=== PATIENT | male | born 1960 | race African-American/Black ===

== ENCOUNTER 2023-07-31 08:55 | Emergency (ER) | payer MEDICARE, MEDICAID, SELFPAY ==
[2023-07-31 09:04] VITALS: BP 161/110; PULSE 106; RESP 20; TEMP 36.6; O2SAT 97; BMI 33.9
[2023-07-31 09:06] VITALS: O2SAT 97
--- NOTE | 2023-07-31 09:19 | ED.EYEPROB1 ---
HPI - Eye Problem General Chief complaint: Eye Problems Stated complaint: VISION TROUBLES Time Seen by Provider: 07/31/23 09:15 Source: patient Limitations: no limitations History of Present Illness HPI Narrative: 62-year-old male presents for vision problems. This has been going on for months and it's in both eyes. He stopped taking his blood pressure medicine months ago. He is worried about his blood sugar. He had cataract surgery in his left eye many years ago and he states he had an appointment to have surgery on his right side for cataract surgery but it was canceled. He doesn't have headache or eye pain. No trauma. Related Data Home Medications Medication Instructions Recorded Confirmed albuterol sulfate 2.5 mg/3 mL 2.5 mg inhalation Q12H 07/31/23 07/31/23 (0.083 %) solution for nebulization albuterol sulfate 90 mcg/actuation 2 puff inhalation Q4H 07/31/23 07/31/23 aerosol inhaler warfarin 5 mg tablet 5 mg PO Q24H 07/31/23 07/31/23 Allergies Allergy/AdvReac Type Severity Reaction Status Date / Time fentanyl AdvReac Intermediate Verified 07/31/23 09:04 piperacillin [From Zosyn] AdvReac Intermediate Verified 07/31/23 09:04 tazobactam [From Zosyn] AdvReac Intermediate Verified 07/31/23 09:04 Review of Systems ROS Narrative A ten point review of systems is negative except as noted above. PFSH PFSH Social History Smoking status: Current every day smoker Exam Narrative Exam Narrative: Nurses note and vital signs reviewed and patient is not hypoxic. General: The patient appears well and in no apparent distress. Patient is resting comfortably on cart. Skin: Warm, dry, no pallor noted. There is no rash noted. Head: Normocephalic, atraumatic Eye: Normal conjunctiva, no drainage, EOMI. PERRL Ears, Nose, Mouth, and Throat: oral mucosa is moist. Nares patent. Cardiovascular: Regular Rate and Rhythm Respiratory: Patient is in no distress, no accessory muscle use, lungs are clear to auscultation, no wheezing, rales or rhonchi Back: non-tender, no CVA tenderness bilaterally to percussion. GI: nontender Musculoskeletal: The patient has no evidence of calf tenderness, no pitting edema, symmetrical pulses noted bilaterally Neurological: A&O x4, normal speech Psychiatric: Cooperative Constitutional Vital Signs, click to edit/add: Last Vital Signs Temp 97.9 F 07/31/23 09:04 Pulse 90 07/31/23 09:50 Resp 16 07/31/23 09:50 BP 134/91 07/31/23 09:31 Pulse Ox 98 07/31/23 09:50 O2 Del Method Room Air 07/31/23 09:04 Course Vital Signs Vital signs: Vital Signs Temperature 97.9 F 07/31/23 09:04 Pulse Rate 106 H 07/31/23 09:04 Respiratory Rate 20 07/31/23 09:04 Blood Pressure 161/110 H 07/31/23 09:04 Pulse Oximetry 97 07/31/23 09:04 Oxygen Delivery Method Room Air 07/31/23 09:04 Temperature 97.9 F 07/31/23 09:04 Pulse Rate 90 07/31/23 09:50 Respiratory Rate 16 07/31/23 09:50 Blood Pressure 134/91 07/31/23 09:31 Pulse Oximetry 98 07/31/23 09:50 Oxygen Delivery Method Room Air 07/31/23 09:04 MDM - Eye Problem MDM Narrative Medical decision making narrative: creatinine is 3.95 today. It was 3.7 in April. He had been on dialysis for a year, ending one year ago. 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 In three days he has an appointment with his PCP and will see him then as well. We discussed blood pressure management as well as following up with an eye doctor. Treatment diagnosis and follow-up were discussed thoroughly with the patient. Differential Diagnosis Differential diagnosis: Likely conjunctivitis, hyphema, subconjunctival hemorrhage, glaucoma and other (chronic kidney disease, hypertension) Lab Data Attestation: I reviewed the patient's lab results. Labs: Lab Results 07/31/23 Range/Units 09:30 WBC 7.7 (4.0-11.0) 10^3/uL RBC 4.48 L (4.70-6.10) 10^6/uL Hgb 12.3 L (14.0-18.0) g/dL Hct 37.9 L (42.0-54.0) % MCV 84.6 (80.0-94.0) fL MCH 27.5 (25.9-34.0) pg MCHC 32.5 (29.9-35.2) g/dL RDW 16.4 H (11.0-15.0) % Plt Count 246 (150-450) 10^3/uL MPV 10.3 (9.5-13.5) fL Neut % (Auto) 79.5 H (43.0-75.0) % Lymph % (Auto) 10.2 L (20.5-60.0) % [place] % (Auto) 8.2 (1.7-12.0) % Eos % (Auto) 1.2 (0.9-7.0) % Baso % (Auto) 0.6 (0.2-2.0) % Neut # (Auto) 6.1 (1.4-6.5) 10^3/uL Lymph # (Auto) 0.8 L (1.2-3.8) 10^3/uL [place] # (Auto) 0.6 (0.3-0.8) 10^3/uL Eos # (Auto) 0.1 (0.0-0.7) 10^3/uL Baso # (Auto) 0.1 (0.0-0.1) 10^3/uL Abs Immat Gran (auto) 0.02 (0.00-0.03) 10^3/uL Imm/Tot Granulo (auto) 0.3 (0.0-0.5) % Sodium 138 (136-145) mmol/L Potassium 4.4 (3.5-5.1) mmol/L Chloride 105 (98-107) mmol/L Carbon Dioxide 24.0 (21.0-32.0) mmol/L Anion Gap 13.4 BUN 65.0 H (7.0-18.0) mg/dL Creatinine 3.95 H (0.70-1.30) mg/dL Est GFR ( Amer) 19 L (>=60) Est GFR (Non-Af Amer) 16 L (>=60) BUN/Creatinine Ratio 16.5 Glucose 105 (74-106) mg/dL Calcium 7.2 L (8.5-10.1) mg/dL ECG Data Attestation: I personally reviewed and interpreted this ECG as follows: (EKG on my interpretation shows no acute findings) Discharge Plan Discharge Chief Complaint: Eye Problems Clinical Impression: Chronic kidney disease, Decreased vision in both eyes Patient Disposition: Home, Self-Care Time of Disposition Decision: 10:30 Condition: Good Mode of Transportation: Private Vehicle Prescriptions / Home Meds: No Action albuterol sulfate 90 mcg/actuation HFA aerosol inhaler 2 puff INHALATION Q4H albuterol sulfate 2.5 mg /3 mL (0.083 %) solution for nebulization 2.5 mg inhalation Q12H warfarin 5 mg tablet 5 mg PO Q24H Instructions: Chronic Kidney Disease (ED) Additional Instructions: See your doctor at your appointment on . Call your kidney doctor to schedule an appointment. Stand Alone Forms: Portal Instructions Referrals: Edouard Kearney DO [Primary Care Provider] - 1 week
--- NOTE | 2023-07-31 09:20 | ECG_ITS ---
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
[2023-07-31 09:31] VITALS: BP 134/91; PULSE 88; RESP 3; O2SAT 99
[2023-07-31 09:33] VITALS: RESP 18
[2023-07-31 09:50] VITALS: PULSE 90; RESP 16; O2SAT 98
[2023-07-31 09:50] LABS: Basophils Absolute Auto 0.1 10^3/uL (0.0-0.1); Basophils Percent Auto 0.6 % (0.2-2.0); Eosinophils Absolute Auto 0.1 10^3/uL (0.0-0.7); Eosinophils Percent Auto 1.2 % (0.9-7.0); Hematocrit 37.9 % (42.0-54.0); Hemoglobin 12.3 g/dL (14.0-18.0); Immature Granulocytes Abs Auto 0.02 10^3/uL (0.00-0.03); Immature Granulocytes Pct Auto 0.3 % (0.0-0.5); Lymphocytes Absolute Auto 0.8 10^3/uL (1.2-3.8); Lymphocytes Percent Auto 10.2 % (20.5-60.0); Mean Corpuscular HGB Conc 32.5 g/dL (29.9-35.2); Mean Corpuscular Hemoglobin 27.5 pg (25.9-34.0); Mean Corpuscular Volume 84.6 fL (80.0-94.0); Mean Platelet Volume 10.3 fL (9.5-13.5); Monocytes Absolute Auto 0.6 10^3/uL (0.3-0.8); Monocytes Percent Auto 8.2 % (1.7-12.0); Neutrophils Absolute Auto 6.1 10^3/uL (1.4-6.5); Neutrophils Percent Auto 79.5 % (43.0-75.0); Platelet Count 246 10^3/uL (150-450); Red Blood Count 4.48 10^6/uL (4.70-6.10); Red Cell Distribution Width 16.4 % (11.0-15.0); White Blood Count 7.7 10^3/uL (4.0-11.0)
[2023-07-31 09:59] LABS: Anion Gap 13.4; BUN Creatinine Ratio 16.5; Calcium 7.2 mg/dL (8.5-10.1); Chloride 105 mmol/L (98-107); Estimated GFR (African America 19 (>=60); Estimated GFR (Non-African Ame 16 (>=60); Glucose 105 mg/dL (74-106); Potassium 4.4 mmol/L (3.5-5.1); Sodium 138 mmol/L (136-145)
== END 2023-07-31 10:38 | disposition home or self-care (01) ==
PROVIDERS: Emergency Provider Emergency Medicine; PCP Internal Medicine
DX: H53.8 Other visual disturbances (principal); N18.9 Chronic kidney disease, unspecified; Z79.899 Other long term (current) drug therapy; Z79.01 Long term (current) use of anticoagulants; F17.210 Nicotine dependence, cigarettes, uncomplicated
CPT/HCPCS: 36415; 80048; 85025; 93005; 99284

== ENCOUNTER 2024-03-29 06:59 | Emergency (ER) | payer MEDICARE, MEDICAID, SELFPAY ==
[2024-03-29] VITALS (9 sets, daily range): BP systolic 144–169; BP diastolic 88–104; PULSE 71–99; TEMP 36.8; O2SAT 94–97; BMI 31.2
--- NOTE | 2024-03-29 07:14 | ECG_ITS ---
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
--- NOTE | 2024-03-29 07:14 | XR_ITS ---
The [address] [address] Patient Name: HIEN JOHNSON MRN: [id number] date: 1960 Sex: M Assigned Patient Location: ER Current Patient Location: ED.MAIN Accession/Order Number: [id number] Exam Date: 03/29/2024 07:20 Report Date: 03/29/2024 08:00 At the request of: JIMBO BAEZ Procedure: XR chest 1V EXAMINATION: XR chest 1V HISTORY: cp COMPARISON: XR chest 04/20/2023 FINDINGS: LUNGS: Moderate opacities within lung bases. VASCULATURE: No increased pulmonary vasculature. PLEURA: Small right pleural effusion. CARDIAC: Cardiomegaly. MEDIASTINUM: No visible mass or adenopathy. BONES: Displaced posterior lateral right seventh and eighth rib fractures. OTHER: Negative. XR/XR chest 1V IMPRESSION: 1. Age-indeterminate posterior lateral right seventh and eighth rib fractures, but new since prior study. 2. Moderate right basilar infiltrates versus atelectasis and suspected small pleural effusion. 3. Cardiomegaly, increased since prior study. Electronically authenticated by: KHANG HEATH Date: 03/29/2024 08:00
--- NOTE | 2024-03-29 07:33 | ED.CHESTPAI1 ---
HPI - Chest Pain General Chief Complaint: Chest Pain Stated Complaint: chest pain Time Seen by Provider: 03/29/24 07:14 Source: patient Mode of arrival: walk-in Limitations: no limitations History of Present Illness HPI narrative: The patient has multiple comorbidities including coronary artery disease and he is supposed to get a stent but because of his history of chronic kidney disease the patient is refusing to get the cardiac cath and stent placement, patient is coming to us with few days history of chest pain retrosternal associated with epigastric pain and pressure that is making him feel full all the time and have no appetite for the last 5 days, the patient have no nausea or vomiting but every time he tries to eat he feel full The patient complaining of 10 out of 10 epigastric pain with no radiation no associated symptoms and his last bowel movement was this morning The patient takes Coumadin for portal vein thrombosis and the last time he checked his INR was a very long time ago Patient also is complaining of shortness of breath that is not an acute issue is chronic and has been getting worse for the last few days Related Data Home Medications ?Medication ?Instructions ?Recorded ?Confirmed albuterol sulfate 2.5 mg/3 mL 2.5 mg inhalation Q12H 07/31/23 07/31/23 (0.083 %) solution for nebulization albuterol sulfate 90 mcg/actuation 2 puff inhalation Q4H 07/31/23 07/31/23 aerosol inhaler warfarin 5 mg tablet 5 mg PO Q24H 07/31/23 07/31/23 Allergies Allergy/AdvReac Type Severity Reaction Status Date / Time fentanyl AdvReac Intermediate Verified 07/31/23 09:04 piperacillin [From Zosyn] AdvReac Intermediate Verified 07/31/23 09:04 tazobactam [From Zosyn] AdvReac Intermediate Verified 07/31/23 09:04 Review of Systems ROS Status of ROS 10 or more systems reviewed and unremarkable except as noted in history and below PFSH PFSH Social History Smoking status: Current every day smoker Little interest or pleasure in doing things: not at all Feeling down, depressed, or hopeless: not at all Exam Narrative Exam Narrative: Nurses notes and vital signs reviewed and patient is not hypoxic. General: Well-appearing and in no apparent distress. Skin: Warm, dry, no pallor noted. No rash. Head: Normocephalic, atraumatic. Neck: Supple, non-tender. Eye: Pupils are equal, round and EOMI. No scleral icterus. Ears, Nose, Mouth, and Throat: TM are clear, no nasal mucosal hypertrophy. Oral mucosa is moist, no posterior oropharynx erythema, uvula is mid-line Cardiovascular: Regular Rate and Rhythm without murmur, gallop or rub. Respiratory: No accessory muscle use or respiratory distress. Lungs are clear to auscultation, no wheezing, rales or rhonchi Chest Wall: no tenderness Back: No midline thoracic or lumbar vertebral tenderness. No CVA tenderness Musculoskeletal: normal ROM, no calf or popliteal tenderness, no lower extremity edema/swelling GI: Abdomen is soft, non-distended. Multiple scars previous surgery The patient does have tenderness upon palpation of the upper part of the abdomen with some rigidity noticed in the upper abdomen too. Neurological: A&O x4. No cranial nerve dysfunction observed. No truncal ataxia. Moves all extremities. Sensation intact. Psychiatric: Cooperative and interactive. Normal mood and affect. Constitutional Vital Signs, click to edit/add: Last Vital Signs Temp 98.2 F 03/29/24 07:05 Pulse 85 03/29/24 11:17 Resp 18 03/29/24 11:17 BP 149/96 H 03/29/24 11:17 Pulse Ox 96 03/29/24 11:17 O2 Del Method Room Air 03/29/24 07:05 Course Vital Signs Vital signs: Vital Signs Temperature 98.2 F 03/29/24 07:05 Pulse Rate 99 H 03/29/24 07:05 Respiratory Rate 18 03/29/24 07:05 Blood Pressure 169/104 H 03/29/24 07:05 Pulse Oximetry 97 03/29/24 07:05 Oxygen Delivery Method Room Air 03/29/24 07:05 Temperature 98.2 F 03/29/24 07:05 Pulse Rate 85 03/29/24 11:17 Respiratory Rate 18 03/29/24 11:17 Blood Pressure 149/96 H 03/29/24 11:17 Pulse Oximetry 96 03/29/24 11:17 Oxygen Delivery Method Room Air 03/29/24 07:05 MDM - Chest Pain MDM Narrative Medical decision making narrative: The patient EKG showing sinus rhythm with a heart rate of [address] elevation or depression The patient have multiple comorbidities including the fact that he already been diagnosed with coronary artery disease refusing a stent placement due to his chronic kidney disease He is presented with chest pain and shortness of breath that is mostly at least unstable angina The patient INR was 1.2 and he is supposed to be on Coumadin for his portal vein thrombosis CBC as well did not show any acute pathology and hemoglobin was within baseline Patient also had a troponin negative twice He was started on heparin after discussing the case with 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 and [employer] regarding the patient to be admitted for further coronary artery disease workup The patient also had a CAT scan of the abdomen and pelvis without contrast that showed some pericardial effusion but with the fact that we do not have a echo there is no confirmation of the effusion yet, the patient was stable the whole time he was here and the patient had no hypotension at any time he is tachypneic on exertion but that could be secondary to CHF exacerbation specially with his BNP elevated above 35,000 The patient started on Lasix 60 mg IV once after discussing the case with who accepted the admit the patient Lab Data Labs: Lab Results 03/29/24 03/29/24 Range/Units 07:29 09:38 WBC 7.7 (4.0-11.0) 10^3/uL RBC 4.38 L (4.70-6.10) 10^6/uL Hgb 12.6 L (14.0-18.0) g/dL Hct 36.4 L (42.0-54.0) % MCV 83.1 (80.0-94.0) fL MCH 28.8 (25.9-34.0) pg MCHC 34.6 (29.9-35.2) g/dL RDW 16.2 H (11.0-15.0) % Plt Count 211 (150-450) 10^3/uL MPV 10.4 (9.5-13.5) fL Seg Neuts % (Manual) 75.0 (43.0-75.0) Lymphocytes % (Manual) 9.0 L (20.5-60.0) % Monocytes % (Manual) 10.0 (1.7-12.0) % Eosinophils % (Manual) 4.0 (0.9-7.0) % Basophils % (Manual) 2.0 (0.2-2.0) % Neutrophils # (Manual) 5.77 (1.4-6.5) 10^3/uL Lymphocytes # (Manual) 0.69 L (1.20-3.80) 10^3/uL Monocytes # (Manual) 0.77 (0.30-0.80) 10^3/uL Eosinophils # (Manual) 0.30 (0.00-0.70) 10^3/uL Basophils # (Manual) 0.15 H (0.00-0.10) 10^3/uL Target Cells 1+ PT 13.2 H (9.0-11.6) sec INR 1.28 Sodium 139 (136-145) mmol/L Potassium 4.5 (3.5-5.1) mmol/L Chloride 104 (98-107) mmol/L Carbon Dioxide 21.8 (21.0-32.0) mmol/L Anion Gap 17.7 BUN 59.0 H (7.0-18.0) mg/dL Creatinine 4.05 H (0.70-1.30) mg/dL Est GFR ( Amer) 18 L (>=60) Est GFR (Non-Af Amer) 15 L (>=60) BUN/Creatinine Ratio 14.6 Glucose 82 (74-106) mg/dL Calcium 8.4 L (8.5-10.1) mg/dL Total Bilirubin 2.4 H (0.2-1.0) mg/dL AST 20 (15-37) U/L ALT 14 L (16-63) U/L Alkaline Phosphatase 135 H (46-116) U/L Troponin I High Sens 26.7 27.1 (4.0-76.1) pg/mL NT-Pro-B Natriuret Pep >83675.0 H* (<=900.0) pg/mL Total Protein 7.6 (6.4-8.2) g/dL Albumin 3.0 L (3.4-5.0) g/dL Globulin 4.6 g/dL Albumin/Globulin Ratio 0.7 Discharge Plan Discharge Chief Complaint: Chest Pain Clinical Impression: Breath shortness, Renal failure, Chest pain due to CAD Congestive heart failure (CHF) Qualifiers: Heart failure type: systolic Heart failure chronicity: acute Qualified Code(s): I50.21 - Acute systolic (congestive) heart failure Fluid overload Qualifiers: Hypervolemia type: unspecified Qualified Code(s): E87.70 - Fluid overload, unspecified Patient Disposition: [facility] Time of Disposition Decision: 11:54 Discharge location: community health
--- OUTSIDE RECORDS SUMMARY | 2024-03-29 07:36 | XMS_ITS | CCD ---
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 Fat Fry Cook Name Role Phone PHYSICIAN, DEFAULT Unavailable Unavailable PHYSICIAN, DEFAULT Unavailable Unavailable BETSY GILBERT Unavailable Unavailable Ricarda Al Unavailable Bettye Lopes Unavailable Unavailable StaBettye ascencio Unavailable Unavailable ANAYA NUNEZ Unavailable Unavailable STABETTYE ASCENCIO ABRAHAN Unavailable Unavailab ANAYA Martinez Unavailable Unavailable RICARDA AL Unavailable Unavailable STAHANNYICKBETTYE ABRAHAN Unavailable Unavailab RICARDA Fajardo Unavailable Unavailable STADNICK, BETTYE ABRAHAN Unavailable Unavailab le RICARDA AL Unavailable Unavailable Scarberry, Hadley Unavailable Unavailable Meeson, Loren Unavailable Unavailable Ricarda Al Unavailable Unavailable Ronen, Lonnie Unavailable Unavailable SeiduRickieda Unavailable Unavailable Ronen, Lonnie Unavailable Unavailable Ricarda Al Primary Care Provider Ricarda Al Unavailable Unavailable Lonnie Hardwick MD Unavailable Unavailable Aureliano Perez MD Unavailable Unavailable Ricarda Al Unavailable Unavailable Unavailable Tristan Wallis Unavailable Starla Larson Unavailable Ramona Petty Unavailable DO Ricarda Al Primary Care Provider MD Julian Rosales Admit Provider MD Julian Rosales Attending Provider MD Tristan Wallis Other Provider MD Ramona Petty Other Provider DO Bettye Arellano Other Provider MD Calderon Ferris Emergency Provider MD Ramona Petty Attending Provider [phone] JovitaJOVITA oglesbyN Armond Emergency Provider DO Paco Silva Emergency Provider Fifi Pitts Unavailable DO Ricarda Al Primary Care Provider MD Tristan Wallis Attending Provider RICARDA AL Primary Care Physician Christina Mart Unavailable Unavailable Marcelle Zamora Unavailable Unavailable PROVIDER, UNKNOWN Attending Unavailable PROVIDER, UNKNOWN Admitting Unavailable Unavailable Primary Care Provider UnavailRICARDA Colby Primary Care Unavailable Ricarda Al Primary Care Unavailable Calderon Ferris Admitting Unavailable Calderon Ferris Attending Unavailable Ricarda Al Primary Care Unavailable Al Eva Marrero, Ahmeti Admitting Unavailab le Al Salti Bijan De La Fuente, Julian Attending Unavailab le Bimal, Tristan Consulting Unavailable Ramona Petty Consulting UnavailBettye Olson Consulting Unavailable Ciarra Alves Consulting Unavailable Jodi Ruiz Attending Unavailable Ricarda Al Primary Care Unavailable Al Eva Marrero, Ahmeti Admitting Unavailab le Bimal, Tristan Consulting Unavailable Raphael Maradiaga Consulting Unavailable Kathrine Carranza Consulting Unavailable Radha Price Consulting Unavailable Debbi Guzman Consulting Unavailable Aries Christine Consulting Unavailable Fifi Pitts Consulting Unavailable Carlin Coronado Consulting Unavailable Ramona Petty Consulting UnavailRicarda Colby Primary Care Unavailable Bimal, Tristan Attending Unavailable Bimal, Tristan Admitting Unavailable Bimal, Tristan Attending Unavailable Ricarda Al Primary Care Unavailable Bimal, Tristan Admitting Unavailable Ramona Petty Attending Unavailabl e David, Ramona West Admitting UnavailRicarda Colby Primary Care Unavailable David, Ramona West Admitting Unavailabl e David, Ramona West Attending Unavailabl e Ricarda Al Primary Care Unavailable David, Ramona West Admitting UnavailRamona Cummings Attending Unavailabl e Ricarda Al Primary Care Unavailable Mikaela, Ricarda Primary Care Unavailable Tupa, Paco Dan Admitting Unavailable Tupa, Paco Dan Attending Unavailable Mikaela, Ricarda Primary Care Unavailable Jovita, Armond Admitting Unavailable Jovita, Armond Attending Unavailable Mikaela, Ricarda Unavailable MIKAELA, DR NUNN Primary Care Unavailable MIKAELA, DR NUNN Admitting Unavailable MIKAELA, DR NUNN Attending Unavailable MIKAELA, DR NUNN Consulting Unavailable ZIEBPHILIP, DR KHANG Vaz Consulting Unavailable SAMSA ., LINDSEY Attending Unavailable MIKAELA, DR NUNN Primary Care Unavailable SAMSA ., LINDSEY Admitting Unavailable SAMSA ., LINDSEY Consulting Unavailable MIKAELA, DR NUNN Consulting Unavailable MIKAELA, DR NUNN Primary Care Unavailable MIKAELA, DR NUNN Attending Unavailable MIKAELA, DR NUNN Admitting Unavailable IVANA, DR KHANG Vaz Consulting Unavailable MIRTA, DR ANDRESSA Vaz Consulting Unavailable MIRTA, DR ANDRESSA Vaz Admitting Unavailable MIRTA, DR ANDRESSA Vaz Attending Unavailable MIKAELA, DR NUNN Primary Care Unavailable ARVIZU, ISAAC Consulting Unavailable BLUE, AILYN Consulting Unavailable MIRTA, DR ANDRESSA Vaz Consulting Unavailable MIKAELA, DR NUNN Primary Care Unavailable FIFI ., SARIKA Attending Unavailable FIFI ., SARIKA Admitting Unavailable FIFI ., SARIKA Consulting Unavailable KLOMER, BETTYE Consulting Unavailable GARETH, CIARRA Consulting Unavailable DELFIN ., DR BRIANA Meyers Admitting Unavailable TIFFANIE ., DR HATFIELD Procedure Practitioner Unavailab le DELFIN ., DR BRIANA Meyers Attending Unavailable DELFIN ., DR BRIANA Meyers Consulting Unavailable MIKAELA, DR NUNN Primary Care Unavailable MONEE, DR BETTYE Bello Consulting Unavailable TIFFANIE ., DR HATFIELD Consulting Unavailable Mikaela, Dr. Ricarda Ivy Referring Linda Al, Dr. Ricarda Ivy Primary Care MD MARTA You Attending Linda Kumar, Dr. Alla Pickett Attending Unavailab Georges, Dr. Alla Pickett Referring Unavailab shreya Al, Dr. Ricarda Ivy Primary Care Linda Kumar, Dr. Alla Pickett Attending Unavailab shreya Kumar, Dr. Alla Pickett Referring Unavailab shreya Al, Dr. Ricarda Ivy Primary Care Linda Al, Dr. Ricarda Ivy Primary Care Linda Nunez, Dr. Arevalo Attending Unavailable Mikaela, Dr. Ricarda Ivy Referring Linda Al, Dr. Ricarda Ivy Primary Care Linda Hardwick, Dr. Lonnie Nunn Attending Unavaila ble Ronen, Dr. Lonnie Nunn Referring Unavaila ble Self, Referral Referring Unavailable Ball, Dr. Ricarda Ivy Primary Care MD MARTA You Attending Linda Al, Dr. Ricarda Ivy Primary Care Gunner Kumari Attending Unavailable Trabginnai, Gunner Referring Unavailable Trabginnai, Gunner Attending Unavailable Traboulclaudyi, Gunner Referring Unavailable Ball, Dr. Ricarda Ivy Primary Care Linda Hickman II, Dr. César Antonio Attending Unavailable Ball, Dr. Ricarda Ivy Primary Care Linda Hickman II, Dr. César Antonio Attending Unavailable Ball, Dr. Ricarda Ivy Primary Care Linda Hickman II, Dr. César Antonio Attending Unavailable Ball, Dr. Ricarda Ivy Primary Care Linda Al, Dr. Ricarda Ivy Primary [facility] Linda Hickman II, Dr. César Antonio Attending Unavailable Ball, Dr. Ricarda Ivy Primary [facility] Linda Hickman II, Dr. César Antonio Attending Unavailable Ball DO, Ricarda Meyers Primary Care Provider CHON GUTIÉRREZ Attending Unavailable Unavailable Primary Care Provider UnavailRicarda Colby MD Primary Care Provider Ricarda Al DO Primary Care Provider GUNNER BAEZ Attending Unavailable MIKAELA, RICARDA E Primary Care Unavailable Ball Ricarda OGLESBY Primary Care Provider COLE MCCRAY Attending Unavailable BALL, RICARDA E Primary Care Unavailable BALL, RICARDA E Primary Care Unavailable BALL, RICARDA E Primary Care Unavailable CÉSAR SIMONS Referring Unavailable PATRICE CASTAÑEDA Attending Unavailable MIKAELA, RICARDA E Primary Care Unavailable CÉSAR SIMONS Attending Unavailable MIKAELA, RICARDA E Primary Care Unavailable PEYTON ARELLANO Attending Unavailable BALL, RICARDA E Primary Care Unavailable BALL, RICARDA E Primary Care Unavailable KATHRINE CAIN Attending Unavailable PATRICE CASTAÑEDA Referring Unavailable BALL, RICARDA E Primary Care Unavailable PATRICE CASTAÑEDA Attending Unavailable PATRICE CASTAÑEDA Admitting Unavailable PATRICE CASTAÑEDA Attending Unavailable BALL, RICARDA E Primary Care Unavailable ANTONIO BROWN Attending Unavailable BALL, RICARDA E Primary Care Unavailable RICARDA AL Primary Care Unavailable PATRICE CASTAÑEDA Attending Unavailable RICARDA AL Primary Care Unavailable Ricarda Al DO Primary Care Provider Ankush COUCH Attending Unavailable Ankush COUCH Admitting Unavailable NOHC, XXXX Consulting Unavailable Jose Iqbal Attending Unavailable Chriss Oliver Attending Unavailable Akkina, Raymond Admitting Unavailable Akkina, Raymond Attending Unavailable Akkina, Raymond Admitting Unavailable Akkina, Raymond Attending Unavailable Akkina, Raymond Admitting Unavailable Akkina, Raymond Attending Unavailable RICARDA AL Admitting Unavailable RICARDA AL Attending Unavailable Akkina, Raymond Admitting Unavailable Akkina, Raymond Attending Unavailable Slona Benites Attending Unavailable Tanner REYNOSO Admitting Unavailable AMIR, Hasdennis Admitting Unavailable AMIRBetyan Attending Unavailable Milo Baezf Consulting Unavailable MD Gunner Baez Consulting Unavailab le Gunner Baez Consulting Unavailable Ethan Moleshaf Consulting Unavailable Trabjhonatan Mourhaf Consulting Unavailable Trabjhonatan Mourhaf Consulting Unavailable Ethan Mourhaf Consulting Unavailable Milo Baezf Consulting Unavailable Toya Baezhaf Consulting Unavailable César Hickman Consulting Unavailable MD César Hickman Consulting Unavailabl César Rizzo Consulting Unavailable César Hickman Consulting Unavailable César Hickman Consulting Unavailable César Hickman Consulting Unavailable César Hickman Consulting Unavailable César Hickman Consulting Unavailable César Hickman Consulting Unavailable Jayykina, Raymond Consulting Unavailable MD Kitty Raymond Consulting Unavailable Akkina, Raymond Consulting Unavailable Akkina, Raymond Consulting Unavailable Akkina, Raymond Consulting Unavailable Akkina, Raymond Consulting Unavailable Akkina, Raymond Consulting Unavailable Akkina, Raymond Consulting Unavailable Akkina, Raymond Consulting Unavailable Akkina, Raymond Attending Unavailable Akkina, Raymond Admitting Unavailable Allergies Allergy Classification Reported Allergen(s) Allergy Type Date of Onset Reaction(s) Facility Opioid Agonists (6 sources) fentaNYL; Translations: [fentanyl] Drug Allergy [facility] Work Phone: Piperacillin / tazobactam (6 sources) Piperacillin / tazobactam; Translations: [Zosyn] Drug Allergy [facility] Work Phone: (20 sources) fentaNYL; Translations: [FENTANYL] Drug Allergy 05-01-20 11 Mental Status Change, Unknown (qualifier value), Other, Hallucinations , Unknown [facility] (20 sources) Piperacillin / tazobactam; Translations: [Zosyn] Drug Allergy 12-10-19 14 skin bublbled up [facility] (9 sources) Angiotensin Converting Enzyme ([place]) Inhibitors; Translations: [[place] Inhibitors] Allergy to drug (finding) 08-07-19 24 [place] [address] Repository (5 sources) Piperacillin; Translations: [piperacillin] Drug Allergy 02-09-20 22 Other, [facility] (5 sources) tazobactam; Translations: [tazobactam] Drug Allergy 02-09-20 22 [facility] (3 sources) PIPERACILLIN SOD-TAZOBACTAM SO; Translations: [PIPERACILLIN SOD-TAZOBACTAM SO] Propensity to adverse reactions to drug (disorder) 08-25-19 21 Other [facility] Repository (1 source) fentaNYL Drug Allergy 02-09-[address] [facility] Repository (1 source) fentaNYL Drug Allergy 12-13-19 13 [facility] Repository (1 source) fentaNYL Drug Allergy 09-28-19 21 [facility] Repository (15 sources) Piperacillin / tazobactam; Translations: [PIPERACILLIN-TA ZOBACTAM] Drug Allergy 01-18-20 13 Rash, Hives, Itching [facility] Work Phone: (1 source) Angiotensin-conv erting enzyme inhibitor agent Drug Intolerance 08-07-19 24 Other [facility] (2 sources) Angiotensin-conv erting enzyme inhibitor agent Drug Intolerance 08-07-19 24 Other [facility] (1 source) Ondansetron; Translations: [ondansetron] Drug Allergy [facility] Repository (1 source) Duragesic-25; Translations: [Duragesic-25] Propensity to adverse reactions (disorder) [facility] Repository Medications Current Medications Medication Drug Class(es) Dates Sig (Normalized) Sig (Original) Acetaminophen / oxyCODONE (6 sources) Opioid Agonist Start: 05-22-2022 Percocet 325 mg-5 mg Tab 1 tab(s), Oral, q4hr as needed for pain, 15 tab(s), Refill(s) 0, Take one tab by mouth every four hours as needed for pain Start Date: 05/22/22 Status: Ordered Start: 05-22-2022 Percocet 325 m g-5 mg Tab 1 tab(s), Oral, q4hr as needed for pain, 15 tab(s), Refill(s) 0, Take one tab by mouth every four hours as needed for pain Start Date: 05/22/22 Status: Ordered albuterol 0.83 mg/ml inhalation solution (20 sources) beta2-Adrenergic Agonist Start: 12-16-2023 albut delmis 2.5 mg /3 mL (0.083 %) nebulizer solution USE 1 VIAL IN NEBULIZER 4 TIMES DAILY 12/16/2023 Active Start: 11-14-2023 take 2 puff(s) by in halation every four hours albuterol 90 mcg/actuation inhaler Inhale 2 puffs every 4 hours if needed for shortness of breath. 11/14/2023 Active Start: 10-22-2023 take 2.5 mg by inhal ation every six hours Albuterol Sulfate Active 2.5 MG INHALATION Every 6 hours October 22, 2023 12:00am Start: 07-21-2023 take 2 puff(s) by mo uth every four hours as needed for wheezing albuterol HFA 90 mcg/act inhaler INHALE 2 PUFFS BY MOUTH EVERY 4 HOURS NEEDED FOR WHEEZING AND FOR SHORTNESS OF BREATH 0 07/21/2023 Active Start: 05-07-2023 albuterol (PRO VENTIL) 2.5 mg /3 mL (0.083 %) nebulizer solution Use 1 mL via nebulizer two times a day. 0 05/07/2023 Active Start: 05-07-2023 Albuterol Sulf ate (2.5 MG/3ML) 0.083% 3 mL as needed Inhalation every 6 hrs as needed for cough, SOB for 30 days Apr, Active Start: 05-07-2023 Albuterol Sulf ate (2.5 MG/3ML) 0.083% 3 mL as needed Inhalation every 6 hrs as needed for cough, SOB for 30 days Apr, Active Start: 05-02-2023 take 2 puff(s) by in halation every four hours for wheezing albuterol 90 mcg/inh inhalation powder 2 puff(s), Inhalation, q4hr for wheezing or SOB, 1 EA, Refill(s) 3, [facility], 184, cm, 04/30/23 14:03:00 EDT, Height/Length Dosing, 107.9, kg, 04/30/23 14:03:00 EDT, Weight Dosing Start Date: 05/02/23 Status: Ordered Start: 05-02-2023 take 1 puff(s) by in halation twice daily albuterol sulfate 90 mcg/actuation breath activated powder inhaler Inhale 1 Puff as instructed two times a day. 0 05/02/2023 Active Start: 11-16-2021 take 1 puff(s) by in halation every four hours Albuterol Sulfate Active 2 PUFF INHALATION Q4H November 16, 2021 12:00am Comment on above: Use 1 mL via nebuliz er two times a day. Inhale 1 Puff as ins tructed two times a day. Albuterol Sulfate 108 (90 Base) MCG/ACT (20 sources) take 1 puff(s) by inhalation every four hours as needed take 1 puff(s) by in halation every four hours as needed Albuterol Sulfate 108 (90 Base) MCG/ACT 1 puff as needed Inhalation every 4 hrs Active atorvastatin (20 sources) HMG-CoA Reductase Inhibitor Start: 09-15-2023 take 1 tablet by mouth once daily in the evening Atorvastatin Active 0 .ROUTE .COMPLEX September 15, 2023 4:59pm TAKE ONE TABLET BY MOUTH DAILY AT 5PM IN THE EVENING Start: 05-22-2022 take 1 tablet by taylor th at bedtime atorvastatin 10 mg Tab 10 mg = 1 tab(s), Oral, Bedtime, # 90 tab(s), Refills(s) 0 Start Date: 05/22/22 Status: Ordered Start: 11-16-2021 End: 09-15-2023 take 1 tablet by mouth once daily atorvastatin 20 mg Tab 20 mg = 1 tab(s), Oral, Daily Start Date: 04/30/23 Status: Ordered Start: 05-03-2019 End: 03-06-2021 take 1 tablet by mouth once daily at bedtime Atorvastatin (Lipitor) 20 mg tablet Discontinued 20 MG PO Daily at bedtime June 12, 2019 9:13am March 06, 2021 6:40pm 120 actuat budesonide 0.16 mg/actuat / formoterol fumarate 0.0048 mg/actuat / glycopyrrolate 0.009 mg/actuat metered dose inhaler (20 sources) Corticosteroid, beta2-Adrenergic Agonist Start: 10-22-2023 take 1 puff(s) by inhalation twice daily Ogsaywhcfi-Gaukvysf-Lawuvdgjdi Active 2 PUFF INHALATION Twice daily October 22, 2023 12:00am Start: 08-21-2023 Breztri Aerosp here 160-9-4.8 MCG/ACT aerosol Start: 02-26-2023 take 2 puff(s) by in halation twice daily Breztri Aerosphere 160-9-4.8 MCG/ACT 2 puffs Inhalation Twice a day Feb, Active Start: 02-26-2023 take 1 puff(s) by in halation once daily hdnlkwkdhs-cwgrhwvg-htnmbnnxgp (BREZTRI AEROSPHERE) 160-9-4.8 mcg/actuation HFA aerosol inhaler Inhale 1 Puff as instructed once daily. 0 02/26/2023 Active Comment on above: Inhale 1 Puff as ins tructed once daily. bumetanide 2 mg oral tablet (20 sources) Loop Diuretic Start: 08-26-2023 bumetanide (Bumex) 2 MG tablet Start: 04-20-2023 take 1 tablet by taylor th three times daily bumetanide 2 mg Tab 2 mg = 1 tab(s), Oral, TID, # 6 tab(s), Refills(s) 0, Pharmacy: [facility], 184, cm, 04/20/23 21:09:00 EDT, Height/Length Dosing, 107.9, kg, 04/20/23 21:09:00 EDT, Weight Dosing Start Date: 04/20/23 Status: Ordered Start: 05-22-2022 take 1 tablet by taylor th twice daily bumetanide 2 mg Tab 2 mg = 1 tab(s), Oral, BID, Refills(s) 0 Start Date: 05/22/22 Status: Ordered Start: 12-30-2021 End: 04-24-2022 take 2 mg by mouth twice daily Bumetanide Discontinued 2 MG PO 2 times daily December 30, 2021 2:11pm April 24, 2022 3:21pm Start: 11-20-2021 End: 12-30-2021 take 2 mg by mouth once daily Bumetanide Discontinued 2 MG PO Daily November 20, 2021 12:00am December 30, 2021 2:12pm Start: 11-16-2021 End: 11-20-2021 take 2 mg by mouth twice daily Bumetanide Discontinued 2 MG PO Twice daily November 16, 2021 12:00am November 20, 2021 12:16pm Comment on above: Take 1 tablet by taylor two times a day. calcipotriene 0.05 mg/ml topical cream (3 sources) Vitamin D Analog Start: 02-25-2018 calcipotriene (DOVONOX) 0.005 % cream Apply topically daily. 0 02/25/2018 Active calcitriol 0.32525 mg oral capsule (20 sources) Vitamin D3 Analog Start: 11-16-2021 Calcitriol Active MCG November 16, 2021 12:00am has not started yet Start: 11-09-2021 take 0.25 ug by mout h three times weekly Calcitriol Active 0.25 MCG PO 3 Times a week November 16, 2021 12:00am has not started yet Start: 11-09-2021 take 1 capsule by mo [facility] three times weekly Calcitriol 0.25 MCG 1 capsule Orally Three times a Week for 90 day(s) Oct, Active carvedilol 3.125 mg oral tablet (20 sources) alpha-Adrenergic Ruba, beta-Adrenergic Ruba Start: 12-31-2023 End: 12-30-2024 take 1 tablet by mouth twice daily carvedilol (Coreg) 3.125 mg tablet Indications: Dilated cardiomyopathy (Multi) , Primary hypertension Take 1 tablet (3.125 mg) by mouth 2 times daily (morning and late afternoon). 180 tablet 3 12/31/2023 12/30/2024 Active Start: 08-06-2023 take 1 tablet by mouth once ca rvedilol (Coreg) 6.25 MG tablet TAKE ONE TABLET BY MOUTH EVERY TWELVE HOURS @ 9AM & 9PM 0 08/06/2023 Active Start: 11-20-2021 End: 08-30-2024 take 1 tablet by mouth twice daily carvedilol 6.25 mg Tab 6.25 mg = 1 tab(s), Oral, BID, # 60 tab(s), Refills(s) 0 Start Date: 05/22/22 Status: Ordered Start: 01-21-2020 End: 09-03-2023 take 1 tablet by mouth twice daily Carvedilol (Coreg) 12.5 mg tablet Discontinued 12.5 MG PO Twice daily June 24, 2020 1:00am November 20, 2021 12:16pm Start: 04-28-2019 End: 06-24-2020 take 3.125 mg by mouth twice daily Carvedilol Discontinued 3.125 MG PO Twice daily April 28, 2019 12:00am June 24, 2020 11:45pm Start: 04-23-2019 carvedilol Ref ills(s) 0 Start Date: 04/23/19 Status: Ordered Carvedilol 3.125 MG Oral Tablet Quantity: 0 Refills: 0 Ordered: 27-Aug-2019 DO Active Comment on above: Take 12.5 mg by mout h twice daily. Take 6.25 mg by mout h two times a day with meals. cholecalciferol 0.125 mg oral capsule (2 sources) Vitamin D take 1 capsule by mouth once daily cholecalciferol (Vitamin D-3) 125 MCG (5000 UT) capsule Take 1 capsule (125 mcg) by mouth once daily. Active famotidine 20 mg oral tablet (4 sources) Histamine-2 Receptor Antagonist Start: 10-19-19 take 1 tablet by mouth twice daily Pepcid 20 mg Tab 20 mg = 1 tab(s), Oral, BID, # 60 tab(s), Refills(s) 0, Pharmacy: [facility], 182, cm, 10/18/23 6:32:00 EDT, Height/Length Dosing, 92, kg, 10/18/23 9:51:00 EDT, Weight Dosing Start Date: 10/19/23 Status: Ordered 15 ml ferric carboxymaltose 50 mg/ml injection (1 source) Start: 11-10-19 Injectafer 750 MG/15ML as directed Intravenous Oct, Active ferrous gluconate 324 mg oral tablet (20 sources) Start: 11-21-19 Ferrous Gluconate (FERGON) 324 mg (38 mg iron) tablet Take by mouth every 24 hours. 0 11/20/2021 Active Start: 11-20-2021 End: 10-22-2023 take 1 tablet by mouth once daily ferrous gluconate 324 (38 Fe) mg tablet Take 1 tablet (324 mg) by mouth once daily. 11/20/2021 Active Comment on above: Take by mouth every 24 hours. 60 actuat fluticasone propionate 0.113 mg/actuat / salmeterol xinafoate 0.014 mg/actuat dry powder inhaler (20 sources) Corticosteroid, beta2-Adrenergic Agonist fluticasone propion-salmeteroL (AirDuo RespiClick) 113-14 mcg/actuation inhaler Inhale every 12 hours. Active take 1 puff(s) by inhalation twi ce daily Fluticasone-Salm eterol 113-14 MCG/ACT Inhalation Aerosol Powder Breath Activated as directed Quantity: 0 Refills: 0 Ordered: 08-Jun-2022 DO Active 30 actuat fluticasone furoate 0.1 mg/actuat / umeclidinium 0.0625 mg/actuat / vilanterol 0.025 mg/actuat dry powder inhaler (13 sources) Anticholinergic, Corticosteroid, beta2-Adrenergic Agonist Start: 06-24-2020 zjnftwiffwq-newiywjgs-qkrsfq er (TRELEGY ELLIPTA) 100-62.5-25 mcg inhalation powder Daily 0 06/24/2020 Active Start: 06-24-2020 End: 10-22-2023 Ylsrpazeflj-Kifsimkzr-Czrsqq er (Trelegy Ellipta) 100-62.5-25 mcg blister with device Discontinued 1 INH INHALATION Daily June 24, 2020 1:00am October 22, 2023 1:44pm Start: 06-24-2020 Fluticasone-Um eclidin-Vilanter (Trelegy Ellipta) 100-62.5-25 mcg blister with device Active 1 INH INHALATION Daily June 24, 2020 1:00am End: 09-03-2023 take 1 puff(s) by inhalation every twenty-four hours zjrkdqwhznl-qtfhdsskh-nvxosifv (TRELEGY ELLIPTA) 100-62.5-25 mcg inhalation powder Inhale 1 Puff as instructed every 24 hours. 0 09/03/2023 Discontinued (Course of therapy completed) Trelegy Ellipta 100-62.5-25 MCG/INH Inhalation Aerosol Powder Breath Activated As directed. Quantity: 0 Refills: 0 Ordered: 27-Sep-2021 DO Active Comment on above: Inhale 1 Puff as ins tructed every 24 hours. Daily 12 hr guaiFENesin 600 mg extended release oral tablet (7 sources) Start: 3 take 1 tablet by mouth every twelve hours Mucinex 600 MG 1 tablet as needed Orally every 12 hrs for 14 days Mar, Active hydrALAZINE hydrochloride 10 mg oral tablet (20 sources) Arteriolar Vasodilator Start: 2 take 1 tablet by mouth three times daily hydrALAZINE 10 mg Tab 10 mg = 1 tab(s), Oral, TID, Refills(s) 0 Start Date: 05/22/22 Status: Ordered Start: 06-26-2020 End: 11-20-2021 take 50 mg by mouth three times daily Hydralazine Discontinued 50 MG PO Three times daily 90 June 26, 2020 1:00am November 20, 2021 12:16pm See your primary care provider or cardiology for refills Start: 06-18-2019 End: 09-03-2023 take 25 mg by mouth three times daily Hydralazine Discontinued 25 MG PO Three times daily 90 June 18, 2019 1:00am June 26, 2020 3:08pm Start: 06-12-2019 End: 06-18-2019 take 10 mg by mouth three times daily Hydralazine Discontinued 10 MG PO Three times daily June 12, 2019 1:00am June 18, 2019 10:42am Comment on above: Take 1 tablet by taylor th three times a day. insulin detemir (3 sources) Insulin Analogue insulin detemir (LEVEMIR FLEXPEN SUBQ) Inject 3 Units under the skin as needed. 0 Active insulin detemir (LEVEMIR FLEXPEN SUBQ) Inject 3 Units under the skin as needed. Active 2.5 ml iron sucrose 20 mg/ml injection (14 sources) Parenteral Iron Replacement Start: 11-14-2021 Venofer 20 MG/ML as directed Intravenous Oct, Active Start: 11-14-2021 Venofer 20 MG/ ML as directed Intravenous Oct, Active isosorbide dinitrate 10 mg oral tablet (20 sources) Nitrate Vasodilator Start: 11-16-2021 take 20 mg by mouth twice daily Isosorbide Dinitrate Active 20 MG PO Twice daily November 16, 2021 12:00am Start: 06-26-2020 End: 03-06-2021 take 20 mg by mouth three times daily Isosorbide Dinitrate Discontinued 20 MG PO Three times daily June 26, 2020 1:00am March 06, 2021 6:36pm See your primary care provider or cardiology for refills Start: 06-12-2019 End: 08-30-2024 take 1 tablet by mouth three times daily isosorbide dinitrate 10 mg Tab 10 mg = 1 tab(s), Oral, TID Start Date: 09/09/23 Status: Ordered take 1 tablet by taylor th once daily Isosorbide Dinitrate 20 MG Oral Tablet TAKE 1 TABLET EVERY 8 HOURS DAILY. Quantity: 0 Refills: 0 Ordered: 27-Sep-2021 DO Active Isosorbide Dinit rate 10 MG Oral Tablet Quantity: 0 Refills: 0 Ordered: 27-Aug-2019 DO Active Comment on above: Take 10 mg by mouth three times daily. Take 10 mg by mouth three times a day. 200 actuat levalbuterol 0.04 5 mg/actuat metered dose inhaler (7 sources) beta2-Adrenergic Agonist levalbu terol (Xopenex) 45 mcg/actuation inhaler Inhale every 4 hours. Active take 1 puff(s) by in halation every four hours as needed Xopenex HFA 45 MCG/ACT 1 puff as needed Inhalation every 4 hrs Active mupirocin 0.02 mg/mg topical ointment (1 source) RNA Synthetase Inhibitor Antibacterial Start: 08-13-2023 Mupirocin 2 % 1 application Externally Twice a day for 10 days Jul, Active 24 hr nicotine 0.875 mg/hr transdermal system (9 sources) Cholinergic Nicotinic Agonist Start: 09-10-2023 End: 10-01-2023 nicotine 21 mg/24 hr Transderm ER Film 1 patch(es), TransDermal, Daily for 21 day(s), 21 patch(es), Refill(s) 0, [facility], 182, cm, 09/08/23 20:58:00 EST, Height/Length Dosing, 117.5, kg, 09/08/23 20:58:00 EST, Weight Dosing Start Date: 09/10/23 Stop Date: 10/01/23 Status: Ordered Start: 03-17-2020 End: 09-03-2023 nicotine (NICODERM) 7 mg/24 hr Apply as directed q 24 HR. 0 03/17/2020 09/03/2023 Discontinued (Course of therapy completed) Start: 03-17-2020 apply 1 dose transde rmal route once daily Nicotine 7 MG/24HR Transdermal Patch 24 Hour APPLY 1 PATCH DAILY DIRECTED. Quantity: 60 Refills: 1 Hadley Gonzalez MD Start : 17-Mar-2020 Active Comment on above: Apply as directed q 24 HR. omega-3 fatty acids (FISH OIL CONCENTRATE ORAL) (1 source) omega-3 fatty ac ids (FISH OIL CONCENTRATE ORAL) Take by mouth. Active pantoprazole 20 mg delayed release oral tablet (4 sources) Proton Pump Inhibitor Start: 10-19-19 take 1 tablet by mouth once daily Protonix 20 mg Tab-DR 20 mg = 1 tab(s), Oral, Daily, # 30 tab(s), Refills(s) 0, Pharmacy: [facility], 182, cm, 10/18/23 6:32:00 EDT, Height/Length Dosing, 92, kg, 10/18/23 9:51:00 EDT, Weight Dosing Start Date: 10/19/23 Status: Ordered phenylephrine hydrochloride 25 mg/ml ophthalmic solution (1 source) alpha-1 Adrenergic Agonist Start: 12-11-19 End: 12-11-19 PHENYLephrine 2.5 % 1 Drop (AK-DILATE, GRICELDA-SYNEPHRINE) prednisoLONE acetate 10 mg/ml ophthalmic suspension (17 sources) Corticosteroid Start: 09-26-19 End: 10-22-19 prednisoLONE acetate (PRED FORTE) 1 % ophthalmic suspension Use 1 Drop in both eyes once daily. Start after surgery. 5 mL 5 10/22/2023 Active Start: 09-12-2023 End: 09-26-2023 prednisoLONE acetate (PRED F ORTE) 1 % ophthalmic suspension Use 1 Drop in the right eye four times daily. Start after surgery. 5 mL 2 09/12/2023 09/26/2023 Discontinued Start: 09-09-2023 prednisoLONE a cetate ophthalmic BID Start Date: 09/09/23 Status: Ordered Start: 08-17-2023 End: 09-03-2023 prednisoLONE acetate (PRED F ORTE) 1 % ophthalmic suspension Use 1 Drop in both eyes once daily. 5 mL 5 08/17/2023 09/03/2023 Discontinued (Course of therapy completed) Comment on above: Use 1 Drop in both e yes once daily. Use 1 Drop in the ri ght eye four times daily. Start after surgery. Use 1 Drop in both e yes once daily. Start after surgery. predniSONE 10 mg oral tablet (4 sources) Start: 05-02-2023 predniSONE 10 mg Tab = 1 -, Oral, As Directed, Take 3 tabs by mouth daily x3 days, then 2 tabs daily x3 days, then 1 tab daily x3 days., # 18 tab(s), Refills(s) 0, Pharmacy: [facility], 184, cm, 04/30/23 14:03:00 EDT, Height/Length Dosing, 107.9, kg, 04/30/23 14:03:00 EDT, Weight Dosing Start Date: 05/02/23 Status: Ordered Start: 04-20-2023 take 1 tablet by taylor th once daily predniSONE 20 mg Tab 20 mg = 1 tab(s), Oral, As Directed, take two tabs daily for 5 days, then one tab daily for 5 days., # 15 tab(s), Refills(s) 0, Pharmacy: [facility], 184, cm, 04/20/23 21:09:00 EDT, Height/Length Dosing, 107.9, kg, 04/20/23 21:09:00 EDT, Weight Dosing Start Date: 04/20/23 Status: Ordered [place] [address] mg powder for oral suspension (20 sources) Start: 09-04-2023 LOKELMA 10 gra m oral packet Start: 11-16-2021 End: 04-24-2022 Sodium Zirconium Cyclosilica te (Lokelma) 10 gram powder in packet Discontinued 10 GM PO Every morning November 16, 2021 12:00am April 24, 2022 3:21pm Start: 05-17-2021 take 1 dose by mouth once daily Lokelma 10 GM 1 packet dissolved in water Orally Once a day for 90 day(s) Apr, Active Trelegy Ellipta 100 mcg (6 sources) take 1 puff(s) by inhalation once daily Trelegy Ellipta 100 mcg 1 puff Inhalation Once a day Active tropicamide 10 mg/ml ophthalmic solution (1 source) Anticholinergic Start: 12-11-19 End: 12-11-19 tropicamide 1 % 1 Drop (MYDRIACYL) warfarin sodium 5 mg oral tablet (20 sources) Vitamin K Antagonist Start: 03-18-20 Warfarin Sodium 2.5 MG Oral Tablet as directed by pcp Dr. Al/clinic Quantity: 0 Refills: 0 Ordered: 18-Mar-2021 DO Start : 18-Mar-2021 Active Start: 06-24-2020 End: 06-26-2020 take 10 mg by mouth once daily Warfarin Discontinued 1 0 MG PO Daily June 24, 2020 1:00am June 26, 2020 3:08pm Start: 01-06-2020 take 1 tablet by taylor th once daily at bedtime warfarin (Coumadin) 2.5 mg tablet Take 1 tablet (2.5 mg) by mouth once daily at bedtime. Managed by [facility] 04/26/2020 Active Start: 04-28-2019 Warfarin Activ e 1.25 MG PO SUTUWETHFRSA April 28, 2019 12:00am Per [facility] note on 03/07- 1.25mg all days except Sunday, 0mg on Mondays Start: 04-28-2019 Warfarin Activ e 2.5 MG PO As Directed April 28, 2019 12:00am 2.5mg [id number] directed by [facility] Start: 04-29-2018 Coumadin 5 mg Tab 2.5 mg = 0.5 tab(s), Oral, MonWedFri, Refills(s) 0, Blood Thinner Start Date: 04/29/18 Status: Ordered Start: 04-29-2018 warfarin (COUM EDWIGE) 5 mg tablet Start: 11-09-2017 End: 09-03-2023 take 5 mg by mouth once daily warfarin (COUMADIN) 10 m g tablet Take 5 mg by mouth once daily. 0 11/09/2017 09/03/2023 Discontinued (Course of therapy completed) Comment on above: Take 5 mg by mouth o nce daily. Warfarin Warfarin Ac tive 5 MG Oral every Sunday, Sunday, and Sunday April 28, 2019 4:44pm as directed by [facility] 04-28-2019 [facility] ([id number]) Completed/Discontinued Medications Medication Drug Class(es) Dates Sig (Normalized) Sig (Original) acetaminophen 325 mg / HYDROcodone bitartrate 5 mg oral tablet (13 sources) Opioid Agonist Start: 04-26-2021 take 1 tablet by mouth every four to six hours as needed for pain HYDROcodone-Aceta minophen 5-325 MG Oral Tablet TAKE 1 TABLET EVERY 4 TO 6 HOURS NEEDED FOR PAIN. Quantity: 84 Refills: 0 Ordered: 26-Apr-2021 Lonnie Hardwick MD Start : 26-Apr-2021 Active Start: 06-30-2020 take 1 tablet by taylor th every four hours as needed for pain HYDROcodone-Acetaminophen 10-325 MG Oral Tablet TAKE 1 TABLET EVERY 4 HOURS NEEDED FOR PAIN. Quantity: 30 Refills: 0 Lonnie Hardwick MD Start : 30-Jun-2020 Active Start: 06-30-2019 Blanch 325 mg-5 mg oral tablet 1 tab(s), Oral, TID for pain, 15 tab(s), Refill(s) 0 Start Date: 06/30/19 Status: Ordered allopurinol 100 mg oral tablet (15 sources) Xanthine Oxidase Inhibitor Start: 03-07-2021 Allopurinol 100 MG Oral Tablet Quantity: 30 Refills: 0 Ordered: 07-Mar-2021 DO Start : 07-Mar-2021 Active Start: 03-07-2021 End: 11-16-2021 take 100 mg by mouth once daily Allopurinol Discontinued 100 MG PO Daily March 07, 2021 12:00am November 16, 2021 4:20pm amLODIPine 5 mg oral tablet (20 sources) Dihydropyridine Calcium Channel Ruba Start: 10-27-2016 End: 09-03-2023 take 1 tablet by mouth once daily amLODIPine (NORVASC) 5 mg tablet Take 1 tablet by mouth once daily. 0 11/09/2017 09/03/2023 Discontinued (Course of therapy completed) Start: 10-27-2016 amLODIPine Bes ylate 5 MG Oral Tablet Quantity: 30 Refills: 0 Ordered: 27-Oct-2016 DO Start : 27-Oct-2016 Active Comment on above: Take 1 tablet by taylor once daily. aspirin 81 mg delayed release oral tablet (12 sources) Platelet Aggregation Inhibitor, Nonsteroidal Anti-inflammatory Drug Start: 06-08-2022 take 1 tablet by mouth two times weekly Aspirin 81 MG Oral Tablet Delayed Release Take one tablet twice weekly Quantity: 24 Refills: 3 Ordered: 20-Nov-2022 Ethan RIVERA, Gunner Start : 08-Jun-2022 Active NEW START Start: 04-24-2022 End: 10-22-2023 take 81 mg by mouth once daily Aspirin Discontinued 81 MG PO Daily April 24, 2022 12:00am October 22, 2023 1:42pm Start: 06-26-2020 End: 03-06-2021 take 81 mg by mouth once daily Aspirin Discontinued 81 MG PO Daily June 26, 2020 1:00am March 06, 2021 6:40pm See your primary care provider or cardiology for refills Start: 05-03-2019 End: 06-12-2019 take 1 tablet by mouth once daily Aspirin (Aspir-81) 81 mg tablet,delayed release (DR/EC) Discontinued 81 MG PO Daily May 03, 2019 12:00am June 12, 2019 9:10am ceFAZolin 1000 mg injection (1 source) Cephalosporin Antibacterial Start: 04-24-2022 End: 10-22-2023 Cefazolin Discontinued 1 GM IV As Directed April 24, 2022 12:00am October 22, 2023 1:44pm Pharmacy to adjust for kidney function cephalexin 500 mg oral capsule (3 sources) Cephalosporin Antibacterial Start: 04-02-2020 End: 09-03-2023 take 1 capsule by mouth twice daily cephALEXin (KEFLEX) 500 mg capsule Take 500 mg by mouth twice daily. 0 04/02/2020 09/03/2023 Discontinued (Course of therapy completed) Comment on above: Take 500 mg by mouth twice daily. chlorhexidine gluconate 40 mg/ml medicated liquid soap (10 sources) Start: 01-18-2021 Hibiclens 4 % External Liquid Use as directed for preoperative shower. Quantity: 1 Refills: 0 Ordered: 18-Jan-2021 Den Rico HUTTON Start : 18-Jan-2021 Active Start: 03-16-2020 End: 09-03-2023 chlorhexidine (HIBICLENS) 4 % external liquid 118 mL. 0 03/16/2020 09/03/2023 Discontinued (Course of therapy completed) Comment on above: 118 mL. clindamycin 300 mg oral capsule (2 sources) Lincosamide Antibacterial Start: 06-30-20 take 1 capsule by mouth once daily Clindamycin HCl - 300 MG Oral Capsule TAKE 1 CAPSULE EVERY 6 HOURS DAILY. Quantity: 12 Refills: 0 Lonnie Hardwick MD Start : 30-Jun-2020 Active colestipol hydrochloride 1000 mg oral tablet (1 source) Bile Acid Sequestrant take 4 tablets by mouth once daily Colestid 1 GM Oral Tablet Take 4 tablets daily Quantity: 0 Refills: 0 Ordered: 27-Sep-2021 DO Active doxycycline hyclate 100 mg oral capsule (8 sources) Tetracycline-class Drug Start: 10-22-19 End: 10-23-19 take 100 mg by mouth every twelve hours Doxycycline Hyclate Discontinued 100 MG PO Every 12 hours October 22, 2023 12:00am October 23, 2023 11:32am Start: 04-20-2023 take 1 capsule by [facility] every twelve hours Doxycycline Hyclate 100 MG 1 capsule Orally every 12 hrs for 5 days Mar, Active furosemide 80 mg oral tablet (20 sources) Loop Diuretic Start: 04-24-2022 End: 10-22-2023 take 80 mg by mouth twice daily Furosemide Discontinued 80 MG PO BID@0800,1600 0 April 24, 2022 12:00am October 22, 2023 1:44pm Start: 03-07-2021 Furosemide 80 MG Oral Tablet Quantity: 60 Refills: 0 Ordered: 07-Mar-2021 DO Start : 07-Mar-2021 Active Start: 03-07-2021 End: 11-16-2021 take 2 tablets by mouth twice daily at mealtime Furosemide Discontinued 80 MG PO Daily 0 March 07, 2021 11:40am November 16, 2021 4:20pm take 2 tablets twice daily with food Start: 03-07-2021 End: 11-16-2021 take 1 tablet by mouth once daily Furosemide (Lasix) 80 mg tablet Discontinued 80 MG PO Daily 60 March 07, 2021 12:00am November 16, 2021 4:20pm take as instructed Start: 03-06-2021 End: 03-07-2021 take 2 tablets by mouth twice daily at mealtime Furosemide Discontinued 40 MG PO Twice daily March 06, 2021 12:00am March 07, 2021 11:41am take 2 tablets twice daily with food Start: 06-26-2020 End: 03-06-2021 Furosemide Discontinued 0 .R OUTE .COMPLEX 90 June 26, 2020 1:00am March 06, 2021 6:33pm 40mg daily in the AM and 20mg daily in the afternoon See your primary care provider or cardiology for refills Start: 06-18-2019 End: 06-26-2020 take 1 tablet by mouth once daily Furosemide (Lasix) 40 mg tablet Discontinued 40 MG PO Daily June 18, 2019 1:00am June 26, 2020 3:08pm Furosemide 40 MG Oral Tablet Quantity: 0 Refills: 0 Ordered: 23-Nov-2020 DO Active hydrALAZINE hydrochloride 50 mg / hydroCHLOROthiazide 50 mg oral capsule (15 sources) Thiazide Diuretic, Arteriolar Vasodilator Hydralazine-HCTZ 50- 50 MG CAPS Quantity: 0 Refills: 0 Ordered: 23-Nov-2020 DO Active HYDROmorphone hydrochloride 2 mg oral tablet (3 sources) Opioid Agonist Start: 2019 End: 2023 take 1 tablet by mouth every twelve hours as needed for pain HYDROmorphone (DILAUDID) 2 mg tablet TAKE 1 TABLET BY MOUTH EVERY 12 HOURS FOR 4 DAYS NEEDED FOR SEVERE PAIN 0 04/21/2020 09/03/2023 Discontinued (Course of therapy completed) Comment on above: TAKE 1 TABLET BY TAYLOR TH EVERY 12 HOURS FOR 4 DAYS NEEDED FOR SEVERE PAIN Loperamide (3 sources) Opioid Agonist Start: 2019 End: 2020 Loperamide (Imodium A-D) 1 mg/7.5 mL Liquid Discontinued 1 MG PO Q2H June 24, 2020 1:00am March 06, 2021 6:40pm Magnesium (1 source) take 1 tablet by mouth twice daily Magnesium 400 MG Oral Tablet Take 1 tablet twice daily Quantity: 180 Refills: 3 Ordered: 20-Nov-2022 DO Active meloxicam 15 mg oral tablet (3 sources) Nonsteroidal Anti-inflammatory Drug Start: 2020 take 1 tablet by mouth once daily Meloxicam 15 MG Oral Tablet TAKE 1 TABLET DAILY. Quantity: 14 Refills: 0 Ordered: 01-Apr-2021 Lonnie Hardwick MD Start : 01-Apr-2021 Active moxifloxacin 5 mg/ml ophthalmic solution (2 sources) Quinolone Antimicrobial Start: 2023 End: 2023 take 1 drop(s) into the eye(s) four times daily moxifloxacin (VIGAMOX) 0.5 % ophthalmic solution Use 1 Drop in the left eye four times daily. 3 mL 0 09/26/2023 10/03/2023 Discontinued Comment on above: Use 1 Drop in the le ft eye four times daily. omeprazole 20 mg delayed release oral capsule (3 sources) Proton Pump Inhibitor Start: 2021 End: 2021 take 40 mg by mouth twice daily Omeprazole Discontinued 40 MG PO Twice daily 360 90 November 20, 2021 12:00am December 30, 2021 2:15pm oxyCODONE hydrochloride 5 mg oral tablet (10 sources) Opioid Agonist Start: 2021 End: 2023 take 5 mg by mouth every six hours Oxycodone Discontinued 5 MG PO Q6H 10 April 24, 2022 October 22, 2023 1:49pm Start: 01-18-2022 End: 04-24-2022 take 10 mg by mouth every six hours Oxycodone Discontinued 10 MG PO Every 6 hours 40 January 18, 2022 April 24, 2022 3:21pm Start: 04-02-2020 End: 09-03-2023 take 5 mg by mouth every four hours Oxycodone Discontinued 5 MG PO Q4H 20 January 16, 2022 April 24, 2022 3:15pm Comment on above: Take 5 mg by mouth. patiromer 8400 mg powder for oral suspension (9 sources) Start: 01-14-2018 End: 06-25-2020 Patiromer Calcium Sorbitex (Veltassa) 8.4 gram powder in packet Discontinued 8.4 GM PO Daily June 12, 2019 9:13am June 25, 2020 4:23am sennosides, chcf 1.76 mg/ml oral solution (1 source) Start: 04-24-2022 End: 10-22-2023 take 17.6 mg by mouth at bedtime Sennosides (Senna) 8.8 mg/5 mL Syrup Discontinued 17.6 MG PO Bedtime 0 April 24, 2022 12:00am October 22, 2023 1:49pm sodium bicarbonate 650 mg oral tablet (20 sources) Start: 03-06-2021 End: 04-24-2022 take 650 mg by mouth twice daily Sodium Bicarbonate Discontinued 650 MG PO Twice daily March 06, 2021 12:00am April 24, 2022 3:21pm Start: 03-06-2021 take 650 mg by mouth three times daily Sodium Bicarbonate Active 650 MG PO Three times daily March 06, 2021 12:00am Start: 06-18-2019 End: 06-25-2020 take 1300 mg by mouth twice daily at mealtime Sodium Bicarbonate Discontinued 1300 MG PO Twice daily with meals 120 30 June 18, 2019 1:00am June 25, 2020 4:24am Start: 06-12-2019 End: 06-18-2019 take 650 mg by mouth twice daily at mealtime Sodium Bicarbonate Discontinued 650 MG PO Twice daily with meals June 12, 2019 9:13am June 18, 2019 10:59am Start: 05-03-2019 End: 06-12-2019 take 650 mg by mouth three times daily Sodium Bicarbonate Discontinued 650 MG PO Three times daily 90 May 03, 2019 12:00am June 12, 2019 9:13am Start: 11-23-2017 take 1 tablet by taylor th once daily sodium bicarbonate 650 MG tablet Take 1 tablet by mouth daily. 0 11/23/2017 Active sulfamethoxazole 800 mg / trimethoprim 160 mg oral tablet (7 sources) Dihydrofolate Reductase Inhibitor Antibacterial, Sulfonamide Antimicrobial Start: 04-22-2021 take 1 tablet by mouth twice daily Sulfamethoxazole-Trimethoprim 800-160 MG Oral Tablet TAKE 1 TABLET TWICE DAILY. Quantity: 10 Refills: 0 Ordered: 26-Apr-2021 Lonnie Hardwick MD Start : 22-Apr-2021 Active traMADol hydrochloride 50 mg oral tablet (1 source) Opioid Agonist Start: 02-04-2021 take 1 tablet by mouth every six hours as needed traMADol HCl - 50 MG Oral Tablet 1 tablet every 6 hours as needed Quantity: 20 Refills: 0 Ordered: 04-Feb-2021 Lonnie Hardwick MD Start : 04-Feb-2021 Active 30 actuat umeclidinium 0.0625 mg/actuat / vilanterol 0.025 mg/actuat dry powder inhaler (3 sources) Anticholinergic, beta2-Adrenergic Agonist Start: 10-20-2019 End: 09-03-2023 take 1 puff(s) by mouth once daily ANORO ELLIPTA 62.5-25 mcg/actuation inhaler INHALE 1 PUFF BY MOUTH ONCE DAILY 0 10/20/2019 09/03/2023 Discontinued (Course of therapy completed) Comment on above: INHALE 1 PUFF BY TAYLOR TH ONCE DAILY Vitamin B Complex (3 sources) Start: 06-24-2020 End: 11-16-2021 take 1 tablet by mouth once daily Vitamin B Complex Discontinued 1 TAB PO Daily June 24, 2020 1:00am November 16, 2021 4:25pm Vitamin D3 CAPS (5 sources) Vitamin D3 CAPS TAKE 1 CAPSULE Daily Quantity: 0 Refills: 0 Ordered: 08-Jun-2022 DO Active Problems Active Problems Problem Classification Problem Date Documented Date Episodic/Chronic Abdominal pain (14 sources) Abdominal pain; Translations: [Unspecified abdominal pain] Onset: 2 Resolved: 2 03-06-2021 Episodic Acute bronchitis (1 source) Acute bronchitis due to other specified organisms Episodic Acute cerebrovascular disease (20 sources) Cerebrovascular accident Onset: 2 10-03-2013 Chronic Acute myocardial infarction (2 sources) Non-ST elevation (NSTEMI) myocardial infarction; Translations: [Myocardial infarction] Onset: 2 04-13-2022 Chronic Bacterial infection; unspecified site (3 sources) Bacteremia; Translations: [Methicillin susceptible Staphylococcus aureus infection as the cause of diseases classified elsewhere] Onset: 2 09-12-2023 Episodic Biliary tract disease (2 sources) Postcholecystectomy syndrome; Translations: [Postcholecystectomy syndrome] Episodic Blindness and vision defects (1 source) Unspecified visual loss; Translations: [UNSPECIFIED VISUAL LOSS] Onset: 2 Chronic Cardiac dysrhythmias (20 sources) Atrial fibrillation; Translations: [Unspecified atrial fibrillation] Onset: 4 Chronic Cataract (20 sources) Senile combined form cataract of right eye; Translations: [Other and combined forms of senile cataract] Onset: 8 04-10-2018 Chronic Chronic kidney disease (20 sources) Chronic kidney disease stage 5; Translations: [Chronic kidney disease, Stage V] Onset: 6 Resolved: 4 Chronic Chronic kidney disease (1 source) Chronic kidney disease; Translations: [N18.6 - End stage renal disease] Onset: 2 Chronic obstructive pulmonary disease and bronchiectasis (20 sources) Chronic obstructive lung disease; Translations: [Chronic obstructive pulmonary disease, unspecified] Onset: 7 12-10-2014 Chronic Coagulation and hemorrhagic disorders (14 sources) Hereditary thrombophilia; Translations: [Other primary thrombophilia] Onset: 4 08-27-2023 Chronic Complications of surgical procedures or medical care (20 sources) Dehiscence of surgical wound; Translations: [Disruption of external operation (surgical) wound] Onset: 2 Episodic Congestive heart failure; nonhypertensive (20 sources) Chronic systolic heart failure; Translations: [Chronic systolic (congestive) heart failure] Onset: 0 Resolved: 4 06-16-2019 Chronic Coronary atherosclerosis and other heart disease (20 sources) Angina, class II; Translations: [Other and unspecified angina pectoris] Onset: 0 06-24-2020 Chronic Deficiency and other anemia (20 sources) Anemia of renal disease; Translations: [Anemia in chronic kidney disease] Chronic Deficiency and other anemia (8 sources) Anemia in chronic kidney disease; Translations: [Anemia of renal disease D63.1] Onset: 1 Resolved: 2 Chronic Deficiency and other anemia (1 source) Iron deficiency anemia secondary to blood loss (chronic); Translations: [IRON DEFIC ANEMIA SEC BLD LOSS CHRN] Onset: 2 Chronic Deficiency and other anemia (2 sources) Chronic anemia; Translations: [Anemia in other chronic diseases classified elsewhere] Onset: 6 Chronic Deficiency and other anemia (2 sources) Anemia due to chronic blood loss; Translations: [Iron deficiency anemia secondary to blood loss (chronic)] Chronic Deficiency and other anemia (2 sources) Iron deficiency anemia; Translations: [Iron deficiency anemia, unspecified] 11-18-2021 Episodic Deficiency and other anemia (3 sources) Anemia; Translations: [Anemia, unspecified] Episodic Deficiency and other anemia (1 source) Deficiency and other anemia; Translations: [D63.1 - Anemia in chronic kidney disease] Onset: 2 Diabetes mellitus with complications (20 sources) 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; Translations: [Diabetes with ophthalmic manifestations, type II or unspecified type, not stated as uncontrolled] Onset: 8 Resolved: 2 Chronic Diabetes mellitus without complication (11 sources) Type 2 diabetes mellitus; Translations: [Type 2 diabetes mellitus without complications] Onset: 8 09-03-2023 Chronic Disorders of lipid metabolism (20 sources) Hyperlipidemia; Translations: [Other and unspecified hyperlipidemia] Onset: 9 06-25-2020 Chronic Essential hypertension (20 sources) Hypertensive disorder; Translations: [Essential (primary) hypertension] Onset: 5 06-25-2020 Chronic Genitourinary symptoms and ill-defined conditions (5 sources) Presence of urogenital implants; Translations: [S/P insertion of penile implant] Chronic Hypertension with complications and secondary hypertension (20 sources) Chronic kidney disease due to hypertension; Translations: [Hypertensive chronic kidney disease with stage 1 through stage 4 chronic kidney disease, or unspecified chronic kidney disease] Onset: 8 Resolved: 4 Chronic Inflammation; infection of eye (except that caused by tuberculosis or sexually transmitteddisease) (3 sources) Unspecified interstitial keratitis, bilateral; Translations: [Interstitial keratitis, unspecified] 10-03-2023 Chronic Malaise and fatigue (2 sources) Chronic fatigue syndrome; Translations: [Chronic fatigue, unspecified] Chronic Mycoses (1 source) Onychomycosis; Translations: [Tinea unguium] 08-27-2023 Episodic Nonspecific chest pain (6 sources) Chest pain; Translations: [Chest pain, unspecified] Onset: 8 06-24-2020 Episodic Nutritional deficiencies (15 sources) Vitamin D deficiency; Translations: [Vitamin D deficiency, unspecified] Onset: 7 02-11-2020 Chronic Osteoarthritis (4 sources) Osteoarthritis of knee; Translations: [Bilateral primary osteoarthritis of knee] Chronic Other aftercare (10 sources) Drug therapy finding; Translations: [Long-term (current) use of anticoagulants] 04-29-2019 Episodic Other aftercare (2 sources) Drug monitoring done; Translations: [Encounter for therapeutic drug level monitoring] Episodic Other aftercare (5 sources) Long-term current use of drug therapy; Translations: [Other skilled nursing (current) drug therapy] Onset: 4 Episodic Other circulatory disease (20 sources) Acquired arteriovenous fistula aneurysm; Translations: [Arteriovenous fistula, acquired] Chronic Other circulatory disease (3 sources) History of cardiovascular surgery; Translations: [Presence of other vascular implants and grafts] 01-18-2022 Chronic Other circulatory disease (1 source) H/O: artificial organ/tissue; Translations: [Presence of other vascular implants and grafts] Chronic Other circulatory disease (1 source) Presence of other vascular implants and grafts; Translations: [Presence of other vascular implants and grafts] Onset: 2 Chronic Other circulatory disease (20 sources) H/O: hypertension; Translations: [Personal history of other diseases of circulatory system] Episodic Other circulatory disease (20 sources) History of cerebrovascular accident; Translations: [Personal history of transient ischemic attack (TIA), and cerebral infarction without residual deficits] Onset: 4 04-30-2023 Episodic Other circulatory disease (3 sources) History of cerebrovascular accident without residual deficits; Translations: [Personal history of transient ischemic attack (TIA), and cerebral infarction without residual deficits] 09-03-2023 Episodic Other circulatory disease (2 sources) Personal history of transient ischemic attack (TIA), and cerebral infarction without residual deficits; Translations: [Personal history of transient ischemic attack (TIA), and cerebral infarction without residual deficits] Onset: 4 Episodic Other congenital anomalies (17 sources) Congenital anomaly of spleen Onset: 0 12-20-2009 Chronic Other connective tissue disease (1 source) Musculoskeletal symptom; Translations: [Other symptoms and signs involving the musculoskeletal system] Episodic Other connective tissue disease (2 sources) Disorder of musculoskeletal system; Translations: [Other symptoms and signs involving the musculoskeletal system] Episodic Other connective tissue disease (1 source) Pain of toe of left foot; Translations: [Pain in left toe(s)] 08-27-2023 Episodic Other connective tissue disease (1 source) Pain of toe of right foot; Translations: [Pain in right toe(s)] 08-27-2023 Episodic Other diseases of bladder and urethra (20 sources) Urethral fistula; 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] Onset: 4 08-07-2023 Chronic Other diseases of kidney and ureters (20 sources) Secondary hyperparathyroidism; Translations: [Secondary hyperparathyroidism of renal origin] Chronic Other diseases of kidney and ureters (6 sources) Secondary hyperparathyroidism of renal origin; Translations: [Secondary hyperparathyroidism N25.81] Onset: 1 Resolved: 2 Chronic Other diseases of kidney and ureters (1 source) Disorder of kidney and/or ureter; Translations: [Disorder of kidney and ureter, unspecified] Onset: 3 Episodic Other diseases of veins and lymphatics (20 sources) Lymphedema; Translations: [Other lymphedema] Onset: 4 08-07-2023 Chronic Other diseases of veins and lymphatics (4 sources) Chronic peripheral venous hypertension; Translations: [Chronic venous hypertension (idiopathic) without complications of bilateral lower extremity] Chronic Other diseases of veins and lymphatics (1 source) Chronic venous hypertension (idiopathic) without complications of bilateral lower extremity Chronic Other diseases of veins and lymphatics (1 source) Chronic venous hypertension (idiopathic) with ulcer and inflammation of left lower extremity Chronic Other diseases of veins and lymphatics (1 source) Venous insufficiency of leg; Translations: [Venous insufficiency (chronic) (peripheral)] 10-20-2023 Episodic Other diseases of veins and lymphatics (1 source) Venous insufficiency (chronic) (peripheral); Translations: [Venous (peripheral) insufficiency, unspecified] 10-23-2023 Episodic Other endocrine disorders (20 sources) Disorder of adrenal gland; Translations: [Disorder of adrenal gland, unspecified] Onset: 1 08-27-2023 Chronic Other endocrine disorders (20 sources) Other specified disorders of adrenal gland; Translations: [Nodule of adrenal cortex (disorder)] Onset: 1 Resolved: 2 Chronic Other eye disorders (1 source) Corneal ulcer Episodic Other eye disorders (2 sources) Limbal stem cell deficiency; Translations: [Other corneal disorders] Episodic Other eye disorders (1 source) Red eye; Translations: [Other specified disorders of eye and adnexa] 09-26-2023 Episodic Other eye disorders (1 source) Pain of right eye; Translations: [Ocular pain, right eye] 09-26-2023 Episodic Other eye disorders (1 source) Ocular pain, right eye; Translations: [Pain of right eye] Onset: 4 Episodic Other eye disorders (1 source) Other specified disorders of eye and adnexa; Translations: [Eye redness] Onset: 4 Episodic Other liver diseases (11 sources) Portal hypertension; Translations: [Portal hypertension] Onset: 4 08-27-2023 Chronic Other liver diseases (1 source) Portal hypertension; Translations: [Portal hypertension (HCC)] Onset: 4 Chronic Other lower respiratory disease (2 sources) Chronic pulmonary edema; Translations: [Chronic pulmonary edema] Onset: 3 Chronic Other lower respiratory disease (20 sources) History of chronic obstructive airway disease; Translations: [Personal history of other diseases of respiratory system] Episodic Other lower respiratory disease (2 sources) Dyspnea, unspecified; Translations: [Dyspnea, unspecified] Onset: 4 Episodic Other male genital disorders (6 sources) Impotence; Translations: [Erectile dysfunction] Chronic Other male genital disorders (20 sources) Male erectile dysfunction, unspecified; Translations: [Erectile dysfunction] Onset: 0 02-11-2020 Chronic Other male genital disorders (1 source) Erectile dysfunction co-occurrent and due to arterial insufficiency; Translations: [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 dysfunction] 04-10-2023 Chronic Other male genital disorders (1 source) 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 dysfunction; Translations: [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 dysfunction] Onset: 0 Chronic Other nervous system disorders (13 sources) Chronic pain; Translations: [Other chronic pain] Onset: 7 02-11-2020 Chronic Other nervous system disorders (3 sources) Abnormal gait; Translations: [Unspecified abnormalities of gait and mobility] Episodic Other nutritional; endocrine; and metabolic disorders (20 sources) Body mass index 30+ - obesity; Translations: [Body Mass Index 32.0-32.9, adult] Onset: 4 08-31-2023 Chronic Other nutritional; endocrine; and metabolic disorders (20 sources) Obesity; Translations: [Obesity, unspecified] Onset: 4 04-29-2019 Chronic Other nutritional; endocrine; and metabolic disorders (2 sources) Obesity, unspecified; Translations: [Obesity, unspecified] Onset: 2 Chronic Other nutritional; endocrine; and metabolic disorders (1 source) Hypocalcemia; Translations: [HYPOCALCEMIA] Onset: 2 Chronic Other nutritional; endocrine; and metabolic disorders (2 sources) Hypocalcemia; Translations: [Hypocalcemia] Chronic Other nutritional; endocrine; and metabolic disorders (2 sources) Simple obesity ; Translations: [Other obesity due to excess calories] Onset: 6 Chronic Other nutritional; endocrine; and metabolic disorders (2 sources) Obese class II; Translations: [Body mass index (BMI) 39.0-39.9, adult] Onset: 6 Chronic Other nutritional; endocrine; and metabolic disorders (10 sources) Obesity caused by energy imbalance; Translations: [Other obesity due to excess calories] Onset: 4 Resolved: 4 04-30-2023 Chronic Other nutritional; endocrine; and metabolic disorders (2 sources) Body mass index (BMI) 34.0-34.9, adult; Translations: [Body mass index (BMI) 34.0-34.9, adult] Onset: 4 Chronic Other nutritional; endocrine; and metabolic disorders (1 source) Morbid (severe) obesity due to excess calories; Translations: [Morbid obesity (HCC)] Onset: 3 Chronic Other nutritional; endocrine; and metabolic disorders (20 sources) H/O: diabetes mellitus; Translations: [Personal history of other endocrine, metabolic, and immunity disorders] Episodic Other nutritional; endocrine; and metabolic disorders (4 sources) Overweight in adulthood with body mass index of 25 or more but less than 30; Translations: [Overweight] Episodic Other screening for suspected conditions (not mental disorders or infectious disease) (14 sources) Electrocardiogram abnormal; Translations: [Nonspecific abnormal electrocardiogram [ECG] [EKG]] Onset: 4 08-31-2023 Episodic Other skin disorders (20 sources) Hidradenitis; Translations: [Hidradenitis] Onset: 4 04-07-2019 Episodic Cesilia-; endo-; and myocarditis; cardiomyopathy (except that caused by tuberculosis or sexually transmitted disease) (20 sources) Dilated cardiomyopathy; Translations: [Dilated cardiomyopathy] Onset: 0 02-11-2020 Chronic Phlebitis; thrombophlebitis and thromboembolism (1 source) Chronic deep venous thrombosis of thigh; Translations: [Chronic embolism and thrombosis of unspecified deep veins of unspecified proximal lower extremity] 12-31-2023 Chronic Phlebitis; thrombophlebitis and thromboembolism (20 sources) Portal vein thrombosis; Translations: [H/O: Deep vein thrombosis] Onset: 2 Resolved: 4 04-29-2019 Episodic Pleurisy; pneumothorax; pulmonary collapse (7 sources) Pleural effusion, not elsewhere classified; Translations: [Pleural effusion] Onset: 2 Episodic Pulmonary heart disease (1 source) Other pulmonary embolism without acute cor pulmonale; Translations: [Other pulmonary embolism without acute cor pulmonale] Episodic Residual codes; unclassified (8 sources) Tobacco user; Translations: [Nicotine dependence, cigarettes, uncomplicated] Onset: 6 Chronic Residual codes; unclassified (15 sources) Obstructive sleep apnea syndrome; Translations: [Obstructive sleep apnea (adult) (pediatric)] Chronic Residual codes; unclassified (4 sources) Obstructive sleep apnea (adult) (pediatric) Chronic Residual codes; unclassified (2 sources) Presence of other specified functional implants; Translations: [Other postprocedural status] Onset: 3 04-10-2023 Chronic Residual codes; unclassified (13 sources) Sleep apnea; Translations: [Sleep apnea, unspecified] Onset: 5 07-18-2021 Chronic Residual codes; unclassified (20 sources) H/O: Disorder; Translations: [Personal history of other endocrine, metabolic, and immunity disorders] Episodic Residual codes; unclassified (1 source) Noncompliance with medication regimen; Translations: [Patient's other noncompliance with medication regimen for other reason] Onset: 4 Episodic Respiratory failure; insufficiency; arrest (adult) (1 source) Acute respiratory failure; Translations: [Acute respiratory failure with hypoxia] Onset: 4 Episodic Respiratory failure; insufficiency; arrest (adult) (2 sources) Respiratory failure; insufficiency; arrest (adult); Translations: [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, or end stage renal disease] Onset: 2 Retinal detachments; defects; vascular occlusion; and retinopathy (1 source) Bilateral epiretinal membrane of eyes; Translations: [Puckering of macula, bilateral] 10-03-2023 Chronic Rheumatoid arthritis and related disease (20 sources) Rheumatoid arthritis; Translations: [Inflammatory polyarthropathy] Onset: 4 02-25-2015 Chronic Septicemia (except in labor) (2 sources) Sepsis due to Methicillin susceptible Staphylococcus aureus; Translations: [Sepsis due to Staphylococcus aureus] Onset: 2 09-12-2023 Episodic Spondylosis; intervertebral disc disorders; other back problems (2 sources) Lumbosacral spondylosis without myelopathy; Translations: [Spondylosis without myelopathy or radiculopathy, lumbar region] Chronic Substance-related disorders (20 sources) Smokes tobacco daily; Translations: [Tobacco use disorder] Onset: 6 06-23-2020 Chronic Comment on above: Added secondary to d ocumentation in Social History. pack 1 every four da ys.; Superficial injury; contusion (2 sources) Abrasion of left cornea; Translations: [Injury of conjunctiva and corneal abrasion without foreign body, left eye, initial encounter] Onset: 4 09-26-2023 Episodic Transient cerebral ischemia (20 sources) Transient cerebral ischemia; Translations: [Unspecified transient cerebral ischemia] Onset: 4 08-07-2023 Chronic Unclassified (17 sources) Anticoagulant effect 04-07-2019 Unclassified (1 source) Generalized edema; Translations: [Generalized edema] Onset: 2 Unclassified (1 source) Z99.2 - Dependence on renal dialysis; Translations: [Z99.2 - Dependence on renal dialysis] Onset: 2 Unclassified (1 source) Z01.812 - Encounter for preprocedural laboratory examination; Translations: [Z01.812 - Encounter for preprocedural laboratory examination] Onset: 2 Unclassified (1 source) E87.5 - Hyperkalemia; Translations: [E87.5 - Hyperkalemia] Onset: 2 Unclassified (1 source) CONTACT W/AND (SUSP) EXPOS COVID-19; Translations: [CONTACT W/AND (SUSP) EXPOS COVID-19] Onset: 2 Unclassified (1 source) Chronic atrial fibrillation, unspecified; Translations: [Chronic atrial fibrillation, unspecified (HCC)] Onset: 4 Viral infection (1 source) Other viral infections of unspecified site Episodic Past or Other Problems Problem Classification Problem Date Documented Da te Episodic/Chronic Acute and unspecified renal failure (17 sources) Acute renal failure syndrome; Translations: [Acute kidney failure, unspecified] Onset: 03-08-2015 Resolved: 12-31-2023 04-30-2019 Episodic Allergic reactions (2 sources) Inflammatory dermatosis; Translations: [Dermatitis, unspecified] Onset: 10-23-2018 08-07-2023 Episodic Blindness and vision defects (10 sources) Bilateral irregular astigmatism of eyes; Translations: [Irregular astigmatism] Onset: 05-07-2018 08-07-2023 Episodic Calculus of urinary tract (11 sources) H/O: urinary stone; Translations: [Personal history of urinary calculi] Onset: 03-21-2019 02-11-2020 Episodic Complication of device; implant or graft (20 sources) Penile prosthesis infection; Translations: [Infection and inflammatory reaction due to other genitourinary device, implant, and graft] Onset: 08-07-2023 Episodic Deficiency and other anemia (3 sources) Iron deficiency anemia, unspecified; Translations: [Iron deficiency anemia, unspecified] Onset: 11-16-2021 11-20-2021 Episodic Deficiency and other anemia (1 source) Anemia, unspecified; Translations: [ANEMIA UNSPECIFIED] Onset: 02-13-2022 Episodic Diabetes mellitus without complication (2 sources) Impaired fasting glycemia; Translations: [Impaired fasting glucose] Onset: 08-23-2015 Episodic E Codes: Fall (9 sources) Fall; Translations: [Unspecified fall] Onset: 08-07-2023 Episodic Fluid and electrolyte disorders (20 sources) Hyperkalemia; Translations: [Hyperpotassemia] Onset: 05-29-2018 Resolved: 03-06-2022 Episodic Gastrointestinal hemorrhage (2 sources) Hematemesis; Translations: [Gastrointestinal hemorrhage, unspecified] Onset: 12-06-2021 Episodic Genitourinary symptoms and ill-defined conditions (20 sources) Retention of urine; Translations: [Blood in urine] Onset: 05-17-2021 Resolved: 03-06-2022 Episodic Inflammation; infection of eye (except that caused by tuberculosis or sexually transmitteddisease) (11 sources) Iridocyclitis; Translations: [Unspecified iridocyclitis] Onset: 04-02-2018 02-11-2020 Episodic Intestinal infection (17 sources) Bacterial intestinal infectious disease; Translations: [Other specified bacterial intestinal infections] Onset: 07-14-2019 02-11-2020 Episodic Malaise and fatigue (1 source) Weakness; Translations: [WEAKNESS] Onset: 02-13-2022 Episodic Neoplasms of unspecified nature or uncertain behavior (2 sources) Neoplasm of uncertain behavior of skin; Translations: [Neoplasm of uncertain behavior of skin] Onset: 10-23-2018 08-07-2023 Episodic Noninfectious gastroenteritis (1 source) Noninfective gastroenteritis and colitis, unspecified; Translations: [NONINFECTIVE GE AND COLITIS UNS] Onset: 02-13-2022 Episodic Other aftercare (4 sources) MCFP (current) use of anticoagulants; Translations: [Long-term (current) use of anticoagulants] Onset: 11-16-2021 11-20-2021 Episodic Other aftercare (13 sources) Long-term current use of anticoagulant; Translations: [MCFP (current) use of anticoagulants] Onset: 09-22-2019 Episodic Other aftercare (1 source) Other meterman (current) drug therapy; Translations: [OTH FPC CURRENT DRUG THERAPY] Onset: 04-17-2022 Episodic Other aftercare (12 sources) Patient encounter status; Translations: [Encounter for therapeutic drug level monitoring] Onset: 03-08-2015 07-18-2021 Episodic Other and ill-defined heart disease (2 sources) Heart disease; Translations: [Heart disease, unspecified] Resolved: 09-06-2021 Chronic Other circulatory disease (18 sources) History of transient ischemic attack; Translations: [Personal history of transient ischemic attack (TIA), and cerebral infarction without residual deficits] Onset: 03-02-2015 Resolved: 12-31-2023 Episodic Other diseases of kidney and ureters (6 sources) Disorder of kidney and ureter, unspecified; Translations: [Kidney lesion N28.9] Onset: 05-17-2021 Resolved: 03-06-2022 Episodic Other ear and sense organ disorders (2 sources) Otitis externa of left ear; Translations: [Other otitis externa, left ear] Resolved: 07-12-2022 Chronic Other eye disorders (2 sources) Unspecified corneal ulcer, unspecified eye; Translations: [Unspecified corneal ulcer, unspecified eye] Onset: 03-06-2018 Episodic Other eye disorders (8 sources) Peripheral opacity of cornea, bilateral; Translations: [Peripheral opacity of both corneas] Onset: 08-07-2023 08-07-2023 Episodic Other eye disorders (8 sources) Tear film insufficiency; Translations: [Tear film insufficiency, unspecified] Onset: 08-07-2023 08-07-2023 Episodic Other eye disorders (6 sources) Other specified disorders of cornea, bilateral; Translations: [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] Onset: 08-07-2023 08-07-2023 Episodic Other eye disorders (15 sources) Corneal thinning; Translations: [Other specified disorders of cornea, bilateral] Onset: 01-17-2018 Resolved: 01-14-2020 02-06-2018 Episodic Other gastrointestinal disorders (2 sources) Diarrhea; Translations: [Diarrhea, unspecified] Resolved: 08-04-2020 Episodic Other hematologic conditions (1 source) Other specified abnormalities of plasma proteins; Translations: [Other specified abnormalities of plasma proteins] Onset: 04-13-2022 Episodic Other lower respiratory disease (20 sources) Dyspnea; Translations: [Shortness of breath] Onset: 03-03-2016 02-11-2020 Episodic Other lower respiratory disease (2 sources) Hypoxemia; Translations: [Hypoxemia] Onset: 07-06-2016 Episodic Other nervous system disorders (20 sources) Postoperative pain ; Translations: [Other acute postoperative pain] Onset: 03-04-2015 Resolved: 02-11-2020 07-18-2021 Episodic Other nutritional; endocrine; and metabolic disorders (16 sources) Morbid obesity; Translations: [Morbid (severe) obesity due to excess calories] Onset: 08-23-2015 Resolved: 12-31-2023 04-10-2023 Chronic Other skin disorders (1 source) Change in skin lesion; Translations: [Anemia in chronic kidney disease] Onset: 02-21-2022 Episodic Other skin disorders (16 sources) Hidradenitis suppurativa; Translations: [Hidradenitis suppurativa] Onset: 11-18-2012 04-10-2023 Episodic Other skin disorders (1 source) Hidradenitis suppurativa; Translations: [Hidradenitis suppurativa] Onset: 07-19-2021 Episodic Residual codes; unclassified (20 sources) Tobacco user; Translations: [Tobacco use disorder] Onset: 11-19-2013 04-10-2023 Episodic Residual codes; unclassified (1 source) Generalized edema; Translations: [GENERALIZED EDEMA] Onset: 04-17-2022 Episodic Residual codes; unclassified (1 source) Acquired absence of other specified parts of digestive tract; Translations: [ACQ ABSENCE OTH PART DIGESTV TRACT] Onset: 02-13-2022 Episodic Residual codes; unclassified (13 sources) Disorder of digestive tract; Translations: [Acquired absence of other specified parts of digestive tract] Onset: 04-02-2018 02-11-2020 Episodic Residual codes; unclassified (1 source) Tobacco use; Translations: [Tobacco abuse] Onset: 07-19-2021 Episodic Screening and history of mental health and substance abuse codes (16 sources) Ex-smoker; Translations: [Personal history of tobacco use] Onset: 09-22-2019 02-11-2020 Episodic Comment on above: QUIT SMOKING 022; Skin and subcutaneous tissue infections (20 sources) Abscess of groin; Translations: [Cellulitis and abscess of trunk] Onset: 11-06-2018 08-07-2023 Episodic Spondylosis; intervertebral disc disorders; other back problems (13 sources) Low back pain; Translations: [Low back pain] Onset: 09-18-2019 02-11-2020 Episodic Unclassified (6 sources) Patient encounter status; Translations: [Preoperative cardiovascular examination] Unclassified (2 sources) Exposure to 2018 novel coronavirus; Translations: [Contact with and (suspected) exposure to COVID19] Unclassified (17 sources) Blood clot (morphologic abnormality) 04-11-2019 Unclassified (17 sources) Methicillin resistant Staphylococcus aureus (organism) Onset: 09-08-2011 04-11-2019 Comment on above: MRSA urine 10/14/2011 MRSA in blood cultur es x 2 on 09/08/11 Unclassified (4 sources) Permanent atrial fibrillation Unclassified (2 sources) Onset: 08-31-2023 08-31-2023 Urinary tract infections (20 sources) Urinary tract infectious disease; Translations: [Urinary tract infection, site not specified] Onset: 08-07-2023 08-07-2023 Episodic NEGATED: Highlighted row has not occurred!Residual codes; unclassified (20 sources) Disease Episodic Results Test Name Value Interpretation Reference Range Facility PTH [place] 03-18-2024 Parathyrin.intact [Mass/Vol] 469 pg/mL High [facility] Comment on above: Result Comment: Perf ormed at: [facility] [address] [id number] PhD Peerz Mccall Performed By: #### 1 [id number] #### [facility] [address] [place] [id number] CHEMISTRYOrdered By: SYSTEM SYSTEM on 03-17-2024 25-hydroxyvitamin D3 [Mass/Vol] 105.0 ng/mL High 30.0 - 100.0 ng/mL Remisol Chem Albumin [Mass/Vol] 3.7 g/dL Normal 3.3 - 5.0 gm/dL Remisol Chem Anion gap [Moles/Vol] 15 mmol/L Normal 6 - 16 mEq/L Remisol Chem Calcium [Mass/Vol] 7.8 mg/dL Low 8.9 - 11. 1 mg/dL Remisol Chem Chloride [Moles/Vol] 104 mmol/L Normal 101 - 1 11 mmol/L Remisol Chem CO2 [Moles/Vol] 23 mmol/L Normal 21 - 31 mmol/L Remisol Chem Creatinine [Mass/Vol] 4.4 mg/dL High 0.5 - 1.3 mg/dL Remisol Chem eGFR 14 mL/min/1.73 m2 Low >=59mL/min / 1.73 m2 Remisol Chem Glucose [Mass/Vol] 89 mg/dL Normal 55 - 199 mg/dL Remisol Chem Phosphate [Mass/Vol] 4.2 mg/dL Normal 1.9 - 4 .6 mg/dL Remisol Chem Potassium [Moles/Vol] 4.1 mmol/L Normal 3.5 - 5.3 mmol/L Remisol Chem Sodium [Moles/Vol] 138 mmol/L Normal 135 - 145 mmol/L Remisol Chem Urea nitrogen [Mass/Vol] 64 mg/dL High 5 - 21 mg/dL Remisol Chem Urea nitrogen/Creatinine [Mass ratio] 14 mg/mg Normal 10 - 20 Remisol Chem Protein/Creatinine (U) [Ratio] 264.90 mg/gm Cr High 0.00 - 200.00 mg/gm Cr Remisol Chem U Creatinine 83.4 mg/dL Invalid Interpretation Code Remisol Chem Ur Total Protein 220.9 mg/dL Invalid Interpretation Code Remisol Chem Renal Panelon 03-17-2024 Phosphate [Mass/Vol] 4.2 mg/dL Normal 1.9-4.6 [facility] Comment on above: Performed By: #### 1 [id number] #### [facility] [address] [place] [address] Albumin [Mass/Vol] 3.7 g/dL Normal 3.3-5.0 [facility] Comment on above: Performed By: #### 1 [id number] #### [facility] [address] [place] [address] Anion gap [Moles/Vol] 15 mmol/L Normal 6-16 [facility] Comment on above: Performed By: #### 1 [id number] #### [facility] [address] [place] [address] Calcium [Mass/Vol] 7.8 mg/dL Low 8.9-11.1 [facility] Comment on above: Performed By: #### 1 [id number] #### [facility] [address] [place] [address] Chloride [Moles/Vol] 104 mmol/L Normal 101-111 [facility] Comment on above: Performed By: #### 1 [id number] #### [facility] [facility] [address] [place] [address] CO2 [Moles/Vol] 23 mmol/L Normal 21-31 [facility] Comment on above: Performed By: #### 1 [id number] #### [facility] [address] [place] [address] Creatinine [Mass/Vol] 4.4 mg/dL High 0.5-1.3 [facility] Comment on above: Performed By: #### 1 [id number] #### [facility] [address] [place] [address] Glucose [Mass/Vol] 89 mg/dL Normal 55-199 [facility] Comment on above: Performed By: #### 1 [id number] #### [facility] [address] [place] [address] Potassium [Moles/Vol] 4.1 mmol/L Normal 3.5-5.3 [facility] Comment on above: Performed By: #### 1 [id number] #### [facility] [address] [place] [address] Sodium [Moles/Vol] 138 mmol/L Normal 135-145 [facility] Comment on above: Performed By: #### 1 [id number] #### [facility] [address] [place] [address] Urea nitrogen [Mass/Vol] 64 mg/dL High 5-21 [facility] Comment on above: Performed By: #### 1 [id number] #### [facility] [address] [place] [address] Urea nitrogen/Creatinine [Mass ratio] 14 No Units Normal 10-20 [facility] Comment on above: Performed By: #### 1 [id number] #### [facility] [address] [place] [address] U Protein/Creat Ratioon 02-21 U Creatinine 83.4 mg/dL Invalid Interpretation Code [facility] Comment on above: Performed By: #### 1 [id number] #### [facility] [address] [place] [address] Protein/Creatinine (U) [Ratio] 264.90 mg/gm Cr High .00-200.00 [facility] Comment on above: Performed By: #### 1 [id number] #### [facility] [address] [place] [address] Ur Total Protein 220.9 mg/dL Invalid Interpretation Code [facility] Comment on above: Performed By: #### 1 [id number] #### [facility] [address] [place] [address] URINALYSISOrdered By: SYSTEM SYSTEM on 03-17-2024 Bilirubin Ql (U) Negative Normal Negativemg/ dL [facility] UA Auto SS Clarity (U) Clear (03/17/24 7:58 AM) Normal Clear [facility] UA Auto SS Color (U) Light-Yellow 1 (03/17/24 7:58 AM) Normal Yellow [facility]A Auto SS Comment on above: Interpretive Data: M icroscopic readings are only performed on those samples that meet specific criteria set forth by [facility]. Glucose Ql (U) Negative Normal Negativemg/ dL [facility] UA Auto SS Hemoglobin Auto test strip (U) [Mass/Vol] 1+ mg/dL Invalid Interpretation Code Negativemg/ dL FT UA Auto SS Ketones Auto test strip Ql (U) Negative Normal Negativemg/ dL FT UA Auto SS Leukocyte esterase Auto test strip Ql (U) Negative Normal NegativeLeu /uL FT UA Auto SS Mucus Auto Ql (U) Negative Normal Negativegr a ded/LPF FT UA Auto SS Nitrite Auto test strip Ql (U) Negative Normal Negativemg/ dL [facility] UA Auto SS pH (U) 6.0 *NA* (03/17/24 7:58 AM) Invalid Interpretation Code 5.0 - 9.0 [facility] UA Auto SS Protein Ql (U) 2+ mg/dL Invalid Interpretation Code Negativemg/ dL [facility] UA Auto SS RBC Ql (U) 4-20 graded/HPF Invalid Interpretation Code 0-3graded/H PF [facility] UA Auto SS Specific gravity (U) [Rel density] 1.013 *NA* (03/17/24 7:58 AM) Invalid Interpretation Code 1.005 - 1.030 [facility] UA Auto SS Urobilinogen (U) [Mass/Vol] Negative Normal Negativemg/ dL [facility] UA Auto SS WBC Auto (Urine sed) [#/Area] 0-5 graded/HPF Normal 0-5graded/H PF [facility] UA Auto SS URINALYSISOrdered By: Jasmyn Leone on 03-17-2024 UA Spec Desc Clean Catch (03/17/24 7:58 AM) Normal [facility] UA Auto SS Urinalysis with Microon 02-21 Bilirubin Ql (U) Negative Normal Negative [facility] Comment on above: Performed By: #### 4 [id number] #### [facility] [address] [place] [address] Clarity (U) Clear Normal Clear [facility] Comment on above: Performed By: #### 4 [id number] #### [facility] [address] [place] [address] Color (U) Light-Yellow Normal Yellow [facility] Comment on above: Result Comment: Micr oscopic readings are only performed on those samples that meet specific criteria set forth by [facility]. Performed By: #### 4 [id number] #### [facility] [address] [place] [address] Glucose Ql (U) Negative Normal Negative [facility] Comment on above: Performed By: #### 4 [id number] #### [facility] [address] [place] [address] Hemoglobin Auto test strip (U) [Mass/Vol] 1+ mg/dL Abnormal Negative [facility] Comment on above: Performed By: #### 4 [id number] #### [facility] [address] [place] [address] Ketones Auto test strip Ql (U) Negative Normal Negative [facility] Comment on above: Performed By: #### 4 [id number] #### [facility] [address] [place] [address] Leukocyte esterase Auto test strip Ql (U) Negative Normal Negative [facility] Comment on above: Performed By: #### 4 [id number] #### [facility] [address] [place] [address] Mucus Auto Ql (U) Negative Normal Negative [facility] Comment on above: Performed By: #### 4 [id number] #### [facility] [address] [place] [address] Nitrite Auto test strip Ql (U) Negative Normal Negative [facility] Comment on above: Performed By: #### 4 [id number] #### [facility] [address] [place] [address] pH (U) 6.0 [pH] Invalid Interpretation Code 5.0-9.0 [facility] Comment on above: Performed By: #### 4 [id number] #### [facility] [address] [place] [address] Protein Ql (U) 2+ mg/dL Abnormal Negative [facility] Comment on above: Performed By: #### 4 [id number] #### [facility] [address] [place] [address] RBC Ql (U) 4-20 Abnormal 0-3 [facility] Comment on above: Performed By: #### 4 [id number] #### [facility] [address] [place] [address] Specific gravity (U) [Rel density] 1.013 Invalid Interpretation Code 1.005-1.030 [facility] Comment on above: Performed By: #### 4 [id number] #### [facility] [address] [place] [address] Urobilinogen (U) [Mass/Vol] Negative Normal Negative [facility] Comment on above: Performed By: #### 4 [id number] #### [facility] [address] [place] [address] WBC Auto (Urine sed) [#/Area] 0-5 Normal 0-5 [facility] Comment on above: Performed By: #### 4 [id number] #### [facility] [address] [place] [address] Type of Urine collection method Clean Catch Normal [facility] Comment on above: Performed By: #### 4 [id number] #### [facility] [address] [place] [address] Vitamin D 25 Hydroxyon 03-17 25-hydroxyvitamin D3 [Mass/Vol] 105.0 ng/mL High 30.0-100.0 [facility] Comment on above: Performed By: #### 5 [id number] #### [facility] [address] [place] [address] eGFRon 03-17-2024 eGFR 14 mL/min/1.73 m2 Low >=59 [facility] Comment on above: Order Comment: Order added by Discern Expert. Performed By: #### 1 [id number] #### [facility] [address] [place] [address] OCT MACULA CIRRUS OU (BOTH E YES)on 12-11-2023 [facility] Radiology Study observation (narrative) [facility] PTH Intacton 12-04-2023 Parathyrin.intact [Mass/Vol] 234 pg/mL High 15-65 [facility] Comment on above: Result Comment: Perf ormed at: [facility] [address] [id number] PhD Perez Mccall Performed By: #### 1 [id number] ####[facility] [address] [place] [address] CHEMISTRYOrdered By: SYSTEM SYSTEM on 12-03-2023 Potassium [Moles/Vol] 5.6 mmol/L High 3.5 - 5.3 mmol/L [facility] 25-hydroxyvitamin D3 [Mass/Vol] 52.9 ng/mL Normal 30.0 - 100.0 ng/mL [facility] Albumin [Mass/Vol] 3.6 g/dL Normal 3.3 - 5.0 gm/dL [facility] Anion gap [Moles/Vol] 11 mmol/L Normal 6 - 16 mEq/L [facility] Calcium [Mass/Vol] 8.7 mg/dL Low 8.9 - 11. 1 mg/dL [facility] Chloride [Moles/Vol] 106 mmol/L Normal 101 - 1 11 mmol/L [facility] CO2 [Moles/Vol] 26 mmol/L Normal 21 - 31 mmol/L [facility] Creatinine [Mass/Vol] 4.1 mg/dL High 0.5 - 1.3 mg/dL [facility] eGFR 16 mL/min/1.73 m2 Low >=59mL/min / 1.73 m2 [facility] Glucose [Mass/Vol] 166 mg/dL Normal 55 - 199 mg/dL [facility] Phosphate [Mass/Vol] 4.1 mg/dL Normal 1.9 - 4 .6 mg/dL [facility] Sodium [Moles/Vol] 137 mmol/L Normal 135 - 145 mmol/L [facility] Urea nitrogen [Mass/Vol] 56 mg/dL High 5 - 21 mg/dL [facility] Urea nitrogen/Creatinine [Mass ratio] 14 mg/mg Normal 10 - 20 [facility] Protein/Creatinine (U) [Ratio] 361.20 mg/gm Cr High 0.00 - 200.00 mg/gm Cr [facility] U Creatinine 87.7 mg/dL Invalid Interpretation Code [facility] Ur Total Protein 316.8 mg/dL Invalid Interpretation Code [facility] CHEMISTRYOrdered By: Leon Kim on 12-03-2023 Potassium [Moles/Vol] see comment Invalid Interpretation Code 3.5 - 5.3 [facility] Chem S Comment on above: Result Comment: hemo lyzed specimen, patient to be redrawn Consent for Treatmenton 11-20 Consent for Treatment [id number]#1.00TIFF Normal [facility] HEMATOLOGYOrdered By: SYSTEM SYSTEM on 12-03-2023 Hematocrit (Bld) [Volume fraction] 40.7 % Normal 37.7 - 49.0 % [facility] Heme Hemoglobin (Bld) [Mass/Vol] 13.3 g/dL Low 13.5 - 17.5 gm/dL [facility] Heme Hct & Hgbon 12-03-2023 Hematocrit (Bld) [Volume fraction] 40.7 % Normal 37.7-49.0 [facility] Comment on above: Performed By: #### 1 [id number], [id number], [id number], [id number] ####[facility] [address] [place] [address] Hemoglobin (Bld) [Mass/Vol] 13.3 g/dL Low 13.5-17.5 [facility] Comment on above: Performed By: #### 1 [id number], [id number], [id number], [id number] ####[address] [place] [address] Physician Orderon 12-03-2023 Physician Order [id number]#1.00TIFF Normal [facility] Potassiumon 12-03-2023 Potassium [Moles/Vol] 5.6 mmol/L High 3.5-5.3 [facility] Comment on above: Performed By: #### 2 [id number] ####[facility] [address] [place] [address] Renal Panelon 12-03-2023 Potassium [Moles/Vol] see comment Invalid Interpretation Code 3.5-5.3 [facility] Comment on above: Result Comment: hemo lyzed specimen, patient to be redrawn Performed By: #### 1 [id number], [id number], [id number], [id number] ####[facility] [address] [place] [address] Albumin [Mass/Vol] 3.6 g/dL Normal 3.3-5.0 [facility] Comment on above: Performed By: #### 1 [id number], [id number], [id number], [id number] ####[facility] [address] [place] [address] Anion gap [Moles/Vol] 11 mmol/L Normal 6-16 [facility] Comment on above: Performed By: #### 1 [id number], [id number], [id number], [id number] ####[facility] [address] [place] [address] Calcium [Mass/Vol] 8.7 mg/dL Low 8.9-11.1 [facility] Comment on above: Performed By: #### 1 [id number], [id number], [id number], [id number] ####[facility] [address] [place] [address] Chloride [Moles/Vol] 106 mmol/L Normal 101-111 [facility] Comment on above: Performed By: #### 1 [id number], 85568096, [id number], [id number] ####[facility] [address] [address] CO2 [Moles/Vol] 26 mmol/L Normal 21-31 [facility] Comment on above: Performed By: #### 1 [id number], 44578889, [id number], [id number] ####[facility] [address] [address] Creatinine [Mass/Vol] 4.1 mg/dL High 0.5-1.3 [facility] Comment on above: Performed By: #### 1 [id number], [id number], [id number], [id number] ####[facility] [address] [place] [address] Glucose [Mass/Vol] 166 mg/dL Normal 55-199 [facility] Comment on above: Performed By: #### 1 [id number], 10892938, [id number], [id number] ####[facility] [address] [place] [address] Phosphate [Mass/Vol] 4.1 mg/dL Normal 1.9-4.6 [facility] Comment on above: Performed By: #### 1 [id number], 28889090, [id number], 84609061 ####[facility] [address] [place] [address] Sodium [Moles/Vol] 137 mmol/L Normal 135-145 [facility] Comment on above: Performed By: #### 1 [id number], [id number], 034381386, [id number] ####[facility] [address] [facility] [place] [place] [address] Urea nitrogen [Mass/Vol] 56 mg/dL High 5-21 [facility] Comment on above: Performed By: #### 1 [id number], 88048414, [id number], [id number] ####[facility] [address] [place] [address] Urea nitrogen/Creatinine [Mass ratio] 14 No Units Normal 10-20 [facility] Comment on above: Performed By: #### 1 [id number], 04098190, [id number], 54323277 ####[facility] [address] [facility] [place] [address] U Protein/Creat Ratioon 11-20 Protein/Creatinine (U) [Ratio] 361.20 mg/gm Cr High .00-200.00 [facility] Comment on above: Performed By: #### 1 [id number] ####[facility] [address] [facility] [place] [place] [address] U Creatinine 87.7 mg/dL Invalid Interpretation Code [facility] Comment on above: Performed By: #### 1 [id number] ####[facility] [address] [facility] [place] [place] [address] Ur Total Protein 316.8 mg/dL Invalid Interpretation Code [facility] Comment on above: Performed By: #### 1 [id number] ####[facility] [address] [facility] [place] [address] Vitamin D 25 Hydroxyon 12-02 25-hydroxyvitamin D3 [Mass/Vol] 52.9 ng/mL Normal 30.0-100.0 [facility] Comment on above: Performed By: #### 1 [id number], 13558584, [id number], 80571339 ####[facility] [address] [place] [address] eGFRon 12-03-2023 eGFR 16 mL/min/1.73 m2 Low >=59 [facility] Comment on above: Order Comment: Order added by Discern Expert. Performed By: #### 1 [id number], [id number], [id number], [id number] ####[facility] [address] [place] [address] CNPNon 11-12-2023 CNPN Telephone (OPHTMN) ----- HIEN JOHNSON ([id number]) 1960 M [place]* Date Time Provider Department 11/12/23 PATRICE CASTAÑEDA During your visit today, we recorded the following information about you: Khushi Mc 11/12/2023 1:19 PM Signed Patient is calling stating he needs a letter when and why he was out of work, when he is able to return, and whether or not there are any restrictions. Patient needs the letter to be sent to the following fax number, attn: Kalpana [phone]. Patient can be contacted at the following number, . 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 I have seen and examined Hien Johnson. I have discussed the case and the management of this patient's care with the Resident/Fellow, if applicable. I also have reviewed and agree with the assessment and plan as stated above and agree with all of its relevant components. MD Alexandro Tinsley Danita 11/15/2023 10:24 AM Signed Contacted Kalpana to verify the fax number for the last couple faxes did not go through. Kalpana gave me the correct number and faxed the letter to her office. Confirmation has been received and the original has been mailed to the patient. No other questions or concerns at this time. You SeePatrice MD 17 hours ago (4:45 PM) DJ Yes this was done, however, the number given to fax is not going through. I am trying to contact Kalpana again to see if there is another number to fax the letter to. SeePatrice MD You 23 hours ago (10:58 AM) Was this already addressed by the letter in the chart? 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 Start after surgery. - Ferrous Gluconate (FERGON) 324 mg (38 mg iron) tablet Take by mouth every 24 hours. - gfegxsfvpqh-ugidkctre-xdp anter (TRELEGY ELLIPTA) 100-62.5-25 mcg inhalation powder Daily - LOKELMA 10 gram oral packet - albuterol (PROVENTIL) 2.5 mg /3 mL (0.083 %) nebulizer solution Use 1 mL via nebulizer two times a day. - albuterol sulfate 90 mcg/actuation breath activated powder inhaler Inhale 1 Puff as instructed two times a day. - ltpyupavxx-sedkpesm-zbyqm terol (BREZTRI AEROSPHERE) 160-9-4.8 mcg/actuation HFA aerosol inhaler Inhale 1 Puff as instructed once daily. - bumetanide (BUMEX) 2 mg tablet Take 1 tablet by mouth two times a day. - hydrALAZINE (APRESOLINE) 10 mg tablet Take 1 tablet by mouth three times a day. - isosorbide dinitrate (ISORDIL) 10 mg tablet Take 10 mg by mouth three times a day. - warfarin (COUMADIN) 2.5 mg tablet - warfarin (COUMADIN) 5 mg tablet Problem List As Of Date 11/12/2023 Noted Resolved Tobacco abuse [Z72.0] 11/19/2013 DVT (deep venous thrombosis) ([facility]) [I82.409] 03/02/2015 HTN (hypertension) [I10] 03/02/2015 History of TIA (transient ischemic attack) [Z86*03/02/2015 Unspecified sleep apnea [G47.30] 03/02/2015 Post-op pain [G89.18] 03/04/2015 02/11/2020 Hidradenitis suppurativa [L73.2] 11/18/2012 JENNY (acute kidney injury) ([facility]) [N17.9] 03/08/2015 Anticoagulation management encounter [Z51.81, Z*03/08/2015 Corneal thinning of both eyes [H18.893] 01/17/2018 01/14/2020 Type 2 diabetes mellitus with left eye affected*02/06/2018 Type 2 diabetes mellitus with right eye affecte*02/06/2018 Corneal thinning, bilateral [H18.893] 02/06/2018 Combined forms of age-related cataract of both *04/10/2018 Non-insulin dependent type 2 diabetes mellitus *08/21/2017 Vitamin D deficiency [E55.9] 09/19/2016 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 Normal [facility] BMPon 10-19-2023 Anion gap [Moles/Vol] 13 mmol/L Normal 6-16 [facility] Comment on above: Performed By: #### 2 [id number], [id number], 40754348, [id number] ####[facility] [address] [place] [address] Calcium [Mass/Vol] 8.6 mg/dL Low 8.9-11.1 [facility] Comment on above: Performed By: #### 2 [id number], 3272964, 35053802, 5177760 ####[facility] [address] [place] [place] [address] Chloride [Moles/Vol] 109 mmol/L Normal 101-111 [facility] Comment on above: Performed By: #### 2 191636, 6910465, 25283986, 8704938 ####[facility] [address] [address] CO2 [Moles/Vol] 19 mmol/L Low 21-31 [facility] Comment on above: Performed By: #### 2 107402, 7711153, 88413556, 3337109 ####[facility] [address] [place] [address] Creatinine [Mass/Vol] 4.0 mg/dL High 0.5-1.3 [facility] Comment on above: Performed By: #### 2 [id number], 8415621, 22177377, 7185079 ####[facility] [address] [place] [address] Glucose [Mass/Vol] 93 mg/dL Normal 55-199 [facility] Comment on above: Performed By: #### 2 192907, 0339518, 63317990, 0980554 ####[facility] [address] [place] [address] Potassium [Moles/Vol] 5.6 mmol/L High 3.5-5.3 [facility] Comment on above: Performed By: #### 2 143649, 4799980, 19106202, 2387838 ####[facility] [address] [place] [address] Sodium [Moles/Vol] 135 mmol/L Normal 135-145 [facility] Comment on above: Performed By: #### 2 366548, 3358588, 44282949, [id number] ####[facility] [address] [place] [address] Urea nitrogen [Mass/Vol] 54 mg/dL High 5-21 [facility] Comment on above: Performed By: #### 2 013277, 6726435, 64570228, 6402483 ####[facility] [address] [place] [address] Urea nitrogen/Creatinine [Mass ratio] 14 No Units Normal 10-20 [facility] Comment on above: Performed By: #### 2 307946, 9960321, 06584627, 3134674 ####[address] [address] CBC w/ Auto Diffon 4 Anisocytosis Ql (Bld) PRESENT Invalid Interpretation Code [facility] Comment on above: Performed By: #### 2 477705, 9679790, 97332713, 9235418 ####[address] [address] Basophils (Bld) [#/Vol] 0.2 E9/L Normal 0.0-0.2 [facility] Comment on above: Performed By: #### 2 233281, 2427303, 11763989, 3456441 ####[facility] [address] [place] [address] Eosinophils (Bld) [#/Vol] 0.3 E9/L Normal 0.0-0.5 [facility] Comment on above: Performed By: #### 2 794349, 3566730, 25113105, 0728040 ####[address] [place] [address] Eosinophils/100 WBC (Bld) 4.0 % Normal 0.0-8.0 [facility] Comment on above: Performed By: #### 2 977730, 8462810, 17773350, 1685126 ####[address] [address] Erythrocyte distribution width (RBC) [Ratio] 16.9 % High 10.9-14.2 [facility] Comment on above: Performed By: #### 2 547747, 6372063, 97929508, 2105730 ####[address] [address] Hematocrit (Bld) [Volume fraction] 36.9 % Low 37.7-49.0 [facility] Comment on above: Performed By: #### 2 179067, 9297384, 51676326, 9146459 ####[address] [address] Hemoglobin (Bld) [Mass/Vol] 12.1 g/dL Low 13.5-17.5 [facility] Comment on above: Performed By: #### 2 260141, 2721429, 43790321, 7690404 ####[address] [address] Lymphocytes (Bld) [#/Vol] 0.7 E9/L Low 1.0-4.0 [facility] Comment on above: Performed By: #### 2 765453, 9215952, 14203789, 7551406 ####[address] [address] Lymphocytes/100 WBC (Bld) 9.0 % Low 14.0-50.0 [facility] Comment on above: Performed By: #### 2 338213, 0271581, 56367937, 6777813 ####[address] [address] MCH (RBC) [Entitic mass] 28.3 pg Normal 27.0-34.0 [facility] Comment on above: Performed By: #### 2 470573, 5214761, 03123434, 3677161 ####[address] [place] [address] MCHC (RBC) [Mass/Vol] 32.7 g/dL Normal 31.4-36.0 [facility] Comment on above: Performed By: #### 2 479672, 9025001, 95954921, 9633903 ####[address] [address] MCV (RBC) [Entitic vol] 86.7 fL Normal 80.0-100.0 [facility] Comment on above: Performed By: #### 2 510451, 5535522, 42148200, 9133301 ####[address] Monocytes (Bld) [#/Vol] 0.3 E9/L Normal 0.2-1.0 [facility] Comment on above: Performed By: #### 2 229116, 5542140, 60359479, 9960796 ####[address] Neutrophils (Bld) [#/Vol] 5.0 E9/L Invalid Interpretation Code [facility] Comment on above: Performed By: #### 2 804820, 1965572, 41534497, 6255266 ####[address] [address] Nucleated cells (Bld) [#/Vol] 3 High 0-0 [facility] Comment on above: Performed By: #### 2 878929, 5030049, 48280034, 2555951 ####[address] [address] Platelet mean volume (Bld) [Entitic vol] 8.7 fL Normal 6.4-10.8 [facility] Comment on above: Performed By: #### 2 276606, 5030757, 93293173, 5723624 ####[address] [address] Platelets (Bld) [#/Vol] 169.0 E9/L Normal 150.0-500.0 [facility] Comment on above: Performed By: #### 2 770082, 4978509, 47789240, 0439556 ####[facility] [address] [place] [address] RBC (Bld) [#/Vol] 4.3 E12/L Normal 4.3-5.9 [facility] Comment on above: Performed By: #### 2 081817, 6851211, 43831713, 0002319 ####[address] [address] RBC size Nom (Bld) SEE MORPHOLOGY Invalid Interpretation Code [facility] Comment on above: Performed By: #### 2 266511, 3314294, 04344863, 5836054 ####[address] [address] Segmented neutrophils/100 WBC (Bld) 77 % High 50-70 [facility] Comment on above: Performed By: #### 2 289719, 5304567, 18587005, 2776483 ####[address] [address] Target cells LM Ql (Bld) PRESENT Invalid Interpretation Code [facility] Comment on above: Performed By: #### 2 825990, 6626983, 86157528, 2947272 ####[address] [address] Variant lymphocytes/100 WBC (Bld) 2 % High <=0 [facility] Comment on above: Performed By: #### 2 005969, 4424952, 40109087, 4065019 ####[facility] [address] [place] [address] WBC corrected for nucl RBC Auto (Bld) [#/Vol] 6.3 E9/L Normal 4.0-11.0 [facility] Comment on above: Performed By: #### 2 564971, 9019534, 34441353, 1915627 ####[address] [address] CHEMISTRYOrdered By: SYSTEM SYSTEM on 10-19-2023 Anion gap [Moles/Vol] 13 mmol/L Normal 6 - 16 mEq/L Remisol Chem Calcium [Mass/Vol] 8.6 mg/dL Low 8.9 - 11. 1 mg/dL Remisol Chem Chloride [Moles/Vol] 109 mmol/L Normal 101 - 1 11 mmol/L Remisol Chem CO2 [Moles/Vol] 19 mmol/L Low 21 - 31 mmol/L Remisol Chem Creatinine [Mass/Vol] 4.0 mg/dL High 0.5 - 1.3 mg/dL Remisol Chem eGFR 16 mL/min/1.73 m2 Low >=59mL/min / 1.73 m2 Remisol Chem Glucose [Mass/Vol] 93 mg/dL Normal 55 - 199 mg/dL Remisol Chem Potassium [Moles/Vol] 5.6 mmol/L High 3.5 - 5.3 mmol/L Remisol Chem Sodium [Moles/Vol] 135 mmol/L Normal 135 - 145 mmol/L Remisol Chem Urea nitrogen [Mass/Vol] 54 mg/dL High 5 - 21 mg/dL Remisol Chem Urea nitrogen/Creatinine [Mass ratio] 14 mg/mg Normal 10 - 20 Remisol Chem COAGULATIONOrdered By: Filiberto West on 10-19-2023 INR Coag (PPP) [Relative time] 1.23 {INR} Invalid Interpretation Code [facility] Comment on above: Interpretive Data: I NR results are specifically intended to assess patients stabilized on long-term Anticoagulation therapy suggested INR s Less Intensive Anticoagulation 2.0 3.0 Conventional Range 3.0 4.5 PT Coag (PPP) [Time] 13.8 s High 9.4 - 1 2.5 second(s) [facility] Comment on above: Interpretive Data: 1 5 days - 4 weeks 1 - 5 months 6 -11 months 1-5 years 6-10 years 11 -17 years Mean: 11.2 (9.5-12.6) Mean: 11.0 (9.7-12.8) Mean: 11.0 (9.8-13.0) Mean: 11.3 (9.9-13.4) Mean: 11.7 (10.0-14.6) Mean: 11.8 (10.0 - 14.1) Pediatric Reference ranges were obtained from a study by William Zhang et al. prepared from 1437 samples obtained at 7 different centers using the same coagulation reagent and instrumentation as [facility]. Currently there are no coagulation studies available worldwide for children to 14 days, and no normal ranges. Consultation Noteon 10-19-19 Consultation Note Normal [facility] Comment on above: Result Comment: Elec tronically Signed By: Marylou RIVERA, César Cordero\Date and Time Signed: 10/19/23 09:13 EDT Discharge Note-Nursingon Discharge Note-Nursing Normal [facility] GetWell Education Videoon GetWell Education Video Coronary Artery Disease and Depression Yes Patient Normal [facility] Meta Education Video Yes Patient Preventing Coronary Artery Disease Normal [facility] GetGoPro Education Video Yes Patient Coronary Artery Disease: Commit to Making an Exercise Plan Normal [facility] Meta Education Video Patient Coronary Artery Disease: 7 Ways to Help Lower Your Risk for a Heart Attack Yes Normal [facility] Meta Education Video Yes Patient Avoiding Infections in the Hospital Normal [facility] HEMATOLOGYOrdered By: SYSTEM SYSTEM on 10-19-2023 Anisocytosis Ql (Bld) PRESENT *NA* (10/19/23 6:33 AM) Invalid Interpretation Code [facility] Heme Basophils (Bld) [#/Vol] 0.2 E9/L Normal 0.0 - 0.2 E9/L [facility] Heme Basophils/100 WBC (Bld) 3.0 % High 0.0 - 2.0 % [facility] Eosinophils (Bld) [#/Vol] 0.3 E9/L Normal 0.0 - 0.5 E9/L [facility] Heme Eosinophils/100 WBC (Bld) 4.0 % Normal 0.0 - 8.0 [facility] Erythrocyte distribution width (RBC) [Ratio] 16.9 % High 10.9 - 14.2 % [facility] Hematocrit (Bld) [Volume fraction] 36.9 % Low 37.7 - 49.0 % [facility]e Hemoglobin (Bld) [Mass/Vol] 12.1 g/dL Low 13.5 - 17.5 gm/dL [facility] Lymphocytes (Bld) [#/Vol] 0.7 E9/L Low 1.0 - 4.0 E9/L [facility] Lymphocytes/100 WBC (Bld) 9.0 % Low 14.0 - 50.0 % [facility]e MCH (RBC) [Entitic mass] 28.3 pg Normal 27.0 - 34.0 pg Rem[facility] Heme MCHC (RBC) [Mass/Vol] 32.7 g/dL Normal 31.4 - 36.0 gm/dL [facility]e MCV (RBC) [Entitic vol] 86.7 fL Normal 80.0 - 100.0 fL [facility]e Monocytes (Bld) [#/Vol] 0.3 E9/L Normal 0.2 - 1.0 E9/L [facility]e Monocytes/100 WBC (Bld) 5.0 % Normal 4.0 - 14.0 % [facility] Neutrophils (Bld) [#/Vol] 5.0 E9/L Invalid Interpretation Code [facility] Nucleated cells (Bld) [#/Vol] 3 1 High 0 - 0 [facility] Platelet mean volume (Bld) [Entitic vol] 8.7 fL Normal 6.4 - 10.8 fL [facility] Platelets (Bld) [#/Vol] 169.0 E9/L Normal 150.0 - 500.0 E9/L [facility] Heme RBC (Bld) [#/Vol] 4.3 E12/L Normal 4.3 - 5.9 E12/L [facility] Heme RBC size Nom (Bld) SEE MORPHOLOGY *NA* (10/19/23 6:33 AM) Invalid Interpretation Code [facility] Segmented neutrophils/100 WBC (Bld) 77 % High 50 - 70 % [facility] Heme Target cells LM Ql (Bld) PRESENT *NA* (10/19/23 6:33 AM) Invalid Interpretation Code [facility] Variant lymphocytes/100 WBC (Bld) 2 % High <=0% [facility] WBC corrected for nucl RBC Auto (Bld) [#/Vol] 6.3 E9/L Normal 4.0 - 11.0 E9/L [facility] Inpatient Clinical Summaryon 10-19-2023 Inpatient Clinical Summary Normal [facility] Inpatient Patient Summaryon 10-19-2023 Inpatient Patient Summary Normal [facility] Interdisciplinary Note - Omar e Manageron 10-19-2023 Interdisciplinary Note - Electrical Cad Designer Normal [facility] Comment on above: Result Comment: Elec tronically Signed By: Amarilis ABEL, Tierra\.janet\Date and Time Signed: 10/19/23 12:05 EDT Monitor Recordon 10-19-2023 Monitor Record [id number] Normal [facility] Monitor Record [id number]#[id number] Normal [facility] PTon 10-19-2023 INR Coag (PPP) [Relative time] 1.23 {INR} Invalid Interpretation Code [facility] Comment on above: Result Comment: INR results are specifically intended to assess patients stabilized on long-term Anticoagulation therapy suggested INR?s ?Less Intensive Anticoagulation? 2.0 ? 3.0Conventional Range 3.0 ? 4.5 Performed By: #### 2 201087, 7985516, 84001074, 5236476 ####[facility] [address] [place] [address] PT Coag (PPP) [Time] 13.8 second(s) High 9.4-12.5 [facility] Comment on above: Result Comment: 15 d ays - 4 weeks 1 - 5 months 6 -11 months 1- 5 years 6-10 years 11 -17 years Mean: 11.2 (9.5-12.6) Mean: 11.0 (9.7-12.8) Mean: 11.0 (9.8-13.0) Mean: 11.3 (9.9-13.4) Mean: 11.7 (10.0-14.6) Mean: 11.8 (10.0 - 14.1) Pediatric Reference ranges were obtained from a study by cierra Vazquez al. prepared from 1437 samples obtained at 7 different centers using the same coagulation reagent and instrumentation as [facility]. Currently there are no coagulation studies available worldwide for children to 14 days, and no normal ranges. Performed By: #### 2 808987, 1102884, 36299850, 6359467 ####[facility] [address] [place] [address] Progress Note - Pharmacyon 0 10-19-2023 Progress Note - Pharmacy Normal [facility] Progress Note-Physicianon Progress Note-Physician Normal [facility] Comment on above: Result Comment: Elec tronically Signed By: Marylou RIVERA, César Cordero\Date and Time Signed: 10/19/23 09:38 EDT eGFRon 10-19-2023 eGFR 16 mL/min/1.73 m2 Low >=59 [facility] Comment on above: Order Comment: Order added by Discern Expert. Performed By: #### 2 577307, 0900509, 34034549, 8943797 ####[facility] [address] [place] [address] BMPon 10-18-2023 Anion gap [Moles/Vol] 15 mmol/L Normal 6-16 [facility] Comment on above: Performed By: #### 1 8813245, 16313449, 87962889, 9771634, 36230936, 7373375 ####[facility] [address] [place] [address] Calcium [Mass/Vol] 9.4 mg/dL Normal 8.9-11.1 [facility] Comment on above: Performed By: #### 1 0711293, 34494616, 50086555, 5706592, 63986113, 8763751 ####[facility] [address] [place] [address] Chloride [Moles/Vol] 108 mmol/L Normal 101-111 [facility] Comment on above: Performed By: #### 1 0187946, 52810337, 59842896, 1172023, 78965269, 6600325 ####[facility] [address] [place] [address] CO2 [Moles/Vol] 19 mmol/L Low 21-31 [facility] Comment on above: Performed By: #### 1 9646186, 45388359, 05483473, 9362960, 92883395, 8103228 ####[facility] [address] [place] [address] Creatinine [Mass/Vol] 3.3 mg/dL High 0.5-1.3 [facility] Comment on above: Performed By: #### 1 8027562, 39186665, 12229057, 8495931, 32032830, 9184396 ####[facility] [address] [place] [address] Glucose [Mass/Vol] 83 mg/dL Normal 55-199 [facility] Comment on above: Performed By: #### 1 2402291, 57619937, 67813681, 9321706, 41341443, 9610240 ####[facility] [address] [place] [address] Potassium [Moles/Vol] 5.3 mmol/L Normal 3.5-5.3 [facility] Comment on above: Performed By: #### 1 4461218, 23741723, 97432530, 0278900, 15794178, 8676435 ####[facility] [address] [place] [address] Sodium [Moles/Vol] 137 mmol/L Normal 135-145 [facility] Comment on above: Performed By: #### 1 2562742, 61744663, 84861524, 0454429, 79686064, 4129908 ####[facility] [address] [place] [address] Urea nitrogen [Mass/Vol] 48 mg/dL High 5-21 [facility] Comment on above: Performed By: #### 1 2500345, 86083825, 04228408, 9853293, 84753229, 2879403 ####[facility] [address] [place] [address] Urea nitrogen/Creatinine [Mass ratio] 14 No Units Normal 10-20 [facility] Comment on above: Performed By: #### 1 0856555, 03778649, 50751402, 9511737, 29911457, 2972387 ####[address] [place] [address] CBC w/ Auto Diffon 4 Basophils/100 WBC (Bld) 2.7 % High 0.0-2.0 [facility] Comment on above: Performed By: #### 1 3395854, 51248313, 08979349, 9315905, 34068185, 9642981 ####[address] [place] [address] Basophils/Leukocytes Auto (Bld) [Pure # fraction] 0.2 E9/L Normal 0.0-0.2 [facility] Comment on above: Performed By: #### 1 8189875, 23655320, 60019510, 2712764, 86317475, 9877947 ####[address] [address] Eosinophils (Bld) [#/Vol] 0.3 E9/L Normal 0.0-0.5 [facility] Comment on above: Performed By: #### 1 1880641, 87028261, 13235207, 6474128, 13716245, 0833199 ####[address] [address] Eosinophils/100 WBC (Bld) 4.2 % Normal 0.0-8.0 [facility] Comment on above: Performed By: #### 1 6055518, 51145217, 70048575, 5922782, 05627419, 7936514 ####[address] [address] Erythrocyte distribution width (RBC) [Ratio] 17.0 % High 10.9-14.2 [facility] Comment on above: Performed By: #### 1 7845781, 57854054, 49149572, 2041160, 83393539, 8397060 ####[address] [place] [address] Hematocrit (Bld) [Volume fraction] 42.3 % Normal 37.7-49.0 [facility] Comment on above: Performed By: #### 1 4558734, 69096839, 21522388, 1363297, 01065042, 8283186 ####[facility] [address] [place] [address] Hemoglobin (Bld) [Mass/Vol] 13.7 g/dL Normal 13.5-17.5 [facility] Comment on above: Performed By: #### 1 5080087, 86282284, 79801421, 2934385, 42229931, 0055307 ####[facility] [address] [place] [address] Lymphocytes (Bld) [#/Vol] 0.8 E9/L Low 1.0-4.0 [facility] Comment on above: Performed By: #### 1 9482569, 07619372, 66230791, 4998833, 38381573, 0582049 ####[address] Lymphocytes/100 WBC (Bld) 12.0 % Low 14.0-50.0 [facility] Comment on above: Performed By: #### 1 9994035, 79586457, 07324940, 1017870, 05145844, 7091543 ####[facility] [address] [place] [address] MCH (RBC) [Entitic mass] 28.3 pg Normal 27.0-34.0 [facility] Comment on above: Performed By: #### 1 2019134, 82553073, 23038180, 1108923, 76564257, 4913213 ####[facility] [address] [place] [address] MCHC (RBC) [Mass/Vol] 32.5 g/dL Normal 31.4-36.0 [facility] Comment on above: Performed By: #### 1 0714561, 82849162, 85462998, 4131402, 77816712, 1260106 ####[facility] [address] [place] [address] MCV (RBC) [Entitic vol] 87.1 fL Normal 80.0-100.0 [facility] Comment on above: Performed By: #### 1 4733733, 46648565, 59157554, 3296827, 97632949, 2942447 ####[facility] [address] [place] [address] Monocytes (Bld) [#/Vol] 0.6 E9/L Normal 0.2-1.0 [facility] Comment on above: Performed By: #### 1 6327288, 25192359, 50880616, 2949409, 90681354, 8086669 ####[address] [place] [address] Neutrophils (Bld) [#/Vol] 5.0 E9/L Normal 2.0-7.5 [facility] Comment on above: Performed By: #### 1 3543966, 62802779, 00751293, 3321858, 15098271, 1373011 ####[address] [address] Neutrophils/100 WBC (Bld) 72.9 % Normal 36.0-75.0 [facility] Comment on above: Performed By: #### 1 7631033, 27161055, 70884041, 3088500, 75759239, 5153892 ####[address] [place] [address] Platelet mean volume (Bld) [Entitic vol] 8.4 fL Normal 6.4-10.8 [facility] Comment on above: Performed By: #### 1 0123008, 97596980, 11912517, 9427217, 22559076, 9635403 ####[address] [place] [address] Platelets (Bld) [#/Vol] 184.0 E9/L Normal 150.0-500.0 [facility] Comment on above: Performed By: #### 1 6873175, 08267157, 93522748, 9240325, 50502459, 7791251 ####[facility] [address] [place] [address] RBC (Bld) [#/Vol] 4.9 E12/L Normal 4.3-5.9 [facility] Comment on above: Performed By: #### 1 1693068, 39064821, 64822208, 5039390, 86853760, 2816918 ####[facility] [address] [place] [address] WBC corrected for nucl RBC Auto (Bld) [#/Vol] 6.8 E9/L Normal 4.0-11.0 [facility] Comment on above: Performed By: #### 1 6942145, 20126537, 48841746, 8442524, 82942559, 6877811 ####[facility] [address] [place] [address] CHEMISTRYOrdered By: SYSTEM SYSTEM on 10-18-2023 Troponin 24.70 pg/mL Normal 15.90 - 38.40 pg/mL Remisol Chem Comment on above: Interpretive Data: T he 95% CI (Confidence Interval) PPV (Positive Predictive Value) for myocardial infarction in females is 38 pg/mL, in males 51 pg/mL. The results should be used in conjunction with clinical conditions of myocardial infarction. (Access High Sensitivity Troponin I Instructions For Use, [place], February 2018) CRP [Mass/Vol] 0.5 mg/dL Normal <=1.9mg/dL Remisol em Troponin 26.80 pg/mL Normal 15.90 - 38.40 pg/mL Remisol Chem Comment on above: Interpretive Data: T he 95% CI (Confidence Interval) PPV (Positive Predictive Value) for myocardial infarction in females is 38 pg/mL, in males 51 pg/mL. The results should be used in conjunction with clinical conditions of myocardial infarction. (Access High Sensitivity Troponin I Instructions For Use, [place], February 2018) Troponin 25.80 pg/mL Normal 15.90 - 38.40 pg/mL Remisol Chem Comment on above: Interpretive Data: T he 95% CI (Confidence Interval) PPV (Positive Predictive Value) for myocardial infarction in females is 38 pg/mL, in males 51 pg/mL. The results should be used in conjunction with clinical conditions of myocardial infarction. (Access High Sensitivity Troponin I Instructions For Use, Darío Sung, February 2018) Anion gap [Moles/Vol] 15 mmol/L Normal 6 - 16 mEq/L Remisol Chem Calcium [Mass/Vol] 9.4 mg/dL Normal 8.9 - 11. 1 mg/dL Remisol Chem Chloride [Moles/Vol] 108 mmol/L Normal 101 - 1 11 mmol/L Remisol Chem CO2 [Moles/Vol] 19 mmol/L Low 21 - 31 mmol/L Remisol Chem Creatinine [Mass/Vol] 3.3 mg/dL High 0.5 - 1.3 mg/dL Remisol Chem eGFR 20 mL/min/1.73 m2 Low >=59mL/min / 1.73 m2 Remisol Chem Glucose [Mass/Vol] 83 mg/dL Normal 55 - 199 mg/dL Remisol Chem Potassium [Moles/Vol] 5.3 mmol/L Normal 3.5 - 5.3 mmol/L Remisol Chem Sodium [Moles/Vol] 137 mmol/L Normal 135 - 145 mmol/L Remisol Chem Urea nitrogen [Mass/Vol] 48 mg/dL High 5 - 21 mg/dL Remisol Chem Urea nitrogen/Creatinine [Mass ratio] 14 mg/mg Normal 10 - 20 Remisol Chem COAGULATIONOrdered By: Alexsandra Kim on 10-18-2023 aPTT Coag (PPP) [Time] 40.2 s High 25.1 - 36.5 second(s) [facility] Comment on above: Interpretive Data: P arameter 15 days - 4 weeks 1 - 5 months 6 - 11 months 1 - 5 years 6 - 10 years 11 - 17 years PTT Mean: 35.4 (27.6-45.6) Mean: 33.5 (24.8-40.7) Mean: 32.4 (25.1-40.7) Mean: 31.6 (24.0-39.2) Mean: 31.6 (26.9-38.7) Mean: 31.0 (24.6-38.4) Pediatric Reference ranges were obtained from a study by William Zhang et al. prepared from 1437 samples obtained at 7 different centers using the same coagulation reagent and instrumentation as [facility]. Currently there are no coagulation studies available worldwide for children to 14 days, and no normal ranges. Heparin therapeutic range (represented by Anti-Factor Xa activity of 0.2 - 0.4 U/mL) corresponds to PTT of 56.6 - 109.0 sec. INR Coag (PPP) [Relative time] 1.17 {INR} Invalid Interpretation Code [facility] Comment on above: Interpretive Data: I NR results are specifically intended to assess patients stabilized on long-term Anticoagulation therapy suggested INR s Less Intensive Anticoagulation 2.0 3.0 Conventional Range 3.0 4.5 PT Coag (PPP) [Time] 13.1 s High 9.4 - 1 2.5 second(s) [facility] Comment on above: Interpretive Data: 1 5 days - 4 weeks 1 - 5 months 6 -11 months 1 5 years 6 10 years 11 -17 years Mean: 11.2 (9.5 12.6) Mean: 11.0 (9.7 12.8) Mean: 11.0 (9.8 13.0) Mean: 11.3 (9.9 13.4) Mean: 11.7 (10.0 14.6) Mean: 11.8 (10.0 - 14.1) Pediatric Reference ranges were obtained from a study by William Zhang et al. prepared from 1437 samples obtained at 7 different centers using the same coagulation reagent and instrumentation as [facility]. Currently there are no coagulation studies available worldwide for children to 14 days, and no normal ranges. CRPon 10-18-2023 CRP [Mass/Vol] 0.5 mg/dL Normal <=1.9 [facility] Comment on above: Performed By: #### 1 [id number], [id number] ####[facility] [address] [place] [address] Consent for Treatmenton 09-21 Consent for Treatment [id number]#[id number] Normal [facility] Consultation Noteon 10-18-19 24 Consultation Note Normal [facility] Comment on above: Result Comment: Elec tronically Signed By: Marylou RIVERA, César Wiggins.br\Date and Time Signed: 10/18/23 11:55 EDT ED Clinical Summaryon 2023 ED Clinical Summary Normal [facility] ED Note-Physicianon 10-18-19 ED Note-Physician Normal [facility] Comment on above: Result Comment: Elec tronically Signed By: Corky Heredia DO\Date and Time Signed: 10/18/23 07:57 EDT ED Patient Education Noteon 10-18-2023 ED Patient Education Note Normal [facility] ED Patient Summaryon 024 ED Patient Summary Normal [facility] Formson 10-18-2023 Forms [id number] Normal [facility] HEMATOLOGYOrdered By: SYSTEM SYSTEM on 10-18-2023 Basophils/100 WBC (Bld) 2.7 % High 0.0 - 2.0 % Remisol Heme Basophils/Leukocytes Auto (Bld) [Pure # fraction] 0.2 E9/L Normal 0.0 - 0.2 E9/L [facility] Eosinophils (Bld) [#/Vol] 0.3 E9/L Normal 0.0 - 0.5 E9/L [facility] Eosinophils/100 WBC (Bld) 4.2 % Normal 0.0 - 8.0 % [facility] Erythrocyte distribution width (RBC) [Ratio] 17.0 % High 10.9 - 14.2 % [facility] Hematocrit (Bld) [Volume fraction] 42.3 % Normal 37.7 - 49.0 % [facility] Hemoglobin (Bld) [Mass/Vol] 13.7 g/dL Normal 13.5 - 17.5 gm/dL [facility] Lymphocytes (Bld) [#/Vol] 0.8 E9/L Low 1.0 - 4.0 E9/L [facility] Lymphocytes/100 WBC (Bld) 12.0 % Low 14.0 - 50.0 % [facility] MCH (RBC) [Entitic mass] 28.3 pg Normal 27.0 - 34.0 pg [facility]e MCHC (RBC) [Mass/Vol] 32.5 g/dL Normal 31.4 - 36.0 gm/dL [facility] MCV (RBC) [Entitic vol] 87.1 fL Normal 80.0 - 100.0 fL [facility] Monocytes (Bld) [#/Vol] 0.6 E9/L Normal 0.2 - 1.0 E9/L [facility] Monocytes/100 WBC (Bld) 8.2 % Normal 4.0 - 14.0 % [facility] Neutrophils (Bld) [#/Vol] 5.0 E9/L Normal 2.0 - 7.5 E9/L [facility] Neutrophils/100 WBC (Bld) 72.9 % Normal 36.0 - 75.0 % [facility] Platelet mean volume (Bld) [Entitic vol] 8.4 fL Normal 6.4 - 10.8 fL [facility] Platelets (Bld) [#/Vol] 184.0 E9/L Normal 150.0 - 500.0 E9/L [facility] RBC (Bld) [#/Vol] 4.9 E12/L Normal 4.3 - 5.9 E12/L [facility] WBC corrected for nucl RBC Auto (Bld) [#/Vol] 6.8 E9/L Normal 4.0 - 11.0 E9/L [facility] HEMATOLOGYOrdered By: Laurita Corcoran on 10-18-2023 ESR (Bld) [Velocity] 23 mm/h High 0 - 19 mm/hr [facility] [employer] Insurance Correspondence Off iceon 10-18-2023 Insurance Correspondence Office [id number] F Normal [facility] Message from Medicareon 09-21 Message from Medicare [id number]#1.00TIFF Normal [facility] Monitor Recordon 10-18-2023 Monitor Record [id number]#[id number] Normal [facility] PT & PTTon 10-18-2023 aPTT Coag (PPP) [Time] 40.2 second(s) High 25.1-36.5 [facility] Comment on above: Result Comment: Para meter 15 days - 4 weeks 1 - 5 months 6 - 11 months 1 - 5 years 6 - 10 years 11 - 17 years PTT Mean: 35.4 (27.6-45.6) Mean: 33.5 (24.8-40.7) Mean: 32.4 (25.1-40.7) Mean: 31.6 (24.0-39.2) Mean: 31.6 (26.9-38.7) Mean: 31.0 (24.6-38.4) Pediatric Reference ranges were obtained from a study by William Zhang et al. prepared from 1437 samples obtained at 7 different centers using the same coagulation reagent and instrumentation as [facility]. Currently there are no coagulation studies available worldwide for children to 14 days, and no normal ranges. Heparin therapeutic range (represented by Anti-Factor Xa activity of 0.2 - 0.4 U/mL) corresponds to PTT of 56.6 - 109.0 sec. Performed By: #### 1 [id number], [id number], [id number], [id number], [id number], [id number] ####[facility] [address] [place] [address] INR Coag (PPP) [Relative time] 1.17 {INR} Invalid Interpretation Code [facility] Comment on above: Result Comment: INR results are specifically intended to assess patients stabilized on long-term Anticoagulation therapy suggested INR?s ?Less Intensive Anticoagulation? 2.0 ? 3.0Conventional Range 3.0 ? 4.5 Performed By: #### 1 [id number], [id number], [id number], [id number], [id number] ####[facility] [address] [place] [address] PT Coag (PPP) [Time] 13.1 second(s) High 9.4-12.5 [facility] Comment on above: Result Comment: 15 d ays - 4 weeks 1 - 5 months 6 -11 months 1 ? 5 years 6 ? 10 years 11 -17 years Mean: 11.2 (9.5 ? 12.6) Mean: 11.0 (9.7 ? 12.8) Mean: 11.0 (9.8 ? 13.0) Mean: 11.3 (9.9 ? 13.4) Mean: 11.7 (10.0 ? 14.6) Mean: 11.8 (10.0 - 14.1) Pediatric Reference ranges were obtained from a study by William Zhang et al. prepared from 1437 samples obtained at 7 different centers using the same coagulation reagent and instrumentation as [facility]. Currently there are no coagulation studies available worldwide for children to 14 days, and no normal ranges. Performed By: #### 1 [id number], [id number], [id number], [id number], [id number], [id number] ####[facility] [address] [place] [address] Progress Note - Pharmacyon 0 10-18-2023 Progress Note - Pharmacy Normal [facility] Sed Rate Automatedon 024 ESR (Bld) [Velocity] 23 mm/h High 0-[address] [facility] Comment on above: Performed By: #### 1 [id number], [id number], [id number], [id number], [id number] ####[facility] [address] [place] [address] Troponin 0 Hr.on 10-18-2023 Troponin 27.20 pg/mL Normal 15.90-38.40 [facility] Comment on above: Result Comment: The 95% CI (Confidence Interval) PPV (Positive Predictive Value) for myocardial infarction in females is 38 pg/mL, in males 51 pg/mL. The results should be used in conjunction with clinical conditions of myocardial infarction.(Access High Sensitivity Troponin I Instructions For Use, Darío SuddenValues, February 2018) Performed By: #### 1 [id number], [id number], [id number], [id number], [id number], [id number] ####[facility] [address] [place] [address] Troponin 3 Hr.on 10-18-2023 Troponin 25.80 pg/mL Normal 15.90-38.40 [facility] Comment on above: Result Comment: The 95% CI (Confidence Interval) PPV (Positive Predictive Value) for myocardial infarction in females is 38 pg/mL, in males 51 pg/mL. The results should be used in conjunction with clinical conditions of myocardial infarction.(Access High Sensitivity Troponin I Instructions For Use, Vinveli, February 2018) Performed By: #### 1 [id number] ####[facility] [address] [place] [address] Troponin 6 Hr.on 10-18-2023 Troponin 26.80 pg/mL Normal 15.90-38.40 [facility] Comment on above: Result Comment: The 95% CI (Confidence Interval) PPV (Positive Predictive Value) for myocardial infarction in females is 38 pg/mL, in males 51 pg/mL. The results should be used in conjunction with clinical conditions of myocardial infarction.(Access High Sensitivity Troponin I Instructions For Use, Vinveli, February 2018) Performed By: #### 1 [id number], [id number] ####[address] [place] [address] Troponin 9 Hr.on 10-18-2023 Troponin 24.70 pg/mL Normal 15.90-38.40 [facility] Comment on above: Result Comment: The 95% CI (Confidence Interval) PPV (Positive Predictive Value) for myocardial infarction in females is 38 pg/mL, in males 51 pg/mL. The results should be used in conjunction with clinical conditions of myocardial infarction.(Access High Sensitivity Troponin I Instructions For Use, Vinveli, February 2018) Performed By: #### 1 [id number] ####[address] [place] [address] XR Chest Single Viewon 10-17 XR Chest Single View Normal [facility] eGFRon 10-18-2023 eGFR 20 mL/min/1.73 m2 Low >=59 [facility] Comment on above: Order Comment: Order added by Discern Expert. Performed By: #### 1 [id number], [id number], [id number], [id number], [id number], [id number] ####[address] [place] [address] Consent for Treatmenton 09-20 Consent for Treatment [id number]#1.00TIFF Normal [facility] Discharge Instructionson Discharge Instructions [id number]#[id number] Normal [facility] ED Clinical Summaryon 2023 ED Clinical Summary Normal Epifanio [facility] ED Note-Physicianon 10-05-19 ED Note-Physician Normal [facility] Comment on above: Result Comment: Elec tronically Signed By: Donald Pollard PA-C\.br\Date and Time Signed: 10/05/23 10:06 EDT\.br\Electronically Co-Signed By: Chriss Oliver M.D.\.br\Date and Time Co-Signed: 10/05/23 10:15 EDT ED Patient Education Noteon 10-05-2023 ED Patient Education Note Normal [facility] ED Patient Summaryon 024 ED Patient Summary Normal [facility] Message from Medicareon 09-20 Message from Medicare [id number]#1.00TIFF Normal [facility] CNOVon 09-26-2023 CNOV Office Visit ([facility] ) ----- HIEN JOHNSON ([id number]) 1960 [employer] Date Time Provider Department 09/26/23 6:00 PM SHANEKA DIXON [facility] During your visit today, we recorded the following information about you: Temperature Pulse Respiration Blood pressure 97.8 degrees 107/minute 20/minute 165/106 Weight 108.4 kg Amy Wu Ma 09/26/2023 6:08 PM Signed Both 20/100 Right 20/000 Left 20/100 Shaneka Dixon PA-C 09/26/2023 7:13 PM Signed This note was created using NoteWriter. Subjective Hien Johnson is a 63 year old male. Complaint of eye pain and headache x 3 days. Patient recently just had a right cataract surgery on September 12, 2023. He states he has never had great vision after surgery. However over the last 3 days he is having a dull frontal headache with associated right-sided burning eye pain and even worsening blurred vision. He does complain of a foreign body sensation of the left eye. He has been using his prednisone drops as directed. He is unaware that his right eye is reddened as he cannot see very well. was unsure when the right eye started. He called his eye doctor who recommended he be seen in urgent care. Eye Problem Associated symptoms include headaches. Review of Systems Eyes: Positive for photophobia, pain, redness and visual disturbance. Neurological: Positive for headaches. Objective BP 165/106 Pulse 107 Temp 36.6 ?C (97.8 ?F) (Temporal) Resp 20 Wt 108.4 kg (239 lb) SpO2 97% BMI 32.41 kg/m? Physical Exam Constitutional: General: He is not in acute distress. Appearance: Normal appearance. He is not ill-appearing, toxic-appearing or diaphoretic. HENT: Head: Normocephalic and atraumatic. Eyes: Comments: Right eye with significant scleral and conjunctiva injection. He has a small pupil with sluggish reactivity to light source. No drainage. No pain on palpation around the eye. Left eye does have what appears to have a corneal defect. No conjunctival or scleral injection. Left pupil is sluggish to react to light. Visual acuity 20/100 L 20/100 R 20/100 together Neurological: General: No focal deficit present. Mental Status: He is alert and oriented to person, place, and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 Anticoagulation 2.0 3.0 Conventional Range 3.0 4.5 PT Coag (PPP) [Time] 34.4 s High 9.4 - 1 2.5 second(s) [facility] Comment on above: Interpretive Data: 1 5 days - 4 weeks 1 - 5 months 6 -11 months 1 5 years 6 10 years 11 -17 years Mean: 11.2 (9.5 12.6) Mean: 11.0 (9.7 12.8) Mean: 11.0 (9.8 13.0) Mean: 11.3 (9.9 13.4) Mean: 11.7 (10.0 14.6) Mean: 11.8 (10.0 - 14.1) Pediatric Reference ranges were obtained from a study by cierra Vazquez al. prepared from 1437 samples obtained at 7 different centers using the same coagulation reagent and instrumentation as [facility]. Currently there are no coagulation studies available worldwide for children to 14 days, and no normal ranges. Discharge Note-Nursingon Discharge Note-Nursing [facility] Inpatient Clinical Summaryon 09-10-2023 Inpatient Clinical Summary Normal [facility] Insurance Correspondence Off iceon 09-10-2023 Insurance Correspondence Office [id number]#1.00TIFF [facility] Interdisciplinary Note - Omar e Manageron 09-10-2023 Interdisciplinary Note - Electrical Cad Designer [facility] Comment on above: Result Comment: Elec tronically Signed By: Adelina Hsieh\.br\Date and Time Signed: 09/10/23 09:21 EST Monitor Recordon 09-10-2023 Monitor Record [id number]#1.00TIFF [facility] Monitor Record [id number]#1.00TIFF [facility] PT & PTTon 09-10-2023 aPTT Coag (PPP) [Time] 47.6 second(s) High 25.1-36.5 [facility] Comment on above: Result Comment: Para meter 15 days - 4 weeks 1 - 5 months 6 - 11 months 1 - 5 years 6 - 10 years 11 - 17 years PTT Mean: 35.4 (27.6-45.6) Mean: 33.5 (24.8-40.7) Mean: 32.4 (25.1-40.7) Mean: 31.6 (24.0-39.2) Mean: 31.6 (26.9-38.7) Mean: 31.0 (24.6-38.4) Pediatric Reference ranges were obtained from a study by jayesh Vazquez prepared from 1437 samples obtained at 7 different centers using the same coagulation reagent and instrumentation as [facility]. Currently there are no coagulation studies available worldwide for children to 14 days, and no normal ranges. Heparin therapeutic range (represented by Anti-Factor Xa activity of 0.2 - 0.4 U/mL) corresponds to PTT of 56.6 - 109.0 sec. Performed By: #### 1 [id number], 4549590, [id number] ####[facility] [address] [place] [address] INR Coag (PPP) [Relative time] 2.96 {INR} Invalid Interpretation Code [facility] Comment on above: Result Comment: INR results are specifically intended to assess patients stabilized on long-term Anticoagulation therapy suggested INR?s ?Less Intensive Anticoagulation? 2.0 ? 3.0Conventional Range 3.0 ? 4.5 Performed By: #### 1 [id number], [id number], [id number] ####[facility] [address] [place] [address] PT Coag (PPP) [Time] 34.4 second(s) High 9.4-12.5 [facility] Comment on above: Result Comment: 15 d ays - 4 weeks 1 - 5 months 6 -11 months 1 ? 5 years 6 ? 10 years 11 -17 years Mean: 11.2 (9.5 ? 12.6) Mean: 11.0 (9.7 ? 12.8) Mean: 11.0 (9.8 ? 13.0) Mean: 11.3 (9.9 ? 13.4) Mean: 11.7 (10.0 ? 14.6) Mean: 11.8 (10.0 - 14.1) Pediatric Reference ranges were obtained from a study by jayesh Vazquez prepared from 1437 samples obtained at 7 different centers using the same coagulation reagent and instrumentation as [facility]. Currently there are no coagulation studies available worldwide for children to 14 days, and no normal ranges. Performed By: #### 1 [id number], 3176352, [id number] ####[facility] [address] [place] [address] Progress Note - Pharmacyon 0 09-10-2023 Progress Note - Pharmacy Normal [facility] Progress Note-Nurseon 2023 Progress Note-Nurse Normal [facility] eGFRon 09-10-2023 eGFR 14 mL/min/1.73 m2 Low >=59 [facility] Comment on above: Order Comment: Order added by Discern Expert. Performed By: #### 1 [id number], 0473493, [id number] ####[facility] [address] [place] [address] BMPon 09-09-2023 Anion gap [Moles/Vol] 12 mmol/L Normal 6-16 [facility] Comment on above: Performed By: #### 2 [id number], [id number], 2760985, 6796484, 9776822, 5862033 ####[facility] [address] [place] [address] BUN/Creat Ratio 13 No Units Normal 10-20 [facility] Comment on above: Performed By: #### 2 [id number], [id number], 4023782, 0702055, 8166491, 6471980 ####[facility] [address] [place] [address] Calcium [Mass/Vol] 8.0 mg/dL Low 8.9-11.1 [facility] Comment on above: Performed By: #### 2 [id number], 61282654, 0664644, 7607077, 4522396, 3370487 ####[facility] [address] [place] [address] Chloride [Moles/Vol] 105 mmol/L Normal 101-111 [facility] Comment on above: Performed By: #### 2 [id number], 78843033, 8568141, 9925340, 7592655, 9778569 ####[facility] [address] [place] [address] CO2 [Moles/Vol] 27 mmol/L Normal 21-31 [facility] Comment on above: Performed By: #### 2 [id number], 00947525, 5060406, 8171992, 7213143, 3404809 ####[facility] [address] [place] [address] Creatinine [Mass/Vol] 4.2 mg/dL High 0.5-1.3 [facility] Comment on above: Performed By: #### 2 [id number], [id number], 4359802, 5488298, 6800755, 9868880 ####[facility] [address] [place] [address] Glucose [Mass/Vol] 115 mg/dL Normal 55-199 [facility] Comment on above: Performed By: #### 2 [id number], 69381768, 9450037, 0257125, 1329600, 8388272 ####[facility] [address] [place] [address] Potassium [Moles/Vol] 4.4 mmol/L Normal 3.5-5.3 [facility] Comment on above: Performed By: #### 2 [id number], 60416532, 5242261, 3083797, 8821160, 3207556 ####[facility] [address] [place] [address] Sodium [Moles/Vol] 140 mmol/L Normal 135-145 [facility] Comment on above: Performed By: #### 2 [id number], 11056845, 2501453, 9471778, 2377980, 8725133 ####[facility] [address] [place] [address] Urea nitrogen [Mass/Vol] 56 mg/dL High 5-21 [facility] Comment on above: Performed By: #### 2 [id number], 09448082, 3580967, 2284971, 0727615, 8076423 ####[facility] [address] [place] [id number] CHEMISTRYOrdered By: SYSTEM SYSTEM on 09-09-2023 Albumin [Mass/Vol] 3.5 g/dL Normal 3.3 - 5.0 gm/dL Remisol Chem Albumin/Globulin [Mass ratio] 0.9 {ratio} Low 1.1 - 2.2 Remisol Chem Alk Phos 130 [iU]/d High 21 - 98 Int._Unit/L Remisol Chem ALT 8 [iU]/d Normal 6 - 46 Int._Unit/L Remisol Chem Anion gap [Moles/Vol] 12 mmol/L Normal 6 - 16 mEq/L Remisol Chem AST 14 [iU]/d Normal 5 - 43 Int._Unit/L Remisol Chem Bili Direct 0.3 mg/dL Normal 0.0 - 0.4 mg/dL Remisol Chem Bili Indirect 1.3 mg/dL High 0.1 - 0.9 mg/dL Remisol Chem Bili Total 1.6 mg/dL High 0.0 - 1.1 mg/dL Remisol Chem Calcium [Mass/Vol] 8.0 mg/dL Low 8.9 - 11. 1 mg/dL Rem[facility] Chem Chloride [Moles/Vol] 105 mmol/L Normal 101 - 1 11 mmol/L Remisol Chem CO2 [Moles/Vol] 27 mmol/L Normal 21 - 31 mmol/L Remisol Chem Creatinine [Mass/Vol] 4.2 mg/dL High 0.5 - 1.3 mg/dL Rem[facility] Chem eGFR 15 mL/min/1.73 m2 Low >=59mL/min / 1.73 m2 Remisol Chem Globulin (S) [Mass/Vol] 3.7 g/dL Normal 1.4 - 4.0 gm/dL [facility] Glucose [Mass/Vol] 115 mg/dL Normal 55 - 199 mg/dL Rem[facility] Chem Magnesium [Mass/Vol] 1.8 mg/dL Normal 1.3 - 2 .4 mg/dL Remisol Chem Potassium [Moles/Vol] 4.4 mmol/L Normal 3.5 - 5.3 mmol/L Remisol Chem Protein [Mass/Vol] 7.2 g/dL Normal 6.0 - 7.8 gm/dL Remisol Chem Sodium [Moles/Vol] 140 mmol/L Normal 135 - 145 mmol/L Remisol Chem Urea nitrogen [Mass/Vol] 56 mg/dL High 5 - 21 mg/dL Remisol Chem Urea nitrogen/Creatinine [Mass ratio] 13 mg/mg Normal 10 - 20 [facility] CHEMISTRYOrdered By: Kimberly Rodriguez on 09-09-2023 Procalcitonin 0.10 ng/mL Normal 0.00 - 0.50 ng/mL [facility] Comment on above: Interpretive Data: < 0.5 ng/mL Low risk of severe sepsis and/or shock >2.0 ng/mL High risk of severe sepsis and/or shock Concentrations under 0.5 ng/mL do not exclude local infections or systemic infections in their initial stages (e.g.. under six hours from onset of illness). PCT concentrations between 0.5 and 2.0 ng/mL should be interpreted with consideration of the patient's history. In this range, it is recommended to retest PCT within 6 to 24 hours. Troponin 23.30 pg/mL Normal 15.90 - 38.40 pg/mL [facility] Comment on above: Interpretive Data: T he 95% CI (Confidence Interval) PPV (Positive Predictive Value) for myocardial infarction in females is 38 pg/mL, in males 51 pg/mL. The results should be used in conjunction with clinical conditions of myocardial infarction. (Access High Sensitivity Troponin I Instructions For Use, [place], February 2018) CT Abdomen/Pelvis w/o Contra ston 09-09-2023 CT Abdomen/Pelvis w/o Contrast Normal [facility] Hep Func Panelon 09-09-2023 Albumin [Mass/Vol] 3.5 g/dL Normal 3.3-5.0 [facility] Comment on above: Performed By: #### 2 [id number], 6917220, 4089005, 2362055, 5252722 ####[facility] [address] [place] [address] Albumin/Globulin [Mass ratio] 0.9 {ratio} Low 1.1-2.2 [facility] Comment on above: Performed By: #### 2 [id number], 90165939, 5515558, 5393673, 6826149, 5694266 ####[facility] [address] [place] [address] Alk Phos 130 Int._Unit/L High 21-98 [facility] Comment on above: Performed By: #### 2 [id number], 27908335, 2031341, 6064058, 6451241, 0660000 ####[facility] [address] [place] [address] ALT 8 Int._Unit/L Normal 6-46 [facility] Comment on above: Performed By: #### 2 [id number], 42450981, 3915067, 9027000, 5325077, 3676313 ####[address] [address] AST 14 Int._Unit/L Normal 5-43 [facility] Comment on above: Performed By: #### 2 [id number], 67889582, 8322564, 3378393, 1729894, 7664243 ####[facility] [address] [place] [address] Bili Direct 0.3 mg/dL Normal 0.0-0.4 [facility] Comment on above: Performed By: #### 2 [id number], 56102452, 0641122, 3835972, 7202933, 5259423 ####[facility] [address] [place] [address] Bili Indirect 1.3 mg/dL High 0.1-0.9 [facility] Comment on above: Performed By: #### 2 [id number], 36623746, 1836273, 6144272, 9826806, 2733163 ####[facility] [address] [place] [address] Bili Total 1.6 mg/dL High 0.0-1.1 [facility] Comment on above: Performed By: #### 2 [id number], 85974721, 3379360, 7217469, 5850771, 0923931 ####[facility] [address] [place] [address] Globulin (S) [Mass/Vol] 3.7 g/dL Normal 1.4-4.0 [facility] Comment on above: Performed By: #### 2 [id number], 15020511, 0102936, 8315698, 8273439, 9357186 ####[facility] [address] [place] [address] Protein [Mass/Vol] 7.2 g/dL Normal 6.0-7.8 [facility] Comment on above: Performed By: #### 2 [id number], 77185355, 1220196, 2833596, 0616481, 7617766 ####[facility] [address] [place] [address] Interdisciplinary Note - Omar e Manageron 09-09-2023 Interdisciplinary Note - Electrical Cad Designer Normal [facility] Comment on above: Result Comment: Elec tronically Signed By: Collin RN, Raven\.br\Date and Time Signed: 09/09/23 10:26 EST MICRO OTHER TESTSOrdered By: Laurita Corcoran on 09-09-2023 Rapid COV Int NEG Ctl Pass (09/09/23 3:55 PM) Normal [facility] Man Sero Rapid COV Int POS Ctl Pass (09/09/23 3:55 PM) Normal [facility] Sero SARS-CoV+SARS-CoV-2 (COVID-19) Ag IA.rapid Ql (Resp) Not Detected 10 (09/09/23 3:55 PM) Normal Not Detected [facility] Sero Comment on above: Interpretive Data: T jorge [employer] Veritor System for Rapid Detection of SARS-CoV-2 is a chromatographic digital immunoassay intended for the direct and qualitative detection of SARS-CoV-2 nucleocapsid antigens in nasal swabs from individuals who are suspected of COVID-19 by their healthcare provider within the first five days of the onset of symptoms. Negative results should be treated as presumptive, do not rule out SARS-CoV-2 infection and should not be used as the sole basis for treatment or patient management decisions, including infection control decisions. Negative results should be considered in the context of a patient s recent exposures, history and the presence of clinical signs and symptoms consistent with COVID-19, and confirmed with a molecular assay, if necessary, for patient management. For in vitro diagnostic use. In the [place], only for use under an Emergency Use Authorization. In the [place], this test has not been FDA cleared or approved; this test has been authorized by FDA under an EUA for use by authorized laboratories; use by laboratories certified under the CLIA, 42 U.S.C. 263a, that meet requirements to perform moderate, high, or waived complexity tests and at the Point of Care (POC), i.e., in patient care settings operating under a CLIA Certificate of Waiver, Certificate of Compliance, or Certificate of Accreditation. This test has been authorized only for the detection of proteins from SARS-CoV-2, not for any other viruses or pathogens; and, in the [place], this test is only authorized for the duration of the declaration that circumstances exist justifying the authorization of emergency use of in vitro diagnostics for detection and/or diagnosis of the virus that causes COVID-19 under Section 564(b)(1) of the Act, 21 U.S.C. 360bbb-3(b)(1), unless the authorization is terminated or revoked sooner. Magnesiumon 09-09-2023 Magnesium [Mass/Vol] 1.8 mg/dL Normal 1.3-2.4 [facility] Comment on above: Performed By: #### 2 [id number], 38945508, 8004715, 0405977, 7480465, 7787931 ####[facility] [address] [place] [address] Monitor Recordon 09-09-2023 Monitor Record [id number]#1.00TIFF Normal [facility] Monitor Record [id number]#1.00TIFF Normal [facility] Monitor Record [id number]#1.00TIFF Normal [facility] Monitor Record [id number]#1.00TIFF Normal [facility] Procalcitoninon 09-09-2023 Procalcitonin .10 ng/mL Normal .00-.50 [facility] Comment on above: Result Comment: <0.5 ng/mL Low risk of severe sepsis and/or shock>2.0 ng/mL High risk of severe sepsis and/or shockConcentrations under 0.5 ng/mL do not exclude local infections or systemic infections in their initial stages (e.g.. under six hours from onset of illness). PCT concentrations between 0.5 and 2.0 ng/mL should be interpreted with consideration of the patient's history. In this range, it is recommended to retest PCT within 6 to 24 hours. Performed By: #### 2 [id number], 77355087, 4090301, 1424649, 4099943, 7980035 ####[facility] [address] [place] [address] Progress Note-Nurseon 2023 Progress Note-Nurse Normal [facility] Progress Note-Physicianon Progress Note-Physician Normal [facility] Comment on above: Result Comment: Elec tronically Signed By: EMILY RIVERA, Cecefo\.br\Date and Time Signed: 09/09/23 09:22 EST Rapid COVID Antigen (MC)on 09-09-2023 Rapid COV Int NEG Ctl Pass Normal [facility] Comment on above: Order Comment: Colle ction kit sent to floor 3N 09/09/2023 14:00 CSS Performed By: #### 1 [id number], [id number] ####[facility] [address] [place] [address] Rapid COV Int POS Ctl Pass Normal [facility] Comment on above: Order Comment: Colle ction kit sent to floor 3N 09/09/2023 14:00 CSS Performed By: #### 1 [id number], [id number] ####[facility] [address] [place] [address] SARS-CoV+SARS-CoV-2 (COVID-19) Ag IA.rapid Ql (Resp) Not detected Normal Not Detected [facility] Comment on above: Order Comment: Trev ction kit sent to floor 3N 09/09/2023 14:00 CSS Result Comment: The [employer]? System for Rapid Detection of SARS-CoV-2 is a chromatographic digital immunoassay intended for the direct and qualitative detection of SARS-CoV-2 nucleocapsid antigens in nasal swabs from individuals who are suspected of COVID-19 by their healthcare provider within the first five days of the onset of symptoms. Negative results should be treated as presumptive, do not rule out SARS-CoV-2 infection and should not be used as the sole basis for treatment or patient management decisions, including infection control decisions. Negative results should be considered in the context of a patient?s recent exposures, history and the presence of clinical signs and symptoms consistent with COVID-19, and confirmed with a molecular assay, if necessary, for patient management. For in vitro diagnostic use. In the [place], only for use under an Emergency Use Authorization. In the [place], this test has not been FDA cleared or approved; this test has been authorized by FDA under an EUA for use by authorized laboratories; use by laboratories certified under the CLIA, 42 U.S.C. ?263a, that meet requirements to perform moderate, high, or waived complexity tests and at the Point of Care (POC), i.e., in patient care settings operating under a CLIA Certificate of Waiver, Certificate of Compliance, or Certificate of Accreditation.This test has been authorized only for the detection of proteins from SARS-CoV-2, not for any other viruses or pathogens; and, in the [facility], this test is only authorized for the duration of the declaration that circumstances exist justifying the authorization of emergency use of in vitro diagnostics for detection and/or diagnosis of the virus that causes COVID-19 under Section 564(b)(1) of the Act, 21 U.S.C. ? 360bbb-3(b)(1), unless the authorization is terminated or revoked sooner. Performed By: #### 1 [id number], [id number] ####[facility] [address] [place] [address] Respiratory Panel by PCRon 0 09-09-2023 Adenovirus DNA PARADISE+non-probe Ql (Nph) Not detected Normal [facility] Comment on above: Order Comment: Colle ction kit sent to floor 3 09/09/2023 14:00 CSS Result Comment: Test ing was performed using nucleic acid amplification including Influenza A, Influenza A H1, Influenza A H3, Influenza B, RSV A, RSV B, Adenovirus, Human Metapneumovirus, Parainfluenza 1,2,3, and 4, Rhinovirus, Bordetella parapertussis/bronchiseptica, Bordetella holmesii, and Bordetella pertussis. Performed By: #### 1 [id number], [id number] ####[address] [address] B. parapertussis DNA PARADISE+probe Ql (Upper resp) Not detected Normal Not Detected [facility] Comment on above: Order Comment: Trev ction kit sent to [address] 09/09/2023 14:00 CSS Performed By: #### 1 [id number], [id number] ####[address] [address] B. pertussis DNA PARADISE+probe Ql (Upper resp) Not detected Normal Not Detected [facility] Comment on above: Order Comment: Trev ction kit sent to [address] 09/09/2023 14:00 CSS Performed By: #### 1 [id number], [id number] ####[address] [address] FLUAV H1 RNA PARADISE+non-probe Ql (Nph) Not detected Normal [facility] Comment on above: Order Comment: Colle ction kit sent to floor 3 09/09/2023 14:00 CSS Performed By: #### 1 [id number], [id number] ####[address] [address] FLUAV H3 RNA PARADISE+non-probe Ql (Nph) Not detected Normal [facility] Comment on above: Order Comment: Colle ction kit sent to floor 09/09/2023 14:00 CSS Performed By: #### 1 [id number], [id number] ####[address] [address] FLUAV RNA PARADISE+non-probe Ql (Nph) Not detected Normal [facility] Comment on above: Order Comment: Colle ction kit sent to floor 09/09/2023 14:00 CSS Performed By: #### 1 [id number], [id number] ####[address] [address] FLUBV RNA PARADISE+non-probe Ql (Nph) Not detected Normal [facility] Comment on above: Order Comment: Colle ction kit sent to floor 09/09/2023 14:00 CSS Performed By: #### 1 [id number], [id number] ####[address] [address] Human Metapneumovirus Not detected Normal [facility] Comment on above: Order Comment: Colle ction kit sent to [address] 09/09/2023 14:00 CSS Result Comment: This test result should be correlated with clinical presentations and medical history by a healthcare provider to determine its clinical significance. Performed By: #### 1 [id number], [id number] ####[address] [address] Parainfluenza virus 1 RNA PARADISE+non-probe Ql (Nph) Not detected Normal [facility] Comment on above: Order Comment: Colle ction kit sent to [address] 09/09/2023 14:00 CSS Performed By: #### 1 [id number], [id number] ####[address] [address] Parainfluenza virus 2 RNA PARADISE+non-probe Ql (Nph) Not detected Normal [facility] Comment on above: Order Comment: Colle ction kit sent to [address] 09/09/2023 14:00 CSS Performed By: #### 1 [id number], [id number] ####[address] [address] Parainfluenza virus 3 RNA PARADISE+non-probe Ql (Nph) Not detected Normal [facility] Comment on above: Order Comment: Colle ction kit sent to floor 3N 09/09/2023 14:00 CSS Performed By: #### 1 [id number], [id number] ####[address] [address] Parainfluenza virus 4 RNA PARADISE+non-probe Ql (Nph) Not detected Normal [facility] Comment on above: Order Comment: Colle ction kit sent to floor 3N 09/09/2023 14:00 CSS Performed By: #### 1 [id number], [id number] ####[facility] [address] [place] [address] Resp Panel Intrl QC Pass Normal [facility] Comment on above: Order Comment: Colle ction kit sent to floor 3N 09/09/2023 14:00 CSS Performed By: #### 1 [id number], [id number] ####[address] [address] Rhinovirus+Enterovir us RNA PARADISE+non-probe Ql (Nph) Not detected Normal [facility] Comment on above: Order Comment: Colle ction kit sent to floor 3N 09/09/2023 14:00 CSS Performed By: #### 1 [id number], [id number] ####[address] [address] RSV RNA PARADISE+non-probe Ql (Nph) Not detected Normal [facility] Comment on above: Order Comment: Colle ction kit sent to floor 3 09/09/2023 14:00 CSS Performed By: #### 1 [id number], [id number] ####[address] [address] Troponinon 09-09-2023 Troponin 23.30 pg/mL Normal 15.90-38.40 [facility] Comment on above: Result Comment: The 95% CI (Confidence Interval) PPV (Positive Predictive Value) for myocardial infarction in females is 38 pg/mL, in males 51 pg/mL. The results should be used in conjunction with clinical conditions of myocardial infarction.(Access High Sensitivity Troponin I Instructions For Use, [place], February 2018) Performed By: #### 2 [id number], 61823810, 7860123, 8557328, 8194237, 8790336 ####[facility] [address] [place] [address] UA With Cult Reflexon 2023 Bacteria LM Ql (Urine sed) TRACE Normal Trace [facility] Comment on above: Order Comment: Urina ry Catheter Insertion triggered Urinalysis With Culture Reflex order by discern. Performed By: #### 1 [id number] ####[address] [address] Bilirubin Ql (U) Negative Normal Negative [facility] [place] Comment on above: Order Comment: Urina ry Catheter Insertion triggered Urinalysis With Culture Reflex order by discern. Performed By: #### 1 [id number] ####[address] [address] Clarity (U) CLEAR Normal Clear [facility] Comment on above: Order Comment: Urina ry Catheter Insertion triggered Urinalysis With Culture Reflex order by discern. Performed By: #### 1 [id number] ####[address] [address] Color (U) YELLOW Normal Yellow [facility] Comment on above: Order Comment: Urina ry Catheter Insertion triggered Urinalysis With Culture Reflex order by discern. Performed By: #### 1 [id number] ####[address] [address] Epithelial cells.squamous LM.HPF (Urine sed) [#/Area] 0-2 Normal 0-2 [facility] Comment on above: Order Comment: Urina ry Catheter Insertion triggered Urinalysis With Culture Reflex order by discern. Performed By: #### 1 [id number] ####[address] [address] Glucose Test strip (U) [Mass/Vol] Negative Normal Negative [facility] Comment on above: Order Comment: Urina ry Catheter Insertion triggered Urinalysis With Culture Reflex order by discern. Performed By: #### 1 [id number] ####[address] [place] [address] Hemoglobin Ql (U) TRACE Abnormal Negative [facility] Comment on above: Order Comment: Urina ry Catheter Insertion triggered Urinalysis With Culture Reflex order by discern. Performed By: #### 1 [id number] ####[facility] [address] [place] [address] Ketones (U) [Mass/Vol] Negative Normal Negative [facility] Comment on above: Order Comment: Urina ry Catheter Insertion triggered Urinalysis With Culture Reflex order by discern. Performed By: #### 1 [id number] ####[address] [address] Crawford.plasma/Lithi um.RBC (Bld) [Mass ratio] 0-3 Normal 0-3 [facility] Comment on above: Order Comment: Urina ry Catheter Insertion triggered Urinalysis With Culture Reflex order by discern. Performed By: #### 1 [id number] ####[address] [address] Nitrite Ql (U) Negative Normal Negative [facility] Comment on above: Order Comment: Urina ry Catheter Insertion triggered Urinalysis With Culture Reflex order by discern. Performed By: #### 1 [id number] ####[address] [address] pH (U) 6.0 [pH] Invalid Interpretation Code 5.0-9.0 [facility] Comment on above: Order Comment: Urina ry Catheter Insertion triggered Urinalysis With Culture Reflex order by discern. Performed By: #### 1 [id number] ####[address] [address] Protein (U) [Mass/Vol] 2+ Abnormal Negative [facility] Comment on above: Order Comment: Urina ry Catheter Insertion triggered Urinalysis With Culture Reflex order by discern. Performed By: #### 1 [id number] ####[address] [address] Specific gravity (U) [Rel density] 1.015 Invalid Interpretation Code 1.005-1.030 [facility] Comment on above: Order Comment: Urina ry Catheter Insertion triggered Urinalysis With Culture Reflex order by discern. Performed By: #### 1 [id number] ####[place] [address] Type of Urine collection method Catheter Normal [facility] Comment on above: Order Comment: Urina ry Catheter Insertion triggered Urinalysis With Culture Reflex order by discern. Performed By: #### 1 [id number] ####[place] [address] Urobilinogen Qn (U) 0.2 {Cesar'U}/dL Normal 0.0-1.0 [facility] Comment on above: Order Comment: Urina ry Catheter Insertion triggered Urinalysis With Culture Reflex order by discern. Performed By: #### 1 [id number] ####[place] [address] WBC Auto Ql (U) Negative Normal Negative [facility] Comment on above: Order Comment: Urina ry Catheter Insertion triggered Urinalysis With Culture Reflex order by discern. Performed By: #### 1 [id number] ####[place] [address] WBC LM.HPF (Urine sed) [#/Area] 0-5 Normal 0-5 [facility] Comment on above: Order Comment: Urina ry Catheter Insertion triggered Urinalysis With Culture Reflex order by discern. Performed By: #### 1 [id number] ####[place] [address] URINALYSISOrdered By: Juana Lopez on 09-09-2023 Bacteria LM Ql (Urine sed) Trace /HPF Normal Trace/HPF [facility] UA Auto SS Bilirubin Ql (U) Negative (09/09/23 5:12 AM) Normal Negative [facility] UA Auto SS Clarity (U) Clear (09/09/23 5:12 AM) Normal Clear [facility] UA Auto SS Color (U) Yellow (09/09/23 5:12 AM) Normal Yellow [facility] UA Auto SS Epithelial cells.squamous LM.HPF (Urine sed) [#/Area] 0-2 /HPF Normal 0-2/HPF [facility] UA Auto SS Glucose Test strip (U) [Mass/Vol] Negative (09/09/23 5:12 AM) Normal Negative [facility] UA Auto SS Hemoglobin Ql (U) Trace *ABN* (09/09/23 5:12 AM) Invalid Interpretation Code Negative [facility] UA Auto SS Ketones (U) [Mass/Vol] Negative (09/09/23 5:12 AM) Normal Negative [facility] UA Auto SS Crawford.plasma/Lithi um.RBC (Bld) [Mass ratio] 0-3 /HPF Normal 0-3/HPF [facility] UA Auto SS Nitrite Ql (U) Negative (09/09/23 5:12 AM) Normal Negative [facility] UA Auto SS pH (U) 6.0 *NA* (09/09/23 5:12 AM) Invalid Interpretation Code 5.0 - 9.0 [facility] UA Auto SS Protein (U) [Mass/Vol] 2+ *ABN* (09/09/23 5:12 AM) Invalid Interpretation Code Negative [facility] UA Auto SS Specific gravity (U) [Rel density] 1.015 *NA* (09/09/23 5:12 AM) Invalid Interpretation Code 1.005 - 1.030 [facility] UA Auto SS UA Spec Desc Catheter (09/09/23 5:12 AM) Normal [facility] UA Auto SS Urobilinogen Qn (U) 0.8392360 {Cesar'U}/dL Normal 0.0 - 1.0 EU/dL FT UA Auto SS WBC Auto Ql (U) Negative (09/09/23 5:12 AM) Normal Negative [facility] UA Auto SS WBC LM.HPF (Urine sed) [#/Area] 0-5 /HPF Normal 0-5/HPF [facility] UA Auto SS XR Chest Single Viewon 09-09 XR Chest Single View Normal [facility] eGFRon 09-09-2023 eGFR 15 mL/min/1.73 m2 Low >=59 [facility] Comment on above: Order Comment: Order added by Discern Expert. Performed By: #### 2 [id number], 11488966, 4828028, 4798505, 9078820, 3259783 ####[facility] [address] [place] [address] BMPon 09-08-2023 Anion gap [Moles/Vol] 14 mmol/L Normal 6-16 [facility] Comment on above: Performed By: #### 2 [id number], 46420712, 5881060, 89945797, 38083049, 8951483, 84161157, 7487700 ####[facility] [address] [place] [address] BUN/Creat Ratio 14 No Units Normal 10-20 [facility] [place] Comment on above: Performed By: #### 2 908703, 42547489, 8780501, 18642725, 27725090, 3607649, 65407567, 2923800 ####[facility] [address] [place] [address] Calcium [Mass/Vol] 8.0 mg/dL Low 8.9-11.1 [facility] Comment on above: Performed By: #### 2 728425, 99538764, 3010333, 13568397, 69182136, 2665659, 45690549, 6938144 ####[facility] [address] [place] [address] Chloride [Moles/Vol] 105 mmol/L Normal 101-111 [facility] Comment on above: Performed By: #### 2 391313, 39645143, 2486382, 42186516, 49559099, 9259888, 50083389, 7311633 ####[facility] [address] [place] [address] CO2 [Moles/Vol] 23 mmol/L Normal 21-31 [facility] Comment on above: Performed By: #### 2 536874, 18358424, 4810320, 93830259, 37984738, 4972036, 80150410, 2110499 ####[facility] [address] [place] [address] Creatinine [Mass/Vol] 4.0 mg/dL High 0.5-1.3 [facility] Comment on above: Performed By: #### 2 497330, 18475981, 8613210, 76261260, 64402355, 0873007, 71140178, 5236124 ####[facility] [address] [place] [address] Glucose [Mass/Vol] 112 mg/dL Normal 55-199 [facility] Comment on above: Performed By: #### 2 181854, 78754835, 1577786, 73075686, 63194480, 1284299, 98777880, 9613772 ####[facility] [address] [place] [address] Potassium [Moles/Vol] 4.1 mmol/L Normal 3.5-5.3 [facility] Comment on above: Performed By: #### 2 803531, 92019767, 1720290, 65642515, 27421639, 1464361, 07284430, 9311071 ####[facility] [facility] [address] [place] [address] Sodium [Moles/Vol] 138 mmol/L Normal 135-145 [facility] Comment on above: Performed By: #### 2 166640, 33243210, 6361833, 95966398, 03462346, 0330479, 06838572, 2277075 ####[facility] [address] [place] [address] Urea nitrogen [Mass/Vol] 55 mg/dL High 5-21 [facility] Comment on above: Performed By: #### 2 584473, 63212561, 2173334, 83417604, 18286529, 3901468, 23783568, 9213517 ####[facility] [address] [place] [address] BNPon 09-08-2023 Int Ctr BNP Pass Normal [facility] Comment on above: Performed By: #### 2 550199, 66718527, 2619855, 29859291, 26103704, 2459967, 14645446, 7728103 ####[facility] [address] [place] [address] Natriuretic peptide B (Bld) [Mass/Vol] 2010 pg/mL High 5-80 [facility] Comment on above: Performed By: #### 2 341989, 10594441, 3912316, 71618670, 75051225, 3128816, 18611288, 4234359 ####[facility] [address] [place] [address] CBC w/ Auto Diffon 4 Basophil Absolute 0.1 E9/L Normal 0.0-0.2 [facility] Comment on above: Performed By: #### 2 782169, 51062250, 8436128, 28863393, 99877669, 8466557, 10006961, 0501898 ####[address] [place] [address] Basophils/100 WBC (Bld) 1.5 % Normal 0.0-2.0 [facility] Comment on above: Performed By: #### 2 942361, 04545868, 0265704, 00365340, 04432078, 6146298, 77645139, 0401287 ####[address] [address] Eos Absolute 0.1 E9/L Normal 0.0-0.5 [facility] Comment on above: Performed By: #### 2 840438, 86114587, 1755582, 43715473, 41627275, 7037695, 06641652, 6720097 ####[address] [place] [address] Eosinophils/100 WBC (Bld) 1.3 % Normal 0.0-8.0 [facility] Comment on above: Performed By: #### 2 113396, 98189007, 6349039, 87199651, 97287882, 3681300, 37532766, 7237105 ####[address] [place] [address] Erythrocyte distribution width (RBC) [Ratio] 15.5 % High 10.9-14.2 [facility] Comment on above: Performed By: #### 2 201884, 69347978, 5415538, 26916390, 17952162, 9362650, 92405031, 3737821 ####[address] [place] [address] Hematocrit (Bld) [Volume fraction] 38.0 % Normal 37.7-49.0 [facility] Comment on above: Performed By: #### 2 913182, 85044862, 8690000, 48557239, 37649157, 2164291, 30892335, 2026002 ####[facility] [address] [place] [address] Hemoglobin (Bld) [Mass/Vol] 12.2 g/dL Low 13.5-17.5 [facility] Comment on above: Performed By: #### 2 088077, 82916245, 4744247, 98980783, 50524064, 9323782, 51244499, 5052487 ####[address] [address] Lymph Absolute 0.7 E9/L Low 1.0-4.0 [facility] Comment on above: Performed By: #### 2 411801, 98009628, 1484388, 04047917, 08393286, 4566544, 82016462, 7288731 ####[address] [address] Lymphocytes/100 WBC (Bld) 10.1 % Low 14.0-50.0 [facility] Comment on above: Performed By: #### 2 537772, 75064246, 5219431, 15473038, 40686048, 6604142, 45091464, 2093333 ####[address] [place] [address] MCH (RBC) [Entitic mass] 27.6 pg Normal 27.0-34.0 [facility] Comment on above: Performed By: #### 2 823917, 17470770, 4262932, 36791661, 90366182, 4086462, 25695513, 4967041 ####[address] [place] [address] MCHC (RBC) [Mass/Vol] 32.1 g/dL Normal 31.4-36.0 [facility] Comment on above: Performed By: #### 2 214579, 18336601, 4115485, 86005477, 41439443, 3694343, 33525607, 4410215 ####[address] [address] MCV (RBC) [Entitic vol] 85.9 fL Normal 80.0-100.0 [facility] Comment on above: Performed By: #### 2 012887, 41798212, 8253861, 16230950, 08581593, 1661168, 00613474, 7654170 ####[address] [address] [place] Absolute 0.6 E9/L Normal 0.2-1.0 [facility] Comment on above: Performed By: #### 2 005113, 55299827, 1237510, 10838929, 20687769, 9959662, 11104112, 5795041 ####[address] [address] Monocytes/100 WBC (Bld) 8.5 % Normal 4.0-14.0 [facility] Comment on above: Performed By: #### 2 858197, 25357094, 7009010, 71679410, 63771319, 3353839, 17182247, 7301065 ####[address] [address] Neutro Absolute 5.5 E9/L Normal 2.0-7.5 [facility] Comment on above: Performed By: #### 2 421823, 22545088, 4222503, 11610470, 69145085, 2875473, 92195583, 3283566 ####[address] [place] [address] Neutro Auto 78.6 % High 36.0-75.0 [facility] Comment on above: Performed By: #### 2 008313, 30528477, 2113984, 86417068, 22421194, 4591416, 36973573, 9734822 ####[facility] [address] [place] [address] Platelet 217.0 E9/L Normal 150.0-500.0 [facility] Comment on above: Performed By: #### 2 393847, 55317455, 5011643, 67406376, 85704960, 4083715, 60974205, 3100124 ####[facility] [address] [place] [address] Platelet mean volume (Bld) [Entitic vol] 8.8 fL Normal 6.4-10.8 [facility] Comment on above: Performed By: #### 2 842206, 08210193, 9707771, 30405841, 13556879, 7224033, 91774295, 6771296 ####[facility] [address] [place] [address] RBC 4.4 E12/L Normal 4.3-5.9 [facility] Comment on above: Performed By: #### 2 758291, 89080499, 8594839, 58634545, 16056538, 1846236, 18828665, 4488326 ####[facility] [address] [place] [address] WBC 6.9 E9/L Normal 4.0-11.0 [facility] Comment on above: Performed By: #### 2 745476, 71609030, 2930468, 67930630, 09856312, 4628566, 78874986, 4752357 ####[facility] [address] [place] [address] CHEMISTRYOrdered By: SYSTEM SYSTEM on 09-08-2023 Albumin [Mass/Vol] 3.5 g/dL Normal 3.3 - 5.0 gm/dL Remisol Chem Albumin/Globulin [Mass ratio] 0.9 {ratio} Low 1.1 - 2.2 [facility] Alk Phos 139 [iU]/d High 21 - 98 Int._Unit/L Remisol Chem ALT 9 [iU]/d Normal 6 - 46 Int._Unit/L Rem[facility] Chem Anion gap [Moles/Vol] 14 mmol/L Normal 6 - 16 mEq/L [facility] Chem AST 15 [iU]/d Normal 5 - 43 Int._Unit/L Rem[facility] Chem Bili Direct 0.5 mg/dL High 0.0 - 0.4 mg/dL [facility] Chem Bili Indirect 1.1 mg/dL High 0.1 - 0.9 mg/dL Remisol Chem Bili Total 1.6 mg/dL High 0.0 - 1.1 mg/dL [facility] Chem Calcium [Mass/Vol] 8.0 mg/dL Low 8.9 - 11. 1 mg/dL [facility] Chem Chloride [Moles/Vol] 105 mmol/L Normal 101 - 1 11 mmol/L [facility] Chem CO2 [Moles/Vol] 23 mmol/L Normal 21 - 31 mmol/L [facility] Creatinine [Mass/Vol] 4.0 mg/dL High 0.5 - 1.3 mg/dL [facility] Chem eGFR 16 mL/min/1.73 m2 Low >=59mL/min / 1.73 m2 [facility] Globulin (S) [Mass/Vol] 3.7 g/dL Normal 1.4 - 4.0 gm/dL [facility] Glucose [Mass/Vol] 112 mg/dL Normal 55 - 199 mg/dL [facility] Chem Lipase Lvl 25 unit/L Normal 13 - 58 unit/L [facility] Chem Potassium [Moles/Vol] 4.1 mmol/L Normal 3.5 - 5.3 mmol/L [facility] Chem Protein [Mass/Vol] 7.2 g/dL Normal 6.0 - 7.8 gm/dL [facility] Sodium [Moles/Vol] 138 mmol/L Normal 135 - 145 mmol/L [facility] Troponin 25.90 pg/mL Normal 15.90 - 38.40 pg/mL [facility] Comment on above: Interpretive Data: T he 95% CI (Confidence Interval) PPV (Positive Predictive Value) for myocardial infarction in females is 38 pg/mL, in males 51 pg/mL. The results should be used in conjunction with clinical conditions of myocardial infarction. (Access High Sensitivity Troponin I Instructions For Use, Darío [place], February 2018) Urea nitrogen [Mass/Vol] 55 mg/dL High 5 - 21 mg/dL [facility] Chem Urea nitrogen/Creatinine [Mass ratio] 14 mg/mg Normal 10 - 20 [facility] Chem CHEMISTRYOrdered By: Laurita lewis on 09-08-2023 Natriuretic peptide B (Bld) [Mass/Vol] 2010 pg/mL High 5 - 80 pg/mL [facility] COAGULATIONOrdered By: lEi Lopez on 09-08-2023 aPTT Coag (PPP) [Time] 44.8 s High 25.1 - 36.5 second(s) [facility] Comment on above: Interpretive Data: Nisa patterson 15 days - 4 weeks 1 - 5 months 6 - 11 months 1 - 5 years 6 - 10 years 11 - 17 years PTT Mean: 35.4 (27.6-45.6) Mean: 33.5 (24.8-40.7) Mean: 32.4 (25.1-40.7) Mean: 31.6 (24.0-39.2) Mean: 31.6 (26.9-38.7) Mean: 31.0 (24.6-38.4) Pediatric Reference ranges were obtained from a study by William Zhang et al. prepared from 1437 samples obtained at 7 different centers using the same coagulation reagent and instrumentation as [facility]. Currently there are no coagulation studies available worldwide for children to 14 days, and no normal ranges. Heparin therapeutic range (represented by Anti-Factor Xa activity of 0.2 - 0.4 U/mL) corresponds to PTT of 56.6 - 109.0 sec. INR Coag (PPP) [Relative time] 2.34 {INR} Invalid Interpretation Code [facility] Comment on above: Interpretive Data: I NR results are specifically intended to assess patients stabilized on long-term Anticoagulation therapy suggested INR s Less Intensive Anticoagulation 2.0 3.0 Conventional Range 3.0 4.5 PT Coag (PPP) [Time] 26.9 s High 9.4 - 1 2.5 second(s) [facility] Comment on above: Interpretive Data: 1 5 days - 4 weeks 1 - 5 months 6 -11 months 1 5 years 6 10 years 11 -17 years Mean: 11.2 (9.5 12.6) Mean: 11.0 (9.7 12.8) Mean: 11.0 (9.8 13.0) Mean: 11.3 (9.9 13.4) Mean: 11.7 (10.0 14.6) Mean: 11.8 (10.0 - 14.1) Pediatric Reference ranges were obtained from a study by cierra Vazquez al. prepared from 1437 samples obtained at 7 different centers using the same coagulation reagent and instrumentation as [facility]. Currently there are no coagulation studies available worldwide for children to 14 days, and no normal ranges. Consent for Treatmenton 08-23 Consent for Treatment [id number] Normal [facility] ED Clinical Summaryon 2023 ED Clinical Summary Normal [facility] ED Note-Nursingon 09-08-2023 ED Note-Nursing Normal [facility] ED Note-Physicianon 09-08-19 ED Note-Physician Normal [facility] Comment on above: Result Comment: Elec tronically Signed By: Lorraine Rose DO.br\Date and Time Signed: 09/08/23 23:00 EST ED Patient Education Noteon 09-08-2023 ED Patient Education Note Normal [facility] ED Patient Summaryon 024 ED Patient Summary Normal [facility] HEMATOLOGYOrdered By: SYSTEM SYSTEM on 09-08-2023 Basophil Absolute 0.1 E9/L Normal 0.0 - 0.2 E9/L Remisol Heme Basophils/100 WBC (Bld) 1.5 % Normal 0.0 - 2.0 % Remisol Heme Eos Absolute 0.1 E9/L Normal 0.0 - 0.5 E9/L Rem[facility] Heme Eosinophils/100 WBC (Bld) 1.3 % Normal 0.0 - 8.0 % Remisol Heme Erythrocyte distribution width (RBC) [Ratio] 15.5 % High 10.9 - 14.2 % Rem[facility] Heme Hematocrit (Bld) [Volume fraction] 38.0 % Normal 37.7 - 49.0 % Rem[facility] Heme Hemoglobin (Bld) [Mass/Vol] 12.2 g/dL Low 13.5 - 17.5 gm/dL [facility] Heme Lymph Absolute 0.7 E9/L Low 1.0 - 4.0 E9/L Rem[facility] Heme Lymphocytes/100 WBC (Bld) 10.1 % Low 14.0 - 50.0 % Remisol Heme MCH (RBC) [Entitic mass] 27.6 pg Normal 27.0 - 34.0 pg Remisol Heme MCHC (RBC) [Mass/Vol] 32.1 g/dL Normal 31.4 - 36.0 gm/dL Remisol Heme MCV (RBC) [Entitic vol] 85.9 fL Normal 80.0 - 100.0 fL Remisol Heme [place] Absolute 0.6 E9/L Normal 0.2 - 1.0 E9/L Rem[facility] Heme Monocytes/100 WBC (Bld) 8.5 % Normal 4.0 - 14.0 % [facility] Heme Neutro Absolute 5.5 E9/L Normal 2.0 - 7.5 E9/L [facility] Heme Neutro Auto 78.6 % High 36.0 - 75.0 % [facility] Heme Platelet 217.0 E9/L Normal 150.0 - 500.0 E9/L Rem[facility] Heme Platelet mean volume (Bld) [Entitic vol] 8.8 fL Normal 6.4 - 10.8 fL Remisol Heme RBC 4.4 E12/L Normal 4.3 - 5.9 E12/L Rem[facility] Heme WBC 6.9 E9/L Normal 4.0 - 11.0 E9/L Remisol Heme Hep Func Panelon 09-08-2023 Albumin [Mass/Vol] 3.5 g/dL Normal 3.3-5.0 [facility] Comment on above: Performed By: #### 2 022056, 86944850, 0193860, 80906419, 72735985, 1149547, 66710077, 4110261 ####[facility] [place] [address] Albumin/Globulin [Mass ratio] 0.9 {ratio} Low 1.1-2.2 [facility] Comment on above: Performed By: #### 2 795303, 42346970, 5674328, 88273212, 18986809, 7347689, 27589982, 1878629 ####[facility] [address] [place] [address] Alk Phos 139 Int._Unit/L High 21-98 [facility] Comment on above: Performed By: #### 2 183359, 57395789, 3594797, 72234515, 29106206, 3981914, 74056951, 4381257 ####[address] [place] [address] ALT 9 Int._Unit/L Normal 6-46 [facility] Comment on above: Performed By: #### 2 137637, 57937307, 1100097, 74942478, 32465265, 1579254, 24448419, 9913462 ####[address] [address] AST 15 Int._Unit/L Normal 5-43 [facility] Comment on above: Performed By: #### 2 776538, 05738136, 8894428, 96516300, 74400840, 0002732, 31237665, 3486023 ####[address] [address] Bili Direct 0.5 mg/dL High 0.0-0.4 [facility] Comment on above: Performed By: #### 2 654980, 71281447, 9374794, 05043511, 16428928, 3457749, 08751780, 7236711 ####[facility] [address] [place] [address] Bili Indirect 1.1 mg/dL High 0.1-0.9 [facility] Comment on above: Performed By: #### 2 869757, 80654038, 3439636, 55110842, 04219574, 8468653, 82574303, 8073950 ####[facility] [address] [place] [address] Bili Total 1.6 mg/dL High 0.0-1.1 [facility] Comment on above: Performed By: #### 2 577595, 30820363, 3424569, 97848012, 03642910, 0783779, 46488760, 2432704 ####[facility] [address] [place] [address] Globulin (S) [Mass/Vol] 3.7 g/dL Normal 1.4-4.0 [facility] Comment on above: Performed By: #### 2 139860, 07794226, 6685682, 29435521, 41721040, 5822634, 39957303, 5549284 ####[facility] [address] [place] [address] Protein [Mass/Vol] 7.2 g/dL Normal 6.0-7.8 [facility] Comment on above: Performed By: #### 2 189984, 50624645, 3718198, 33525582, 18184971, 5242313, 72291120, 6449321 ####[facility] [address] [place] [address] Lipase Levelon 09-08-2023 Lipase Lvl 25 unit/L Normal 13-58 [facility] Comment on above: Performed By: #### 2 225742, 16781876, 3196599, 75806067, 91647059, 8118482, 59286705, 5399379 ####[facility] [address] [place] [address] Monitor Recordon 09-08-2023 Monitor Record [id number] Normal [facility] PT & PTTon 09-08-2023 aPTT Coag (PPP) [Time] 44.8 second(s) High 25.1-36.5 [facility] Comment on above: Result Comment: Para meter 15 days - 4 weeks 1 - 5 months 6 - 11 months 1 - 5 years 6 - 10 years 11 - 17 years PTT Mean: 35.4 (27.6-45.6) Mean: 33.5 (24.8-40.7) Mean: 32.4 (25.1-40.7) Mean: 31.6 (24.0-39.2) Mean: 31.6 (26.9-38.7) Mean: 31.0 (24.6-38.4) Pediatric Reference ranges were obtained from a study by cierra Vazquez al. prepared from 1437 samples obtained at 7 different centers using the same coagulation reagent and instrumentation as [facility]. Currently there are no coagulation studies available worldwide for children to 14 days, and no normal ranges. Heparin therapeutic range (represented by Anti-Factor Xa activity of 0.2 - 0.4 U/mL) corresponds to PTT of 56.6 - 109.0 sec. Performed By: #### 2 284955, 90540016, 4976974, 70984595, 58909854, 1866395, 87873581, 9578268 ####[facility] [address] [place] [address] INR Coag (PPP) [Relative time] 2.34 {INR} Invalid Interpretation Code [facility] Comment on above: Result Comment: INR results are specifically intended to assess patients stabilized on long-term Anticoagulation therapy suggested INR?s ?Less Intensive Anticoagulation? 2.0 ? 3.0Conventional Range 3.0 ? 4.5 Performed By: #### 2 839358, 53252255, 8958813, 96548076, 83829940, 8138842, 67089500, 0061120 ####[facility] [address] [place] [address] PT Coag (PPP) [Time] 26.9 second(s) High 9.4-12.5 [facility] Comment on above: Result Comment: 15 d ays - 4 weeks 1 - 5 months 6 -11 months 1 ? 5 years 6 ? 10 years 11 -17 years Mean: 11.2 (9.5 ? 12.6) Mean: 11.0 (9.7 ? 12.8) Mean: 11.0 (9.8 ? 13.0) Mean: 11.3 (9.9 ? 13.4) Mean: 11.7 (10.0 ? 14.6) Mean: 11.8 (10.0 - 14.1) Pediatric Reference ranges were obtained from a study by William Zhang et al. prepared from 1437 samples obtained at 7 different centers using the same coagulation reagent and instrumentation as [facility]. Currently there are no coagulation studies available worldwide for children to 14 days, and no normal ranges. Performed By: #### 2 185358, 32984298, 8614480, 74917080, 68262489, 1903213, 91294992, 3753351 ####[facility] [address] [place] [address] RAD - Preliminary Cat Scan R eporton 09-08-2023 RAD - Preliminary Cat Scan Report [id number] Normal [facility] Troponin 0 Hr.on 09-08-2023 Troponin 25.90 pg/mL Normal 15.90-38.40 [facility] Comment on above: Result Comment: The 95% CI (Confidence Interval) PPV (Positive Predictive Value) for myocardial infarction in females is 38 pg/mL, in males 51 pg/mL. The results should be used in conjunction with clinical conditions of myocardial infarction.(Access High Sensitivity Troponin I Instructions For Use, Darío [place], February 2018) Performed By: #### 2 453203, 90432133, 3725817, 19404131, 34412942, 0112727, 60830257, 9313097 ####[facility] [address] [place] [address] eGFRon 09-08-2023 eGFR 16 mL/min/1.73 m2 Low >=59 [facility] Comment on above: Order Comment: Order added by Discern Expert. Performed By: #### 2 574789, 06864803, 6022121, 42972545, 26149932, 3771330, 08128264, 4044924 ####[facility] [address] [place] [address] CNOVon 09-03-2023 CNOV Office Visit (IMOPMN ) ----- HIEN JOHNSON ([id number]) 1960 M [place]* Date Time Provider Department 09/03/23 2:30 PM COLE MCCRAY OPMN During your visit today, we recorded the following information about you: Pulse Blood pressure Weight Height 84/minute 136/87 113.9 kg 1.829 m Summer Cerna LPN 09/03/2023 1:08 PM Signed Surgeon:Dr Castañeda Type of surgery:PHACOEMULSIFICATI ON CATARACT IMPLANT INTRAOCULAR LENS W/O ENDOSCOPIC CYCLOPHOTOCOAGULATION Laterality Anesthesia Op Region Right Monitored Anesthesia Care Eye Date of surgery:09/12/23 Identified patient by name and ?yes Pacemaker or ICD?no Last pacemaker check: Reviewed medications?by provider Cole Mccray APRN.BEAN PICKER MACHINE OPERATOR 09/03/2023 2:03 PM Addendum [facility] Patient Instructions for Surgery FOOD INSTRUCTIONS: NO solid food or non-clear liquids for 8 hours prior to the arrival time for your surgery. Unless you are instructed otherwise, you are allowed to drink up to 12 ounces of clear liquids (e.g. water, black tea/coffee, fruit juice without pulp, Maddison Mayra, etc.) up until 2 hours prior to the arrival time for surgery. MEDICATION INSTRUCTIONS: Prior to Surgery: You are allowed to take Tylenol if needed until the day of surgery. Continue all medications until the night prior to surgery CONTINUE WARFARIN MEDICATION INSTRUCTIONS: Day/Morning of Surgery: The following medications should be taken with sips of water: TAKE YOUR USUAL MORNING PRESCRIBED MEDICATIONS EXCEPT WATER PILL (BUMETANDINE) Tylenol, if needed for pain, can be taken on morning of surgery. Use your inhalers as needed / prescribed on day of surgery. Bring your inhaler with you to the hospital. If you have any questions or concerns regarding today's visit please do not hesitate to contact the [facility] at [phone] or [phone], ext [phone]. Signature: Cole Mccray Date: September 03, 2023 Cole Mccray APRN.CNP 09/03/2023 5:41 PM Signed HISTORY AND PHYSICAL EXAMINATION ([facility]) SERVICE DATE: 09/03/2023 SERVICE TIME: 9:36 AM PRIMARY CARE PHYSICIAN: Ricarda Al DO CHIEF COMPLAINT/HISTORY OF PRESENT ILLNESS: is a 63 year old male referred to me for preoperative evaluation. My final recommendations will be communicated back to the requesting physician/surgeon by the way of the shared medical record. Referring Surgeon: Dr. Rojo See Date of Surgery: 09/12/2023 Planned Surgery/Procedure: PHACO/IOL/OD Indication for Planned Surgery / Procedure: Nuclear sclerosis, right Refer to Assessment section for details of any comorbidities. Patient is Able to Perform the Following Physical Activity: Walk a block or two on level ground (2.75 METs) Climb a flight of stairs or walk up a hill (5.50 METs) Patient denies any chest pain or undue shortness of breath with the above physical activity. Partially dependent Patient's functional class is II based on self-reported physical activity. Significant Anesthesia Considerations: None. 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 PAST SURGICAL HISTORY OF 10/2013 Penile exploration with explant of bilateral Spectra penile prosthesis cylinders PAST SURGICAL HISTORY OF 06/2013 Insertion of malleable Spectra penile prosthesis PAST SURGICAL HISTORY OF 01/2013 Split-thickness skin graft of perineum, 10 cm x 19 cm. 2. Wound bed preparation, 10 cm x 19 cm PAST SURGICAL HISTORY OF 12/2012 Debridement of perineal wounds, subcutaneous tissue. 2. Placement of wound VAC dressing (15 cm x 13 cm x 2 cm). PAST SURGICAL HISTORY OF 12/2012 Removal and re-application of VAC dressing in the perineum greater than 50 cm PAST SURGICAL HISTORY OF repair of muscle under left eye PICC LINE INSERT/CONSULT 03/02/2015 FAMILY HISTORY Problem Relation Age of Onset other (DM) Mother Kidney Failure ( age 50's) Ca (more content not included)... Normal [facility] HISTORY PHYSICALon HISTORY PHYSICAL HNO ID: [id number] Author: COLE MCCRAY APRN.BEAN PICKER MACHINE OPERATOR Service: ? Author Type: Nurse Practitioner Type: H&P Filed: 09/03/2023 17:41 Note Text: HISTORY AND PHYSICAL EXAMINATION (IMPACT) SERVICE DATE: 09/03/2023 SERVICE TIME: 9:36 AM PRIMARY CARE PHYSICIAN: Ricarda Al DO CHIEF COMPLAINT/HISTORY OF PRESENT ILLNESS: is a 63 year old male referred to me for preoperative evaluation. My final recommendations will be communicated back to the requesting physician/surgeon by the way of the shared medical record. Referring Surgeon: Dr. Rojo See Date of Surgery: 09/12/2023 Planned Surgery/Procedure: PHACO/IOL/OD Indication for Planned Surgery / Procedure: Nuclear sclerosis, right Refer to Assessment section for details of any comorbidities. Patient is Able to Perform the Following Physical Activity: Walk a block or two on level ground (2.75 METs) Climb a flight of stairs or walk up a hill (5.50 METs) Patient denies any chest pain or undue shortness of breath with the above physical activity. Partially dependent Patient's functional class is II based on self-reported physical activity. Significant Anesthesia Considerations: None. 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 PAST SURGICAL HISTORY OF 10/2013 Penile exploration with explant of bilateral Spectra penile prosthesis cylinders PAST SURGICAL HISTORY OF 06/2013 Insertion of malleable Spectra penile prosthesis PAST SURGICAL HISTORY OF 01/2013 Split-thickness skin graft of perineum, 10 cm x 19 cm. 2. Wound bed preparation, 10 cm x 19 cm PAST SURGICAL HISTORY OF 12/2012 Debridement of perineal wounds, subcutaneous tissue. 2. Placement of wound VAC dressing (15 cm x 13 cm x 2 cm). PAST SURGICAL HISTORY OF 12/2012 Removal and re-application of VAC dressing in the perineum greater than 50 cm PAST SURGICAL HISTORY OF repair of muscle under left eye PICC LINE INSERT/CONSULT 03/02/2015 FAMILY HISTORY Problem Relation Age of Onset other (DM) Mother Kidney Failure ( age 50's) Cataract Father other (Leukemia) Father age 87 Multiple Sclerosis Brother Asthma Sister Diabetes Maternal Grandmother other (Crohn's) Daughter Thyroid SOCIAL HISTORY Social History Tobacco Use Smoking status: Every Day Years: 35 Types: Cigarettes Start date: 07/23/1974 Smokeless tobacco: Never Tobacco comments: 1 pack over 5 days Vaping Use Vaping Use: Never used Substance Use Topics Alcohol use: Yes Comment: beer Drug use: No Comment: denies tx for drug/alcohol abuse in the past. MEDICATIONS/ALLERGIES Current Outpatient Medications Medication Sig Dispense Refill prednisoLONE acetate (PRED FORTE) 1 % ophthalmic suspension Use 1 Drop in both eyes once daily. 5 mL 5 hydrALAZINE (APRESOLINE) 25 mg tablet (Patient not taking: Reported on 04/10/2023) HYDROmorphone (DILAUDID) 2 mg tablet TAKE 1 TABLET BY MOUTH EVERY 12 HOURS FOR 4 DAYS NEEDED FOR SEVERE PAIN (Patient not taking: Reported on 04/10/2023) warfarin (COUMADIN) 2.5 mg tablet (Patient not taking: Reported on 04/10/2023) chlorhexidine (HIBICLENS) 4 % external liquid 118 mL. (Patient not taking: Reported on 04/10/2023) nicotine (NICODERM) 7 mg/24 hr Apply as directed q 24 HR. (Patient not taking: Reported on 04/10/2023) warfarin (COUMADIN) 5 mg tablet Warfarin Warfarin Active 5 MG Oral every Sunday, Sunday, and Sunday April 28, 2019 4:44pm as directed by [facility] 04-28-2019 [facility] ([id number]) (Patient not taking: Reported on 04/10/2023) cephALEXin (KEFLEX) 500 mg capsule Take 500 mg by mouth twice daily. (Patient not taking: Reported on 04/10/2023) oxyCODONE IR (ROXICODONE) 5 mg immediate release tablet Take 5 mg by mouth. (Patient not taking: Reported on 04/10/2023) isosorbide dinitrate (ISORDIL) 10 mg tablet Take 10 mg by mouth three times daily. (Patient not taking: Reported on 04/10/2023) carvedilol (COREG) 12.5 mg tablet Take 12.5 mg by (more content not included)... Normal [facility] CHEMISTRYOrdered By: SYSTEM SYSTEM on 08-31-2023 Albumin [Mass/Vol] 3.5 g/dL Normal 3.3 - 5.0 gm/dL Remisol Chem Anion gap [Moles/Vol] 14 mmol/L Normal 6 - 16 mEq/L Remisol Chem Calcium [Mass/Vol] 7.4 mg/dL Low 8.9 - 11. 1 mg/dL Remisol Chem Chloride [Moles/Vol] 103 mmol/L Normal 101 - 1 11 mmol/L Remisol Chem CO2 [Moles/Vol] 26 mmol/L Normal 21 - 31 mmol/L Remisol Chem Creatinine [Mass/Vol] 3.7 mg/dL High 0.5 - 1.3 mg/dL Remisol Chem eGFR 18 mL/min/1.73 m2 Low >=59mL/min / 1.73 m2 Remisol Chem Glucose [Mass/Vol] 112 mg/dL Normal 55 - 199 mg/dL Remisol Chem Phosphate [Mass/Vol] 3.9 mg/dL Normal 1.9 - 4 .6 mg/dL Remisol Chem Potassium [Moles/Vol] 3.3 mmol/L Low 3.5 - 5.3 mmol/L Remisol Chem Sodium [Moles/Vol] 140 mmol/L Normal 135 - 145 mmol/L Remisol Chem Urea nitrogen [Mass/Vol] 52 mg/dL High 5 - 21 mg/dL Remisol Chem Urea nitrogen/Creatinine [Mass ratio] 14 mg/mg Normal 10 - 20 Remisol Chem Consent for Treatmenton Consent for Treatment [id number] Normal [facility] Physician Orderon 08-31-2023 Physician Order [id number]#1.00TIFF Normal [facility] Renal Panelon 08-31-2023 Albumin [Mass/Vol] 3.5 g/dL Normal 3.3-5.0 [facility] Comment on above: Performed By: #### 1 [id number], [id number] ####[facility] [address] [place] [address] Anion gap [Moles/Vol] 14 mmol/L Normal 6-16 [facility] Comment on above: Performed By: #### 1 7204770, [id number] ####[facility] [address] [place] [address] BUN/Creat Ratio 14 No Units Normal 10- [facility] Comment on above: Performed By: #### 1 [id number], [id number] ####[facility] [address] [place] [address] Calcium [Mass/Vol] 7.4 mg/dL Low 8.9-11.1 [facility] Comment on above: Performed By: #### 1 5347810, 15263568 ####[facility] [address] [place] [address] Chloride [Moles/Vol] 103 mmol/L Normal 101-111 [facility] Comment on above: Performed By: #### 1 1732139, 13912935 ####[facility] [address] [place] [address] CO2 [Moles/Vol] 26 mmol/L Normal 21-31 [facility] Comment on above: Performed By: #### 1 3531136, 80639801 ####[facility] [address] [place] [address] Creatinine [Mass/Vol] 3.7 mg/dL High 0.5-1.3 [facility] Comment on above: Performed By: #### 1 9053759, [id number] ####[address] [place] [address] Glucose [Mass/Vol] 112 mg/dL Normal 55-199 [facility] Comment on above: Performed By: #### 1 7998423, [id number] ####[address] [address] Phosphate [Mass/Vol] 3.9 mg/dL Normal 1.9-4.6 [facility] Comment on above: Performed By: #### 1 [id number], 78990106 ####[address] [address] Potassium [Moles/Vol] 3.3 mmol/L Low 3.5-5.3 [facility] Comment on above: Performed By: #### 1 6087563, 64133722 ####[facility] [address] [place] [address] Sodium [Moles/Vol] 140 mmol/L Normal 135-145 [facility] Comment on above: Performed By: #### 1 5554873, 55090639 ####[facility] [address] [place] [address] Urea nitrogen [Mass/Vol] 52 mg/dL High 5-21 [facility] Comment on above: Performed By: #### 1 3375160, 85449117 ####[address] [place] [address] eGFRon 08-31-2023 eGFR 18 mL/min/1.73 m2 Low >=59 [facility] Comment on above: Order Comment: Order added by Discern Expert. Performed By: #### 1 5382079, [id number] ####[facility] [address] [place] [address] PTH Intacton 08-19-2023 Parathyrin.intact [Mass/Vol] 362 pg/mL High 15-65 [facility] Comment on above: Result Comment: Perf ormed at: [facility] [address] [place], [place] [id number] PhD Perez Mccall Performed By: #### 1 [id number] ####[facility] [address] [place] [address] CHEMISTRYOrdered By: SYSTEM SYSTEM on 08-18-2023 Albumin [Mass/Vol] 3.3 g/dL Normal 3.3 - 5.0 gm/dL Remisol Chem Anion gap [Moles/Vol] 15 mmol/L Normal 6 - 16 mEq/L Remisol Chem Calcium [Mass/Vol] 7.7 mg/dL Low 8.9 - 11. 1 mg/dL Remisol Chem Chloride [Moles/Vol] 100 mmol/L Low 101 - 1 11 mmol/L Remisol Chem CO2 [Moles/Vol] 28 mmol/L Normal 21 - 31 mmol/L Remisol Chem Creatinine [Mass/Vol] 3.7 mg/dL High 0.5 - 1.3 mg/dL Remisol Chem eGFR 18 mL/min/1.73 m2 Low >=59mL/min / 1.73 m2 Remisol Chem Glucose [Mass/Vol] 90 mg/dL Normal 55 - 199 mg/dL Remisol Chem Phosphate [Mass/Vol] 3.5 mg/dL Normal 1.9 - 4 .6 mg/dL Remisol Chem Potassium [Moles/Vol] 3.1 mmol/L Low 3.5 - 5.3 mmol/L Remisol Chem Sodium [Moles/Vol] 140 mmol/L Normal 135 - 145 mmol/L Remisol Chem Vitamin D 25 Hydroxy 36.0 ng/mL Normal 30.0 - 100.0 ng/mL Remisol Chem CHEMISTRYOrdered By: Leon Kim on 08-18-2023 Urea nitrogen [Mass/Vol] 42 mg/dL High 5 - 21 mg/dL Remisol Chem Urea nitrogen/Creatinine [Mass ratio] 11 mg/mg Normal 10 - 20 Remisol Chem HbA1c (Bld) [Mass fraction] 6.2 % High <=5.9% [facility] ChemAutoSS Consent for Treatmenton 07-24 Consent for Treatment [id number] Normal [facility] Consent for Treatment [id number]#1.00TIFF Normal [facility] HEMATOLOGYOrdered By: SYSTEM SYSTEM on 08-18-2023 Hematocrit (Bld) [Volume fraction] 40.0 % Normal 37.7 - 49.0 % Remisol Heme Hemoglobin (Bld) [Mass/Vol] 12.8 g/dL Low 13.5 - 17.5 gm/dL Remisol Heme Hct & Hgbon 08-18-2023 Hematocrit (Bld) [Volume fraction] 40.0 % Normal 37.7-49.0 [facility] Comment on above: Performed By: #### 1 5123542, [id number], 82195576, 82950015 ####[facility] [address] [place] [address] Hemoglobin (Bld) [Mass/Vol] 12.8 g/dL Low 13.5-17.5 [facility] Comment on above: Performed By: #### 1 5687905, 689529209, 83017288, 42760198 ####[facility] [address] [place] [address] XspM6wpx 08-18-2023 HbA1c (Bld) [Mass fraction] 6.2 % High <=5.9 [facility] Comment on above: Performed By: #### 7 [id number] ####[facility] [address] [place] [address] Physician Orderon 01-27-2024 Physician Order [id number] Normal [facility] Physician Order [id number]#1.00TIFF Normal [facility] Renal Panelon 08-18-2023 Phosphate [Mass/Vol] 3.5 mg/dL Normal 1.9-4.6 [facility] Comment on above: Performed By: #### 1 2128257, 543453186, 62662669, 28045511 ####[facility] [address] [place] [address] BUN/Creat Ratio 11 No Units Normal 10-20 [facility] [place] Comment on above: Performed By: #### 1 7534498, 873281340, 57828575, 25040241 ####[facility] [address] [place] [address] Urea nitrogen [Mass/Vol] 42 mg/dL High 5-21 [facility] Comment on above: Performed By: #### 1 6835505, 828719935, 55364235, 25765499 ####[facility] [address] [place] [address] Albumin [Mass/Vol] 3.3 g/dL Normal 3.3-5.0 [facility] Comment on above: Performed By: #### 1 0197285, [id number], 13129167, 99084050 ####[facility] [address] [place] [address] Anion gap [Moles/Vol] 15 mmol/L Normal 6-16 [facility] Comment on above: Performed By: #### 1 8439056, 755882004, 02425675, 47798778 ####[facility] [address] [place] [address] Calcium [Mass/Vol] 7.7 mg/dL Low 8.9-11.1 [facility] Comment on above: Performed By: #### 1 8999329, 920153566, 79266036, 31790515 ####[facility] [address] [place] [address] Chloride [Moles/Vol] 100 mmol/L Low 101-111 [facility] Comment on above: Performed By: #### 1 1720692, 384183331, 58837879, 02162219 ####[facility] [address] [place] [address] CO2 [Moles/Vol] 28 mmol/L Normal 21-31 [facility] Comment on above: Performed By: #### 1 4985073, 388297901, 18459670, 86651898 ####[facility] [address] [place] [address] Creatinine [Mass/Vol] 3.7 mg/dL High 0.5-1.3 [facility] Comment on above: Performed By: #### 1 8213394, 639515052, 54087535, 24188417 ####[facility] [address] [place] [address] Glucose [Mass/Vol] 90 mg/dL Normal 55-199 [facility] Comment on above: Performed By: #### 1 7000590, 773864004, 16478718, 08798476 ####[facility] [address] [place] [address] Potassium [Moles/Vol] 3.1 mmol/L Low 3.5-5.3 [facility] Comment on above: Performed By: #### 1 8530326, 344598580, 14412115, 33527846 ####[facility] [address] [place] [address] Sodium [Moles/Vol] 140 mmol/L Normal 135-145 [facility] Comment on above: Performed By: #### 1 0953590, 811213933, 99884230, 07978385 ####[facility] [address] [place] [address] Vitamin D 25 Hydroxyon 08-18 Vitamin D 25 Hydroxy 36.0 ng/mL Normal 30.0-100.0 [facility] Comment on above: Performed By: #### 1 8359133, 345072157, 13417783, 16927382 ####[facility] [address] [place] [address] eGFRon 08-18-2023 eGFR 18 mL/min/1.73 m2 Low >=59 [facility] Comment on above: Order Comment: Order added by Discern Expert. Performed By: #### 1 0321907, 306221294, 84680837, 64976912 ####[facility] [address] [place] [address] C Blood Charcoalon Blood Culture Charcoal Normal [facility] Comment on above: Performed By: #### 1 7256080 ####[facility] [address] [place] [address] Consultation Noteon 05-03-20 Consultation Note Normal [facility] Comment on above: Result Comment: Elec tronically Signed By: Marylou RIVERA, César Paula\.br\Date and Time Signed: 05/03/23 13:25 EDT Discharge Instructionson Discharge Instructions [id number] Normal [facility] Prescriptions/Work Noteson Prescriptions/Work Notes [id number]#1.00TIFF Normal [facility] Auto Diffon 05-02-2023 Basophils/100 WBC (Bld) 0.1 % Normal 0.0-2.0 [facility] Comment on above: Order Comment: Order Added by Discern Expert. Performed By: #### 2 098614, 6848009, 4915004, 46769770, 9306682 ####[facility] [address] [place] [address] Basophils/Leukocytes Auto (Bld) [Pure # fraction] 0.0 E9/L Normal 0.0-0.2 [facility] Comment on above: Order Comment: Order Added by Discern Expert. Performed By: #### 2 266684, 2212378, 2727731, 88106220, 7707676 ####[address] [address] Eosinophils/100 WBC (Bld) 0.1 % Normal 0.0-8.0 [facility] Comment on above: Order Comment: Order Added by Discern Expert. Performed By: #### 2 725461, 8006581, 0484744, 72624830, 6639204 ####[address] [address] Eosinophils/Leukocyt es Auto (Bld) [Pure # fraction] 0.0 E9/L Normal 0.0-0.5 [facility] Comment on above: Order Comment: Order Added by Amol Expert. Performed By: #### 2 983951, 0217757, 6346718, 33181921, 1214192 ####[address] [address] Lymphocytes/100 WBC (Bld) 2.1 % Low 14.0-50.0 [facility] Comment on above: Order Comment: Order Added by Amol Expert. Performed By: #### 2 470269, 0436580, 1666439, 19263088, 5711793 ####[address] [address] Lymphocytes/Leukocyt es Auto (Bld) [Pure # fraction] 0.3 E9/L Low 1.0-4.0 [facility] Comment on above: Order Comment: Order Added by Discern Expert. Performed By: #### 2 766248, 7628961, 7766372, 31037715, 4487631 ####[address] [address] Monocytes/100 WBC (Bld) 4.8 % Normal 4.0-14.0 [facility] Comment on above: Order Comment: Order Added by Amol Expert. Performed By: #### 2 754987, 2750207, 3996287, 97375876, 3717025 ####[address] [place] [address] Monocytes/Leukocytes Auto (Bld) [Pure # fraction] 0.8 E9/L Normal 0.2-1.0 [facility] Comment on above: Order Comment: Order Added by Discern Expert. Performed By: #### 2 703535, 3172378, 4073206, 77153781, 8465381 ####[address] [place] [address] Neutrophils/100 WBC (Bld) 92.9 % High 36.0-75.0 [facility] Comment on above: Order Comment: Order Added by Discern Expert. Performed By: #### 2 062687, 1527765, 6441493, 50189015, 9643448 ####[address] [place] [address] Neutrophils/Leukocyt es Auto (Bld) [Pure # fraction] 14.9 E9/L High 2.0-7.5 [facility] Comment on above: Order Comment: Order Added by Discern Expert. Performed By: #### 2 611643, 8988774, 8723186, 06533426, 0800776 ####[facility] [address] [place] [address] BMPon 05-02-2023 Potassium [Moles/Vol] 5.7 mmol/L High 3.5-5.3 [facility] Comment on above: Result Comment: 'Spe cimen hemolyzed. Result may be affected. Redraw is recommended.' Performed By: #### 2 565244, 2708457, 4397820, 51812518, 6253700 ####[facility] [address] [place] [address] Anion gap [Moles/Vol] 11 mmol/L Normal 6-16 [facility] Comment on above: Performed By: #### 2 732388, 2963076, 9153697, 07326194, 8232206 ####[facility] [address] [place] [address] Calcium [Mass/Vol] 7.2 mg/dL Low 8.9-11.1 [facility] Comment on above: Performed By: #### 2 079012, 4757251, 1162467, 06297887, 4863955 ####[facility] [address] [address] Chloride [Moles/Vol] 100 mmol/L Low 101-111 [facility] Comment on above: Performed By: #### 2 690626, 4463209, 8273777, 46168776, 1405862 ####[facility] [address] [facility] [place] [address] CO2 [Moles/Vol] 28 mmol/L Normal 21-31 [facility] Comment on above: Performed By: #### 2 604395, 8652171, 2781202, 12847219, 2715455 ####[facility] [address] [place] [address] Creatinine [Mass/Vol] 3.7 mg/dL High 0.5-1.3 [facility] Comment on above: Performed By: #### 2 769831, 5094123, 2513404, 30936949, 6243469 ####[facility] [address] [place] [address] Glucose [Mass/Vol] 200 mg/dL High 55-199 [facility] Comment on above: Result Comment: If t his glucose result represents a fasting glucose, interpretation should refer to the following reference range: 55-99 mg/dL Performed By: #### 2 080698, 1273373, 4170474, 89384422, 5117672 ####[facility] [address] [place] [address] Sodium [Moles/Vol] 133 mmol/L Low 135-145 [facility] Comment on above: Performed By: #### 2 582255, 8332072, 1914875, 92367968, 9161523 ####[facility] [address] [place] [address] Urea nitrogen [Mass/Vol] 79 mg/dL High 5-21 [facility] Comment on above: Performed By: #### 2 286937, 5677094, 4647375, 35979993, 0168012 ####[facility] [address] [place] [address] Urea nitrogen/Creatinine [Mass ratio] 21 No Units High 10-20 [facility] Comment on above: Performed By: #### 2 112202, 0698996, 3796401, 08723153, 7872443 ####[facility] [address] CBC w/ Auto Diffon Erythrocyte distribution width (RBC) [Ratio] 15.3 % High 10.9-14.2 [facility] Comment on above: Performed By: #### 2 302720, 4864191, 4980631, 86430007, 5695868 ####[address] [place] [address] Hematocrit (Bld) [Volume fraction] 36.1 % Low 37.7-49.0 [facility] Comment on above: Performed By: #### 2 914630, 9037011, 9310198, 17332963, 5251970 ####[facility] [address] [place] [address] Hemoglobin (Bld) [Mass/Vol] 11.8 g/dL Low 13.5-17.5 [facility] Comment on above: Performed By: #### 2 599912, 1590608, 1495740, 42351225, 1650813 ####[facility] [address] [place] [address] MCH (RBC) [Entitic mass] 27.4 pg Normal 27.0-34.0 [facility] Comment on above: Performed By: #### 2 467658, 6585025, 9057333, 56367628, 2778764 ####[facility] [address] [place] [address] MCHC (RBC) [Mass/Vol] 32.8 g/dL Normal 31.4-36.0 [facility] Comment on above: Performed By: #### 2 540313, 4575693, 7961737, 49428466, 3475817 ####[facility] [address] [place] [address] MCV (RBC) [Entitic vol] 83.7 fL Normal 80.0-100.0 [facility] Comment on above: Performed By: #### 2 289870, 3683179, 0544730, 60838960, 4810358 ####[address] [place] [address] Platelet mean volume (Bld) [Entitic vol] 8.3 fL Normal 6.4-10.8 [facility] Comment on above: Performed By: #### 2 153377, 0446548, 8008933, 80349456, 6963507 ####[address] [address] [place] [address] Platelets (Bld) [#/Vol] 300.0 E9/L Normal 150.0-500.0 [facility] Comment on above: Performed By: #### 2 300286, 2156183, 0997646, 11665045, 2918415 ####[address] [address] RBC (Bld) [#/Vol] 4.3 E12/L Normal 4.3-5.9 [facility] Comment on above: Performed By: #### 2 517013, 0108259, 4666695, 15204295, 1205507 ####[address] [place] [address] WBC corrected for nucl RBC Auto (Bld) [#/Vol] 16.0 E9/L High 4.0-11.0 [facility] Comment on above: Result Comment: Slid e reviewed by cmk. Performed By: #### 2 564936, 9073851, 2008334, 27065361, 5009749 ####[address] [place] [address] Capillary Glucose POC 10- Glucose [Mass/Vol] 274 mg/dL High 55-99 [facility] Comment on above: Result Comment: Nellie jung RN/ Performed By: #### 2 [id number] ####[facility] [address] [place] [address] Consultation Noteon 05-02-20 Consultation Note Normal [facility] Comment on above: Result Comment: Elec tronically Signed By: Kitty RIVERA, Raymond\.br\Date and Time Signed: 05/02/23 12:19 EDT Consultation Note Normal [facility] Comment on above: Result Comment: Elec tronically Signed By: Marylou RIVERA, César Paula\.br\Date and Time Signed: 05/02/23 11:32 EDT Discharge Note-Nursingon Discharge Note-Nursing Normal [facility] ED Clinical Summaryon 2022 ED Clinical Summary Normal [facility] ED Patient Education Noteon 05-02-2023 ED Patient Education Note Normal [facility] ED Patient Summaryon 023 ED Patient Summary Normal [facility] Inpatient Clinical Summaryon 05-02-2023 Inpatient Clinical Summary Normal [facility] Inpatient Patient Summaryon 05-02-2023 Inpatient Patient Summary Normal [facility] Interdisciplinary Note - Omar e Manageron 05-02-2023 Interdisciplinary Note - Electrical Cad Designer Normal [facility] Comment on above: Result Comment: Elec tronically Signed By: Amarilis ABEL, Tierra\.br\Date and Time Signed: 05/02/23 11:00 EDT Monitor Recordon 05-02-2023 Monitor Record [id number]#1.00TIFF Normal [facility] Monitor Record [id number]#1.00TIFF [facility] Monitor Record [id number]#1.00TIFF [facility] PTon 05-02-2023 INR Coag (PPP) [Relative time] 1.3 {INR} Invalid Interpretation Code [facility] Comment on above: Result Comment: INR results are specifically intended to assess patients stabilized on long-term Anticoagulation therapy suggested INR?s ?Less Intensive Anticoagulation? 2.0 ? 3.0Conventional Range 3.0 ? 4.5 Performed By: #### 2 059884, 0221974, 7134231, 51551317, 3731893 ####[facility] [address] [place] [address] PT Coag (PPP) [Time] 14.9 second(s) High 9.4-12.5 [facility] Comment on above: Result Comment: 15 d ays - 4 weeks 1 - 5 months 6 -11 months 1 ? 5 years 6 ? 10 years 11 -17 years Mean: 11.2 (9.5 ? 12.6) Mean: 11.0 (9.7 ? 12.8) Mean: 11.0 (9.8 ? 13.0) Mean: 11.3 (9.9 ? 13.4) Mean: 11.7 (10.0 ? 14.6) Mean: 11.8 (10.0 - 14.1) Pediatric Reference ranges were obtained from a study by William Zhang et al. prepared from 1437 samples obtained at 7 different centers using the same coagulation reagent and instrumentation as [facility]. Currently there are no coagulation studies available worldwide for children to 14 days, and no normal ranges. Performed By: #### 2 073074, 3770245, 8656903, 31445841, 2772671 ####[facility] [address] [place] [address] Potassiumon 05-02-2023 Potassium [Moles/Vol] 4.4 mmol/L Normal 3.5-5.3 [facility] Comment on above: Performed By: #### 2 938157 ####[facility] [address] [place] [address] Progress Note - Pharmacyon 1 Progress Note - Pharmacy Normal [facility] Progress Note-Physicianon Progress Note-Physician Normal [facility] Comment on above: Result Comment: Elec tronically Signed By: Analia RIVERA, Arnold GOliva\.br\Date and Time Signed: 05/02/23 14:10 EDT Progress Note-Physician Normal [facility] Comment on above: Result Comment: Elec tronically Signed By: RASHAD RIVERA, Rema\.br\Date and Time Signed: 05/02/23 09:28 EDT eGFRon 05-02-2023 GFR/1.73 sq M.predicted among non-blacks MDRD (S/P/Bld) [Vol rate/Area] 18 mL/min/1.73 m2 Low >=59 [facility] Comment on above: Order Comment: Order added by Discern Expert. Result Comment: Final Expense Agent geo kidney disease could be indicated at eGFR's of less than 60 mL/min/1.73m2. Kidney failure is indicated at less than 15 mL/min/1.73m2. Performed By: #### 2 934238, 6500364, 9317458, 15302148, 8006047 ####[facility] [address] [place] [address] Auto Diffon 05-01-2023 Basophils/100 WBC (Bld) 0.3 % Normal 0.0-2.0 [facility] Comment on above: Order Comment: Order Added by Discern Expert. Performed By: #### 1 8455625, 5054186, 0724655 ####[facility] [address] [place] [address] Basophils/Leukocytes Auto (Bld) [Pure # fraction] 0.0 E9/L Normal 0.0-0.2 [facility] Comment on above: Order Comment: Order Added by Discern Expert. Performed By: #### 1 0920497, 2454524, 2330473 ####[facility] [address] [place] [address] Eosinophils/100 WBC (Bld) 0.0 % Normal 0.0-8.0 [facility] Comment on above: Order Comment: Order Added by Discern Expert. Performed By: #### 1 4362486, 9369612, 9647303 ####[facility] [address] [place] [address] Eosinophils/Leukocyt es Auto (Bld) [Pure # fraction] 0.0 E9/L Normal 0.0-0.5 [facility] Comment on above: Order Comment: Order Added by Amol Expert. Performed By: #### 1 5031748, 0591223, 7016526 ####[address] [address] Lymphocytes/100 WBC (Bld) 1.9 % Low 14.0-50.0 [facility] Comment on above: Order Comment: Order Added by Amol Expert. Performed By: #### 1 1014732, 8398183, 8513031 ####[address] [address] Lymphocytes/Leukocyt es Auto (Bld) [Pure # fraction] 0.2 E9/L Low 1.0-4.0 [facility] Comment on above: Order Comment: Order Added by Amol Expert. Performed By: #### 1 6307062, 9964534, 5069177 ####[address] [address] Monocytes/100 WBC (Bld) 4.2 % Normal 4.0-14.0 [facility] Comment on above: Order Comment: Order Added by Amol Expert. Performed By: #### 1 6281023, 3934365, 2043761 ####[address] [address] Monocytes/Leukocytes Auto (Bld) [Pure # fraction] 0.5 E9/L Normal 0.2-1.0 [facility] Comment on above: Order Comment: Order Added by Amol Expert. Performed By: #### 1 5312987, 4835740, 5557160 ####[address] [address] Neutrophils/100 WBC (Bld) 93.6 % High 36.0-75.0 [facility] Comment on above: Order Comment: Order Added by Amol Expert. Performed By: #### 1 6577324, 6431739, 2366946 ####[address] [address] Neutrophils/Leukocyt es Auto (Bld) [Pure # fraction] 11.7 E9/L High 2.0-7.5 [facility] Comment on above: Order Comment: Order Added by Discern Expert. Performed By: #### 1 1931681, 3553353, 7445125 ####[address] [place] [address] CBC w/ Auto Diffon 3 Erythrocyte distribution width (RBC) [Ratio] 15.1 % High 10.9-14.2 [facility] Comment on above: Performed By: #### 1 2894208, 8334241, 5902415 ####[address] [address] Hematocrit (Bld) [Volume fraction] 36.6 % Low 37.7-49.0 [facility] Comment on above: Performed By: #### 1 0104712, 4194587, 3725828 ####[address] [address] Hemoglobin (Bld) [Mass/Vol] 12.0 g/dL Low 13.5-17.5 [facility] Comment on above: Performed By: #### 1 4745987, 5409833, 4896563 ####[address] [address] MCH (RBC) [Entitic mass] 27.6 pg Normal 27.0-34.0 [facility] Comment on above: Performed By: #### 1 8320705, 7277111, 5802723 ####[address] [address] MCHC (RBC) [Mass/Vol] 32.8 g/dL Normal 31.4-36.0 [facility] Comment on above: Performed By: #### 1 4857005, 6491261, 7353610 ####[address] [address] MCV (RBC) [Entitic vol] 84.1 fL Normal 80.0-100.0 [facility] Comment on above: Performed By: #### 1 9770712, 8628226, 0944186 ####[address] [place] [address] Platelet mean volume (Bld) [Entitic vol] 8.3 fL Normal 6.4-10.8 [facility] Comment on above: Performed By: #### 1 5331916, 9840998, 3871839 ####[facility] [address] [place] [address] Platelets (Bld) [#/Vol] 301.0 E9/L Normal 150.0-500.0 [facility] Comment on above: Performed By: #### 1 7455657, 9489394, 2529921 ####[facility] [address] [place] [address] RBC (Bld) [#/Vol] 4.4 E12/L Normal 4.3-5.9 [facility] Comment on above: Performed By: #### 1 0619436, 0756908, 3250209 ####[facility] [address] [place] [address] WBC corrected for nucl RBC Auto (Bld) [#/Vol] 12.5 E9/L High 4.0-11.0 [facility] Comment on above: Result Comment: Slid e reviewed by MARIO. Performed By: #### 1 7776404, 6742464, 6009216 ####[facility] [address] [place] [address] Consultation Noteon 05-01-20 Consultation Note Normal [facility] Comment on above: Result Comment: Elec tronically Signed By: Alexandra Mcrae PA-C, Ailyn Murillo\.br\Date and Time Signed: 05/01/23 15:52 EDT Interdisciplinary Note - Omar e Manageron 05-01-2023 Interdisciplinary Note - Electrical Cad Designer Normal [facility] Comment on above: Result Comment: Elec tronically Signed By: Tierra Olmos RN\.br\Date and Time Signed: 05/01/23 10:54 EDT Interdisciplinary Note - Jacob n 05-01-2023 Interdisciplinary Note - OT Normal [facility] Interdisciplinary Note - PTo n 05-01-2023 Interdisciplinary Note - PT Normal [facility] Message from Medicareon 04-22 Message from Medicare [id number]#1.00TIF F Normal [facility] Monitor Recordon 05-01-2023 Monitor Record [id number]#1.00TIFF Normal [facility] Monitor Record [id number] Normal [facility] Monitor Record [id number]#1.00TIFF Normal [facility] PT & PTTon 05-01-2023 aPTT Coag (PPP) [Time] 32.7 second(s) Normal 25.1-36.5 [facility] Comment on above: Result Comment: Para meter 15 days - 4 weeks 1 - 5 months 6 - 11 months 1 - 5 years 6 - 10 years 11 - 17 years PTT Mean: 35.4 (27.6-45.6) Mean: 33.5 (24.8-40.7) Mean: 32.4 (25.1-40.7) Mean: 31.6 (24.0-39.2) Mean: 31.6 (26.9-38.7) Mean: 31.0 (24.6-38.4) Pediatric Reference ranges were obtained from a study by William Zhang et al. prepared from 1437 samples obtained at 7 different centers using the same coagulation reagent and instrumentation as [facility]. Currently there are no coagulation studies available worldwide for children to 14 days, and no normal ranges. Heparin therapeutic range (represented by Anti-Factor Xa activity of 0.2 - 0.4 U/mL) corresponds to PTT of 56.6 - 109.0 sec. Performed By: #### 1 9401943, 4111688, 3211539 ####[facility] [address] [place] [address] INR Coag (PPP) [Relative time] 1.3 {INR} Invalid Interpretation Code [facility] Comment on above: Result Comment: INR results are specifically intended to assess patients stabilized on long-term Anticoagulation therapy suggested INR?s ?Less Intensive Anticoagulation? 2.0 ? 3.0Conventional Range 3.0 ? 4.5 Performed By: #### 1 9820100, 0114584, 7026020 ####[facility] [address] [place] [address] PT Coag (PPP) [Time] 14.2 second(s) High 9.4-12.5 [facility] Comment on above: Result Comment: 15 d ays - 4 weeks 1 - 5 months 6 -11 months 1- 5 years 6-10 years 11 -17 years Mean: 11.2 (9.5-12.6) Mean: 11.0 (9.7-12.8) Mean: 11.0 (9.8-13.0) Mean: 11.3 (9.9-13.4) Mean: 11.7 (10.0-14.6) Mean: 11.8 (10.0 - 14.1) Pediatric Reference ranges were obtained from a study by cierra Vazquez al. prepared from 1437 samples obtained at 7 different centers using the same coagulation reagent and instrumentation as [facility]. Currently there are no coagulation studies available worldwide for children to 14 days, and no normal ranges. Performed By: #### 1 9260614, 7695935, 3209667 ####[facility] [address] [place] [address] Progress Note - Pharmacyon 1 Progress Note - Pharmacy Normal [facility] Progress Note-Nurseon 2022 [facility] Progress Note-Physicianon Progress Note-Physician Normal [facility] Comment on above: Result Comment: Elec tronically Signed By: RASHAD RIVERA, Rema\.br\Date and Time Signed: 05/01/23 10:02 EDT Respiratory Panel by PCRon 1 Adenovirus DNA PARADISE+non-probe Ql (Nph) Not detected Normal [facility] Comment on above: Result Comment: Test ing was performed using nucleic acid amplification including Influenza A, Influenza A H1, Influenza A H3, Influenza B, RSV A, RSV B, Adenovirus, Human Metapneumovirus, Parainfluenza 1,2,3, and 4, Rhinovirus, Bordetella parapertussis/bronchiseptica, Bordetella holmesii, and Bordetella pertussis. Performed By: #### 1 [id number] ####[address] [place] [address] B. parapertussis DNA PARADISE+probe Ql (Upper resp) Not detected Normal Not Detected [facility] Comment on above: Performed By: #### 1 [id number] ####[address] [address] B. pertussis DNA PARADISE+probe Ql (Upper resp) Not detected Normal Not Detected [facility] Comment on above: Performed By: #### 1 [id number] ####[address] [address] FLUAV H1 RNA PARADISE+non-probe Ql (Nph) Not detected Normal [facility] Comment on above: Performed By: #### 1 [id number] ####[address] [address] FLUAV H3 RNA PARADISE+non-probe Ql (Nph) Not detected Normal [facility] Comment on above: Performed By: #### 1 [id number] ####[address] [address] FLUAV RNA PARADISE+non-probe Ql (Nph) Not detected Normal [facility] Comment on above: Performed By: #### 1 [id number] ####[address] [address] FLUBV RNA PARADISE+non-probe Ql (Nph) Not detected Normal [facility] Comment on above: Performed By: #### 1 [id number] ####[address] [address] Human Metapneumovirus Not detected Normal [facility] Comment on above: Result Comment: This test result should be correlated with clinical presentations and medical history by a healthcare provider to determine its clinical significance. Performed By: #### 1 [id number] ####[address] [facility] [place] [address] Parainfluenza virus 1 RNA PARADISE+non-probe Ql (Nph) Not detected Normal [facility] Comment on above: Performed By: #### 1 [id number] ####[facility] [address] [facility] [place] [place] [address] Parainfluenza virus 2 RNA PARADISE+non-probe Ql (Nph) Not detected Normal [facility] Comment on above: Performed By: #### 1 [id number] ####[facility] [address] [facility] [place] [address] Parainfluenza virus 3 RNA PARADISE+non-probe Ql (Nph) Not detected Normal [facility] Comment on above: Performed By: #### 1 [id number] ####[address] [facility] [place] [address] Parainfluenza virus 4 RNA PARADISE+non-probe Ql (Nph) Not detected Normal [facility] Comment on above: Performed By: #### 1 [id number] ####[facility] [address] [facility] [place] [address] Resp Panel Intrl QC Pass Normal [facility] Comment on above: Performed By: #### 1 [id number] ####[facility] [address] [facility] [place] [address] Rhinovirus+Enterovir us RNA PARADISE+non-probe Ql (Nph) Detected Abnormal [facility] Comment on above: Performed By: #### 1 [id number] ####[address] [facility] [place] [address] RSV RNA PARADISE+non-probe Ql (Nph) Not detected Normal [facility] Comment on above: Performed By: #### 1 [id number] ####[address] [facility] [place] [address] Auto Diffon 04-30-2023 Basophils/100 WBC (Bld) 0.2 % Normal 0.0-2.0 [facility] Comment on above: Order Comment: Order Added by Discern Expert. Performed By: #### 1 7032095, [id number], 4327093, 5188649, 21562717, 20806924, 8946239, 0927210, 08203375 ####[address] [place] [address] Basophils/Leukocytes Auto (Bld) [Pure # fraction] 0.0 E9/L Normal 0.0-0.2 [facility] Comment on above: Order Comment: Order Added by Discern Expert. Performed By: #### 1 6595143, 2014804693, 2405584, 6469247, 74824408, 20706607, 6612456, 2265832, 20119234 ####[address] [address] Eosinophils/100 WBC (Bld) 0.4 % Normal 0.0-8.0 [facility] Comment on above: Order Comment: Order Added by Discern Expert. Performed By: #### 1 9614852, 0481136963, 9084334, 2758932, 66131971, 76476629, 5891126, 2119101, 77114565 ####[address] [address] Eosinophils/Leukocyt es Auto (Bld) [Pure # fraction] 0.1 E9/L Normal 0.0-0.5 [facility] Comment on above: Order Comment: Order Added by Discern Expert. Performed By: #### 1 1389930, 0025634489, 0461229, 4827153, 25534195, 32227328, 3844150, 6306422, 31426192 ####[address] [place] [address] Lymphocytes/100 WBC (Bld) 21.6 % Normal 14.0-50.0 [facility] Comment on above: Order Comment: Order Added by Discern Expert. Performed By: #### 1 8664229, 3790907768, 4792242, 6023211, 73409368, 61165335, 2831935, 9591938, 48728535 ####[address] [address] Lymphocytes/Leukocyt es Auto (Bld) [Pure # fraction] 4.6 E9/L High 1.0-4.0 [facility] Comment on above: Order Comment: Order Added by Discern Expert. Performed By: #### 1 5800642, 0951948171, 2238668, 2758709, 84524409, 01999831, 1310122, 6130104, 54871395 ####[address] [place] [address] Monocytes/100 WBC (Bld) 5.1 % Normal 4.0-14.0 [facility] Comment on above: Order Comment: Order Added by Discern Expert. Performed By: #### 1 4343729, 6656744861, 5252821, 4501702, 46075715, 49088404, 9890926, 9939747, 45023217 ####[address] [address] Monocytes/Leukocytes Auto (Bld) [Pure # fraction] 1.1 E9/L High 0.2-1.0 [facility] Comment on above: Order Comment: Order Added by Discern Expert. Performed By: #### 1 2246687, 6319236150, 5226505, 1880152, 20742378, 03467319, 9321325, 2605252, 40054544 ####[address] [place] [address] Neutrophils/100 WBC (Bld) 72.7 % Normal 36.0-75.0 [facility] Comment on above: Order Comment: Order Added by Discern Expert. Performed By: #### 1 6662098, 4978536865, 3412793, 9567562, 56801802, 87879742, 7777819, 7858636, 65476002 ####[address] [place] [address] Neutrophils/Leukocyt es Auto (Bld) [Pure # fraction] 15.4 E9/L High 2.0-7.5 [facility] Comment on above: Order Comment: Order Added by Discern Expert. Performed By: #### 1 7836841, 3669796464, 2075595, 3684377, 35721461, 95653104, 4619387, 7701637, 58691068 ####[facility] [address] [place] [address] BMPon 04-30-2023 Creatinine [Mass/Vol] 3.4 mg/dL High 0.5-1.3 [facility] Comment on above: Performed By: #### 1 7448741, [id number], 5909473, 2280951, 12050626, 88225954, 3245391, 1793066, 42046798 ####[facility] [address] [place] [address] Urea nitrogen [Mass/Vol] 57 mg/dL High 5-21 [facility] Comment on above: Performed By: #### 1 7465751, 0825244301, 0552755, 1438651, 96998735, 98821736, 1279896, 6166574, 67522096 ####[facility] [address] [place] [address] Urea nitrogen/Creatinine [Mass ratio] 17 No Units Normal 10-20 [facility] Comment on above: Performed By: #### 1 1769154, 8589710439, 1120470, 8842635, 23286656, 98917474, 7762623, 7276679, 82942334 ####[facility] [address] [place] [address] Anion gap [Moles/Vol] 15 mmol/L Normal 6-16 [facility] Comment on above: Performed By: #### 1 6301382, 8976956354, 8633919, 1807324, 70261503, 41790166, 7546392, 3183970, 87525855 ####[facility] [address] [place] [address] Calcium [Mass/Vol] 7.1 mg/dL Low 8.9-11.1 [facility] Comment on above: Performed By: #### 1 9952958, 5361348129, 1616795, 1995246, 62000415, 39073889, 3323693, 7460783, 43947420 ####[facility] [address] [place] [address] Chloride [Moles/Vol] 99 mmol/L Low 101-111 [facility] Comment on above: Performed By: #### 1 8957273, 3367853285, 1778600, 7710695, 40183841, 28861175, 7349294, 3118700, 06283603 ####[facility] [address] [place] [address] CO2 [Moles/Vol] 26 mmol/L Normal 21-31 [facility] Comment on above: Performed By: #### 1 7582710, 5018250049, 4600238, 0483691, 07452161, 76651610, 4503810, 2678342, 27879632 ####[facility] [address] [place] [address] Glucose [Mass/Vol] 129 mg/dL Normal 55-199 [facility] [facility] Comment on above: Result Comment: If t his glucose result represents a fasting glucose, interpretation should refer to the following reference range: 55-99 mg/dL Performed By: #### 1 0974812, [id number], 3933177, 9860137, 25352753, 26804593, 1439131, 3440975, 52296679 ####[facility] [address] [place] [address] Potassium [Moles/Vol] 4.7 mmol/L Normal 3.5-5.3 [facility] Comment on above: Performed By: #### 1 8459186, 9686185111, 9195301, 1672686, 84398912, 31331921, 9762282, 5678456, 38486840 ####[facility] [address] [place] [address] Sodium [Moles/Vol] 135 mmol/L Normal 135-145 [facility] Comment on above: Performed By: #### 1 3995745, 3638391191, 3834812, 3558391, 05601891, 16443698, 2016495, 7438900, 94371928 ####[facility] [address] [place] [address] CBC w/ Auto Diffon 3 Erythrocyte distribution width (RBC) [Ratio] 15.3 % High 10.9-14.2 [facility] Comment on above: Performed By: #### 1 9483754, 2454708061, 5502076, 1117394, 18360627, 73095418, 5057446, 0999816, 06026859 ####[facility] [address] [place] [address] Hematocrit (Bld) [Volume fraction] 36.9 % Low 37.7-49.0 [facility] Comment on above: Performed By: #### 1 8621062, 9995897157, 4751953, 2540857, 30678028, 43616382, 7740791, 2340464, 47498063 ####[facility] [address] [place] [address] Hemoglobin (Bld) [Mass/Vol] 12.1 g/dL Low 13.5-17.5 [facility] Comment on above: Performed By: #### 1 5765091, 5021534445, 9460451, 7621170, 01504554, 93812721, 1020180, 2189536, 15259511 ####[facility] [address] [place] [address] MCH (RBC) [Entitic mass] 27.5 pg Normal 27.0-34.0 [facility] Comment on above: Performed By: #### 1 1394203, 2063406926, 7252992, 9511352, 15166919, 80723159, 8109616, 4520271, 12827234 ####[facility] [address] [place] [address] MCHC (RBC) [Mass/Vol] 32.9 g/dL Normal 31.4-36.0 [facility] Comment on above: Performed By: #### 1 1187525, 0539756112, 3127395, 4206857, 60015852, 93725355, 9360025, 5739807, 87510878 ####[address] [place] [address] MCV (RBC) [Entitic vol] 83.6 fL Normal 80.0-100.0 [facility] Comment on above: Performed By: #### 1 8043884, 6354754690, 8798409, 8313061, 09159805, 21027908, 6447762, 7335720, 38516950 ####[address] [address] Platelet mean volume (Bld) [Entitic vol] 7.5 fL Normal 6.4-10.8 [facility] Comment on above: Performed By: #### 1 7008084, 6421739236, 4371186, 7842136, 47745447, 20656415, 4485956, 9188899, 35137008 ####[address] [address] Platelets (Bld) [#/Vol] 295.0 E9/L Normal 150.0-500.0 [facility] Comment on above: Performed By: #### 1 0360940, 3624866314, 6622403, 6379038, 92280921, 04845931, 7027096, 3115780, 29009982 ####[address] [address] RBC (Bld) [#/Vol] 4.4 E12/L Normal 4.3-5.9 [facility] Comment on above: Performed By: #### 1 8592008, 7250608742, 7467909, 3987005, 04192384, 23359527, 9262501, 2783945, 96790359 ####[address] [address] WBC corrected for nucl RBC Auto (Bld) [#/Vol] 21.2 E9/L High 4.0-11.0 [facility] Comment on above: Performed By: #### 1 1245414, 6624203636, 2306620, 7449131, 17009767, 59590170, 7976028, 4529644, 50254101 ####[facility] [address] [place] [address] Consent for Treatmenton Consent for Treatment [id number] Normal [facility] ED Note-Physicianon 04-30-20 ED Note-Physician Normal [facility] Comment on above: Result Comment: Elec tronically Signed By: Donald Pollard PA-C\.br\Date and Time Signed: 04/30/23 15:47 EDT\.br\Electronically Co-Signed By: Calderon Long DO\.br\Date and Time Co-Signed: 04/30/23 19:04 EDT Lactic Acidon 04-30-2023 Lactate [Mass/Vol] 1.2 mmol/L Normal 0.5-2.2 [facility] Comment on above: Performed By: #### 1 9032938, 7730268934, 5502362, 8253478, 75861489, 69493215, 5930336, 8889608, 62205231 ####[facility] [address] [place] [address] Morphon 04-30-2023 Jos[place] bodies LM Ql (Bld) Present Normal [facility] Comment on above: Order Comment: Order Added by Discern Expert. Performed By: #### 1 4355381, 0749303936, 4373879, 1635724, 55801980, 54096482, 6691046, 4860659, 24946765 ####[facility] [address] [place] [address] Hypochromia Auto Ql (Bld) Present Normal [facility] Comment on above: Order Comment: Order Added by Discern Expert. Performed By: #### 1 3085072, 6950938992, 2861527, 0833391, 22353947, 73851465, 3645695, 1621882, 27124022 ####[facility] [address] [place] [address] Morphology Mino (Bld) [Interp] See Morphology Normal [facility] Comment on above: Order Comment: Order Added by Discern Expert. Performed By: #### 1 3481001, 5318986037, 5724348, 7690961, 07121600, 74726614, 6325582, 1115189, 29212818 ####[facility] [address] [place] [address] Ovalocytes LM Ql (Bld) Present Normal [facility] Comment on above: Order Comment: Order Added by Discern Expert. Performed By: #### 1 8517821, 6517390953, 7246940, 5695728, 10071323, 19669041, 0185369, 8428680, 46258908 ####[facility] [address] [place] [address] Target cells LM Ql (Bld) Present Normal [facility] Comment on above: Order Comment: Order Added by Discern Expert. Performed By: #### 1 4793664, 7500139105, 3040278, 5385229, 63674195, 42056349, 2809274, 6853637, 57621891 ####[facility] [address] [place] [address] PT & PTTon 04-30-2023 aPTT Coag (PPP) [Time] 31.8 second(s) Normal 25.1-36.5 [facility] Comment on above: Result Comment: Para meter 15 days - 4 weeks 1 - 5 months 6 - 11 months 1 - 5 years 6 - 10 years 11 - 17 years PTT Mean: 35.4 (27.6-45.6) Mean: 33.5 (24.8-40.7) Mean: 32.4 (25.1-40.7) Mean: 31.6 (24.0-39.2) Mean: 31.6 (26.9-38.7) Mean: 31.0 (24.6-38.4) Pediatric Reference ranges were obtained from a study by cierra Vazquez al. prepared from 1437 samples obtained at 7 different centers using the same coagulation reagent and instrumentation as [facility]. Currently there are no coagulation studies available worldwide for children to 14 days, and no normal ranges. Heparin therapeutic range (represented by Anti-Factor Xa activity of 0.2 - 0.4 U/mL) corresponds to PTT of 56.6 - 109.0 sec. Performed By: #### 1 4457415, 0703125292, 3310661, 2908256, 37374229, 24420196, 4373976, 4802053, 92203532 ####[facility] [address] [place] [address] INR Coag (PPP) [Relative time] 1.2 {INR} Invalid Interpretation Code [facility] Comment on above: Result Comment: INR results are specifically intended to assess patients stabilized on long-term Anticoagulation therapy suggested INR?s ?Less Intensive Anticoagulation? 2.0 ? 3.0Conventional Range 3.0 ? 4.5 Performed By: #### 1 4979722, 9632172396, 0030538, 9454658, 05674308, 84766206, 4637318, 7016354, 60893969 ####[facility] [address] [place] [address] PT Coag (PPP) [Time] 13.4 second(s) High 9.4-12.5 [facility] Comment on above: Result Comment: 15 d ays - 4 weeks 1 - 5 months 6 -11 months 1 ? 5 years 6 ? 10 years 11 -17 years Mean: 11.2 (9.5 ? 12.6) Mean: 11.0 (9.7 ? 12.8) Mean: 11.0 (9.8 ? 13.0) Mean: 11.3 (9.9 ? 13.4) Mean: 11.7 (10.0 ? 14.6) Mean: 11.8 (10.0 - 14.1) Pediatric Reference ranges were obtained from a study by cierra Vazquez al. prepared from 1437 samples obtained at 7 different centers using the same coagulation reagent and instrumentation as [facility]. Currently there are no coagulation studies available worldwide for children to 14 days, and no normal ranges. Performed By: #### 1 3853416, 8357696849, 4228429, 6450188, 98383447, 13947386, 3345002, 0576746, 02327258 ####[facility] [address] [place] [address] Procalcitoninon 04-30-2023 Procalcitonin .17 ng/mL Normal .00-.50 [facility] Comment on above: Result Comment: <0.5 ng/mL Low risk of severe sepsis and/or shock>2.0 ng/mL High risk of severe sepsis and/or shockConcentrations under 0.5 ng/mL do not exclude local infections or systemic infections in their initial stages (e.g.. under six hours from onset of illness). PCT concentrations between 0.5 and 2.0 ng/mL should be interpreted with consideration of the patient's history. In this range, it is recommended to retest PCT within 6 to 24 hours. Performed By: #### 1 7399415, 5657207420, 3463947, 8637129, 59687542, 57935984, 3598406, 0448043, 77051162 ####[facility] [address] [place] [address] Progress Note - Pharmacyon 1 Progress Note - Pharmacy Normal [facility] Progress Note-Nurseon 2022 Progress Note-Nurse Normal [facility] Troponin 0 Hr.on 04-30-2023 Troponin I.cardiac [Mass/Vol] 64.40 pg/mL Abnormal 15.90-38.40 [facility] Comment on above: Result Comment: Crit ical Result I_hsTnI:64.4 Called to DOTTY ALATORRE at ER by CE FERRIS and read back for confirmation at 04/30/2023 16:05:19\Critical Result verified by repeat analysisThe 95% CI (Confidence Interval) PPV (Positive Predictive Value) for myocardial infarction in females is 38 pg/mL, in males 51 pg/mL. The results should be used in conjunction with clinical conditions of myocardial infarction.(Access High Sensitivity Troponin I Instructions For Use, Darío [place], February 2018) Performed By: #### 1 5111266, 5670713401, 6929678, 5577735, 27814396, 90045906, 9930320, 0956807, 97186800 ####[facility] [address] [place] [address] Troponin 3 Hr.on 04-30-2023 Troponin I.cardiac [Mass/Vol] 66.30 pg/mL Abnormal 15.90-38.40 [facility] Comment on above: Result Comment: Crit ical Result I_hsTnI:66.3 Called to FREDA ALLEN at 3S by CE FERIRS and read back for confirmation at 04/30/2023 18:19:19\Critical Result verified by previous resultThe 95% CI (Confidence Interval) PPV (Positive Predictive Value) for myocardial infarction in females is 38 pg/mL, in males 51 pg/mL. The results should be used in conjunction with clinical conditions of myocardial infarction.(Access High Sensitivity Troponin I Instructions For Use, [place], February 2018) Performed By: #### 1 [id number] ####[address] [place] [address] Troponin 6 Hr.on 04-30-2023 Troponin I.cardiac [Mass/Vol] 52.20 pg/mL Abnormal 15.90-38.40 [facility] Comment on above: Result Comment: Crit ical Result I_hsTnI:52.2 Called to ROCHELLE JURADO at 3S by CE FERRIS and read back for confirmation at 04/30/2023 21:00:35\Critical Result verified by repeat analysisThe 95% CI (Confidence Interval) PPV (Positive Predictive Value) for myocardial infarction in females is 38 pg/mL, in males 51 pg/mL. The results should be used in conjunction with clinical conditions of myocardial infarction.(Access High Sensitivity Troponin I Instructions For Use, [place], February 2018) Performed By: #### 1 7504869 ####[address] [address] Troponin 9 Hr.on 04-30-2023 Troponin I.cardiac [Mass/Vol] 52.10 pg/mL Abnormal 15.90-38.40 [facility] Comment on above: Result Comment: Crit ical Result verified by previous result\ Critical Result I_hsTnI:52.1 Called to ROCHELLE MCKEON at 3S by HARJEET LOPEZ and read back for confirmation at 04/30/2023 23:58:10The 95% CI (Confidence Interval) PPV (Positive Predictive Value) for myocardial infarction in females is 38 pg/mL, in males 51 pg/mL. The results should be used in conjunction with clinical conditions of myocardial infarction.(Access High Sensitivity Troponin I Instructions For Use, Darío [place], February 2018) Performed By: #### 1 8152454 ####[facility] [address] [place] [address] XR Chest Single Viewon 04-30 XR Chest Single View Normal [facility] eGFRon 04-30-2023 GFR/1.73 sq M.predicted among non-blacks MDRD (S/P/Bld) [Vol rate/Area] 20 mL/min/1.73 m2 Low >=59 [facility] Comment on above: Order Comment: Order added by Discern Expert. Result Comment: Final Expense Agent geo kidney disease could be indicated at eGFR's of less than 60 mL/min/1.73m2. Kidney failure is indicated at less than 15 mL/min/1.73m2. Performed By: #### 1 6222332, 4088906378, 6369811, 1309545, 04844068, 26003751, 7433507, 4738114, 13007649 ####[facility] [address] [place] [address] Discharge Instructionson Discharge Instructions [id number]:12 7 Normal [facility] ED Clinical Summaryon 2022 ED Clinical Summary Normal [facility] ED Note-Nursingon 04-21-2023 ED Note-Nursing pt given d/c instruc tions and educated on importance of follow up. pt educated on new medication. pt verbalized understanding of instructions and readiness for d/c. pt walked self ambulatory to waiting room in stable condition. Normal [facility] ED Note-Nursing Normal [facility] ED Patient Education Noteon 04-21-2023 ED Patient Education Note Normal [facility] ED Patient Summaryon 023 ED Patient Summary Normal [facility] Monitor Recordon 04-21-2023 Monitor Record [id number]#[id number]:1 27 Normal [facility] Physician Orderon 04-21-2023 Physician Order [id number]#[id number]:12 7 Normal [facility] XR Chest Single Viewon 04-21 XR Chest Single View Normal [facility] Auto Diffon 04-20-2023 Basophils/100 WBC (Bld) 1.1 % Normal 0.0-2.0 [facility] Comment on above: Order Comment: Order Added by Discern Expert. Performed By: #### 1 1846852, 7861358, 25035030, 6823534, 42809324, 44106649, 2003726 ####[facility] [address] [place] [address] Basophils/Leukocytes Auto (Bld) [Pure # fraction] 0.1 E9/L Normal 0.0-0.2 [facility] Comment on above: Order Comment: Order Added by Discern Expert. Performed By: #### 1 3516039, 4119351, 94795184, 1199185, 64263030, 70111271, 1477007 ####[facility] [address] [place] [address] Eosinophils/100 WBC (Bld) 3.0 % Normal 0.0-8.0 [facility] Comment on above: Order Comment: Order Added by Discern Expert. Performed By: #### 1 6387617, 1822686, 50858889, 4485506, 16998571, 14887625, 1934252 ####[facility] [address] [place] [address] Eosinophils/Leukocyt es Auto (Bld) [Pure # fraction] 0.2 E9/L Normal 0.0-0.5 [facility] Comment on above: Order Comment: Order Added by Discern Expert. Performed By: #### 1 4352754, 4261839, 95481627, 7856177, 14249450, 44198984, 3379910 ####[address] [place] [address] Lymphocytes/100 WBC (Bld) 18.0 % Normal 14.0-50.0 [facility] Comment on above: Order Comment: Order Added by Amol Expert. Performed By: #### 1 4170831, 9371883, 34864009, 9732130, 73611419, 51970291, 2174905 ####[address] [place] [address] Lymphocytes/Leukocyt es Auto (Bld) [Pure # fraction] 1.3 E9/L Normal 1.0-4.0 [facility] Comment on above: Order Comment: Order Added by Amol Expert. Performed By: #### 1 2834575, 8820863, 84280280, 2978589, 75062953, 20822095, 1133161 ####[address] [place] [address] Monocytes/100 WBC (Bld) 9.4 % Normal 4.0-14.0 [facility] Comment on above: Order Comment: Order Added by Amol Expert. Performed By: #### 1 0243554, 1971048, 60286343, 8860098, 66204871, 24822507, 8173256 ####[address] [place] [address] Monocytes/Leukocytes Auto (Bld) [Pure # fraction] 0.7 E9/L Normal 0.2-1.0 [facility] Comment on above: Order Comment: Order Added by Amol Expert. Performed By: #### 1 7096103, 5918182, 70390250, 0998219, 14899527, 39081548, 4121054 ####[address] [place] [address] Neutrophils/100 WBC (Bld) 68.5 % Normal 36.0-75.0 [facility] Comment on above: Order Comment: Order Added by Discern Expert. Performed By: #### 1 5540294, 3242803, 12556253, 7944684, 99080745, 49758841, 2644104 ####[facility] [address] [place] [address] Neutrophils/Leukocyt es Auto (Bld) [Pure # fraction] 4.9 E9/L Normal 2.0-7.5 [facility] Comment on above: Order Comment: Order Added by Discern Expert. Performed By: #### 1 0979388, 8375444, 58449242, 1213434, 21696719, 82122415, 3405487 ####[facility] [address] [place] [address] BMPon 04-20-2023 Creatinine [Mass/Vol] 3.1 mg/dL High 0.5-1.3 [facility] Comment on above: Performed By: #### 1 3916812, 0648131, 82991975, 8028701, 88506674, 86626469, 4904923 ####[facility] [address] [place] [address] Urea nitrogen [Mass/Vol] 37 mg/dL High 5-21 [facility] Comment on above: Performed By: #### 1 5220672, 0324939, 71143221, 4051886, 28725771, 57247507, 4736417 ####[facility] [address] [place] [address] Urea nitrogen/Creatinine [Mass ratio] 12 No Units Normal 10-20 [facility] Comment on above: Performed By: #### 1 3874784, 6798725, 79148274, 3567106, 23870849, 19491655, 7633190 ####[facility] [address] [place] [address] Anion gap [Moles/Vol] 11 mmol/L Normal 6-16 [facility] Comment on above: Performed By: #### 1 0571284, 5525762, 93006751, 9899610, 27927815, 84182813, 8673824 ####[facility] [address] [place] [address] Calcium [Mass/Vol] 7.8 mg/dL Low 8.9-11.1 [facility] Comment on above: Performed By: #### 1 6838425, 6317645, 88783321, 9449004, 28044495, 41899526, 1699583 ####[facility] [address] [place] [address] Chloride [Moles/Vol] 108 mmol/L Normal 101-111 [facility] Comment on above: Performed By: #### 1 0824064, 2525962, 80824804, 6026299, 30118219, 94826318, 0423814 ####[facility] [address] [place] [address] CO2 [Moles/Vol] 24 mmol/L Normal 21-31 [facility] Comment on above: Performed By: #### 1 2878048, 2527713, 48494710, 9823852, 93891494, 62759678, 4601447 ####[facility] [address] [place] [address] Glucose [Mass/Vol] 135 mg/dL Normal 55-199 [facility] Comment on above: Result Comment: If t his glucose result represents a fasting glucose, interpretation should refer to the following reference range: 55-99 mg/dL Performed By: #### 1 1249615, 4825715, 51175991, 1034733, 88704371, 87113936, 5149966 ####[facility] [address] [place] [address] Potassium [Moles/Vol] 4.5 mmol/L Normal 3.5-5.3 [facility] Comment on above: Performed By: #### 1 6854244, 7400770, 38071961, 8806402, 10339156, 42789970, 3107302 ####[facility] [address] [place] [address] Sodium [Moles/Vol] 138 mmol/L Normal 135-145 [facility] Comment on above: Performed By: #### 1 0519297, 1625147, 88022322, 5563562, 54080236, 66005652, 2435409 ####[facility] [address] [place] [address] BNPon 04-20-2023 Natriuretic peptide B (Bld) [Mass/Vol] 1910 pg/mL High 5-80 [facility] Comment on above: Performed By: #### 1 2148130, 6332035, 54353858, 1195852, 83804282, 04062145, 5431533 ####[facility] [address] [place] [address] CBC w/ Auto Diffon Erythrocyte distribution width (RBC) [Ratio] 15.7 % High 10.9-14.2 [facility] Comment on above: Performed By: #### 1 7410009, 9596442, 14186634, 8456795, 73009955, 21364318, 8315364 ####[facility] [address] [place] [address] Hematocrit (Bld) [Volume fraction] 36.4 % Low 37.7-49.0 [facility] Comment on above: Performed By: #### 1 3080101, 2666226, 36279766, 8091209, 48761931, 55864878, 8134393 ####[facility] [address] [place] [address] Hemoglobin (Bld) [Mass/Vol] 12.0 g/dL Low 13.5-17.5 [facility] Comment on above: Performed By: #### 1 4704613, 5110311, 62267637, 1667213, 90147240, 56833393, 8004982 ####[facility] [address] [place] [address] MCH (RBC) [Entitic mass] 27.8 pg Normal 27.0-34.0 [facility] Comment on above: Performed By: #### 1 4690456, 1015931, 59480797, 0410154, 07085244, 64523555, 4550201 ####[facility] [address] [place] [address] MCHC (RBC) [Mass/Vol] 32.9 g/dL Normal 31.4-36.0 [facility] Comment on above: Performed By: #### 1 9787497, 1669544, 85776121, 8118774, 74544830, 12514512, 2287953 ####[facility] [address] [place] [address] MCV (RBC) [Entitic vol] 84.4 fL Normal 80.0-100.0 [facility] Comment on above: Performed By: #### 1 7867715, 5959878, 63180373, 6619467, 97694441, 72952932, 5070800 ####[address] [place] [address] Platelet mean volume (Bld) [Entitic vol] 7.7 fL Normal 6.4-10.8 [facility] Comment on above: Performed By: #### 1 5961288, 4757710, 70716975, 2021244, 25515315, 36928251, 5484737 ####[address] [place] [address] Platelets (Bld) [#/Vol] 195.0 E9/L Normal 150.0-500.0 [facility] Comment on above: Performed By: #### 1 6563686, 0024730, 17972509, 0527373, 37729174, 24105400, 7243265 ####[address] [place] [address] RBC (Bld) [#/Vol] 4.3 E12/L Normal 4.3-5.9 [facility] Comment on above: Performed By: #### 1 5855406, 3555490, 53808915, 5305513, 27004521, 05741503, 3076377 ####[facility] [facility] [address] [place] [address] WBC corrected for nucl RBC Auto (Bld) [#/Vol] 7.1 E9/L Normal 4.0-11.0 [facility] Comment on above: Performed By: #### 1 [id number], [id number], [id number] ####[facility] [address] [place] [address] CHEMISTRYOrdered By: SYSTEM SYSTEM on 04-20-2023 Anion gap [Moles/Vol] 11 mmol/L Normal 6 - 16 mEq/L FT Remisol Calcium [Mass/Vol] 7.8 mg/dL Low 8.9 - 11. 1 mg/dL [facility] Remisol Chloride [Moles/Vol] 108 mmol/L Normal 101 - 1 11 mmol/L [facility] CO2 [Moles/Vol] 24 mmol/L Normal 21 - 31 mmol/L FT Rem[facility] Creatinine [Mass/Vol] 3.1 mg/dL High 0.5 - 1.3 mg/dL [facility] GFR/1.73 sq M.predicted among non-blacks MDRD (S/P/Bld) [Vol rate/Area] 22 mL/min/1.73 m2 Low >=59mL/min/ 1.73 m2 [facility] Chem S Comment on above: Interpretive Data: C hronic kidney disease could be indicated at eGFR's of less than 60 mL/min/1.73m2. Kidney failure is indicated at less than 15 mL/min/1.73m2. Glucose [Mass/Vol] 135 mg/dL Normal 55 - 199 mg/dL [facility] Remisol Comment on above: Interpretive Data: I f this glucose result represents a fasting glucose, interpretation should refer to the following reference range: 55-99 mg/dL Potassium [Moles/Vol] 4.5 mmol/L Normal 3.5 - 5.3 mmol/L [facility] Remisol Sodium [Moles/Vol] 138 mmol/L Normal 135 - 145 mmol/L [facility] Remisol Troponin I.cardiac [Mass/Vol] 25.70 pg/mL Normal 15.90 - 38.40 pg/mL [facility] Comment on above: Interpretive Data: T he 95% CI (Confidence Interval) PPV (Positive Predictive Value) for myocardial infarction in females is 38 pg/mL, in males 51 pg/mL. The results should be used in conjunction with clinical conditions of myocardial infarction. (Access High Sensitivity Troponin I Instructions For Use, Darío [place], February 2018) Urea nitrogen [Mass/Vol] 37 mg/dL High 5 - 21 mg/dL [facility] Urea nitrogen/Creatinine [Mass ratio] 12 mg/mg Normal 10 - 20 [facility] CHEMISTRYOrdered By: Maria Luz Lopez on 04-20-2023 Natriuretic peptide B (Bld) [Mass/Vol] 1910 pg/mL High 5 - 80 pg/mL [facility] HemeManSS COAGULATIONOrdered By: Bon Celis on 04-20-2023 aPTT Coag (PPP) [Time] 31.9 s Normal 25.1 - 36.5 second(s) [facility] Auto Coag Comment on above: Interpretive Data: P yesenia 15 days - 4 weeks 1 - 5 months 6 - 11 months 1 - 5 years 6 - 10 years 11 - 17 years PTT Mean: 35.4 (27.6-45.6) Mean: 33.5 (24.8-40.7) Mean: 32.4 (25.1-40.7) Mean: 31.6 (24.0-39.2) Mean: 31.6 (26.9-38.7) Mean: 31.0 (24.6-38.4) Pediatric Reference ranges were obtained from a study by William Zhang et al. prepared from 1437 samples obtained at 7 different centers using the same coagulation reagent and instrumentation as [facility]. Currently there are no coagulation studies available worldwide for children to 14 days, and no normal ranges. Heparin therapeutic range (represented by Anti-Factor Xa activity of 0.2 - 0.4 U/mL) corresponds to PTT of 56.6 - 109.0 sec. INR Coag (PPP) [Relative time] 1.2 {INR} Invalid Interpretation Code [facility] Auto Coag Comment on above: Interpretive Data: I NR results are specifically intended to assess patients stabilized on long-term Anticoagulation therapy suggested INR s Less Intensive Anticoagulation 2.0 3.0 Conventional Range 3.0 4.5 PT Coag (PPP) [Time] 13.3 s High 9.4 - 1 2.5 second(s) [facility] Auto Coag Comment on above: Interpretive Data: 1 5 days - 4 weeks 1 - 5 months 6 -11 months 1 5 years 6 10 years 11 -17 years Mean: 11.2 (9.5 12.6) Mean: 11.0 (9.7 12.8) Mean: 11.0 (9.8 13.0) Mean: 11.3 (9.9 13.4) Mean: 11.7 (10.0 14.6) Mean: 11.8 (10.0 - 14.1) Pediatric Reference ranges were obtained from a study by William Zhang et al. prepared from 1437 samples obtained at 7 different centers using the same coagulation reagent and instrumentation as [facility]. Currently there are no coagulation studies available worldwide for children to 14 days, and no normal ranges. Consent for Treatmenton 03-24 Consent for Treatment [id number] Normal [facility] ED Note-Physicianon 04-20-20 ED Note-Physician [facility] Comment on above: Result Comment: Elec tronically Signed By: Rasheed RIVERA, Jose\.br\Date and Time Signed: 04/20/23 23:57 EDT HEMATOLOGYOrdered By: SYSTEM SYSTEM on 04-20-2023 Basophils/100 WBC (Bld) 1.1 % Normal 0.0 - 2.0 % [facility] HemeAutoSS Basophils/Leukocytes Auto (Bld) [Pure # fraction] 0.1 E9/L Normal 0.0 - 0.2 E9/L [facility] HemeAutoSS Eosinophils/100 WBC (Bld) 3.0 % Normal 0.0 - 8.0 % [facility] HemeAutoSS Eosinophils/Leukocyt es Auto (Bld) [Pure # fraction] 0.2 E9/L Normal 0.0 - 0.5 E9/L [facility] HemeAutoSS Lymphocytes/100 WBC (Bld) 18.0 % Normal 14.0 - 50.0 % [facility] HemeAutoSS Lymphocytes/Leukocyt es Auto (Bld) [Pure # fraction] 1.3 E9/L Normal 1.0 - 4.0 E9/L [facility] HemeAutoSS Monocytes/100 WBC (Bld) 9.4 % Normal 4.0 - 14.0 % [facility] HemeAutoSS Monocytes/Leukocytes Auto (Bld) [Pure # fraction] 0.7 E9/L Normal 0.2 - 1.0 E9/L [facility] HemeAutoSS Neutrophils/100 WBC (Bld) 68.5 % Normal 36.0 - 75.0 % [facility] HemeAutoSS Neutrophils/Leukocyt es Auto (Bld) [Pure # fraction] 4.9 E9/L Normal 2.0 - 7.5 E9/L [facility] HemeAutoSS HEMATOLOGYOrdered By: Juana Lopez on 04-20-2023 Erythrocyte distribution width (RBC) [Ratio] 15.7 % High 10.9 - 14.2 % [facility] HemeAutoSS Hematocrit (Bld) [Volume fraction] 36.4 % Low 37.7 - 49.0 % [facility] HemeAutoSS Hemoglobin (Bld) [Mass/Vol] 12.0 g/dL Low 13.5 - 17.5 gm/dL [facility] HemeAutoSS MCH (RBC) [Entitic mass] 27.8 pg Normal 27.0 - 34.0 pg [facility] HemeAutoSS MCHC (RBC) [Mass/Vol] 32.9 g/dL Normal 31.4 - 36.0 gm/dL [facility] HemeAutoSS MCV (RBC) [Entitic vol] 84.4 fL Normal 80.0 - 100.0 fL [facility] HemeAutoSS Platelet mean volume (Bld) [Entitic vol] 7.7 fL Normal 6.4 - 10.8 fL [facility] HemeAutoSS Platelets (Bld) [#/Vol] 195.0 E9/L Normal 150.0 - 500.0 E9/L [facility] HemeAutoSS RBC (Bld) [#/Vol] 4.3 E12/L Normal 4.3 - 5.9 E12/L [facility] HemeAutoSS WBC corrected for nucl RBC Auto (Bld) [#/Vol] 7.1 E9/L Normal 4.0 - 11.0 E9/L [facility] HemeAutoSS PT & PTTon 04-20-2023 aPTT Coag (PPP) [Time] 31.9 second(s) Normal 25.1-36.5 [facility] Comment on above: Result Comment: Para meter 15 days - 4 weeks 1 - 5 months 6 - 11 months 1 - 5 years 6 - 10 years 11 - 17 years PTT Mean: 35.4 (27.6-45.6) Mean: 33.5 (24.8-40.7) Mean: 32.4 (25.1-40.7) Mean: 31.6 (24.0-39.2) Mean: 31.6 (26.9-38.7) Mean: 31.0 (24.6-38.4) Pediatric Reference ranges were obtained from a study by cierra Vazquez al. prepared from 1437 samples obtained at 7 different centers using the same coagulation reagent and instrumentation as [facility]. Currently there are no coagulation studies available worldwide for children to 14 days, and no normal ranges. Heparin therapeutic range (represented by Anti-Factor Xa activity of 0.2 - 0.4 U/mL) corresponds to PTT of 56.6 - 109.0 sec. Performed By: #### 1 [id number], [id number], [id number], [id number], [id number] ####[facility] [address] [place] [address] INR Coag (PPP) [Relative time] 1.2 {INR} Invalid Interpretation Code [facility] Comment on above: Result Comment: INR results are specifically intended to assess patients stabilized on long-term Anticoagulation therapy suggested INR?s ?Less Intensive Anticoagulation? 2.0 ? 3.0Conventional Range 3.0 ? 4.5 Performed By: #### 1 [id number] [id number], [id number], [id number], [id number] ####[facility] [address] [place] [address] PT Coag (PPP) [Time] 13.3 second(s) High 9.4-12.5 [facility] Comment on above: Result Comment: 15 d ays - 4 weeks 1 - 5 months 6 -11 months 1 ? 5 years 6 ? 10 years 11 -17 years Mean: 11.2 (9.5 ? 12.6) Mean: 11.0 (9.7 ? 12.8) Mean: 11.0 (9.8 ? 13.0) Mean: 11.3 (9.9 ? 13.4) Mean: 11.7 (10.0 ? 14.6) Mean: 11.8 (10.0 - 14.1) Pediatric Reference ranges were obtained from a study by cierra Vazquez al. prepared from 1437 samples obtained at 7 different centers using the same coagulation reagent and instrumentation as [facility]. Currently there are no coagulation studies available worldwide for children to 14 days, and no normal ranges. Performed By: #### 1 [id number], [id number], [id number], [id number], [id number] ####[facility] [address] [place] [address] Troponin 0 Hr.on 04-20-2023 Troponin I.cardiac [Mass/Vol] 25.70 pg/mL Normal 15.90-38.40 [facility] Comment on above: Result Comment: The 95% CI (Confidence Interval) PPV (Positive Predictive Value) for myocardial infarction in females is 38 pg/mL, in males 51 pg/mL. The results should be used in conjunction with clinical conditions of myocardial infarction.(Access High Sensitivity Troponin I Instructions For Use, Darío [employer], February 2018) Performed By: #### 1 [id number], [id number], [id number], [id number], [id number] ####[facility] [address] [place] [address] eGFRon 04-20-2023 GFR/1.73 sq M.predicted among non-blacks MDRD (S/P/Bld) [Vol rate/Area] 22 mL/min/1.73 m2 Low >=59 [facility] Comment on above: Order Comment: Order added by Discern Expert. Result Comment: Final Expense Agent geo kidney disease could be indicated at eGFR's of less than 60 mL/min/1.73m2. Kidney failure is indicated at less than 15 mL/min/1.73m2. Performed By: #### 1 [id number], [id number], [id number], [id number], [id number] ####[facility] [address] [place] [address] CNOVon 04-10-2023 CNOV Office Visit (UROLMN ) ----- HIEN JOHNSON ([id number]) 1960 [address]* Date Time Provider Department 04/10/23 1:30 PM PEYTON ARELLANO UROREYN During your visit today, we recorded the following information about you: Pulse Blood pressure Weight 83/minute 144/94 108.1 kg Sabine Toribio OCCA 04/10/2023 1:10 PM Signed Patient BP was high will repeat. Peyton Arellano MD 04/10/2023 2:56 PM Signed Hien Johnson Referred by: No referring provider defined for this encounter. 04/10/2023 CC: Erectile Dysfunction HPI: 62 year old, male presents for evaluation of ED. History notable for hidradenitis suppurativa s/p debridement/penile skin graft/scrotectomy 01/07/2013 (thigh pouches), tobacco use (1 pack cigarettes / week, past 35y), DM2 controlled on diet (reports last A1c 6.2 in January 2023), HTN, CKD on dialysis, DVT on warfarin, ischemic cardiomyopathy. Penile prosthesis surgical history as follows: 2012: Spectra penile prosthesis, explanted for infection 10/2013 2014: AMS malleable with Dr Rod Ortiz; d/t tunical loss, only able to place 1 cylinder. Pt unhappy with rigidity at follow up. Subsequently explanted for infection and was counselled that no further surgical options would be recommended. Unclear date: Malleable implant placed at OSH, records unavailable 03/20/2017: Explant for infection with washout and placement of AMS Spectra 9.5mm x 16cm with 2cm RTE. Unsatisfactory rigidity (unable to penetrate) per report and documentation 09/26/2019: Explant, replacement with AMS Tactra 11mm x 21cm (R and 21.5cm (L) and penoplasty for excess penile skin 03/26/2020: Excision of genital skin dartos flap advancement 07/02/2020: Explant for infection and erosion of cylinder into urethra requiring Aponte placement 01/20/2021: corporal excavation and placement of AMS Tactra 9.5mm at 05/01/2021: Removal of implant for infection He presents today to see if there are any other options for penetrative intercourse. Libido intact: Yes Energy level intact: Yes Orgasm/ejaculation intact: doesn't attempt to masturbate anymore Sensation intact: Yes Curvature: No Blood thinner: warfarin ROS: Urinary sx: none Hematuria: none Patient Entered Questionnaires PAST MEDICAL HISTORY Diagnosis Date Acute systolic (congestive) heart failure ([facility]) 02/11/2020 Anemia of chronic renal failure 01/10/2017 Cataract Right Chronic obstructive pulmonary disease ([facility]) 06/01/2017 COPD (chronic obstructive pulmonary disease) ([facility]) Current smoker Diabetes ([facility]) DVT (deep venous thrombosis) ([facility]) ~2001 Portal Vein DVT, recurrent, lower extremity, acute ([facility]) 02/2015 Right SFA through Popliteal Vein Hidradenitis suppurativa 11/18/2012 HTN (hypertension) on lisinopril S/P IVC filter ~2001 [place] TIA (transient ischemic attack) multiple Unspecified sleep apnea Sleep apnea C-PAP PAST SURGICAL HISTORY Procedure Laterality Date APPENDECTOMY HX CHOLECYSTECTOMY HX LAPAROSCOPIC SPLENECTOMY PAST SURGICAL HISTORY OF 01/2014 Implantation of a single Spectra cylinder in the right corpora cavernosa via extended corporotomy with corporal excavation and attempted placement of a left Spectra cylinder without success. PAST SURGICAL HISTORY OF 10/2013 Penile exploration with explant of bilateral Spectra penile prosthesis cylinders PAST SURGICAL HISTORY OF 06/2013 Insertion of malleable Spectra penile prosthesis PAST SURGICAL HISTORY OF 01/2013 Split-thickness skin graft of perineum, 10 cm x 19 cm. 2. Wound bed preparation, 10 cm x 19 cm PAST SURGICAL HISTORY OF 12/2012 Debridement of perineal wounds, subcutaneous tissue. 2. Placement of wound VAC dressing (15 cm x 13 cm x 2 cm). PAST SURGICAL HISTORY OF 12/2012 Removal and re-application of VAC dressing in the perineum greater than 50 cm PAST SURGICAL HISTORY OF repair of muscle under left eye PICC LINE INSERT/CONSULT 03/02/2015 Current Outpatient Medications Medication Sig ANORO ELLIPTA 62.5-25 mcg/actuation inhaler INHALE 1 PUFF BY MOUTH ONCE DAILY hydrALAZINE (APRESOLINE) 25 mg tablet (Patient not taking: Reported on 04/10/2023) HYDROmorphone (DILAUDID) 2 mg tablet TAKE 1 TABLET BY MOUTH EVERY 12 HOURS FOR 4 DAYS NEEDED FOR SEVERE PAIN (Patient not taking: Reported on 04/10/2023) warfarin (COUMADIN) 2.5 mg tablet (Patient not taking: Reported on 04/10/2023) chlorhexidine (HIBICLENS) 4 % external liquid 118 mL. (Patient not taking: Reported on 04/10/2023) nicotine (NICODERM) 7 mg/24 hr Apply as directed q 24 HR. (Patient not taking: Reported on 04/10/2023) warfarin (COUMADIN) 5 mg tablet Warfarin Warfarin Active 5 MG Oral every Sunday, Sunday, and Sunday April 28, 2019 4:44pm as directed by [facility] 04-28-2019 [facility] ([id number]) (Patient not taking: Reported on 04/10/2023) cephALEXin (KEFLEX) 500 mg capsule Take 500 mg by m (more content not included)... Normal [facility] CHEMISTRYOrdered By: Severo Sorenson on 01-02-2023 POC Device SN [id number] Invalid Interpretation Code [facility] POC Subsection POC User ID [id number] Invalid Interpretation Code [facility] POC Subsection POC Username HOLLY GRAY Invalid Interpretation Code [facility] POC Subsection POCT INR 1.8 High 0.7 - 1.2 [facility] POC Subsection POCT PT 19.8 s High 8.0 - 15.0 second(s) [facility] POC Subsection COAGULATIONOrdered By: Denise Gray on 01-02-2023 POCT INR 1.8 High 0.7 - 1.2 [facility] POCT PT 19.8 s High 8 - 15 second(s) [facility] COAGULATIONOrdered By: Denise Gray on 12-19-2022 POCT INR 1.3 High 0.7 - 1.2 [facility] POCT PT 14.9 s Normal 8 - 15 second(s) [facility] No Panel InformationOrdered By: Severo Palaciosr on 12-19-2022 POC Device SN [id number] Invalid Interpretation Code [facility] POC Subsection POC User ID [id number] Invalid Interpretation Code [facility] POC Subsection POC Username HOLLY GRAY Invalid Interpretation Code [facility] POC Subsection Office Visit (Cardiology)on 11-20-2022 Follow-up visit Diagnoses/Problems Assessed Shortness of breath (786.05) (R06.02) Ischemic cardiomyopathy (414.8) (I25.5) Hyperkalemia (276.7) (E87.5) Tobacco abuse (305.1) (Z72.0) Two-vessel coronary artery disease (414.00) (I25.10) Current smoker (305.1) (F17.200) pack 1 every four days. DVT of leg (deep venous thrombosis) (453.40) (I82.409) Class 1 obesity with body mass index (BMI) of 32.0 to 32.9 in adult (278.00,V85.32) (E66.9,Z68.32) Orders Anticoagulated, Ischemic cardiomyopathy, Shortness of breath Basic Metabolic Panel; Status:Active - Retrospective Authorization; Requested for:20Nov2022; Complete Blood Count; Status:Active - Retrospective Authorization; Requested for:20Nov2022; Class 1 obesity with body mass index (BMI) of 32.0 to 32.9 in adult Healthy Weight Tips; Status:Complete - Retrospective Authorization; Done: 20Nov2022 Some eating tips that can help you lose weight.; Status:Complete - Retrospective Authorization; Done: 20Nov2022 Hyperlipidemia, Urethral fistula ALT - Alanine Aminotransferase, Serum; Status:Active - Retrospective Authorization; Requested for:20Nov2022; AST; Status:Active - Retrospective Authorization; Requested for:20Nov2022; Lipid Panel; Status:Active - Retrospective Authorization; Requested for:20Nov2022; SocHx: Current smoker You need to stop smoking. Though it is not easy, more than half of all adult smokers have quit. We encourage you to write down all the reasons you should quit smoking and set a quit date for yourself. Ask us how we can help. You may also call 0-419-NCTJNOW for free resources and assistance.; Status:Complete - Retrospective Authorization; Done: 20Nov2022 Tobacco Use Screening; Status:Complete; Done: 20Nov2022 Tobacco abuse Tobacco Use Screening; Status:Complete; Done: [id number] Two-vessel coronary artery disease Renew: Aspirin 81 MG Oral Tablet Delayed Release; Take one tablet twice weekly Patient Instructions Please bring all medicines, vitamins, and herbal supplements with you when you come to the office. Prescriptions will not be filled unless you are compliant with your follow up appointments or have a follow up appointment scheduled as per instruction of your physician. Refills should be requested at the time of your visit. Follow up in 7 months Lab work Can cates Eliquis 5 mg one tablet two times daily Chief Complaint HIEN JOHNSON is being seen for a 6 month follow-up of. History of Present Illness Patient is here for follow-up to management for history of two-vessel coronary artery disease based on heart cath back in 2019, ischemic cardiomyopathy, shortness of breath and hyperlipidemia. Since last time I saw him he denies any change in cardiac status or symptoms. Continues to have functional class II shortness of breath. He denies chest pain. He denies lightheadedness, dizziness or syncope. Assessment 1. Symptoms of class II breath due to ischemic cardiomyopathy with total occlusion of the mid LAD which is chronic and moderate disease of the RCA based on previous cardiac catheterization couple of years ago in addition the patient had evidence of significant volume overload due to chronic kidney disease. Patient report marked improvement since hemodialysis 2. Ischemic cardiomyopathy with LVEF around 30 to 35% compensated functional class II 3. Advanced chronic kidney started on dialysis 4. History of DVT on Coumadin therapy request to switch to the newer agent 5. Obesity with massive weight loss due to volume removal 6. Hyperkalemia but by nephrology cannot be on an [place] inhibitor to do that 7. Hyperlipidemia on atorvastatin 8. Prior hospitalization for infected penile implant Plan 1. Advised the patient to continue present medical therapy. I gave him the name of Eliquis 5 mg twice daily if the cost is reasonable we will switch his Coumadin to Eliquis 2. I advised him to repeat his lab work as ordered 3. Continue efforts to lose weight and exercise 4. Patient was counseled regarding smoking cessation 5. I discussed with patient prophylactic AICD again today.. Following lengthy discussion recent elected to defer for now because of concern about infection based on recent experience with penile implant. He understand the risk of sudden cardiac . He continues to be reluctant to proceed 6. We will see him back in the office in 6 months and follow-up Surgical History Problems History of Appendectomy History of Arteriovenous graft fistula creation procedure History of Cholecystectomy History of Complete colonoscopy History of Dialysis tunneled catheter placement History of Foot surgery History of Full thickness skin graft History of Gallbladder Surgery History of Inferior vena cava filter placement History of Orchiectomy bilateral History of Penile prosthetic device placement History of Penile surgery History of Prostatectomy History of Scrotal surgery History of Skull fracture repair History of (more content not included)... Normal [employer] Tobacco Screening.on 023 Adult depression screening assessment No [facility] [employer] 600 DO Work Phone: Fall risk assessment a) No falls within the last year [facility] [employer] 600 DO Work Phone: Tobacco use status [facility] a) Yes [facility] [employer] 600 DO Work Phone: Tobacco Screening. Yes [facility] [employer] 600 DO Work Phone: Office Visit (Urology)on Follow-up visit Diagnoses/Problems Assessed Erectile dysfunction (607.84) (N52.9) Patient Discussion/Summary I had a long discussion with him. I do not think any kind of penile implant malleable or an inflatable would be appropriate. Different approaches using different implants and different techniques have failed. Different complications have happened ranging from erosion to infection. He is understandably disappointed. I told him other ways to achieve penetration including wrapping his phallus and a Coban, as well as using Elator device. He will try these. Chief Complaint NPV ED History of Present Agdiczv31 yo M with DM, HLD, CKD< DVT referred by Dr. West for ED Dr. Hardwick's note and extensive previous hx reviewed Dr West's note reviewed Pt with extensive urologic surgery. Pt also with CKD on dialysis, ischemic cardiomyopathy, DVT on coumadin. H/o hidradenitis s/p scrotal skin excision and bilateral scrotal thigh pouches. Pt had initial placement of malleable implant some years ago. Had an explant of right SRPP, washout and placement of AMS spectra 9.5mm x 16cm with 2cm rear-tip on 03/20/17. Pt healed well but reports that he is unable to have penetrative intercourse due to lack of rigidity. Pt had removal of SRPP and replacement of AMS Tactra 11mm x 21cm (R) 21.5 (L) with standard rear tips as well as penoplasty due to excessive penile skin on 09.26.19. Pt underwent excision of genital skin with Dartos Flap Advancement on 03/26/2020. Pt found to have infection and taken to the OR on 07/02/20. Found to have erosion of left cylinder into the urethra and infection. Pt had explant of his implant and cystoscopy with Aponte placement. Patient underwent a malleable penile implant placement and corporal excavation on 01/20/2021, performed by Dr. Lonnie Hardwick. Placed AMS Tacta 9.5mm. This implant later got infected. Patient underwent removal of penile prosthesis, wound irrigation, [place] drain placement, and Aponte catheter placement on 05/01/2021, performed by Dr. Lonnie Hardwick. Review of Systems Constitutional: no fever, no chills and not feeling poorly. Eyes: no eyesight problems. ENT: no hearing loss, no nosebleeds and no sore throat. Cardiovascular: no chest pain, no palpitations and no extremity edema. Respiratory: no shortness of breath, no wheezing, no cough and no shortness of breath during exertion. Gastrointestinal: no abdominal pain, no constipation, no heartburn, no diarrhea, no vomiting and no blood in stools. Genitourinary: no dysuria, no incontinence, normal micturition and no testicular pain. Musculoskeletal: no arthralgias and no gait abnormality. Integumentary: no skin lesions, no skin wound and no change in a mole. Neurological: no confusion, no dizziness, no fainting and no difficulty walking. Psychiatric: not suicidal, no anxiety and no depression. All other systems have been reviewed and are negative for complaint. Active Problems Problems Abnormal electrocardiogram (794.31) (R94.31) Abscess of groin, left (682.2) (L02.214) Angina, class II (413.9) (I20.9) Anticoagulated (V58.61) (Z79.01) Blood in urine (599.70) (R31.9) Combined forms of age-related cataract of right eye (366.19) (H25.811) Dry eye syndrome of both eyes (375.15) (H04.123) DVT of leg (deep venous thrombosis) (453.40) (I82.409) Erectile dysfunction (607.84) (N52.9) Erectile dysfunction (607.84) (N52.9) Fall, initial encounter (E888.9) (W19.XXXA) Former smoker (V15.82) (Z87.891) QUIT SMOKING 03/23/2022 Hydradenitis (705.83) (L73.2) Hyperkalemia (276.7) (E87.5) Hyperlipidemia (272.4) (E78.5) Infected penile implant, initial encounter (996.65) (T83.61XA) Irregular astigmatism of both eyes (367.22) (H52.213) Ischemic cardiomyopathy (414.8) (I25.5) 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) Lymphedema, not elsewhere classified (457.1) (I89.0) Non-proliferative diabetic retinopathy, mild, right eye (250.50,362.04) (E11.3291) Overweight with body mass index (BMI) of 28 to 28.9 in adult (278.02,V85.24) (E66.3,Z68.28) Peripheral 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) Post-op pain (338.18) (G89.18) Preoperative cardiovascular examination (V72.81) (Z01.810) Pseudophakia of left eye (V43.1) (Z96.1) S/P insertion of penile implant (V45.89) (Z96.0) Shortness of breath (786.05) (R06.02) Surgical wound breakdown (998.32) (T81.31XA) TIA (transient ischemic attack) (435.9) (G45.9) Tobacco abuse (305.1) (Z72.0) Two-vessel coronary artery disease (414.00) (I25.10) 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 Normal [employer] Tobacco Screening.on 023 Fall risk assessment a) No falls within the last year [employer] Work Phone: Tobacco use status CPHS a) Yes [employer] Work Phone: Office Visit (Urology)on Follow-up visit Diagnoses/Problems Assessed Erectile dysfunction (607.84) (N52.9) Patient Discussion/Summary #Erectile dysfunction -discussed that I agree with Dr. Hardwick that another penile implant would likely not be a good option for him given his extensive urologic history. -referral to Dr. Nunez for second opinion By signing my name below, I, tylor Ellis, attest that this documentation has been prepared under the direction and in the presence of Dr. Marta Harper. All medical record entries made by the melissaibmira were at my direction and personally dictated by me. I have reviewed the chart and agree that the record accurately reflects my personal performance of the history, physical exam, discussion, and plan. Chief Complaint ED History of Present [id number] yo M with DM, HLD, CKD< DVT referred by Dr. Hardwick for ED Dr. Hardwick's note and extensive previous hx reviewed #Erectile Dysfunction -Duration: 8 years -Rigidity of erections: 0/10 -s/p prostatectomy: no -Hernia Repair? 6 months old -on nitrates/NTG?: no -smoker? recently quit 3 weeks ago Pt with extensive urologic surgery. Pt also with CKD on dialysis, ischemic cardiomyopathy, DVT on coumadin. H/o hidradenitis s/p scrotal skin excision and bilateral scrotal thigh pouches. Pt had initial placement of malleable implant some years ago. Had an explant of right SRPP, washout and placement of AMS spectra 9.5mm x 16cm with 2cm rear-tip on 03/20/17. Pt healed well but reports that he is unable to have penetrative intercourse due to lack of rigidity. Pt had removal of SRPP and replacement of AMS Tactra 11mm x 21cm (R) 21.5 (L) with standard rear tips as well as penoplasty due to excessive penile skin on 09.26.19. Pt underwent excision of genital skin with Dartos Flap Advancement on 03/26/2020. Pt found to have infection and taken to the OR on 07/02/20. Found to have erosion of left cylinder into the urethra and infection. Pt had explant of his implant and cystoscopy with Aponte placement. Patient underwent a malleable penile implant placement and corporal excavation on 01/20/2021, performed by Dr. Lonnie Hardwick. Placed AMS Tacta 9.5mm. This implant later got infected. Patient underwent removal of penile prosthesis, wound irrigation, Mar drain placement, and Aponte catheter placement on 05/01/2021, performed by Dr. Lonnie Hardwick. Active Problems Problems Abnormal electrocardiogram (794.31) (R94.31) Abscess of groin, left (682.2) (L02.214) Angina, class II (413.9) (I20.9) Anticoagulated (V58.61) (Z79.01) Blood in urine (599.70) (R31.9) Combined forms of age-related cataract of right eye (366.19) (H25.811) Dry eye syndrome of both eyes (375.15) (H04.123) DVT of leg (deep venous thrombosis) (453.40) (I82.409) Erectile dysfunction (607.84) (N52.9) Erectile dysfunction (607.84) (N52.9) Fall, initial encounter (E888.9) (W19.XXXA) Former smoker (V15.82) (Z87.891) QUIT SMOKING 03/23/2022 Hydradenitis (705.83) (L73.2) Hyperkalemia (276.7) (E87.5) Hyperlipidemia (272.4) (E78.5) Infected penile implant, initial encounter (996.65) (T83.61XA) Irregular astigmatism of both eyes (367.22) (H52.213) Ischemic cardiomyopathy (414.8) (I25.5) 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) Lymphedema, not elsewhere classified (457.1) (I89.0) Non-proliferative diabetic retinopathy, mild, right eye (250.50,362.04) (E11.3291) Overweight with body mass index (BMI) of 28 to 28.9 in adult (278.02,V85.24) (E66.3,Z68.28) Peripheral 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) Post-op pain (338.18) (G89.18) Preoperative cardiovascular examination (V72.81) (Z01.810) Pseudophakia of left eye (V43.1) (Z96.1) S/P insertion of penile implant (V45.89) (Z96.0) Shortness of breath (786.05) (R06.02) Surgical wound breakdown (998.32) (T81.31XA) TIA (transient ischemic attack) (435.9) (G45.9) Tobacco abuse (305.1) (Z72.0) Two-vessel coronary artery disease (414.00) (I25.10) 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) Urinary retention (788.20) (R33.9) Urinary tract infection (599.0) (N39.0) Past Medical History Problems History of cerebrovascular accident (V12.54) (Z86.73) History of chronic obstructive lung disease (V12.69) (Z87.09) History of deep venous thrombosis (V12.51) (Z86.718) History of diabetes mellitus (V12.29) (Z86.39) History of diabetic neuropathy (V12.29) (Z86.39) History of high blood pressure (V12.59) (Z86.79) History of hypertension (V12.59) (Z86.79) History of Portal vein thrombosis (452) (I81) Surgical History Problems History of Appendectomy History of Arteriovenous graft fistula creation procedure History of Cholecystectomy History of Complete colonoscopy History of Dialysis tunneled catheter placement History of Foot surgery History of Full thickness skin graft History of Gallbladder Surgery History of Inferior vena cava filter placement History of Orchiectomy bilateral History of Penile prosthetic device placement (more content not included)... Normal [employer] Tobacco Screening.on 023 Fall risk assessment a) No falls within the last year [employer] Work Phone: Tobacco use status CPHS b) No [employer] Work Phone: CHEMISTRYOrdered By: SYSTEM SYSTEM on 09-18-2022 Albumin [Mass/Vol] 3.4 g/dL Normal 3.3 - 5.0 gm/dL [facility] Anion gap [Moles/Vol] 15 mmol/L Normal 6 - 16 mEq/L [facility] Calcium [Mass/Vol] 8.9 mg/dL Normal 8.9 - 11. 1 mg/dL [facility] Chloride [Moles/Vol] 97 mmol/L Low 101 - 1 11 mmol/L [facility] CO2 [Moles/Vol] 28 mmol/L Normal 21 - 31 mmol/L [facility] Creatinine [Mass/Vol] 4.3 mg/dL High 0.5 - 1.3 mg/dL [facility] GFR/1.73 sq M.predicted among blacks MDRD (S/P/Bld) [Vol rate/Area] 17 mL/min/1.73 m2 Low >=59mL/min/ 1.73 m2 FT Chem S GFR/1.73 sq M.predicted among non-blacks MDRD (S/P/Bld) [Vol rate/Area] 14 mL/min/1.73 m2 Low >=59mL/min/ 1.73 m2 FT Chem S Glucose [Mass/Vol] 159 mg/dL Normal 55 - 199 mg/dL [facility] Phosphate [Mass/Vol] 4.6 mg/dL Normal 1.9 - 4 .6 mg/dL [facility] Potassium [Moles/Vol] 4.5 mmol/L Normal 3.5 - 5.3 mmol/L [facility] Sodium [Moles/Vol] 135 mmol/L Normal 135 - 145 mmol/L [facility] Urea nitrogen [Mass/Vol] 76 mg/dL High 5 - 21 mg/dL [facility] Urea nitrogen/Creatinine [Mass ratio] 18 mg/mg Normal 10 - 20 [facility] CHEMISTRYOrdered By: Leon Rivera on 09-18-2022 Albumin Elph (U) [Mass fraction] 7.6 mg/dL Invalid Interpretation Code [facility] Creatinine (U) [Mass/Vol] 11.4 mg/dL Invalid Interpretation Code [facility] U Prot/Creat Ratio 666.70 mg/gm Cr High 0.00 - 200.00 mg/gm Cr [facility] URINALYSISOrdered By: Vandana Andrew on 09-18-2022 Bilirubin Ql (U) Negative (09/18/22 9:58 AM) Normal Negative [facility] Auto SS Clarity (U) Clear (09/18/22 9:58 AM) Normal Clear [facility] SS Color (U) Yellow (09/18/22 9:58 AM) Normal Yellow [facility] Auto SS Epithelial cells.squamous LM.HPF (Urine sed) [#/Area] 0-2 /HPF Normal 0-2/HPF [facility] Glucose Test strip (U) [Mass/Vol] Negative (09/18/22 9:58 AM) Normal Negative [facility] Auto SS Hemoglobin Ql (U) Trace *ABN* (09/18/22 9:58 AM) Invalid Interpretation Code Negative [facility] Auto SS Ketones (U) [Mass/Vol] Negative (09/18/22 9:58 AM) Normal Negative [facility] Auto SS Crawford.plasma/Lithi um.RBC (Bld) [Mass ratio] 0-3 /HPF Normal 0-3/HPF [facility] Nitrite Ql (U) Negative (09/18/22 9:58 AM) Normal Negative [facility] Auto SS pH (U) 6.5 *NA* (09/18/22 9:58 AM) Invalid Interpretation Code 5.0 - 9.0 [facility] Protein (U) [Mass/Vol] Negative (09/18/22 9:58 AM) Normal Negative [facility] Auto SS Specific gravity (U) [Rel density] <=1.005 *NA* (09/18/22 9:58 AM) Invalid Interpretation Code 1.005 - 1.030 [facility] [facility] UA Spec Desc Clean Catch (09/18/22 9:58 AM) Normal [facility] [place] [facility]A Auto SS Urobilinogen Qn (U) 0.0072572 {Cesar'U}/dL Normal 0.0 - 1.0 EU/dL [facility] [facility] Auto SS WBC Auto Ql (U) Negative (09/18/22 9:58 AM) Normal Negative [facility] UA Auto SS WBC LM.HPF (Urine sed) [#/Area] 0-5 /HPF Normal 0-5/HPF [facility] UA Auto SS Office Visit (Urology)on Follow-up visit Diagnoses/Problems Assessed Erectile dysfunction (607.84) (N52.9) Patient Discussion/Summary 62 year old male here for fu Pt with extensive urologic surgery. Pt also with CKD on dialysis, ischemic cardiomyopathy, DVT on coumadin. Has had multiple implants and infections/erosion. Interested in what other options for ED he may have. I honestly don?t think there is anything we can do surgically for him. Will try intra-urethral suppositories per patient request, ordered through [facility] Chief Complaint An interactive audio and video telecommunication system which permits real time communications between the patient (at the originating site) and provider (at the distant site) was utilized to provide this telehealth service. Verbal consent was requested and obtained from HIEN JOHNSON on this date, 08/25/2022 08:00 AM , for a telehealth visit. FUV History of Present Eliobui49 year old male here for fu Pt with extensive urologic surgery. Pt also with CKD on dialysis, ischemic cardiomyopathy, DVT on coumadin. H/o hidradenitis s/p scrotal skin excision and bilateral scrotal thigh pouches. Pt had initial placement of malleable implant some years ago. Had an explant of right SRPP, washout and placement of AMS spectra 9.5mm x 16cm with 2cm rear-tip on 03/20/17. Pt healed well but reports that he is unable to have penetrative intercourse due to lack of rigidity. Pt had removal of SRPP and replacement of AMS Tactra 11mm x 21cm (R) 21.5 (L) with standard rear tips as well as penoplasty due to excessive penile skin on 3.6.20. Pt underwent excision of genital skin with Dartos Flap Advancement on 03/26/2020. Pt found to have infection and taken to the OR on 07/02/20. Found to have erosion of left cylinder into the urethra and infection. Pt had explant of his implant and cystoscopy with Aponte placement. Patient underwent a malleable penile implant placement and corporal excavation on 01/20/2021, performed by Dr. Lonnie Hardwick. Placed AMS Tacta 9.5mm. This implant later got infected. Patient underwent removal of penile prosthesis, wound irrigation, Mar drain placement, and Aponte catheter placement on 05/01/2021, performed by Dr. Lonnie Hardwick. Patient presents today for fu. Active Problems Problems Abnormal electrocardiogram (794.31) (R94.31) Abscess of groin, left (682.2) (L02.214) Angina, class II (413.9) (I20.9) Anticoagulated (V58.61) (Z79.01) Blood in urine (599.70) (R31.9) Combined forms of age-related cataract of right eye (366.19) (H25.811) Dry eye syndrome of both eyes (375.15) (H04.123) DVT of leg (deep venous thrombosis) (453.40) (I82.409) Erectile dysfunction (607.84) (N52.9) Erectile dysfunction (607.84) (N52.9) Fall, initial encounter (E888.9) (W19.XXXA) Former smoker (V15.82) (Z87.891) QUIT SMOKING 03/23/2022 Hydradenitis (705.83) (L73.2) Hyperkalemia (276.7) (E87.5) Hyperlipidemia (272.4) (E78.5) Infected penile implant, initial encounter (996.65) (T83.61XA) Irregular astigmatism of both eyes (367.22) (H52.213) Ischemic cardiomyopathy (414.8) (I25.5) 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) Lymphedema, not elsewhere classified (457.1) (I89.0) Non-proliferative diabetic retinopathy, mild, right eye (250.50,362.04) (E11.3291) Overweight with body mass index (BMI) of 28 to 28.9 in adult (278.02,V85.24) (E66.3,Z68.28) Peripheral 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) Post-op pain (338.18) (G89.18) Preoperative cardiovascular examination (V72.81) (Z01.810) Pseudophakia of left eye (V43.1) (Z96.1) S/P insertion of penile implant (V45.89) (Z96.0) Shortness of breath (786.05) (R06.02) Surgical wound breakdown (998.32) (T81.31XA) TIA (transient ischemic attack) (435.9) (G45.9) Tobacco abuse (305.1) (Z72.0) Two-vessel coronary artery disease (414.00) (I25.10) 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) Urinary retention (788.20) (R33.9) Urinary tract infection (599.0) (N39.0) Past Medical History Problems History of cerebrovascular accident (V12.54) (Z86.73) History of chronic obstructive lung disease (V12.69) (Z87.09) History of deep venous thrombosis (V12.51) (Z86.718) History of diabetes mellitus (V12.29) (Z86.39) History of diabetic neuropathy (V12.29) (Z86.39) History of high blood pressure (V12.59) (Z86.79) History of hypertension (V12.59) (Z86.79) History of Portal vein thrombosis (452) (I81) Surgical History Problems History of Appendectomy History of Arteriovenous graft fistula creation procedure History of Cholecystectomy History of Complete colonoscopy History of Dialysis tunneled catheter placement History of Foot surgery History of Full thickness skin graft History of Gallbladder Surgery History of Inferior vena cava filter placement History of Orchiectomy bilateral History of Penile prosthetic device placement History of Penile surgery History of Prostatectomy History of Scrotal surgery History of Skull fracture repair History of S (more content not included)... Normal [employer] CT CHEST WO CONon 08-18-2022 CT CHEST WO CON EXAMINATION: CT CHES T WO CON HISTORY: Pleural effusion ; chronic shortness breath, loculated right pleural effusion COMPARISON: No relevant comparison available. TECHNIQUE: Axial, Coronal, and Sagittal images were created without the administration of IV contrast material. Dose reduction techniques were achieved by using automated exposure control and/or adjustment of mA and/or kV according to patient size and/or use of iterative reconstruction technique. FINDINGS: LUNGS: No visible pulmonary disease. PLEURA: No mass, effusion, or pneumothorax. VASCULATURE: No abnormality. DEJAH: No mass or adenopathy. MEDIASTINUM: No mass or adenopathy. CARDIAC: Trace amount pericardial fluid, up to 3 mm. AORTA: No aneurysm or dissection. CHEST WALL: No mass or axillary adenopathy. BONES: No bone lesion or fracture. LIMITED ABDOMEN: Grossly stable complex right renal cysts. Limited images of the upper abdomen. OTHER: Negative. IMPRESSION: 1. Clearing of previously seen pleural effusions. 2. No pulmonary infiltrates or significant chronic interstitial changes. 3. Trace amount of pericardial fluid, but significantly improved. Electronically authenticated by: KHANG HEATH Date: 2022-08-18 14:14 Normal [facility] BMPon 07-28-2022 BMP 92 [email or web address] Other BMP 4.6 [email or web address] Other BMP 13 [email or web address] Other BMP 8.6 [email or web address] Other BMP 20 [email or web address] Other BMP 5.5 [email or web address] Other BMP 99 [email or web address] Other BMP 16 [email or web address] Other CBCon 07-28-2022 Platelets (Bld) [#/Vol] 261.0 10*3/uL [email or web address] Other RBC (Bld) [#/Vol] 4.4 10*6/uL [email or web address] Other WBC (Bld) [#/Vol] 6.7 10*3/uL [email or web address] Other CBC [email or web address] Other CHEMISTRYOrdered By: SYSTEM SYSTEM on 07-28-2022 Albumin [Mass/Vol] 3.2 g/dL Low 3.3 - 5.0 gm/dL [facility] Albumin/Globulin [Mass ratio] 0.7 {ratio} Low 1.1 - 2.2 [facility] ALP [Catalytic activity/Vol] 115 [iU]/d High 21 - 98 Int._Unit/L [facility] ALT No additional P-5'-P [Catalytic activity/Vol] 14 [iU]/d Normal 6 - 46 Int._Unit/L [facility] Anion gap [Moles/Vol] 16 mmol/L Normal 6 - 16 mEq/L [facility] AST [Catalytic activity/Vol] 22 [iU]/d Normal 5 - 43 Int._Unit/L [facility] Bilirubin [Mass/Vol] 0.6 mg/dL Normal 0.0 - 1 .1 mg/dL [facility] Calcium [Mass/Vol] 8.6 mg/dL Low 8.9 - 11. 1 mg/dL [facility] Chloride [Moles/Vol] 99 mmol/L Low 101 - 1 11 mmol/L [facility] Creatinine [Mass/Vol] 4.6 mg/dL High 0.5 - 1.3 mg/dL [facility] GFR/1.73 sq M.predicted among blacks MDRD (S/P/Bld) [Vol rate/Area] 16 mL/min/1.73 m2 Low >=59mL/min/ 1.73 m2 [facility] Chem S GFR/1.73 sq M.predicted among non-blacks MDRD (S/P/Bld) [Vol rate/Area] 13 mL/min/1.73 m2 Low >=59mL/min/ 1.73 m2 [facility] Chem S Globulin (S) [Mass/Vol] 4.8 g/dL High 1.4 - 4.0 gm/dL [facility] Potassium [Moles/Vol] 5.5 mmol/L High 3.5 - 5.3 mmol/L [facility] Protein [Mass/Vol] 8.0 g/dL High 6.0 - 7.8 gm/dL [facility] Sodium [Moles/Vol] 132 mmol/L Low 135 - 145 mmol/L [facility] Urea nitrogen [Mass/Vol] 92 mg/dL Invalid Interpretation Code 5 - 21 mg/dL [facility] Comment on above: Result Comment: Crit ical Result [id number] Called to KAYLYN CASIANO AT [facility] by DAQUAN FITZGERALD And Read Back For Confirmation at: 07/28/2022 11:01:13\Critical Result verified by repeat analysis Urea nitrogen/Creatinine [Mass ratio] 20 mg/mg Normal 10 - 20 [facility] HEMATOLOGYOrdered By: Kaz Witt on 07-28-2022 Platelets (Bld) [#/Vol] 261.0 E9/L Normal 150.0 - 500.0 E9/L [facility] RBC (Bld) [#/Vol] 4.4 E12/L Normal 4.3 - 5.9 E12/L [facility] WBC corrected for nucl RBC Auto (Bld) [#/Vol] 6.7 E9/L Normal 4.0 - 11.0 E9/L [facility] Laboratory - Chemistry and C hemistry - challengeOrdered By: SYSTEM SYSTEM on 07-28-2022 CO2 [Moles/Vol] 23 mmol/L [facility] Jose minerva Glucose [Mass/Vol] 153 mg/dL [facility] R emisol Laboratory - Hematology and Cell countsOrdered By: Izzy Witt on 07-28-2022 Erythrocyte distribution width (RBC) [Ratio] 18.3 % [facility] Hematocrit (Bld) [Volume fraction] 37.1 % [facility] Hemoglobin (Bld) [Mass/Vol] 11.9 g/dL [facility] MCH (RBC) [Entitic mass] 27.3 pg [facility] MCHC (RBC) [Mass/Vol] 32.0 g/dL [facility] MCV (RBC) [Entitic vol] 85.2 fL [facility] Platelet mean volume (Bld) [Entitic vol] 7.6 fL [facility] HEMOGLOBINon 07-10-2022 Hemoglobin (Bld) [Mass/Vol] 13.0 g/dL Critically low 14.0-18.0 [facility] Comment on above: Performed By: #### H STROPN, BNP, BMP #### [facility] [address] [address] [address] Kerline Bush XR CHEST 2 Von 07-10-2022 XR CHEST 2 V EXAMINATION: XR CHES T 2 V HISTORY: Mucopurulent chronic bronchitis ; chronic dyspnea, nonproductive cough COMPARISON: XR chest 04/12/2022 FINDINGS: LUNGS: Hyperexpanded lungs without appreciable infiltrates or mass. VASCULATURE: No increased pulmonary vasculature. PLEURA: No pneumothorax, effusion, or pleural thickening. CARDIAC: No cardiomegaly or cardiac silhouette abnormality. MEDIASTINUM: No visible mass or adenopathy. BONES: No fracture or visible bone lesion. OTHER: Right jugular dual-lumen intravenous catheter. IMPRESSION: 1. No acute cardiac pulmonary process. 2. Hyperexpanded lungs compatible with COPD. Electronically authenticated by: KHANG HEATH Date: 2022-07-10 15:59 Normal [facility] Office Visit (Cardiology)on 06-08-2022 Follow-up visit Diagnoses/Problems Assessed Shortness of breath (786.05) (R06.02) Two-vessel coronary artery disease (414.00) (I25.10) Hyperlipidemia (272.4) (E78.5) Former smoker (V15.82) (Z87.891) QUIT SMOKING 03/23/2022 Ischemic cardiomyopathy (414.8) (I25.5) TIA (transient ischemic attack) (435.9) (G45.9) Tobacco abuse (305.1) (Z72.0) Overweight with body mass index (BMI) of 28 to 28.9 in adult (278.02,V85.24) (E66.3,Z68.28) Angina, class II (413.9) (I20.9) Orders Angina, class II Start: Isosorbide Dinitrate 10 MG Oral Tablet; TAKE 1 TABLET 3 times daily Overweight with body mass index (BMI) of 28 to 28.9 in adult Healthy Weight Tips; Status:Complete - Retrospective Authorization; Done: 08Jun2022 Some eating tips that can help you lose weight.; Status:Complete - Retrospective Authorization; Done: 08Jun2022 SocHx: Former smoker Tobacco Use Screening; Status:Complete; Done: 08Jun2022 Tobacco Use Screening; Status:Complete; Done: 08Jun2022 Tobacco abuse Tobacco Use Screening; Status:Complete; Done: [id number] Two-vessel coronary artery disease Start: Aspirin 81 MG Oral Tablet Delayed Release; Take one tablet twice weekly Patient Instructions Please bring all medicines, vitamins, and herbal supplements with you when you come to the office. Prescriptions will not be filled unless you are compliant with your follow up appointments or have a follow up appointment scheduled as per instruction of your physician. Refills should be requested at the time of your visit Follow up in 6 months Chief Complaint HIEN JOHNSON is being seen for a 6 month follow-up of. History of Present Illness Patient is here for follow-up continue management for history of coronary artery disease with previous documentation of occlusion of his LAD. He was recently in the hospital for sepsis and bacteremia attributed to infected arm shunt. He was treated with antibiotic. He underwent dialysis with marked improvement of his volume status and symptoms. Return to our record he lost close to 70 pounds since initiating hemodialysis. He is following with the renal service and he indicated to me they may decide to stop dialysis temporarily to see what happens with his kidneys. During that hospitalization he had small non-Q wave myocardial infarction felt to be type II myocardial infarction due to sepsis and bacteremia. The patient reports he feels much better since all the fluid has been removed with dialysis. Assessment 1. Symptoms of class II breath due to ischemic cardiomyopathy with total occlusion of the mid LAD which is chronic and moderate disease of the RCA based on previous cardiac catheterization couple of years ago in addition the patient had evidence of significant volume overload due to chronic kidney disease. Patient report marked improvement since hemodialysis and removing more than 70 pounds of fluid 2. Ischemic cardiomyopathy with LVEF around 30 to 35% compensated functional class II 3. Advanced chronic kidney had been on hemodialysis recently but he is telling me there may be a trial to stop dialysis in the near future 4. History of DVT on Coumadin therapy 5. Obesity with massive weight loss due to volume removal 6. Hyperkalemia but by nephrology cannot be on an [place] inhibitor to do that 7. Hyperlipidemia on atorvastatin 8. Prior hospitalization for infected penile implant Plan 1. Advised the patient to add isosorbide 10 mg 3 times daily to optimize heart failure therapy and the addition of aspirin couple of times a week 2. I reviewed with him the results of his recent hospitalization record and lab work 3. Patient was advised to do continue his long-term follow-up with his counseling psychologist. In my opinion he approaching the need to start hemodialysis preparation 4. Patient was counseled regarding losing weight, exercise and dietary modification 5. I discussed with patient prophylactic AICD again today.. Following lengthy discussion recent elected to defer for now because of concern about infection based on recent experience with penile implant. He understand the risk of sudden cardiac . He continues to be reluctant to proceed 6. I discussed with him repeat ischemic evaluation. Patient declined considering his clinical status markedly improved with volume removal and hemodialysis 7. Risk, benefit and alternative of anticoagulation reviewed with patient he understood and agreed Current Meds Medication NameInstruction Bumetanide 2 MG Oral TabletTAKE 1 TABLET TWICE DAILY. Carvedilol 6.25 MG Oral TabletTAKE 1 TABLET TWICE DAILY WITH MEALS. Ferrous Gluconate 324 (38 Fe) MG Oral TabletTAKE 1 TABLET BY MOUTH ONCE DAILY Fluticasone-Salmeterol 113-14 MCG/ACT Inhalation Aerosol Powder Breath Activatedas directed hydrALAZINE HCl - 10 MG Oral TabletTAKE 1 TABLET BY MOUTH THREE TIMES DAILY Sodium Bicarbonate 650 MG Oral TabletTAKE 1 TABLET 3 TIMES DAILY WITH MEALS. Vitamin D3 CAPSTAKE 1 CAPSULE Daily Warfarin Sodium 2.5 MG Oral (more content not included)... Normal [employer] Tobacco Screening.on 022 Adult depression screening assessment No [facility] [employer] 600 DO Work Phone: Tobacco use status CPHS b) No [facility] [employer] DO Work Phone: CHEMISTRYOrdered By: SYSTEM SYSTEM on 05-22-2022 Albumin [Mass/Vol] 2.8 g/dL Low 3.3 - 5.0 gm/dL [facility] Albumin/Globulin [Mass ratio] 0.5 {ratio} Low 1.1 - 2.2 [facility] ALP [Catalytic activity/Vol] 140 [iU]/d High 21 - 98 Int._Unit/L [facility] ALT No additional P-5'-P [Catalytic activity/Vol] 17 [iU]/d Normal 6 - 46 Int._Unit/L [facility] Anion gap [Moles/Vol] 16 mmol/L Normal 6 - 16 mEq/L [facility] AST [Catalytic activity/Vol] 33 [iU]/d Normal 5 - 43 Int._Unit/L [facility] Bilirubin [Mass/Vol] 1.5 mg/dL High 0.0 - 1 .1 mg/dL [facility] Bilirubin.direct [Mass/Vol] 0.5 mg/dL High 0.1 - 0.4 mg/dL [facility] Bilirubin.indirect [Mass or moles/Vol] 1.0 mg/dL High 0.1 - 0.9 mg/dL [facility] Calcium [Mass/Vol] 8.3 mg/dL Low 8.9 - 11. 1 mg/dL [facility] Chloride [Moles/Vol] 93 mmol/L Low 101 - 1 11 mmol/L [facility] CO2 [Moles/Vol] 26 mmol/L Normal 21 - 31 mmol/L [facility] Creatinine [Mass/Vol] 1.8 mg/dL High 0.5 - 1.3 mg/dL [facility] CRP [Mass/Vol] 1.0 mg/dL Normal <=1.9mg/dL [facility] ol GFR/1.73 sq M.predicted among blacks MDRD (S/P/Bld) [Vol rate/Area] 47 mL/min/1.73 m2 Low >=59mL/min/ 1.73 m2 FT Chem S GFR/1.73 sq M.predicted among non-blacks MDRD (S/P/Bld) [Vol rate/Area] 39 mL/min/1.73 m2 Low >=59mL/min/ 1.73 m2 FT Chem S Globulin (S) [Mass/Vol] 5.6 g/dL High 1.4 - 4.0 gm/dL [facility] Glucose [Mass/Vol] 91 mg/dL Normal 55 - 199 mg/dL [facility] Lipase [Catalytic activity/Vol] 32 U/L Normal 13 - 58 unit/L [facility] Potassium [Moles/Vol] 3.1 mmol/L Low 3.5 - 5.3 mmol/L [facility] Protein [Mass/Vol] 8.4 g/dL High 6.0 - 7.8 gm/dL [facility] Sodium [Moles/Vol] 132 mmol/L Low 135 - 145 mmol/L [facility] Urea nitrogen [Mass/Vol] 12 mg/dL Normal 5 - 21 mg/dL [facility] Urea nitrogen/Creatinine [Mass ratio] 7 mg/mg Low 10 - 20 [facility] HEMATOLOGYOrdered By: Alon Cai on 05-22-2022 Anisocytosis Ql (Bld) Present (05/22/22 11:25 AM) Normal [facility] Erythrocyte distribution width (RBC) [Ratio] 23.9 % High 10.9 - 14.2 % [facility] Hematocrit (Bld) [Volume fraction] 41.3 % Normal 37.7 - 49.0 % [facility] Hemoglobin (Bld) [Mass/Vol] 13.4 g/dL Low 13.5 - 17.5 gm/dL [facility] Hypochromia Auto Ql (Bld) Present (05/22/22 11:25 AM) Normal [facility] MCH (RBC) [Entitic mass] 26.0 pg Low 27.0 - 34.0 pg [facility] MCHC (RBC) [Mass/Vol] 32.4 g/dL Normal 31.4 - 36.0 gm/dL [facility] MCV (RBC) [Entitic vol] 80.4 fL Normal 80.0 - 100.0 fL [facility] Microcytes Ql (Bld) Present (05/22/22 11:25 AM) Normal [facility] Morphology Mino (Bld) [Interp] See Morphology (05/22/22 11:25 AM) Normal [facility] Platelet mean volume (Bld) [Entitic vol] 8.2 fL Normal 6.4 - 10.8 fL [facility] Platelets (Bld) [#/Vol] 321.0 E9/L Normal 150.0 - 500.0 E9/L [facility] RBC (Bld) [#/Vol] 5.1 E12/L Normal 4.3 - 5.9 E12/L [facility] Target cells LM Ql (Bld) Present (05/22/22 11:25 AM) Normal [facility] WBC corrected for nucl RBC Auto (Bld) [#/Vol] 15.5 E9/L High 4.0 - 11.0 E9/L [facility] HEMATOLOGYOrdered By: SYSTEM SYSTEM on 05-22-2022 Basophils/100 WBC (Bld) 1.3 % Normal 0.0 - 2.0 % [facility] Basophils/Leukocytes Auto (Bld) [Pure # fraction] 0.2 E9/L Normal 0.0 - 0.2 E9/L [facility] Eosinophils/100 WBC (Bld) 0.2 % Normal 0.0 - 8.0 % [facility] Eosinophils/Leukocyt es Auto (Bld) [Pure # fraction] 0.0 E9/L Normal 0.0 - 0.5 E9/L [facility] Lymphocytes/100 WBC (Bld) 6.5 % Low 14.0 - 50.0 % [facility] Lymphocytes/Leukocyt es Auto (Bld) [Pure # fraction] 1.0 E9/L Normal 1.0 - 4.0 E9/L [facility] Monocytes/100 WBC (Bld) 6.8 % Normal 4.0 - 14.0 % [facility] Monocytes/Leukocytes Auto (Bld) [Pure # fraction] 1.1 E9/L High 0.2 - 1.0 E9/L [facility] Neutrophils/100 WBC (Bld) 85.2 % High 36.0 - 75.0 % [facility] Neutrophils/Leukocyt es Auto (Bld) [Pure # fraction] 13.2 E9/L High 2.0 - 7.5 E9/L [facility] URINALYSISOrdered By: Gold Rivera on 05-22-2022 Bilirubin Ql (U) Negative (05/22/22 12:22 PM) Normal Negative [facility] UA Auto SS Clarity (U) Clear (05/22/22 12:22 PM) Normal Clear [facility]A Auto SS Color (U) Yellow (05/22/22 12:22 PM) Normal Yellow [facility]A Auto SS Epithelial cells.squamous LM.HPF (Urine sed) [#/Area] 0-2 /HPF Normal 0-2/HPF [facility]A [facility] SS Glucose Test strip (U) [Mass/Vol] Negative (05/22/22 12:22 PM) Normal Negative [facility] UA Auto SS Hemoglobin Ql (U) 1+ *ABN* (05/22/22 12:22 PM) Invalid Interpretation Code Negative [facility] UA Auto SS Ketones (U) [Mass/Vol] Negative (05/22/22 12:22 PM) Normal Negative [facility] UA Auto SS Crawford.plasma/Lithi um.RBC (Bld) [Mass ratio] 4-20 /HPF Normal 0-3/HPF [facility] UA Auto SS Nitrite Ql (U) Negative (05/22/22 12:22 PM) Normal Negative [facility] UA Auto SS pH (U) 8.0 *NA* (05/22/22 12:22 PM) Invalid Interpretation Code 5.0 - 9.0 [facility]A Auto SS Protein (U) [Mass/Vol] 2+ *ABN* (05/22/22 12:22 PM) Invalid Interpretation Code Negative [facility] UA Auto SS Specific gravity (U) [Rel density] 1.015 *NA* (05/22/22 12:22 PM) Invalid Interpretation Code 1.005 - 1.030 [facility] UA Auto SS UA Spec Desc Aponte (05/22/22 12:22 PM) Normal [facility] UA Auto SS Urobilinogen Qn (U) 1.7294745 {Cesar'U}/dL Normal 0.0 - 1.0 EU/dL [facility] UA Auto SS WBC Auto Ql (U) Negative (05/22/22 12:22 PM) Normal Negative [facility] UA Auto SS WBC LM.HPF (Urine sed) [#/Area] 0-5 /HPF Normal 0-5/HPF [facility] UA Auto SS Progress Noteson 04-28-2022 Detective Chief Authentication Interface Message Text EMERGENCY TRIAGE, TREAT AND TRANSPORT (ET3) DOCUMENTATION OF TELEHEALTH VISIT Date / Time: 04/28/2022 / 1199 Name: Hien Johnson : 1960 SSN: [id number] EMS Agency: [facility] [x] Verbal consent obtained [] Implied consent - patient with potential emergency medical condition requiring assessment of capacity to refuse treatment and/or transport VITAL SIGNS: see flowsheet documentation Reason for Telehealth Visit: Chief Complaint Patient presents with Fall History of Present Ilness: Pleasant 61 year old male , walking in to dialysis, trip at door threshold , sliding down on his left hip area, slowing fall with using his cane. Denies hitting head. No LOC. Did not land on any outstretched hand. Denies pain or injury from fall. Otherwise in normal state of health today and feeling at his baseline. No other complaints. Additional pertinent PMHx, SocHx, FamHx: Pmhx: renal failure, on HD, CAD, DVT, on coumadin Review of Systems: Denies the following: Headache, neck pain, back pain, dizziness, lightheadedness, chest pain, cough, difficulty breathing, fever, nausea/vomiting, dysuria, leg pain or swelling, weakness. No recent falls or injury. Exam: General: Awake, no distress, able to ambulate without difficulty after fall. ENT: normocephalic, atraumatic Pulmonary: No respiratory distress Cardiovascular: Well perfused Neurologic: Oriented to person, place, time and events. Moving all extremities equally. Psychiatric: Appropriate. Good insight and judgement. Skin: EMS inspected left hip area and no abrasion/hematoma/ecchymo sis noted. Medical Decision Making: Pleasant 61 year old male with fall. Does not appear to have any acute injury and is without complaints. Pt does not need any ED eval at this time. Pt cleared to continue HD today. Pt advised on tylenol prn pain, avoid asa/ibuprofen. Advised to use ice packs for discomfort. Advised to call back if any hematoma develops that is expanding or causing significant pain. No further questions or request from patient or ems crew. Disposition Supported by Telehealth Assessment: ET3 transport decisions: Treat in place EMS Disposition Reported: Same ET3 Encounter Completed by: Rasheed Zhang MD Normal [employer] System Complete Blood Count Auto Di ffon 04-24-2022 Basophils (Bld) [#/Vol] 0.1 10*3/uL Normal 0.0-0.2 [facility] Comment on above: Result Comment: PERF ORMED BY:[address] [place], [place] [phone] MEDICAL DIRECTORISRAEL CHAN M.D. Performed By: #### C BC ####[id number] [place] [address] [facility] Basophils/100 WBC (Bld) 1.0 % Normal . [facility] Comment on above: Performed By: #### C BC ####[id number] [place] [id number] [facility] Eosinophils (Bld) [#/Vol] 0.1 10*3/uL Normal 0.0-0.45 [facility] Comment on above: Performed By: #### C BC ####[address] Eosinophils/100 WBC (Bld) 1.0 % Normal . [facility] Comment on above: Performed By: #### C BC ####[address] Erythrocyte distribution width (RBC) [Ratio] 20.2 % High 12.0-14.8 [facility] Comment on above: Performed By: #### C BC ####[address] Hematocrit (Bld) [Volume fraction] 26.9 % Low 38.8-50.0 [facility] Comment on above: Performed By: #### C BC ####[address] Hemoglobin (Bld) [Mass/Vol] 8.5 g/dL Low 13.0-17.0 [facility] Comment on above: Performed By: #### C BC ####[address] Lymphocytes (Bld) [#/Vol] 1.0 10*3/uL Normal 1.00-4.8 [facility] Comment on above: Performed By: #### C BC ####[address] Lymphocytes/100 WBC (Bld) 12.2 % Normal . [facility] Comment on above: Performed By: #### C BC ####[address] MCH (RBC) [Entitic mass] 24.6 pg Low 27.5-35.2 [facility] Comment on above: Performed By: #### C BC ####[address] MCV (RBC) [Entitic vol] 77.5 fL Low 83.5-101 [facility] Comment on above: Performed By: #### C BC ####[address] [id number] [facility] Mean Corpuscular HGB Conc 31.7 g/dL Low 32.5-35.6 [facility] Comment on above: Performed By: #### C BC ####[id number] [facility] Monocytes (Bld) [#/Vol] 1.3 10*3/uL High 0.0-0.8 [facility] Comment on above: Performed By: #### C BC ####[id number] [facility] Monocytes/100 WBC (Bld) 15.7 % Normal . [facility] Comment on above: Performed By: #### C BC ####[id number] [facility] Neutrophils (Bld) [#/Vol] 5.9 10*3/uL Normal 1.8-7.7 [facility] Comment on above: Performed By: #### C BC ####[id number] [facility] Neutrophils/100 WBC (Bld) 70.1 % Normal . [facility] Comment on above: Performed By: #### C BC ####[id number] [facility] Nucleated RBC/100 WBC (Bld) [Ratio] 0.8 % High 0-0.5 [facility] Comment on above: Performed By: #### C BC ####[address] [address] [facility] Platelet mean volume (Bld) [Entitic vol] 8.8 fL Normal 6.6-10.1 [facility] Comment on above: Performed By: #### C BC ####[address] [address] [facility] Platelets (Bld) [#/Vol] 371 10*3/uL Normal 150-450 [facility] Comment on above: Performed By: #### C BC ####[facility] [place] [address] [facility] RBC (Bld) [#/Vol] 3.47 10*6/uL Low 3.90-5.60 [facility] Comment on above: Performed By: #### C BC ####[facility] [place] [address] [facility] WBC (Bld) [#/Vol] 8.4 10*3/uL Normal 4.5-11.0 [facility] Comment on above: Performed By: #### C BC ####[address] [place] [address] [facility] Glucose Poct Glucometerson 1 Glucose [Mass/Vol] 141 mg/dL Normal [facility] Comment on above: Result Comment: [facility] Glucose Reference Range is dependent on time and content of last meal. Glucose of more than 200 mg/dL in a nonstressed, ambulatory subject supports the diagnosis of Diabetes Mellitus. Performed By: #### G LULS ####Point of Care testing, Glucose [Mass/Vol] 116 mg/dL Normal [facility] Comment on above: Result Comment: [place] Glucose Reference Range is dependent on time and content of last meal. Glucose of more than 200 mg/dL in a nonstressed, ambulatory subject supports the diagnosis of Diabetes Mellitus.PERFORMED BY:[address] [place], [place] [phone] MEDICAL DIRECTORISRAEL CHAN M.D. Performed By: #### G LULS ####Point of Care testing, Commemt1 Glu2: Cleaned Meter Normal [facility] Comment on above: Result Comment: PERF ORMED BY:[address] [place], [place] [id number] MEDICAL DIANA CHAN M.D. Performed By: #### G LULS ####Point of Care testing, Glucose [Mass/Vol] 125 mg/dL Normal [facility] Comment on above: Result Comment: [place] Glucose Reference Range is dependent on time and content of last meal. Glucose of more than 200 mg/dL in a nonstressed, ambulatory subject supports the diagnosis of Diabetes Mellitus. Performed By: #### G KATHERINE ####Point of Care testing, Prothrombin Time INRon 04-24 INR Coag (PPP) [Relative time] 1.7 {INR} Normal [facility] Comment on above: Result Comment: INR Therapeutic Range A) Pre- and Peroperative OAT started two weeks before surgery. NOT HIP SURGERY: 1.5 - 2.5 HIP SURGERY: 2 - 3 B) Primary and secondary prevention of venous THROMBOSIS: 2 - 3 C) Active venous thrombosis, pulmonary embolism and prevention of recurrent venous thrombosis: 2 - 3 D) Prevention of arterial thromboembolism including patients with mechanical heart valves: 3 - 4.5PERFORMED BY:[address] [place], [place] [phone] MEDICAL DIRECTORISRAEL CHAN M.D. Performed By: #### P T ####[id number] [facility] PT Coag (PPP) [Time] 19.3 s High 9.0-12.9 [facility] Comment on above: Performed By: #### P T ####[id number] [facility] Renal Function Panelon 04-24 Albumin [Mass/Vol] 2.1 g/dL Low 3.2-5.5 [facility] Comment on above: Performed By: #### R ENAL ####[address] [id number] [facility] Anion gap [Moles/Vol] 14.2 mmol/L Normal 6.0-15.0 [facility] Comment on above: Performed By: #### R ENAL ####[id number] [facility] Calcium [Mass/Vol] 7.9 mg/dL Low 8.2-10.2 [facility] Comment on above: Performed By: #### R ENAL ####[facility] [place] [address] [facility] Chloride [Moles/Vol] 98 mmol/L Normal 95-114 [facility] Comment on above: Performed By: #### R ENAL ####[id number] [facility] CO2 [Moles/Vol] 27.2 mmol/L Normal 22.0-30.0 [facility] Comment on above: Performed By: #### R ENAL ####[address] [id number] [facility] Creatinine [Mass/Vol] 3.08 mg/dL High 0.64-1.27 [facility] Comment on above: Performed By: #### R ENAL ####[id number] [facility] Creatinine Clr Calc Pharmacy 34.38 [facility] Comment on above: Result Comment: PERF ORMED BY:[address] [place] [phone] MEDICAL DIRECTORISRAEL CHAN M.D. Performed By: #### R ENAL ####[id number] [facility] Estimated GFR ( Zakiya 25 [facility] Comment on above: Result Comment: GFR estimated reference range: According to KDOQI guidelines, <60 ml/min/1.73m2 is sufficient to diagnose a patient with chronic kidney disease. Performed By: #### R ENAL ####[id number] [facility] Estimated GFR (Non- Am 21 [facility] Comment on above: Performed By: #### R ENAL ####[id number] [facility] Glucose [Mass/Vol] 110 mg/dL High 70-100 [facility] Comment on above: Result Comment: [place] Glucose Reference Range is dependent on time and content of last meal. Glucose of more than 200 mg/dL in a nonstressed, ambulatory subject supports the diagnosis of Diabetes Mellitus. ADA recommended reference range Performed By: #### R ENAL ####[address] [place] [address] [facility] Phosphate [Mass/Vol] 3.6 mg/dL Normal 2.5-4.6 [facility] Comment on above: Performed By: #### R ENAL ####[address] [place] [address] [facility] Potassium [Moles/Vol] 4.4 mmol/L Normal 3.5-5.1 [facility] Comment on above: Performed By: #### R ENAL ####[address] [address] [facility] Sodium [Moles/Vol] 135 mmol/L Low 136-146 [facility] Comment on above: Performed By: #### R ENAL ####[address] [address] [facility] Urea nitrogen [Mass/Vol] 32 mg/dL High 9-23 [facility] Comment on above: Performed By: #### R ENAL ####[address] [address] [facility] Troponin I High Sensitivityo n 04-24-2022 Troponin I High Sensitivity 27 pg/mL High 0-20 [facility] Comment on above: Order Comment: Comme nt add PT IS DOWN IN DIALYSIS AJW Result Comment: PERF ORMED BY:[address] [address] [place], [place] [phone] MEDICAL DIRECTORISRAEL CHAN M.D. Performed By: #### H S TROP ####[address] [address] [facility] ECG 12 lead ECGon 04-23-2022 ECG [address] [facility] Glucose Poct Glucometerson 1 Commemt1 Glu2: Cleaned Meter Normal [facility] Comment on above: Result Comment: PERF ORMED BY:[address] [address] [place], [place] [phone] MEDICAL DIRECTORISRAEL CHAN M.D. Performed By: #### G LULS ####Point of Care testing, Glucose [Mass/Vol] 163 mg/dL Normal [facility] Comment on above: Result Comment: [place] om Glucose Reference Range is dependent on time and content of last meal. Glucose of more than 200 mg/dL in a nonstressed, ambulatory subject supports the diagnosis of Diabetes Mellitus. Performed By: #### G LULS ####Point of Care testing, Glucose [Mass/Vol] 152 mg/dL Normal [facility] Comment on above: Result Comment: [place] om Glucose Reference Range is dependent on time and content of last meal. Glucose of more than 200 mg/dL in a nonstressed, ambulatory subject supports the diagnosis of Diabetes Mellitus.PERFORMED BY:[address] [place], [place] [phone] MEDICAL DIRECTORISRAEL CHAN M.D. Performed By: #### G LULS ####Point of Care testing, Glucose [Mass/Vol] 140 mg/dL Normal [facility] Comment on above: Result Comment: [place] om Glucose Reference Range is dependent on time and content of last meal. Glucose of more than 200 mg/dL in a nonstressed, ambulatory subject supports the diagnosis of Diabetes Mellitus.PERFORMED BY:[address] [address] [place], [place] [phone] MEDICAL DIANA CHAN M.D. Performed By: #### G LULS ####Point of Care testing, Commemt1 Glu2: Cleaned Meter Normal [facility] Comment on above: Result Comment: PERF ORMED BY:[address] [place], [place] [phone] MEDICAL DIRECTORISRAEL CHAN M.D. Performed By: #### G LULS ####Point of Care testing, Glucose [Mass/Vol] 123 mg/dL Normal [facility] Comment on above: Result Comment: [place] om Glucose Reference Range is dependent on time and content of last meal. Glucose of more than 200 mg/dL in a nonstressed, ambulatory subject supports the diagnosis of Diabetes Mellitus. Performed By: #### G LULS ####Point of Care testing, Hemogram CBC Without Diffon 04-23-2022 Erythrocyte distribution width (RBC) [Ratio] 20.2 % High 12.0-14.8 [facility] Comment on above: Performed By: #### C BCNO ####[id number] [place] [address] [facility] Hematocrit (Bld) [Volume fraction] 25.6 % Low 38.8-50.0 [facility] Comment on above: Performed By: #### C BCNO ####[address] [address] [facility] Hemoglobin (Bld) [Mass/Vol] 8.1 g/dL Low 13.0-17.0 [facility] Comment on above: Performed By: #### C BCNO ####[address] [address] [facility] MCH (RBC) [Entitic mass] 24.5 pg Low 27.5-35.2 [facility] Comment on above: Performed By: #### C BCNO ####[address] [address] [facility] MCV (RBC) [Entitic vol] 77.1 fL Low 83.5-101 [facility] Comment on above: Performed By: #### C BCNO ####[address] [address] [facility] Mean Corpuscular HGB Conc 31.8 g/dL Low 32.5-35.6 [facility] Comment on above: Performed By: #### C BCNO ####[address] [address] [facility] Platelet mean volume (Bld) [Entitic vol] 8.6 fL Normal 6.6-10.1 [facility] Comment on above: Result Comment: PERF ORMED BY:[address] [place], [place] [phone] MEDICAL DIRECTORISRAEL CHAN M.D. Performed By: #### C BCNO ####[address] [place] [address] [facility] Platelets (Bld) [#/Vol] 273 10*3/uL Normal 150-450 [facility] Comment on above: Performed By: #### C BCNO ####[address] [address] [facility] RBC (Bld) [#/Vol] 3.32 10*6/uL Low 3.90-5.60 [facility] Comment on above: Performed By: #### C BCNO ####[address] [id number] [facility] WBC (Bld) [#/Vol] 7.9 10*3/uL Normal 4.1-10.5 [facility] Comment on above: Performed By: #### C BCNO ####[id number] [facility] Prothrombin Time INRon 04-23 INR Coag (PPP) [Relative time] 1.7 {INR} Normal [facility] Comment on above: Result Comment: INR Therapeutic Range A) Pre- and Peroperative OAT started two weeks before surgery. NOT HIP SURGERY: 1.5 - 2.5 HIP SURGERY: 2 - 3 B) Primary and secondary prevention of venous THROMBOSIS: 2 - 3 C) Active venous thrombosis, pulmonary embolism and prevention of recurrent venous thrombosis: 2 - 3 D) Prevention of arterial thromboembolism including patients with mechanical heart valves: 3 - 4.5PERFORMED BY:[address] [address] [address] [place], [place] [phone] MEDICAL DIANA CHAN M.D. Performed By: #### P T ####[address] [address] [facility] PT Coag (PPP) [Time] 19.1 s High 9.0-12.9 [facility] Comment on above: Performed By: #### P T ####[address] [address] [facility] Renal Function Panelon 04-23 Albumin [Mass/Vol] 2.1 g/dL Low 3.2-5.5 [facility] Comment on above: Performed By: #### R ENAL ####[facility] [id number] [place] [address] [facility] Anion gap [Moles/Vol] 13.1 mmol/L Normal 6.0-15.0 [facility] Comment on above: Performed By: #### R ENAL ####[facility] [id number] [place] [address] [facility] Calcium [Mass/Vol] 7.9 mg/dL Low 8.2-10.2 [facility] Comment on above: Performed By: #### R ENAL ####[id number] [place] [address] [facility] Chloride [Moles/Vol] 97 mmol/L Normal 95-114 [facility] Comment on above: Performed By: #### R ENAL ####[id number] [place] [address] [facility] CO2 [Moles/Vol] 28.8 mmol/L Normal 22.0-30.0 [facility] Comment on above: Performed By: #### R ENAL ####[id number] [place] [address] [facility] Creatinine [Mass/Vol] 2.84 mg/dL High 0.64-1.27 [facility] Comment on above: Performed By: #### R ENAL ####[id number] [place] [address] [facility] Creatinine Clr Calc Pharmacy 37.[address] [facility] Comment on above: Result Comment: PERF ORMED BY:[address] [place], [place] [phone] MEDICAL DIRECTORISRAEL CHAN M.D. Performed By: #### R ENAL ####[id number] [place] [address] [facility] Estimated GFR ( Zakiya [address] [facility] Comment on above: Result Comment: GFR estimated reference range: According to KDOQI guidelines, <60 ml/min/1.73m2 is sufficient to diagnose a patient with chronic kidney disease. Performed By: #### R ENAL ####[facility] [id number] [place] [address] [facility] Estimated GFR (Non- Am [address] [facility] Comment on above: Performed By: #### R ENAL ####[id number] [place] [address] [facility] Glucose [Mass/Vol] 127 mg/dL High 70-100 [facility] Comment on above: Result Comment: [place] Glucose Reference Range is dependent on time and content of last meal. Glucose of more than 200 mg/dL in a nonstressed, ambulatory subject supports the diagnosis of Diabetes Mellitus. ADA recommended reference range Performed By: #### R ENAL ####[address] [address] [facility] Phosphate [Mass/Vol] 3.1 mg/dL Normal 2.5-4.6 [facility] Comment on above: Performed By: #### R ENAL ####[address] [address] [facility] Potassium [Moles/Vol] 3.9 mmol/L Normal 3.5-5.1 [facility] Comment on above: Performed By: #### R ENAL ####[address] [address] [facility] Sodium [Moles/Vol] 135 mmol/L Low 136-146 [facility] Comment on above: Performed By: #### R ENAL ####[address] [address] [facility] Urea nitrogen [Mass/Vol] 27 mg/dL High 9-23 [facility] Comment on above: Performed By: #### R ENAL ####[address] [address] [facility] Glucose Poct Glucometerson 1 Commemt1 Glu2: Cleaned Meter Normal [facility] Comment on above: Result Comment: PERF ORMED BY:[address] [place], [place] [phone] MEDICAL DIRECTORISRAEL CHAN M.D. Performed By: #### G LULS ####Point of Care testing, Glucose [Mass/Vol] 175 mg/dL Normal [facility] Comment on above: Result Comment: [place] om Glucose Reference Range is dependent on time and content of last meal. Glucose of more than 200 mg/dL in a nonstressed, ambulatory subject supports the diagnosis of Diabetes Mellitus. Performed By: #### G LULS ####Point of Care testing, Glucose [Mass/Vol] 157 mg/dL Normal [facility] Comment on above: Result Comment: [place] om Glucose Reference Range is dependent on time and content of last meal. Glucose of more than 200 mg/dL in a nonstressed, ambulatory subject supports the diagnosis of Diabetes Mellitus.PERFORMED BY:[address] [place], [place] [phone] MEDICAL DIRECTORISRAEL CHAN M.D. Performed By: #### G LULS ####Point of Care testing, Glucose [Mass/Vol] 152 mg/dL Normal [facility] Comment on above: Result Comment: [place] om Glucose Reference Range is dependent on time and content of last meal. Glucose of more than 200 mg/dL in a nonstressed, ambulatory subject supports the diagnosis of Diabetes Mellitus.PERFORMED BY:[address] [place], [place] [phone] MEDICAL DIANA CHAN M.D. Performed By: #### G LULS ####Point of Care testing, Glucose [Mass/Vol] 109 mg/dL Normal [facility] Comment on above: Result Comment: [place] Glucose Reference Range is dependent on time and content of last meal. Glucose of more than 200 mg/dL in a nonstressed, ambulatory subject supports the diagnosis of Diabetes Mellitus.PERFORMED BY:[address] [place], [place] [phone] MEDICAL DIANA CHAN M.D. Performed By: #### G LULS ####Point of Care testing, Prothrombin Time INRon 04-22 INR Coag (PPP) [Relative time] 1.7 {INR} Normal [facility] Comment on above: Result Comment: INR Therapeutic Range A) Pre- and Peroperative OAT started two weeks before surgery. NOT HIP SURGERY: 1.5 - 2.5 HIP SURGERY: 2 - 3 B) Primary and secondary prevention of venous THROMBOSIS: 2 - 3 C) Active venous thrombosis, pulmonary embolism and prevention of recurrent venous thrombosis: 2 - 3 D) Prevention of arterial thromboembolism including patients with mechanical heart valves: 3 - 4.5PERFORMED BY:[address] [place], [place] [phone] MEDICAL DIRECTORISRAEL CHAN M.D. Performed By: #### P T ####[id number] [facility] PT Coag (PPP) [Time] 19.9 s High 9.0-12.9 [facility] Comment on above: Performed By: #### P T ####[id number] [facility] Comprehensive Metabolic Pane maude 04-21-2022 Albumin [Mass/Vol] 2.0 g/dL Low 3.2-5.5 [facility] Comment on above: Performed By: #### C MP ####[id number] [facility] Albumin/Globulin [Mass ratio] 0.5 {ratio} Normal [facility] Comment on above: Performed By: #### C MP ####[id number] [facility] ALP [Catalytic activity/Vol] 142 U/L High 32-92 [facility] Comment on above: Performed By: #### C MP ####[address] [address] [facility] ALT [Catalytic activity/Vol] 9 U/L Low 10-60 [facility] Comment on above: Performed By: #### C MP ####[id number] [facility] Anion gap [Moles/Vol] 11.0 mmol/L Normal 6.0-15.0 [facility] Comment on above: Performed By: #### C MP ####[id number] [place] [address] [facility] AST [Catalytic activity/Vol] 22 U/L Normal 10-42 [facility] Comment on above: Performed By: #### C MP ####[address] [address] [facility] Bilirubin [Mass/Vol] 1.2 mg/dL Normal 0.3-1.2 [facility] Comment on above: Performed By: #### C MP ####[address] [address] [facility] Calcium [Mass/Vol] 7.7 mg/dL Low 8.2-10.2 [facility] Comment on above: Performed By: #### C MP ####[address] [address] [facility] Chloride [Moles/Vol] 96 mmol/L Normal 95-114 [facility] Comment on above: Performed By: #### C MP ####[address] [address] [facility] CO2 [Moles/Vol] 28.4 mmol/L Normal 22.0-30.0 [facility] Comment on above: Performed By: #### C MP ####[address] [address] [facility] Creatinine [Mass/Vol] 3.26 mg/dL High 0.64-1.27 [facility] Comment on above: Performed By: #### C MP ####[address] [address] [facility] Creatinine Clr Calc Pharmacy 32.12 [facility] Comment on above: Result Comment: PERF ORMED BY:[address] [address] [place], [place] [phone] MEDICAL DIANA CHAN M.D. Performed By: #### C MP ####[address] [address] [facility] Estimated GFR ( Zakiya [address] [facility] Comment on above: Result Comment: GFR estimated reference range: According to KDOQI guidelines, <60 ml/min/1.73m2 is sufficient to diagnose a patient with chronic kidney disease. Performed By: #### C MP ####[address] [address] [facility] Estimated GFR (Non- Am [address] [facility] Comment on above: Performed By: #### C MP ####[address] [address] [facility] Globulin (S) [Mass/Vol] 4.3 g/dL [facility] Comment on above: Performed By: #### C MP ####[address] [address] [facility] Glucose [Mass/Vol] 115 mg/dL High 70-100 [facility] Comment on above: Result Comment: [place] Glucose Reference Range is dependent on time and content of last meal. Glucose of more than 200 mg/dL in a nonstressed, ambulatory subject supports the diagnosis of Diabetes Mellitus. ADA recommended reference range Performed By: #### C MP ####[address] [address] [facility] Potassium [Moles/Vol] 3.4 mmol/L Low 3.5-5.1 [facility] Comment on above: Performed By: #### C MP ####[address] [address] [facility] Protein [Mass/Vol] 6.3 g/dL Normal 6.1-7.9 [facility] Comment on above: Performed By: #### C MP ####[address] [address] [facility] Sodium [Moles/Vol] 132 mmol/L Low 136-146 [facility] Comment on above: Performed By: #### C MP ####[address] [address] [facility] Urea nitrogen [Mass/Vol] 34 mg/dL High 9-23 [facility] Comment on above: Performed By: #### C MP ####[address] [address] [facility] Glucose Poct Glucometerson 0 04-21-2022 Commemt1 Glu2: Cleaned Meter [facility] Comment on above: Result Comment: PERF ORMED BY:[address] [place], [place] [phone] MEDICAL DIRECTORISRAEL CHAN M.D. Performed By: #### G LULS ####Point of Care testing, Glucose [Mass/Vol] 143 mg/dL Normal [facility] Comment on above: Result Comment: [place] om Glucose Reference Range is dependent on time and content of last meal. Glucose of more than 200 mg/dL in a nonstressed, ambulatory subject supports the diagnosis of Diabetes Mellitus. Performed By: #### G LULS ####Point of Care testing, Commemt1 Glu2: Cleaned Meter [facility] Comment on above: Result Comment: PERF ORMED BY:[address] [address] [place] [phone] MEDICAL DIRECTORISRAEL CHAN M.D. Performed By: #### G LULS ####Point of Care testing, Glucose [Mass/Vol] 90 mg/dL Normal [facility] Comment on above: Result Comment: [place] om Glucose Reference Range is dependent on time and content of last meal. Glucose of more than 200 mg/dL in a nonstressed, ambulatory subject supports the diagnosis of Diabetes Mellitus. Performed By: #### G LULS ####Point of Care testing, Commemt1 Glu2: Cleaned Meter [facility] Comment on above: Result Comment: PERF ORMED BY:[address] [address] [place], [place] [phone] MEDICAL DIRECTORISRAEL CHAN M.D. Performed By: #### G LULS ####Point of Care testing, Glucose [Mass/Vol] 118 mg/dL Normal [facility] Comment on above: Result Comment: [place] om Glucose Reference Range is dependent on time and content of last meal. Glucose of more than 200 mg/dL in a nonstressed, ambulatory subject supports the diagnosis of Diabetes Mellitus. Performed By: #### G LULS ####Point of Care testing, Prothrombin Time INRon 04-21 INR Coag (PPP) [Relative time] 1.8 {INR} Normal [facility] Comment on above: Order Comment: PER C NS I SPOKE WITH LICENSED PHYSICAL THERAPIST FRANK ARCE IM SENDING HER THE TUBE AND LABEL Result Comment: INR Therapeutic Range A) Pre- and Peroperative OAT started two weeks before surgery. NOT HIP SURGERY: 1.5 - 2.5 HIP SURGERY: 2 - 3 B) Primary and secondary prevention of venous THROMBOSIS: 2 - 3 C) Active venous thrombosis, pulmonary embolism and prevention of recurrent venous thrombosis: 2 - 3 D) Prevention of arterial thromboembolism including patients with mechanical heart valves: 3 - 4.5PERFORMED BY:[address] [place], [place] [phone] MEDICAL DIRECTORISRAEL CHAN M.D. Performed By: #### P T ####[address] PT Coag (PPP) [Time] 20.6 s High 9.0-12.9 [facility] Comment on above: Order Comment: PER C NS I SPOKE WITH LICENSED PHYSICAL THERAPIST FRANK ARCE IM SENDING HER THE TUBE AND LABEL Performed By: #### P T ####[address] Scan and CBCon 04-21-2022 Anisocytosis Ql (Bld) Moderate Normal [facility] Comment on above: Performed By: #### S CAN CBC ####[address] Basophils (Bld) [#/Vol] 0.1 10*3/uL Normal 0.0-0.2 [facility] Comment on above: Performed By: #### S CAN CBC ####[address] Basophils/100 WBC (Bld) 0.6 % Normal . [facility] Comment on above: Performed By: #### S CAN CBC ####[address] Eosinophils (Bld) [#/Vol] 0.1 10*3/uL Normal 0.0-0.45 [facility] Comment on above: Performed By: #### S CAN CBC ####[address] Eosinophils/100 WBC (Bld) 0.8 % Normal . [facility] Comment on above: Performed By: #### S CAN CBC ####[address] Erythrocyte distribution width (RBC) [Ratio] 19.8 % High 12.0-14.8 [facility] Comment on above: Performed By: #### S CAN CBC ####[address] Hematocrit (Bld) [Volume fraction] 23.9 % Low 38.8-50.0 [facility] Comment on above: Performed By: #### S CAN CBC ####[address] Hemoglobin (Bld) [Mass/Vol] 7.7 g/dL Low 13.0-17.0 [facility] Comment on above: Performed By: #### S CAN CBC ####[address] [place] Bodies Slight Normal [facility] Comment on above: Performed By: #### S CAN CBC ####[address] Hypochromasia Moderate Normal [facility] Comment on above: Performed By: #### S CAN CBC ####[address] Lymphocytes (Bld) [#/Vol] 0.7 10*3/uL Low 1.00-4.8 [facility] Comment on above: Performed By: #### S CAN CBC ####[address] Lymphocytes/100 WBC (Bld) 7.6 % Normal . [facility] Comment on above: Performed By: #### S CAN CBC ####[address] Macrocytosis Slight Normal [facility] Comment on above: Performed By: #### S CAN CBC ####[address] MCH (RBC) [Entitic mass] 24.6 pg Low 27.5-35.2 [facility] Comment on above: Performed By: #### S CAN CBC ####[address] MCV (RBC) [Entitic vol] 76.2 fL Low 83.5-101 [facility] Comment on above: Performed By: #### S CAN CBC ####[address] Mean Corpuscular HGB Conc 32.3 g/dL Low 32.5-35.6 [facility] Comment on above: Performed By: #### S CAN CBC ####[address] Microcytosis Slight Normal [facility] Comment on above: Performed By: #### S CAN CBC ####[address] Monocytes (Bld) [#/Vol] 1.4 10*3/uL High 0.0-0.8 [facility] Comment on above: Performed By: #### S CAN CBC ####[address] Monocytes/100 WBC (Bld) 15.2 % Normal . [facility] Comment on above: Performed By: #### S CAN CBC ####[address] Neutrophils (Bld) [#/Vol] 6.8 10*3/uL Normal 1.8-7.7 [facility] Comment on above: Performed By: #### S CAN CBC ####[place] [address] [place] Neutrophils/100 WBC (Bld) 75.8 % Normal . [facility] Comment on above: Performed By: #### S CAN CBC ####[address] [address] [facility] Nucleated RBC/100 WBC (Bld) [Ratio] 1.8 % High 0-0.5 [facility] Comment on above: Performed By: #### S CAN CBC ####[address] [address] [facility] Ovalocytes Slight Normal [facility] Comment on above: Performed By: #### S CAN CBC ####[place] [id number] [facility] Platelet Estimate Normal Normal Normal [facility] Comment on above: Performed By: #### S CAN CBC ####[address] [id number] [facility] Platelet mean volume (Bld) [Entitic vol] 9.1 fL Normal 6.6-10.1 [facility] Comment on above: Performed By: #### S CAN CBC ####[place] [id number] [facility] Platelet Morphology Normal Normal Normal [facility] Comment on above: Result Comment: PERF ORMED BY:[address] [place], [place] [phone] MEDICAL DIRECTORISREAL CHAN M.D. Performed By: #### S CAN CBC ####[address] [address] [facility] Platelets (Bld) [#/Vol] 242 10*3/uL Normal 150-450 [facility] Comment on above: Performed By: #### S CAN CBC ####[place] [id number] [facility] RBC (Bld) [#/Vol] 3.13 10*6/uL Low 3.90-5.60 [facility] Comment on above: Performed By: #### S CAN CBC ####[place] [id number] [facility] Schistocytes Slight Normal [facility] Comment on above: Performed By: #### S CAN CBC ####[id number] [place] [id number] [facility] Target Cells Moderate Normal [facility] Comment on above: Performed By: #### S CAN CBC ####[id number] [place] [id number] [facility] Tear Drop Cells Slight Normal [facility] Comment on above: Performed By: #### S CAN CBC ####[place] [id number] WBC (Bld) [#/Vol] 9.0 10*3/uL Normal 4.5-11.0 [facility] Comment on above: Performed By: #### S CAN CBC ####[address] XR chest 1V portableon 04-21 XR chest 1V portable Normal [facility] Comprehensive Metabolic Pane maude 04-20-2022 Albumin [Mass/Vol] 2.0 g/dL Low 3.2-5.5 [facility] Comment on above: Performed By: #### S CAN CBC, CMP, PT ####[address] Albumin/Globulin [Mass ratio] 0.5 {ratio} [facility] Comment on above: Performed By: #### S CAN CBC, CMP, PT ####[place] [id number] [facility] ALP [Catalytic activity/Vol] 117 U/L High 32-92 [facility] Comment on above: Performed By: #### S CAN CBC, CMP, PT ####[place] [id number] [facility] ALT [Catalytic activity/Vol] 14 U/L Normal 10-60 [facility] Comment on above: Performed By: #### S CAN CBC, CMP, PT ####[place] [id number] [facility] Anion gap [Moles/Vol] 12.8 mmol/L Normal 6.0-15.0 [facility] Comment on above: Performed By: #### S CAN CBC, CMP, PT ####[id number] [place] [id number] [facility] AST [Catalytic activity/Vol] 27 U/L Normal 10-42 [facility] Comment on above: Performed By: #### S CAN CBC, CMP, PT ####[place] [id number] [facility] Bilirubin [Mass/Vol] 1.3 mg/dL High 0.3-1.2 [facility] Comment on above: Result Comment: Samp les from patients who have taken Naproxen have shown spurious elevation in Total Bilirubin levels. A metabolite of Naproxen, O-desmethylnaproxen, has been shown to interfere with the Jendrassik-Grof method for measuring Total Bilirubin. Performed By: #### S CAN CBC, CMP, PT ####[place] [id number] [facility] Calcium [Mass/Vol] 7.5 mg/dL Low 8.2-10.2 [facility] Comment on above: Performed By: #### S CAN CBC, CMP, PT ####[place] [id number] [facility] Chloride [Moles/Vol] 94 mmol/L Low 95-114 [facility] Comment on above: Performed By: #### S CAN CBC, CMP, PT ####[place] [id number] [facility] CO2 [Moles/Vol] 26.9 mmol/L Normal 22.0-30.0 [facility] Comment on above: Performed By: #### S CAN CBC, CMP, PT ####[place] [id number] [facility] Creatinine [Mass/Vol] 2.94 mg/dL High 0.64-1.27 [facility] Comment on above: Performed By: #### S CAN CBC, CMP, PT ####[place] [id number] [place] Creatinine Clr Calc Pharmacy 35.69 Normal [facility] Comment on above: Result Comment: PERF ORMED BY:[address] [place], [place] [phone] MEDICAL DIRECTORISRAEL CHAN M.D. Performed By: #### S CAN CBC, CMP, PT ####[id number] [place] [address] [facility] Estimated GFR ( Zakiya 27 [facility] Comment on above: Result Comment: GFR estimated reference range: According to KDOQI guidelines, <60 ml/min/1.73m2 is sufficient to diagnose a patient with chronic kidney disease. Performed By: #### S CAN CBC, CMP, PT ####[id number] [place] [address] [facility] Estimated GFR (Non- Am 22 [facility] Comment on above: Performed By: #### S CAN CBC, CMP, PT ####[address] [address] [facility] Globulin (S) [Mass/Vol] 4.4 g/dL [facility] Comment on above: Performed By: #### S CAN CBC, CMP, PT ####[address] [address] [facility] Glucose [Mass/Vol] 102 mg/dL High 70-100 [facility] Comment on above: Result Comment: [place] om Glucose Reference Range is dependent on time and content of last meal. Glucose of more than 200 mg/dL in a nonstressed, ambulatory subject supports the diagnosis of Diabetes Mellitus. ADA recommended reference range Performed By: #### S CAN CBC, CMP, PT ####[address] [address] [facility] Potassium [Moles/Vol] 3.7 mmol/L Normal 3.5-5.1 [facility] Comment on above: Performed By: #### S CAN CBC, CMP, PT ####[facility] [id number] [place] [address] [facility] Protein [Mass/Vol] 6.4 g/dL Normal 6.1-7.9 [facility] Comment on above: Performed By: #### S CAN CBC, CMP, PT ####[facility] [id number] [place] [address] [place] Sodium [Moles/Vol] 130 mmol/L Low 136-146 [facility] Comment on above: Performed By: #### S CAN CBC, CMP, PT ####[facility] [id number] [place] [address] [facility] Urea nitrogen [Mass/Vol] 28 mg/dL High 04-14 [facility] Comment on above: Performed By: #### S CAN CBC, CMP, PT ####[facility] [id number] [place] [address] [facility] Glucose Poct Glucometerson 0 04-20-2022 Glucose [Mass/Vol] 174 mg/dL Normal [facility] Comment on above: Result Comment: [place] om Glucose Reference Range is dependent on time and content of last meal. Glucose of more than 200 mg/dL in a nonstressed, ambulatory subject supports the diagnosis of Diabetes Mellitus.PERFORMED BY:[address] [address] [place], [place] [phone] MEDICAL DIRECTORISRAEL CHAN M.D. Performed By: #### G LULS ####Point of Care testing, Commemt1 Glu2: Cleaned Meter [facility] Comment on above: Result Comment: PERF ORMED BY:[address] [place], [place] [phone] MEDICAL DIRECTORISRAEL HCAN M.D. Performed By: #### G LULS ####Point of Care testing, Glucose [Mass/Vol] 182 mg/dL Normal [facility] Comment on above: Result Comment: [place] om Glucose Reference Range is dependent on time and content of last meal. Glucose of more than 200 mg/dL in a nonstressed, ambulatory subject supports the diagnosis of Diabetes Mellitus. Performed By: #### G LULS ####Point of Care testing, Commemt1 Glu2: Cleaned Meter [facility] Comment on above: Result Comment: PERF ORMED BY:[address] [place], [place] [phone] MEDICAL DIRECTORISRAEL CHAN M.D. Performed By: #### G LULS ####Point of Care testing, Glucose [Mass/Vol] 123 mg/dL Normal [facility] Comment on above: Result Comment: [place] om Glucose Reference Range is dependent on time and content of last meal. Glucose of more than 200 mg/dL in a nonstressed, ambulatory subject supports the diagnosis of Diabetes Mellitus. Performed By: #### G LULS ####Point of Care testing, Commemt1 Glu2: Cleaned Meter Normal [facility] Comment on above: Result Comment: PERF ORMED BY:[address] [place], [place] [phone] MEDICAL DIRECTORISRAEL CHAN M.D. Performed By: #### G LULS ####Point of Care testing, Glucose [Mass/Vol] 114 mg/dL Normal [facility] Comment on above: Result Comment: [place] om Glucose Reference Range is dependent on time and content of last meal. Glucose of more than 200 mg/dL in a nonstressed, ambulatory subject supports the diagnosis of Diabetes Mellitus. Performed By: #### G LULS ####Point of Care testing, Prothrombin Time INRon 04-20 INR Coag (PPP) [Relative time] 1.9 {INR} Normal [facility] Comment on above: Result Comment: INR Therapeutic Range A) Pre- and Peroperative OAT started two weeks before surgery. NOT HIP SURGERY: 1.5 - 2.5 HIP SURGERY: 2 - 3 B) Primary and secondary prevention of venous THROMBOSIS: 2 - 3 C) Active venous thrombosis, pulmonary embolism and prevention of recurrent venous thrombosis: 2 - 3 D) Prevention of arterial thromboembolism including patients with mechanical heart valves: 3 - 4.5PERFORMED BY:[place] [address] [place], [place] [phone] MEDICAL DIANA CHAN M.D. Performed By: #### S CAN CBC, CMP, PT ####[address] [address] [place] PT Coag (PPP) [Time] 21.2 s High 9.0-12.9 [facility] Comment on above: Performed By: #### S CAN CBC, CMP, PT ####[address] Scan and CBCon 04-20-2022 Anisocytosis Ql (Bld) Moderate Normal [facility] Comment on above: Performed By: #### S CAN CBC, CMP, PT ####[address] Basophils (Bld) [#/Vol] 0.1 10*3/uL Normal 0.0-0.2 [facility] Comment on above: Performed By: #### S CAN CBC, CMP, PT ####[address] Basophils/100 WBC (Bld) 1.1 % Normal . [facility] Comment on above: Performed By: #### S CAN CBC, CMP, PT ####[address] Eosinophils (Bld) [#/Vol] 0.1 10*3/uL Normal 0.0-0.45 [facility] Comment on above: Performed By: #### S CAN CBC, CMP, PT ####[address] Eosinophils/100 WBC (Bld) 1.4 % Normal . [facility] Comment on above: Performed By: #### S CAN CBC, CMP, PT ####[address] Erythrocyte distribution width (RBC) [Ratio] 19.4 % High 12.0-14.8 [facility] Comment on above: Performed By: #### S CAN CBC, CMP, PT ####[address] Hematocrit (Bld) [Volume fraction] 25.0 % Low 38.8-50.0 [facility] Comment on above: Performed By: #### S CAN CBC, CMP, PT ####[address] Hemoglobin (Bld) [Mass/Vol] 8.0 g/dL Low 13.0-17.0 [facility] Comment on above: Performed By: #### S CAN CBC, CMP, PT ####[address] Hypochromasia Moderate Normal [facility] Comment on above: Performed By: #### S CAN CBC, CMP, PT ####[address] Large Platelets Slight Normal [facility] Comment on above: Result Comment: PERF ORMED BY:[address] [place] [phone] MEDICAL DIRECTORISRAEL CHAN M.D. Performed By: #### S CAN CBC, CMP, PT ####[address] Lymphocytes (Bld) [#/Vol] 0.7 10*3/uL Low 1.00-4.8 [facility] Comment on above: Performed By: #### S CAN CBC, CMP, PT ####[address] Lymphocytes/100 WBC (Bld) 8.8 % Normal . [facility] Comment on above: Performed By: #### S CAN CBC, CMP, PT ####[address] Macrocytosis Slight Normal [facility] Comment on above: Performed By: #### S CAN CBC, CMP, PT ####[address] MCH (RBC) [Entitic mass] 24.6 pg Low 27.5-35.2 [facility] Comment on above: Performed By: #### S CAN CBC, CMP, PT ####[address] MCV (RBC) [Entitic vol] 76.6 fL Low 83.5-101 [facility] Comment on above: Performed By: #### S CAN CBC, CMP, PT ####[address] Mean Corpuscular HGB Conc 32.1 g/dL Low 32.5-35.6 [facility] Comment on above: Performed By: #### S CAN CBC, CMP, PT ####[address] Microcytosis Slight Normal [facility] Comment on above: Performed By: #### S CAN CBC, CMP, PT ####[address] Monocytes (Bld) [#/Vol] 1.3 10*3/uL High 0.0-0.8 [facility] Comment on above: Performed By: #### S CAN CBC, CMP, PT ####[address] Monocytes/100 WBC (Bld) 15.9 % Normal . [facility] Comment on above: Performed By: #### S CAN CBC, CMP, PT ####[address] Neutrophils (Bld) [#/Vol] 5.8 10*3/uL Normal 1.8-7.7 [facility] Comment on above: Performed By: #### S CAN CBC, CMP, PT ####[address] Neutrophils/100 WBC (Bld) 72.8 % Normal . [facility] Comment on above: Performed By: #### S CAN CBC, CMP, PT ####[address] Nucleated RBC/100 WBC (Bld) [Ratio] 2.5 % High 0-0.5 [facility] Comment on above: Performed By: #### S CAN CBC, CMP, PT ####[address] Ovalocytes Slight Normal [facility] Comment on above: Performed By: #### S CAN CBC, CMP, PT ####[address] Platelet Estimate Normal Normal Normal [facility] Comment on above: Performed By: #### S CAN CBC, CMP, PT ####[address] Platelet mean volume (Bld) [Entitic vol] 9.3 fL Normal 6.6-10.1 [facility] Comment on above: Performed By: #### S CAN CBC, CMP, PT ####[place] [id number] Platelets (Bld) [#/Vol] 204 10*3/uL Normal 150-450 [facility] Comment on above: Performed By: #### S CAN CBC, CMP, PT ####[address] RBC (Bld) [#/Vol] 3.27 10*6/uL Low 3.90-5.60 [facility] Comment on above: Performed By: #### S CAN CBC, CMP, PT ####[address] Schistocytes Slight Normal [facility] Comment on above: Performed By: #### S CAN CBC, CMP, PT ####[address] Target Cells Moderate Normal [facility] Comment on above: Performed By: #### S CAN CBC, CMP, PT ####[address] Tear Drop Cells Slight Normal [facility] Comment on above: Performed By: #### S CAN CBC, CMP, PT ####[address] WBC (Bld) [#/Vol] 7.9 10*3/uL Normal 4.5-11.0 [facility] Comment on above: Performed By: #### S CAN CBC, CMP, PT ####[facility] [address] [place] [address] [facility] Comprehensive Metabolic Pane maude 04-19-2022 Albumin [Mass/Vol] 2.1 g/dL Low 3.2-5.5 [facility] Comment on above: Performed By: #### D IFF CBC, CMP, PT ####[place] [address] [place] [address] [facility] Albumin/Globulin [Mass ratio] 0.4 {ratio} Normal [facility] Comment on above: Performed By: #### D IFF CBC, CMP, PT ####[place] [address] [place] [address] [facility] ALP [Catalytic activity/Vol] 120 U/L High 32-92 [facility] Comment on above: Performed By: #### D IFF CBC, CMP, PT ####[place] [place] [address] [facility] ALT [Catalytic activity/Vol] 22 U/L Normal 10-60 [facility] Comment on above: Performed By: #### D IFF CBC, CMP, PT ####[place] [address] [place] [address] [facility] Anion gap [Moles/Vol] 15.5 mmol/L High 6.0-15.0 [facility] Comment on above: Performed By: #### D IFF CBC, CMP, PT ####[place] [place] [address] [facility] AST [Catalytic activity/Vol] 29 U/L Normal 10-42 [facility] Comment on above: Performed By: #### D IFF CBC, CMP, PT ####[place] [place] [address] [facility] Bilirubin [Mass/Vol] 1.4 mg/dL High 0.3-1.2 [facility] Comment on above: Result Comment: Samp les from patients who have taken Naproxen have shown spurious elevation in Total Bilirubin levels. A metabolite of Naproxen, O-desmethylnaproxen, has been shown to interfere with the Jendrassik-Grof method for measuring Total Bilirubin. Performed By: #### D IFF CBC, CMP, PT ####[address] [place] [address] [facility] Calcium [Mass/Vol] 7.6 mg/dL Low 8.2-10.2 [facility] Comment on above: Performed By: #### D IFF CBC, CMP, PT ####[place] [place] [place] [address] [facility] Chloride [Moles/Vol] 92 mmol/L Low 95-114 [facility] Comment on above: Performed By: #### D IFF CBC, CMP, PT ####[address] [address] [facility] CO2 [Moles/Vol] 26.0 mmol/L Normal 22.0-30.0 [facility] Comment on above: Performed By: #### D IFF CBC, CMP, PT ####[place] [id number] [facility] Creatinine [Mass/Vol] 3.39 mg/dL High 0.64-1.27 [facility] Comment on above: Performed By: #### D IFF CBC, CMP, PT ####[place] [id number] [facility] Creatinine Clr Calc Pharmacy 31.05 [facility] Comment on above: Result Comment: PERF ORMED BY:[address] [place], [place] [phone] MEDICAL DIANA CHAN M.D. Performed By: #### D IFF CBC, CMP, PT ####[address] [address] [facility] Estimated GFR ( Zakiya 23 [facility] Comment on above: Result Comment: GFR estimated reference range: According to KDOQI guidelines, <60 ml/min/1.73m2 is sufficient to diagnose a patient with chronic kidney disease. Performed By: #### D IFF CBC, CMP, PT ####[place] [id number] [facility] Estimated GFR (Non- Am [address] [facility] Comment on above: Performed By: #### D IFF CBC, CMP, PT ####[facility] [address] [place] [address] [facility] Globulin (S) [Mass/Vol] 4.9 g/dL Normal [facility] Comment on above: Performed By: #### D IFF CBC, CMP, PT ####[facility] [id number] [place] [address] [facility] Glucose [Mass/Vol] 121 mg/dL High 70-100 [facility] Comment on above: Result Comment: [place] Glucose Reference Range is dependent on time and content of last meal. Glucose of more than 200 mg/dL in a nonstressed, ambulatory subject supports the diagnosis of Diabetes Mellitus. ADA recommended reference range Performed By: #### D IFF CBC, CMP, PT ####[address] [place] [place] [address] [facility] Potassium [Moles/Vol] 3.5 mmol/L Normal 3.5-5.1 [facility] Comment on above: Performed By: #### D IFF CBC, CMP, PT ####[place] [place] [address] [facility] Protein [Mass/Vol] 7.0 g/dL Normal 6.1-7.9 [facility] Comment on above: Performed By: #### D IFF CBC, CMP, PT ####[place] [address] [place] [address] [facility] Sodium [Moles/Vol] 130 mmol/L Low 136-146 [facility] Comment on above: Performed By: #### D IFF CBC, CMP, PT ####[place] [address] [place] [address] [facility] Urea nitrogen [Mass/Vol] 38 mg/dL High 9-23 [facility] Comment on above: Performed By: #### D IFF CBC, CMP, PT ####[facility] [address] [place] [address] [place] Diff and CBCon 04-19-2022 Anisocytosis Ql (Bld) Moderate Normal [facility] Comment on above: Performed By: #### D IFF CBC, CMP, PT ####[address] Eosinophils/100 WBC (Bld) 2 % Normal 1-3 [facility] Comment on above: Performed By: #### D IFF CBC, CMP, PT ####[address] Erythrocyte distribution width (RBC) [Ratio] 19.6 % High 12.0-14.8 [facility] Comment on above: Performed By: #### D IFF CBC, CMP, PT ####[address] Hematocrit (Bld) [Volume fraction] 26.3 % Low 38.8-50.0 [facility] Comment on above: Performed By: #### D IFF CBC, CMP, PT ####[address] Hemoglobin (Bld) [Mass/Vol] 8.4 g/dL Low 13.0-17.0 [facility] Comment on above: Performed By: #### D IFF CBC, CMP, PT ####[address] Hypochromasia Marked Normal [facility] Comment on above: Performed By: #### D IFF CBC, CMP, PT ####[address] Lymphocytes/100 WBC (Bld) 4 % Low 18-42 [facility] Comment on above: Performed By: #### D IFF CBC, CMP, PT ####[address] MCH (RBC) [Entitic mass] 24.6 pg Low 27.5-35.2 [facility] Comment on above: Performed By: #### D IFF CBC, CMP, PT ####[address] MCV (RBC) [Entitic vol] 77.1 fL Low 83.5-101 [facility] Comment on above: Performed By: #### D IFF CBC, CMP, PT ####[place] [id number] [facility] Mean Corpuscular HGB Conc 31.9 g/dL Low 32.5-35.6 [facility] Comment on above: Performed By: #### D IFF CBC, CMP, PT ####[place] [id number] [facility] Monocytes/100 WBC (Bld) 3 % Normal 2-11 [facility] Comment on above: Performed By: #### D IFF CBC, CMP, PT ####[address] Nucleated RBC/100 WBC (Bld) [Ratio] 0.2 % Normal 0-0.5 [facility] Comment on above: Performed By: #### D IFF CBC, CMP, PT ####[address] Nucleated Red Blood Cell 5 /100{WBC} High 0-0 [facility] Comment on above: Performed By: #### D IFF CBC, CMP, PT ####[place] [id number] [facility] Platelet Estimate Normal Normal Normal [facility] Comment on above: Performed By: #### D IFF CBC, CMP, PT ####[place] [id number] [facility] Platelet mean volume (Bld) [Entitic vol] 9.0 fL Normal 6.6-10.1 [facility] Comment on above: Performed By: #### D IFF CBC, CMP, PT ####[place] [id number] [facility] Platelet Morphology Normal Normal Normal [facility] Comment on above: Result Comment: PERF ORMED BY:[address] [place], [place] [phone] MEDICAL DIANA CHAN M.D. Performed By: #### D IFF CBC, CMP, PT ####[facility] [place] [address] [facility] Platelets (Bld) [#/Vol] 213 10*3/uL Normal 150-450 [facility] Comment on above: Performed By: #### D IFF CBC, CMP, PT ####[facility] [place] [address] [facility] Poikilocytosis Moderate Normal [facility] Comment on above: Performed By: #### D IFF CBC, CMP, PT ####[place] [address] [place] [address] [facility] RBC (Bld) [#/Vol] 3.41 10*6/uL Low 3.90-5.60 [facility] Comment on above: Performed By: #### D IFF CBC, CMP, PT ####[place] [address] [place] [address] [facility] Segmented neutrophils/100 WBC (Bld) 91 % High 50-70 [facility] Comment on above: Performed By: #### D IFF CBC, CMP, PT ####[address] [address] [facility] Target Cells Slight Normal [facility] Comment on above: Performed By: #### D IFF CBC, CMP, PT ####[facility] [place] [address] [facility] WBC (Bld) [#/Vol] 7.5 10*3/uL Normal 4.5-11.0 [facility] Comment on above: Performed By: #### D IFF CBC, CMP, PT ####[address] [address] [facility] Glucose Poct Glucometerson 0 04-19-2022 Glucose [Mass/Vol] 146 mg/dL Normal [facility] Comment on above: Result Comment: [facility] Glucose Reference Range is dependent on time and content of last meal. Glucose of more than 200 mg/dL in a nonstressed, ambulatory subject supports the diagnosis of Diabetes Mellitus.PERFORMED BY:[address] [place], [place] [phone] MEDICAL DIANA CHAN M.D. Performed By: #### G LULS ####Point of Care testing, Commemt1 Glu2: Cleaned Meter [facility] Comment on above: Result Comment: PERF ORMED BY:[place] [address] [place], [place] [phone] MEDICAL DIRECTORISRAEL CHAN M.D. Performed By: #### G LULS ####Point of Care testing, Glucose [Mass/Vol] 199 mg/dL Normal [facility] Comment on above: Result Comment: [place] om Glucose Reference Range is dependent on time and content of last meal. Glucose of more than 200 mg/dL in a nonstressed, ambulatory subject supports the diagnosis of Diabetes Mellitus. Performed By: #### G LULS ####Point of Care testing, Commemt1 Glu2: Cleaned Meter [facility] Comment on above: Result Comment: PERF ORMED BY:[place] [address] [place], [place] [phone] MEDICAL DIANA CHAN M.D. Performed By: #### G LULS ####Point of Care testing, Glucose [Mass/Vol] 156 mg/dL Normal [facility] Comment on above: Result Comment: [place] om Glucose Reference Range is dependent on time and content of last meal. Glucose of more than 200 mg/dL in a nonstressed, ambulatory subject supports the diagnosis of Diabetes Mellitus. Performed By: #### G LULS ####Point of Care testing, Commemt1 Glu2: Cleaned Meter [facility] Comment on above: Result Comment: PERF ORMED BY:[place] [address] [place], [place] [phone] MEDICAL DIANA CHAN M.D. Performed By: #### G LULS ####Point of Care testing, Glucose [Mass/Vol] 125 mg/dL Normal [facility] Comment on above: Result Comment: [place] om Glucose Reference Range is dependent on time and content of last meal. Glucose of more than 200 mg/dL in a nonstressed, ambulatory subject supports the diagnosis of Diabetes Mellitus. Performed By: #### G KATHERINE ####Point of Care testing, Glucose [Mass/Vol] 212 mg/dL Normal [facility] Comment on above: Result Comment: [place] om Glucose Reference Range is dependent on time and content of last meal. Glucose of more than 200 mg/dL in a nonstressed, ambulatory subject supports the diagnosis of Diabetes Mellitus.PERFORMED BY:[address] [place], [place] [phone] MEDICAL DIRECTORISRAEL CHAN M.D. Performed By: #### G KATHERINE ####Point of Care testing, Prothrombin Time INRon 04-19 INR Coag (PPP) [Relative time] 1.8 {INR} Normal [facility] Comment on above: Result Comment: INR Therapeutic Range A) Pre- and Peroperative OAT started two weeks before surgery. NOT HIP SURGERY: 1.5 - 2.5 HIP SURGERY: 2 - 3 B) Primary and secondary prevention of venous THROMBOSIS: 2 - 3 C) Active venous thrombosis, pulmonary embolism and prevention of recurrent venous thrombosis: 2 - 3 D) Prevention of arterial thromboembolism including patients with mechanical heart valves: 3 - 4.5PERFORMED BY:[place] [address] [address] [place], [place] [phone] MEDICAL DIRECTORISRAEL CHAN M.D. Performed By: #### D IFF CBC, CMP, PT ####[place] [address] [place] [address] [facility] PT Coag (PPP) [Time] 20.2 s High 9.0-12.9 [facility] Comment on above: Performed By: #### D IFF CBC, CMP, PT ####[facility] [address] [place] [address] [facility] Blood Cultureon 04-18-2022 Bacteria identified Cx Nom (Bld) per colten morales said its okay per AW NO GROWTH 5 DAYS PERFORMED BY: [facility] [address] [place] [address] PATHOLOGIST EVALUATION ANALYST ISRAEL CHAN M.D. [facility] Comment on above: Performed By: #### C UBLD ####[address] [address] [facility] Catheter Tip Cultureon 04-18 Catheter Tip Culture Normal [facility] Comment on above: Performed By: #### C UCTIP ####[address] [address] [facility] Comprehensive Metabolic Pane maude 04-18-2022 Albumin [Mass/Vol] 2.2 g/dL Low 3.2-5.5 [facility] Comment on above: Performed By: #### P HOS, CMP ####[place] [id number] [facility] Albumin/Globulin [Mass ratio] 0.4 {ratio} [facility] Comment on above: Performed By: #### P HOS, CMP ####[address] [address] [facility] ALP [Catalytic activity/Vol] 126 U/L High 32-92 [facility] Comment on above: Performed By: #### P HOS, CMP ####[address] [address] [facility] ALT [Catalytic activity/Vol] 31 U/L Normal 10-60 [facility] Comment on above: Performed By: #### P HOS, CMP ####[address] [address] [facility] Anion gap [Moles/Vol] 15.3 mmol/L High 6.0-15.0 [facility] Comment on above: Performed By: #### P HOS, CMP ####[address] [address] [facility] AST [Catalytic activity/Vol] 31 U/L Normal 10-42 [facility] Comment on above: Performed By: #### P HOS, CMP ####[address] [address] [facility] Bilirubin [Mass/Vol] 1.5 mg/dL High 0.3-1.2 [facility] Comment on above: Result Comment: Samp les from patients who have taken Naproxen have shown spurious elevation in Total Bilirubin levels. A metabolite of Naproxen, O-desmethylnaproxen, has been shown to interfere with the Jendrassik-Grof method for measuring Total Bilirubin. Performed By: #### P HOS, CMP ####[place] [address] [place] [address] [facility] Calcium [Mass/Vol] 7.5 mg/dL Low 8.2-10.2 [facility] Comment on above: Performed By: #### P HOS, CMP ####[place] [address] [place] [address] [facility] Chloride [Moles/Vol] 92 mmol/L Low 95-114 [facility] Comment on above: Performed By: #### P HOS, CMP ####[place] [address] [place] [address] [facility] CO2 [Moles/Vol] 27.4 mmol/L Normal 22.0-30.0 [facility] Comment on above: Performed By: #### P HOS, CMP ####[address] [address] [facility] Creatinine [Mass/Vol] 3.83 mg/dL Significant change up 0.64-1.27 [facility] Comment on above: Performed By: #### P HOS, CMP ####[place] [address] [place] [address] [facility] Creatinine Clr Calc Pharmacy 27.40 [facility] Comment on above: Performed By: #### P HOS, CMP ####[place] [address] [place] [address] [facility] Estimated GFR ( Zakiya 20 [facility] Comment on above: Result Comment: GFR estimated reference range: According to KDOQI guidelines, <60 ml/min/1.73m2 is sufficient to diagnose a patient with chronic kidney disease. Performed By: #### P HOS, CMP ####[place] [address] [place] [address] [facility] Estimated GFR (Non- Am 16 [facility] Comment on above: Performed By: #### P HOS, CMP ####[address] [address] [facility] Globulin (S) [Mass/Vol] 5.2 g/dL Normal [facility] Comment on above: Performed By: #### P HOS, CMP ####[address] [address] [facility] Glucose [Mass/Vol] 126 mg/dL High 70-100 [facility] [place] Comment on above: Result Comment: [place] om Glucose Reference Range is dependent on time and content of last meal. Glucose of more than 200 mg/dL in a nonstressed, ambulatory subject supports the diagnosis of Diabetes Mellitus. ADA recommended reference range Performed By: #### P HOS, CMP ####[address] [address] [facility] Potassium [Moles/Vol] 3.7 mmol/L Normal 3.5-5.1 [facility] Comment on above: Performed By: #### P HOS, CMP ####[address] [address] [facility] Protein [Mass/Vol] 7.4 g/dL Normal 6.1-7.9 [facility] [place] Comment on above: Performed By: #### P HOS, CMP ####[address] [address] [facility] Sodium [Moles/Vol] 131 mmol/L Low 136-146 [facility] [place] Comment on above: Performed By: #### P HOS, CMP ####[address] [address] [facility] Urea nitrogen [Mass/Vol] 46 mg/dL High 9-23 [facility] Comment on above: Performed By: #### P HOS, CMP ####[address] [address] [facility] Glucose Poct Glucometerson 0 04-18-2022 Glucose [Mass/Vol] 113 mg/dL Normal [facility] [place] Comment on above: Result Comment: [place] Glucose Reference Range is dependent on time and content of last meal. Glucose of more than 200 mg/dL in a nonstressed, ambulatory subject supports the diagnosis of Diabetes Mellitus.PERFORMED BY:[place] [address] [address] [place], [place] [phone] MEDICAL DIANA CHAN M.D. Performed By: #### G LULS ####Point of Care testing, Commemt1 Glu2: Cleaned Meter Normal [facility] Comment on above: Result Comment: PERF ORMED BY:[place] [address] [address] [place], [place] [phone] MEDICAL DIANA CHAN M.D. Performed By: #### G LULS ####Point of Care testing, Glucose [Mass/Vol] 132 mg/dL Normal [facility] [place] Comment on above: Result Comment: [place] Glucose Reference Range is dependent on time and content of last meal. Glucose of more than 200 mg/dL in a nonstressed, ambulatory subject supports the diagnosis of Diabetes Mellitus. Performed By: #### G LULS ####Point of Care testing, Glucose [Mass/Vol] 112 mg/dL Normal [facility] Comment on above: Result Comment: [place] Glucose Reference Range is dependent on time and content of last meal. Glucose of more than 200 mg/dL in a nonstressed, ambulatory subject supports the diagnosis of Diabetes Mellitus.PERFORMED BY:[place] [address] [address] [place], [place] [phone] MEDICAL DIANA CHAN M.D. Performed By: #### G LULS ####Point of Care testing, Glucose [Mass/Vol] 131 mg/dL Normal [facility] Comment on above: Result Comment: [place] Glucose Reference Range is dependent on time and content of last meal. Glucose of more than 200 mg/dL in a nonstressed, ambulatory subject supports the diagnosis of Diabetes Mellitus.PERFORMED BY:[place] [address] [address] [place], [place] [phone] MEDICAL DIANA CHAN M.D. Performed By: #### G LULS ####Point of Care testing, Glucose [Mass/Vol] 165 mg/dL Normal [facility] Comment on above: Result Comment: [facility] Glucose Reference Range is dependent on time and content of last meal. Glucose of more than 200 mg/dL in a nonstressed, ambulatory subject supports the diagnosis of Diabetes Mellitus.PERFORMED BY:[facility] [place], [place] [phone] MEDICAL DIRECTORISRAEL CHAN M.D. Performed By: #### G LULS ####Point of Care testing, Hepatitis Acute Panelon 03-24 HBsAg Screen Negative Normal Negative [facility] Comment on above: Order Comment: PER A W PER ajw RETIME WITH AM LABS PER RN VERNA PSW 1434 Performed By: #### H BSAB, HEPACUTE ####[facility] , Hepatitis A Antibody IgM Negative Normal Negative [facility] Comment on above: Order Comment: PER A W PER ajw RETIME WITH AM LABS PER RN VERNA PSW 1434 Performed By: #### H BSAB, HEPACUTE ####[facility] , Hepatitis B Core Antibody IgM Negative Normal Negative [facility] Comment on above: Order Comment: PER A W PER ajw RETIME WITH AM LABS PER RN VERNA PSW 1434 Performed By: #### H BSAB, HEPACUTE ####[facility] , Hepatitis C Virus Antibody <0.1 Normal 0.0-0.9 [facility] Comment on above: Order Comment: PER A W PER ajw RETIME WITH AM LABS PER RN VERNA PSW 1434 Performed By: #### H BSAB, HEPACUTE ####[facility] , Interpretation Hepatitis C Normal . [facility] Comment on above: Order Comment: PER A W PER ajw RETIME WITH AM LABS PER COLTEN GILLESPIE PSW 1434 Result Comment: Nega tive Not infected with HCV, unless recent infection is suspected or other evidence exists to indicate HCV infection. Performed By: #### H BSAB, HEPACUTE ####[facility] , Hepatitis B Surface Antibody on 04-18-2022 Hepatitis B Surface Antibody Non-Reactive Normal . [facility] Comment on above: Order Comment: PER A W PER ajw RETIME WITH AM LABS PER RN VERNA PSW 1434 Result Comment: Non Reactive: Inconsistent with immunity, less than 10 mIU/mL Reactive: Consistent with immunity, greater than 9.9 mIU/mL Performed at: - [facility] [id number] Plant Assigner: Cal Todd PhD, Phone: [phone] BY:[place] [address] [place] [place], [place] [phone] MEDICAL DIRECTORISRAEL CHAN M.D. Performed By: #### H BSAB, HEPACUTE ####[facility] , Phosphoruson 04-18-2022 Phosphate [Mass/Vol] 3.0 mg/dL Normal 2.5-4.6 [facility] Comment on above: Result Comment: PERF ORMED BY:[place] [address] [address] [place], [place] [phone] MEDICAL DIRECTORISRAEL CHAN M.D. Performed By: #### P HOS, CMP ####[place] [address] [place] Scan and CBCon 04-18-2022 Anisocytosis Ql (Bld) Marked Normal [facility] Comment on above: Performed By: #### S CAN CBC ####[place] [id number] [facility] Basophils (Bld) [#/Vol] 0.0 10*3/uL Normal 0.0-0.2 [facility] Comment on above: Performed By: #### S CAN CBC ####[place] [id number] [facility] Basophils/100 WBC (Bld) 0.4 % Normal . [facility] Comment on above: Performed By: #### S CAN CBC ####[place] [id number] [facility] Eosinophils (Bld) [#/Vol] 0.1 10*3/uL Normal 0.0-0.45 [facility] Comment on above: Performed By: #### S CAN CBC ####[address] Eosinophils/100 WBC (Bld) 0.8 % Normal . [facility] Comment on above: Performed By: #### S CAN CBC ####[address] Erythrocyte distribution width (RBC) [Ratio] 19.5 % High 12.0-14.8 [facility] Comment on above: Performed By: #### S CAN CBC ####[address] Hematocrit (Bld) [Volume fraction] 26.4 % Low 38.8-50.0 [facility] Comment on above: Performed By: #### S CAN CBC ####[address] Hemoglobin (Bld) [Mass/Vol] 8.4 g/dL Low 13.0-17.0 [facility] Comment on above: Performed By: #### S CAN CBC ####[address] Lymphocytes (Bld) [#/Vol] 0.4 10*3/uL Low 1.00-4.8 [facility] Comment on above: Performed By: #### S CAN CBC ####[address] Lymphocytes/100 WBC (Bld) 4.3 % Normal . [facility] Comment on above: Performed By: #### S CAN CBC ####[address] MCH (RBC) [Entitic mass] 24.5 pg Low 27.5-35.2 [facility] Comment on above: Performed By: #### S CAN CBC ####[address] MCV (RBC) [Entitic vol] 77.2 fL Low 83.5-101 [facility] Comment on above: Performed By: #### S CAN CBC ####[address] [address] [facility] Mean Corpuscular HGB Conc 31.7 g/dL Low 32.5-35.6 [facility] Comment on above: Performed By: #### S CAN CBC ####[address] [address] [facility] Microcytosis Slight Normal [facility] Comment on above: Performed By: #### S CAN CBC ####[address] [address] [facility] Monocytes (Bld) [#/Vol] 1.2 10*3/uL High 0.0-0.8 [facility] Comment on above: Performed By: #### S CAN CBC ####[address] [address] [facility] Monocytes/100 WBC (Bld) 13.5 % Normal . [facility] Comment on above: Performed By: #### S CAN CBC ####[address] [address] [facility] Neutrophils (Bld) [#/Vol] 7.1 10*3/uL Normal 1.8-7.7 [facility] Comment on above: Performed By: #### S CAN CBC ####[address] [address] [facility] Neutrophils/100 WBC (Bld) 81.0 % Normal . [facility] Comment on above: Performed By: #### S CAN CBC ####[address] [address] [facility] Nucleated RBC/100 WBC (Bld) [Ratio] 2.6 % High 0-0.5 [facility] Comment on above: Performed By: #### S CAN CBC ####[address] [address] [facility] Ovalocytes Slight Normal [facility] Comment on above: Performed By: #### S CAN CBC ####[place] [id number] [facility] Platelet Estimate Normal Normal Normal [facility] Comment on above: Performed By: #### S CAN CBC ####[address] [address] [facility] Platelet mean volume (Bld) [Entitic vol] 8.9 fL Normal 6.6-10.1 [facility] Comment on above: Performed By: #### S CAN CBC ####[address] [address] [facility] Platelet Morphology Normal Normal Normal [facility] Comment on above: Result Comment: PERF ORMED BY:[address] [place], [place] [phone] MEDICAL DIRECTORISRAEL CHAN M.D. Performed By: #### S CAN CBC ####[address] [address] [facility] Platelets (Bld) [#/Vol] 209 10*3/uL Normal 150-450 [facility] Comment on above: Performed By: #### S CAN CBC ####[address] [address] [facility] Poikilocytosis Moderate Normal [facility] Comment on above: Performed By: #### S CAN CBC ####[address] [address] [facility] RBC (Bld) [#/Vol] 3.43 10*6/uL Low 3.90-5.60 [facility] Comment on above: Performed By: #### S CAN CBC ####[address] [address] [facility] Target Cells Slight Normal [facility] Comment on above: Performed By: #### S CAN CBC ####[place] [id number] [facility] WBC (Bld) [#/Vol] 8.8 10*3/uL Normal 4.5-11.0 [facility] Comment on above: Performed By: #### S CAN CBC ####[place] [id number] [facility] C-Reactive Proteinon 022 C-Reactive Protein 7.7 mg/dL High 0.0-1.0 [facility] Comment on above: Result Comment: PERF ORMED BY:[place] [address] [address] [place], [place] [phone] MEDICAL DIANA CHAN M.D. Performed By: #### E SR, SCAN CBC, CRP, CMP ####[place] [id number] [place] [address] [facility] Comprehensive Metabolic Pane maude 04-17-2022 Albumin [Mass/Vol] 2.4 g/dL Low 3.2-5.5 [facility] Comment on above: Performed By: #### E SR, SCAN CBC, CRP, CMP ####[place] [id number] [facility] Albumin/Globulin [Mass ratio] 0.5 {ratio} Normal [facility] Comment on above: Performed By: #### E SR, SCAN CBC, CRP, CMP ####[address] [address] [facility] ALP [Catalytic activity/Vol] 116 U/L High 32-92 [facility] Comment on above: Performed By: #### E SR, SCAN CBC, CRP, CMP ####[address] [address] [facility] ALT [Catalytic activity/Vol] 38 U/L Normal 10-60 [facility] Comment on above: Performed By: #### E SR, SCAN CBC, CRP, CMP ####[address] [address] [facility] Anion gap [Moles/Vol] 16.6 mmol/L High 6.0-15.0 [facility] Comment on above: Performed By: #### E SR, SCAN CBC, CRP, CMP ####[address] [address] [facility] AST [Catalytic activity/Vol] 34 U/L Normal 10-42 [facility] Comment on above: Performed By: #### E SR, SCAN CBC, CRP, CMP ####[facility] [place] [address] [facility] Bilirubin [Mass/Vol] 1.3 mg/dL High 0.3-1.2 [facility] Comment on above: Result Comment: Samp les from patients who have taken Naproxen have shown spurious elevation in Total Bilirubin levels. A metabolite of Naproxen, O-desmethylnaproxen, has been shown to interfere with the Jendrassik-Grof method for measuring Total Bilirubin. Performed By: #### E SR, SCAN CBC, CRP, CMP ####[place] [address] [place] [address] [facility] Calcium [Mass/Vol] 7.4 mg/dL Low 8.2-10.2 [facility] Comment on above: Performed By: #### E SR, SCAN CBC, CRP, CMP ####[place] [address] [place] [address] [facility] Chloride [Moles/Vol] 92 mmol/L Low 95-114 [facility] Comment on above: Performed By: #### E SR, SCAN CBC, CRP, CMP ####[place] [address] [place] [address] [facility] CO2 [Moles/Vol] 24.8 mmol/L Normal 22.0-30.0 [facility] Comment on above: Performed By: #### E SR, SCAN CBC, CRP, CMP ####[place] [address] [place] [address] [facility] Creatinine [Mass/Vol] 4.85 mg/dL High 0.64-1.27 [facility] Comment on above: Performed By: #### E SR, SCAN CBC, CRP, CMP ####[place] [address] [place] [address] [place] Creatinine Clr Calc Pharmacy 22.26 [facility] Comment on above: Performed By: #### E SR, SCAN CBC, CRP, CMP ####[facility] [address] [place] [address] [facility] Estimated GFR ( Zakiya 15 [facility] Comment on above: Result Comment: GFR estimated reference range: According to KDOQI guidelines, <60 ml/min/1.73m2 is sufficient to diagnose a patient with chronic kidney disease. Performed By: #### E SR, SCAN CBC, CRP, CMP ####[place] [address] [place] [address] [facility] Estimated GFR (Non- Am [address] [facility] Comment on above: Performed By: #### E SR, SCAN CBC, CRP, CMP ####[place] [address] [place] [address] [facility] Globulin (S) [Mass/Vol] 5.1 g/dL Normal [facility] Comment on above: Performed By: #### E SR, SCAN CBC, CRP, CMP ####[place] [address] [place] [id number] [facility] Glucose [Mass/Vol] 136 mg/dL High 70-100 [facility] Comment on above: Result Comment: [place] Glucose Reference Range is dependent on time and content of last meal. Glucose of more than 200 mg/dL in a nonstressed, ambulatory subject supports the diagnosis of Diabetes Mellitus. ADA recommended reference range Performed By: #### E SR, SCAN CBC, CRP, CMP ####[address] [address] [facility] Potassium [Moles/Vol] 4.4 mmol/L Normal 3.5-5.1 [facility] Comment on above: Performed By: #### E SR, SCAN CBC, CRP, CMP ####[address] [address] [facility] Protein [Mass/Vol] 7.5 g/dL Normal 6.1-7.9 [facility] Comment on above: Performed By: #### E SR, SCAN CBC, CRP, CMP ####[address] [address] [facility] Sodium [Moles/Vol] 129 mmol/L Low 136-146 [facility] Comment on above: Performed By: #### E SR, SCAN CBC, CRP, CMP ####[address] [address] [facility] Urea nitrogen [Mass/Vol] 69 mg/dL High 9-23 [facility] Comment on above: Performed By: #### E SR, SCAN CBC, CRP, CMP ####[facility] [address] [place] [address] [facility] Erythrocyte Sedimentation Ra gurmeet 04-17-2022 ESR (Bld) [Velocity] 116 mm/h High 0-19 [facility] Comment on above: Result Comment: PERF ORMED BY:[address] [place], [place] [phone] MEDICAL DIRECTORISRAEL CHAN M.D. Performed By: #### E SR, SCAN CBC, CRP, CMP ####[facility] [id number] [place] [address] [facility] Glucose Poct Glucometerson 0 04-17-2022 Commemt1 Glu2: Cleaned Meter [facility] Comment on above: Result Comment: PERF ORMED BY:[address] [place], [place] [phone] MEDICAL DIRECTORISRAEL CHAN M.D. Performed By: #### G LULS ####Point of Care testing, Glucose [Mass/Vol] 107 mg/dL Normal [facility] Comment on above: Result Comment: [place] Glucose Reference Range is dependent on time and content of last meal. Glucose of more than 200 mg/dL in a nonstressed, ambulatory subject supports the diagnosis of Diabetes Mellitus. Performed By: #### G LULS ####Point of Care testing, Commemt1 Glu2: Cleaned Meter [facility] Comment on above: Result Comment: PERF ORMED BY:[place] [address] [place], [place] [phone] MEDICAL DIANA CHAN M.D. Performed By: #### G LULS ####Point of Care testing, Glucose [Mass/Vol] 149 mg/dL Normal [facility] Comment on above: Result Comment: [place] Glucose Reference Range is dependent on time and content of last meal. Glucose of more than 200 mg/dL in a nonstressed, ambulatory subject supports the diagnosis of Diabetes Mellitus. Performed By: #### G LULS ####Point of Care testing, Phosphoruson 04-17-2022 Phosphate [Mass/Vol] 3.9 mg/dL Normal 2.5-4.6 [facility] Comment on above: Result Comment: PERF ORMED BY:[place] [address] [address] [place], [place] [phone] MEDICAL DIRECTORISRAEL CHAN M.D. Performed By: #### P HOS ####[place] [id number] [facility] Prothrombin Time INRon 04-17 INR Coag (PPP) [Relative time] 1.5 {INR} Normal [facility] Comment on above: Result Comment: INR Therapeutic Range A) Pre- and Peroperative OAT started two weeks before surgery. NOT HIP SURGERY: 1.5 - 2.5 HIP SURGERY: 2 - 3 B) Primary and secondary prevention of venous THROMBOSIS: 2 - 3 C) Active venous thrombosis, pulmonary embolism and prevention of recurrent venous thrombosis: 2 - 3 D) Prevention of arterial thromboembolism including patients with mechanical heart valves: 3 - 4.5PERFORMED BY:[place] [address] [place], [place] [phone] MEDICAL DIANA CHAN M.D. Performed By: #### P T ####[address] [address] [facility] PT Coag (PPP) [Time] 17.1 s High 9.0-12.9 [facility] Comment on above: Performed By: #### P T ####[address] [address] [facility] Scan and CBCon 04-17-2022 Anisocytosis Ql (Bld) Moderate Normal [facility] Comment on above: Performed By: #### E SR, SCAN CBC, CRP, CMP ####[place] [id number] [facility] Basophils (Bld) [#/Vol] 0.0 10*3/uL Normal 0.0-0.2 [facility] Comment on above: Performed By: #### E SR, SCAN CBC, CRP, CMP ####[place] [id number] [facility] Basophils/100 WBC (Bld) 0.2 % Normal . [facility] Comment on above: Performed By: #### E SR, SCAN CBC, CRP, CMP ####[address] [address] [facility] Crenated RBC Slight Normal [facility] Comment on above: Performed By: #### E SR, SCAN CBC, CRP, CMP ####[place] [id number] [facility] Eosinophils (Bld) [#/Vol] 0.1 10*3/uL Normal 0.0-0.45 [facility] Comment on above: Performed By: #### E SR, SCAN CBC, CRP, CMP ####[place] [address] [facility] Eosinophils/100 WBC (Bld) 1.5 % Normal . [facility] Comment on above: Performed By: #### E SR, SCAN CBC, CRP, CMP ####[place] [id number] [facility] Erythrocyte distribution width (RBC) [Ratio] 19.7 % High 12.0-14.8 [facility] Comment on above: Performed By: #### E SR, SCAN CBC, CRP, CMP ####[place] [id number] [facility] Hematocrit (Bld) [Volume fraction] 26.4 % Low 38.8-50.0 [facility] Comment on above: Performed By: #### E SR, SCAN CBC, CRP, CMP ####[place] [id number] [facility] Hemoglobin (Bld) [Mass/Vol] 8.4 g/dL Low 13.0-17.0 [facility] Comment on above: Performed By: #### E SR, SCAN CBC, CRP, CMP ####[place] [address] [facility] Hypochromasia Moderate Normal [facility] Comment on above: Performed By: #### E SR, SCAN CBC, CRP, CMP ####[address] Lymphocytes (Bld) [#/Vol] 0.3 10*3/uL Low 1.00-4.8 [facility] Comment on above: Performed By: #### E SR, SCAN CBC, CRP, CMP ####[address] Lymphocytes/100 WBC (Bld) 3.3 % Normal . [facility] Comment on above: Performed By: #### E SR, SCAN CBC, CRP, CMP ####[address] MCH (RBC) [Entitic mass] 24.5 pg Low 27.5-35.2 [facility] Comment on above: Performed By: #### E SR, SCAN CBC, CRP, CMP ####[address] MCV (RBC) [Entitic vol] 77.1 fL Low 83.5-101 [facility] Comment on above: Performed By: #### E SR, SCAN CBC, CRP, CMP ####[address] Mean Corpuscular HGB Conc 31.8 g/dL Low 32.5-35.6 [facility] Comment on above: Performed By: #### E SR, SCAN CBC, CRP, CMP ####[address] Microcytosis Slight Normal [facility] Comment on above: Performed By: #### E SR, SCAN CBC, CRP, CMP ####[address] Monocytes (Bld) [#/Vol] 1.2 10*3/uL High 0.0-0.8 [facility] Comment on above: Performed By: #### E SR, SCAN CBC, CRP, CMP ####[address] Monocytes/100 WBC (Bld) 12.2 % Normal . [facility] Comment on above: Performed By: #### E SR, SCAN CBC, CRP, CMP ####[address] Neutrophils (Bld) [#/Vol] 8.2 10*3/uL High 1.8-7.7 [facility] Comment on above: Performed By: #### E SR, SCAN CBC, CRP, CMP ####[address] Neutrophils/100 WBC (Bld) 82.8 % Normal . [facility] Comment on above: Performed By: #### E SR, SCAN CBC, CRP, CMP ####[address] Nucleated RBC/100 WBC (Bld) [Ratio] 2.3 % High 0-0.5 [facility] Comment on above: Performed By: #### E SR, SCAN CBC, CRP, CMP ####[address] Ovalocytes Slight Normal [facility] Comment on above: Performed By: #### E SR, SCAN CBC, CRP, CMP ####[place] [id number] [facility] Platelet Estimate Normal Normal Normal [facility] Comment on above: Performed By: #### E SR, SCAN CBC, CRP, CMP ####[place] [id number] [facility] Platelet mean volume (Bld) [Entitic vol] 8.6 fL Normal 6.6-10.1 [facility] Comment on above: Performed By: #### E SR, SCAN CBC, CRP, CMP ####[place] [id number] [facility] Platelet Morphology Normal Normal Normal [facility] Comment on above: Performed By: #### E SR, SCAN CBC, CRP, CMP ####[place] [id number] [place] Platelets (Bld) [#/Vol] 206 10*3/uL Normal 150-450 [facility] Comment on above: Performed By: #### E SR, SCAN CBC, CRP, CMP ####[address] Poikilocytosis Moderate Normal [facility] Comment on above: Performed By: #### E SR, SCAN CBC, CRP, CMP ####[address] RBC (Bld) [#/Vol] 3.42 10*6/uL Low 3.90-5.60 [facility] Comment on above: Performed By: #### E SR, SCAN CBC, CRP, CMP ####[address] Schistocytes Slight Normal [facility] Comment on above: Performed By: #### E SR, SCAN CBC, CRP, CMP ####[address] Target Cells Moderate Normal [facility] Comment on above: Performed By: #### E SR, SCAN CBC, CRP, CMP ####[address] WBC (Bld) [#/Vol] 9.8 10*3/uL Normal 4.5-11.0 [facility] Comment on above: Performed By: #### E SR, SCAN CBC, CRP, CMP ####[place] [id number] [facility] Superficial Wound Cultureon 04-17-2022 Superficial Wound Culture Comment avg site Result Tab Codes Light Normal Skin Patricio 2 Days PERFORMED BY: [facility] [address] [place] [address] PATHOLOGIST EVALUATION ANALYST ISRAEL CHAN M.D. [place] [facility] Comment on above: Performed By: #### C USUP ####[address] Comprehensive Metabolic Pane maude 04-16-2022 Albumin [Mass/Vol] 2.5 g/dL Low 3.2-5.5 [facility] Comment on above: Performed By: #### P HOS, CMP ####[address] [address] [facility] Albumin/Globulin [Mass ratio] 0.5 {ratio} Normal [facility] Comment on above: Performed By: #### P HOS, CMP ####[address] [address] [facility] ALP [Catalytic activity/Vol] 110 U/L High 32-92 [facility] Comment on above: Performed By: #### P HOS, CMP ####[address] [address] [facility] ALT [Catalytic activity/Vol] 42 U/L Normal 10-60 [facility] Comment on above: Performed By: #### P HOS, CMP ####[address] [address] [facility] Anion gap [Moles/Vol] 17.6 mmol/L High 6.0-15.0 [facility] Comment on above: Performed By: #### P HOS, CMP ####[address] [address] [facility] AST [Catalytic activity/Vol] 39 U/L Normal 10-42 [facility] Comment on above: Performed By: #### P HOS, CMP ####[address] [address] [facility] Bilirubin [Mass/Vol] 1.7 mg/dL High 0.3-1.2 [facility] Comment on above: Result Comment: Samp les from patients who have taken Naproxen have shown spurious elevation in Total Bilirubin levels. A metabolite of Naproxen, O-desmethylnaproxen, has been shown to interfere with the Jenalfredo-Tali method for measuring Total Bilirubin. Performed By: #### P HOS, CMP ####[address] [address] [facility] Calcium [Mass/Vol] 7.4 mg/dL Low 8.2-10.2 [facility] Comment on above: Performed By: #### P HOS, CMP ####[address] [address] [facility] Chloride [Moles/Vol] 91 mmol/L Low 95-114 [facility] Comment on above: Performed By: #### P HOS, CMP ####[address] [address] [facility] CO2 [Moles/Vol] 24.6 mmol/L Normal 22.0-30.0 [facility] Comment on above: Performed By: #### P HOS, CMP ####[address] [address] [facility] Creatinine [Mass/Vol] 4.51 mg/dL Significant change up 0.64-1.27 [facility] Comment on above: Performed By: #### P HOS, CMP ####[address] [address] [facility] Creatinine Clr Calc Pharmacy 24.01 [facility] Comment on above: Performed By: #### P HOS, CMP ####[address] [address] [facility] Estimated GFR ( Zakiya 16 [facility] Comment on above: Result Comment: GFR estimated reference range: According to KDOQI guidelines, <60 ml/min/1.73m2 is sufficient to diagnose a patient with chronic kidney disease. Performed By: #### P HOS, CMP ####[address] [address] [facility] Estimated GFR (Non- Am 13 [facility] Comment on above: Performed By: #### P HOS, CMP ####[address] [address] [facility] Globulin (S) [Mass/Vol] 5.3 g/dL [facility] Comment on above: Performed By: #### P HOS, CMP ####[address] [address] [facility] Glucose [Mass/Vol] 102 mg/dL High 70-100 [facility] Comment on above: Result Comment: [place] om Glucose Reference Range is dependent on time and content of last meal. Glucose of more than 200 mg/dL in a nonstressed, ambulatory subject supports the diagnosis of Diabetes Mellitus. ADA recommended reference range Performed By: #### P HOS, CMP ####[address] [address] [facility] Potassium [Moles/Vol] 4.2 mmol/L Normal 3.5-5.1 [facility] Comment on above: Performed By: #### P HOS, CMP ####[address] [address] [facility] Protein [Mass/Vol] 7.8 g/dL Normal 6.1-7.9 [facility] Comment on above: Performed By: #### P HOS, CMP ####[address] [address] [facility] Sodium [Moles/Vol] 129 mmol/L Low 136-146 [facility] Comment on above: Performed By: #### P HOS, CMP ####[address] [address] [facility] Urea nitrogen [Mass/Vol] 64 mg/dL High 9-23 [facility] Comment on above: Performed By: #### P HOS, CMP ####[address] [address] [facility] Glucose Poct Glucometerson 0 04-16-2022 Commemt1 Glu2: Cleaned Meter Normal [facility] Comment on above: Result Comment: PERF ORMED BY:[address] [place], [place] [phone] MEDICAL DIRECTORISRAEL CHAN M.D. Performed By: #### G LULS ####Point of Care testing, Glucose [Mass/Vol] 181 mg/dL Normal [facility] Comment on above: Result Comment: [facility] Glucose Reference Range is dependent on time and content of last meal. Glucose of more than 200 mg/dL in a nonstressed, ambulatory subject supports the diagnosis of Diabetes Mellitus. Performed By: #### G LULS ####Point of Care testing, Phosphoruson 04-16-2022 Phosphate [Mass/Vol] 3.7 mg/dL Normal 2.5-4.6 [facility] Comment on above: Result Comment: PERF ORMED BY:[address] [address] [address] [place], [place] [phone] MEDICAL DIRECTORISRAEL CHAN M.D. Performed By: #### P HOS, CMP ####[address] Prothrombin Time INRon 04-16 INR Coag (PPP) [Relative time] 2.3 {INR} Normal [facility] Comment on above: Result Comment: INR Therapeutic Range A) Pre- and Peroperative OAT started two weeks before surgery. NOT HIP SURGERY: 1.5 - 2.5 HIP SURGERY: 2 - 3 B) Primary and secondary prevention of venous THROMBOSIS: 2 - 3 C) Active venous thrombosis, pulmonary embolism and prevention of recurrent venous thrombosis: 2 - 3 D) Prevention of arterial thromboembolism including patients with mechanical heart valves: 3 - 4.5PERFORMED BY:[address] [address] [address] [place], [place] [phone] MEDICAL DIRECTORISRAEL CHAN M.D. Performed By: #### S CAN CBC, PT ####[address] PT Coag (PPP) [Time] 26.4 s High 9.0-12.9 [facility] Comment on above: Performed By: #### S CAN CBC, PT ####[address] Scan and CBCon 04-16-2022 Anisocytosis Ql (Bld) Moderate Normal [facility] Comment on above: Performed By: #### S CAN CBC, PT ####[address] Basophils (Bld) [#/Vol] 0.0 10*3/uL Normal 0.0-0.2 [facility] Comment on above: Performed By: #### S CAN CBC, PT ####[address] Basophils/100 WBC (Bld) 0.3 % Normal . [facility] Comment on above: Performed By: #### S CAN CBC, PT ####[address] Eosinophils (Bld) [#/Vol] 0.2 10*3/uL Normal 0.0-0.45 [facility] Comment on above: Performed By: #### S CAN CBC, PT ####[address] Eosinophils/100 WBC (Bld) 2.0 % Normal . [facility] Comment on above: Performed By: #### S CAN CBC, PT ####[address] Erythrocyte distribution width (RBC) [Ratio] 19.3 % High 12.0-14.8 [facility] Comment on above: Performed By: #### S CAN CBC, PT ####[address] Hematocrit (Bld) [Volume fraction] 26.1 % Low 38.8-50.0 [facility] Comment on above: Performed By: #### S CAN CBC, PT ####[address] Hemoglobin (Bld) [Mass/Vol] 8.5 g/dL Low 13.0-17.0 [facility] Comment on above: Performed By: #### S CAN CBC, PT ####[address] Hypochromasia Slight Normal [facility] Comment on above: Performed By: #### S CAN CBC, PT ####[address] Lymphocytes (Bld) [#/Vol] 0.3 10*3/uL Low 1.00-4.8 [facility] Comment on above: Performed By: #### S CAN CBC, PT ####[address] Lymphocytes/100 WBC (Bld) 2.8 % Normal . [facility] Comment on above: Performed By: #### S CAN CBC, PT ####[address] Macrocytosis Slight Normal [facility] Comment on above: Performed By: #### S CAN CBC, PT ####[address] MCH (RBC) [Entitic mass] 25.1 pg Low 27.5-35.2 [facility] Comment on above: Performed By: #### S CAN CBC, PT ####[address] MCV (RBC) [Entitic vol] 77.3 fL Low 83.5-101 [facility] Comment on above: Performed By: #### S CAN CBC, PT ####[address] Mean Corpuscular HGB Conc 32.4 g/dL Low 32.5-35.6 [facility] Comment on above: Performed By: #### S CAN CBC, PT ####[address] Microcytosis Slight Normal [facility] Comment on above: Performed By: #### S CAN CBC, PT ####[address] Monocytes (Bld) [#/Vol] 1.4 10*3/uL High 0.0-0.8 [facility] Comment on above: Performed By: #### S CAN CBC, PT ####[address] Monocytes/100 WBC (Bld) 11.9 % Normal . [facility] Comment on above: Performed By: #### S CAN CBC, PT ####[address] Neutrophils (Bld) [#/Vol] 9.4 10*3/uL High 1.8-7.7 [facility] Comment on above: Performed By: #### S CAN CBC, PT ####[address] [address] [facility] Neutrophils/100 WBC (Bld) 83.0 % Normal . [facility] Comment on above: Performed By: #### S CAN CBC, PT ####[address] [place] [address] [facility] Nucleated RBC/100 WBC (Bld) [Ratio] 2.7 % High 0-0.5 [facility] Comment on above: Performed By: #### S CAN CBC, PT ####[address] [address] [facility] Ovalocytes Slight Normal [facility] Comment on above: Performed By: #### S CAN CBC, PT ####[address] [address] [facility] Platelet Estimate Normal Normal Normal [facility] Comment on above: Performed By: #### S CAN CBC, PT ####[address] [address] [facility] Platelet mean volume (Bld) [Entitic vol] 8.6 fL Normal 6.6-10.1 [facility] Comment on above: Performed By: #### S CAN CBC, PT ####[address] [address] [facility] Platelet Morphology Normal Normal Normal [facility] Comment on above: Result Comment: PERF ORMED BY:[address] [place], [place] [phone] MEDICAL DIANA CHAN M.D. Performed By: #### S CAN CBC, PT ####[address] [address] [facility] Platelets (Bld) [#/Vol] 223 10*3/uL Normal 150-450 [facility] Comment on above: Performed By: #### S CAN CBC, PT ####[address] [address] [facility] Poikilocytosis Slight Normal [facility] Comment on above: Performed By: #### S CAN CBC, PT ####[address] [place] [address] [facility] RBC (Bld) [#/Vol] 3.37 10*6/uL Low 3.90-5.60 [facility] Comment on above: Performed By: #### S CAN CBC, PT ####[address] [place] [address] [facility] Target Cells Moderate [facility] Comment on above: Performed By: #### S CAN CBC, PT ####[address] [address] [facility] WBC (Bld) [#/Vol] 11.4 10*3/uL High 4.5-11.0 [facility] Comment on above: Performed By: #### S CAN CBC, PT ####[address] [address] [facility] ABO/Rh Retypeon 04-15-2022 ABO/RH Recheck Result Positive [facility] Comment on above: Order Comment: COLTEN [facility] call lab when ready after pt receives ffp [id number] Result Comment: PERF ORMED BY:[address] [place], [place] [phone] MEDICAL DIRECTORISRAEL CHAN M.D. Aerobic Cultureon 04-15-2022 Aerobic Culture [facility] Comment on above: Performed By: #### A ERC, GS ####[id number] [facility] Blood Cultureon 04-15-2022 Bacteria identified Cx Nom (Bld) [facility] Comment on above: Performed By: #### C UBLD ####[place] [id number] [facility] CULTURE BLOODon 04-15-2022 Microscopic examination of blood, culture Culture Observations: Called [facility] to CATINA Jenkins on 04/13 @4258 Culture Observations: Pediatric bottle positive Isolate 1 Staphylococcus aureus Growth of ORGANISM 1 Staphylococcus aureus ANTIBIOTIC M.I.C RX STATUS Beta-Lactamase Pos POS F Cefoxitin Screen Neg NEG F Benzylpenicillin <=0.03 R F Gentamicin <=0.5 S F Ciprofloxacin <=0.5 S F Levofloxacin <=0.12 S F Moxifloxacin <=0.25 S F Inducible Clindamycin Resistance Pos POS F Erythromycin 4 R F Clindamycin <=0.25 R F Quinupristin/Dalfopristin <=0.25 S F Linezolid 1 S F Vancomycin <=0.5 S F Tetracycline >=16 R F Rifampicin <=0.5 S F Trimethoprim/Sulfamethoxa zole <=10 S F Oxacillin <=0.25 S F Normal [facility] Comment on above: Performed By: #### U MICRO, ERUR #### [facility] [place] [facility] [address] [place], [place] [address] Dr. Kerline Bush Coagulation Profileon 2021 aPTT Coag (Bld) [Time] 44.2 s High 25.1-36.5 [facility] Comment on above: Result Comment: PERF ORMED BY:[address] [place], [place] [phone] MEDICAL DIRECTORISRAEL CHAN M.D. Performed By: #### P P ####[address] [address] [facility] INR Coag (PPP) [Relative time] 3.2 {INR} Normal [facility] Comment on above: Result Comment: INR Therapeutic Range A) Pre- and Peroperative OAT started two weeks before surgery. NOT HIP SURGERY: 1.5 - 2.5 HIP SURGERY: 2 - 3 B) Primary and secondary prevention of venous THROMBOSIS: 2 - 3 C) Active venous thrombosis, pulmonary embolism and prevention of recurrent venous thrombosis: 2 - 3 D) Prevention of arterial thromboembolism including patients with mechanical heart valves: 3 - 4.5 Performed By: #### P P ####[address] [address] [facility] PT Coag (PPP) [Time] 37.1 s High 9.0-12.9 [facility] Comment on above: Performed By: #### P P ####[address] [address] [facility] Comprehensive Metabolic Pane maude 04-15-2022 Albumin [Mass/Vol] 2.4 g/dL Low 3.2-5.5 [facility] Comment on above: Performed By: #### S CAN CBC, PT, CMP ####[facility] [place] [address] [facility] Albumin/Globulin [Mass ratio] 0.5 {ratio} Normal [facility] Comment on above: Performed By: #### S CAN CBC, PT, CMP ####[address] [place] [address] [facility] ALP [Catalytic activity/Vol] 97 U/L High 32-92 [facility] Comment on above: Performed By: #### S CAN CBC, PT, CMP ####[address] [place] [address] [facility] ALT [Catalytic activity/Vol] 46 U/L Normal 10-60 [facility] Comment on above: Performed By: #### S CAN CBC, PT, CMP ####[address] [place] [address] [facility] Anion gap [Moles/Vol] 18.4 mmol/L High 6.0-15.0 [facility] Comment on above: Performed By: #### S CAN CBC, PT, CMP ####[address] [place] [address] [facility] AST [Catalytic activity/Vol] 50 U/L High 10-42 [facility] Comment on above: Performed By: #### S CAN CBC, PT, CMP ####[address] [place] [address] [facility] Bilirubin [Mass/Vol] 1.8 mg/dL High 0.3-1.2 [facility] Comment on above: Result Comment: Samp les from patients who have taken Naproxen have shown spurious elevation in Total Bilirubin levels. A metabolite of Naproxen, O-desmethylnaproxen, has been shown to interfere with the Jenalfredo-Tali method for measuring Total Bilirubin. Performed By: #### S CAN CBC, PT, CMP ####[facility] [id number] [place] [id number] [facility] Calcium [Mass/Vol] 7.0 mg/dL Low 8.2-10.2 [facility] Comment on above: Performed By: #### S CAN CBC, PT, CMP ####[address] [place] [id number] [facility] Chloride [Moles/Vol] 91 mmol/L Low 95-114 [facility] Comment on above: Performed By: #### S CAN CBC, PT, CMP ####[place] [id number] [facility] CO2 [Moles/Vol] 21.7 mmol/L Low 22.0-30.0 [facility] Comment on above: Performed By: #### S CAN CBC, PT, CMP ####[place] [id number] [facility] Creatinine [Mass/Vol] 5.36 mg/dL High 0.64-1.27 [facility] Comment on above: Performed By: #### S CAN CBC, PT, CMP ####[place] [id number] [facility] Creatinine Clr Calc Pharmacy 20.22 [facility] Comment on above: Result Comment: PERF ORMED BY:[address] [place], [place] [phone] MEDICAL DIRECTORISRAEL CHAN M.D. Performed By: #### S CAN CBC, PT, CMP ####[id number] [facility] Estimated GFR ( Zakiya 13 [facility] Comment on above: Result Comment: GFR estimated reference range: According to KDOQI guidelines, <60 ml/min/1.73m2 is sufficient to diagnose a patient with chronic kidney disease. Performed By: #### S CAN CBC, PT, CMP ####[id number] [facility] Estimated GFR (Non- Am 11 [facility] Comment on above: Performed By: #### S CAN CBC, PT, CMP ####[facility] [id number] [place] [address] [facility] Globulin (S) [Mass/Vol] 5.2 g/dL Normal [facility] Comment on above: Performed By: #### S CAN CBC, PT, CMP ####[place] [id number] [facility] Glucose [Mass/Vol] 116 mg/dL High 70-100 [facility] Comment on above: Result Comment: [place] om Glucose Reference Range is dependent on time and content of last meal. Glucose of more than 200 mg/dL in a nonstressed, ambulatory subject supports the diagnosis of Diabetes Mellitus. ADA recommended reference range Performed By: #### S CAN CBC, PT, CMP ####[address] Potassium [Moles/Vol] 5.1 mmol/L Normal 3.5-5.1 [facility] Comment on above: Performed By: #### S CAN CBC, PT, CMP ####[place] [id number] [facility] Protein [Mass/Vol] 7.6 g/dL Normal 6.1-7.9 [facility] Comment on above: Performed By: #### S CAN CBC, PT, CMP ####[place] [id number] [facility] Sodium [Moles/Vol] 126 mmol/L Low 136-146 [facility] Comment on above: Performed By: #### S CAN CBC, PT, CMP ####[place] [id number] [facility] Urea nitrogen [Mass/Vol] 86 mg/dL High -23 [facility] Comment on above: Performed By: #### S CAN CBC, PT, CMP ####[place] [id number] [place] Fresh Frozen Plasmaon 2021 Fresh Frozen Plasma TRANSFUSED 04/15/22 1608 [facility] Glucose Poct Glucometerson 0 04-15-2022 Glucose [Mass/Vol] 126 mg/dL [facility] Comment on above: Result Comment: [place] om Glucose Reference Range is dependent on time and content of last meal. Glucose of more than 200 mg/dL in a nonstressed, ambulatory subject supports the diagnosis of Diabetes Mellitus.PERFORMED BY:[address] [address] [address] [place], [place] [phone] MEDICAL DIRECTORISRAEL CHAN M.D. Performed By: #### G LULS ####Point of Care testing, Glucose [Mass/Vol] 124 mg/dL Normal [facility] Comment on above: Result Comment: [place] Glucose Reference Range is dependent on time and content of last meal. Glucose of more than 200 mg/dL in a nonstressed, ambulatory subject supports the diagnosis of Diabetes Mellitus.PERFORMED BY:[address] [address] [place], [place] [phone] MEDICAL DIRECTORISRAEL CHAN M.D. Performed By: #### G LULS ####Point of Care testing, Glucose [Mass/Vol] 172 mg/dL Normal [facility] Comment on above: Result Comment: [facility] Glucose Reference Range is dependent on time and content of last meal. Glucose of more than 200 mg/dL in a nonstressed, ambulatory subject supports the diagnosis of Diabetes Mellitus.PERFORMED BY:[address] [address] [place], [place] [phone] MEDICAL DIRECTORISRAEL CHAN M.D. Performed By: #### G LULS ####Point of Care testing, Gram Stainon 04-15-2022 Microscopic observation Gram stain Nom (Unsp spec) Normal [facility] Comment on above: Performed By: #### A ERC, GS ####[address] [address] [facility] Prothrombin Time INRon 04-15 INR Coag (PPP) [Relative time] 3.8 {INR} Normal [facility] Comment on above: Result Comment: INR Therapeutic Range A) Pre- and Peroperative OAT started two weeks before surgery. NOT HIP SURGERY: 1.5 - 2.5 HIP SURGERY: 2 - 3 B) Primary and secondary prevention of venous THROMBOSIS: 2 - 3 C) Active venous thrombosis, pulmonary embolism and prevention of recurrent venous thrombosis: 2 - 3 D) Prevention of arterial thromboembolism including patients with mechanical heart valves: 3 - 4.5PERFORMED BY:[address] [place], [place] [phone] MEDICAL DIRECTORISRAEL CHAN M.D. Performed By: #### S CAN CBC, PT, CMP ####[address] PT Coag (PPP) [Time] 43.9 s High 9.0-12.9 [facility] Comment on above: Performed By: #### S CAN CBC, PT, CMP ####[address] Scan and CBCon 04-15-[address] [facility] Comment on above: Performed By: #### S CAN CBC, PT, CMP ####[address] Anisocytosis Ql (Bld) Moderate Normal [facility] Comment on above: Performed By: #### S CAN CBC, PT, CMP ####[address] Basophils (Bld) [#/Vol] 0.0 10*3/uL Normal 0.0-0.2 [facility] Comment on above: Performed By: #### S CAN CBC, PT, CMP ####[address] Basophils/100 WBC (Bld) 0.3 % Normal . [facility] Comment on above: Performed By: #### S CAN CBC, PT, CMP ####[address] Eosinophils (Bld) [#/Vol] 0.1 10*3/uL Normal 0.0-0.45 [facility] Comment on above: Performed By: #### S CAN CBC, PT, CMP ####[address] Eosinophils/100 WBC (Bld) 1.1 % Normal . [facility] Comment on above: Performed By: #### S CAN CBC, PT, CMP ####[address] Erythrocyte distribution width (RBC) [Ratio] 19.4 % High 12.0-14.8 [facility] Comment on above: Performed By: #### S CAN CBC, PT, CMP ####[address] Hematocrit (Bld) [Volume fraction] 25.8 % Low 38.8-50.0 [facility] Comment on above: Performed By: #### S CAN CBC, PT, CMP ####[address] Hemoglobin (Bld) [Mass/Vol] 8.2 g/dL Low 13.0-17.0 [facility] Comment on above: Performed By: #### S CAN CBC, PT, CMP ####[address] [place] Bodies Slight Normal [facility] Comment on above: Performed By: #### S CAN CBC, PT, CMP ####[address] Hypochromasia Moderate Normal [facility] Comment on above: Performed By: #### S CAN CBC, PT, CMP ####[address] Lymphocytes (Bld) [#/Vol] 0.3 10*3/uL Low 1.00-4.8 [facility] Comment on above: Performed By: #### S CAN CBC, PT, CMP ####[address] Lymphocytes/100 WBC (Bld) 2.6 % Normal . [facility] Comment on above: Performed By: #### S CAN CBC, PT, CMP ####[address] MCH (RBC) [Entitic mass] 24.8 pg Low 27.5-35.2 [facility] Comment on above: Performed By: #### S CAN CBC, PT, CMP ####[address] MCV (RBC) [Entitic vol] 77.8 fL Low 83.5-101 [facility] Comment on above: Performed By: #### S CAN CBC, PT, CMP ####[address] Mean Corpuscular HGB Conc 31.9 g/dL Low 32.5-35.6 [facility] Comment on above: Performed By: #### S CAN CBC, PT, CMP ####[address] Monocytes (Bld) [#/Vol] 1.1 10*3/uL High 0.0-0.8 [facility] Comment on above: Performed By: #### S CAN CBC, PT, CMP ####[address] Monocytes/100 WBC (Bld) 9.7 % Normal . [facility] Comment on above: Performed By: #### S CAN CBC, PT, CMP ####[address] Neutrophils (Bld) [#/Vol] 9.9 10*3/uL High 1.8-7.7 [facility] Comment on above: Performed By: #### S CAN CBC, PT, CMP ####[address] Neutrophils/100 WBC (Bld) 86.3 % Normal . [facility] Comment on above: Performed By: #### S CAN CBC, PT, CMP ####[address] Nucleated RBC/100 WBC (Bld) [Ratio] 2.4 % High 0-0.5 [facility] Comment on above: Performed By: #### S CAN CBC, PT, CMP ####[address] [place] [address] [facility] Ovalocytes Slight Normal [facility] Comment on above: Performed By: #### S CAN CBC, PT, CMP ####[address] [address] [facility] Platelet Estimate Normal Normal Normal [facility] Comment on above: Performed By: #### S CAN CBC, PT, CMP ####[address] [address] [facility] Platelet mean volume (Bld) [Entitic vol] 8.4 fL Normal 6.6-10.1 [facility] Comment on above: Performed By: #### S CAN CBC, PT, CMP ####[address] [address] [facility] Platelet Morphology Normal Normal Normal [facility] Comment on above: Result Comment: PERF ORMED BY:[address] [place], [place] [phone] MEDICAL DIANA CHNA M.D. Performed By: #### S CAN CBC, PT, CMP ####[address] [address] [facility] Platelets (Bld) [#/Vol] 226 10*3/uL Normal 150-450 [facility] Comment on above: Performed By: #### S CAN CBC, PT, CMP ####[address] [address] [facility] Poikilocytosis Slight Normal [facility] Comment on above: Performed By: #### S CAN CBC, PT, CMP ####[address] [address] [facility] RBC (Bld) [#/Vol] 3.32 10*6/uL Low 3.90-5.60 [facility] Comment on above: Performed By: #### S CAN CBC, PT, CMP ####[address] [address] [facility] Schistocytes Slight Normal [facility] Comment on above: Performed By: #### S CAN CBC, PT, CMP ####[id number] [place] [address] [facility] Target Cells Moderate Normal [facility] Comment on above: Performed By: #### S CAN CBC, PT, CMP ####[facility] [place] [address] [facility] WBC (Bld) [#/Vol] 11.5 10*3/uL High 4.5-11.0 [facility] Comment on above: Performed By: #### S CAN CBC, PT, CMP ####[address] [address] [place] Type and Screenon 04-15-2022 ABO and Rh group Nom (Bld) Blood group B Rh(D) positive Normal [facility] Comment on above: Order Comment: Trans fuse now? Y Number of units to transfuse now? 2 Transfuse now? Y Number of units to transfuse now? 2 Result Comment: PERF ORMED BY:[address] [address] [place], [place] [phone] MEDICAL DIRECTORISRAEL CHAN M.D. US AV Fistulaon 04-15-2022 US AV Fistula Normal [facility] XR chest 1V portableon 04-15 XR chest 1V portable Normal [facility] Complete Blood Count Auto Di ffon 04-14-2022 Basophils (Bld) [#/Vol] 0.0 10*3/uL Normal 0.0-0.2 [facility] Comment on above: Result Comment: PERF ORMED BY:[address] [place], [place] [phone] MEDICAL DIRECTORISAREL CHAN M.D. Performed By: #### C BC, RENAL ####[address] [address] [place] Basophils/100 WBC (Bld) 0.2 % Normal . [facility] Comment on above: Performed By: #### C BC, RENAL ####[address] [address] [facility] Eosinophils (Bld) [#/Vol] 0.0 10*3/uL Normal 0.0-0.45 [facility] Comment on above: Performed By: #### C BC, RENAL ####[address] Eosinophils/100 WBC (Bld) 0.2 % Normal . [facility] Comment on above: Performed By: #### C BC, RENAL ####[address] Erythrocyte distribution width (RBC) [Ratio] 19.7 % High 12.0-14.8 [facility] Comment on above: Performed By: #### C BC, RENAL ####[address] Hematocrit (Bld) [Volume fraction] 26.7 % Low 38.8-50.0 [facility] Comment on above: Performed By: #### C BC, RENAL ####[address] Hemoglobin (Bld) [Mass/Vol] 8.3 g/dL Low 13.0-17.0 [facility] Comment on above: Performed By: #### C BC, RENAL ####[address] Lymphocytes (Bld) [#/Vol] 0.6 10*3/uL Low 1.00-4.8 [facility] Comment on above: Performed By: #### C BC, RENAL ####[id number] [facility] Lymphocytes/100 WBC (Bld) 4.5 % Normal . [facility] Comment on above: Performed By: #### C BC, RENAL ####[id number] [facility] MCH (RBC) [Entitic mass] 24.3 pg Low 27.5-35.2 [facility] Comment on above: Performed By: #### C BC, RENAL ####[id number] [facility] MCV (RBC) [Entitic vol] 78.0 fL Low 83.5-101 [facility] Comment on above: Performed By: #### C BC, RENAL ####[id number] [place] [id number] [facility] Mean Corpuscular HGB Conc 31.2 g/dL Low 32.5-35.6 [facility] Comment on above: Performed By: #### C BC, RENAL ####[address] [address] [facility] Monocytes (Bld) [#/Vol] 1.1 10*3/uL High 0.0-0.8 [facility] Comment on above: Performed By: #### C BC, RENAL ####[address] [place] [id number] [facility] Monocytes/100 WBC (Bld) 8.5 % Normal . [facility] Comment on above: Performed By: #### C BC, RENAL ####[place] [id number] [facility] Neutrophils (Bld) [#/Vol] 11.5 10*3/uL High 1.8-7.7 [facility] Comment on above: Performed By: #### C BC, RENAL ####[address] [id number] [facility] Neutrophils/100 WBC (Bld) 86.6 % Normal . [facility] Comment on above: Performed By: #### C BC, RENAL ####[id number] [facility] Nucleated RBC/100 WBC (Bld) [Ratio] 1.1 % High 0-0.5 [facility] Comment on above: Performed By: #### C BC, RENAL ####[id number] [facility] Platelet mean volume (Bld) [Entitic vol] 8.5 fL Normal 6.6-10.1 [facility] Comment on above: Performed By: #### C BC, RENAL ####[id number] [facility] Platelets (Bld) [#/Vol] 233 10*3/uL Normal 150-450 [facility] Comment on above: Performed By: #### C BC, RENAL ####[address] RBC (Bld) [#/Vol] 3.42 10*6/uL Low 3.90-5.60 [facility] Comment on above: Performed By: #### C BC, RENAL ####[address] WBC (Bld) [#/Vol] 13.3 10*3/uL High 4.5-11.0 [facility] Comment on above: Performed By: #### C BC, RENAL ####[address] Basophils (Bld) [#/Vol] 0.1 10*3/uL Normal 0.0-0.2 [facility] Comment on above: Result Comment: PERF ORMED BY:[address] [place], [place] [phone] MEDICAL DIRECTORISRAEL CHAN M.D. Performed By: #### M G, CMP, CBC ####[address] Basophils/100 WBC (Bld) 0.4 % Normal . [facility] Comment on above: Performed By: #### M G, CMP, CBC ####[address] Eosinophils (Bld) [#/Vol] 0.2 10*3/uL Normal 0.0-0.45 [facility] Comment on above: Performed By: #### M G, CMP, CBC ####[address] Eosinophils/100 WBC (Bld) 1.0 % Normal . [facility] Comment on above: Performed By: #### M G, CMP, CBC ####[address] Erythrocyte distribution width (RBC) [Ratio] 19.8 % High 12.0-14.8 [facility] Comment on above: Performed By: #### Sy Dowell CMP, CBC ####[address] Hematocrit (Bld) [Volume fraction] 26.9 % Low 38.8-50.0 [facility] Comment on above: Performed By: #### Sy Dowell CMP, CBC ####[address] Hemoglobin (Bld) [Mass/Vol] 8.6 g/dL Low 13.0-17.0 [facility] Comment on above: Performed By: #### Sy Dowell CMP, CBC ####[address] Lymphocytes (Bld) [#/Vol] 2.6 10*3/uL Normal 1.00-4.8 [facility] Comment on above: Performed By: #### Sy Dowell CMP, CBC ####[address] Lymphocytes/100 WBC (Bld) 17.7 % Normal . [facility] Comment on above: Performed By: #### Sy Dowell CMP, CBC ####[address] MCH (RBC) [Entitic mass] 24.7 pg Low 27.5-35.2 [facility] Comment on above: Performed By: #### Sy Dowell CMP, CBC ####[address] MCV (RBC) [Entitic vol] 77.3 fL Low 83.5-101 [facility] Comment on above: Performed By: #### Sy Dowell CMP, CBC ####[address] Mean Corpuscular HGB Conc 31.9 g/dL Low 32.5-35.6 [facility] Comment on above: Performed By: #### Sy Dowell CMP, CBC ####[address] [place] [address] [facility] Monocytes (Bld) [#/Vol] 0.8 10*3/uL Normal 0.0-0.8 [facility] Comment on above: Performed By: #### Sy Dowell, CMP, CBC ####[id number] [facility] Monocytes/100 WBC (Bld) 5.6 % Normal . [facility] Comment on above: Performed By: #### Sy Dowell, CMP, CBC ####[address] Neutrophils (Bld) [#/Vol] 11.0 10*3/uL High 1.8-7.7 [facility] Comment on above: Performed By: #### Sy Dowell CMP, CBC ####[address] Neutrophils/100 WBC (Bld) 75.3 % Normal . [facility] Comment on above: Performed By: #### Sy Dowell CMP, CBC ####[id number] [facility] Nucleated RBC/100 WBC (Bld) [Ratio] 0.6 % High 0-0.5 [facility] Comment on above: Performed By: #### Sy Dowell CMP, CBC ####[id number] [facility] Platelet mean volume (Bld) [Entitic vol] 8.1 fL Normal 6.6-10.1 [facility] Comment on above: Performed By: #### Sy Dowell, CMP, CBC ####[id number] [facility] Platelets (Bld) [#/Vol] 206 10*3/uL Normal 150-450 [facility] Comment on above: Performed By: #### Sy Dowell CMP, CBC ####[id number] [facility] RBC (Bld) [#/Vol] 3.48 10*6/uL Low 3.90-5.60 [facility] Comment on above: Performed By: #### Sy Dowell CMP, CBC ####[address] [address] [facility] WBC (Bld) [#/Vol] 14.6 10*3/uL High 4.5-11.0 [facility] Comment on above: Performed By: #### Sy Dowell CMP, CBC ####[address] [id number] [facility] Comprehensive Metabolic Pane maude 04-14-2022 Albumin [Mass/Vol] 2.5 g/dL Low 3.2-5.5 [facility] Comment on above: Performed By: #### Sy Dowell CMP, CBC ####[id number] [facility] Albumin/Globulin [Mass ratio] 0.5 {ratio} Normal [facility] Comment on above: Performed By: #### Sy Dowell CMP, CBC ####[id number] [facility] ALP [Catalytic activity/Vol] 87 U/L Normal 32-92 [facility] Comment on above: Performed By: #### Sy Dowell CMP, CBC ####[id number] [facility] ALT [Catalytic activity/Vol] 39 U/L Normal 10-60 [facility] Comment on above: Performed By: #### Sy Dowell CMP, CBC ####[id number] [facility] Anion gap [Moles/Vol] 17.5 mmol/L High 6.0-15.0 [facility] Comment on above: Performed By: #### Sy Dowell CMP, CBC ####[address] [id number] [facility] AST [Catalytic activity/Vol] 51 U/L High 10-42 [facility] Comment on above: Performed By: #### Sy Dowell CMP, CBC ####[id number] [facility] Bilirubin [Mass/Vol] 2.3 mg/dL High 0.3-1.2 [facility] Comment on above: Result Comment: Samp les from patients who have taken Naproxen have shown spurious elevation in Total Bilirubin levels. A metabolite of Naproxen, O-desmethylnaproxen, has been shown to interfere with the Jendrassik-Grof method for measuring Total Bilirubin. Performed By: #### M Delmer CMP, CBC ####[id number] [place] [id number] [facility] Calcium [Mass/Vol] 7.1 mg/dL Low 8.2-10.2 [facility] Comment on above: Performed By: #### Sy Dowell CMP, CBC ####[id number] [facility] Chloride [Moles/Vol] 92 mmol/L Low 95-114 [facility] Comment on above: Performed By: #### Sy Dowell CMP, CBC ####[id number] [facility] CO2 [Moles/Vol] 24.6 mmol/L Normal 22.0-30.0 [facility] Comment on above: Performed By: #### Sy Dowell CMP, CBC ####[address] [id number] [facility] Creatinine [Mass/Vol] 4.95 mg/dL High 0.64-1.27 [facility] Comment on above: Performed By: #### Sy Dowell CMP, CBC ####[id number] [facility] Creatinine Clr Calc Pharmacy 21.75 [facility] Comment on above: Performed By: #### M Delmer CMP, CBC ####[id number] [facility] Estimated GFR ( Zkaiya 15 [facility] Comment on above: Result Comment: GFR estimated reference range: According to KDOQI guidelines, <60 ml/min/1.73m2 is sufficient to diagnose a patient with chronic kidney disease. Performed By: #### Sy Dowell CMP, CBC ####[id number] [facility] Estimated GFR (Non- Am [address] [facility] Comment on above: Performed By: #### Sy Dowell CMP, CBC ####[address] [place] [address] [facility] Globulin (S) [Mass/Vol] 4.9 g/dL Normal [facility] Comment on above: Performed By: #### Sy Dowell CMP, CBC ####[address] [place] [address] [facility] Glucose [Mass/Vol] 122 mg/dL High 70-100 [facility] Comment on above: Result Comment: [facility] Glucose Reference Range is dependent on time and content of last meal. Glucose of more than 200 mg/dL in a nonstressed, ambulatory subject supports the diagnosis of Diabetes Mellitus. ADA recommended reference range Performed By: #### Sy Dowell CMP, CBC ####[id number] [place] [id number] [facility] Potassium [Moles/Vol] 5.1 mmol/L Normal 3.5-5.1 [facility] Comment on above: Performed By: #### Sy Dowell CMP, CBC ####[address] [place] [address] [facility] Protein [Mass/Vol] 7.4 g/dL Normal 6.1-7.9 [facility] Comment on above: Performed By: #### Sy Dowell CMP, CBC ####[id number] [facility] Sodium [Moles/Vol] 129 mmol/L Low 136-146 [facility] Comment on above: Performed By: #### Sy Dowell CMP, CBC ####[address] [place] [address] [facility] Urea nitrogen [Mass/Vol] 79 mg/dL High 04-14 [facility] Comment on above: Performed By: #### Sy Dowell CMP, CBC ####[address] [place] [address] [facility] Dipstick and Microscopicon 0 04-14-2022 Appearance (U) Clear Normal Clear [facility] Comment on above: Order Comment: Name Collection Type:: Aponte Catheter Performed By: #### A DDONUAPLUS ####[facility] [id number] [place] [address] [place] Bacteria,Urine None Seen Normal None Seen [facility] Comment on above: Order Comment: Name Collection Type:: Aponte Catheter Performed By: #### A DDONUAPLUS ####[address] [address] [place] Bilirubin,Urine Negative Normal Negative [facility] Comment on above: Order Comment: Name Collection Type:: Aponte Catheter Performed By: #### A DDONUAPLUS ####[address] [address] [facility] Color (U) Dark Yellow Critically abnormal Yellow [facility] Comment on above: Order Comment: Name Collection Type:: Aponte Catheter Performed By: #### A DDONUAPLUS ####[address] [address] [facility] Glucose Ql (U) Normal Normal Normal [facility] Comment on above: Order Comment: Name Collection Type:: Aponte Catheter Performed By: #### A DDONUAPLUS ####[address] [address] [place] Hyaline Casts,Urine 0-8 Normal 0-8 [facility] Comment on above: Order Comment: Name Collection Type:: Aponte Catheter Result Comment: PERF ORMED BY:[address] [place], [place] [phone] MEDICAL DIANA CHAN M.D. Performed By: #### A DDONUAPLUS ####[address] [address] [place] Ketones Ql (U) Trace High Negative [facility] Comment on above: Order Comment: Name Collection Type:: Aponte Catheter Performed By: #### A DDONUAPLUS ####[address] [address] [facility] Leukocyte esterase Test strip Ql (U) Negative Normal Negative [facility] Comment on above: Order Comment: Name Collection Type:: Aponte Catheter Performed By: #### A DDONUAPLUS ####[address] [place] [address] [place] Nitrite,Urine Negative Normal Negative [facility] Comment on above: Order Comment: Name Collection Type:: Aponte Catheter Performed By: #### A DDONUAPLUS ####[address] [address] [place] Occult Blood,Urine Negative Normal Negative [facility] Comment on above: Order Comment: Name Collection Type:: Aponte Catheter Result Comment: PERF ORMED BY:[address] [place], [place] [phone] MEDICAL DIRECTORISRAEL CHAN M.D. Performed By: #### A DDONUAPLUS ####[address] [address] [facility] pH (U) 5.0 [pH] Normal 5.0-9.0 [facility] Comment on above: Order Comment: Name Collection Type:: Aponte Catheter Performed By: #### A DDONUAPLUS ####[address] [address] [facility] Protein (U) [Mass/Vol] 100 mg/dL High Negative [facility] Comment on above: Order Comment: Name Collection Type:: Aponte Catheter Performed By: #### A DDONUAPLUS ####[address] [address] [place] RBC,Urine 3-4 Normal 0-4 [facility] Comment on above: Order Comment: Name Collection Type:: Aponte Catheter Performed By: #### A DDONUAPLUS ####[address] [address] [place] Specificy [place],Urine 1.014 Normal 1.001-1.030 [facility] Comment on above: Order Comment: Name Collection Type:: Aponte Catheter Performed By: #### A DDONUAPLUS ####[address] [address] [place] Squamous Epithelial Cell,Urine None Seen Normal 0-2 [facility] Comment on above: Order Comment: Name Collection Type:: Aponte Catheter Performed By: #### A DDONUAPLUS ####[address] [place] [id number] [facility] Urobilinogen,Urine Normal Normal Normal [facility] Comment on above: Order Comment: Name Collection Type:: Aponte Catheter Performed By: #### A DDONUAPLUS ####[place] [id number] [facility] WBC LM.HPF (Urine sed) [#/Area] 0 /[HPF] Normal 0-4 [facility] Comment on above: Order Comment: Name Collection Type:: Aponte Catheter Performed By: #### A DDONUAPLUS ####[place] [id number] [facility] Glucose Poct Glucometerson 0 04-14-2022 Commemt1 Glu2: Cleaned Meter [facility] Comment on above: Result Comment: PERF ORMED BY:[address] [place], [place] [phone] MEDICAL DIRECTORISRAEL CHAN M.D. Performed By: #### G LULS ####Point of Care testing, Glucose [Mass/Vol] 147 mg/dL Normal [facility] Comment on above: Result Comment: [facility] Glucose Reference Range is dependent on time and content of last meal. Glucose of more than 200 mg/dL in a nonstressed, ambulatory subject supports the diagnosis of Diabetes Mellitus. Performed By: #### G LULS ####Point of Care testing, Commemt1 Glu2: Cleaned Meter [facility] Comment on above: Result Comment: PERF ORMED BY:[address] [place], [place] [phone] MEDICAL DIRECTORISRAEL CHAN M.D. Performed By: #### G LULS ####Point of Care testing, Glucose [Mass/Vol] 121 mg/dL Normal [facility] Comment on above: Result Comment: [place] Glucose Reference Range is dependent on time and content of last meal. Glucose of more than 200 mg/dL in a nonstressed, ambulatory subject supports the diagnosis of Diabetes Mellitus. Performed By: #### G LULS ####Point of Care testing, Glucose [Mass/Vol] 142 mg/dL Normal [facility] Comment on above: Result Comment: [facility] Glucose Reference Range is dependent on time and content of last meal. Glucose of more than 200 mg/dL in a nonstressed, ambulatory subject supports the diagnosis of Diabetes Mellitus.PERFORMED BY:[address] [address] [place], [place] [phone] MEDICAL DIRECTORISRAEL CHAN M.D. Performed By: #### G LULS ####Point of Care testing, Glucose [Mass/Vol] 128 mg/dL Normal [facility] Comment on above: Result Comment: [facility] Glucose Reference Range is dependent on time and content of last meal. Glucose of more than 200 mg/dL in a nonstressed, ambulatory subject supports the diagnosis of Diabetes Mellitus.PERFORMED BY:[address] [place] [place], [place] [phone] MEDICAL DIANA CHAN M.D. Performed By: #### G LULS ####Point of Care testing, Magnesiumon 04-14-2022 Magnesium [Mass/Vol] 1.8 mg/dL Normal 1.6-2.6 [facility] Comment on above: Result Comment: PERF ORMED BY:[address] [place], [place] [phone] MEDICAL DIANA CHAN M.D. Performed By: #### M G, CMP, CBC ####[facility] [id number] [place] [address] [place] Partial Thromboplastin Timeo n 04-14-2022 aPTT Coag (Bld) [Time] 49.5 s High 25.1-36.5 [facility] Comment on above: Result Comment: PERF ORMED BY:[address] [place], [place] [phone] MEDICAL DIANA CHAN M.D. Performed By: #### P TT ####[address] [address] [facility] aPTT Coag (Bld) [Time] 43.1 s High 25.1-36.5 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 Performed By: #### P TT ####[address] [address] [facility] aPTT Coag (Bld) [Time] 115.1 s Off scale high 25.1-36.5 [facility] Comment on above: Result Comment: Resu lts called at 0450 on 04/14/22PERFORMED BY:[address] [place], [place] [phone] MEDICAL DIRECTORISRAEL CHAN M.D. Performed By: #### P TT, PT ####[address] [address] [facility] Prothrombin Time INRon 04-14 INR Coag (PPP) [Relative time] 3.4 {INR} Normal [facility] Comment on above: Result Comment: INR Therapeutic Range A) Pre- and Peroperative OAT started two weeks before surgery. NOT HIP SURGERY: 1.5 - 2.5 HIP SURGERY: 2 - 3 B) Primary and secondary prevention of venous THROMBOSIS: 2 - 3 C) Active venous thrombosis, pulmonary embolism and prevention of recurrent venous thrombosis: 2 - 3 D) Prevention of arterial thromboembolism including patients with mechanical heart valves: 3 - 4.5 Performed By: #### P TT, PT ####[address] [address] [facility] PT Coag (PPP) [Time] 39.1 s High 9.0-12.9 [facility] Comment on above: Performed By: #### P TT, PT ####[address] [address] [facility] Renal Function Panelon 04-14 Albumin [Mass/Vol] 2.5 g/dL Low 3.2-5.5 [facility] Comment on above: Performed By: #### C BC, RENAL ####[facility] [place] [address] [facility] Anion gap [Moles/Vol] 20.2 mmol/L High 6.0-15.0 [facility] Comment on above: Performed By: #### C BC, RENAL ####[facility] [place] [address] [facility] Calcium [Mass/Vol] 7.1 mg/dL Low 8.2-10.2 [facility] Comment on above: Performed By: #### C BC, RENAL ####[address] [place] [address] [facility] Chloride [Moles/Vol] 91 mmol/L Low 95-114 [facility] Comment on above: Performed By: #### C BC, RENAL ####[address] [place] [address] [facility] CO2 [Moles/Vol] 23.9 mmol/L Normal 22.0-30.0 [facility] Comment on above: Performed By: #### C BC, RENAL ####[address] [place] [address] [facility] Creatinine [Mass/Vol] 5.15 mg/dL High 0.64-1.27 [facility] Comment on above: Performed By: #### C BC, RENAL ####[address] [place] [address] [facility] Creatinine Clr Calc Pharmacy 21.05 [facility] Comment on above: Result Comment: PERF ORMED BY:[address] [place], [place] [phone] MEDICAL DIRECTORISRAEL CHAN M.D. Performed By: #### C BC, RENAL ####[address] [place] [address] [facility] Estimated GFR ( Zakiya 14 [facility] Comment on above: Result Comment: GFR estimated reference range: According to KDOQI guidelines, <60 ml/min/1.73m2 is sufficient to diagnose a patient with chronic kidney disease. Performed By: #### C BC, RENAL ####[address] [place] [address] [facility] Estimated GFR (Non- Am [address] [facility] Comment on above: Performed By: #### C BC, RENAL ####[address] [place] [address] [facility] Glucose [Mass/Vol] 111 mg/dL High 70-100 [facility] Comment on above: Result Comment: [place] om Glucose Reference Range is dependent on time and content of last meal. Glucose of more than 200 mg/dL in a nonstressed, ambulatory subject supports the diagnosis of Diabetes Mellitus. ADA recommended reference range Performed By: #### C BC, RENAL ####[address] [address] [facility] Phosphate [Mass/Vol] 4.5 mg/dL Normal 2.5-4.6 [facility] Comment on above: Performed By: #### C BC, RENAL ####[address] [address] [facility] Potassium [Moles/Vol] 5.1 mmol/L Normal 3.5-5.1 [facility] Comment on above: Performed By: #### C BC, RENAL ####[address] [address] [facility] Sodium [Moles/Vol] 130 mmol/L Low 136-146 [facility] Comment on above: Performed By: #### C BC, RENAL ####[address] [place] [address] [facility] Urea nitrogen [Mass/Vol] 80 mg/dL High 9-23 [facility] Comment on above: Performed By: #### C BC, RENAL ####[address] [place] [address] [facility] Blood Cultureon 04-13-2022 Bacteria identified Cx Nom (Bld) Normal [facility] Comment on above: Performed By: #### C UBLD ####[address] [place] [address] [facility] Bacteria identified Cx Nom (Bld) Normal [facility] Comment on above: Performed By: #### C UBLD ####[address] [address] [facility] C-Reactive Proteinon 022 C-Reactive Protein 10.5 mg/dL High 0.0-1.0 [facility] Comment on above: Result Comment: PERF ORMED BY:[address] [place], [place] [phone] MEDICAL DIRECTORISRAEL CHAN M.D. Performed By: #### E SR, CRP ####[address] [address] [facility] ECG 12 lead ECGon 04-13-2022 ECG [address] [facility] ECH echo transthoracicon ECH echo transthoracic Normal [facility] Erythrocyte Sedimentation Ra gurmeet 04-13-2022 ESR (Bld) [Velocity] 106 mm/h High 0-19 [facility] Comment on above: Result Comment: PERF ORMED BY:[address] [place], [place] [phone] MEDICAL DIRECTORISRAEL CHAN M.D. Performed By: #### E SR, CRP ####[address] [address] [facility] Ferritinon 04-13-2022 Ferritin [Mass/Vol] 42.7 ng/mL Normal 23.9-336.2 [facility] Comment on above: Order Comment: Comme nt adds on Result Comment: PERF ORMED BY:[address] [place], [place] [phone] MEDICAL DIRECTORISRAEL CHAN M.D. Performed By: #### F ER, FE and TIBC ####[address] [address] [facility] Glucose Poct Glucometerson 0 04-13-2022 Glucose [Mass/Vol] 144 mg/dL Normal [facility] Comment on above: Result Comment: [facility] Glucose Reference Range is dependent on time and content of last meal. Glucose of more than 200 mg/dL in a nonstressed, ambulatory subject supports the diagnosis of Diabetes Mellitus.PERFORMED BY:[address] [place] [place], [place] [phone] MEDICAL DIRECTORISRAEL CHAN M.D. Performed By: #### Delmer MURPHY ####Point of Care testing, Glucose [Mass/Vol] 130 mg/dL Normal [facility] Comment on above: Result Comment: [facility] Glucose Reference Range is dependent on time and content of last meal. Glucose of more than 200 mg/dL in a nonstressed, ambulatory subject supports the diagnosis of Diabetes Mellitus.PERFORMED BY:[address] [place], [place] [phone] MEDICAL DIRECTORISRAEL CHAN M.D. Performed By: #### Delmer MURPHY ####Point of Care testing, Hemogram CBC Without Diffon 04-13-2022 Erythrocyte distribution width (RBC) [Ratio] 19.4 % High 12.0-14.8 [facility] Comment on above: Performed By: #### ASHLEY CORADO ####[address] [place] [address] [facility] Hematocrit (Bld) [Volume fraction] 30.0 % Low 38.8-50.0 [facility] Comment on above: Performed By: #### ASHLEY CORADO ####[address] [address] [facility] Hemoglobin (Bld) [Mass/Vol] 9.2 g/dL Low 13.0-17.0 [facility] Comment on above: Performed By: #### ASHLEY CORADO ####[address] [place] [address] [facility] MCH (RBC) [Entitic mass] 24.1 pg Low 27.5-35.2 [facility] Comment on above: Performed By: #### ASHLEY CORADO ####[facility] [place] [address] [facility] MCV (RBC) [Entitic vol] 79.1 fL Low 83.5-101 [facility] Comment on above: Performed By: #### ASHLEY CORADO ####[address] [place] [address] [facility] Mean Corpuscular HGB Conc 30.5 g/dL Low 32.5-35.6 [facility] Comment on above: Performed By: #### ASHLEY CORADO ####[address] [place] [address] [facility] Platelet mean volume (Bld) [Entitic vol] 8.5 fL Normal 6.6-10.1 [facility] Comment on above: Result Comment: PERF ORMED BY:[address] [place], [place] [phone] MEDICAL DIRECTORISRAEL CHAN M.D. Performed By: #### R ASHLEY CASTRO ####[address] [place] [address] [facility] Platelets (Bld) [#/Vol] 260 10*3/uL Normal 150-450 [facility] Comment on above: Performed By: #### ASHLEY CORADO ####[address] [place] [address] [facility] RBC (Bld) [#/Vol] 3.79 10*6/uL Low 3.90-5.60 [facility] Comment on above: Performed By: #### ASHLEY CORADO ####[address] [place] [address] [facility] WBC (Bld) [#/Vol] 21.5 10*3/uL High 4.1-10.5 [facility] Comment on above: Performed By: #### ASHLEY CORADO ####[address] [place] [address] [facility] Iron and TIBC Profileon 2 2-2021 % Iron Saturation 3.0 % Low 20-50 [facility] Comment on above: Order Comment: Comme nt adds on Performed By: #### F ER, FE and TIBC ####[id number] [facility] Iron [Mass/Vol] 9 ug/dL Low 40-160 [facility] Comment on above: Order Comment: Comme nt adds on Performed By: #### F ER, FE and TIBC ####[id number] [facility] Total Iron Binding Capacity 269 ug/dL Normal 255-450 [facility] Comment on above: Order Comment: Comme nt adds on Performed By: #### F ER, FE and TIBC ####[address] Transferrin [Mass/Vol] 192 mg/dL Normal 180-380 [facility] Comment on above: Order Comment: Comme nt adds on Performed By: #### F ER, FE and TIBC ####[address] LACTATE/LACTIC ACIDon 2021 Lactate [Moles/Vol] 2.0 mmol/L Critically high 0.4-1.9 [facility] Comment on above: Performed By: #### L ACT #### [facility] [address] [address] [address] Kerlnie Bush Partial Thromboplastin Timeo n 04-13-2022 aPTT Coag (Bld) [Time] 68.9 s High 25.1-36.5 [facility] Comment on above: Result Comment: PERF ORMED BY:[address] [place], [place] [phone] MEDICAL DIRECTORISRAEL CHAN M.D. Performed By: #### P TT ####[id number] [facility] aPTT Coag (Bld) [Time] 46.5 s High 25.1-36.5 [facility] Comment on above: Result Comment: PERF ORMED BY:[address] [place] [place], [place] [phone] MEDICAL DIRECTORISRAEL CHAN M.D. Performed By: #### P TT ####[address] [address] [facility] Renal Function Panelon 04-13 Albumin [Mass/Vol] 2.6 g/dL Low 3.2-5.5 [facility] Comment on above: Performed By: #### ASHLEY CORADO ####[address] [place] [address] [facility] Anion gap [Moles/Vol] 18.6 mmol/L High 6.0-15.0 [facility] Comment on above: Performed By: #### ASHLEY CORADO ####[address] [address] [facility] Calcium [Mass/Vol] 7.5 mg/dL Low 8.2-10.2 [facility] Comment on above: Performed By: #### ASHLEY CORADO ####[address] [address] [facility] Chloride [Moles/Vol] 94 mmol/L Low 95-114 [facility] Comment on above: Performed By: #### ASHLEY CORADO ####[address] [address] [facility] CO2 [Moles/Vol] 24.3 mmol/L Normal 22.0-30.0 [facility] Comment on above: Performed By: #### ASHLEY CORADO ####[address] [place] [address] [facility] Creatinine [Mass/Vol] 4.63 mg/dL High 0.64-1.27 [facility] Comment on above: Performed By: #### ASHLEY CORADO ####[address] [place] [address] [facility] Creatinine Clr Calc Pharmacy 23.[address] [facility] Comment on above: Result Comment: PERF ORMED BY:[address] [place], [place] [phone] MEDICAL DIRECTORISRAEL CHAN M.D. Performed By: #### ASHLEY CORADO ####[address] [place] [address] [facility] Estimated GFR ( Zakiya 16 [facility] Comment on above: Result Comment: GFR estimated reference range: According to KDOQI guidelines, <60 ml/min/1.73m2 is sufficient to diagnose a patient with chronic kidney disease. Performed By: #### ASHLEY CORADO ####[address] [place] [address] [facility] Estimated GFR (Non- Am 13 [facility] Comment on above: Performed By: #### ASHLEY CORADO ####[address] [place] [address] [facility] Glucose [Mass/Vol] 123 mg/dL High 70-100 [facility] Comment on above: Result Comment: [place] Glucose Reference Range is dependent on time and content of last meal. Glucose of more than 200 mg/dL in a nonstressed, ambulatory subject supports the diagnosis of Diabetes Mellitus. ADA recommended reference range Performed By: #### ASHLEY CORADO ####[address] [address] [facility] Phosphate [Mass/Vol] 4.4 mg/dL Normal 2.5-4.6 [facility] Comment on above: Performed By: #### ASHLEY CORADO ####[address] [address] [facility] Potassium [Moles/Vol] 4.9 mmol/L Normal 3.5-5.1 [facility] Comment on above: Performed By: #### ASHLEY CORADO ####[address] [place] [address] [facility] Sodium [Moles/Vol] 132 mmol/L Low 136-146 [facility] Comment on above: Performed By: #### ASHLEY CORADO ####[address] [address] [facility] Urea nitrogen [Mass/Vol] 74 mg/dL High 9-23 [facility] Comment on above: Performed By: #### R ENAL, CBCNO ####[address] [address] [facility] Troponin I High Sensitivityo n 04-13-2022 Troponin I High Sensitivity 1345 pg/mL Off scale high 0-20 [facility] Comment on above: Order Comment: retim e for 1500 RN Dom Result Comment: Resu lts called at 1601 on 04/13/22PERFORMED BY:[address] [place], [place] [phone] MEDICAL DIRECTORISRAEL CHAN M.D. Performed By: #### H S TROP ####[address] [address] [facility] Troponin I High Sensitivity 1152 pg/mL Off scale high 0-20 [facility] Comment on above: Order Comment: retim e to 1100 per rn dom Result Comment: Resu lts called at 1319 on 04/13/22PERFORMED BY:[address] [place], [place] [phone] MEDICAL DIRECTORISRAEL CHAN M.D. Performed By: #### H S TROP ####[address] [address] [facility] Troponin I High Sensitivity 1607 pg/mL Off scale high 0-20 [facility] Comment on above: Result Comment: Resu lts called at 0951 on 04/13/22PERFORMED BY:[address] [place], [place] [phone] MEDICAL DIRECTORISRAEL CHAN M.D. Performed By: #### H S TROP ####[address] [address] [facility] XR chest 1V portableon 04-13 XR chest 1V portable Normal [facility] BLOOD CULTURE ID PANELon A. baumannii Not detected Normal NOT DETECTED [facility] Comment on above: Performed By: #### B CID2 #### [facility] [address] [place] [address] Dr. Kerline Bush Bacteriodes fragilis Not detected Normal NOT DETECTED [facility] Comment on above: Performed By: #### B CID2 #### [facility] [address] [place] [address] Dr. Kerline Bush BCID CONTROLS PASSED Normal [facility] Comment on above: Performed By: #### B CID2 #### [facility] [address] [place] [address] Dr. Kerline GARRISONDBTHD BLOOD CULTURE BOTTLE INFORMATION [facility] Comment on above: Performed By: #### B CID2 #### [facility] [address] [place] [address] Dr. Kerline Bush BCIDHD1 ANTIMICROBIAL RESIST ANCE GENES [facility] Comment on above: Performed By: #### B CID2 #### [facility] [address] [place] [address] Dr. Kerline Bush BCIDHD2 SEE BELOW [facility] Comment on above: Result Comment: Note : Antimicrobial resitance can occur via multiple mechanisms. A Not Detected result for the [employer] antomicrobial resistance gene assays does not indicate antimicrobial susceptibility. Subculturing is required for species identification and susceptibility testing of isolates. Performed By: #### B CID2 #### [facility] [address] [place] [address] Dr. Kerline Bush BCIDHD3 Positive [facility] Comment on above: Performed By: #### B CID2 #### [facility] [address] [place] [address] Dr. Kerline Bush BCIDHD4 Negative [facility] Comment on above: Performed By: #### B CID2 #### [facility] [address] [place] [address] Dr. Kerline Bush BCIDHD5 YEAST [facility] Comment on above: Performed By: #### B CID2 #### [facility] [address] [place] [address] Dr. Kerline Bush Bottle Set: Set 1 [facility] Comment on above: Performed By: #### B CID2 #### [facility] [address] [place] [address] Dr. Kerline Bush Bottle: Pediatric Normal [facility] Comment on above: Performed By: #### B CID2 #### [facility] [address] [place] [address] Dr. Kerline Bush C. neoformans/gattii Not detected Normal NOT DETECTED [facility] Comment on above: Performed By: #### B CID2 #### [facility] [address] [place] [address] Dr. Kerline Bush Kellen albicans Not detected Normal NOT DETECTED [facility] Comment on above: Performed By: #### B CID2 #### [facility] [address] [place] [address] Dr. Kerline Bush Kellen auris Not detected Normal NOT DETECTED [facility] Comment on above: Performed By: #### B CID2 #### [facility] [address] [place] [address] Dr. Kerline Bush Kellen glabrata Not detected Normal NOT DETECTED [facility] Comment on above: Performed By: #### B CID2 #### [facility] [address] [place] [address] Dr. Kerline Bush Kellen Krusei Not detected Normal NOT DETECTED [facility] Comment on above: Performed By: #### B CID2 #### [facility] [address] [place] [address] Dr. Kerline Bush Kellen Parapsilosis Not detected Normal NOT DETECTED [facility] Comment on above: Performed By: #### B CID2 #### [facility] [address] [place] [address] Dr. Kerline Bush Kellen Tropicalis Not detected Normal NOT DETECTED [facility] Comment on above: Performed By: #### B CID2 #### [facility] [address] [place] [address] Dr. Kerline Bush CTX-M Resistant Gene Not Applicable Normal NOT DETECTED [facility] Comment on above: Performed By: #### B CID2 #### [facility] [address] [place] [address] Dr. Kerline Bush E. Cloacae complex Not detected Normal NOT DETECTED [facility] Comment on above: Performed By: #### B CID2 #### [facility] [address] [place] [address] Dr. Kerline Bush E. faecalis Not detected Normal NOT DETECTED [facility] Comment on above: Performed By: #### B CID2 #### [facility] [address] [place] [address] Dr. Kerline Bush E. faecium Not detected Normal NOT DETECTED [facility] Comment on above: Performed By: #### B CID2 #### [facility] [address] [place] [address] Dr. Kerline Bush Enterobacteriaceae Not detected Normal NOT DETECTED [facility] Comment on above: Performed By: #### B CID2 #### [facility] [address] [place] [address] Dr. Kerline Bush Escherichia coli Not detected Normal NOT DETECTED [facility] Comment on above: Performed By: #### B CID2 #### [facility] [address] [place] [address] Dr. Kerline Bush H. influenzae Not detected Normal NOT DETECTED [facility] Comment on above: Performed By: #### B CID2 #### [facility] [address] [place] [address] Dr. Kerline Bush IMP Resistant Gene Not Applicable Normal NOT DETECTED [facility] Comment on above: Performed By: #### B CID2 #### [facility] [address] [place] [address] Dr. Kerline Bush K. oxytoca Not detected Normal NOT DETECTED [facility] Comment on above: Performed By: #### B CID2 #### [facility] [address] [place] [address] Dr. Kerline Bush K. pneumoniae Not detected Normal NOT DETECTED [facility] Comment on above: Performed By: #### B CID2 #### [facility] [address] [place] [address] Dr. Kerline Bush Klebsiella aerogenes Not detected Normal NOT DETECTED [facility] Comment on above: Performed By: #### B CID2 #### [facility] [address] [place] [address] Dr. Kerline Bush KPC Resistant Gene Not Applicable Normal NOT DETECTED [facility] Comment on above: Performed By: #### B CID2 #### [facility] [address] [place] [address] Dr. Kerline Bush List. monocytogenes Not detected Normal NOT DETECTED [facility] Comment on above: Performed By: #### B CID2 #### [facility] [address] [place] [address] Dr. Kerline Bush Mcr-1 Resistant Gene Not Applicable Normal NOT DETECTED [facility] Comment on above: Performed By: #### B CID2 #### [facility] [address] [place] [address] Dr. Kerline Bush mecA/C Not Applicable Normal NOT DETECTED [facility] Comment on above: Performed By: #### B CID2 #### [facility] [address] [place] [address] Dr. Kerline Bush mecA/C MREJ Not detected Normal NOT DETECTED [facility] Comment on above: Performed By: #### B CID2 #### [facility] [address] [place] [address] Dr. Kerline Bush N. meningitidis Not detected Normal NOT DETECTED [facility] Comment on above: Performed By: #### B CID2 #### [facility] [address] [place] [address] Dr. Kerline Bush NDM Resistant Gene Not Applicable Normal NOT DETECTED [facility] Comment on above: Performed By: #### B CID2 #### [facility] [address] [place] [address] Dr. Kerline Bush Oxa-48-like Not Applicable Normal NOT DETECTED [facility] Comment on above: Performed By: #### B CID2 #### [facility] [address] [place] [address] Dr. Kerline Bush Proteus Not detected Normal NOT DETECTED [facility] Comment on above: Performed By: #### B CID2 #### [facility] [address] [place] [address] Dr. Kerline Bush Pseud. aeruginosa Not detected Normal NOT DETECTED [facility] Comment on above: Performed By: #### B CID2 #### [facility] [address] [place] [address] Dr. Kerline Bush S. maltophilia Not detected Normal NOT DETECTED [facility] Comment on above: Performed By: #### B CID2 #### [facility] [address] [place] [address] Dr. Kerline Bush Salmonella Not detected Normal NOT DETECTED [facility] Comment on above: Performed By: #### B CID2 #### [facility] [address] [place] [address] Dr. Kerline Bush Seratia marcescens Not detected Normal NOT DETECTED [facility] Comment on above: Performed By: #### B CID2 #### [facility] [address] [place] [address] Dr. Kerline Bush Site: Lt Hand Normal [facility] Comment on above: Performed By: #### B CID2 #### [facility] [address] [place] [address] Dr. Kerline Bush Staph. aureus Detected Abnormal NOT DETECTED [facility] Comment on above: Performed By: #### B CID2 #### [facility] [address] [place] [address] Dr. Kerline Bush Staph. epidermidis Not detected Normal NOT DETECTED [facility] Comment on above: Performed By: #### B CID2 #### [facility] [address] [place] [address] Dr. Kerline Bush Staph. lugdunensis Not detected Normal NOT DETECTED [facility] Comment on above: Performed By: #### B CID2 #### [facility] [address] [place] [address] Dr. Kerline Bush Staphylococcus Detected Abnormal NOT DETECTED [facility] Comment on above: Performed By: #### B CID2 #### [facility] [address] [place] [address] Dr. Kerline Bush Strep. agalactiae Not detected Normal NOT DETECTED [facility] Comment on above: Performed By: #### B CID2 #### [facility] Laboratory [address] [place] [address] Dr. Kerline Bush Strep. pneumoniae Not detected Normal NOT DETECTED [facility] Comment on above: Performed By: #### B CID2 #### [facility] Laboratory [address] [place] [address] Dr. Kerline Bush Strep. pyogenes Not detected Normal NOT DETECTED [facility] [place] [facility] Comment on above: Performed By: #### B CID2 #### [facility] [place] [facility] [address] [place] [address] Dr. Kerline Bush Streptococcus Not detected Normal NOT DETECTED [facility] [place] [facility] Comment on above: Performed By: #### B CID2 #### [facility] [place] [facility] [address] [place] [address] Dr. Kerline Bullard/Liz Resist. Gene Not Applicable Normal NOT DETECTED [facility] Comment on above: Performed By: #### B CID2 #### [facility] [place] [facility] [address] [place] [address] Dr. Kerline Bush VIM Resistant Gene Not Applicable Normal NOT DETECTED [facility] [place] [facility] Comment on above: Performed By: #### B CID2 #### [facility] [place] [facility] [address] [place] [address] Dr. Kerline Bush BNPon 04-12-2022 NT PRO BNP >42913.0 Critically high <=900.0 [facility] Comment on above: Performed By: #### H STROPN, BNP, BMP #### [facility] [place] [facility] [address] [place] [address] Dr. Kerline Bush CARDIAC ANDRESSA ADMITon 022 CK [Catalytic activity/Vol] 373 U/L Critically high 39-308 [facility] Comment on above: Performed By: #### H STROPN, BNP, BMP #### [facility] [place] [facility] [address] [place] [address] Dr. Kerline Bush CK.MB [Mass/Vol] 1.73 ng/mL Normal <=3.60 [facility] Comment on above: Performed By: #### H STROPN, BNP, BMP #### [facility] [place] [facility] [address] [place] [address] Dr. Kerline Bush HSTROP 1186.8 pg/mL Critically high 4.0-76.1 [facility] Comment on above: Result Comment: CUT- OFF POINTS HAVE BEEN ESTABLISHED BASED ON THE FOURTH UNIVERSAL DEFINITIONS OF MYOCARDIAL INFARCTION. THE UPPER REFERENCE LIMIT (URL) OF TROPONIN, DEFINED THE 99TH PERCENTILE OF cTnI DISTRIBUTION IN A REFERENCE POPULATION, HAS BEEN CONFIRMED THE DECISION THRESHOLD FOR NE DIAGNOSIS. Performed By: #### H STROPN, BNP, BMP #### [facility] [place] [facility] [address] [address] [address] Kerline Bush CHERYL 826 ng/mL Critically high 16-[address] [facility] Comment on above: Performed By: #### H STROPN, BNP, BMP #### [facility] [place] [facility] [address] [place] [address] Dr. Kerline Bush CBC W MANUAL DIFFon 04-12-20 22 ATYPICAL LYMPH # Normal [facility] Comment on above: Performed By: #### H STROPN, BNP, BMP #### [facility] [place] [facility] [address] [place] [address] Dr. Kerline Bush ATYPICAL LYMPH % Normal [facility] Comment on above: Performed By: #### H STROPN, BNP, BMP #### [facility] [place] [facility] [address] [address] [address] Kerline Bush BAND # 0.8 103/ul Critically high 0.0-0.[address] [facility] Comment on above: Performed By: #### H STROPN, BNP, BMP #### [facility] [place] [facility] [address] [place] [address] Dr. Kerline Bush BAND % 3 % Normal 0-5 [facility] [place] [facility] Comment on above: Performed By: #### H STROPN, BNP, BMP #### [facility] [place] [facility] [address] [place] [address] Dr. Kerline Bush BASOM # 0.00 103/ul Normal 0.00-0.10 [facility] [place] [facility] Comment on above: Performed By: #### H STROPN, BNP, BMP #### [facility] [place] [facility] [address] [place] [address] Dr. Kerline Bush BASOM % 0.0 % Critically low 0.2-2.0 [facility] Comment on above: Performed By: #### H STROPN, BNP, BMP #### [facility] [place] [facility] [address] [address] [address] Kerline Bush BLAST # Normal [facility] Comment on above: Performed By: #### H STROPN, BNP, BMP #### [facility] [place] [facility] [address] [address] [address] Kerline Bush BLAST % Normal [facility] Comment on above: Performed By: #### H STROPN, BNP, BMP #### [facility] [place] [facility] [address] [address] [address] Kerline Bush CORRECTED WBC Normal 4.0-11.0 [facility] Comment on above: Performed By: #### H STROPN, BNP, BMP #### [facility] [place] [facility] [address] [address] [address] Kerline Bush EOS # 0.00 103/ul Normal 0.00-0.70 [facility] Comment on above: Performed By: #### H STROPN, BNP, BMP #### [facility] [place] [facility] [address] [address] [address] Kerline Bush EOS% 0.0 % Critically low 0.9-7.0 [facility] Comment on above: Performed By: #### H STROPN, BNP, BMP #### [facility] [place] [facility] [address] [address] [address] Kerline Bush HCT 32.1 % Critically low 42.0-54.0 [facility] Comment on above: Performed By: #### H STROPN, BNP, BMP #### [facility] [place] [facility] [address] [address] [address] Kerline Bush HGB 10.5 g/dl Critically low 14.0-18.0 [facility] Comment on above: Performed By: #### H STROPN, BNP, BMP #### [facility] [place] [facility] [address] [address] [address] Kerline Bush LYMPHM # 0.51 103/ul Critically low 1.20-3.80 [facility] Comment on above: Performed By: #### H STROPN, BNP, BMP #### [facility] [place] [facility] [address] [address] [address] Kerline Bush LYMPHM% 2.0 % Critically low 20.5-60.0 [facility] Comment on above: Performed By: #### H STROPN, BNP, BMP #### [facility] [place] [facility] [address] [address] [address] Kerline Bush MCH 24.5 pg Critically low 25.9-34.0 [facility] Comment on above: Performed By: #### H STROPN, BNP, BMP #### [facility] [place] [facility] [address] [address] [address] Kerline Bush MCHC 32.7 g/dl Normal 29.9-35.2 [facility] Comment on above: Performed By: #### H STROPN, BNP, BMP #### [facility] [place] [facility] [address] [place] [address] Dr. Kerline Bush MCV 74.8 fL Critically low 80.0-94.0 [facility] Comment on above: Performed By: #### H STROPN, BNP, BMP #### [facility] [place] [facility] [address] [place] [address] Dr. Kerline Bush METAMYELOCYTE # Normal [facility] Comment on above: Performed By: #### H STROPN, BNP, BMP #### [facility] [place] [facility] [address] [place] [address] Dr. Kerline Bush METAMYELOCYTE % Normal [facility] Comment on above: Performed By: #### H STROPN, BNP, BMP #### [facility] [place] [facility] [address] [place] [address] Dr. Kerline Bush MONOM# 1.78 103/ul Critically high 0.30-0.80 [facility] Comment on above: Performed By: #### H STROPN, BNP, BMP #### [facility] [place] [facility] [address] [place] [address] Dr. Kerline Bush MONOM% 7.0 % Normal 1.7-12.0 [facility] Comment on above: Performed By: #### H STROPN, BNP, BMP #### [facility] [place] [facility] [address] [address] [address] Kerline Bush MPV 9.6 fL Normal 9.5-13.5 [facility] Comment on above: Performed By: #### H STROPN, BNP, BMP #### [facility] [place] [facility] [address] [address] [address] Kerline Bush MYELOCYTE # Normal [facility] Comment on above: Performed By: #### H STROPN, BNP, BMP #### [facility] [place] [facility] [address] [address] [address] Kerline Bush MYELOCYTE % Normal [facility] Comment on above: Performed By: #### H STROPN, BNP, BMP #### [facility] [place] [facility] [address] [address] [address] Kerline Bush NRBC Normal [facility] Comment on above: Performed By: #### H STROPN, BNP, BMP #### [facility] [place] [facility] [address] [address] [address] Kerline Bush PLT 270 103/ul Normal 150-450 [facility] Comment on above: Performed By: #### H STROPN, BNP, BMP #### [facility] [place] [facility] [address] [address] [address] Kerline Bush RBC 4.29 106/ul Critically low 4.70-6.10 [facility] Comment on above: Performed By: #### H STROPN, BNP, BMP #### [facility] [place] [facility] [address] [address] [address] Kerline Bush RDW 19.5 % Critically high 11.0-15.0 [facility] Comment on above: Performed By: #### H STROPN, BNP, BMP #### [facility] [place] [facility] [address] [address] [address] Kerline Bush SEG # 22.35 103/ul Critically high 1.40-6.50 [facility] Comment on above: Performed By: #### H STROPN, BNP, BMP #### [facility] [place] [facility] [address] [address] [address] Kerline Bush SEG % 88.0 % Critically high 43.0-75.0 [facility] Comment on above: Performed By: #### H STROPN, BNP, BMP #### [facility] [place] [facility] [address] [place], [place] [address] Dr. Kerline Bush WBC 25.4 103/ul Critically high 4.0-11.0 [facility] Comment on above: Performed By: #### H STROPN, BNP, BMP #### [facility] [place] [facility] [address] [place], [place] [address] ABD/PELVIS WO CONon 04-12 CT ABD/PELVIS WO CON EXAMINATION: CT ABD/PELVIS WO CON, 04/12/2022 5:55 PM EDT HISTORY: UNSPECIFIED ABDOMINAL PAIN COMPARISON: 02/09/2022 TECHNIQUE: CT scan of the abdomen and pelvis was performed without IV contrast. CT dose reduction technique was used, including Automated Exposure Control. FINDINGS: Abdomen A small to moderate-sized loculated appearing right pleural effusion has increased slightly. A small loculated appearing left pleural effusion is new. The size of the heart is within normal limits. Diminished attenuation of blood within the ventricles relative to myocardium suggesting anemia. A small pericardial effusion is unchanged. The stomach is unremarkable in appearance. No hepatic mass is identified. There is no intrahepatic bile duct dilatation. The gallbladder is absent. The spleen is absent. The pancreas appears normal. The pancreatic duct is not dilated. The left adrenal gland appears normal. Masslike thickening of the right adrenal gland is unchanged. The left kidney appears normal. A hyperdense mid pole right renal nodule, less than 1 cm in diameter, likely represents a hemorrhagic or proteinaceous cyst, unchanged since the prior. No free intra-abdominal air is detected. A large volume of perihepatic ascites has increased. No adenopathy is observed. There are rare aortic calcifications. There is an IVC filter in place, unchanged since the prior. The small bowel does not appear distended. No air-fluid levels are identified. A hernia is not identified. Advanced subcutaneous edema within the abdominal wall has increased. Pelvis The colon does not appear distended. No significant colonic diverticula are observed. The appendix is absent. The urinary bladder is unremarkable in appearance. A large volume of free pelvic fluid has increased. Musculoskeletal There is suspicion of a large left paracentral disc protrusion at L4-5. IMPRESSION: 1. Small to moderate-sized loculated appearing right pleural effusion, slightly increased. 2. Small loculated appearing left pleural effusion, new. 3. Small pericardial effusion, unchanged. 4. Masslike thickening of the right adrenal gland, possibly the consequence of benign hypertrophy, unchanged. 5. Large volume of perihepatic ascites, increased. 6. Advanced subcutaneous edema within the abdomen and pelvis, consistent with anasarca, increased. 7. Large volume of pelvic ascites, increased. 8. Suspicion of a large left paracentral disc protrusion at L4-5, new or increased. Electronically authenticated by: CIARRA SERVIN Date: 2022-04-12 19:22 Normal [facility] [place] [facility] CULTURE BLOODon 04-12-2022 Microscopic examination of blood, culture Culture Observations: Pediatric bottle positive Culture Observations: See accession: [id number] for MARY Isolate 1 Staphylococcus aureus Growth of Normal [facility] [place] [facility] Comment on above: Performed By: #### U MICRO, ERUR #### [facility] [place] [facility] [address] [address] [address] Kerline Bush Covid-19 PCR (CVDTB)on 03-24 SARS-CoV-2 (COVID-19) RNA PARADISE+probe Ql (Unsp spec) Not detected Normal NOT DETECTED [facility] [place] [facility] Comment on above: Result Comment: When diagnostic testing is negative, the possibility of a false negative should be considered in the context of a patient's recent exposures and the presence of clinical signs and symptoms consistent with SARS-CoV-2. This test is not yet approved or cleared by the [place] FDA. When there are no FDA-approved or cleared tests available, and other criteria are met, FDA can make tests available under an emergency access mechanism called an Emergency Use Authorization (EUA). The EUA for this test is supported by the Nurse Licensed Practical of Health and Human Service's declaration that circumstances exist to justify the emergency use of in vitro diagnostics for the detection and/or diagnosis of the virus that causes COVID-19. This EUA will remain in effect for the duration of the COVID-19 declaration justifying emergency of IVDs, unless it is terminated or revoked by the FDA (after which the test may no longer be used). Performed By: #### C VDTBH #### [facility] [place] [facility] [address] [address] [address] Kerline Bush LACTATE/LACTIC ACIDon 2021 Lactate [Moles/Vol] 3.2 mmol/L Critically high 0.4-1.9 [facility] Comment on above: Performed By: #### U MICRO, ERUR #### [facility] [place] [facility] [address] [address] [address] Kerline Bush PROF 14(COMP METB)on 022 Albumin [Mass/Vol] 2.9 g/dL Critically low 3.4-5.0 [facility] Comment on above: Performed By: #### H STROPN, BNP, BMP #### [facility] [place] [facility] [address] [address] [address] Kerline Bush Albumin/Globulin [Mass ratio] 0.5 {ratio} Normal [facility] Comment on above: Performed By: #### H STROPN, BNP, BMP #### [facility] [place] [facility] [address] [address] [address] Kerline Bush ALP [Catalytic activity/Vol] 129 U/L Critically high 46-116 [facility] Comment on above: Performed By: #### H STROPN, BNP, BMP #### [facility] [place] [facility] [address] [address] [address] Kerline Bush ALT [Catalytic activity/Vol] 30 U/L Normal 16-63 [facility] Comment on above: Performed By: #### H STROPN, BNP, BMP #### [facility] [place] [facility] [address] [address] [address] Kerline Buhs Anion gap [Moles/Vol] 17.7 mmol/L Normal [facility] Comment on above: Performed By: #### H STROPN, BNP, BMP #### [facility] [place] [facility] [address] [address] [address] Kerline Bush AST [Catalytic activity/Vol] 41 U/L Critically high 15-37 [facility] Comment on above: Performed By: #### H STROPN, BNP, BMP #### [facility] [place] [facility] [address] [address] [address] Kerline Bush Bilirubin [Mass/Vol] 3.8 mg/dL Critically high 0.2-1.0 [facility] Comment on above: Performed By: #### H STROPN, BNP, BMP #### [facility] [place] [facility] [address] [place] [address] Dr. Kerline Bush Calcium [Mass/Vol] 7.9 mg/dL Critically low 8.5-10.1 [facility] [place] [facility] Comment on above: Performed By: #### H STROPN, BNP, BMP #### [facility] [place] [facility] [address] [place] [address] Dr. Kerline Bush Chloride [Moles/Vol] 96 mmol/L Critically low 98-107 [facility] Comment on above: Performed By: #### H STROPN, BNP, BMP #### [facility] [place] [facility] [address] [place] [address] Dr. Kerline Bush CO2 [Moles/Vol] 25.4 mmol/L Normal 21.0-32.0 [facility] Comment on above: Performed By: #### H STROPN, BNP, BMP #### [facility] [place] [facility] [address] [place] [address] Dr. Kerline Bush Creatinine [Mass/Vol] 4.44 mg/dL Critically high 0.70-1.30 [facility] Comment on above: Performed By: #### H STROPN, BNP, BMP #### [facility] [place] [facility] [address] [place] [address] Dr. Kerline Bush EGFR-AF ROMANIAN 17 mL/min/1.73m2 Critically low >=60 [facility] [place] [facility] Comment on above: Performed By: #### H STROPN, BNP, BMP #### [facility] [place] [facility] [address] [place] [address] Dr. Kerline Bush EGFR-NON AF ROMANIAN 14 mL/min/1.73m2 Critically low >=60 [facility] Comment on above: Performed By: #### H STROPN, BNP, BMP #### [facility] [place] [facility] [address] [place] [address] Dr. Kerline Bush Globulin (S) [Mass/Vol] 6.2 g/dL Normal [facility] [place] [facility] Comment on above: Performed By: #### H STROPN, BNP, BMP #### [facility] [place] [facility] [address] [address] [address] Kerline Bush Glucose [Mass/Vol] 138 mg/dL Critically high 74-106 [facility] Comment on above: Performed By: #### H STROPN, BNP, BMP #### [facility] [place] [facility] [address] [address] [address] Kerline Bush Potassium [Moles/Vol] 5.1 mmol/L Normal 3.5-5.1 [facility] Comment on above: Performed By: #### H STROPN, BNP, BMP #### [facility] [place] [facility] [address] [address] [address] Kerline Bush Protein [Mass/Vol] 9.1 g/dL Critically high 6.4-8.2 [facility] Comment on above: Performed By: #### H STROPN, BNP, BMP #### [facility] [place] [facility] [address] [place] [address] Dr. Kerline Bush Sodium [Moles/Vol] 134 mmol/L Critically low 136-145 [facility] Comment on above: Performed By: #### H STROPN, BNP, BMP #### [facility] [place] [facility] [address] [address] [address] Kerline Bush Urea nitrogen [Mass/Vol] 73.0 mg/dL Critically high 7.0-18.0 [facility] Comment on above: Performed By: #### H STROPN, BNP, BMP #### [facility] [place] [facility] [address] [address] [address] Kerline Bush Urea nitrogen/Creatinine [Mass ratio] 16.4 mg/mg [facility] [place] [facility] Comment on above: Performed By: #### H STROPN, BNP, BMP #### [facility] [place] [facility] [address] [address] [address] Kerline Bush PROTIMEon 04-12-2022 INR Coag (PPP) [Relative time] 2.13 {INR} [facility] [place] [facility] Comment on above: Performed By: #### H STROPN, BNP, BMP #### [facility] [place] [facility] [address] [place] [address] Dr. Kerline Bush INR GUIDELINES SEE BELOW Normal [facility] Comment on above: Result Comment: ARIANNA RED INR: 2.0 - 3.0 CONDITIONS NOT LISTED BELOW 2.5 - 3.5 FOR PROSTHETIC HEART VALVE REPLACEMENT 2.5 - 3.5 RECURRENT THROMBOSIS Performed By: #### H STROPN, BNP, BMP #### [facility] [place] [facility] [address] [place], [place] [address] Dr. Kerline Bush PT Coag (PPP) [Time] 21.9 s Critically high 9.0-11.6 [facility] Comment on above: Performed By: #### H STROPN, BNP, BMP #### [facility] [place] [facility] [address] [place], [place] [address] Dr. Kerline Bush PTTon 04-12-2022 aPTT Coag (Bld) [Time] 41.4 s Critically high 22.3-36.2 [facility] Comment on above: Performed By: #### H STROPN, BNP, BMP #### [facility] [place] [facility] [address] [address] [address] Kerline Bush XR CHEST 1 Von 04-12-2022 XR CHEST 1 V EXAM: XR CHEST 1 V HISTORY: CHEST PAIN, UNSPECIFIED COMPARISON: Portable chest 02/09/2022 TECHNIQUE: Portable chest FINDINGS: Poor inspiratory effort. This results in crowding of the vessels and limited evaluation of the costophrenic angles and hemidiaphragms. No pneumothorax. The visualized lung parenchyma appears unremarkable. IMPRESSION: Limited study secondary to poor inspiratory effort. No gross visualized acute abnormality Electronically authenticated by: BETTYE PETTY Date: 2022-04-12 18:59 Normal [facility] [place] [facility] CHEMISTRYOrdered By: Alycia Mack on 03-07-2022 INR POC FT 2.1 [facility] PT POC FT 25.1 s High 10.8 - 13.6 second(s) [facility] Albumin [Mass/volume] in Ser um or PlasmaOrdered By: Tristan Wallis on 02-21-2022 Albumin [Mass/Vol] 2.8 g/dL 3.2-5.5 [facility] Automated erythrocytes count in urine sediment (number/area)Ordered By: Tristan Wallis on 02-21-2022 RBC Auto (Urine sed) [#/Area] 1-2 [HPF] 0-4 [facility] Automated leukocytes count i n urine sediment (number/area)Ordered By: Tristan Wallis on 02-21-2022 WBC Auto (Urine sed) [#/Area] None seen [HPF] 0-4 [facility] Bilirubin Auto test strip Ql (U)Ordered By: Tristan Wallis on 02-21-2022 Bilirubin Ql (U) Negative Negative [facility] Blood hemoglobin measurement (mass/volume)Ordered By: Tristan Wallis on 02-21-2022 Hemoglobin (Bld) [Mass/Vol] 10.3 g/dL 13.0-17.0 [facility] CHEMISTRYOrdered By: Holly Gray on 02-21-2022 INR POC FT 1.5 [facility] PT POC FT 17.6 s High 10.8 - 13.6 second(s) [facility] CT biopsyOrdered By: Ari ferreira on 02-21-2022 Transferrin [Mass/Vol] 204 mg/dL 180-380 [facility] Creatinine [Mass/volume] in UrineOrdered By: Tristan Wallis on 02-21-2022 Creatinine (U) [Mass/Vol] 38.4 mg/dL [facility] Comment on above: No reference range e stablished Creatinine and Glomerular fi ltration rate.predicted panel (S/P/Bld)Ordered By: Tristan Wallis on 02-21-2022 Creatinine [Mass/Vol] 3.73 mg/dL 0.64-1.27 [facility] Dipstick and Microscopicon 0 02-21-2022 Appearance (U) Clear Normal Clear [facility] Comment on above: Order Comment: Reaso n for Exam CKD (chronic kidney disease) stage 4, GFR 15-29 ml/min;Diabe Name Collection Type:: Clean-Voided Midstream Performed By: #### A DDONUAPLUS ####[facility] [id number] [place] [address] [facility] Bacteria,Urine None Seen Normal None Seen [facility] Comment on above: Order Comment: Reaso n for Exam CKD (chronic kidney disease) stage 4, GFR 15-29 ml/min;Diabe Name Collection Type:: Clean-Voided Midstream Performed By: #### A DDONUAPLUS ####[address] [address] [facility] Bilirubin,Urine Negative Normal Negative [facility] Comment on above: Order Comment: Reaso n for Exam CKD (chronic kidney disease) stage 4, GFR 15-29 ml/min;Diabe Name Collection Type:: Clean-Voided Midstream Performed By: #### A DDONUAPLUS ####[address] [address] [facility] Color (U) Yellow Normal Yellow [facility] Comment on above: Order Comment: Reaso n for Exam CKD (chronic kidney disease) stage 4, GFR 15-29 ml/min;Diabe Name Collection Type:: Clean-Voided Midstream Performed By: #### A DDONUAPLUS ####[address] [id number] [facility] Glucose Ql (U) Normal Normal Normal [facility] Comment on above: Order Comment: Reaso n for Exam CKD (chronic kidney disease) stage 4, GFR 15-29 ml/min;Diabe Name Collection Type:: Clean-Voided Midstream Performed By: #### A DDONUAPLUS ####[address] [address] [facility] Hyaline Casts,Urine 0-8 Normal 0-8 [facility] Comment on above: Order Comment: Reaso n for Exam CKD (chronic kidney disease) stage 4, GFR 15-29 ml/min;Diabe Name Collection Type:: Clean-Voided Midstream Result Comment: PERF ORMED BY:[address] [place], [place] [id number] MEDICAL DIRECTORISRAEL CHAN M.D. Performed By: #### A DDONUAPLUS ####[address] [address] [facility] Ketones Ql (U) Negative Normal Negative [facility] Comment on above: Order Comment: Reaso n for Exam CKD (chronic kidney disease) stage 4, GFR 15-29 ml/min;Diabe Name Collection Type:: Clean-Voided Midstream Performed By: #### A DDONUAPLUS ####[address] [address] [facility] Leukocyte esterase Test strip Ql (U) Negative Normal Negative [facility] Comment on above: Order Comment: Reaso n for Exam CKD (chronic kidney disease) stage 4, GFR 15-29 ml/min;Diabe Name Collection Type:: Clean-Voided Midstream Performed By: #### A DDONUAPLUS ####[place] [id number] [facility] Nitrite,Urine Negative Normal Negative [facility] Comment on above: Order Comment: Reaso n for Exam CKD (chronic kidney disease) stage 4, GFR 15-29 ml/min;Diabe Name Collection Type:: Clean-Voided Midstream Performed By: #### A DDONUAPLUS ####[address] Occult Blood,Urine Trace High Negative [facility] Comment on above: Order Comment: Reaso n for Exam CKD (chronic kidney disease) stage 4, GFR 15-29 ml/min;Diabe Name Collection Type:: Clean-Voided Midstream Performed By: #### A DDONUAPLUS ####[place] [id number] [facility] pH (U) 6.0 [pH] Normal 5.0-9.0 [facility] Comment on above: Order Comment: Reaso n for Exam CKD (chronic kidney disease) stage 4, GFR 15-29 ml/min;Diabe Name Collection Type:: Clean-Voided Midstream Performed By: #### A DDONUAPLUS ####[place] [id number] [facility] Protein,Urine Trace High Negative [facility] Comment on above: Order Comment: Reaso n for Exam CKD (chronic kidney disease) stage 4, GFR 15-29 ml/min;Diabe Name Collection Type:: Clean-Voided Midstream Performed By: #### A DDONUAPLUS ####[place] [id number] [place] RBC,Urine 1-2 Normal 0-4 [facility] Comment on above: Order Comment: Reaso n for Exam CKD (chronic kidney disease) stage 4, GFR 15-29 ml/min;Diabe Name Collection Type:: Clean-Voided Midstream Performed By: #### A DDONUAPLUS ####[place] [id number] [facility] Specificy [place],Urine 1.010 Normal 1.001-1.030 [facility] Comment on above: Order Comment: Reaso n for Exam CKD (chronic kidney disease) stage 4, GFR 15-29 ml/min;Diabe Name Collection Type:: Clean-Voided Midstream Performed By: #### A DDONUAPLUS ####[address] Squamous Epithelial Cell,Urine None Seen Normal 0-2 [facility] Comment on above: Order Comment: Reaso n for Exam CKD (chronic kidney disease) stage 4, GFR 15-29 ml/min;Diabe Name Collection Type:: Clean-Voided Midstream Performed By: #### A DDONUAPLUS ####[address] Urobilinogen,Urine Normal Normal Normal [facility] Comment on above: Order Comment: Reaso n for Exam CKD (chronic kidney disease) stage 4, GFR 15-29 ml/min;Diabe Name Collection Type:: Clean-Voided Midstream Performed By: #### A DDONUAPLUS ####[place] [id number] [facility] WBC,Urine None Seen Normal 0-4 [facility] Comment on above: Order Comment: Reaso n for Exam CKD (chronic kidney disease) stage 4, GFR 15-29 ml/min;Diabe Name Collection Type:: Clean-Voided Midstream Performed By: #### A DDONUAPLUS ####[place] [id number] [facility] Erythrocyte distribution wid th Auto (RBC) [Ratio]Ordered By: Tristan Wallis on 02-21-2022 Erythrocyte distribution width (RBC) [Ratio] 22.0 % 12.0-14.8 [facility] Estimated glomerular filtrat ion rate (GFR) non- AmericanOrdered By: Tristan Wallis on 02-21-2022 GFR/1.73 sq M.predicted among non-blacks MDRD (S/P/Bld) [Vol rate/Area] 17 mL/Min [facility] Ferritinon 02-21-2022 Ferritin [Mass/Vol] 22.2 ng/mL Low 23.9-336.2 [facility] Comment on above: Order Comment: Reaso n for Exam CKD (chronic kidney disease) stage 4, GFR 15-29 ml/min;Diabe Performed By: #### P TH, [id number], MARCELO, FE and TIBC, URIC, MG, RENAL ####[address] Ferritin [Mass/volume] in Se rum or PlasmaOrdered By: Tristan Wallis on 02-21-2022 Ferritin [Mass/Vol] 22.2 ng/mL 23.9-336.2 [facility] Hematocrit Auto (Bld) [Volum e fraction]Ordered By: Tristan Wallis on 02-21-2022 Hematocrit (Bld) [Volume fraction] 32.7 % 38.8-50.0 [facility] Hemogram CBC Without Diffon 02-21-2022 Erythrocyte distribution width (RBC) [Ratio] 22.0 % High 12.0-14.8 [facility] Comment on above: Order Comment: Reaso n for Exam CKD (chronic kidney disease) stage 4, GFR 15-29 ml/min;Diabe Performed By: #### C BCNO ####[place] [id number] [facility] Hematocrit (Bld) [Volume fraction] 32.7 % Low 38.8-50.0 [facility] Comment on above: Order Comment: Reaso n for Exam CKD (chronic kidney disease) stage 4, GFR 15-29 ml/min;Diabe Performed By: #### C BCNO ####[place] [id number] [place] Hemoglobin (Bld) [Mass/Vol] 10.3 g/dL Low 13.0-17.0 [facility] Comment on above: Order Comment: Reaso n for Exam CKD (chronic kidney disease) stage 4, GFR 15-29 ml/min;Diabe Performed By: #### C BCNO ####[place] [id number] [facility] MCH (RBC) [Entitic mass] 25.5 pg Low 27.5-35.2 [facility] Comment on above: Order Comment: Reaso n for Exam CKD (chronic kidney disease) stage 4, GFR 15-29 ml/min;Diabe Performed By: #### C BCNO ####[place] [id number] [facility] MCV (RBC) [Entitic vol] 81.3 fL Low 83.5-101 [facility] Comment on above: Order Comment: Reaso n for Exam CKD (chronic kidney disease) stage 4, GFR 15-29 ml/min;Diabe Performed By: #### C BCNO ####[place] [id number] [facility] Mean Corpuscular HGB Conc 31.4 g/dL Low 32.5-35.6 [facility] Comment on above: Order Comment: Reaso n for Exam CKD (chronic kidney disease) stage 4, GFR 15-29 ml/min;Diabe Performed By: #### C BCNO ####[place] [id number] [facility] Platelet mean volume (Bld) [Entitic vol] 7.4 fL Normal 6.6-10.1 [facility] Comment on above: Order Comment: Reaso n for Exam CKD (chronic kidney disease) stage 4, GFR 15-29 ml/min;Diabe Result Comment: PERF ORMED BY:[place] [address] [place], [place] [phone] MEDICAL DIRECTORISRAEL CHAN M.D. Performed By: #### C BCNO ####[place] [id number] [facility] Platelets (Bld) [#/Vol] 313 10*3/uL Normal 150-450 [facility] Comment on above: Order Comment: Reaso n for Exam CKD (chronic kidney disease) stage 4, GFR 15-29 ml/min;Diabe Performed By: #### C BCNO ####[place] [id number] RBC (Bld) [#/Vol] 4.02 10*6/uL Normal 3.90-5.60 [facility] Comment on above: Order Comment: Reaso n for Exam CKD (chronic kidney disease) stage 4, GFR 15-29 ml/min;Diabe Performed By: #### C BCNO ####[place] [id number] [facility] WBC (Bld) [#/Vol] 6.3 10*3/uL Normal 4.1-10.5 [facility] Comment on above: Order Comment: Reaso n for Exam CKD (chronic kidney disease) stage 4, GFR 15-29 ml/min;Diabe Performed By: #### C BCNO ####[place] [id number] [facility] Iron [Mass/volume] in Serum or PlasmaOrdered By: Tristan Wallis on 02-21-2022 Iron [Mass/Vol] 18 ug/dL 40-160 [facility] Iron and TIBC Profileon 08-0 % Iron Saturation 6.0 % Low 20-50 [facility] Comment on above: Order Comment: Reaso n for Exam CKD (chronic kidney disease) stage 4, GFR 15-29 ml/min;Diabe Performed By: #### P TH, [id number], MARCELO, FE and TIBC, URIC, MG, RENAL ####[place] [id number] [facility] Iron [Mass/Vol] 18 ug/dL Low 40-160 [facility] Comment on above: Order Comment: Reaso n for Exam CKD (chronic kidney disease) stage 4, GFR 15-29 ml/min;Diabe Performed By: #### P TH, [id number], MARCELO, FE and TIBC, URIC, MG, RENAL ####[facility] [id number] [place] [address] [facility] Total Iron Binding Capacity 286 ug/dL Normal 255-450 [facility] Comment on above: Order Comment: Reaso n for Exam CKD (chronic kidney disease) stage 4, GFR 15-29 ml/min;Diabe Performed By: #### P TH, [id number], MARCELO, FE and TIBC, URIC, MG, RENAL ####[place] [id number] [place] [id number] [facility] Transferrin [Mass/Vol] 204 mg/dL Normal 180-380 [facility] Comment on above: Order Comment: Reaso n for Exam CKD (chronic kidney disease) stage 4, GFR 15-29 ml/min;Diabe Performed By: #### P TH, [id number], MARCELO, FE and TIBC, URIC, MG, RENAL ####[place] [id number] [place] [address] [facility] Iron binding capacity [Mass/ volume] in Serum or PlasmaOrdered By: Tristan Wallis on 02-21-2022 Iron binding capacity [Mass/Vol] 286 ug/dL 255-450 [facility] Iron saturation [Mass Fracti on] in Serum or PlasmaOrdered By: Tristan Wallis on 02-21-2022 Iron saturation [Mass fraction] 6.0 % 20-50 [facility] Ketones Auto test strip (U) [Mass/Vol]Ordered By: Tristan Wallis on 02-21-2022 Ketones (U) [Mass/Vol] Negative Negative [facility] - Chemistry and C hemistry - challengeOrdered By: Tristan Wallis on 02-21-2022 Magnesium [Mass/Vol] 1.8 mg/dL 1.6-2.6 [facility] - UrinalysisOrder ed By: Tristan Wallis on 02-21-2022 Hyaline casts LM Ql (Urine sed) 0-8 [LPF] 0-8 [facility] MCH Auto (RBC) [Entitic mass ]Ordered By: Tristan Wallis on 02-21-2022 MCH (RBC) [Entitic mass] 25.5 pg 27.5-35.2 [facility] MCHC Auto (RBC) [Mass/Vol]Or dered By: Tristan Wallis on 02-21-2022 MCHC (RBC) [Mass/Vol] 31.4 g/dL 32.5-35.6 [facility] MCV Auto (RBC) [Entitic vol] Ordered By: Tristan Wallis on 02-21-2022 MCV (RBC) [Entitic vol] 81.3 fL 83.5-101 [facility] Magnesiumon 02-21-2022 Magnesium [Mass/Vol] 1.8 mg/dL Normal 1.6-2.6 [facility] Comment on above: Order Comment: Reaso n for Exam CKD (chronic kidney disease) stage 4, GFR 15-29 ml/min;Diabe Performed By: #### P TH, [id number], MARCELO, FE and TIBC, URIC, MG, RENAL ####[facility] [id number] [place] [address] [facility] No Panel InformationOrdered By: Tristan Wallis on 02-21-2022 25-Hydroxy Vitamin D Total 25.9 ng/mL 30-100 [facility] Comment on above: VITAMIN D STATUS 25( [place])VITAMIN D RANGE (ng/mL) Deficient <20 Insufficient 20 to <30 Sufficient 30 to 100 Reference: Jah MF,Tereza NC, Adonay REY, et al. Evaluation,treatment, and prevention of vitamin D deficiency; an Endocrine Society clinical practice guideline. JCEM. 2010; 96(7):1911-30. Estimated GFR () 20 mL/Min [facility] Comment on above: GFR estimated refere nce range: According to KDOQI guidelines, <60 ml/min/1.73m2 is sufficient to diagnose a patient with chronic kidney disease. Pharmacy Creatinine Clearance (Chem N/A [facility] Parathyroid Hormone Intacton 02-21-2022 Parathyroid Hormone Intact 286.1 pg/mL High 12-88 [facility] Comment on above: Order Comment: Reaso n for Exam CKD (chronic kidney disease) stage 4, GFR 15-29 ml/min;Diabe Result Comment: PERF ORMED BY:[facility] [place], [place] [phone] MEDICAL DIRECTORISRAEL CHAN M.D. Performed By: #### P TH, [id number], MARCELO, FE and TIBC, URIC, MG, RENAL ####[facility] [id number] [place] [address] [facility] Phosphate [Mass/volume] in S socrates or PlasmaOrdered By: Tristan Pattondir on 02-21-2022 Phosphate [Mass/Vol] 4.3 mg/dL 2.5-4.6 [facility] Platelet mean volume Auto (B ld) [Entitic vol]Ordered By: Tristan Bimal on 02-21-2022 Platelet mean volume (Bld) [Entitic vol] 7.4 fL 6.6-10.1 [facility] Platelets Auto (Bld) [#/Vol] Ordered By: Tristan Bimal on 02-21-2022 Platelets (Bld) [#/Vol] 313 10*3/uL 150-450 [facility] Protein Auto test strip (U) [Mass/Vol]Ordered By: Tristan Wallis on 02-21-2022 Protein (U) [Mass/Vol] Trace mg/dL Negative [facility] Protein Creat Ratio Ur Rando mon 02-21-2022 Creatinine, Urine (Random) 38.4 mg/dL Normal [facility] Comment on above: Order Comment: Reaso n for Exam CKD (chronic kidney disease) stage 4, GFR 15-29 ml/min;Diabe Result Comment: No r eference range established Performed By: #### P ROCRERAT ####[place] [id number] [place] [address] [facility] Protein (U) [Mass/Vol] 32 mg/dL High 0-9 [facility] Comment on above: Order Comment: Reaso n for Exam CKD (chronic kidney disease) stage 4, GFR 15-29 ml/min;Diabe Performed By: #### P ROCRERAT ####[address] [address] [facility] Urine Protein/Creatinine Ratio 833 mg/g{Cre} High 0-200 [facility] Comment on above: Order Comment: Reaso n for Exam CKD (chronic kidney disease) stage 4, GFR 15-29 ml/min;Diabe Result Comment: PERF ORMED BY:[place] [address] [place], [place] [phone] MEDICAL DIRECTORISRAEL CHAN M.D. Performed By: #### P ROCRERAT ####[place] [id number] [place] [address] [facility] Protein [Mass/volume] in Uri neOrdered By: Tristan Wallis on 02-21-2022 Protein (U) [Mass/Vol] 32 mg/dL 0-9 [facility] RBC Auto (Bld) [#/Vol]Ordere d By: Tristan Bimal on 02-21-2022 RBC (Bld) [#/Vol] 4.02 10*6/uL 3.90-5.60 [facility] Renal Function Panelon 02-21 Albumin [Mass/Vol] 2.8 g/dL Low 3.2-5.5 [facility] Comment on above: Order Comment: Reaso n for Exam CKD (chronic kidney disease) stage 4, GFR 15-29 ml/min;Diabe Performed By: #### P TH, [id number], MARCELO, FE and TIBC, URIC, MG, RENAL ####[address] [address] [facility] Calcium [Mass/Vol] 8.5 mg/dL Normal 8.2-10.2 [facility] Comment on above: Order Comment: Reaso n for Exam CKD (chronic kidney disease) stage 4, GFR 15-29 ml/min;Diabe Performed By: #### P TH, [id number], MARCELO, FE and TIBC, URIC, MG, RENAL ####[place] [id number] [place] [address] [place] Chloride [Moles/Vol] 103 mmol/L Normal 95-114 [facility] Comment on above: Order Comment: Reaso n for Exam CKD (chronic kidney disease) stage 4, GFR 15-29 ml/min;Diabe Performed By: #### P TH, [id number], MARCELO, FE and TIBC, URIC, MG, RENAL ####[place] [id number] [place] [id number] [facility] CO2 [Moles/Vol] 23.1 mmol/L Normal 22.0-30.0 [facility] Comment on above: Order Comment: Reaso n for Exam CKD (chronic kidney disease) stage 4, GFR 15-29 ml/min;Diabe Performed By: #### P TH, [id number], MARCELO, FE and TIBC, URIC, MG, RENAL ####[place] [id number] [facility] Creatinine [Mass/Vol] 3.73 mg/dL High 0.64-1.27 [facility] Comment on above: Order Comment: Reaso n for Exam CKD (chronic kidney disease) stage 4, GFR 15-29 ml/min;Diabe Performed By: #### P TH, [id number], MARCELO, FE and TIBC, URIC, MG, RENAL ####[address] Estimated GFR ( Zakiya 20 [facility] Comment on above: Order Comment: Reaso n for Exam CKD (chronic kidney disease) stage 4, GFR 15-29 ml/min;Diabe Result Comment: GFR estimated reference range: According to KDOQI guidelines, <60 ml/min/1.73m2 is sufficient to diagnose a patient with chronic kidney disease. Performed By: #### P TH, [id number], MARCELO, FE and TIBC, URIC, MG, RENAL ####[address] Estimated GFR (Non- Am 17 [facility] Comment on above: Order Comment: Reaso n for Exam CKD (chronic kidney disease) stage 4, GFR 15-29 ml/min;Diabe Performed By: #### P TH, [id number], MARCELO, FE and TIBC, URIC, MG, RENAL ####[place] [id number] [facility] Glucose [Mass/Vol] 99 mg/dL Normal 70-100 [facility] Comment on above: Order Comment: Reaso n for Exam CKD (chronic kidney disease) stage 4, GFR 15-29 ml/min;Diabe Result Comment: [place] Glucose Reference Range is dependent on time and content of last meal. Glucose of more than 200 mg/dL in a nonstressed, ambulatory subject supports the diagnosis of Diabetes Mellitus. ADA recommended reference range Performed By: #### P TH, [id number], MARCELO, FE and TIBC, URIC, MG, RENAL ####[place] [id number] [place] [id number] [facility] Phosphate [Mass/Vol] 4.3 mg/dL Normal 2.5-4.6 [facility] Comment on above: Order Comment: Reaso n for Exam CKD (chronic kidney disease) stage 4, GFR 15-29 ml/min;Diabe Performed By: #### P TH, [id number], MARCELO, FE and TIBC, URIC, MG, RENAL ####[address] [address] [facility] Potassium [Moles/Vol] 5.2 mmol/L High 3.5-5.1 [facility] Comment on above: Order Comment: Reaso n for Exam CKD (chronic kidney disease) stage 4, GFR 15-29 ml/min;Diabe Performed By: #### P TH, [id number], MARCELO, FE and TIBC, URIC, MG, RENAL ####[place] [id number] [place] [address] [facility] Sodium [Moles/Vol] 134 mmol/L Low 136-146 [facility] Comment on above: Order Comment: Reaso n for Exam CKD (chronic kidney disease) stage 4, GFR 15-29 ml/min;Diabe Performed By: #### P TH, [id number], MARCELO, FE and TIBC, URIC, MG, RENAL ####[place] [id number] [place] [address] [facility] Urea nitrogen [Mass/Vol] 57 mg/dL High 9-23 [facility] Comment on above: Order Comment: Reaso n for Exam CKD (chronic kidney disease) stage 4, GFR 15-29 ml/min;Diabe Performed By: #### P TH, [id number], MARCELO, FE and TIBC, URIC, MG, RENAL ####[facility] [id number] [place] [id number] [facility] Serum or plasma calcium leobardo urement (mass/volume)Ordered By: Tristan Wallis on 02-21-2022 Calcium [Mass/Vol] 8.5 mg/dL 8.2-10.2 [facility] Serum or plasma chloride mary surement (moles/volume)Ordered By: Tristan Wallis on 02-21-2022 Chloride [Moles/Vol] 103 mmol/L 95-114 [facility] Serum or plasma glucose leobardo urement (mass/volume)Ordered By: Tristan Wallis on 02-21-2022 Glucose [Mass/Vol] 99 mg/dL 70-100 [facility] Comment on above: ADA recommended refe rence range Random Glucose Reference Range is dependent on time and content of last meal. Glucose of more than 200 mg/dL in a nonstressed, ambulatory subject supports the diagnosis of Diabetes Mellitus. Serum or plasma intact parat hyroid hormone measurement (mass/volume)Ordered By: Tristan Wallis on 02-21-2022 Parathyrin.intact [Mass/Vol] 286.1 pg/mL 12 [facility] Serum or plasma potassium me asurement (moles/volume)Ordered By: Tristan Wallis on 02-21-2022 Potassium [Moles/Vol] 5.2 mmol/L 3.5-5.1 [facility] Serum or plasma sodium measu rement (moles/volume)Ordered By: Tristan Wallis on 02-21-2022 Sodium [Moles/Vol] 134 mmol/L 136-146 [facility] Serum or plasma total carbon dioxide measurement (moles/volume)Ordered By: Tristan Wallis on 02-21-2022 CO2 [Moles/Vol] 23.1 mmol/L 22.0-30.0 [facility] Serum or plasma urea nitroge n measurement (mass/volume)Ordered By: Tristan Wallis on 02-21-2022 Urea nitrogen [Mass/Vol] 57 mg/dL 9-23 [facility] Serum or plasma uric acid me asurement (mass/volume)Ordered By: Tristan Wallis on 02-21-2022 Urate [Mass/Vol] 10.3 mg/dL 2.6-7.2 [facility] Squamous epithelial cells de tection in urine sediment by light microscopyOrdered By: Tristan Wallis on 02-21-2022 Epithelial cells.squamous LM Ql (Urine sed) None seen [HPF] 0-2 [facility] Uric Acidon 02-21-2022 Urate [Mass/Vol] 10.3 mg/dL High 2.6-7.2 [facility] Comment on above: Order Comment: Reaso n for Exam CKD (chronic kidney disease) stage 4, GFR 15-29 ml/min;Diabe Performed By: #### P TH, [id number], MARCELO, FE and TIBC, URIC, MG, RENAL ####[facility] [id number] Urine appearanceOrdered By: Tristan Wallis on 02-21-2022 Appearance (U) Clear Clear [facility] Urine bacteria detection by automated methodOrdered By: Tristan Wallis on 02-21-2022 Bacteria Auto Ql (U) None seen None Seen [facility] Urine colorOrdered By: Tristan Wallis on 02-21-2022 Color (U) Yellow Yellow [facility] Urine glucose measurement by automated test strip (mass/volume)Ordered By: Tristan Wallis on 02-21-2022 Glucose Auto test strip (U) [Mass/Vol] Normal mg/dL Normal [facility] Urine hemoglobin detection b y automated test stripOrdered By: Tristan Wallis on 02-21-2022 Hemoglobin Auto test strip Ql (U) Trace Negative [facility] Urine leukocyte esterase det ection by automated test stripOrdered By: Tristan Wallis on 02-21-2022 Leukocyte esterase Auto test strip Ql (U) Negative Negative [facility] Urine nitrite detection by a utomated test stripOrdered By: Tristan Wallis on 02-21-2022 Nitrite Auto test strip Ql (U) Negative Negative [facility] Urine protein/creatinine rat ioOrdered By: Tristan Wallis on 02-21-2022 Protein/Creatinine (U) [Ratio] 833 mg/g{Cre} 0-200 [facility] Urobilinogen Auto test strip (U) [Mass/Vol]Ordered By: Tristan Wallis on 02-21-2022 Urobilinogen (U) [Mass/Vol] Normal mg/dL Normal [facility] Vitamin D 25 Hydroxy Totalon 02-21-2022 Vitamin D 25 Hydroxy Total 25.9 ng/mL Low 30-100 [facility] Comment on above: Order Comment: Reaso n for Exam CKD (chronic kidney disease) stage 4, GFR 15-29 ml/min;Diabe Result Comment: ANN MIN D STATUS 25([place])VITAMIN D RANGE (ng/mL) Deficient <20 Insufficient 20 to <30 Sufficient 30 to 100 Reference: Jah MF,Tereza WEEMS, Adonay REY, et al. Evaluation,treatment, and prevention of vitamin D deficiency; an Endocrine Society clinical practice guideline. JCEM. 2010; 96(7):1911-30. Performed By: #### P TH, [id number], MARCELO, FE and TIBC, URIC, MG, RENAL ####[facility] [id number] [place] [id number] [facility] WBC Auto (Bld) [#/Vol]Ordere d By: Tristan Wallis on 02-21-2022 WBC (Bld) [#/Vol] 6.3 10*3/uL 4.1-10.5 [facility] pH Auto test strip (U)Ordere d By: Tristan Wallis on 02-21-2022 pH (U) 1.010 [pH] 1.001-1.030 [facility] pH (U) 6.0 [pH] 5.0-9.0 [facility] CBC AUTO DIFFon 02-09-2022 BASO # 0.1 103/ul Normal 0.0-0.1 [facility] Comment on above: Performed By: #### C BC #### [facility] [place] [facility] [address] [place], [place] [address] Dr. Kerline Bush Basophils/100 WBC (Bld) 1.3 % Normal 0.2-2.0 [facility] Comment on above: Performed By: #### C BC #### [facility] [place] [facility] [address] [place] [address] Dr. Kerline Bush EO # 0.3 103/ul Normal 0.0-0.7 [facility] [place] [facility] Comment on above: Performed By: #### C BC #### [facility] [place] [facility] [address] [place] [address] Dr. Kerline Bush Eosinophils/100 WBC (Bld) 4.9 % Normal 0.9-7.0 [facility] Comment on above: Performed By: #### C BC #### [facility] [place] [facility] [address] [place] [address] Dr. Kerline Bush Erythrocyte distribution width (RBC) [Ratio] 23.6 % Critically high 11.0-15.0 [facility] Comment on above: Performed By: #### C BC #### [facility] [place] [facility] [address] [place] [address] Dr. Kerline Bush Hematocrit (Bld) [Volume fraction] 33.2 % Critically low 42.0-54.0 [facility] Comment on above: Performed By: #### C BC #### [facility] [place] [facility] [address] [place] [address] Dr. Kerline Bush Hemoglobin (Bld) [Mass/Vol] 10.8 g/dL Critically low 14.0-18.0 [facility] Comment on above: Performed By: #### C BC #### [facility] [place] [facility] [address] [place] [address] Dr. Kerline Bush IG # 0.01 10e3/ul Normal 0.00-0.03 [facility] [place] [facility] Comment on above: Performed By: #### C BC #### [facility] [place] [facility] [address] [place] [address] Dr. Kerline Bush IG % 0.2 % Normal 0.0-0.5 [facility] [place] [facility] Comment on above: Performed By: #### C BC #### [facility] [place] [facility] [address] [place] [address] Dr. Kerline Bush LYMPH # 0.8 103/ul Critically low 1.2-3.8 [facility] Comment on above: Performed By: #### C BC #### [facility] [place] [facility] [address] [place] [address] [address] Kerline Bush Lymphocytes/100 WBC (Bld) 13.0 % Critically low 20.5-60.0 [facility] Comment on above: Performed By: #### C BC #### [facility] [address] [address] [address] Kerline Bush MANUAL DIFF REQ NO Normal [facility] Comment on above: Performed By: #### C BC #### [facility] [address] [address] [address] Kerline Bush MCH (RBC) [Entitic mass] 25.4 pg Critically low 25.9-34.0 [facility] Comment on above: Performed By: #### C BC #### [facility] [address] [place] [address] Dr. Kerline Bush MCHC (RBC) [Mass/Vol] 32.5 g/dL Normal 29.9-35.2 [facility] Comment on above: Performed By: #### C BC #### [facility] [address] [place] [address] Dr. Kerline Bush MCV (RBC) [Entitic vol] 77.9 fL Critically low 80.0-94.0 [facility] Comment on above: Performed By: #### C BC #### [facility] [address] [place] [address] Dr. Kerline Bush MONO # 0.7 103/ul Normal 0.3-0.8 [facility] Comment on above: Performed By: #### C BC #### [facility] [address] [place] [address] Dr. Kerline Bush Monocytes/100 WBC (Bld) 11.0 % Normal 1.7-12.0 [facility] Comment on above: Performed By: #### C BC #### [facility] [address] [place] [address] Dr. Kerline Bush NEUT # 4.4 103/ul Normal 1.4-6.5 [facility] Comment on above: Performed By: #### C BC #### [facility] [address] [address] [address] Kerline Bush Neutrophils/100 WBC (Bld) 69.6 % Normal 43.0-75.0 [facility] Comment on above: Performed By: #### C BC #### [facility] [address] [address] [address] Kerline Bush Platelet mean volume (Bld) [Entitic vol] 8.5 fL Critically low 9.5-13.5 [facility] Comment on above: Performed By: #### C BC #### [facility] [address] [address] [address] Kerline Bush PLT 285 103/ul Normal 150-450 [facility] Comment on above: Performed By: #### C BC #### [facility] [address] [address] [address] Kerline Bush RBC 4.26 106/ul Critically low 4.70-6.[address] [facility] Comment on above: Performed By: #### C BC #### [facility] [address] [address] [address] Kerline Bush WBC 6.3 103/ul Normal 4.0-11.0 [facility] Comment on above: Performed By: #### C BC #### [facility] [address] [address] [address] ABD/PELVIS WO CONon 02-09 CT ABD/PELVIS WO CON EXAMINATION: CT ABD/PELVIS WO CON, 02/09/2022 2:31 AM EDT HISTORY: GENERALIZED ABDOMINAL PAIN COMPARISON: CT abdomen and pelvis examination dated 09/02/2021. CT abdomen and pelvis examination dated 01/26/2021. TECHNIQUE: CT scan of the abdomen and pelvis was performed without IV contrast. CT dose reduction technique was used, including Automated Exposure Control. FINDINGS: There is a small right pleural effusion with likely bibasilar atelectasis. Partially imaged is a small pericardial effusion. Abdomen: Please note that the sensitivity for detection of focal lesions or vascular disease is markedly reduced without intravenous contrast. The liver is unremarkable. There is no intra or extrahepatic biliary duct dilatation. The gallbladder is surgically absent. The patient is status post splenectomy. There is a right adrenal mass measuring up to 3.0 x 2.0 cm, unchanged compared to prior examination when measured in a similar fashion (series 3, image 13). There is a stable 1.0 cm slightly hyperdense right renal cystic structure (series 3, image 28). The pancreas, left adrenal gland, and left kidney are unremarkable. The patient is status post appendectomy. There is no mesenteric or retroperitoneal lymphadenopathy. There are fluid-filled dilated loops of small bowel measuring up to 3.2 cm. No definite transition point is seen. There is generalized body wall edema. An IVC filter is noted. There is small volume abdominal and pelvic ascites. Prominent vessels are seen within the retroperitoneum. Pelvis: The bladder demonstrates wall thickening with perivesicular fat stranding. The rectum is unremarkable. There are prominent and mildly enlarged bilateral iliac and inguinal chain lymph nodes measuring up to 1.1 cm in short axis diameter (series 3, image 104). There is advanced atherosclerotic disease. Bone windows show no aggressive osseous lesions. IMPRESSION: 1. Mildly dilated fluid-filled loops of small bowel which could represent enteritis. No transition point is seen. 2. Generalized body wall edema with a small pericardial effusion, a small right pleural effusion, and small volume abdominal and pelvic ascites. 3. Status post cholecystectomy, appendectomy, and splenectomy. 4. Right adrenal mass, unchanged compared to prior examinations. This could be further evaluated with a nonemergent outpatient adrenal mass CT protocol or contrast-enhanced MRI examination as clinically indicated. 5. Stable slightly hyperdense right renal cystic structure which likely represents a hemorrhagic or proteinaceous cyst. 6. Urinary bladder wall thickening with perivesicular fat stranding. Please correlate with urinalysis for infection. 7. Prominent and mildly enlarged bilateral iliac and inguinal chain lymph nodes which could be reactive though a lymphoproliferative disorder is not excluded. Electronically authenticated by: Ash AVRIZU Date: 2022-02-09 05:10 Normal [facility] ER URINE PROFILEon 2 Bilirubin Ql (U) Negative Normal NEGATIVE [facility] Comment on above: Performed By: #### U MICRO, ERUR #### [facility] [address] [place] [address] Dr. Kerline Bush Clarity (U) CLEAR Normal CLEAR [facility] Comment on above: Performed By: #### U MICRO, ERUR #### [facility] [address] [address] [address] Kerline Bush Color (U) LT. YELLOW Normal YELLOW [facility] Comment on above: Performed By: #### U MICRO, ERUR #### [facility] [address] [address] [address] Kerline Bush ERUMIGUELD A micrscopic examina tion will be performed if indicated. Normal [facility] Comment on above: Performed By: #### U MICRO, ERUR #### [facility] [address] [address] [address] Kerline Bush Glucose Ql (U) Negative Normal NEGATIVE [facility] Comment on above: Performed By: #### U MICRO, ERUR #### [facility] [address] [address] [address] Kerline Bush Hemoglobin Ql (U) SMALL Abnormal NEGATIVE [facility] Comment on above: Performed By: #### U MICRO, ERUR #### [facility] [address] [address] [address] Kerline Bush Ketones Ql (U) Negative Normal NEGATIVE [facility] Comment on above: Performed By: #### U MICRO, ERUR #### [facility] [address] [address] [address] Kerline Bush LEUKOCYTES Negative Normal NEGATIVE [facility] Comment on above: Performed By: #### U MICRO, ERUR #### [facility] [address] [address] [address] Kerline Bush Nitrite Ql (U) Negative Normal NEGATIVE [facility] Comment on above: Performed By: #### U MICRO, ERUR #### [facility] [address] [address] [address] Kerline Bush pH (U) 6.0 [pH] Normal 5-9 [facility] Comment on above: Performed By: #### U MICRO, ERUR #### [facility] [address] [address] [address] Kerline Bush Protein (U) [Mass/Vol] 100 mg/dL Abnormal NEGATIVE/ TRACE [facility] Comment on above: Performed By: #### U MICRO, ERUR #### [facility] [address] [place] [address] Dr. Kerline Bush SPEC GRAVITY <=1.005 Abnormal 1.005-<=1.0 25 [facility] Comment on above: Performed By: #### U MICRO, ERUR #### [facility] [address] [place] [address] Dr. Kerline Bush UR MICRO IND INDICATED Normal [facility] Comment on above: Performed By: #### U MICRO, ERUR #### [facility] [address] [address] [address] Kerline Bush Urobilinogen Qn (U) 0.2 {Cesar'U}/dL Normal 0.2 - 1. 0 [facility] Comment on above: Performed By: #### U MICRO, ERUR #### [facility] [address] [place] [address] Dr. Kerline Bush PROF 14(COMP METB)on 022 Albumin [Mass/Vol] 3.1 g/dL Critically low 3.4-5.0 [facility] Comment on above: Performed By: #### H STROPN, BNP, BMP #### [facility] [address] [place] [address] Dr. Kerline Bush Albumin/Globulin [Mass ratio] 0.5 {ratio} Normal [facility] Comment on above: Performed By: #### H STROPN, BNP, BMP #### [facility] [address] [place] [address] Dr. Kerline Bush ALP [Catalytic activity/Vol] 139 U/L Critically high 46-116 [facility] Comment on above: Performed By: #### H STROPN, BNP, BMP #### [facility] [address] [place] [address] Dr. Kerline Bush ALT [Catalytic activity/Vol] 7 U/L Critically low 16-63 [facility] Comment on above: Performed By: #### H STROPN, BNP, BMP #### [facility] [address] [place] [address] Dr. Kerline Bush Anion gap [Moles/Vol] 14.7 mmol/L Normal [facility] Comment on above: Performed By: #### H STROPN, BNP, BMP #### [facility] [address] [address] [address] Kerline Bush AST [Catalytic activity/Vol] 19 U/L Normal 15-37 [facility] Comment on above: Performed By: #### H STROPN, BNP, BMP #### [facility] [address] [address] [address] Kerline Bush Bilirubin [Mass/Vol] 2.0 mg/dL Critically high 0.2-1.0 [facility] Comment on above: Performed By: #### H STROPN, BNP, BMP #### [facility] [address] [place] [address] Dr. Kerline Bush Calcium [Mass/Vol] 8.7 mg/dL Normal 8.5-10.1 [facility] Comment on above: Performed By: #### H STROPN, BNP, BMP #### [facility] [address] [place] [address] Dr. Kerline Bush Chloride [Moles/Vol] 102 mmol/L Normal 98-107 [facility] Comment on above: Performed By: #### H STROPN, BNP, BMP #### [facility] [address] [place] [address] Dr. Kerline Bush CO2 [Moles/Vol] 21.1 mmol/L Normal 21.0-32.0 [facility] Comment on above: Performed By: #### H STROPN, BNP, BMP #### [facility] [address] [place] [address] Dr. Kerline Bush Creatinine [Mass/Vol] 3.24 mg/dL Critically high 0.70-1.30 [facility] Comment on above: Performed By: #### H STROPN, BNP, BMP #### [facility] [address] [address] [address] Kerline Bush EGFR-AF ROMANIAN 24 mL/min/1.73m2 Critically low >=60 [facility] Comment on above: Performed By: #### H STROPN, BNP, BMP #### [facility] [address] [address] [address] Kerline Bush EGFR-NON AF ROMANIAN 20 mL/min/1.73m2 Critically low >=60 [facility] Comment on above: Performed By: #### H STROPN, BNP, BMP #### [facility] [address] [place] [address] Dr. Kerline Bush Globulin (S) [Mass/Vol] 6.2 g/dL Normal [facility] Comment on above: Performed By: #### H STROPN, BNP, BMP #### [facility] [address] [place] [address] Dr. Kerline Bush Glucose [Mass/Vol] 100 mg/dL Normal 74-106 [facility] Comment on above: Performed By: #### H STROPN, BNP, BMP #### [facility] [address] [place] [address] Dr. Kerline Bush Potassium [Moles/Vol] 4.8 mmol/L Normal 3.5-5.1 [facility] Comment on above: Performed By: #### H STROPN, BNP, BMP #### [facility] [address] [place] [address] Dr. Kerline Bush Protein [Mass/Vol] 9.3 g/dL Critically high 6.4-8.2 [facility] Comment on above: Performed By: #### H STROPN, BNP, BMP #### [facility] [address] [place] [address] Dr. Kerline Bush Sodium [Moles/Vol] 133 mmol/L Critically low 136-145 [facility] Comment on above: Performed By: #### H STROPN, BNP, BMP #### [facility] [address] [place] [address] Dr. Kerline Bush Urea nitrogen [Mass/Vol] 45.0 mg/dL Critically high 7.0-18.0 [facility] Comment on above: Performed By: #### H STROPN, BNP, BMP #### [facility] [address] [place] [address] Dr. Kerline Bush Urea nitrogen/Creatinine [Mass ratio] 13.9 mg/mg Normal [facility] Comment on above: Performed By: #### H STROPN, BNP, BMP #### [facility] [address] [address] [address] Kerline Bush URINE MICROSCOPIC ONLYon BACTERIA NONE SEEN Normal NONE SEEN [facility] Comment on above: Performed By: #### U MICRO, ERUR #### [facility] [address] [address] [address] Kerline Bush Bacteria identified Cx Nom (U) NOT INDICATED Normal [facility] Comment on above: Performed By: #### U MICRO, ERUR #### [facility] [address] [place] [address] Dr. Kerline Bush CAST NONE SEEN Normal NONE SEEN [facility] Comment on above: Performed By: #### U MICRO, ERUR #### [facility] [address] [place] [address] Dr. Kerline Bush Crystals LM Nom (Urine sed) NONE SEEN Normal NONE SEEN [facility] Comment on above: Performed By: #### U MICRO, ERUR #### [facility] [address] [place] [address] Dr. Kerline Bush Epithelial cells LM Ql (Urine sed) RARE Normal NONE SEEN /RARE [facility] Comment on above: Performed By: #### U MICRO, ERUR #### [facility] [address] [place] [address] Dr. Kerline Bush MUCOUS NONE SEEN Normal NONE SEEN [facility] Comment on above: Performed By: #### U MICRO, ERUR #### [facility] [address] [place] [address] Dr. Kerline Bush RBC 2-5 Abnormal 0-2 [facility] Comment on above: Performed By: #### U MICRO, ERUR #### [facility] [address] [place] [address] Dr. Kerline Bush WBC 0-2 Abnormal NONE SEEN [facility] Comment on above: Performed By: #### U MICRO, ERUR #### [facility] [address] [place] [address] Dr. Kerline Bush XR CHEST 1 Von 02-09-2022 XR CHEST 1 V EXAM: XR CHEST 1 V HISTORY: SHORTNESS OF BREATH COMPARISON: Chest x-ray 11/15/2021 TECHNIQUE: Single frontal view chest x-ray FINDINGS: Marked enlargement of cardiac silhouette. Finding reflecting cardiomegaly. Correlate clinically for pericardial effusion. Bilateral pulmonary vascular congestion. Small right pleural effusion. Mild bilateral interstitial lung edema with bibasilar linear atelectasis. No pneumothorax or acute bony abnormality. IMPRESSION: Cardiomegaly with bilateral pulmonary vascular congestion. Enlarged cardiac silhouette raising the question of pericardial effusion. Small right pleural effusion. Mild bilateral interstitial lung edema with bibasilar linear atelectasis. Electronically authenticated by: AILYN BLUE Date: 2022-02-09 02:55 Normal [facility] CHEMISTRYOrdered By: Alycia Mack on 01-31-2022 INR POC FT 3.3 [facility] PT POC FT 39.9 s High 10.8 - 13.6 second(s) [facility] CBC W MANUAL DIFFon 01-26-20 22 ATYPICAL LYMPH # Normal [facility] Comment on above: Performed By: #### H STROPN, BNP, BMP #### [facility] [address] [address] [address] Kerline Bush ATYPICAL LYMPH % Normal [facility] Comment on above: Performed By: #### H STROPN, BNP, BMP #### [facility] [address] [address] [address] Kerline Bush BAND # Normal 0.0-0.3 [facility] Comment on above: Performed By: #### H STROPN, BNP, BMP #### [facility] [address] [address] [address] Kerline Bush BAND % Normal 0-5 [facility] Comment on above: Performed By: #### H STROPN, BNP, BMP #### [facility] [address] [address] [address] Kerline Bush BASOM # 0.00 103/ul Normal 0.00-0.10 [facility] Comment on above: Performed By: #### H STROPN, BNP, BMP #### [facility] [address] [address] [address] Kerline Bush BASOM % 0.0 % Critically low 0.2-2.0 [facility] Comment on above: Performed By: #### H STROPN, BNP, BMP #### [facility] [address] [place] [address] Dr. Kerline Bush BLAST # Normal [facility] Comment on above: Performed By: #### H STROPN, BNP, BMP #### [facility] [address] [place] [address] Dr. Kerline Bush BLAST % Normal [facility] Comment on above: Performed By: #### H STROPN, BNP, BMP #### [facility] [address] [place] [address] Dr. Kerline Bush CORRECTED WBC Normal 4.0-11.0 [facility] Comment on above: Performed By: #### H STROPN, BNP, BMP #### [facility] [address] [place] [address] Dr. Kerline Bush EOS # 0.34 103/ul Normal 0.00-0.70 [facility] Comment on above: Performed By: #### H STROPN, BNP, BMP #### [facility] [address] [place] [address] Dr. Kerline Bush EOS% 5.0 % Normal 0.9-7.0 [facility] Comment on above: Performed By: #### H STROPN, BNP, BMP #### [facility] [address] [place] [address] Dr. Kerline Bush HCT 30.5 % Critically low 42.0-54.0 [facility] Comment on above: Performed By: #### H STROPN, BNP, BMP #### [facility] [address] [place] [address] Dr. Kerline Bush HGB 9.8 g/dl Critically low 14.0-18.0 [facility] Comment on above: Performed By: #### H STROPN, BNP, BMP #### [facility] [address] [place], [place] [address] Dr. Kerline Bush HYPOCHROMASIA SLIGHT Normal [facility] Comment on above: Performed By: #### H STROPN, BNP, BMP #### [facility] [address] [address] [address] Kerline Bush LYMPHM # 0.68 103/ul Critically low 1.20-3.80 [facility] Comment on above: Performed By: #### H STROPN, BNP, BMP #### [facility] [address] [address] [address] Kerline Bush LYMPHM% 10.0 % Critically low 20.5-60.0 [facility] Comment on above: Performed By: #### H STROPN, BNP, BMP #### [facility] [address] [place] [address] Dr. Kerline Bush MCH 25.1 pg Critically low 25.9-34.0 [facility] Comment on above: Performed By: #### H STROPN, BNP, BMP #### [facility] [address] [place] [address] Dr. Kerline Bush MCHC 32.1 g/dl Normal 29.9-35.2 [facility] Comment on above: Performed By: #### H STROPN, BNP, BMP #### [facility] [address] [place] [address] Dr. Kerline Bush MCV 78.0 fL Critically low 80.0-94.0 [facility] Comment on above: Performed By: #### H STROPN, BNP, BMP #### [facility] [address] [place] [address] Dr. Kerline Bush METAMYELOCYTE # Normal [facility] Comment on above: Performed By: #### H STROPN, BNP, BMP #### [facility] [address] [place] [address] Dr. Kerline Bush METAMYELOCYTE % Normal [facility] Comment on above: Performed By: #### H STROPN, BNP, BMP #### [facility] [address] [place] [address] Dr. Kerline Bush MICROCYTOSIS SLIGHT Normal [facility] Comment on above: Performed By: #### H STROPN, BNP, BMP #### [facility] [address] [address] [address] Kerline Bush MONOM# 0.54 103/ul Normal 0.30-0.80 [facility] Comment on above: Performed By: #### H STROPN, BNP, BMP #### [facility] [address] [address] [address] Kerline Bush MONOM% 8.0 % Normal 1.7-12.0 [facility] Comment on above: Performed By: #### H STROPN, BNP, BMP #### [facility] [address] [address] [address] Kerline Bush MPV 9.0 fL Critically low 9.5-13.5 [facility] Comment on above: Performed By: #### H STROPN, BNP, BMP #### [facility] [address] [place] [address] Dr. Kerline Bush MYELOCYTE # Normal [facility] Comment on above: Performed By: #### H STROPN, BNP, BMP #### [facility] [address] [address] [address] Kerline Bush MYELOCYTE % Normal [facility] Comment on above: Performed By: #### H STROPN, BNP, BMP #### [facility] [address] [place] [address] Dr. Kerline Bush NRBC Normal [facility] Comment on above: Performed By: #### H STROPN, BNP, BMP #### [facility] [address] [address] [address] Kerline Bush PLT 253 103/ul Normal 150-450 [facility] Comment on above: Performed By: #### H STROPN, BNP, BMP #### [facility] [address] [place] [address] Dr. Kerline Bush POIKILOCYTOSIS SLIGHT Normal [facility] Comment on above: Performed By: #### H STROPN, BNP, BMP #### [facility] [address] [address] [address] Kerline Bush RDW 26.5 % Critically high 11.0-15.0 [facility] Comment on above: Performed By: #### H STROPN, BNP, BMP #### [facility] [address] [address] [address] Kerline Bush SEG # 5.24 103/ul Normal 1.40-6.50 [facility] Comment on above: Performed By: #### H STROPN, BNP, BMP #### [facility] [address] [address] [address] Kerline Bush SEG % 77.0 % Critically high 43.0-75.[address] [facility] Comment on above: Performed By: #### H STROPN, BNP, BMP #### [facility] [address] [place] [address] Dr. Kerline Bush TARGET CELLS SLIGHT Normal [facility] Comment on above: Performed By: #### H STROPN, BNP, BMP #### [facility] [address] [address] [address] Kerline Bush WBC 6.8 103/ul Normal 4.0-11.0 [facility] Comment on above: Performed By: #### H STROPN, BNP, BMP #### [facility] [address] [address] [address] Kerline Bush CRPon 01-25-2022 CRP 1.2 mg/dL Critically high <=1.0 [facility] Comment on above: Performed By: #### H STROPN, BNP, BMP #### [facility] [address] [address] [address] Kerline Bush GLYCOHEMOGLOBIN A1Con 2021 ADA RECOMMENDATION SEE BELOW Normal [facility] Comment on above: Result Comment: ADA RECOMMENDED LIMIT 4.0 - 6.0 ADA THERAPEUTIC TARGET < 7.0 ACTION SUGGESTED > 7.0 Performed By: #### H STROPN, BNP, BMP #### [facility] [address] [address] [address] Kerline Bush Glucose [Mass/Vol] 131 mg/dL Normal [facility] Comment on above: Performed By: #### H STROPN, BNP, BMP #### [facility] [address] [address] [address] Kerline Bush HbA1c (Bld) [Mass fraction] 6.2 % Normal 4.5-6.2 [facility] [facility] Comment on above: Performed By: #### H STROPN, BNP, BMP #### [facility] [id number] Kerline Bush Ophthalmic Eye Examon 2021 Ophthalmic Eye Exam DOCUMENT REVIEWED BY : Alla Kumar OD DOCUMENT SIGNED ELECTRONICALLY BY Alla Kumar OD ON 01/20/2022 11:32:02 AM [address] [id number] [id number] THIS DOCUMENT WAS CREATED ON: 01/20/2022 11:31:55 AM BY: Alla Kumar OD Exam Date: Thursday, January 20, 2022 PATIENT NAME: HIEN JOHNSON DATE: 1960 AGE: 61 GENDER: Male RACE: History Chief Complaint/Reason For Visit: 61 yo male here for I/R training for scleral lenses HISTORY OF PRESENT ILLNESS: HPI was performed by Dr. Alla Kumar OD and scribed by Smiley Kumar OD FAMILY HISTORY: Family History Last Reviewed on:11/30/2021 FATHER: Family history of cataracts, Family history of leukemia MOTHER: Family history of diabetes mellitus, Family history of hypertension Mother,Father:Family history of Sister,Brother:Family history of asthma CURRENT MEDICATIONS: Atorvastatin Calcium 20 MG Oral Tablet - #90 Tablet, TAKE 1 TABLET AT BEDTIME.[Reported] , Evaluate: 22-Sep-2022 Bumetanide 2 MG Oral Tablet - Tablet, TAKE 1 TABLET TWICE DAILY.[Reported] , Evaluate Carvedilol 12.5 MG Oral Tablet - #90 Tablet, TAKE 1 TABLET TWICE DAILY.[Reported] , Evaluate: 22-Sep-2022 Colestid 1 GM Oral Tablet - Tablet, Take 4 tablets daily[Reported] , Evaluate Ferrous Gluconate 324 (38 Fe) MG Oral Tablet - #90 Tablet, TAKE 1 TABLET BY MOUTH ONCE DAILY[Reported] hydrALAZINE HCl - 10 MG Oral Tablet - #90 Tablet, TAKE 1 TABLET BY MOUTH THREE TIMES DAILY[Reported] hydrALAZINE HCl - 50 MG Oral Tablet - #270 Tablet, TAKE 1 TABLET 3 TIMES DAILY.[Reported] , Evaluate: 22-Sep-2022 HYDROcodone-Acetaminophen 5-325 MG Oral Tablet - #84 Tablet, TAKE 1 TABLET EVERY 4 TO 6 HOURS NEEDED FOR PAIN., NO REFILLS, Evaluate: 10-May-2021 Isosorbide Dinitrate 20 MG Oral Tablet - Tablet, TAKE 1 TABLET EVERY 8 HOURS DAILY.[Reported] , Evaluate Omeprazole 20 MG Oral Capsule Delayed Release - #360 Capsule Delayed Release, [Reported] Trelegy Ellipta 100-62.5-25 MCG/INH Inhalation Aerosol Powder Breath Activated - 28 Each Pack, Aerosol Powder Breath Activated, As directed.[Reported] , Evaluate Warfarin Sodium 2.5 MG Oral Tablet - Tablet, as directed by pcp Dr. 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 6 Z96.1 Pseudophakia of left eye-Stable 7 E11.3291 Non-proliferative diabetic retinopathy, mild, right eye-Stable Plan pt was unsuccessful with I/R again today, 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 Glucose Glucometer (BldC) [M ass/Vol]Ordered By: Ramona Petty on 01-16-2022 Glucose [Mass/Vol] 83 mg/dL [facility] Comment on above: Random Glucose Refer ence Range is dependent on time and content of last meal. Glucose of more than 200 mg/dL in a nonstressed, ambulatory subject supports the diagnosis of Diabetes Mellitus. Glucose Poct Glucometerson 0 01-16-2022 Glucose [Mass/Vol] 83 mg/dL Normal [facility] Comment on above: Result Comment: [place] om Glucose Reference Range is dependent on time and content of last meal. Glucose of more than 200 mg/dL in a nonstressed, ambulatory subject supports the diagnosis of Diabetes Mellitus.PERFORMED BY:[address] [address] [address] [place], [place] [phone] MEDICAL DIRECTORISRAEL CHAN M.D. Performed By: #### G LULS ####Point of Care testing, Laboratory - CoagulationOrde red By: BETTYE BENTON on 01-16-2022 PT Coag (PPP) [Time] 14.8 s 9.0-12.9 [facility] Partial Thromboplastin Timeo n 01-16-2022 aPTT Coag (Bld) [Time] 37.8 s High 25.1-36.5 [facility] Comment on above: Order Comment: per r n Result Comment: PERF ORMED BY:[address] [address] [address] [place], [place] [phone] MEDICAL DIRECTORISRAEL CHAN M.D. Performed By: #### P TT, PT ####[address] [address] [address] [id number] [facility] Platelet poor plasma interna tional normalized ratio (INR) by coagulation assay (relatOrdered By: BETTYE BENTON on 01-16-2022 INR Coag (PPP) [Relative time] 1.3 {INR} [facility] Comment on above: INR Therapeutic Rang e A) Pre- and Peroperative OAT started two weeks before surgery. NOT HIP SURGERY: 1.5 - 2.5 HIP SURGERY: 2 - 3 B) Primary and secondary prevention of venous THROMBOSIS: 2 - 3 C) Active venous thrombosis, pulmonary embolism and prevention of recurrent venous thrombosis: 2 - 3 D) Prevention of arterial thromboembolism including patients with mechanical heart valves: 3 - 4.5 Prothrombin Time INRon 01-16 INR Coag (PPP) [Relative time] 1.3 {INR} Normal [facility] Comment on above: Order Comment: per r n Result Comment: INR Therapeutic Range A) Pre- and Peroperative OAT started two weeks before surgery. NOT HIP SURGERY: 1.5 - 2.5 HIP SURGERY: 2 - 3 B) Primary and secondary prevention of venous THROMBOSIS: 2 - 3 C) Active venous thrombosis, pulmonary embolism and prevention of recurrent venous thrombosis: 2 - 3 D) Prevention of arterial thromboembolism including patients with mechanical heart valves: 3 - 4.5 Performed By: #### P TT, PT ####[facility] [id number] [id number] [facility] PT Coag (PPP) [Time] 14.8 s High 9.0-12.9 [facility] Comment on above: Order Comment: per r n Performed By: #### P TT, PT ####[id number] [id number] [facility] Activated partial thrombopla stin time (aPTT) in platelet poor plasma by coagulation aOrdered By: Catarino Cao on 01-09-2022 aPTT Coag (PPP) [Time] 62.6 s 25.1-36.5 [facility] Glucose Glucometer (BldC) [M ass/Vol]Ordered By: Ramona Petty on 01-09-2022 Glucose [Mass/Vol] 84 mg/dL [facility] Comment on above: Random Glucose Refer ence Range is dependent on time and content of last meal. Glucose of more than 200 mg/dL in a nonstressed, ambulatory subject supports the diagnosis of Diabetes Mellitus. Glucose Poct Glucometerson 0 01-09-2022 Commemt1 Glu2: Cleaned Meter Normal [facility] Comment on above: Result Comment: PERF ORMED BY:[facility] [place], [place] [phone] MEDICAL DIRECTORISRAEL CHAN M.D. Performed By: #### G LULS ####Point of Care testing, Glucose [Mass/Vol] 84 mg/dL Normal [facility] Comment on above: Result Comment: [place] Glucose Reference Range is dependent on time and content of last meal. Glucose of more than 200 mg/dL in a nonstressed, ambulatory subject supports the diagnosis of Diabetes Mellitus. Performed By: #### G LULS ####Point of Care testing, Laboratory - CoagulationOrde red By: Catarino Cao on 01-09-2022 PT Coag (PPP) [Time] 21.9 s 9.0-12.9 [facility] No Panel InformationOrdered By: Ramona Petty on 01-09-2022 Bedside Glucose Comment Glu2: cleaned meter [facility] Partial Thromboplastin Timeo n 01-09-2022 aPTT Coag (Bld) [Time] 62.6 s High 25.1-36.5 [facility] Comment on above: Result Comment: PERF ORMED BY:[facility] [place], [place] [phone] MEDICAL DIRECTORISRAEL CHAN M.D. Performed By: #### K , PTT, PT ####[facility] [place] [address] [facility] Platelet poor plasma interna tional normalized ratio (INR) by coagulation assay (relatOrdered By: Catarino Cao on 01-09-2022 INR Coag (PPP) [Relative time] 1.9 {INR} [facility] Comment on above: INR Therapeutic Rang e A) Pre- and Peroperative OAT started two weeks before surgery. NOT HIP SURGERY: 1.5 - 2.5 HIP SURGERY: 2 - 3 B) Primary and secondary prevention of venous THROMBOSIS: 2 - 3 C) Active venous thrombosis, pulmonary embolism and prevention of recurrent venous thrombosis: 2 - 3 D) Prevention of arterial thromboembolism including patients with mechanical heart valves: 3 - 4.5 Prothrombin Time INRon 01-09 INR Coag (PPP) [Relative time] 1.9 {INR} Normal [facility] Comment on above: Result Comment: INR Therapeutic Range A) Pre- and Peroperative OAT started two weeks before surgery. NOT HIP SURGERY: 1.5 - 2.5 HIP SURGERY: 2 - 3 B) Primary and secondary prevention of venous THROMBOSIS: 2 - 3 C) Active venous thrombosis, pulmonary embolism and prevention of recurrent venous thrombosis: 2 - 3 D) Prevention of arterial thromboembolism including patients with mechanical heart valves: 3 - 4.5 Performed By: #### K , PTT, PT ####[id number] [place] [address] [facility] PT Coag (PPP) [Time] 21.9 s High 9.0-12.9 [facility] Comment on above: Performed By: #### K , PTT, PT ####[address] [address] [facility] Serum or plasma potassium me asurement (moles/volume)Ordered By: Catarino Cao on 01-09-2022 Potassium [Moles/Vol] 4.6 mmol/L Normal 3.5-5.1 [facility] Comment on above: Order Comment: Hemol yzed-please redraw. Notified Danika in Surg Prep at 0646. MLG Result Comment: PERF ORMED BY:[address] [address] [address] [place], [place] [phone] MEDICAL DIANA CHAN M.D. Performed By: #### K , PTT, PT ####[address] [address] [facility] Basic Metabolic Panelon 12-21 Calcium [Mass/Vol] 8.2 mg/dL Normal 8.2-10.2 [facility] Comment on above: Result Comment: PERF ORMED BY:[address] [address] [place], [place] [phone] MEDICAL DIRECTORISRAEL CHAN M.D. Performed By: #### S CAN CBC, BMP ####[id number] [id number] [facility] Chloride [Moles/Vol] 103 mmol/L Normal 95-114 [facility] Comment on above: Performed By: #### S CAN CBC, BMP ####[id number] [id number] [facility] CO2 [Moles/Vol] 20.0 mmol/L Low 22.0-30.0 [facility] Comment on above: Performed By: #### S CAN CBC, BMP ####[id number] [id number] [facility] Creatinine [Mass/Vol] 3.18 mg/dL High 0.64-1.27 [facility] Comment on above: Performed By: #### S CAN CBC, BMP ####[address] [address] [id number] [facility] Estimated GFR ( Zakiya 24 [facility] Comment on above: Result Comment: GFR estimated reference range: According to KDOQI guidelines, <60 ml/min/1.73m2 is sufficient to diagnose a patient with chronic kidney disease. Performed By: #### S CAN CBC, BMP ####[address] [id number] [facility] Estimated GFR (Non- Am 20 [facility] Comment on above: Performed By: #### S CAN CBC, BMP ####[address] [id number] [facility] Glucose [Mass/Vol] 122 mg/dL High 70-100 [facility] Comment on above: Result Comment: [place] om Glucose Reference Range is dependent on time and content of last meal. Glucose of more than 200 mg/dL in a nonstressed, ambulatory subject supports the diagnosis of Diabetes Mellitus. ADA recommended reference range Performed By: #### S CAN CBC, BMP ####[address] [id number] [facility] Potassium [Moles/Vol] 5.5 mmol/L High 3.5-5.1 [facility] Comment on above: Performed By: #### S CAN CBC, BMP ####[facility] [id number] [id number] [facility] Sodium [Moles/Vol] 136 mmol/L Normal 136-146 [facility] Comment on above: Performed By: #### S CAN CBC, BMP ####[facility] [id number] [id number] [facility] Urea nitrogen [Mass/Vol] 50 mg/dL High 9-23 [facility] Comment on above: Performed By: #### S CAN CBC, BMP ####[facility] [id number] [id number] [facility] Basophils Auto (Bld) [#/Vol] Ordered By: Ramona Petty on 12-30-2021 Basophils (Bld) [#/Vol] 0.1 10*3/uL 0.0-0.2 [facility] Basophils/100 WBC Auto (Bld) Ordered By: Ramona Petty on 12-30-2021 Basophils/100 WBC (Bld) 1.3 % . [facility] Blood anisocytosis detection Ordered By: Ramona Petty on 12-30-2021 Anisocytosis Ql (Bld) Slight [facility] Blood hemoglobin measurement (mass/volume)Ordered By: Ramona Petty on 12-30-2021 Hemoglobin (Bld) [Mass/Vol] 10.0 g/dL 13.0-17.0 [facility] Blood leukocytes automated c ount (number/volume)Ordered By: Ramona Petty on 12-30-2021 WBC (Bld) [#/Vol] 5.9 10*3/uL 4.5-11.0 [facility] Creatinine and Glomerular fi ltration rate.predicted panel (S/P/Bld)Ordered By: Ramona Petty on 12-30-2021 Creatinine [Mass/Vol] 3.18 mg/dL 0.64-1.27 [facility] Eosinophils Auto (Bld) [#/Vo l]Ordered By: Ramona Petty on 12-30-2021 Eosinophils (Bld) [#/Vol] 0.0 10*3/uL 0.0-0.45 [facility] Eosinophils/100 WBC Auto (Bl d)Ordered By: Ramona Petty on 12-30-2021 Eosinophils/100 WBC (Bld) 0.8 % . [facility] Erythrocyte distribution wid th Auto (RBC) [Ratio]Ordered By: Ramona Petty on 12-30-2021 Erythrocyte distribution width (RBC) [Ratio] 30.1 % 12.0-14.8 [facility] Estimated glomerular filtrat ion rate (GFR) non- AmericanOrdered By: Ramona Petty on 12-30-2021 GFR/1.73 sq M.predicted among non-blacks MDRD (S/P/Bld) [Vol rate/Area] 20 mL/Min [facility] Hematocrit Auto (Bld) [Volum e fraction]Ordered By: Ramona Petty on 12-30-2021 Hematocrit (Bld) [Volume fraction] 31.6 % 38.8-50.0 [facility] Hypochromia detectionOrdered By: Ramona Petty on 12-30-2021 Hypochromia Ql (Bld) Slight [facility] - Hematology and Cell countsOrdered By: Ramona Petty on 12-30-2021 Nucleated RBC/100 WBC (Bld) [Ratio] 0.7 % 0-0.5 [facility] Lymphocytes Auto (Bld) [#/Vo l]Ordered By: Ramona Petty on 12-30-2021 Lymphocytes (Bld) [#/Vol] 0.4 10*3/uL 1.00-4.8 [facility] Lymphocytes/100 WBC Auto (Bl d)Ordered By: Ramona Petty on 12-30-2021 Lymphocytes/100 WBC (Bld) 6.1 % . [facility] MCH Auto (RBC) [Entitic mass ]Ordered By: Ramona Petty on 12-30-2021 MCH (RBC) [Entitic mass] 25.0 pg 27.5-35.2 [facility] MCHC Auto (RBC) [Mass/Vol]Or dered By: Ramona Petty on 12-30-2021 MCHC (RBC) [Mass/Vol] 31.6 g/dL 32.5-35.6 [facility] MCV Auto (RBC) [Entitic vol] Ordered By: Ramona Petty on 12-30-2021 MCV (RBC) [Entitic vol] 79.1 fL 83.5-101 [facility] Monocytes Auto (Bld) [#/Vol] Ordered By: Ramona Petty on 12-30-2021 Monocytes (Bld) [#/Vol] 0.7 10*3/uL 0.0-0.8 [facility] Monocytes/100 WBC Auto (Bld) Ordered By: Ramona Petty on 12-30-2021 Monocytes/100 WBC (Bld) 11.7 % . [facility] Neutrophils Auto (Bld) [#/Vo l]Ordered By: Ramona Petty on 12-30-2021 Neutrophils (Bld) [#/Vol] 4.7 10*3/uL 1.8-7.7 [facility] Neutrophils/100 WBC Auto (Bl d)Ordered By: Ramona Petty on 12-30-2021 Neutrophils/100 WBC (Bld) 80.1 % . [facility] No Panel InformationOrdered By: Ramona Petty on 12-30-[address] [facility] Estimated GFR () 24 mL/Min [facility] Comment on above: GFR estimated refere nce range: According to KDOQI guidelines, <60 ml/min/1.73m2 is sufficient to diagnose a patient with chronic kidney disease. Microcytosis Slight [facility] Creatinine Clearance (Chem N/A [facility] Platelet Estimate Normal Normal [facility] Platelet Morphology Comment Normal Normal [facility] Poikilocytosis Moderate [facility] Ovalocyte detectionOrdered B y: Ramona Petty on 12-30-2021 Ovalocytes LM Ql (Bld) Slight [facility] Platelet mean volume Auto (B ld) [Entitic vol]Ordered By: Ramona Petty on 12-30-2021 Platelet mean volume (Bld) [Entitic vol] 8.6 fL 6.6-10.1 [facility] Platelets Auto (Bld) [#/Vol] Ordered By: Ramona Petty on 12-30-2021 Platelets (Bld) [#/Vol] 262 10*3/uL 150-450 [facility] RBC Auto (Bld) [#/Vol]Ordere d By: Ramona Petty on 12-30-2021 RBC (Bld) [#/Vol] 4.00 10*6/uL 3.90-5.60 [facility] RBC morphologyOrdered By: Saniya stonerosalia David on 12-30-2021 RBC morphology finding Nom (Bld) N/A [facility] Scan and CBCon 12-30-2021 Anisocytosis Ql (Bld) Slight Normal [facility] Comment on above: Performed By: #### S CAN CBC, BMP ####[facility] [id number] [place] [address] Basophils (Bld) [#/Vol] 0.1 10*3/uL Normal 0.0-0.2 [facility] Comment on above: Performed By: #### S CAN CBC, BMP ####[address] Basophils/100 WBC (Bld) 1.3 % Normal . [facility] Comment on above: Performed By: #### S CAN CBC, BMP ####[address] Crenated RBC Slight Normal [facility] Comment on above: Performed By: #### S CAN CBC, BMP ####[address] Eosinophils (Bld) [#/Vol] 0.0 10*3/uL Normal 0.0-0.45 [facility] Comment on above: Performed By: #### S CAN CBC, BMP ####[address] Eosinophils/100 WBC (Bld) 0.8 % Normal . [facility] Comment on above: Performed By: #### S CAN CBC, BMP ####[address] Erythrocyte distribution width (RBC) [Ratio] 30.1 % High 12.0-14.8 [facility] Comment on above: Performed By: #### S CAN CBC, BMP ####[address] [address] [id number] [facility] Hematocrit (Bld) [Volume fraction] 31.6 % Low 38.8-50.0 [facility] Comment on above: Performed By: #### S CAN CBC, BMP ####[address] [address] [id number] [facility] Hemoglobin (Bld) [Mass/Vol] 10.0 g/dL Low 13.0-17.0 [facility] Comment on above: Performed By: #### S CAN CBC, BMP ####[address] Hypochromasia Slight Normal [facility] Comment on above: Performed By: #### S CAN CBC, BMP ####[address] Lymphocytes (Bld) [#/Vol] 0.4 10*3/uL Low 1.00-4.8 [facility] Comment on above: Performed By: #### S CAN CBC, BMP ####[address] Lymphocytes/100 WBC (Bld) 6.1 % Normal . [facility] Comment on above: Performed By: #### S CAN CBC, BMP ####[place] [id number] [facility] MCH (RBC) [Entitic mass] 25.0 pg Low 27.5-35.2 [facility] Comment on above: Performed By: #### S CAN CBC, BMP ####[address] [address] [id number] [facility] MCV (RBC) [Entitic vol] 79.1 fL Low 83.5-101 [facility] Comment on above: Performed By: #### S CAN CBC, BMP ####[id number] [facility] Mean Corpuscular HGB Conc 31.6 g/dL Low 32.5-35.6 [facility] Comment on above: Performed By: #### S CAN CBC, BMP ####[address] [address] [facility] Microcytosis Slight Normal [facility] Comment on above: Performed By: #### S CAN CBC, BMP ####[address] [address] [facility] Monocytes (Bld) [#/Vol] 0.7 10*3/uL Normal 0.0-0.8 [facility] Comment on above: Performed By: #### S CAN CBC, BMP ####[place] [id number] [facility] Monocytes/100 WBC (Bld) 11.7 % Normal . [facility] Comment on above: Performed By: #### S CAN CBC, BMP ####[id number] [facility] Neutrophils (Bld) [#/Vol] 4.7 10*3/uL Normal 1.8-7.7 [facility] Comment on above: Performed By: #### S CAN CBC, BMP ####[address] [id number] [facility] Neutrophils/100 WBC (Bld) 80.1 % Normal . [facility] Comment on above: Performed By: #### S CAN CBC, BMP ####[id number] [facility] Nucleated RBC/100 WBC (Bld) [Ratio] 0.7 % High 0-0.5 [facility] Comment on above: Performed By: #### S CAN CBC, BMP ####[address] [address] [facility] Ovalocytes Slight Normal [facility] Comment on above: Performed By: #### S CAN CBC, BMP ####[address] [address] [facility] Platelet Estimate Normal Normal Normal [facility] Comment on above: Performed By: #### S CAN CBC, BMP ####[place] [id number] [facility] Platelet mean volume (Bld) [Entitic vol] 8.6 fL Normal 6.6-10.1 [facility] Comment on above: Performed By: #### S CAN CBC, BMP ####[address] [address] [facility] Platelet Morphology Normal Normal Normal [facility] Comment on above: Result Comment: PERF ORMED BY:[address] [place], [place] [phone] MEDICAL DIANA CHAN M.D. Performed By: #### S CAN CBC, BMP ####[address] [address] [facility] Platelets (Bld) [#/Vol] 262 10*3/uL Normal 150-450 [facility] Comment on above: Performed By: #### S CAN CBC, BMP ####[address] [address] [facility] Poikilocytosis Moderate Normal [facility] Comment on above: Performed By: #### S CAN CBC, BMP ####[address] [address] [facility] RBC (Bld) [#/Vol] 4.00 10*6/uL Normal 3.90-5.60 [facility] Comment on above: Performed By: #### S CAN CBC, BMP ####[address] [address] [facility] Target Cells Moderate Normal [facility] Comment on above: Performed By: #### S CAN CBC, BMP ####[address] [address] [facility] Tear Drop Cells Rare Normal [facility] Comment on above: Performed By: #### S CAN CBC, BMP ####[place] [id number] [facility] WBC (Bld) [#/Vol] 5.9 10*3/uL Normal 4.5-11.0 [facility] Comment on above: Performed By: #### S CAN CBC, BMP ####[place] [id number] [facility] Serum or plasma calcium leobardo urement (mass/volume)Ordered By: Ramona Petty on 12-30-2021 Calcium [Mass/Vol] 8.2 mg/dL 8.2-10.2 [facility] Serum or plasma chloride mary surement (moles/volume)Ordered By: Ramona Petty on 12-30-2021 Chloride [Moles/Vol] 103 mmol/L 95-114 [facility] Serum or plasma glucose leobardo urement (mass/volume)Ordered By: Ramona Petty on 12-30-2021 Glucose [Mass/Vol] 122 mg/dL 70-100 [facility] Comment on above: ADA recommended refe rence range Random Glucose Reference Range is dependent on time and content of last meal. Glucose of more than 200 mg/dL in a nonstressed, ambulatory subject supports the diagnosis of Diabetes Mellitus. Serum or plasma potassium me asurement (moles/volume)Ordered By: Ramona Petty on 12-30-2021 Potassium [Moles/Vol] 5.5 mmol/L 3.5-5.1 [facility] Serum or plasma sodium measu rement (moles/volume)Ordered By: Ramona Petty on 12-30-2021 Sodium [Moles/Vol] 136 mmol/L 136-146 [facility] Serum or plasma total carbon dioxide measurement (moles/volume)Ordered By: Ramona Petty on 12-30-2021 CO2 [Moles/Vol] 20.0 mmol/L 22.0-30.0 [facility] Serum or plasma urea nitroge n measurement (mass/volume)Ordered By: Ramona Petty on 12-30-2021 Urea nitrogen [Mass/Vol] 50 mg/dL 9- [facility] Target cellsOrdered By: Adair Petty on 12-30-2021 Target cells LM Ql (Bld) Moderate [facility] Teardrop cell detectionOrder ed By: Ramona Petty on 12-30-2021 Dacrocytes LM Ql (Bld) Rare [facility] Activated partial thrombopla stin time (aPTT) in platelet poor plasma by coagulation aOrdered By: Cynthia Gibbs on 11-24-2021 aPTT Coag (PPP) [Time] 37.5 s 25.1-36.5 [facility] Albumin [Mass/volume] in Ser um or PlasmaOrdered By: Cynthia Gibbs on 11-24-2021 Albumin [Mass/Vol] 2.8 g/dL 3.2-5.5 [facility] Basophils Auto (Bld) [#/Vol] Ordered By: Cynthia Gibbs on 11-24-2021 Basophils (Bld) [#/Vol] N/A [facility] Basophils/100 WBC Auto (Bld) Ordered By: Cynthia Gibbs on 11-24-2021 Basophils/100 WBC (Bld) N/A [facility] Blood anisocytosis detection Ordered By: Cynthia Gibbs on 11-24-2021 Anisocytosis Ql (Bld) Marked [facility] Blood hemoglobin measurement (mass/volume)Ordered By: Cynthia Gibbs on 11-24-2021 Hemoglobin (Bld) [Mass/Vol] 8.8 g/dL 13.0-17.0 [facility] Blood polychromasia detectio n by light microscopyOrdered By: Cynthia Gibbs on 11-24-2021 Polychromasia LM Ql (Bld) Slight [facility] Comprehensive Metabolic Pane maude 11-24-2021 Albumin [Mass/Vol] 2.8 g/dL Low 3.2-5.5 [facility] Comment on above: Performed By: #### D IFF CBC, CMP, PTT, PT ####[place] [id number] Albumin/Globulin [Mass ratio] 0.5 {ratio} Normal [facility] Comment on above: Performed By: #### D IFF CBC, CMP, PTT, PT ####[facility] [id number] [place] [id number] [facility] ALP [Catalytic activity/Vol] 124 U/L High 32-92 [facility] Comment on above: Performed By: #### D IFF CBC, CMP, PTT, PT ####[facility] [place] [id number] [facility] ALT [Catalytic activity/Vol] 15 U/L Normal 10-60 [facility] Comment on above: Performed By: #### D IFF CBC, CMP, PTT, PT ####[address] [address] [facility] AST [Catalytic activity/Vol] 21 U/L Normal 10-42 [facility] Comment on above: Performed By: #### D IFF CBC, CMP, PTT, PT ####[place] [id number] [facility] Bilirubin [Mass/Vol] 1.0 mg/dL Normal 0.3-1.2 [facility] Comment on above: Performed By: #### D IFF CBC, CMP, PTT, PT ####[place] [id number] [facility] Calcium [Mass/Vol] 7.5 mg/dL Low 8.2-10.2 [facility] Comment on above: Performed By: #### D IFF CBC, CMP, PTT, PT ####[place] [id number] [facility] Chloride [Moles/Vol] 98 mmol/L Normal 95-114 [facility] Comment on above: Performed By: #### D IFF CBC, CMP, PTT, PT ####[place] [id number] [facility] CO2 [Moles/Vol] 24.5 mmol/L Normal 22.0-30.0 [facility] Comment on above: Performed By: #### D IFF CBC, CMP, PTT, PT ####[place] [id number] [facility] Creatinine [Mass/Vol] 4.06 mg/dL High 0.64-1.27 [facility] Comment on above: Performed By: #### D IFF CBC, CMP, PTT, PT ####[place] [id number] [facility] Creatinine Clr Calc Pharmacy 26.[address] [facility] Comment on above: Result Comment: PERF ORMED BY:[address] [place], [place] [phone] MEDICAL DIRECTORISRAEL CHAN M.D. Performed By: #### D IFF CBC, CMP, PTT, PT ####[place] [id number] [place] [id number] [facility] Estimated GFR ( Zakiya 18 [facility] Comment on above: Result Comment: GFR estimated reference range: According to KDOQI guidelines, <60 ml/min/1.73m2 is sufficient to diagnose a patient with chronic kidney disease. Performed By: #### D IFF CBC, CMP, PTT, PT ####[place] [id number] [place] [address] [facility] Estimated GFR (Non- Am 15 [facility] Comment on above: Performed By: #### D IFF CBC, CMP, PTT, PT ####[place] [id number] [place] [id number] [facility] Globulin (S) [Mass/Vol] 6.1 g/dL [facility] Comment on above: Performed By: #### D IFF CBC, CMP, PTT, PT ####[place] [id number] [facility] Glucose [Mass/Vol] 135 mg/dL High 70-100 [facility] Comment on above: Result Comment: [place] Glucose Reference Range is dependent on time and content of last meal. Glucose of more than 200 mg/dL in a nonstressed, ambulatory subject supports the diagnosis of Diabetes Mellitus. ADA recommended reference range Performed By: #### D IFF CBC, CMP, PTT, PT ####[place] [id number] [facility] Potassium [Moles/Vol] 4.2 mmol/L Normal 3.5-5.1 [facility] Comment on above: Performed By: #### D IFF CBC, CMP, PTT, PT ####[place] [id number] [facility] Protein [Mass/Vol] 8.9 g/dL High 6.1-7.9 [facility] Comment on above: Performed By: #### D IFF CBC, CMP, PTT, PT ####[place] [id number] [place] [address] [facility] Sodium [Moles/Vol] 135 mmol/L Low 136-146 [facility] Comment on above: Performed By: #### D IFF CBC, CMP, PTT, PT ####[place] [address] [place] [address] [facility] Urea nitrogen [Mass/Vol] 82 mg/dL High 9-23 [facility] Comment on above: Performed By: #### D IFF CBC, CMP, PTT, PT ####[place] [id number] [place] [address] [facility] Creatinine and Glomerular fi ltration rate.predicted panel (S/P/Bld)Ordered By: Cynthia Gibbs on 11-24-2021 Creatinine [Mass/Vol] 4.06 mg/dL 0.64-1.27 [facility] Diff and CBCon 11-24-2021 Anisocytosis Ql (Bld) Marked Normal [facility] Comment on above: Performed By: #### D IFF CBC, CMP, PTT, PT ####[place] [id number] [facility] Eosinophils/100 WBC (Bld) 2 % Normal 1-3 [facility] Comment on above: Performed By: #### D IFF CBC, CMP, PTT, PT ####[address] [address] [facility] Erythrocyte distribution width (RBC) [Ratio] 23.1 % High 12.0-14.8 [facility] Comment on above: Performed By: #### D IFF CBC, CMP, PTT, PT ####[address] [address] [facility] Hematocrit (Bld) [Volume fraction] 27.3 % Low 38.8-50.0 [facility] Comment on above: Performed By: #### D IFF CBC, CMP, PTT, PT ####[address] [address] [facility] Hemoglobin (Bld) [Mass/Vol] 8.8 g/dL Low 13.0-17.0 [facility] Comment on above: Performed By: #### D IFF CBC, CMP, PTT, PT ####[address] Hypochromasia Moderate Normal [facility] Comment on above: Performed By: #### D IFF CBC, CMP, PTT, PT ####[address] Lymphocytes/100 WBC (Bld) 11 % Low 18-42 [facility] Comment on above: Performed By: #### D IFF CBC, CMP, PTT, PT ####[address] MCH (RBC) [Entitic mass] 24.1 pg Low 27.5-35.2 [facility] Comment on above: Performed By: #### D IFF CBC, CMP, PTT, PT ####[address] MCV (RBC) [Entitic vol] 74.9 fL Low 83.5-101 [facility] Comment on above: Performed By: #### D IFF CBC, CMP, PTT, PT ####[address] Mean Corpuscular HGB Conc 32.1 g/dL Low 32.5-35.6 [facility] Comment on above: Performed By: #### D IFF CBC, CMP, PTT, PT ####[address] Microcytosis Moderate Normal [facility] Comment on above: Performed By: #### D IFF CBC, CMP, PTT, PT ####[address] Monocytes/100 WBC (Bld) 7 % Normal 2-11 [facility] Comment on above: Performed By: #### D IFF CBC, CMP, PTT, PT ####[address] Nucleated RBC/100 WBC (Bld) [Ratio] 6.3 % High 0-0.5 [facility] Comment on above: Performed By: #### D IFF CBC, CMP, PTT, PT ####[place] [id number] [place] [address] [facility] Platelet Estimate Normal Normal Normal [facility] Comment on above: Performed By: #### D IFF CBC, CMP, PTT, PT ####[place] [id number] [place] [address] [facility] Platelet mean volume (Bld) [Entitic vol] 7.0 fL Normal 6.6-10.1 [facility] Comment on above: Performed By: #### D IFF CBC, CMP, PTT, PT ####[address] [address] [facility] Platelet Morphology Normal Normal Normal [facility] Comment on above: Result Comment: PERF ORMED BY:[address] [place], [place] [phone] MEDICAL DIRECTORISRAEL CHAN M.D. Performed By: #### D IFF CBC, CMP, PTT, PT ####[address] [address] [facility] Platelets (Bld) [#/Vol] 353 10*3/uL Normal 150-450 [facility] Comment on above: Performed By: #### D IFF CBC, CMP, PTT, PT ####[address] [address] [facility] Polychromasia Slight Normal [facility] Comment on above: Performed By: #### D IFF CBC, CMP, PTT, PT ####[address] [address] [facility] RBC (Bld) [#/Vol] 3.64 10*6/uL Low 3.90-5.60 [facility] Comment on above: Performed By: #### D IFF CBC, CMP, PTT, PT ####[address] [address] [facility] Schistocytes Slight Normal [facility] Comment on above: Performed By: #### D IFF CBC, CMP, PTT, PT ####[facility] [place] [address] [facility] Segmented neutrophils/100 WBC (Bld) 80 % High 50-70 [facility] Comment on above: Performed By: #### D IFF CBC, CMP, PTT, PT ####[facility] [place] [address] [facility] Target Cells Marked Normal [facility] Comment on above: Performed By: #### D IFF CBC, CMP, PTT, PT ####[facility] [place] [address] [facility] WBC (Bld) [#/Vol] 6.8 10*3/uL Normal 4.1-10.5 [facility] Comment on above: Performed By: #### D IFF CBC, CMP, PTT, PT ####[place] [address] [place] [address] [facility] WBC (Bld) [#/Vol] 7.4 10*3/uL Normal 4.5-11.0 [facility] Comment on above: Performed By: #### D IFF CBC, CMP, PTT, PT ####[place] [id number] [facility] Eosinophils Auto (Bld) [#/Vo l]Ordered By: Cynthia Gibbs on 11-24-2021 Eosinophils (Bld) [#/Vol] N/A [facility] Eosinophils/100 WBC Auto (Bl d)Ordered By: Cynthia Gibbs on 11-24-2021 Eosinophils/100 WBC (Bld) N/A [facility] Erythrocyte distribution wid th Auto (RBC) [Ratio]Ordered By: Cynthia Gibbs on 11-24-2021 Erythrocyte distribution width (RBC) [Ratio] 23.1 % 12.0-14.8 [facility] Estimated glomerular filtrat ion rate (GFR) non- AmericanOrdered By: Cynthia Gibbs on 11-24-2021 GFR/1.73 sq M.predicted among non-blacks MDRD (S/P/Bld) [Vol rate/Area] 15 mL/Min [facility] Globulin Calc (S) [Mass/Vol] Ordered By: Cynthia Gibbs on 11-24-2021 Globulin (S) [Mass/Vol] 6.1 g/dL [facility] Hematocrit Auto (Bld) [Volum e fraction]Ordered By: Cynthia Gibbs on 11-24-2021 Hematocrit (Bld) [Volume fraction] 27.3 % 38.8-50.0 [facility] Hypochromia detectionOrdered By: Cynthia Gibbs on 11-24-2021 Hypochromia Ql (Bld) Moderate [facility] - CoagulationOrde red By: Cynthia Gibbs on 11-24-2021 PT Coag (PPP) [Time] 19.0 s 9.0-12.9 [facility] - Hematology and Cell countsOrdered By: Cynthia Gibbs on 11-24-2021 Nucleated RBC/100 WBC (Bld) [Ratio] 6.3 % 0-0.5 [facility] WBC (Bld) [#/Vol] 7.4 10*3/uL 4.5-11.0 [facility] Lymphocytes Auto (Bld) [#/Vo l]Ordered By: Cynthia Gibbs on 11-24-2021 Lymphocytes (Bld) [#/Vol] N/A [facility] Lymphocytes/100 WBC Auto (Bl d)Ordered By: Cynthia Gibbs on 11-24-2021 Lymphocytes/100 WBC (Bld) N/A [facility] Lymphocytes/100 WBC (Bld) 11 % 18-42 [facility] MCH Auto (RBC) [Entitic mass ]Ordered By: Cynthia Gibbs on 11-24-2021 MCH (RBC) [Entitic mass] 24.1 pg 27.5-35.2 [facility] MCHC Auto (RBC) [Mass/Vol]Or dered By: Cynthia Gibbs on 11-24-2021 MCHC (RBC) [Mass/Vol] 32.1 g/dL 32.5-35.6 [facility] MCV Auto (RBC) [Entitic vol] Ordered By: Cynthia Gibbs on 11-24-2021 MCV (RBC) [Entitic vol] 74.9 fL 83.5-101 [facility] Monocyte %Ordered By: Mihaela mcallister Marianahaley on 11-24-2021 Monocytes/100 WBC (Bld) 2 % 1-3 [facility] Monocytes Auto (Bld) [#/Vol] Ordered By: Cynthia Marianafle on 11-24-2021 Monocytes (Bld) [#/Vol] N/A [facility] Monocytes/100 WBC Auto (Bld) Ordered By: Cynthia Marianaraisae on 11-24-2021 Monocytes/100 WBC (Bld) N/A [facility] Monocytes/100 WBC Manual cnt (Bld)Ordered By: Cynthia Marianaraisae on 11-24-2021 Monocytes/100 WBC (Bld) 7 % 2-11 [facility] Neutrophils Auto (Bld) [#/Vo l]Ordered By: Cynthia Marianafle on 11-24-2021 Neutrophils (Bld) [#/Vol] N/A [facility] Neutrophils/100 WBC Auto (Bl d)Ordered By: Cynthia Marianahaley on 11-24-2021 Neutrophils/100 WBC (Bld) N/A [facility] No Panel InformationOrdered By: Cynthia Marianahaley on 11-24-2021 Estimated GFR () 18 mL/Min [facility] Comment on above: GFR estimated refere nce range: According to KDOQI guidelines, <60 ml/min/1.73m2 is sufficient to diagnose a patient with chronic kidney disease. Microcytosis Moderate [facility] Pharmacy Creatinine Clearance (Chem 26.22 [facility] Platelet Estimate Normal Normal [facility] Platelet Morphology Comment Normal Normal [facility] Schistocytes Slight [facility] Partial Thromboplastin Timeo n 11-24-2021 aPTT Coag (Bld) [Time] 37.5 s High 25.1-36.5 [facility] Comment on above: Result Comment: PERF ORMED BY:[facility] [place], [place] [phone] MEDICAL DIRECTORISRAEL CHAN M.D. Performed By: #### D IFF CBC, CMP, PTT, PT ####[facility] [place] [address] [facility] Platelet mean volume Auto (B ld) [Entitic vol]Ordered By: Cynthia Gibbs on 11-24-2021 Platelet mean volume (Bld) [Entitic vol] 7.0 fL 6.6-10.1 [facility] Platelet poor plasma interna tional normalized ratio (INR) by coagulation assay (relatOrdered By: Cynthia Gibbs on 11-24-2021 INR Coag (PPP) [Relative time] 1.7 {INR} [facility] Comment on above: INR Therapeutic Rang e A) Pre- and Peroperative OAT started two weeks before surgery. NOT HIP SURGERY: 1.5 - 2.5 HIP SURGERY: 2 - 3 B) Primary and secondary prevention of venous THROMBOSIS: 2 - 3 C) Active venous thrombosis, pulmonary embolism and prevention of recurrent venous thrombosis: 2 - 3 D) Prevention of arterial thromboembolism including patients with mechanical heart valves: 3 - 4.5 Platelets Auto (Bld) [#/Vol] Ordered By: Cynthia Gibbs on 11-24-2021 Platelets (Bld) [#/Vol] 353 10*3/uL 150-450 [facility] Protein [Mass/volume] in Ser um or PlasmaOrdered By: Cynthia Gibbs on 11-24-2021 Protein [Mass/Vol] 8.9 g/dL 6.1-7.9 [facility] Prothrombin Time INRon 11-24 INR Coag (PPP) [Relative time] 1.7 {INR} Normal [facility] Comment on above: Result Comment: INR Therapeutic Range A) Pre- and Peroperative OAT started two weeks before surgery. NOT HIP SURGERY: 1.5 - 2.5 HIP SURGERY: 2 - 3 B) Primary and secondary prevention of venous THROMBOSIS: 2 - 3 C) Active venous thrombosis, pulmonary embolism and prevention of recurrent venous thrombosis: 2 - 3 D) Prevention of arterial thromboembolism including patients with mechanical heart valves: 3 - 4.5 Performed By: #### D IFF CBC, CMP, PTT, PT ####[facility] [id number] [place] [address] [facility] PT Coag (PPP) [Time] 19.0 s High 9.0-12.9 [facility] Comment on above: Performed By: #### D IFF CBC, CMP, PTT, PT ####[facility] [id number] [place] [id number] [facility] RBC Auto (Bld) [#/Vol]Ordere d By: Cynthia Gibbs on 11-24-2021 RBC (Bld) [#/Vol] 3.64 10*6/uL 3.90-5.60 [facility] RBC morphologyOrdered By: Elijah Gibbs on 11-24-2021 RBC morphology finding Nom (Bld) N/A [facility] Segmented neutrophils/100 WB C Manual cnt (Bld)Ordered By: Cynthia Gibbs on 11-24-2021 Segmented neutrophils/100 WBC (Bld) 80 % 50-70 [facility] Serum or plasma alanine worley otransferase measurement without P-5'-P (enzymatic activiOrdered By: Cynthia Gibbs on 11-24-2021 ALT No additional P-5'-P [Catalytic activity/Vol] 15 U/L 10-60 [facility] Serum or plasma albumin/glob ulin mass ratioOrdered By: Cynthia Gibbs on 11-24-2021 Albumin/Globulin [Mass ratio] 0.5 {ratio} [facility] Serum or plasma alkaline lotus sphatase measurement (enzymatic activity/volume)Ordered By: Cynthia Gibbs on 11-24-2021 ALP [Catalytic activity/Vol] 124 U/L 32-92 [facility] Serum or plasma aspartate am inotransferase measurement (enzymatic activity/volume)Ordered By: Cynthia Gibbs on 11-24-2021 AST [Catalytic activity/Vol] 21 U/L 10-42 [facility] Serum or plasma calcium leobardo urement (mass/volume)Ordered By: Cynthia Gibbs on 11-24-2021 Calcium [Mass/Vol] 7.5 mg/dL 8.2-10.2 [facility] Serum or plasma chloride mary surement (moles/volume)Ordered By: Cynthia Gibbs on 11-24-2021 Chloride [Moles/Vol] 98 mmol/L 95-114 [facility] Serum or plasma glucose leobardo urement (mass/volume)Ordered By: Cynthia Gibbs on 11-24-2021 Glucose [Mass/Vol] 135 mg/dL 70-100 [facility] Comment on above: ADA recommended refe rence range Random Glucose Reference Range is dependent on time and content of last meal. Glucose of more than 200 mg/dL in a nonstressed, ambulatory subject supports the diagnosis of Diabetes Mellitus. Serum or plasma potassium me asurement (moles/volume)Ordered By: Cynthia Gibbs on 11-24-2021 Potassium [Moles/Vol] 4.2 mmol/L 3.5-5.1 [facility] Serum or plasma sodium measu rement (moles/volume)Ordered By: Cynthia Gibbs on 11-24-2021 Sodium [Moles/Vol] 135 mmol/L 136-146 [facility] Serum or plasma total biliru bin measurement (mass/volume)Ordered By: Cynthia Gibbs on 11-24-2021 Bilirubin [Mass/Vol] 1.0 mg/dL 0.3-1.2 [facility] Serum or plasma total carbon dioxide measurement (moles/volume)Ordered By: Cynthia Gibbs on 11-24-2021 CO2 [Moles/Vol] 24.5 mmol/L 22.0-30.0 [facility] Serum or plasma urea nitroge n measurement (mass/volume)Ordered By: Cynthia Gibbs on 11-24-2021 Urea nitrogen [Mass/Vol] 82 mg/dL 9-23 [facility] Target cellsOrdered By: Cal Gibbs on 11-24-2021 Target cells LM Ql (Bld) Marked [facility] WBC Auto (Bld) [#/Vol]Ordere d By: Cynthia Gibbs on 11-24-2021 WBC (Bld) [#/Vol] 6.8 10*3/uL 4.1-10.5 [facility] PRBC LEUKOREDUCEDon 11-22-19 PRBC LEUKOREDUCED Cross Match Result Compatible Unit Blood Type O Pos Unit Number [id number] Status Information Transfused Product ID Red Blood Cells Product Code [id number] [facility] Comment on above: Performed By: #### U MICRO, ERUR #### [facility] [address] [place] [address] [address] Kerline Bush Albumin [Mass/volume] in Ser um or PlasmaOrdered By: Starla Larson on 11-20-2021 Albumin [Mass/Vol] 2.5 g/dL 3.2-5.5 [facility] Creatinine and Glomerular fi ltration rate.predicted panel (S/P/Bld)Ordered By: Starla Larson on 11-20-2021 Creatinine [Mass/Vol] 4.85 mg/dL 0.64-1.27 [facility] Estimated glomerular filtrat ion rate (GFR) non- AmericanOrdered By: Starla Larson on 11-20-2021 GFR/1.73 sq M.predicted among non-blacks MDRD (S/P/Bld) [Vol rate/Area] 12 mL/Min [facility] - CoagulationOrde red By: Julian De La Fuente on 11-20-2021 PT Coag (PPP) [Time] 27.7 s 9.0-12.9 [facility] No Panel InformationOrdered By: Starla Larson on 11-20-2021 Estimated GFR () 15 mL/Min [facility] Comment on above: GFR estimated refere nce range: According to KDOQI guidelines, <60 ml/min/1.73m2 is sufficient to diagnose a patient with chronic kidney disease. Pharmacy Creatinine Clearance (Chem 22.66 [facility] Phosphate [Mass/volume] in S socrates or PlasmaOrdered By: Starla Larson on 11-20-2021 Phosphate [Mass/Vol] 5.0 mg/dL 2.5-4.6 [facility] Platelet poor plasma interna tional normalized ratio (INR) by coagulation assay (relatOrdered By: Julian De La Fuente on 11-20-2021 INR Coag (PPP) [Relative time] 2.4 {INR} [facility] Comment on above: INR Therapeutic Rang e A) Pre- and Peroperative OAT started two weeks before surgery. NOT HIP SURGERY: 1.5 - 2.5 HIP SURGERY: 2 - 3 B) Primary and secondary prevention of venous THROMBOSIS: 2 - 3 C) Active venous thrombosis, pulmonary embolism and prevention of recurrent venous thrombosis: 2 - 3 D) Prevention of arterial thromboembolism including patients with mechanical heart valves: 3 - 4.5 Prothrombin Time INRon 11-20 INR Coag (PPP) [Relative time] 2.4 {INR} Normal [facility] Comment on above: Result Comment: INR Therapeutic Range A) Pre- and Peroperative OAT started two weeks before surgery. NOT HIP SURGERY: 1.5 - 2.5 HIP SURGERY: 2 - 3 B) Primary and secondary prevention of venous THROMBOSIS: 2 - 3 C) Active venous thrombosis, pulmonary embolism and prevention of recurrent venous thrombosis: 2 - 3 D) Prevention of arterial thromboembolism including patients with mechanical heart valves: 3 - 4.5PERFORMED BY:[address] [place], [place] [phone] MEDICAL DIRECTORISRAEL CHAN M.D. Performed By: #### P T ####[place] [id number] [facility] PT Coag (PPP) [Time] 27.7 s High 9.0-12.9 [facility] Comment on above: Performed By: #### P T ####[place] [id number] [facility] Renal Function Panelon 11-20 Albumin [Mass/Vol] 2.5 g/dL Low 3.2-5.5 [facility] Comment on above: Performed By: #### R ENAL ####[address] [address] [facility] Calcium [Mass/Vol] 7.4 mg/dL Low 8.2-10.2 [facility] Comment on above: Performed By: #### R ENAL ####[place] [id number] [facility] Chloride [Moles/Vol] 99 mmol/L Normal 95-114 [facility] Comment on above: Performed By: #### R ENAL ####[place] [id number] [facility] CO2 [Moles/Vol] 21.9 mmol/L Low 22.0-30.0 [facility] Comment on above: Performed By: #### R ENAL ####[place] [id number] [place] [id number] [facility] Creatinine [Mass/Vol] 4.85 mg/dL High 0.64-1.27 [facility] Comment on above: Performed By: #### R ENAL ####[address] [address] [facility] Creatinine Clr Calc Pharmacy 22.66 [facility] Comment on above: Result Comment: PERF ORMED BY:[address] [place], [place] [phone] MEDICAL DIRECTORISRAEL CHAN M.D. Performed By: #### R ENAL ####[place] [id number] [facility] Estimated GFR ( Zakiya 15 [facility] Comment on above: Result Comment: GFR estimated reference range: According to KDOQI guidelines, <60 ml/min/1.73m2 is sufficient to diagnose a patient with chronic kidney disease. Performed By: #### R ENAL ####[place] [id number] [facility] Estimated GFR (Non- Am 12 [facility] Comment on above: Performed By: #### R ENAL ####[place] [id number] [facility] Glucose [Mass/Vol] 141 mg/dL High 70-100 [facility] Comment on above: Result Comment: [place] Glucose Reference Range is dependent on time and content of last meal. Glucose of more than 200 mg/dL in a nonstressed, ambulatory subject supports the diagnosis of Diabetes Mellitus. ADA recommended reference range Performed By: #### R ENAL ####[address] [address] [facility] Phosphate [Mass/Vol] 5.0 mg/dL High 2.5-4.6 [facility] Comment on above: Performed By: #### R ENAL ####[address] [address] [facility] Potassium [Moles/Vol] 4.7 mmol/L Normal 3.5-5.1 [facility] Comment on above: Performed By: #### R ENAL ####[facility] [id number] [address] Sodium [Moles/Vol] 132 mmol/L Low 136-146 [facility] Comment on above: Performed By: #### R ENAL ####[facility] [id number] [address] Urea nitrogen [Mass/Vol] 82 mg/dL High 9-23 [facility] Comment on above: Performed By: #### R ENAL ####[facility] [id number] [address] Serum or plasma calcium leobardo urement (mass/volume)Ordered By: Starla Larson on 11-20-2021 Calcium [Mass/Vol] 7.4 mg/dL 8.2-10.2 [facility] Serum or plasma chloride mary surement (moles/volume)Ordered By: Starla Larson on 11-20-2021 Chloride [Moles/Vol] 99 mmol/L 95-114 [facility] Serum or plasma glucose leobardo urement (mass/volume)Ordered By: Starla Larson on 11-20-2021 Glucose [Mass/Vol] 141 mg/dL 70-100 [facility] Comment on above: ADA recommended refe rence range Random Glucose Reference Range is dependent on time and content of last meal. Glucose of more than 200 mg/dL in a nonstressed, ambulatory subject supports the diagnosis of Diabetes Mellitus. Serum or plasma potassium me asurement (moles/volume)Ordered By: Starla Larson on 11-20-2021 Potassium [Moles/Vol] 4.7 mmol/L 3.5-5.1 [facility] Serum or plasma sodium measu rement (moles/volume)Ordered By: Starla Larson on 11-20-2021 Sodium [Moles/Vol] 132 mmol/L 136-146 [facility] Serum or plasma total carbon dioxide measurement (moles/volume)Ordered By: Starla Larson on 11-20-2021 CO2 [Moles/Vol] 21.9 mmol/L 22.0-30.0 [facility] Serum or plasma urea nitroge n measurement (mass/volume)Ordered By: Starla Larson on 11-20-2021 Urea nitrogen [Mass/Vol] 82 mg/dL 9-23 [facility] Basophils Auto (Bld) [#/Vol] Ordered By: Julian De La Fuente on 11-19-2021 Basophils (Bld) [#/Vol] 0.1 10*3/uL 0.0-0.2 [facility] Basophils/100 WBC Auto (Bld) Ordered By: Julian De La Fuente on 11-19-2021 Basophils/100 WBC (Bld) 1.5 % . [facility] Blood anisocytosis detection Ordered By: Julian De La Fuente on 11-19-2021 Anisocytosis Ql (Bld) Marked [facility] Blood hemoglobin measurement (mass/volume)Ordered By: Julian De La Fuente on 11-19-2021 Hemoglobin (Bld) [Mass/Vol] 7.8 g/dL 13.0-17.0 [facility] Comprehensive Metabolic Pane maude 11-19-2021 Albumin [Mass/Vol] 2.4 g/dL Low 3.2-5.5 [facility] Comment on above: Performed By: #### S CAN CBC, MG, CMP ####[facility] [id number] [address] Albumin/Globulin [Mass ratio] 0.5 {ratio} Normal [facility] Comment on above: Performed By: #### S CAN CBC, MG, CMP ####[facility] [id number] [place] [address] [facility] ALP [Catalytic activity/Vol] 108 U/L High 32-92 [facility] Comment on above: Performed By: #### S CAN CBC, MG, CMP ####[facility] [id number] [place] [address] [facility] ALT [Catalytic activity/Vol] 12 U/L Normal 10-60 [facility] Comment on above: Performed By: #### S CAN CBC, MG, CMP ####[facility] [place] [address] [facility] AST [Catalytic activity/Vol] 16 U/L Normal 10-42 [facility] Comment on above: Performed By: #### S CAN CBC, MG, CMP ####[place] [id number] [place] [address] [facility] Bilirubin [Mass/Vol] 0.6 mg/dL Normal 0.3-1.2 [facility] Comment on above: Performed By: #### S CAN CBC, MG, CMP ####[id number] [place] [address] [facility] Calcium [Mass/Vol] 7.3 mg/dL Low 8.2-10.2 [facility] Comment on above: Performed By: #### S CAN CBC, MG, CMP ####[place] [id number] [facility] Chloride [Moles/Vol] 101 mmol/L Normal 95-114 [facility] Comment on above: Performed By: #### S CAN CBC, MG, CMP ####[place] [id number] [place] [id number] [facility] CO2 [Moles/Vol] 22.1 mmol/L Normal 22.0-30.0 [facility] Comment on above: Performed By: #### S CAN CBC, MG, CMP ####[address] [address] [facility] Creatinine [Mass/Vol] 4.83 mg/dL High 0.64-1.27 [facility] Comment on above: Performed By: #### S CAN CBC, MG, CMP ####[place] [id number] [place] [id number] [facility] Creatinine Clr Calc Pharmacy 22.17 [facility] Comment on above: Performed By: #### S CAN CBC, MG, CMP ####[facility] [id number] [place] [id number] [facility] Estimated GFR ( Zakiya 15 [facility] Comment on above: Result Comment: GFR estimated reference range: According to KDOQI guidelines, <60 ml/min/1.73m2 is sufficient to diagnose a patient with chronic kidney disease. Performed By: #### S CAN CBC, MG, CMP ####[facility] [id number] [place] [address] [facility] Estimated GFR (Non- Am [address] [facility] Comment on above: Performed By: #### S CAN CBC, MG, CMP ####[facility] [id number] [place] [address] [facility] Globulin (S) [Mass/Vol] 5.3 g/dL Normal [facility] Comment on above: Performed By: #### S CAN CBC, MG, CMP ####[facility] [id number] [place] [address] [facility] Glucose [Mass/Vol] 116 mg/dL High 70-100 [facility] Comment on above: Result Comment: [place] Glucose Reference Range is dependent on time and content of last meal. Glucose of more than 200 mg/dL in a nonstressed, ambulatory subject supports the diagnosis of Diabetes Mellitus. ADA recommended reference range Performed By: #### S CAN CBC, MG, CMP ####[facility] [id number] [place] [id number] [facility] Potassium [Moles/Vol] 4.9 mmol/L Normal 3.5-5.1 [facility] Comment on above: Performed By: #### S CAN CBC, MG, CMP ####[place] [id number] [facility] Protein [Mass/Vol] 7.7 g/dL Normal 6.1-7.9 [facility] Comment on above: Performed By: #### S CAN CBC, MG, CMP ####[facility] [id number] [place] [id number] [facility] Sodium [Moles/Vol] 132 mmol/L Low 136-146 [facility] Comment on above: Performed By: #### S CAN CBC, MG, CMP ####[facility] [id number] [place] [id number] [facility] Urea nitrogen [Mass/Vol] 76 mg/dL High 9-23 [facility] Comment on above: Performed By: #### S CAN CBC, MG, CMP ####[facility] [id number] [place] [address] [facility] Eosinophils Auto (Bld) [#/Vo l]Ordered By: Julian De La Fuente on 11-19-2021 Eosinophils (Bld) [#/Vol] 0.1 10*3/uL 0.0-0.45 [facility] Eosinophils/100 WBC Auto (Bl d)Ordered By: Julian De La Fuente on 11-19-2021 Eosinophils/100 WBC (Bld) 1.5 % . [facility] Erythrocyte distribution wid th Auto (RBC) [Ratio]Ordered By: Julian De La Fuente on 11-19-2021 Erythrocyte distribution width (RBC) [Ratio] 21.1 % 12.0-14.8 [facility] Globulin Calc (S) [Mass/Vol] Ordered By: Julian De La Fuente on 11-19-2021 Globulin (S) [Mass/Vol] 5.3 g/dL [facility] Hematocrit Auto (Bld) [Volum e fraction]Ordered By: Julian De La Fuente on 11-19-2021 Hematocrit (Bld) [Volume fraction] 24.5 % 38.8-50.0 [facility] Hypochromia detectionOrdered By: Julian De La Fuente on 11-19-2021 Hypochromia Ql (Bld) Moderate [facility] - Chemistry and C hemistry - challengeOrdered By: Julian De La Fuente on 11-19-2021 Magnesium [Mass/Vol] 1.8 mg/dL 1.6-2.6 [facility] - Hematology and Cell countsOrdered By: Julian De La Fuente on 11-19-2021 Nucleated RBC/100 WBC (Bld) [Ratio] 8.3 % 0-0.5 [facility] WBC (Bld) [#/Vol] 8.3 10*3/uL 4.5-11.0 [facility] Lymphocytes Auto (Bld) [#/Vo l]Ordered By: Julian De La Fuente on 11-19-2021 Lymphocytes (Bld) [#/Vol] 0.9 10*3/uL 1.00-4.8 [facility] Lymphocytes/100 WBC Auto (Bl d)Ordered By: Julian De La Fuente on 11-19-2021 Lymphocytes/100 WBC (Bld) 12.4 % . [facility] MCH Auto (RBC) [Entitic mass ]Ordered By: Julian De La Fuente on 11-19-2021 MCH (RBC) [Entitic mass] 23.2 pg 27.5-35.2 [facility] MCHC Auto (RBC) [Mass/Vol]Or dered By: Julian De La Fuente on 11-19-2021 MCHC (RBC) [Mass/Vol] 31.8 g/dL 32.5-35.6 [facility] MCV Auto (RBC) [Entitic vol] Ordered By: Julian De La Fuente on 11-19-2021 MCV (RBC) [Entitic vol] 72.9 fL 83.5-101 [facility] Magnesiumon 11-19-2021 Magnesium [Mass/Vol] 1.8 mg/dL Normal 1.6-2.6 [facility] Comment on above: Result Comment: PERF ORMED BY:[facility] [place] [address] [place], [place] [phone] MEDICAL DIRECTORISRAEL CHAN M.D. Performed By: #### S CAN CBC, MG, CMP ####[facility] [id number] [place] [address] [facility] Monocytes Auto (Bld) [#/Vol] Ordered By: Julian De La Fuente on 11-19-2021 Monocytes (Bld) [#/Vol] 0.9 10*3/uL 0.0-0.8 [facility] Monocytes/100 WBC Auto (Bld) Ordered By: Julian De La Fuente on 11-19-2021 Monocytes/100 WBC (Bld) 11.4 % . [facility] Neutrophils Auto (Bld) [#/Vo l]Ordered By: Julian De La Fuente on 11-19-2021 Neutrophils (Bld) [#/Vol] 5.5 10*3/uL 1.8-7.7 [facility] Neutrophils/100 WBC Auto (Bl d)Ordered By: Julian De La Fuente on 11-19-2021 Neutrophils/100 WBC (Bld) 73.2 % . [facility] No Panel InformationOrdered By: Julian De La Fuente on 11-19-2021 Platelet Estimate Normal Normal [facility] Platelet Morphology Comment Normal Normal [facility] Platelet mean volume Auto (B ld) [Entitic vol]Ordered By: Julian De La Fuente on 11-19-2021 Platelet mean volume (Bld) [Entitic vol] 7.0 fL 6.6-10.1 [facility] Platelets Auto (Bld) [#/Vol] Ordered By: Julian De La Fuente on 11-19-2021 Platelets (Bld) [#/Vol] 320 10*3/uL 150-450 [facility] Protein [Mass/volume] in Ser um or PlasmaOrdered By: Julian De La Fuente on 11-19-2021 Protein [Mass/Vol] 7.7 g/dL 6.1-7.9 [facility] Prothrombin Time INRon 11-19 INR Coag (PPP) [Relative time] 3.0 {INR} Normal [facility] Comment on above: Result Comment: INR Therapeutic Range A) Pre- and Peroperative OAT started two weeks before surgery. NOT HIP SURGERY: 1.5 - 2.5 HIP SURGERY: 2 - 3 B) Primary and secondary prevention of venous THROMBOSIS: 2 - 3 C) Active venous thrombosis, pulmonary embolism and prevention of recurrent venous thrombosis: 2 - 3 D) Prevention of arterial thromboembolism including patients with mechanical heart valves: 3 - 4.5PERFORMED BY:[address] [place], [place] [phone] MEDICAL DIRECTORISRAEL CHAN M.D. Performed By: #### P T ####[address] [address] [facility] PT Coag (PPP) [Time] 33.8 s High 9.0-12.9 [facility] Comment on above: Performed By: #### P T ####[address] [address] [facility] RBC Auto (Bld) [#/Vol]Ordere d By: Julian De La Fuente on 11-19-2021 RBC (Bld) [#/Vol] 3.36 10*6/uL 3.90-5.60 [facility] RBC morphologyOrdered By: Osbaldo De La Fuente on 11-19-2021 RBC morphology finding Nom (Bld) N/A [facility] Scan and CBCon 11-19-2021 Anisocytosis Ql (Bld) Marked Normal [facility] Comment on above: Performed By: #### S CAN CBC, MG, CMP ####[facility] [id number] [place] [address] Basophils (Bld) [#/Vol] 0.1 10*3/uL Normal 0.0-0.2 [facility] Comment on above: Performed By: #### S CAN CBC, MG, CMP ####[place] [id number] Basophils/100 WBC (Bld) 1.5 % Normal . [facility] Comment on above: Performed By: #### S CAN CBC, MG, CMP ####[address] Eosinophils (Bld) [#/Vol] 0.1 10*3/uL Normal 0.0-0.45 [facility] Comment on above: Performed By: #### S CAN CBC, MG, CMP ####[address] Eosinophils/100 WBC (Bld) 1.5 % Normal . [facility] Comment on above: Performed By: #### S CAN CBC, MG, CMP ####[address] Erythrocyte distribution width (RBC) [Ratio] 21.1 % High 12.0-14.8 [facility] Comment on above: Performed By: #### S CAN CBC, MG, CMP ####[address] Hematocrit (Bld) [Volume fraction] 24.5 % Low 38.8-50.0 [facility] Comment on above: Performed By: #### S CAN CBC, MG, CMP ####[address] Hemoglobin (Bld) [Mass/Vol] 7.8 g/dL Low 13.0-17.0 [facility] Comment on above: Performed By: #### S CAN CBC, MG, CMP ####[address] Hypochromasia Moderate Normal [facility] Comment on above: Performed By: #### S CAN CBC, MG, CMP ####[address] Lymphocytes (Bld) [#/Vol] 0.9 10*3/uL Low 1.00-4.8 [facility] Comment on above: Performed By: #### S CAN CBC, MG, CMP ####[address] Lymphocytes/100 WBC (Bld) 12.4 % Normal . [facility] Comment on above: Performed By: #### S CAN CBC, MG, CMP ####[address] MCH (RBC) [Entitic mass] 23.2 pg Low 27.5-35.2 [facility] Comment on above: Performed By: #### S CAN CBC, MG, CMP ####[address] MCV (RBC) [Entitic vol] 72.9 fL Low 83.5-101 [facility] Comment on above: Performed By: #### S CAN CBC, MG, CMP ####[address] Mean Corpuscular HGB Conc 31.8 g/dL Low 32.5-35.6 [facility] Comment on above: Performed By: #### S CAN CBC, MG, CMP ####[address] Monocytes (Bld) [#/Vol] 0.9 10*3/uL High 0.0-0.8 [facility] Comment on above: Performed By: #### S CAN CBC, MG, CMP ####[address] Monocytes/100 WBC (Bld) 11.4 % Normal . [facility] Comment on above: Performed By: #### S CAN CBC, MG, CMP ####[address] Neutrophils (Bld) [#/Vol] 5.5 10*3/uL Normal 1.8-7.7 [facility] Comment on above: Performed By: #### S CAN CBC, MG, CMP ####[address] Neutrophils/100 WBC (Bld) 73.2 % Normal . [facility] Comment on above: Performed By: #### S CAN CBC, MG, CMP ####[address] Nucleated RBC/100 WBC (Bld) [Ratio] 8.3 % High 0-0.5 [facility] Comment on above: Performed By: #### S CAN CBC, MG, CMP ####[address] Platelet Estimate Normal Normal Normal [facility] Comment on above: Performed By: #### S CAN CBC, MG, CMP ####[address] Platelet mean volume (Bld) [Entitic vol] 7.0 fL Normal 6.6-10.1 [facility] Comment on above: Performed By: #### S CAN CBC, MG, CMP ####[address] Platelet Morphology Normal Normal Normal [facility] Comment on above: Result Comment: PERF ORMED BY:[address] [place], [place] [phone] MEDICAL DIANA CHAN M.D. Performed By: #### S CAN CBC, MG, CMP ####[address] Platelets (Bld) [#/Vol] 320 10*3/uL Normal 150-450 [facility] Comment on above: Performed By: #### S CAN CBC, MG, CMP ####[facility] [id number] [address] RBC (Bld) [#/Vol] 3.36 10*6/uL Low 3.90-5.60 [facility] Comment on above: Performed By: #### S CAN CBC, MG, CMP ####[place] [id number] Target Cells Moderate Normal [facility] Comment on above: Performed By: #### S CAN CBC, MG, CMP ####[facility] [id number] [address] WBC (Bld) [#/Vol] 7.5 10*3/uL Normal 4.1-10.5 [facility] Comment on above: Performed By: #### S CAN CBC, MG, CMP ####[facility] [id number] [address] WBC (Bld) [#/Vol] 8.3 10*3/uL Normal 4.5-11.0 [facility] Comment on above: Performed By: #### S CAN CBC, MG, CMP ####[address] Serum or plasma alanine worley otransferase measurement without P-5'-P (enzymatic activiOrdered By: Julian De La Fuente on 11-19-2021 ALT No additional P-5'-P [Catalytic activity/Vol] 12 U/L 10-60 [facility] Serum or plasma albumin/glob ulin mass ratioOrdered By: Julian De La Fuente on 11-19-2021 Albumin/Globulin [Mass ratio] 0.5 {ratio} [facility] Serum or plasma alkaline lotus sphatase measurement (enzymatic activity/volume)Ordered By: Julian De La Fuente on 11-19-2021 ALP [Catalytic activity/Vol] 108 U/L 32-92 [facility] Serum or plasma aspartate am inotransferase measurement (enzymatic activity/volume)Ordered By: Julian De La Fuente on 11-19-2021 AST [Catalytic activity/Vol] 16 U/L 10-42 [facility] Serum or plasma total biliru bin measurement (mass/volume)Ordered By: Julian De La Fuente on 11-19-2021 Bilirubin [Mass/Vol] 0.6 mg/dL 0.3-1.2 [facility] Target cellsOrdered By: Julian De La Fuente on 11-19-2021 Target cells LM Ql (Bld) Moderate [facility] US map hemodial access BILon 11-19-2021 US map hemodial access ROCHELLE Normal [facility] WBC Auto (Bld) [#/Vol]Ordere d By: Julian De La Fuente on 11-19-2021 WBC (Bld) [#/Vol] 7.5 10*3/uL 4.1-10.5 [facility] Comprehensive Metabolic Pane maude 11-18-2021 Albumin [Mass/Vol] 2.5 g/dL Low 3.2-5.5 [facility] Comment on above: Performed By: #### M G, CMP, SCAN CBC ####[place] [id number] Albumin/Globulin [Mass ratio] 0.4 {ratio} Normal [facility] Comment on above: Performed By: #### M Delmer, CMP, SCAN CBC ####[facility] [place] [id number] [facility] ALP [Catalytic activity/Vol] 115 U/L High 32-92 [facility] Comment on above: Performed By: #### M Delmer, CMP, SCAN CBC ####[facility] [id number] [place] [address] [facility] ALT [Catalytic activity/Vol] 11 U/L Normal 10-60 [facility] Comment on above: Performed By: #### M G, CMP, SCAN CBC ####[facility] [id number] [place] [address] [facility] AST [Catalytic activity/Vol] 15 U/L Normal [facility] Comment on above: Performed By: #### M G, CMP, SCAN CBC ####[facility] [id number] [place] [address] [facility] Bilirubin [Mass/Vol] 0.5 mg/dL Normal 0.3-1.2 [facility] Comment on above: Performed By: #### M G, CMP, SCAN CBC ####[place] [id number] [place] [id number] [facility] Calcium [Mass/Vol] 7.3 mg/dL Low 8.2-10.2 [facility] Comment on above: Performed By: #### M G, CMP, SCAN CBC ####[facility] [id number] [place] [id number] [facility] Chloride [Moles/Vol] 99 mmol/L Normal 95-114 [facility] Comment on above: Performed By: #### M G, CMP, SCAN CBC ####[place] [id number] [facility] CO2 [Moles/Vol] 24.1 mmol/L Normal 22.0-30.0 [facility] Comment on above: Performed By: #### M G, CMP, SCAN CBC ####[place] [id number] [facility] Creatinine [Mass/Vol] 4.60 mg/dL High 0.64-1.27 [facility] Comment on above: Performed By: #### M G, CMP, SCAN CBC ####[place] [id number] [facility] Creatinine Clr Calc Pharmacy 23.58 [facility] Comment on above: Performed By: #### M G, CMP, SCAN CBC ####[facility] Pre2783 [place] [id number] [facility] Estimated GFR ( Zakiya 16 [facility] Comment on above: Result Comment: GFR estimated reference range: According to KDOQI guidelines, <60 ml/min/1.73m2 is sufficient to diagnose a patient with chronic kidney disease. Performed By: #### M G, CMP, SCAN CBC ####[place] [id number] [facility] Estimated GFR (Non- Am 13 [facility] Comment on above: Performed By: #### M G, CMP, SCAN CBC ####[place] [id number] [facility] Globulin (S) [Mass/Vol] 5.6 g/dL Normal [facility] Comment on above: Performed By: #### M G, CMP, SCAN CBC ####[place] [id number] [place] [id number] [facility] Glucose [Mass/Vol] 121 mg/dL High 70-100 [facility] Comment on above: Result Comment: [place] Glucose Reference Range is dependent on time and content of last meal. Glucose of more than 200 mg/dL in a nonstressed, ambulatory subject supports the diagnosis of Diabetes Mellitus. ADA recommended reference range Performed By: #### M G, CMP, SCAN CBC ####[place] [id number] [facility] Potassium [Moles/Vol] 5.0 mmol/L Normal 3.5-5.1 [facility] Comment on above: Performed By: #### M G, CMP, SCAN CBC ####[place] [id number] [facility] Protein [Mass/Vol] 8.1 g/dL High 6.1-7.9 [facility] Comment on above: Performed By: #### M G, CMP, SCAN CBC ####[place] [id number] [facility] Sodium [Moles/Vol] 133 mmol/L Low 136-146 [facility] Comment on above: Performed By: #### M G, CMP, SCAN CBC ####[place] [id number] [facility] Urea nitrogen [Mass/Vol] 70 mg/dL High 9-23 [facility] Comment on above: Performed By: #### M G, CMP, SCAN CBC ####[place] [id number] [facility] Albumin [Mass/Vol] 2.4 g/dL Low 3.2-5.5 [facility] Comment on above: Performed By: #### L ACTIC, LIPASE, CMP ####[place] [id number] [facility] Albumin/Globulin [Mass ratio] 0.4 {ratio} Normal [facility] Comment on above: Performed By: #### L ACTIC, LIPASE, CMP ####[place] [id number] [place] [id number] [facility] ALP [Catalytic activity/Vol] 103 U/L High 32-92 [facility] Comment on above: Performed By: #### L ACTIC, LIPASE, CMP ####[place] [id number] [place] [id number] [facility] ALT [Catalytic activity/Vol] 10 U/L Normal 10-60 [facility] Comment on above: Performed By: #### L ACTIC, LIPASE, CMP ####[place] [id number] AST [Catalytic activity/Vol] 15 U/L Normal 10-42 [facility] Comment on above: Performed By: #### L ACTIC, LIPASE, CMP ####[address] Bilirubin [Mass/Vol] 0.7 mg/dL Normal 0.3-1.2 [facility] Comment on above: Performed By: #### L ACTIC, LIPASE, CMP ####[address] Calcium [Mass/Vol] 7.2 mg/dL Low 8.2-10.2 [facility] Comment on above: Performed By: #### L ACTIC, LIPASE, CMP ####[address] Chloride [Moles/Vol] 100 mmol/L Normal 95-114 [facility] Comment on above: Performed By: #### L ACTIC, LIPASE, CMP ####[place] [id number] [facility] CO2 [Moles/Vol] 23.3 mmol/L Normal 22.0-30.0 [facility] Comment on above: Performed By: #### L ACTIC, LIPASE, CMP ####[address] Creatinine [Mass/Vol] 4.37 mg/dL High 0.64-1.27 [facility] Comment on above: Performed By: #### L ACTIC, LIPASE, CMP ####[place] [id number] [facility] Creatinine Clr Calc Pharmacy 24.26 [facility] Comment on above: Performed By: #### L ACTIC, LIPASE, CMP ####[address] Estimated GFR ( Zakiya 17 [facility] Comment on above: Result Comment: GFR estimated reference range: According to KDOQI guidelines, <60 ml/min/1.73m2 is sufficient to diagnose a patient with chronic kidney disease. Performed By: #### L ACTIC, LIPASE, CMP ####[address] Estimated GFR (Non- Am 14 [facility] Comment on above: Performed By: #### L ACTIC, LIPASE, CMP ####[address] Globulin (S) [Mass/Vol] 5.4 g/dL [facility] Comment on above: Performed By: #### L ACTIC, LIPASE, CMP ####[address] Glucose [Mass/Vol] 114 mg/dL High 70-100 [facility] Comment on above: Result Comment: [place] Glucose Reference Range is dependent on time and content of last meal. Glucose of more than 200 mg/dL in a nonstressed, ambulatory subject supports the diagnosis of Diabetes Mellitus. ADA recommended reference range Performed By: #### L ACTIC, LIPASE, CMP ####[place] [id number] [facility] Potassium [Moles/Vol] 4.4 mmol/L Normal 3.5-5.1 [facility] Comment on above: Performed By: #### L ACTIC, LIPASE, CMP ####[address] Protein [Mass/Vol] 7.8 g/dL Normal 6.1-7.9 [facility] Comment on above: Performed By: #### L ACTIC, LIPASE, CMP ####[address] [address] [facility] Sodium [Moles/Vol] 133 mmol/L Low 136-146 [facility] Comment on above: Performed By: #### L ACTIC, LIPASE, CMP ####[place] [id number] [facility] Urea nitrogen [Mass/Vol] 69 mg/dL High 9-23 [facility] Comment on above: Performed By: #### L ACTIC, LIPASE, CMP ####[place] [id number] [place] [id number] [facility] Lactic Acidon 11-18-2021 Lactate [Moles/Vol] 0.8 mmol/L Normal 0.5-2.2 [facility] Comment on above: Result Comment: PERF ORMED BY:[place] [address] [place], [place] [phone] MEDICAL DIRECTORISRAEL CHAN M.D. Performed By: #### L ACTIC, LIPASE, CMP ####[address] [address] [facility] Lipaseon 11-18-2021 Lipase [Catalytic activity/Vol] 42.0 U/L Normal 22-51 [facility] Comment on above: Result Comment: PERF ORMED BY:[place] [address] [place], [place] [phone] MEDICAL DIRECTORISRAEL CHAN M.D. Performed By: #### L ACTIC, LIPASE, CMP ####[address] [address] [facility] Magnesiumon 11-18-2021 Magnesium [Mass/Vol] 1.8 mg/dL Normal 1.6-2.6 [facility] Comment on above: Result Comment: PERF ORMED BY:[place] [address] [place], [place] [phone] MEDICAL DIRECTORISRAEL CHAN M.D. Performed By: #### M G, CMP, SCAN CBC ####[address] No Panel InformationOrdered By: Julian De La Fuente on 11-18-[address] [facility] Prothrombin Time INRon 11-18 INR Coag (PPP) [Relative time] 3.4 {INR} Normal [facility] Comment on above: Result Comment: INR Therapeutic Range A) Pre- and Peroperative OAT started two weeks before surgery. NOT HIP SURGERY: 1.5 - 2.5 HIP SURGERY: 2 - 3 B) Primary and secondary prevention of venous THROMBOSIS: 2 - 3 C) Active venous thrombosis, pulmonary embolism and prevention of recurrent venous thrombosis: 2 - 3 D) Prevention of arterial thromboembolism including patients with mechanical heart valves: 3 - 4.5PERFORMED BY:[address] [place], [place] [phone] MEDICAL DIRECTORISRAEL CHAN M.D. Performed By: #### P T ####[address] PT Coag (PPP) [Time] 39.5 s High 9.0-12.9 [facility] Comment on above: Performed By: #### P T ####[address] Scan and CBCon 11-18-2021 Anisocytosis Ql (Bld) Marked Normal [facility] Comment on above: Performed By: #### M G, CMP, SCAN CBC ####[address] Basophils (Bld) [#/Vol] 0.0 10*3/uL Normal 0.0-0.2 [facility] Comment on above: Performed By: #### M G, CMP, SCAN CBC ####[address] Basophils/100 WBC (Bld) 0.6 % Normal . [facility] Comment on above: Performed By: #### M G, CMP, SCAN CBC ####[place] [id number] [place] [id number] [facility] Eosinophils (Bld) [#/Vol] 0.1 10*3/uL Normal 0.0-0.45 [facility] Comment on above: Performed By: #### M G, CMP, SCAN CBC ####[place] [id number] [facility] Eosinophils/100 WBC (Bld) 1.7 % Normal . [facility] Comment on above: Performed By: #### M G, CMP, SCAN CBC ####[address] Erythrocyte distribution width (RBC) [Ratio] 20.6 % High 12.0-14.8 [facility] Comment on above: Performed By: #### M G, CMP, SCAN CBC ####[address] Hematocrit (Bld) [Volume fraction] 24.8 % Low 38.8-50.0 [facility] Comment on above: Performed By: #### M G, CMP, SCAN CBC ####[address] Hemoglobin (Bld) [Mass/Vol] 7.9 g/dL Low 13.0-17.0 [facility] Comment on above: Performed By: #### M G, CMP, SCAN CBC ####[address] Hypochromasia Moderate Normal [facility] Comment on above: Performed By: #### M G, CMP, SCAN CBC ####[place] [id number] [facility] Lymphocytes (Bld) [#/Vol] 1.0 10*3/uL Normal 1.00-4.8 [facility] Comment on above: Performed By: #### M G, CMP, SCAN CBC ####[place] [id number] [facility] Lymphocytes/100 WBC (Bld) 17.5 % Normal . [facility] Comment on above: Performed By: #### M G, CMP, SCAN CBC ####[address] MCH (RBC) [Entitic mass] 23.3 pg Low 27.5-35.2 [facility] Comment on above: Performed By: #### M G, CMP, SCAN CBC ####[address] MCV (RBC) [Entitic vol] 73.6 fL Low 83.5-101 [facility] Comment on above: Performed By: #### M G, CMP, SCAN CBC ####[address] Mean Corpuscular HGB Conc 31.7 g/dL Low 32.5-35.6 [facility] Comment on above: Performed By: #### M G, CMP, SCAN CBC ####[address] Monocytes (Bld) [#/Vol] 0.6 10*3/uL Normal 0.0-0.8 [facility] Comment on above: Performed By: #### M G, CMP, SCAN CBC ####[address] Monocytes/100 WBC (Bld) 11.1 % Normal . [facility] Comment on above: Performed By: #### M G, CMP, SCAN CBC ####[address] Neutrophils (Bld) [#/Vol] 4.0 10*3/uL Normal 1.8-7.7 [facility] Comment on above: Performed By: #### M G, CMP, SCAN CBC ####[address] Neutrophils/100 WBC (Bld) 69.1 % Normal . [facility] Comment on above: Performed By: #### M G, CMP, SCAN CBC ####[address] Nucleated RBC/100 WBC (Bld) [Ratio] 3.5 % High 0-0.5 [facility] Comment on above: Performed By: #### M G, CMP, SCAN CBC ####[place] [address] [place] [address] [facility] Platelet Estimate Normal Normal Normal [facility] Comment on above: Performed By: #### M G, CMP, SCAN CBC ####[place] [address] [place] [address] [facility] Platelet mean volume (Bld) [Entitic vol] 7.4 fL Normal 6.6-10.1 [facility] Comment on above: Performed By: #### M G, CMP, SCAN CBC ####[address] [address] [facility] Platelet Morphology Normal Normal Normal [facility] Comment on above: Result Comment: PERF ORMED BY:[address] [place], [place] [phone] MEDICAL DIRECTORISRAEL CHAN M.D. Performed By: #### M G, CMP, SCAN CBC ####[address] [address] [facility] Platelets (Bld) [#/Vol] 333 10*3/uL Normal 150-450 [facility] Comment on above: Performed By: #### M G, CMP, SCAN CBC ####[address] [address] [facility] RBC (Bld) [#/Vol] 3.37 10*6/uL Low 3.90-5.60 [facility] Comment on above: Performed By: #### M G, CMP, SCAN CBC ####[address] [address] [facility] Schistocytes Slight Normal [facility] Comment on above: Performed By: #### M G, CMP, SCAN CBC ####[place] [address] [place] [address] [facility] Target Cells Moderate Normal [facility] Comment on above: Performed By: #### M G, CMP, SCAN CBC ####[address] WBC (Bld) [#/Vol] 5.8 10*3/uL Normal 4.1-10.5 [facility] Comment on above: Performed By: #### M G, CMP, SCAN CBC ####[address] WBC (Bld) [#/Vol] 6.1 10*3/uL Normal 4.5-11.0 [facility] Comment on above: Performed By: #### M G, CMP, SCAN CBC ####[place] [id number] [facility] XR acute abdomen serieson XR acute abdomen series Normal [facility] Complete Blood Count Auto Di ffon 11-17-2021 Basophils (Bld) [#/Vol] 0.0 10*3/uL Normal 0.0-0.2 [facility] Comment on above: Result Comment: PERF ORMED BY:[address] [place], [place] [phone] MEDICAL DIRECTORISRAEL CHAN M.D. Performed By: #### M Delmer, CMP, CBC ####[address] Basophils/100 WBC (Bld) 0.3 % Normal . [facility] Comment on above: Performed By: #### M G, CMP, CBC ####[address] Eosinophils (Bld) [#/Vol] 0.0 10*3/uL Normal 0.0-0.45 [facility] Comment on above: Performed By: #### M G, CMP, CBC ####[address] Eosinophils/100 WBC (Bld) 0.1 % Normal . [facility] Comment on above: Performed By: #### M G, CMP, CBC ####[address] Erythrocyte distribution width (RBC) [Ratio] 20.5 % High 12.0-14.8 [facility] Comment on above: Performed By: #### M JAYLIN Dowell, CBC ####[address] Hematocrit (Bld) [Volume fraction] 24.2 % Low 38.8-50.0 [facility] Comment on above: Performed By: #### Sy Dowell CMP, CBC ####[address] Hemoglobin (Bld) [Mass/Vol] 7.6 g/dL Low 13.0-17.0 [facility] Comment on above: Performed By: #### Sy Dowell CMP, CBC ####[address] Lymphocytes (Bld) [#/Vol] 3.4 10*3/uL Normal 1.00-4.8 [facility] Comment on above: Performed By: #### Sy Dowell CMP, CBC ####[address] Lymphocytes/100 WBC (Bld) 39.6 % Normal . [facility] Comment on above: Performed By: #### Sy Dowell CMP, CBC ####[address] MCH (RBC) [Entitic mass] 23.5 pg Low 27.5-35.2 [facility] Comment on above: Performed By: #### Sy Dowell CMP, CBC ####[address] MCV (RBC) [Entitic vol] 75.0 fL Low 83.5-101 [facility] Comment on above: Performed By: #### Sy Dowell CMP, CBC ####[address] Mean Corpuscular HGB Conc 31.3 g/dL Low 32.5-35.6 [facility] Comment on above: Performed By: #### Sy Dowell CMP, CBC ####[place] [address] [place] [address] [facility] Monocytes (Bld) [#/Vol] 0.4 10*3/uL Normal 0.0-0.8 [facility] Comment on above: Performed By: #### M Delmer, CMP, CBC ####[address] [address] [facility] Monocytes/100 WBC (Bld) 5.3 % Normal . [facility] Comment on above: Performed By: #### Sy Dowell, CMP, CBC ####[place] [id number] [facility] Neutrophils (Bld) [#/Vol] 4.6 10*3/uL Normal 1.8-7.7 [facility] Comment on above: Performed By: #### Sy Dowell, CMP, CBC ####[place] [id number] [facility] Neutrophils/100 WBC (Bld) 54.7 % Normal . [facility] Comment on above: Performed By: #### Sy Dowell, CMP, CBC ####[place] [id number] [facility] Nucleated RBC/100 WBC (Bld) [Ratio] 1.0 % High 0-0.5 [facility] Comment on above: Performed By: #### Sy Dowell, CMP, CBC ####[place] [id number] [facility] Platelet mean volume (Bld) [Entitic vol] 7.8 fL Normal 6.6-10.1 [facility] Comment on above: Performed By: #### Sy Dowell, CMP, CBC ####[address] [address] [facility] Platelets (Bld) [#/Vol] 345 10*3/uL Normal 150-450 [facility] Comment on above: Performed By: #### Sy Dowell, CMP, CBC ####[address] [address] [facility] RBC (Bld) [#/Vol] 3.22 10*6/uL Low 3.90-5.60 [facility] Comment on above: Performed By: #### Sy Dowell CMP, CBC ####[place] [id number] [facility] WBC (Bld) [#/Vol] 8.5 10*3/uL Normal 4.5-11.0 [facility] Comment on above: Performed By: #### Sy Dowell CMP, CBC ####[place] [id number] [facility] Comprehensive Metabolic Pane maude 11-17-2021 Albumin [Mass/Vol] 2.2 g/dL Low 3.2-5.5 [facility] Comment on above: Performed By: #### Sy Dowell CMP, CBC ####[address] Albumin/Globulin [Mass ratio] 0.4 {ratio} Normal [facility] Comment on above: Performed By: #### Sy Dowell CMP, CBC ####[place] [id number] [facility] ALP [Catalytic activity/Vol] 99 U/L High 32-92 [facility] Comment on above: Performed By: #### Sy Dowell CMP, CBC ####[place] [id number] [facility] ALT [Catalytic activity/Vol] 10 U/L Normal 10-60 [facility] Comment on above: Performed By: #### Sy Dowell CMP, CBC ####[place] [id number] [facility] AST [Catalytic activity/Vol] 12 U/L Normal 10-42 [facility] Comment on above: Performed By: #### Sy Dowell CMP, CBC ####[place] [id number] [facility] Bilirubin [Mass/Vol] 0.7 mg/dL Normal 0.3-1.2 [facility] Comment on above: Performed By: #### Sy Dowell CMP, CBC ####[place] [id number] [facility] Calcium [Mass/Vol] 7.7 mg/dL Low 8.2-10.2 [facility] Comment on above: Performed By: #### Sy Dowell CMP, CBC ####[address] Chloride [Moles/Vol] 101 mmol/L Normal 95-114 [facility] Comment on above: Performed By: #### M Delmer CMP, CBC ####[place] [id number] [facility] CO2 [Moles/Vol] 25.3 mmol/L Normal 22.0-30.0 [facility] Comment on above: Performed By: #### Sy Dowell CMP, CBC ####[address] Creatinine [Mass/Vol] 3.94 mg/dL High 0.64-1.27 [facility] Comment on above: Performed By: #### Sy Dowell CMP, CBC ####[address] Creatinine Clr Calc Pharmacy 26.91 [facility] Comment on above: Performed By: #### Sy Dowell CMP, CBC ####[address] Estimated GFR ( Zakiya 19 [facility] Comment on above: Result Comment: GFR estimated reference range: According to KDOQI guidelines, <60 ml/min/1.73m2 is sufficient to diagnose a patient with chronic kidney disease. Performed By: #### Sy Dowell CMP, CBC ####[place] [id number] [facility] Estimated GFR (Non- Am 16 [facility] Comment on above: Performed By: #### Sy Dowell CMP, CBC ####[place] [id number] [facility] Globulin (S) [Mass/Vol] 5.3 g/dL [facility] Comment on above: Performed By: #### Sy Dowell CMP, CBC ####[address] Glucose [Mass/Vol] 131 mg/dL High 70-100 [facility] Comment on above: Result Comment: [place] Glucose Reference Range is dependent on time and content of last meal. Glucose of more than 200 mg/dL in a nonstressed, ambulatory subject supports the diagnosis of Diabetes Mellitus. ADA recommended reference range Performed By: #### M Delmer, CMP, CBC ####[facility] [id number] [place] [address] [facility] Potassium [Moles/Vol] 4.8 mmol/L Normal 3.5-5.1 [facility] Comment on above: Performed By: #### M Delmer, CMP, CBC ####[facility] [id number] [place] [address] [facility] Protein [Mass/Vol] 7.5 g/dL Normal 6.1-7.9 [facility] Comment on above: Performed By: #### Sy Dowell, CMP, CBC ####[place] [place] [address] [facility] Sodium [Moles/Vol] 137 mmol/L Normal 136-146 [facility] Comment on above: Performed By: #### Sy Dowell, CMP, CBC ####[place] [place] [address] [facility] Urea nitrogen [Mass/Vol] 61 mg/dL High 9-23 [facility] Comment on above: Performed By: #### M Delmer, CMP, CBC ####[place] [address] [place] [address] [facility] Laboratory - Chemistry and C hemistry - challengeOrdered By: Rupali Quezada on 11-17-2021 Lipase [Catalytic activity/Vol] 42.0 U/L 51 [facility] Magnesiumon 11-17-2021 Magnesium [Mass/Vol] 1.8 mg/dL Normal 1.6-2.6 [facility] Comment on above: Result Comment: PERF ORMED BY:[address] [place], [place] [phone] MEDICAL DIRECTORISRAEL CHAN M.D. Performed By: #### Sy Dowell, CMP, CBC ####[place] [place] [address] [facility] Prothrombin Time INRon 11-17 INR Coag (PPP) [Relative time] 3.7 {INR} Normal [facility] Comment on above: Result Comment: INR Therapeutic Range A) Pre- and Peroperative OAT started two weeks before surgery. NOT HIP SURGERY: 1.5 - 2.5 HIP SURGERY: 2 - 3 B) Primary and secondary prevention of venous THROMBOSIS: 2 - 3 C) Active venous thrombosis, pulmonary embolism and prevention of recurrent venous thrombosis: 2 - 3 D) Prevention of arterial thromboembolism including patients with mechanical heart valves: 3 - 4.5PERFORMED BY:[place] [address] [address] [place], [place] [phone] MEDICAL DIRECTORISRAEL CHAN M.D. Performed By: #### P T ####[address] [address] [facility] PT Coag (PPP) [Time] 42.4 s High 9.0-12.9 [facility] Comment on above: Performed By: #### P T ####[address] [address] [facility] Troponin I High Sensitivityo n 11-17-2021 Troponin I High Sensitivity 14 pg/mL Normal 0-20 [facility] Comment on above: Result Comment: PERF ORMED BY:[place] [address] [place] [place], [place] [phone] MEDICAL DIANA CHAN M.D. Performed By: #### H S TROP ####[address] [address] [facility] Urine lactic acid measuremen tOrdered By: Rupali Quezada on 11-17-2021 Lactate (U) [Moles/Vol] 0.8 mmol/L 0.5-2.2 [facility] CBC W MANUAL DIFFon 11-17-19 22 ANISOCYTOSIS 2+ Normal [facility] Comment on above: Performed By: #### H STROPN, BNP, BMP #### [facility] [address] [address] [address] Kerline Bush ATYPICAL LYMPH # Normal [facility] Comment on above: Performed By: #### H STROPN, BNP, BMP #### [facility] [address] [address] [address] Kerline Bush ATYPICAL LYMPH % Normal [facility] Comment on above: Performed By: #### H STROPN, BNP, BMP #### [facility] [address] [address] [address] Kerline Bush BAND # Normal 0.0-0.3 [facility] Comment on above: Performed By: #### H STROPN, BNP, BMP #### [facility] [address] [address] [address] Kerline Bush BAND % Normal 0-5 [facility] Comment on above: Performed By: #### H STROPN, BNP, BMP #### [facility] [address] [place] [address] Dr. Kerline Bush BASOM # 0.00 103/ul Normal 0.00-0.10 [facility] Comment on above: Performed By: #### H STROPN, BNP, BMP #### [facility] [address] [address] [address] Kerline Bush BASOM % 0.0 % Critically low 0.2-2.0 [facility] Comment on above: Performed By: #### H STROPN, BNP, BMP #### [facility] [address] [address] [address] Kerline Bush BLAST # Normal [facility] Comment on above: Performed By: #### H STROPN, BNP, BMP #### [facility] [address] [place] [address] Dr. Kerline Bush BLAST % Normal [facility] Comment on above: Performed By: #### H STROPN, BNP, BMP #### [facility] [address] [address] [address] Kerline Bush CORRECTED WBC Normal 4.0-11.0 [facility] Comment on above: Performed By: #### H STROPN, BNP, BMP #### [facility] [address] [address] [address] Kerline Bush EOS # 0.00 103/ul Normal 0.00-0.70 [facility] Comment on above: Performed By: #### H STROPN, BNP, BMP #### [facility] [address] [address] [address] Kerline Bush EOS% 0.0 % Critically low 0.9-7.0 [facility] Comment on above: Performed By: #### H STROPN, BNP, BMP #### [facility] [address] [address] [address] Kerline Bush HCT 22.7 % Critically low 42.0-54.0 [facility] Comment on above: Performed By: #### H STROPN, BNP, BMP #### [facility] [address] [address] [address] Kerline Bush HGB 7.2 g/dl Critically low 14.0-18.0 [facility] Comment on above: Performed By: #### H STROPN, BNP, BMP #### [facility] [address] [place] [address] Dr. Kerline Bush HYPOCHROMASIA 1+ Normal [facility] Comment on above: Performed By: #### H STROPN, BNP, BMP #### [facility] [address] [place] [address] Dr. Kerline Bush LYMPHM # 0.24 103/ul Critically low 1.20-3.80 [facility] Comment on above: Performed By: #### H STROPN, BNP, BMP #### [facility] [address] [place] [address] Dr. Kerline Bush LYMPHM% 4.0 % Critically low 20.5-60.0 [facility] Comment on above: Performed By: #### H STROPN, BNP, BMP #### [facility] [address] [address] [address] Kerline Bush MCH 23.0 pg Critically low 25.9-34.0 [facility] Comment on above: Performed By: #### H STROPN, BNP, BMP #### [facility] [address] [place] [address] Dr. Kerline Bush MCHC 31.7 g/dl Normal 29.9-35.2 [facility] Comment on above: Performed By: #### H STROPN, BNP, BMP #### [facility] [address] [address] [address] Kerline Bush MCV 72.5 fL Critically low 80.0-94.0 [facility] Comment on above: Performed By: #### H STROPN, BNP, BMP #### [facility] [address] [place] [address] Dr. Kerline Bush METAMYELOCYTE # Normal [facility] Comment on above: Performed By: #### H STROPN, BNP, BMP #### [facility] [address] [place] [address] Dr. Kerline Bush METAMYELOCYTE % Normal [facility] Comment on above: Performed By: #### H STROPN, BNP, BMP #### [facility] [address] [place] [address] Dr. Kerline Bush MICROCYTOSIS 1+ Normal [facility] Comment on above: Performed By: #### H STROPN, BNP, BMP #### [facility] [address] [place] [address] Dr. Kerline Bush MONOM# 0.18 103/ul Critically low 0.30-0.80 [facility] Comment on above: Performed By: #### H STROPN, BNP, BMP #### [facility] [address] [place] [address] Dr. Kerline Bush MONOM% 3.0 % Normal 1.7-12.0 [facility] Comment on above: Performed By: #### H STROPN, BNP, BMP #### [facility] [address] [place] [address] Dr. Kerline Bush MPV 9.3 fL Critically low 9.5-13.5 [facility] Comment on above: Performed By: #### H STROPN, BNP, BMP #### [facility] [address] [place] [address] Dr. Kerline Bush MYELOCYTE # Normal [facility] Comment on above: Performed By: #### H STROPN, BNP, BMP #### [facility] [address] [address] [address] Kerline Bush MYELOCYTE % Normal [facility] Comment on above: Performed By: #### H STROPN, BNP, BMP #### [facility] [address] [address] [address] Kerline Bush NRBC Normal [facility] Comment on above: Performed By: #### H STROPN, BNP, BMP #### [facility] [address] [address] [address] Kerline Bush PLT 315 103/ul Normal 150-450 [facility] Comment on above: Performed By: #### H STROPN, BNP, BMP #### [facility] [address] [address] [address] Kerline Bush RBC 3.13 106/ul Critically low 4.70-6.10 [facility] Comment on above: Performed By: #### H STROPN, BNP, BMP #### [facility] [address] [address] [address] Kerline Bush RDW 19.1 % Critically high 11.0-15.0 [facility] Comment on above: Performed By: #### H STROPN, BNP, BMP #### [facility] [address] [address] [address] Kerline Bush SEG # 5.58 103/ul Normal 1.40-6.50 [facility] Comment on above: Performed By: #### H STROPN, BNP, BMP #### [facility] [address] [address] [address] Kerline Bush SEG % 93.0 % Critically high 43.0-75.[address] [facility] Comment on above: Performed By: #### H STROPN, BNP, BMP #### [facility] [place] [facility] [address] [address] [address] Kerline Bush TARGET CELLS 1+ Normal [facility] Comment on above: Performed By: #### H STROPN, BNP, BMP #### [facility] [place] [facility] [address] [place], [place] [address] Dr. Kerline Bush WBC 6.0 103/ul Normal 4.0-11.0 [facility] [place] [facility] Comment on above: Performed By: #### H STROPN, BNP, BMP #### [facility] [place] [facility] [address], [place] [address] biopsyOrdered By: Julian cordova on 11-16-2021 Transferrin [Mass/Vol] 220 mg/dL 180-380 [facility] Comprehensive Metabolic Pane maude 11-16-2021 Albumin [Mass/Vol] 2.3 g/dL Low 3.2-5.5 [facility] Comment on above: Performed By: #### S CAN CBC, [id number], FE and TIBC, MG, CMP ####[place] [id number] Albumin/Globulin [Mass ratio] 0.4 {ratio} Normal [facility] Comment on above: Performed By: #### S CAN CBC, [id number], FE and TIBC, MG, CMP ####[place] [id number] [facility] ALP [Catalytic activity/Vol] 97 U/L High 32-92 [facility] Comment on above: Performed By: #### S CAN CBC, [id number], FE and TIBC, MG, CMP ####[place] [id number] [facility] ALT [Catalytic activity/Vol] 10 U/L Normal 10-60 [facility] Comment on above: Performed By: #### S CAN CBC, [id number], FE and TIBC, MG, CMP ####[place] [id number] [facility] AST [Catalytic activity/Vol] 15 U/L Normal 10-42 [facility] Comment on above: Performed By: #### S CAN CBC, [id number], FE and TIBC, MG, CMP ####[place] [id number] [facility] Bilirubin [Mass/Vol] 0.8 mg/dL Normal 0.3-1.2 [facility] Comment on above: Performed By: #### S CAN CBC, [id number], FE and TIBC, MG, CMP ####[address] Calcium [Mass/Vol] 7.7 mg/dL Low 8.2-10.2 [facility] Comment on above: Performed By: #### S CAN CBC, [id number], FE and TIBC, MG, CMP ####[address] Chloride [Moles/Vol] 98 mmol/L Normal 95-114 [facility] Comment on above: Performed By: #### S CAN CBC, [id number], FE and TIBC, MG, CMP ####[address] CO2 [Moles/Vol] 21.6 mmol/L Low 22.0-30.0 [facility] Comment on above: Performed By: #### S CAN CBC, [id number], FE and TIBC, MG, CMP ####[address] Creatinine [Mass/Vol] 3.44 mg/dL High 0.64-1.27 [facility] Comment on above: Performed By: #### S CAN CBC, [id number], FE and TIBC, MG, CMP ####[address] Creatinine Clr Calc Pharmacy 30.82 [facility] Comment on above: Performed By: #### S CAN CBC, [id number], FE and TIBC, MG, CMP ####[address] Estimated GFR ( Zakiya 22 [facility] Comment on above: Result Comment: GFR estimated reference range: According to KDOQI guidelines, <60 ml/min/1.73m2 is sufficient to diagnose a patient with chronic kidney disease. Performed By: #### S CAN CBC, [id number], FE and TIBC, MG, CMP ####[place] [id number] [place] [id number] [facility] Estimated GFR (Non- Am 18 [facility] Comment on above: Performed By: #### S CAN CBC, [id number], FE and TIBC, MG, CMP ####[place] [id number] Globulin (S) [Mass/Vol] 5.6 g/dL [facility] Comment on above: Performed By: #### S CAN CBC, [id number], FE and TIBC, MG, CMP ####[place] [id number] Glucose [Mass/Vol] 153 mg/dL High 70-100 [facility] Comment on above: Result Comment: [place] Glucose Reference Range is dependent on time and content of last meal. Glucose of more than 200 mg/dL in a nonstressed, ambulatory subject supports the diagnosis of Diabetes Mellitus. ADA recommended reference range Performed By: #### S CAN CBC, [id number], FE and TIBC, MG, CMP ####[address] Potassium [Moles/Vol] 4.4 mmol/L Normal 3.5-5.1 [facility] Comment on above: Performed By: #### S CAN CBC, [id number], FE and TIBC, MG, CMP ####[address] Protein [Mass/Vol] 7.9 g/dL Normal 6.1-7.9 [facility] Comment on above: Performed By: #### S CAN CBC, [id number], FE and TIBC, MG, CMP ####[address] Sodium [Moles/Vol] 132 mmol/L Low 136-146 [facility] Comment on above: Performed By: #### S CAN CBC, [id number], FE and TIBC, MG, CMP ####[facility] [place] [address] [facility] Urea nitrogen [Mass/Vol] 54 mg/dL High 9-23 [facility] Comment on above: Performed By: #### S CAN CBC, [id number], FE and TIBC, MG, CMP ####[facility] [id number] [place] [address] [facility] ECG 12 lead ECGon 11-16-2021 ECG [address] [facility] Folate [Mass/volume] in Seru m or PlasmaOrdered By: Julian De La Fuente on 11-16-2021 Folate [Mass/Vol] 7.4 ng/mL >5.9 [facility] Comment on above: Folate reference ran ge: >5.9 ng/ml The WHO technical consultation on folate and vitamin b12 deficiencies has determined that folate concentrations less than 4 ng/ml are considered deficient. Iron [Mass/volume] in Serum or PlasmaOrdered By: Julian De La Fuente on 11-16-2021 Iron [Mass/Vol] 15 ug/dL 40-160 [facility] Iron and TIBC Profileon 10-22 % Iron Saturation 4.0 % Low 20-50 [facility] Comment on above: Performed By: #### S CAN CBC, [id number], FE and TIBC, MG, CMP ####[facility] [place] [address] [facility] Iron [Mass/Vol] 15 ug/dL Low 40-160 [facility] Comment on above: Performed By: #### S CAN CBC, [id number], FE and TIBC, MG, CMP ####[facility] [id number] [place] [id number] [facility] Total Iron Binding Capacity 308 ug/dL Normal 255-450 [facility] Comment on above: Performed By: #### S CAN CBC, [id number], FE and TIBC, MG, CMP ####[facility] [id number] [place] [address] [facility] Transferrin [Mass/Vol] 220 mg/dL Normal 180-380 [facility] Comment on above: Performed By: #### S CAN CBC, [id number], FE and TIBC, MG, CMP ####[facility] [id number] [place] [id number] [facility] Iron binding capacity [Mass/ volume] in Serum or PlasmaOrdered By: Julian De La Fuente on 11-16-2021 Iron binding capacity [Mass/Vol] 308 ug/dL 255-450 [facility] Iron saturation [Mass Fracti on] in Serum or PlasmaOrdered By: Julian De La Fuente on 11-16-2021 Iron saturation [Mass fraction] 4.0 % 20-50 [facility] - Chemistry and C hemistry - challengeOrdered By: Julian De La Fuente on 11-16-2021 Cobalamin (Vitamin B12) [Mass/Vol] 2151 pg/mL 180-914 [facility] Magnesiumon 11-16-2021 Magnesium [Mass/Vol] 1.7 mg/dL Normal 1.6-2.6 [facility] Comment on above: Performed By: #### S CAN CBC, [id number], FE and TIBC, MG, CMP ####[facility] [id number] [place] [id number] [facility] No Panel InformationOrdered By: Julian De La Fuente on 11-16-[address] [facility] PROF CHEM 8 (BAS METB)on Anion gap [Moles/Vol] 14.9 mmol/L Normal [facility] Comment on above: Performed By: #### H STROPN, BNP, BMP #### [facility] [place] [facility] [address] [address] [address] Kerline Bush Calcium [Mass/Vol] 7.2 mg/dL Critically low 8.5-10.1 [facility] Comment on above: Performed By: #### H STROPN, BNP, BMP #### [facility] [place] [facility] [address] [address] [address] Kerline Bush Chloride [Moles/Vol] 100 mmol/L Normal 98-107 [facility] Comment on above: Performed By: #### H STROPN, BNP, BMP #### [facility] [place] [facility] [address] [address] [address] Kerline Bush CO2 [Moles/Vol] 24.7 mmol/L Normal 21.0-32.0 [facility] Comment on above: Performed By: #### H STROPN, BNP, BMP #### [facility] [place] [facility] [address] [address] [address] Kerline Bush Creatinine [Mass/Vol] 3.63 mg/dL Critically high 0.70-1.30 [facility] Comment on above: Performed By: #### H STROPN, BNP, BMP #### [facility] [place] [facility] [address] [place] [address] Dr. Kerline Bush EGFR-AF ROMANIAN 21 mL/min/1.73m2 Critically low >=60 [facility] Comment on above: Performed By: #### H STROPN, BNP, BMP #### [facility] [place] [facility] [address] [place] [address] Dr. Kerline Bush EGFR-NON AF ROMANIAN 17 mL/min/1.73m2 Critically low >=60 [facility] Comment on above: Performed By: #### H STROPN, BNP, BMP #### [facility] [place] [facility] [address] [place] [address] Dr. Kerline Bush Glucose [Mass/Vol] 226 mg/dL Critically high 74-106 [facility] Comment on above: Performed By: #### H STROPN, BNP, BMP #### [facility] [place] [facility] [address] [place] [address] Dr. Kerline Bush Potassium [Moles/Vol] 4.6 mmol/L Normal 3.5-5.1 [facility] Comment on above: Performed By: #### H STROPN, BNP, BMP #### [facility] [place] [facility] [address] [place] [address] Dr. Kerline Bush Sodium [Moles/Vol] 135 mmol/L Critically low 136-145 [facility] Comment on above: Performed By: #### H STROPN, BNP, BMP #### [facility] [place] [facility] [address] [place] [address] Dr. Kerline Bush Urea nitrogen [Mass/Vol] 50.0 mg/dL Critically high 7.0-18.0 [facility] Comment on above: Performed By: #### H STROPN, BNP, BMP #### [facility] [place] [facility] [address], [place] [address] Dr. Kerline Bush Urea nitrogen/Creatinine [Mass ratio] 13.8 mg/mg Normal [facility] Comment on above: Performed By: #### H STROPN, BNP, BMP #### [facility] [place] [facility] [address] [place], [place] [address] Dr. Kerline Bush Prothrombin Time INRon 11-16 INR Coag (PPP) [Relative time] 3.2 {INR} Normal [facility] Comment on above: Result Comment: INR Therapeutic Range A) Pre- and Peroperative OAT started two weeks before surgery. NOT HIP SURGERY: 1.5 - 2.5 HIP SURGERY: 2 - 3 B) Primary and secondary prevention of venous THROMBOSIS: 2 - 3 C) Active venous thrombosis, pulmonary embolism and prevention of recurrent venous thrombosis: 2 - 3 D) Prevention of arterial thromboembolism including patients with mechanical heart valves: 3 - 4.5PERFORMED BY:[address] [place], [place] [id number] MEDICAL DIRECTORISRAEL CHAN M.D. Performed By: #### P T ####[address] PT Coag (PPP) [Time] 36.4 s High 9.0-12.9 [facility] Comment on above: Performed By: #### P T ####[address] Scan and CBCon 11-16-2021 Anisocytosis Ql (Bld) Marked Normal [facility] Comment on above: Performed By: #### S CAN CBC, [id number], FE and TIBC, MG, CMP ####[address] Basophils (Bld) [#/Vol] 0.0 10*3/uL Normal 0.0-0.2 [facility] Comment on above: Performed By: #### S CAN CBC, [id number], FE and TIBC, MG, CMP ####[address] Basophils/100 WBC (Bld) 0.1 % Normal . [facility] Comment on above: Performed By: #### S CAN CBC, [id number], FE and TIBC, MG, CMP ####[address] Eosinophils (Bld) [#/Vol] 0.0 10*3/uL Normal 0.0-0.45 [facility] Comment on above: Performed By: #### S CAN CBC, [id number], FE and TIBC, MG, CMP ####[address] Eosinophils/100 WBC (Bld) 0.0 % Normal . [facility] Comment on above: Performed By: #### S CAN CBC, [id number], FE and TIBC, MG, CMP ####[address] Erythrocyte distribution width (RBC) [Ratio] 20.5 % High 12.0-14.8 [facility] Comment on above: Performed By: #### S CAN CBC, [id number], FE and TIBC, MG, CMP ####[address] Hematocrit (Bld) [Volume fraction] 26.0 % Low 38.8-50.0 [facility] Comment on above: Performed By: #### S CAN CBC, [id number], FE and TIBC, MG, CMP ####[address] Hemoglobin (Bld) [Mass/Vol] 8.3 g/dL Low 13.0-17.0 [facility] Comment on above: Performed By: #### S CAN CBC, [id number], FE and TIBC, MG, CMP ####[address] Hypochromasia Moderate Normal [facility] Comment on above: Performed By: #### S CAN CBC, [id number], FE and TIBC, MG, CMP ####[address] Lymphocytes (Bld) [#/Vol] 0.4 10*3/uL Low 1.00-4.8 [facility] Comment on above: Performed By: #### S CAN CBC, [id number], FE and TIBC, MG, CMP ####[address] Lymphocytes/100 WBC (Bld) 3.8 % Normal . [facility] Comment on above: Performed By: #### S CAN CBC, [id number], FE and TIBC, MG, CMP ####[address] MCH (RBC) [Entitic mass] 23.7 pg Low 27.5-35.2 [facility] Comment on above: Performed By: #### S CAN CBC, [id number], FE and TIBC, MG, CMP ####[address] MCV (RBC) [Entitic vol] 73.9 fL Low 83.5-101 [facility] Comment on above: Performed By: #### S CAN CBC, [id number], FE and TIBC, MG, CMP ####[address] Mean Corpuscular HGB Conc 32.1 g/dL Low 32.5-35.6 [facility] Comment on above: Performed By: #### S CAN CBC, [id number], FE and TIBC, MG, CMP ####[address] Monocytes (Bld) [#/Vol] 1.1 10*3/uL High 0.0-0.8 [facility] Comment on above: Performed By: #### S CAN CBC, [id number], FE and TIBC, MG, CMP ####[address] Monocytes/100 WBC (Bld) 11.4 % Normal . [facility] Comment on above: Performed By: #### S CAN CBC, [id number], FE and TIBC, MG, CMP ####[address] Neutrophils (Bld) [#/Vol] 8.1 10*3/uL High 1.8-7.7 [facility] Comment on above: Performed By: #### S CAN CBC, [id number], FE and TIBC, MG, CMP ####[address] Neutrophils/100 WBC (Bld) 84.7 % Normal . [facility] Comment on above: Performed By: #### S CAN CBC, [id number], FE and TIBC, MG, CMP ####[address] Nucleated RBC/100 WBC (Bld) [Ratio] 0.4 % Normal 0-0.5 [facility] Comment on above: Performed By: #### S CAN CBC, [id number], FE and TIBC, MG, CMP ####[place] [id number] [facility] Platelet Estimate Normal Normal Normal [facility] Comment on above: Performed By: #### S CAN CBC, [id number], FE and TIBC, MG, CMP ####[place] [id number] [facility] Platelet mean volume (Bld) [Entitic vol] 7.6 fL Normal 6.6-10.1 [facility] Comment on above: Performed By: #### S CAN CBC, [id number], FE and TIBC, MG, CMP ####[place] [id number] [facility] Platelet Morphology Normal Normal Normal [facility] Comment on above: Result Comment: PERF ORMED BY:[address] [place], [place] [phone] MEDICAL DIRECTORJIANLAN SUN M.D. Performed By: #### S CAN CBC, [id number], FE and TIBC, MG, CMP ####[address] Platelets (Bld) [#/Vol] 340 10*3/uL Normal 150-450 [facility] Comment on above: Performed By: #### S CAN CBC, [id number], FE and TIBC, MG, CMP ####[address] Poikilocytosis Moderate Normal [facility] Comment on above: Performed By: #### S CAN CBC, [id number], FE and TIBC, MG, CMP ####[address] RBC (Bld) [#/Vol] 3.52 10*6/uL Low 3.90-5.60 [facility] Comment on above: Performed By: #### S CAN CBC, [id number], FE and TIBC, MG, CMP ####[address] Schistocytes Slight Normal [facility] Comment on above: Performed By: #### S CAN CBC, [id number], FE and TIBC, MG, CMP ####[address] Target Cells Moderate Normal [facility] Comment on above: Performed By: #### S CAN CBC, [id number], FE and TIBC, MG, CMP ####[address] WBC (Bld) [#/Vol] 9.6 10*3/uL Normal 4.5-11.0 [facility] Comment on above: Performed By: #### S CAN CBC, [id number], FE and TIBC, MG, CMP ####[address] Troponin I High Sensitivityo n 11-16-2021 Troponin I High Sensitivity 11 pg/mL Normal 0-20 [facility] Comment on above: Result Comment: PERF ORMED BY:[address] [address] [place], [place] [id number] MEDICAL DIRECTORISRAEL CHAN M.D. Performed By: #### H S TROP ####[address] [address] [facility] Troponin I High Sensitivity 13 pg/mL Normal 0-20 [facility] Comment on above: Result Comment: PERF ORMED BY:[address] [address] [place], [place] [id number] MEDICAL DIRECTORISRAEL CHAN M.D. Performed By: #### H S TROP ####[address] [address] [facility] Troponin I.cardiac [Mass/vol ume] in Serum or Plasma by High sensitivity methodOrdered By: Julian De La Fuente on 11-16-2021 Troponin I.cardiac High sensitivity method [Mass/Vol] 14 pg/mL 0-20 [facility] Vit. B12/Folate Profileon Cobalamin (Vitamin B12) [Mass/Vol] 2151 pg/mL High 180-914 [facility] Comment on above: Performed By: #### S CAN CBC, [id number], FE and TIBC, MG, CMP ####[address] [address] [facility] Folate 7.4 ng/mL Normal >5.9 [facility] Comment on above: Result Comment: Holly te reference range: >5.9 ng/ml The WHO technical consultation on folate and vitamin b12 deficiencies has determined that folate concentrations less than 4 ng/ml are considered deficient.PERFORMED BY:[address] [address] [place], [place] [id number] MEDICAL DIRECTORISRAEL CHAN M.D. Performed By: #### S CAN CBC, [id number], FE and TIBC, MG, CMP ####[address] [address] [facility] XR chest 1V portableon 04-27 -2022 XR chest 1V portable Normal [facility] BNPon 11-15-2021 Natriuretic peptide B (Bld) [Mass/Vol] 43700.0 pg/mL Critically high <=900.0 [facility] [place] [facility] Comment on above: Result Comment: TEST REPEATED CRITICAL VALUE VERIFIED Performed By: #### H STROPN, BNP, BMP #### [facility] [place] [facility] [address] [address] [address] Kerline Bush CBC AUTO DIFFon 11-15-2021 BASO # 0.1 103/ul Normal 0.0-0.1 [facility] Comment on above: Performed By: #### C BC #### [facility] [place] [facility] [address] [address] [address] Kerline Bush Basophils/100 WBC (Bld) 1.0 % Normal 0.2-2.0 [facility] Comment on above: Performed By: #### C BC #### [facility] [place] [facility] [address] [place] [address] Dr. Kerline Bush EO # 0.1 103/ul Normal 0.0-0.7 [facility] Comment on above: Performed By: #### C BC #### [facility] [place] [facility] [address] [address] [address] Kerline Bush Eosinophils/100 WBC (Bld) 1.0 % Normal 0.9-7.0 [facility] Comment on above: Performed By: #### C BC #### [facility] [place] [facility] [address] [place] [address] Dr. Kerline Bush Erythrocyte distribution width (RBC) [Ratio] 19.8 % Critically high 11.0-15.0 [facility] Comment on above: Performed By: #### C BC #### [facility] [place] [facility] [address] [place] [address] Dr. Kerline Bush Hematocrit (Bld) [Volume fraction] 23.3 % Critically low 42.0-54.0 [facility] Comment on above: Performed By: #### C BC #### [facility] [place] [facility] [address] [place] [address] Dr. Kerline Bush Hemoglobin (Bld) [Mass/Vol] 7.3 g/dL Critically low 14.0-18.0 [facility] Comment on above: Performed By: #### C BC #### [facility] [place] [facility] [address] [address] [address] Kerline Bush IG # 0.02 10e3/ul Normal 0.00-0.03 [facility] Comment on above: Performed By: #### C BC #### [facility] [place] [facility] [address] [address] [address] Kerline Bush IG % 0.3 % Normal 0.0-0.5 [facility] Comment on above: Performed By: #### C BC #### [facility] [place] [facility] [address] [address] [address] Kerline Bush LYMPH # 0.8 103/ul Critically low 1.2-3.8 [facility] Comment on above: Performed By: #### C BC #### [facility] [place] [facility] [address] [place] [address] Dr. Kerline Bush Lymphocytes/100 WBC (Bld) 12.4 % Critically low 20.5-60.0 [facility] Comment on above: Performed By: #### C BC #### [facility] [place] [facility] [address] [address] [address] Kerline Bush MANUAL DIFF REQ NO Normal [facility] Comment on above: Performed By: #### C BC #### [facility] [place] [facility] [address] [address] [address] Kerline Bush MCH (RBC) [Entitic mass] 22.7 pg Critically low 25.9-34.0 [facility] Comment on above: Performed By: #### C BC #### [facility] [place] [facility] [address] [address] [address] Kerline Bush MCHC (RBC) [Mass/Vol] 31.3 g/dL Normal 29.9-35.2 [facility] Comment on above: Performed By: #### C BC #### [facility] [place] [facility] [address] [place] [address] Dr. Kerline Bush MCV (RBC) [Entitic vol] 72.4 fL Critically low 80.0-94.0 [facility] Comment on above: Performed By: #### C BC #### [facility] [place] [facility] [address] [address] [address] Kerline Bush MONO # 0.6 103/ul Normal 0.3-0.8 [facility] [place] [facility] Comment on above: Performed By: #### C BC #### [facility] [place] [facility] [address] [address] [address] Kerline Bush Monocytes/100 WBC (Bld) 9.0 % Normal 1.7-12.0 [facility] Comment on above: Performed By: #### C BC #### [facility] [place] [facility] [address] [address] [address] Kerline Bush NEUT # 4.8 103/ul Normal 1.4-6.5 [facility] Comment on above: Performed By: #### C BC #### [facility] [place] [facility] [address] [place] [address] Dr. Kerline Bush Neutrophils/100 WBC (Bld) 76.3 % Critically high 43.0-75.0 [facility] Comment on above: Performed By: #### C BC #### [facility] [place] [facility] [address] [address] [address] Kerline Bush Platelet mean volume (Bld) [Entitic vol] 9.6 fL Normal 9.5-13.5 [facility] Comment on above: Performed By: #### C BC #### [facility] [place] [facility] [address] [address] [address] Kerline Bush PLT 376 103/ul Normal 150-450 [facility] [place] [facility] Comment on above: Performed By: #### C BC #### [facility] [place] [facility] [address] [address] [address] Kerline Bush RBC 3.22 106/ul Critically low 4.70-6.[address] [facility] Comment on above: Performed By: #### C BC #### [facility] [place] [facility] [address] [address] [address] Kerline Bush WBC 6.2 103/ul Normal 4.0-11.0 [facility] [place] [facility] Comment on above: Performed By: #### C BC #### [facility] [place] [facility] [address] [place], [place] [address] Dr. Kerline Bush Covid-19 PCR (CVDTB)on 10-22 SARS-CoV-2 (COVID-19) RNA [place]ISE+probe Ql (Unsp spec) Not detected Normal NOT DETECTED [facility] [place] [facility] Comment on above: Result Comment: When diagnostic testing is negative, the possibility of a false negative should be considered in the context of a patient's recent exposures and the presence of clinical signs and symptoms consistent with SARS-CoV-2. This test is not yet approved or cleared by the [place] Food and Drug Administration (FDA). This test was developed by [employer], [place], [place]. The performance characteristics of this test were validated by [facility] [place] [facility]. The results are not intended to be used as the sole means for clinical diagnosis or patient management decisions. [facility] [place] [facility] is authorized under Clinical Laboratory Improvement Amendments (CLIA) to perform high- complexity testing. This test is not yet approved or cleared by the [place] FDA. When there are no FDA-approved or cleared tests available, and other criteria are met, FDA can make tests available under an emergency access mechanism called an Emergency Use Authorization (EUA). The EUA for this test is supported by the Nurse Licensed Practical of Health and Human Service's declaration that circumstances exist to justify the emergency use of in vitro diagnostics for the detection and/or diagnosis of the virus that causes COVID-19. This EUA will remain in effect for the duration of the COVID-19 declaration justifying emergency of IVDs, unless it is terminated or revoked by the FDA (after which the test may no longer be used). Performed By: #### U MICRO, ERUR #### [facility] [place] [facility] [address], [place] [address] Dr. Kerline Bush PROF CHEM 8 (BAS METB)on Anion gap [Moles/Vol] 12.1 mmol/L Normal [facility] [place] [facility] Comment on above: Performed By: #### H STROPN, BNP, BMP #### [facility] [place] [facility] [address], [place] [address] Dr. Kerline Bush Calcium [Mass/Vol] 7.7 mg/dL Critically low 8.5-10.1 [facility] [place] [facility] Comment on above: Performed By: #### H STROPN, BNP, BMP #### [facility] [place] [facility] [address] [place] [address] [address] Kerline Bush Chloride [Moles/Vol] 102 mmol/L Normal 98-107 [facility] Comment on above: Performed By: #### H STROPN, BNP, BMP #### [facility] [place] [facility] [address] [address] [address] Kerline Bush CO2 [Moles/Vol] 26.7 mmol/L Normal 21.0-32.0 [facility] Comment on above: Performed By: #### H STROPN, BNP, BMP #### [facility] [place] [facility] [address] [address] [address] Kerline Bush Creatinine [Mass/Vol] 3.17 mg/dL Critically high 0.70-1.30 [facility] Comment on above: Performed By: #### H STROPN, BNP, BMP #### [facility] [place] [facility] [address] [address] [address] Kerline Bush EGFR-AF ROMANIAN 24 mL/min/1.73m2 Critically low >=60 [facility] Comment on above: Performed By: #### H STROPN, BNP, BMP #### [facility] [place] [facility] [address] [place] [address] Dr. Kerline Bush EGFR-NON AF ROMANIAN 20 mL/min/1.73m2 Critically low >=60 [facility] Comment on above: Performed By: #### H STROPN, BNP, BMP #### [facility] [place] [facility] [address] [address] [address] Kerline Bush Glucose [Mass/Vol] 82 mg/dL Normal 74-106 [facility] Comment on above: Performed By: #### H STROPN, BNP, BMP #### [facility] [place] [facility] [address] [address] [address] Kerline Bush Potassium [Moles/Vol] 4.8 mmol/L Normal 3.5-5.1 [facility] Comment on above: Performed By: #### H STROPN, BNP, BMP #### [facility] [place] [facility] [address] [address] [address] Kerline Bush Sodium [Moles/Vol] 136 mmol/L Normal 136-145 [facility] [place] [facility] Comment on above: Performed By: #### H STROJANIS, BNP, BMP #### [facility] [place] [facility] [address] [place] [address] Dr. Kerline Bush Urea nitrogen [Mass/Vol] 42.0 mg/dL Critically high 7.0-18.0 [facility] Comment on above: Performed By: #### H STROPN, BNP, BMP #### [facility] [place] [facility] [address] [place] [address] Dr. Kerline Bush Urea nitrogen/Creatinine [Mass ratio] 13.2 mg/mg Normal [facility] [place] [facility] Comment on above: Performed By: #### H FERNIE, BNP, BMP #### [facility] [place] [facility] [address] [place] [address] Dr. Kerline Bush PROTIMEon 11-15-2021 INR Coag (PPP) [Relative time] 1.64 {INR} Normal [facility] Comment on above: Performed By: #### H STROJANIS, BNP, BMP #### [facility] [place] [facility] [address] [place] [address] Dr. Kerline Bush INR GUIDELINES SEE BELOW Normal [facility] Comment on above: Result Comment: ARIANNA RED INR: 2.0 - 3.0 CONDITIONS NOT LISTED BELOW 2.5 - 3.5 FOR PROSTHETIC HEART VALVE REPLACEMENT 2.5 - 3.5 RECURRENT THROMBOSIS Performed By: #### H STROJANIS, BNP, BMP #### [facility] [place] [facility] [address] [place] [address] Dr. Kerline Bush PT Coag (PPP) [Time] 17.1 s Critically high 9.0-11.6 [facility] [place] [facility] Comment on above: Performed By: #### H STROPN, BNP, BMP #### [facility] [place] [facility] [address] [place] [address] Dr. Kerline Bush PTTon 11-15-2021 aPTT Coag (Bld) [Time] 33.4 s Normal 22.3-36.2 [facility] Comment on above: Performed By: #### H STROPN, BNP, BMP #### [facility] [place] [facility] [address], [place] [address] Dr. Kerline Bush TROPONIN, HIGH SENSITIVITYon 11-15-2021 HSTROP 17.3 pg/mL Normal 4.0-76.1 [facility] Comment on above: Result Comment: CUT- OFF POINTS HAVE BEEN ESTABLISHED BASED ON THE FOURTH UNIVERSAL DEFINITIONS OF MYOCARDIAL INFARCTION. THE UPPER REFERENCE LIMIT (URL) OF TROPONIN, DEFINED THE 99TH PERCENTILE OF cTnI DISTRIBUTION IN A REFERENCE POPULATION, HAS BEEN CONFIRMED THE DECISION THRESHOLD FOR NE DIAGNOSIS. Performed By: #### H STROPN, BNP, BMP #### [facility] [place] [facility] [address], [place] [address] Dr. Kerline Bush TYPE AND SCREENon 11-15-2021 TYPE AND SCREEN Negative Normal [facility] Comment on above: Performed By: #### U MICRO, ERUR #### [facility] [place] [facility] [address] [address] [address] Kerline Bush XR CHEST 1 Von 11-15-2021 XR CHEST 1 V EXAMINATION: XR CHES T 1 V HISTORY: SHORTNESS OF BREATH COMPARISON: 09/27/2020 TECHNIQUE: AP portable erect FINDINGS: LUNGS: Mild right and moderate left basilar opacity VASCULATURE: Mildly increased pulmonary vasculature. PLEURA: No pneumothorax, effusion, or pleural thickening. CARDIAC: Marked cardiomegaly MEDIASTINUM: No visible mass or adenopathy. BONES: No fracture or visible bone lesion. OTHER: Negative. IMPRESSION: Cardiomegaly Bibasilar infiltrates left greater than right. Atelectasis versus pulmonary edema Electronically authenticated by: BETTYE ADAME Date: 2021-11-15 14:38 Normal [facility] [place] [facility] Dipstick and Microscopicon 0 11-01-2021 Appearance (U) Clear Normal Clear [facility] Comment on above: Order Comment: Reaso n for Exam CKD (chronic kidney disease) stage 4, GFR 15-29 ml/min;Diabe Name Collection Type:: Clean-Voided Midstream Performed By: #### A DDONUAPLUS ####[facility] [id number] [place] [address] [facility] Bacteria,Urine None Seen Normal None Seen [facility] Comment on above: Order Comment: Reaso n for Exam CKD (chronic kidney disease) stage 4, GFR 15-29 ml/min;Diabe Name Collection Type:: Clean-Voided Midstream Performed By: #### A DDONUAPLUS ####[id number] [place] [address] [place] Bilirubin,Urine Negative Normal Negative [facility] Comment on above: Order Comment: Reaso n for Exam CKD (chronic kidney disease) stage 4, GFR 15-29 ml/min;Diabe Name Collection Type:: Clean-Voided Midstream Performed By: #### A DDONUAPLUS ####[address] [address] [facility] Color (U) Yellow Normal Yellow [facility] Comment on above: Order Comment: Reaso n for Exam CKD (chronic kidney disease) stage 4, GFR 15-29 ml/min;Diabe Name Collection Type:: Clean-Voided Midstream Performed By: #### A DDONUAPLUS ####[address] [address] [facility] Glucose Ql (U) Normal Normal Normal [facility] Comment on above: Order Comment: Reaso n for Exam CKD (chronic kidney disease) stage 4, GFR 15-29 ml/min;Diabe Name Collection Type:: Clean-Voided Midstream Performed By: #### A DDONUAPLUS ####[address] [address] [facility] Hyaline Casts,Urine None Seen Normal 0-8 [facility] Comment on above: Order Comment: Reaso n for Exam CKD (chronic kidney disease) stage 4, GFR 15-29 ml/min;Diabe Name Collection Type:: Clean-Voided Midstream Result Comment: PERF ORMED BY:[address] [place], [place] [phone] MEDICAL DIRECTORISRAEL CHAN M.D. Performed By: #### A DDONUAPLUS ####[address] [address] [facility] Ketones Ql (U) Negative Normal Negative [facility] Comment on above: Order Comment: Reaso n for Exam CKD (chronic kidney disease) stage 4, GFR 15-29 ml/min;Diabe Name Collection Type:: Clean-Voided Midstream Performed By: #### A DDONUAPLUS ####[place] [id number] [facility] Leukocyte esterase Test strip Ql (U) Negative Normal Negative [facility] Comment on above: Order Comment: Reaso n for Exam CKD (chronic kidney disease) stage 4, GFR 15-29 ml/min;Diabe Name Collection Type:: Clean-Voided Midstream Performed By: #### A DDONUAPLUS ####[address] Nitrite,Urine Negative Normal Negative [facility] Comment on above: Order Comment: Reaso n for Exam CKD (chronic kidney disease) stage 4, GFR 15-29 ml/min;Diabe Name Collection Type:: Clean-Voided Midstream Performed By: #### A DDONUAPLUS ####[address] Occult Blood,Urine Negative Normal Negative [facility] Comment on above: Order Comment: Reaso n for Exam CKD (chronic kidney disease) stage 4, GFR 15-29 ml/min;Diabe Name Collection Type:: Clean-Voided Midstream Performed By: #### A DDONUAPLUS ####[place] [id number] [facility] pH (U) 8.5 [pH] Normal 5.0-9.0 [facility] Comment on above: Order Comment: Reaso n for Exam CKD (chronic kidney disease) stage 4, GFR 15-29 ml/min;Diabe Name Collection Type:: Clean-Voided Midstream Performed By: #### A DDONUAPLUS ####[place] [id number] [facility] Protein (U) [Mass/Vol] 100 mg/dL High Negative [facility] Comment on above: Order Comment: Reaso n for Exam CKD (chronic kidney disease) stage 4, GFR 15-29 ml/min;Diabe Name Collection Type:: Clean-Voided Midstream Performed By: #### A DDONUAPLUS ####[address] RBC,Urine 5-9 High 0-4 [facility] Comment on above: Order Comment: Reaso n for Exam CKD (chronic kidney disease) stage 4, GFR 15-29 ml/min;Diabe Name Collection Type:: Clean-Voided Midstream Performed By: #### A DDONUAPLUS ####[address] Specificy [place],Urine 1.012 Normal 1.001-1.030 [facility] Comment on above: Order Comment: Reaso n for Exam CKD (chronic kidney disease) stage 4, GFR 15-29 ml/min;Diabe Name Collection Type:: Clean-Voided Midstream Performed By: #### A DDONUAPLUS ####[address] Squamous Epithelial Cell,Urine None Seen Normal 0-2 [facility] Comment on above: Order Comment: Reaso n for Exam CKD (chronic kidney disease) stage 4, GFR 15-29 ml/min;Diabe Name Collection Type:: Clean-Voided Midstream Performed By: #### A DDONUAPLUS ####[address] Urobilinogen,Urine Normal Normal Normal [facility] Comment on above: Order Comment: Reaso n for Exam CKD (chronic kidney disease) stage 4, GFR 15-29 ml/min;Diabe Name Collection Type:: Clean-Voided Midstream Performed By: #### A DDONUAPLUS ####[place] [id number] [facility] WBC LM.HPF (Urine sed) [#/Area] 0 /[HPF] Normal 0-4 [facility] Comment on above: Order Comment: Reaso n for Exam CKD (chronic kidney disease) stage 4, GFR 15-29 ml/min;Diabe Name Collection Type:: Clean-Voided Midstream Performed By: #### A DDONUAPLUS ####[address] [id number] [facility] Ferritinon 11-01-2021 Ferritin [Mass/Vol] 9.9 ng/mL Low 23.9-336.2 [facility] Comment on above: Order Comment: Reaso n for Exam CKD (chronic kidney disease) stage 4, GFR 15-29 ml/min;Diabe Performed By: #### P TH, MARCELO, FE and TIBC, MG, RENAL ####[address] Hemogram CBC Without Diffon 11-01-2021 Erythrocyte distribution width (RBC) [Ratio] 19.0 % High 12.0-14.8 [facility] Comment on above: Order Comment: Reaso n for Exam CKD (chronic kidney disease) stage 4, GFR 15-29 ml/min;Diabe Performed By: #### C BCNO ####[address] Hematocrit (Bld) [Volume fraction] 22.5 % Low 38.8-50.0 [facility] Comment on above: Order Comment: Reaso n for Exam CKD (chronic kidney disease) stage 4, GFR 15-29 ml/min;Diabe Performed By: #### C BCNO ####[address] Hemoglobin (Bld) [Mass/Vol] 7.3 g/dL Low 13.0-17.0 [facility] Comment on above: Order Comment: Reaso n for Exam CKD (chronic kidney disease) stage 4, GFR 15-29 ml/min;Diabe Performed By: #### C BCNO ####[place] [id number] [facility] MCH (RBC) [Entitic mass] 24.8 pg Low 27.5-35.2 [facility] Comment on above: Order Comment: Reaso n for Exam CKD (chronic kidney disease) stage 4, GFR 15-29 ml/min;Diabe Performed By: #### C BCNO ####[place] [id number] [facility] MCV (RBC) [Entitic vol] 76.9 fL Low 83.5-101 [facility] Comment on above: Order Comment: Reaso n for Exam CKD (chronic kidney disease) stage 4, GFR 15-29 ml/min;Diabe Performed By: #### C BCNO ####[address] [id number] [facility] Mean Corpuscular HGB Conc 32.3 g/dL Low 32.5-35.6 [facility] Comment on above: Order Comment: Reaso n for Exam CKD (chronic kidney disease) stage 4, GFR 15-29 ml/min;Diabe Performed By: #### C BCNO ####[address] [address] [facility] Platelet mean volume (Bld) [Entitic vol] 7.2 fL Normal 6.6-10.1 [facility] Comment on above: Order Comment: Reaso n for Exam CKD (chronic kidney disease) stage 4, GFR 15-29 ml/min;Diabe Result Comment: PERF ORMED BY:[address] [place], [place] [phone] MEDICAL DIRECTORISRAEL CHAN M.D. Performed By: #### C BCNO ####[place] [id number] [facility] Platelets (Bld) [#/Vol] 370 10*3/uL Normal 150-450 [facility] Comment on above: Order Comment: Reaso n for Exam CKD (chronic kidney disease) stage 4, GFR 15-29 ml/min;Diabe Performed By: #### C BCNO ####[address] [id number] [facility] RBC (Bld) [#/Vol] 2.93 10*6/uL Low 3.90-5.60 [facility] Comment on above: Order Comment: Reaso n for Exam CKD (chronic kidney disease) stage 4, GFR 15-29 ml/min;Diabe Performed By: #### C BCNO ####[address] [id number] [facility] WBC (Bld) [#/Vol] 6.3 10*3/uL Normal 4.1-10.5 [facility] Comment on above: Order Comment: Reaso n for Exam CKD (chronic kidney disease) stage 4, GFR 15-29 ml/min;Diabe Performed By: #### C BCNO ####[address] [id number] [facility] Iron and TIBC Profileon 10-21 % Iron Saturation 4.0 % Low 20-50 [facility] Comment on above: Order Comment: Reaso n for Exam CKD (chronic kidney disease) stage 4, GFR 15-29 ml/min;Diabe Performed By: #### P TH, MARCELO, FE and TIBC, MG, RENAL ####[address] [address] [facility] Iron [Mass/Vol] 15 ug/dL Low 40-160 [facility] Comment on above: Order Comment: Reaso n for Exam CKD (chronic kidney disease) stage 4, GFR 15-29 ml/min;Diabe Performed By: #### P TH, MARCELO, FE and TIBC, MG, RENAL ####[address] [id number] [facility] Total Iron Binding Capacity 329 ug/dL Normal 255-450 [facility] Comment on above: Order Comment: Reaso n for Exam CKD (chronic kidney disease) stage 4, GFR 15-29 ml/min;Diabe Performed By: #### P TH, MARCELO, FE and TIBC, MG, RENAL ####[id number] [facility] Transferrin [Mass/Vol] 235 mg/dL Normal 180-380 [facility] Comment on above: Order Comment: Reaso n for Exam CKD (chronic kidney disease) stage 4, GFR 15-29 ml/min;Diabe Performed By: #### P TH, MARCELO, FE and TIBC, MG, RENAL ####[address] [address] [facility] Magnesiumon 11-01-2021 Magnesium [Mass/Vol] 1.7 mg/dL Normal 1.6-2.6 [facility] Comment on above: Order Comment: Reaso n for Exam CKD (chronic kidney disease) stage 4, GFR 15-29 ml/min;Diabe Performed By: #### P TH, MARCELO, FE and TIBC, MG, RENAL ####[address] [address] [facility] Parathyroid Hormone Intacton 11-01-2021 Parathyroid Hormone Intact 531.4 pg/mL High 12-88 [facility] Comment on above: Order Comment: Reaso n for Exam CKD (chronic kidney disease) stage 4, GFR 15-29 ml/min;Diabe Result Comment: PERF ORMED BY:[address] [place], [place] [phone] MEDICAL DIRECTORISRAEL CHAN M.D. Performed By: #### P TH, MARCELO, FE and TIBC, MG, RENAL ####[address] Renal Function Panelon 11-01 Albumin [Mass/Vol] 2.5 g/dL Low 3.2-5.5 [facility] Comment on above: Order Comment: Reaso n for Exam CKD (chronic kidney disease) stage 4, GFR 15-29 ml/min;Diabe Performed By: #### P TH, MARCELO, FE and TIBC, MG, RENAL ####[address] Calcium [Mass/Vol] 7.8 mg/dL Low 8.2-10.2 [facility] Comment on above: Order Comment: Reaso n for Exam CKD (chronic kidney disease) stage 4, GFR 15-29 ml/min;Diabe Performed By: #### P TH, MARCELO, FE and TIBC, MG, RENAL ####[place] [id number] [facility] Chloride [Moles/Vol] 104 mmol/L Normal 95-114 [facility] Comment on above: Order Comment: Reaso n for Exam CKD (chronic kidney disease) stage 4, GFR 15-29 ml/min;Diabe Performed By: #### P TH, MARCELO, FE and TIBC, MG, RENAL ####[address] [place] [id number] [facility] CO2 [Moles/Vol] 24.1 mmol/L Normal 22.0-30.0 [facility] Comment on above: Order Comment: Reaso n for Exam CKD (chronic kidney disease) stage 4, GFR 15-29 ml/min;Diabe Performed By: #### P TH, MARCELO, FE and TIBC, MG, RENAL ####[id number] [place] [id number] [facility] Creatinine [Mass/Vol] 3.42 mg/dL High 0.64-1.27 [facility] Comment on above: Order Comment: Reaso n for Exam CKD (chronic kidney disease) stage 4, GFR 15-29 ml/min;Diabe Performed By: #### P TH, MARCELO, FE and TIBC, MG, RENAL ####[address] [place] [id number] Estimated GFR ( Zakiya [address] [facility] Comment on above: Order Comment: Reaso n for Exam CKD (chronic kidney disease) stage 4, GFR 15-29 ml/min;Diabe Result Comment: GFR estimated reference range: According to KDOQI guidelines, <60 ml/min/1.73m2 is sufficient to diagnose a patient with chronic kidney disease. Performed By: #### P TH, MARCELO, FE and TIBC, MG, RENAL ####[id number] [place] [id number] [facility] Estimated GFR (Non- Am [address] [facility] Comment on above: Order Comment: Reaso n for Exam CKD (chronic kidney disease) stage 4, GFR 15-29 ml/min;Diabe Performed By: #### P TH, MARCELO, FE and TIBC, MG, RENAL ####[id number] [place] [id number] [facility] Glucose [Mass/Vol] 81 mg/dL Normal 70-100 [facility] Comment on above: Order Comment: Reaso n for Exam CKD (chronic kidney disease) stage 4, GFR 15-29 ml/min;Diabe Result Comment: [place] om Glucose Reference Range is dependent on time and content of last meal. Glucose of more than 200 mg/dL in a nonstressed, ambulatory subject supports the diagnosis of Diabetes Mellitus. ADA recommended reference range Performed By: #### P TH, MARCELO, FE and TIBC, MG, RENAL ####[address] [id number] [facility] Phosphate [Mass/Vol] 4.3 mg/dL Normal 2.5-4.6 [facility] Comment on above: Order Comment: Reaso n for Exam CKD (chronic kidney disease) stage 4, GFR 15-29 ml/min;Diabe Performed By: #### P TH, MARCELO, FE and TIBC, MG, RENAL ####[id number] [facility] Potassium [Moles/Vol] 5.3 mmol/L High 3.5-5.1 [facility] Comment on above: Order Comment: Reaso n for Exam CKD (chronic kidney disease) stage 4, GFR 15-29 ml/min;Diabe Performed By: #### P TH, MARCELO, FE and TIBC, MG, RENAL ####[address] Sodium [Moles/Vol] 137 mmol/L Normal 136-146 [facility] Comment on above: Order Comment: Reaso n for Exam CKD (chronic kidney disease) stage 4, GFR 15-29 ml/min;Diabe Performed By: #### P TH, MARCELO, FE and TIBC, MG, RENAL ####[id number] [facility] Urea nitrogen [Mass/Vol] 40 mg/dL High 9-23 [facility] Comment on above: Order Comment: Reaso n for Exam CKD (chronic kidney disease) stage 4, GFR 15-29 ml/min;Diabe Performed By: #### P TH, MARCELO, FE and TIBC, MG, RENAL ####[place] [id number] [facility] COAGULATIONOrdered By: Jacqueline Jessica on 09-16-2021 INR Coag (PPP) [Relative time] 4.8 {INR} Invalid Interpretation Code [facility] Coag PT Coag (PPP) [Time] 57.2 s High 10.2 - 12.9 second(s) [facility] [facility] - Chemistry and C hemistry - challengeon 05-03-2021 Anion gap [Moles/Vol] 15 mmol/L 10 - 20 CE-Rnnadpa-Tx aide [place] Work Phone: Calcium [Mass/Vol] 8.3 mg/dL below low threshold 8.6 - 10.6 GO-Ashrlms-Oe aide [place] Work Phone: Chloride [Moles/Vol] 103 mmol/L 98 - 107 MG-U rology-Ce aide [place] Work Phone: CO2 [Moles/Vol] 20 mmol/L below low threshold 21 - 32 MY-Zmwtgal-St aide [place] Work Phone: Creatinine [Mass/Vol] 4.79 mg/dL above high threshold See Below FD-Hbugfys-Fh aide [place] Work Phone: Comment on above: Reference Range: 0.5 0 - 1.30 Glucose [Mass/Vol] 131 mg/dL above high threshold 74 - 99 KT-Dczkzzy-Rd aide [place] Work Phone: Potassium [Moles/Vol] 5.0 mmol/L 3.5 - 5.3 IN-Iajbgdd-Ja aide [place] Work Phone: Sodium [Moles/Vol] 133 mmol/L below low threshold 136 - 145 EK-Ppejbjy-Cb aide [place] Work Phone: Urea nitrogen [Mass/Vol] 66 mg/dL above high threshold 6 - 23 OB-Lrcdwfl-Qv aide [place] Work Phone: Laboratory - Coagulationon 1 INR Coag (PPP) [Relative time] 1.4 {INR} above high threshold 0.9 - 1.1 KR-Blieaua-Hn aide [place] Work Phone: PT Coag (PPP) [Time] 16.7 s above high threshold See Below ES-Zcxuyug-Oo aide [place] Work Phone: Comment on above: Reference Range: 10. 1 - 13.3 Laboratory - Hematology and Cell countson 05-03-2021 Erythrocyte distribution width (RBC) [Ratio] 16.3 % above high threshold See Below UM-Zugkjih-Nu NPM [place] Work Phone: Comment on above: Reference Range: 11. 5 - 14.5 Hematocrit (Bld) [Volume fraction] 28.0 % below low threshold See Below TM-Imdgyyj-Ma [employer] Work Phone: Comment on above: Reference Range: 41. 0 - 52.0 Hemoglobin (Bld) [Mass/Vol] 9.2 g/dL below low threshold See Below NZ-Gwvtqgs-Qn NPM [place] Work Phone: Comment on above: Reference Range: 13. 5 - 17.5 MCHC (RBC) [Mass/Vol] 32.9 g/dL See Below SG-Tswmitg-Xq NPM [place] Work Phone: Comment on above: Reference Range: 32. 0 - 36.0 MCV (RBC) [Entitic vol] 86 fL 80 - 100 CM-Lvzvnms-Hb [employer] Work Phone: Platelets (Bld) [#/Vol] 262 10*3/uL 150 - 450 BM-Ztgemuj-Mg [employer] Work Phone: RBC (Bld) [#/Vol] 3.25 {x10E12/L} below low threshold See Below ZO-Dodvwup-Xv [employer] Work Phone: Comment on above: Reference Range: 4.5 0 - 5.90 WBC (Bld) [#/Vol] 9.1 10*3/uL 4.4 - 11.3 MG-Uro logy-Ce [employer] Work Phone: No Panel Informationon 05-03 16 {mL/min/1.73m2} Abnormal >60 MG-Uro logy-Ce [employer] Work Phone: Comment on above: CALCULATIONS OF FABIO MATED GFR ARE PERFORMED USING THE MDRD STUDY EQUATION FOR THE IDMS-TRACEABLE CREATININE METHODS. CLIN CHEM 2007;53:[id number] 13 {mL/min/1.73m2} Abnormal >60 MG-Uro logy-Ce aide [place] Work Phone: 0.3 {/100_WBC} 0.0-0.0 MG-Urology -Ce aide [place] Work Phone: Renal Function Panelon 05-03 Albumin BCP dye [Mass/Vol] 2.7 g/dL below low threshold 3.4 - 5.0 CP-Hyoouim-Yd aide [place] Work Phone: Anion gap [Moles/Vol] 13 mmol/L 10 - 20 ES-Efipaeu-Xr aide [place] Work Phone: Calcium [Mass/Vol] 7.8 mg/dL below low threshold 8.6 - 10.6 WW-Bjhkqwq-Hd aide [place] Work Phone: Chloride [Moles/Vol] 104 mmol/L 98 - 107 MG-U rology-Ce aide [place] Work Phone: CO2 [Moles/Vol] 21 mmol/L 21 - 32 MG-Urolog y-Ce aide [place] Work Phone: Creatinine [Mass/Vol] 5.05 mg/dL above high threshold See Below AV-Laykubx-Le aide [place] Work Phone: Comment on above: Reference Range: 0.5 0 - 1.30 Glucose [Mass/Vol] 92 mg/dL 74 - 99 MG-Uro logy-Ce aide [place] Work Phone: Phosphate [Mass/Vol] 3.8 mg/dL 2.5 - 4.9 MG-U rology-Ce aide [place] Work Phone: Comment on above: The performance bren acteristics of phosphorus testing in heparinized plasma have been validated by the individual laboratory site where testing is performed. Testing on heparinized plasma is not approved by the FDA; however, such approval is not necessary. Potassium [Moles/Vol] 5.4 mmol/L above high threshold 3.5 - 5.3 UC-Ejrxnlg-Jf aide [place] Work Phone: Sodium [Moles/Vol] 133 mmol/L below low threshold 136 - 145 IL-Lveskxb-Qf NPM [place] Work Phone: Urea nitrogen [Mass/Vol] 63 mg/dL above high threshold 6 - 23 MM-Spogmwq-Sq aide [place] Work Phone: Renal Function Panel 15 {mL/min/1.73m2} Abnormal >60 EW-Xcrrmhv-Uu NPM [place] Work Phone: Comment on above: CALCULATIONS OF FABIO MATED GFR ARE PERFORMED USING THE MDRD STUDY EQUATION FOR THE IDMS-TRACEABLE CREATININE METHODS. CLIN CHEM 2007;53:766-72 Renal Function Panel 12 {mL/min/1.73m2} Abnormal >60 OT-Qgvnver-Dy [employer] Work Phone: Vancomycin Level, Randomon 1 Vancomycin [Mass/Vol] 24.1 ug/mL XQ-Xodpyar-Hu [employer] Work Phone: Comment on above: .Therapeutic Ranges: Peak: All ages: 30.0-40.0 ug/mL. Trough: Age <18y: 5.0-10.0 ug/mL. Age >/= 18y: 5.0-20.0 ug/mL. Vancomycin trough concentrations drawn immediately prior to the next dose at steady-state are preferred for monitoring patients treated with vancomycin. Ref.: Am J Health-Syst Pharm 66: 83-98, 2009. Laboratory - Chemistry and C hemistry - challengeon 05-02-2021 Anion gap [Moles/Vol] 11 mmol/L 10 - 20 EU-Ffozffy-Fu NPM [place] Work Phone: Calcium [Mass/Vol] 8.0 mg/dL below low threshold 8.6 - 10.6 RK-Wszikjo-Ye [employer] Work Phone: Chloride [Moles/Vol] 102 mmol/L 98 - 107 MG-U rology-Ce [employer] Work Phone: CO2 [Moles/Vol] 23 mmol/L 21 - 32 MG-Urolog y-Ce [employer] Work Phone: Creatinine [Mass/Vol] 4.85 mg/dL above high threshold See Below AB-Swwrjpu-Or aide [place] Work Phone: Comment on above: Reference Range: 0.5 0 - 1.30 Glucose [Mass/Vol] 128 mg/dL above high threshold 74 - 99 GP-Asrrzri-Hs aide [place] Work Phone: Potassium [Moles/Vol] 5.3 mmol/L 3.5 - 5.3 TZ-Xgrfjvw-Po aide [place] Work Phone: Sodium [Moles/Vol] 131 mmol/L below low threshold 136 - 145 MM-Ebxmunz-Xq aide [place] Work Phone: Urea nitrogen [Mass/Vol] 61 mg/dL above high threshold 6 - 23 SU-Hreqobu-Wq aide [place] Work Phone: Laboratory - Coagulationon 1 aPTT Coag (PPP) [Time] 31 s 25 - 35 BU-Gxibfnf-Gg aide [place] Work Phone: Comment on above: THE APTT IS NO LONGE R USED FOR MONITORING UNFRACTIONATED HEPARIN THERAPY. FOR MONITORING HEPARIN THERAPY, USE THE HEPARIN ASSAY. INR Coag (PPP) [Relative time] 1.4 {INR} above high threshold 0.9 - 1.1 LO-Myxklmn-Qd aide [place] Work Phone: PT Coag (PPP) [Time] 16.5 s above high threshold See Below IG-Sagmuhi-Qg aide [place] Work Phone: Comment on above: Reference Range: 10. 1 - 13.3 Laboratory - Hematology and Cell countson 05-02-2021 Erythrocyte distribution width (RBC) [Ratio] 17.0 % above high threshold See Below YR-Mwjzwpo-Hk aide [place] Work Phone: Comment on above: Reference Range: 11. 5 - 14.5 Hematocrit (Bld) [Volume fraction] 29.7 % below low threshold See Below PB-Mjvtpki-Zo aide [place] Work Phone: Comment on above: Reference Range: 41. 0 - 52.0 Hemoglobin (Bld) [Mass/Vol] 10.2 g/dL below low threshold See Below FB-Sqyuujz-Xn aide [place] Work Phone: Comment on above: Reference Range: 13. 5 - 17.5 MCHC (RBC) [Mass/Vol] 34.3 g/dL See Below SF-Ztuvrkc-Yn aide [place] Work Phone: Comment on above: Reference Range: 32. 0 - 36.0 MCV (RBC) [Entitic vol] 86 fL 80 - 100 GA-Zupiugs-Em aide [place] Work Phone: Platelets (Bld) [#/Vol] 247 10*3/uL 150 - 450 PT-Bducmyh-Gh aide [place] Work Phone: RBC (Bld) [#/Vol] 3.47 {x10E12/L} below low threshold See Below AK-Wuiqrjt-Ag aide [place] Work Phone: Comment on above: Reference Range: 4.5 0 - 5.90 WBC (Bld) [#/Vol] 11.6 10*3/uL above high threshold 4.4 - 11.3 KE-Gbqtypj-Wr aide [place] Work Phone: No Panel Informationon 05-02 15 {mL/min/1.73m2} Abnormal >60 MG-Uro logy-Ce aide [place] Work Phone: Comment on above: CALCULATIONS OF FABIO MATED GFR ARE PERFORMED USING THE MDRD STUDY EQUATION FOR THE IDMS-TRACEABLE CREATININE METHODS. CLIN CHEM 2007;53:766-72 12 {mL/min/1.73m2} Abnormal >60 MG-Uro logy-Ce aide [place] Work Phone: 0.3 {/100_WBC} 0.0-0.0 MG-Urology -Ce aide [place] Work Phone: Renal Function Panelon 05-02 Albumin BCP dye [Mass/Vol] 2.8 g/dL below low threshold 3.4 - 5.0 PY-Jqoszmg-Cq aide [place] Work Phone: Anion gap [Moles/Vol] 12 mmol/L 10 - 20 AK-Chwklgg-Mq aide [place] Work Phone: [phone] Calcium [Mass/Vol] 7.8 mg/dL below low threshold 8.6 - 10.6 CO-Ptjneoe-Hf aide [place] Work Phone: [phone] Chloride [Moles/Vol] 105 mmol/L 98 - 107 MG-U rology-Ce aide [place] Work Phone: [phone] CO2 [Moles/Vol] 20 mmol/L below low threshold 21 - 32 NB-Mnqfcgr-Rd aide [place] Work Phone: [phone] Creatinine [Mass/Vol] 4.90 mg/dL above high threshold See Below IF-Zbgrswt-Uw aide [place] Work Phone: [phone] Comment on above: Reference Range: 0.5 0 - 1.30 Glucose [Mass/Vol] 95 mg/dL 74 - 99 MG-Uro logy-Ce aide [place] Work Phone: [phone] Phosphate [Mass/Vol] 3.7 mg/dL 2.5 - 4.9 MG-U rology-Ce aide [place] Work Phone: [phone] Comment on above: The performance bren acteristics of phosphorus testing in heparinized plasma have been validated by the individual laboratory site where testing is performed. Testing on heparinized plasma is not approved by the FDA; however, such approval is not necessary. Potassium [Moles/Vol] 5.4 mmol/L above high threshold 3.5 - 5.3 XV-Jpagdux-Yz aide [place] Work Phone: [phone] Sodium [Moles/Vol] 132 mmol/L below low threshold 136 - 145 CG-Mietyds-Ig aide [place] Work Phone: [phone] Urea nitrogen [Mass/Vol] 61 mg/dL above high threshold 6 - 23 KO-Zsvtqbq-Og aide [place] Work Phone: [phone] Renal Function Panel 15 {mL/min/1.73m2} Abnormal >60 SQ-Ssbiqac-Ly aide [place] Work Phone: Comment on above: CALCULATIONS OF FABIO MATED GFR ARE PERFORMED USING THE MDRD STUDY EQUATION FOR THE IDMS-TRACEABLE CREATININE METHODS. CLIN CHEM 2007;53:766-72 Renal Function Panel 12 {mL/min/1.73m2} Abnormal >60 SJ-Avnzpps-Et aide [place] Work Phone: Albumin BCP dye [Mass/Vol] 2.7 g/dL below low threshold 3.4 - 5.0 AM-Cbkwrxe-Rl aide [place] Work Phone: Anion gap [Moles/Vol] 14 mmol/L 10 - 20 MN-Kluwsuf-Ae aide [place] Work Phone: Calcium [Mass/Vol] 7.8 mg/dL below low threshold 8.6 - 10.6 PY-Gyxojbv-Yn aide [place] Work Phone: Chloride [Moles/Vol] 104 mmol/L 98 - 107 MG-U rology-Ce aide [place] Work Phone: CO2 [Moles/Vol] 19 mmol/L below low threshold 21 - 32 JT-Ebzfmxb-Oc aide [place] Work Phone: Creatinine [Mass/Vol] 4.43 mg/dL above high threshold See Below RU-Tqimvng-Mn aide [place] Work Phone: Comment on above: Reference Range: 0.5 0 - 1.30 Glucose [Mass/Vol] 94 mg/dL 74 - 99 MG-Uro logy-Ce aide [place] Work Phone: Phosphate [Mass/Vol] 3.9 mg/dL 2.5 - 4.9 MG-U rology-Ce aide [place] Work Phone: Comment on above: The performance bren acteristics of phosphorus testing in heparinized plasma have been validated by the individual laboratory site where testing is performed. Testing on heparinized plasma is not approved by the FDA; however, such approval is not necessary. Potassium [Moles/Vol] 6.1 mmol/L Critically high 3.5 - 5.3 BX-Bfobftz-Vs aide [place] Work Phone: Comment on above: MILD HEMOLYSIS DETEC ANISH. The result may be falsely elevated due tohemolysis or other interferents. Clinical correlation is recommended.Repeat testing may be considered.HEME K CALLED RB TO JOYA HARTLEY, 05/02/2021 06:58 Sodium [Moles/Vol] 131 mmol/L below low threshold 136 - 145 YP-Tzswcor-Kb [employer] Work Phone: Urea nitrogen [Mass/Vol] 62 mg/dL above high threshold 6 - 23 ZS-Bykqtgp-Yy [employer] Work Phone: Renal Function Panel 17 {mL/min/1.73m2} Abnormal >60 EH-Vbhgxzq-Yh [employer] Work Phone: Comment on above: CALCULATIONS OF FABIO MATED GFR ARE PERFORMED USING THE MDRD STUDY EQUATION FOR THE IDMS-TRACEABLE CREATININE METHODS. CLIN CHEM 2007;53:766-72 Renal Function Panel 14 {mL/min/1.73m2} Abnormal >60 VB-Hgymgaw-Yr [employer] Work Phone: Vancomycin Level, Randomon Vancomycin [Mass/Vol] 20.9 ug/mL GI-Upyiupl-Tc [employer] Work Phone: Comment on above: .Therapeutic Ranges: Peak: All ages: 30.0-40.0 ug/mL. Trough: Age <18y: 5.0-10.0 ug/mL. Age >/= 18y: 5.0-20.0 ug/mL. Vancomycin trough concentrations drawn immediately prior to the next dose at steady-state are preferred for monitoring patients treated with vancomycin. Ref.: Am J Health-Syst Pharm 66: 83-98, 2009. Laboratory - Chemistry and C hemistry - challengeon 05-01-2021 Glucose [Mass/Vol] 96 mg/dL 74 - 99 MG-Uro logy-Ce [employer] Work Phone: Laboratory - Coagulationon aPTT Coag (PPP) [Time] 35 s 25 - 35 ST-Lidlchw-Pd [employer] Work Phone: Comment on above: THE APTT IS NO LONGE R USED FOR MONITORING UNFRACTIONATED HEPARIN THERAPY. FOR MONITORING HEPARIN THERAPY, USE THE HEPARIN ASSAY. INR Coag (PPP) [Relative time] 1.6 {INR} above high threshold 0.9 - 1.1 YQ-Wfodyra-Qy NPM [place] Work Phone: PT Coag (PPP) [Time] 18.9 s above high threshold See Below PN-Bxrbmjl-Se NPM [place] Work Phone: Comment on above: Reference Range: 10. 1 - 13.3 No Panel Informationon 05-01 SV-Jhsfagw-Vk NPM [place] Work Phone: Vancomycin Level, Randomon 1 Vancomycin [Mass/Vol] 17.5 ug/mL ZU-Ddswptx-Mg [employer] Work Phone: Comment on above: .Therapeutic Ranges: Peak: All ages: 30.0-40.0 ug/mL. Trough: Age <18y: 5.0-10.0 ug/mL. Age >/= 18y: 5.0-20.0 ug/mL. Vancomycin trough concentrations drawn immediately prior to the next dose at steady-state are preferred for monitoring patients treated with vancomycin. Ref.: Am J Health-Syst Pharm 66: 83-98, 2009. Laboratory - Blood bankon ABO group Nom (Bld) B MG-Ur ology-Ce [facility] Work Phone: Blood group antibody screen Ql Negative LT-Yrqxuhb-Cc [employer] Work Phone: Rh immune globulin screen (Bld) [Interp] Positive RD-Eopsyrh-Pd [employer] Work Phone: Laboratory - Chemistry and C hemistry - challengeon 04-30-2021 Anion gap [Moles/Vol] 13 mmol/L - JF-Frhaiof-Xz NPM [place] Work Phone: Calcium [Mass/Vol] 7.6 mg/dL below low threshold 8.6 - 10.6 LI-Qzwlqwg-Ih [employer] Work Phone: Chloride [Moles/Vol] 103 mmol/L 98 - 107 MG-U rology-Ce aide [place] Work Phone: CO2 [Moles/Vol] 20 mmol/L below low threshold 21 - 32 ZB-Ydwulwp-Sp aide [place] Work Phone: Creatinine [Mass/Vol] 4.56 mg/dL above high threshold See Below RW-Lfenoxj-Oj aied [place] Work Phone: Comment on above: Reference Range: 0.5 0 - 1.30 Glucose [Mass/Vol] 111 mg/dL above high threshold 74 - 99 QR-Owpkeuh-Yo aide [place] Work Phone: Potassium [Moles/Vol] 4.9 mmol/L 3.5 - 5.3 OZ-Gjtpket-Sl aide [place] Work Phone: Sodium [Moles/Vol] 131 mmol/L below low threshold 136 - 145 ZV-Ypxccpv-Jz aide [place] Work Phone: Urea nitrogen [Mass/Vol] 54 mg/dL above high threshold 6 - 23 HS-Hpzumjk-Ze aide [place] Work Phone: Laboratory - Coagulationon 1 aPTT Coag (PPP) [Time] 41 s above high threshold 25 - 35 DY-Eyuvbpm-Pe aide [place] Work Phone: Comment on above: THE APTT IS NO LONGE R USED FOR MONITORING UNFRACTIONATED HEPARIN THERAPY. FOR MONITORING HEPARIN THERAPY, USE THE HEPARIN ASSAY. INR Coag (PPP) [Relative time] 2.6 {INR} above high threshold 0.9 - 1.1 XM-Ugwjrdv-Va aide [place] Work Phone: PT Coag (PPP) [Time] 30.9 s above high threshold See Below DB-Pjnqpge-Ar aide [place] Work Phone: Comment on above: Reference Range: 10. 1 - 13.3 No Panel Informationon 04-30 16 {mL/min/1.73m2} Abnormal >60 MG-Uro logy-Ce aide [place] Work Phone: Comment on above: CALCULATIONS OF FABIO MATED GFR ARE PERFORMED USING THE MDRD STUDY EQUATION FOR THE IDMS-TRACEABLE CREATININE METHODS. CLIN CHEM 2007;53:766-72 13 {mL/min/1.73m2} Abnormal >60 MG-Uro logy-Ce aide [place] Work Phone: Radiologyon 04-30-2021 XR Chest 2 Views Normal MG-Urolo gy-Ce aide [place] Work Phone: Laboratory - Chemistry and C hemistry - challengeon 04-29-2021 Anion gap [Moles/Vol] 16 mmol/L 10 - 20 PZ-Hobhuzo-Rm aide [place] Work Phone: Calcium [Mass/Vol] Canceled MG-Uro logy-Ce aide [place] Work Phone: Calcium [Mass/Vol] 8.1 mg/dL below low threshold 8.6 - 10.6 AS-Zhmvjyp-Zf [employer] Work Phone: Chloride [Moles/Vol] Canceled MG-U rology-Ce aide [place] Work Phone: Chloride [Moles/Vol] 102 mmol/L 98 - 107 MG-U rology-Ce aide [place] Work Phone: CO2 [Moles/Vol] Canceled MG-Urolog y-Ce [employer] Work Phone: CO2 [Moles/Vol] 21 mmol/L 21 - 32 MG-Urolog y-Ce aide [place] Work Phone: Creatinine [Mass/Vol] Canceled SJ-Pnilanr-Rl aide [place] Work Phone: Creatinine [Mass/Vol] 4.01 mg/dL above high threshold See Below FV-Cpbkcht-Yo aide [place] Work Phone: Comment on above: Reference Range: 0.5 0 - 1.30 Glucose [Mass/Vol] Canceled MG-Uro logy-Ce aide [place] Work Phone: Glucose [Mass/Vol] 102 mg/dL above high threshold 74 - 99 UF-Qoylmfx-Nx aide [place] Work Phone: Potassium [Moles/Vol] Canceled MW-Yinudzp-Kl aide [place] Work Phone: Potassium [Moles/Vol] 5.5 mmol/L above high threshold 3.5 - 5.3 NQ-Rnpbijf-Ce aide [place] Work Phone: Sodium [Moles/Vol] Canceled MG-Uro logy-Ce aide [place] Work Phone: Sodium [Moles/Vol] 133 mmol/L below low threshold 136 - 145 GM-Dsyshqo-Wq aide [place] Work Phone: [phone] Urea nitrogen [Mass/Vol] Canceled EV-Inbgtpp-Zn aide [place] Work Phone: [phone] Urea nitrogen [Mass/Vol] 46 mg/dL above high threshold 6 - 23 PZ-Cfoagjc-Tj aide [place] Work Phone: [phone] Glucose [Mass/Vol] 139 mg/dL above high threshold 74 - 99 XH-Dxsdmed-Kp aide [place] Work Phone: [phone] Panel Informationon 04-29 Canceled TQ-Rmqlwuh-Qw aide [place] Work Phone: Comment on above: CALCULATIONS OF FABIO MATED GFR ARE PERFORMED USING THE MDRD STUDY EQUATION FOR THE IDMS-TRACEABLE CREATININE METHODS. CLIN CHEM 2007;53:766-72 18 {mL/min/1.73m2} Abnormal >60 MG-Uro logy-Ce aide [place] Work Phone: Comment on above: CALCULATIONS OF FABIO MATED GFR ARE PERFORMED USING THE MDRD STUDY EQUATION FOR THE IDMS-TRACEABLE CREATININE METHODS. CLIN CHEM 2007;53:766-72 15 {mL/min/1.73m2} Abnormal >60 MG-Uro logy-Ce aide [place] Work Phone: Radiologyon 04-29-2021 US Kidney - bilateral Normal TC-Vsbrjtu-Uj aide [place] Work Phone: Renal Function Panelon 04-29 Albumin BCP dye [Mass/Vol] 3.4 g/dL 3.4 - 5.0 IR-Pywjzgk-Sv aide [place] Work Phone: Anion gap [Moles/Vol] 20 mmol/L 10 - 20 GQ-Apppyug-Dj aide [place] Work Phone: Calcium [Mass/Vol] 8.2 mg/dL below low threshold 8.6 - 10.6 LL-Fzjjcdi-Zz aide [place] Work Phone: Chloride [Moles/Vol] 101 mmol/L 98 - 107 MG-U rology-Ce aide [place] Work Phone: CO2 [Moles/Vol] 18 mmol/L below low threshold 21 - 32 PL-Kbqiyim-Ah aide [place] Work Phone: Creatinine [Mass/Vol] 4.24 mg/dL above high threshold See Below HH-Mnbqnep-Pt aide [place] Work Phone: Comment on above: Reference Range: 0.5 0 - 1.30 Glucose [Mass/Vol] 56 mg/dL below low threshold 74 - 99 PM-Keqzvfc-Cv aide [place] Work Phone: Phosphate [Mass/Vol] 4.1 mg/dL 2.5 - 4.9 MG-U rology-Ce aide [place] Work Phone: Comment on above: The performance bren acteristics of phosphorus testing in heparinized plasma have been validated by the individual laboratory site where testing is performed. Testing on heparinized plasma is not approved by the FDA; however, such approval is not necessary. Potassium [Moles/Vol] 5.6 mmol/L above high threshold 3.5 - 5.3 ZJ-Eumqefp-Xk aide [place] Work Phone: Comment on above: MILD HEMOLYSIS DETEC ANISH. The result may be falsely elevated due tohemolysis or other interferents. Clinical correlation is recommended.Repeat testing may be considered. Sodium [Moles/Vol] 133 mmol/L below low threshold 136 - 145 GT-Bpzwufq-Zf aide [place] Work Phone: Urea nitrogen [Mass/Vol] 46 mg/dL above high threshold 6 - 23 WY-Rvupbwq-Cn NPM [place] Work Phone: Renal Function Panel 17 {mL/min/1.73m2} Abnormal >60 YB-Ihlipjy-Ec aide [place] Work Phone: Comment on above: CALCULATIONS OF FABIO MATED GFR ARE PERFORMED USING THE MDRD STUDY EQUATION FOR THE IDMS-TRACEABLE CREATININE METHODS. CLIN CHEM 2007;53:766-72 Renal Function Panel 14 {mL/min/1.73m2} Abnormal >60 IN-Jgavfsf-Ir [employer] Work Phone: Vancomycin Level, Randomon 1 Vancomycin [Mass/Vol] 12.2 ug/mL VW-Sitrsoa-Wq [employer] Work Phone: Comment on above: .Therapeutic Ranges: Peak: All ages: 30.0-40.0 ug/mL. Trough: Age <18y: 5.0-10.0 ug/mL. Age >/= 18y: 5.0-20.0 ug/mL. Vancomycin trough concentrations drawn immediately prior to the next dose at steady-state are preferred for monitoring patients treated with vancomycin. Ref.: Am J Health-Syst Pharm 66: 83-98, 2009. Complete Blood Count + Diffe rentialon 04-28-2021 Basophils/100 WBC (Bld) 0.4 % 0.0 - 2.0 RW-Vbkgccv-Ay [employer] Work Phone: Erythrocyte distribution width (RBC) [Ratio] 16.8 % above high threshold See Below VX-Gikgvay-Cu NPM [place] Work Phone: Comment on above: Reference Range: 11. 5 - 14.5 Hematocrit (Bld) [Volume fraction] 32.5 % below low threshold See Below RE-Kjcgyzq-El NPM [place] Work Phone: Comment on above: Reference Range: 41. 0 - 52.0 Hemoglobin (Bld) [Mass/Vol] 11.4 g/dL below low threshold See Below GX-Vubqsim-Hh [employer] Work Phone: Comment on above: Reference Range: 13. 5 - 17.5 Lymphocytes/100 WBC (Bld) 7.5 % See Below PD-Euhuqfn-Ad NPM [place] Work Phone: Comment on above: Reference Range: 13. 0 - 44.0 MCHC (RBC) [Mass/Vol] 35.1 g/dL See Below XQ-Apadduq-Fv NPM [place] Work Phone: Comment on above: Reference Range: 32. 0 - 36.0 MCV (RBC) [Entitic vol] 85 fL 80 - 100 BR-Mrseajv-Wl [employer] Work Phone: Monocytes/100 WBC (Bld) 5.7 % 2.0 - 10.0 BM-Ttxdaxn-Wx [employer] Work Phone: Neutrophils/100 WBC (Bld) 85.1 % See Below PY-Jluxxmj-Hb [employer] Work Phone: Comment on above: Reference Range: 40. 0 - 80.0 Platelets (Bld) [#/Vol] 265 10*3/uL 150 - 450 WM-Cqrsvve-Sr [employer] Work Phone: RBC (Bld) [#/Vol] 3.82 {x10E12/L} below low threshold See Below PD-Dndlujm-Sz [employer] Work Phone: Comment on above: Reference Range: 4.5 0 - 5.90 WBC (Bld) [#/Vol] 8.1 10*3/uL 4.4 - 11.3 MG-Uro logy-Ce [employer] Work Phone: Complete Blood Count + Differential 0.2 % 0.0 - 0.9 FG-Fzyuddx-Fn [employer] Work Phone: Comment on above: Immature Granulocyte Count (IG) includes promyelocytes, myelocytes and metamyelocytes but does not include bands. Percent differential counts (%) should be interpreted in the context of the absolute cell counts (cells/L). Complete Blood Count + Differential 0.5 {/100_WBC} 0.0-0.0 RN-Umhxckt-Rz NPM [place] Work Phone: Complete Blood Count + Differential 0.03 {x10E9/L} See Below RY-Ybpimud-Bt NPM [place] Work Phone: Comment on above: Reference Range: 0.0 0 - 0.10 Complete Blood Count + Differential 0.09 {x10E9/L} See Below OB-Wzehbgg-Ll NPM [place] Work Phone: Comment on above: Reference Range: 0.0 0 - 0.70 Complete Blood Count + Differential 0.46 {x10E9/L} See Below AJ-Jtmxgmj-Nq NPM [place] Work Phone: Comment on above: Reference Range: 0.1 0 - 1.00 Complete Blood Count + Differential 0.61 {x10E9/L} below low threshold See Below TH-Opfgopu-Lz [employer] Work Phone: Comment on above: Reference Range: 1.2 0 - 4.80 Complete Blood Count + Differential 6.90 {x10E9/L} See Below OB-Kkbesji-Sx [employer] Work Phone: Comment on above: Reference Range: 1.2 0 - 7.70 Complete Blood Count + Differential 1.1 % 0.0 - 6.0 TJ-Matbbkf-Yh [employer] Work Phone: Coronavirus 2019 RNA by PCR, Screening Asymptomticon 04-28-2021 Coronavirus 2019 RNA by PCR, Screening Asymptomtic Not detected Normal See Below RJ-Evkcwio-Ot NPM [place] Work Phone: Comment on above: SOURCE: Nasal, Nasop haryngealReference Range: Not Detected.This test has received FDA Emergency Use Authorization (EUA) and has been verified by [facility] ([facility]). This test is only authorized for the duration of time that circumstances exist to justify the authorization of the emergency use of in vitro diagnostic tests for the detection of SARS-CoV-2 virus and/or diagnosis of COVID-19 infection under section 564(b)(1) of the Act, 21 U.S.C. 360bbb-3(b)(1), unless the authorization is terminated or revoked sooner. [facility] is certified under CLIA-88 as qualified to perform high complexity testing. Testing is performed in the [facility] located at [address] [place] [address].SARS-CoV-2/Flu/RSV Multiplex Test: Fact sheet for providers: https://www.fda.gov/media/380263/downloadFact sheet for patients: https://www.fda.gov/media/526966/download Creatine Kinase, Levelon CK [Catalytic activity/Vol] 78 U/L 0 - 325 UZ-Aokegdg-Je aide [place] Work Phone: Cult, Bloodon 04-28-2021 Bacteria identified Cx Nom (Bld) FI-Rjpaaxx-Jg aide [place] Work Phone: Bacteria identified Cx Nom (Bld) JF-Xnxpnar-Jh aide [place] Work Phone: Laboratory - Blood bankon ABO group Nom (Bld) B MG-Ur ology-Ce aide [place] Work Phone: Blood group antibody screen Ql Negative IO-Iiekvkx-Xv aide [place] Work Phone: Rh immune globulin screen (Bld) [Interp] Positive WN-Zddhzzo-Mb aide [place] Work Phone: Laboratory - Chemistry and C hemistry - challengeon 04-28-2021 Potassium [Moles/Vol] 5.6 mmol/L above high threshold 3.5 - 5.3 YP-Ginixxv-Us aide [place] Work Phone: Comment on above: MODERATE HEMOLYSIS D ETECTED. The result may be falsely elevated due tohemolysis or other interferents. Clinical correlation is recommended.Repeat testing may be considered. Anion gap (Bld) [Moles/Vol] 15 mmol/L 10 - 25 IO-Hmnnlio-Uv aide [place] Work Phone: Calcium.ionized (Bld) [Moles/Vol] 1.10 mmol/L See Below JH-Jcamfsd-Kd aide [place] Work Phone: Comment on above: Reference Range: 1.1 0 - 1.33 Carboxyhemoglobin (BldV) [Mass fraction] 1.9 % Abnormal TN-Plzxsjd-Hx aide [place] Work Phone: Comment on above: REF VALUESNONSMOKERS 0.5-1.5%SMOKERS 0.5-10.0% Chloride [Moles/Vol] 103 mmol/L 98 - 107 MG-U rology-Ce aide [place] Work Phone: CO2 (BldV) [Partial pressure] 45 mm[Hg] 41 - 51 QG-Tghvmin-Nn aide [place] Work Phone: Glucose [Mass/Vol] 73 mg/dL below low threshold 74 - 99 VS-Wuitikn-Gn aide [place] Work Phone: HCO3 (Bld) [Moles/Vol] 20.7 mmol/L below low threshold See Below UV-Mmsmgnt-Lr aide [place] Work Phone: Comment on above: Reference Range: 22. 0 - 26.0 Lactate [Moles/Vol] 1.1 mmol/L 0.4 - 2.0 MG-Ur ology-Ce aide [place] Work Phone: Methemoglobin (BldV) [Mass fraction] 0.8 % 0.0 - 1.5 JN-Jnlupgh-Zb aide [place] Work Phone: Oxygen (BldV) [Partial pressure] 26 mm[Hg] below low threshold 35 - 45 LB-Cupkuts-Qe aide [place] Work Phone: pH (BldV) 7.27 [pH] below low threshold See Below RU-Sghkyyi-Tv aide [place] Work Phone: Comment on above: Reference Range: 7.3 3 - 7.43 Potassium [Moles/Vol] 5.9 mmol/L above high threshold 3.5 - 5.3 RX-Afmjkhn-Uv aide [place] Work Phone: Sodium [Moles/Vol] 133 mmol/L below low threshold 136 - 145 CC-Xsonpmn-Om NPM [place] Work Phone: [phone] Albumin BCP dye [Mass/Vol] 3.5 g/dL 3.4 - 5.0 LR-Hksknaz-Ap NPM [place] Work Phone: ALP [Catalytic activity/Vol] 143 U/L above high threshold 33 - 120 XW-Uqlxyah-Hu NPM [place] Work Phone: [phone] ALT With P-5'-P [Catalytic activity/Vol] 10 U/L 10 - 52 FR-Fxauwkz-Dc NPM [place] Work Phone: [phone] Comment on above: Patients treated wit h Sulfasalazine may generate falsely decreased results for ALT. Anion gap [Moles/Vol] 15 mmol/L 10 - 20 WP-Ghmnhvp-Ju [employer] Work Phone: AST With P-5'-P [Catalytic activity/Vol] 17 U/L 9 - 39 TD-Jhoodzl-Bf [employer] Work Phone: [phone] Comment on above: MILD HEMOLYSIS DETEC ANISH. The result may be falsely elevated due tohemolysis or other interferents. Clinical correlation is recommended.Repeat testing may be considered. Bilirubin [Mass/Vol] 0.8 mg/dL 0.0 - 1.2 MG-U rology-Ce [employer] Work Phone: Calcium [Mass/Vol] 8.5 mg/dL below low threshold 8.6 - 10.6 AS-Lvxiuwe-Kj [employer] Work Phone: [phone] Chloride [Moles/Vol] 100 mmol/L 98 - 107 MG-U rology-Ce [employer] Work Phone: CO2 [Moles/Vol] 21 mmol/L 21 - 32 MG-Urolog y-Ce [employer] Work Phone: Creatinine [Mass/Vol] 4.54 mg/dL above high threshold See Below YA-Fsdybim-Ce [employer] Work Phone: Comment on above: Reference Range: 0.5 0 - 1.30 Glucose [Mass/Vol] 71 mg/dL below low threshold 74 - 99 WF-Znxnchi-Ag aide [place] Work Phone: Potassium [Moles/Vol] 6.0 mmol/L above high threshold 3.5 - 5.3 MO-Dwflkap-Hj aide [place] Work Phone: Comment on above: MILD HEMOLYSIS DETEC ANISH. The result may be falsely elevated due tohemolysis or other interferents. Clinical correlation is recommended.Repeat testing may be considered. Protein [Mass/Vol] 10.1 g/dL above high threshold 6.4 - 8.2 KW-Gdiyktf-Ip aide [place] Work Phone: Sodium [Moles/Vol] 130 mmol/L below low threshold 136 - 145 OH-Yohfhxc-Lk aide [place] Work Phone: Urea nitrogen [Mass/Vol] 46 mg/dL above high threshold 6 - 23 IM-Usbolte-Yg aide [place] Work Phone: Laboratory - Coagulationon 1 INR Coag (PPP) [Relative time] 6.9 {INR} Critically abnormal 0.9 - 1.1 VL-Qrniauj-Tp aide [place] Work Phone: PT Coag (PPP) [Time] 82.7 s Critically abnormal See Below FF-Sxqlmld-Wa aide [place] Work Phone: Comment on above: Reference Range: 10. 1 - 13.3 Laboratory - Hematology and Cell countson 04-28-2021 Hematocrit (Bld) [Volume fraction] 35.0 % below low threshold See Below RW-Dlnrqtx-Py aide [place] Work Phone: Comment on above: Reference Range: 41. 0 - 52.0 Hemoglobin (Bld) [Mass/Vol] 11.9 g/dL below low threshold See Below NG-Iiruqpl-Tz aide [place] Work Phone: Comment on above: Reference Range: 13. 5 - 17.5 Lactate, Levelon 04-28-2021 Lactate [Moles/Vol] 1.3 mmol/L 0.4 - 2.0 MG-Ur ology-Ce aide [place] Work Phone: [phone] Comment on above: Venipuncture immedia tely after or during the administration of Metamizole may lead to falsely low results. Testing should be performed immediately prior to Metamizole dosing. [facility] 04-28 [email or web address] ?RetrieveTestByDateTime?P vxgnuhAR=[email or web address]&Date=0 01-29-2021&Time=22%3a07%3a 23%3a00&TestType=ECG&Site =1&OutputType=PDF&Ext=PDF WX-Bcyiuze-Ma aide [place] Work Phone: [phone] Please see ED Provid er Note for formal interpretation PO-Uvgaihg-Go aide [place] Work Phone: [phone] Normal NU-Zyjqlhm-Lj aide [place] Work Phone: [phone] ZG-Kavgano-Zv aide [place] Work Phone: [phone] MT-Rajnghf-Xc aide [place] Work Phone: [phone] DK-Gjnqvby-Gr aide [place] Work Phone: [phone] JI-Icdgjbv-Am aide [place] Work Phone: [phone] WF-Crgtzpc-Gd aide [place] Work Phone: [phone] EF-Ekigyfe-Be aide [place] Work Phone: [phone] RZ-Mzpvmda-Ie aide [place] Work Phone: [phone] RO-Cfttnzu-Lv aide [place] Work Phone: [phone] ZM-Fvxhrlh-Xz aide [place] Work Phone: [phone] MG-Efqgunf-Bx aide [place] Work Phone: [phone] FL-Cvqfwnp-Gd aide [place] Work Phone: [phone] BC-Nytjeiy-Ug aide [place] Work Phone: [phone] ZY-Vwyndtk-Wo aide [place] Work Phone: [phone] NJ-Gywesdf-Bi aide [place] Work Phone: -6.0 mmol/L below low threshold -2.0 - 3.0 YK-Jnyadyb-Pf aide [place] Work Phone: 43 % below low threshold 45 - 75 RU-Vrleqyv-Mf aide [place] Work Phone: 37.0 {degrees_C} MG-Urolo gy-Ce aide [place] Work Phone: Comment on above: NOTE: PATIENT RESULT S ARE NOT CORRECTED FOR TEMPERATURE. 16 {mL/min/1.73m2} Abnormal >60 MG-Uro logy-Ce aide [place] Work Phone: Comment on above: CALCULATIONS OF FABIO MATED GFR ARE PERFORMED USING THE MDRD STUDY EQUATION FOR THE IDMS-TRACEABLE CREATININE METHODS. CLIN CHEM 2007;53:766-72 13 {mL/min/1.73m2} Abnormal >60 MG-Uro logy-Ce aide [place] Work Phone: BASIC METABOLIC PANELon 10-0 -2020 Anion gap [Moles/Vol] 14 mmol/L Normal 10 - 20 [facility] Comment on above: Order Comment: Solomon d- RB to ronen , 04/26/2021 18:53 Performed By: #### B MP #### [facility] [address] [place] [address] Potassium [Moles/Vol] 6.2 mmol/L Critically high 3.5 - 5.3 [facility] Comment on above: Order Comment: Solomon d- RB to ronen , 04/26/2021 18:53 Result Comment: Call ed- RB to ronen , 04/26/2021 18:53 Performed By: #### B MP #### [facility] [address] [place] [address] Calcium [Mass/Vol] 7.7 mg/dL Low 8.6 - 10.3 [facility] Comment on above: Order Comment: Solomon d- RB to ronen , 04/26/2021 18:53 Performed By: #### B MP #### [address] [address] Chloride [Moles/Vol] 103 mmol/L Normal 98 - 107 [facility] Comment on above: Order Comment: Solomon d- RB to ronen , 04/26/2021 18:53 Performed By: #### B MP #### [address] [address] Creatinine [Mass/Vol] 3.89 mg/dL High 0.50 - 1.30 [facility] Comment on above: Order Comment: Solomon d- RB to ronen , 04/26/2021 18:53 Performed By: #### B MP #### [address] [address] GFR- AM. 19 mL/min/1.73m2 Abnormal >60 [facility] Comment on above: Order Comment: Solomon d- RB to ronen , 04/26/2021 18:53 Result Comment: CALC ULATIONS OF ESTIMATED GFR ARE PERFORMED USING THE MDRD STUDY EQUATION FOR THE IDMS-TRACEABLE CREATININE METHODS. CLIN CHEM 2007;53:766-72 Performed By: #### B MP #### [address] [address] GFR-NON AM. 16 mL/min/1.73m2 Abnormal >60 [facility] Comment on above: Order Comment: Solomon d- RB to ronen , 04/26/2021 18:53 Performed By: #### B MP #### [address] [address] Glucose [Mass/Vol] 86 mg/dL Normal 74 - 99 [facility] Comment on above: Order Comment: Solomon d- RB to ronen , 04/26/2021 18:53 Performed By: #### B MP #### [address] [address] HCO3 (Bld) [Moles/Vol] 20 mmol/L Low 21 - 32 [facility] Comment on above: Order Comment: Solomon d- RB to ronen , 04/26/2021 18:53 Performed By: #### B MP #### [address] [address] Sodium [Moles/Vol] 131 mmol/L Low 136 - 145 [facility] Comment on above: Order Comment: Solomon d- RB to ronen , 04/26/2021 18:53 Performed By: #### B MP #### [address] [address] Urea nitrogen [Mass/Vol] 45 mg/dL High 6 - 23 [facility] Comment on above: Order Comment: Solomon d- RB to ronen , 04/26/2021 18:53 Performed By: #### B MP #### [address] [address] CBCon 04-26-2021 Erythrocyte distribution width (RBC) [Ratio] 16.4 % High 11.5 - 14.5 [facility] Comment on above: Performed By: #### C BC #### [address] [address] Hematocrit (Bld) [Volume fraction] 30.5 % Low 41.0 - 52.0 [facility] Comment on above: Performed By: #### C BC #### [address] [address] Hemoglobin (Bld) [Mass/Vol] 10.2 g/dL Low 13.5 - 17.5 [facility] Comment on above: Performed By: #### C BC #### [address] [address] MCHC (RBC) [Mass/Vol] 33.4 g/dL Normal 32.0 - 36.0 [facility] Comment on above: Performed By: #### C BC #### [address] [address] MCV (RBC) [Entitic vol] 87 fL Normal 80 - 100 [facility] Comment on above: Performed By: #### C BC #### [address] [address] NUCLEATED RBC 0.3 /100 WBC Normal 0.0 - 0.0 [facility] Comment on above: Performed By: #### C BC #### [facility] [address] [place] [address] Platelets (Bld) [#/Vol] 263 10*3/uL Normal 150 - 450 [facility] Comment on above: Performed By: #### C BC #### [facility] [address] [place] [address] RBC 3.52 x10E12/L Low 4.50 - 5.90 [facility] Comment on above: Performed By: #### C BC #### [facility] [address] [place] [address] WBC (Bld) [#/Vol] 9.4 10*3/uL Normal 4.4 - 11.3 [facility] Comment on above: Performed By: #### C BC #### [facility] [address] [place] [address] Cult, Misc + smearon 021 Bacteria identified Cx Nom (Unsp spec) Abnormal [facility] Work Phone: Cult, Urineon 04-26-2021 Bacteria identified Cx Nom (U) [facility] Work Phone: Laboratory - Chemistry and C hemistry - challengeon 04-26-2021 Anion gap [Moles/Vol] 14 mmol/L 10 - 20 [facility] Work Phone: Calcium [Mass/Vol] 7.7 mg/dL below low threshold 8.6 - 10.3 -[facility] Work Phone: Chloride [Moles/Vol] 103 mmol/L 98 - 107 MP-L oeb [facility] Work Phone: CO2 [Moles/Vol] 20 mmol/L below low threshold 21 - 32 -[facility] Work Phone: Creatinine [Mass/Vol] 3.89 mg/dL above high threshold See Below -[facility] Work Phone: Comment on above: Reference Range: 0.5 0 - 1.30 Glucose [Mass/Vol] 86 mg/dL 74 - 99 [facility] Work Phone: Potassium [Moles/Vol] 6.2 mmol/L Critically high 3.5 - 5.3 [facility] Work Phone: Comment on above: Called- RB to [facility] , 04/26/2021 18:53 Sodium [Moles/Vol] 131 mmol/L below low threshold 136 - 145 [facility] Work Phone: Urea nitrogen [Mass/Vol] 45 mg/dL above high threshold 6 - 23 [facility] Work Phone: Laboratory - Coagulationon 1 INR Coag (PPP) [Relative time] 5.6 {INR} Critically abnormal 0.9 - 1.1 [facility] Work Phone: PT Coag (PPP) [Time] 66.3 s Critically abnormal See Below [facility] Work Phone: Comment on above: Reference Range: 10. 1 - 13.3 Laboratory - Hematology and Cell countson 04-26-2021 Erythrocyte distribution width (RBC) [Ratio] 16.4 % above high threshold See Below [facility] Work Phone: Comment on above: Reference Range: 11. 5 - 14.5 Hematocrit (Bld) [Volume fraction] 30.5 % below low threshold See Below [facility] Work Phone: Comment on above: Reference Range: 41. 0 - 52.0 Hemoglobin (Bld) [Mass/Vol] 10.2 g/dL below low threshold See Below [facility] Work Phone: Comment on above: Reference Range: 13. 5 - 17.5 MCHC (RBC) [Mass/Vol] 33.4 g/dL See Below [facility] Work Phone: Comment on above: Reference Range: 32. 0 - 36.0 MCV (RBC) [Entitic vol] 87 fL 80 - 100 [facility] Work Phone: Platelets (Bld) [#/Vol] 263 10*3/uL 150 - 450 [facility] Work Phone: RBC (Bld) [#/Vol] 3.52 {x10E12/L} below low threshold See Below [facility] Work Phone: Comment on above: Reference Range: 4.5 0 - 5.90 WBC (Bld) [#/Vol] 9.4 10*3/uL 4.4 - 11.3 [facility] Work Phone: MISCELLANEOUS CULT./SM.BACT. on 04-26-2021 MISCELLANEOUS CULT./SM.BACT. PATIENT: HIEN JOHNSON LOCATION: [facility]#: [id number] : 64 AGE: SEX: M ORDERED BY: LONNIE HARDWICK SOURCE: WOUND/ABSCESS COLLECTED: 04/26/21 15:08 ANTIBIOTICS AT [place].: RECEIVED : 04/26/21 22:27 SITE: PENILE IMPLANT WOUND DRAINAGE R E S U L T S GRAM STAIN FINAL 04/26/21 23:16 2+ GRANULOCYTES. NO ORGANISMS SEEN. MISCELLANEOUS CULT./SM.BACT. FINAL 04/28/21 15:17 1+ MIXED SKIN PATRICIO ISOLATE1 : Staphylococcus aureus 2+ METHICILLIN(OXACILLIN)ALVARADO CEPTIBLE STAPHYLOCOCCI ARE SUSCEPTIBLE TO SEMI-SYNTHETIC PENICILLINS (OXACILLIN,NAFCILLIN, ETC),BETA-LACTAM/BETA-LAC TAMASE INHIBITOR COMBINATIONS(INCLUDING AMPICILLIN/SULBACTAM, AMOXICILLIN/CLAVULANATE AND PIPERACILLIN/TAZOBACTAM), CARBAPENEMS AND CEPHALOSPORINS APPROVED FOR USE BY THE FDA FOR STAPHYLOCOCCAL INFECTIONS. Organism S aureus Antibiotic BP INTRP Clindamycin R Erythromycin R Oxacillin S Trimeth/Sulfa S Tetracycline I Vancomycin S ___ S=SUSCEPTIBLE I=INTERMEDIATE R=RESISTANT SDD=SUSCEPTIBLE DOSE DEPENDENT NS=NONSUSCEPTIBLE X=REPORTED IN ERROR ___ Normal [facility] Comment on above: Performed By: #### M [facility] #### [facility] [address] [place] [address] No Panel Informationon 04-26 19 {mL/min/1.73m2} Abnormal >60 MP-Madi b [facility] Work Phone: Comment on above: CALCULATIONS OF FABIO MATED GFR ARE PERFORMED USING THE MDRD STUDY EQUATION FOR THE IDMS-TRACEABLE CREATININE METHODS. CLIN CHEM 2007;53:766-72 16 {mL/min/1.73m2} Abnormal >60 MP-Madi b [facility] Work Phone: 0.3 {/100_WBC} 0.0 - 0.0 -Ronen [facility] Work Phone: PT/INRon 04-26-2021 PT Coag (PPP) [Time] 66.3 s Invalid Interpretation Code 10.1 - 13.3 [facility] Comment on above: Order Comment: Neha pickettTanisha RB to ronen , 04/26/2021 18:53 Performed By: #### P TINR #### [facility] [address] [place] [address] PT, INR 5.6 Invalid Interpretation Code 0.9 - 1.1 [facility] Comment on above: Order Comment: Solomon figueroa- RB to ronen , 04/26/2021 18:53 Performed By: #### P TINR #### [facility] [address] [place] [address] Tobacco Screening.on Tobacco use status CPHS a) Yes [facility] Work Phone: Tobacco Screening. Yes [facility] Work Phone: URINE CULTURE,BACTERIALon URINE CULTURE,BACTERIAL PATIENT: HIEN JOHNSON LOCATION: [facility]#: [id number] : 64 AGE: SEX: M ORDERED BY: LONNIE HARDWICK SOURCE: URINE COLLECTED: 04/26/21 14:52 ANTIBIOTICS AT [facility].: RECEIVED : 04/26/21 22:28 SITE: Clean Catch/Voided R E S U L T S URINE CULTURE,BACTERIAL FINAL 04/27/21 14:43 NO GROWTH Normal [facility] Comment on above: Performed By: #### U [facility] #### [facility] [address] [place] [address] Tobacco Screening.on Fall risk assessment a) No falls within the last year [facility] Work Phone: Tobacco use status CPHS b) No [facility] Work Phone: Tobacco Screening.on Fall risk assessment a) No falls within the last year [facility] Work Phone: Tobacco use status CPHS a) Yes [facility] Work Phone: Tobacco Screening. Yes [facility] Work Phone: Laboratory - Chemistry and C hemistry - challengeon 01-21-2021 Glucose [Mass/Vol] 223 mg/dL above high threshold 74 - 99 [facility] Work Phone: Glucose [Mass/Vol] 133 mg/dL above high threshold 74 - 99 [facility] Work Phone: Anion gap [Moles/Vol] 12 mmol/L 10 - 20 [facility] Work Phone: Calcium [Mass/Vol] 7.7 mg/dL below low threshold 8.6 - 10.6 [facility] Work Phone: Chloride [Moles/Vol] 108 mmol/L above high threshold 98 - 107 [facility] Work Phone: CO2 [Moles/Vol] 21 mmol/L 21 - 32 [facility] Work Phone: Creatinine [Mass/Vol] 3.02 mg/dL above high threshold See Below [facility] Work Phone: Comment on above: Reference Range: 0.5 0 - 1.30 Glucose [Mass/Vol] 124 mg/dL above high threshold 74 - 99 [facility] Work Phone: Potassium [Moles/Vol] 5.3 mmol/L 3.5 - 5.3 [facility] Work Phone: Sodium [Moles/Vol] 136 mmol/L 136 - 145 [facility] Work Phone: Urea nitrogen [Mass/Vol] 48 mg/dL above high threshold 6 - 23 [facility] Work Phone: Laboratory - Hematology and Cell countson 01-21-2021 Erythrocyte distribution width (RBC) [Ratio] 21.0 % above high threshold See Below [facility] Work Phone: Comment on above: Reference Range: 11. 5 - 14.5 Hematocrit (Bld) [Volume fraction] 35.3 % below low threshold See Below [facility] Work Phone: Comment on above: Reference Range: 41. 0 - 52.0 Hemoglobin (Bld) [Mass/Vol] 11.5 g/dL below low threshold See Below [facility] Work Phone: Comment on above: Reference Range: 13. 5 - 17.5 MCHC (RBC) [Mass/Vol] 32.6 g/dL See Below [facility] Work Phone: Comment on above: Reference Range: 32. 0 - 36.0 MCV (RBC) [Entitic vol] 90 fL 80 - 100 [facility] Work Phone: Platelets (Bld) [#/Vol] 221 10*3/uL 150 - 450 [facility] Work Phone: RBC (Bld) [#/Vol] 3.93 {x10E12/L} below low threshold See Below [facility] Work Phone: Comment on above: Reference Range: 4.5 0 - 5.90 WBC (Bld) [#/Vol] 7.9 10*3/uL 4.4 - 11.3 -Madi b [facility] Work Phone: No Panel Informationon 01-21 25 {mL/min/1.73m2} Abnormal >60 -Madi b [facility] Work Phone: Comment on above: CALCULATIONS OF FABIO MATED GFR ARE PERFORMED USING THE MDRD STUDY EQUATION FOR THE IDMS-TRACEABLE CREATININE METHODS. CLIN CHEM 2007;53:766-72 21 {mL/min/1.73m2} Abnormal >60 [facility] Work Phone: 0.3 {/100_WBC} 0.0-0.0 [facility] Work Phone: Laboratory - Chemistry and C hemistry - challengeon 01-20-2021 Glucose [Mass/Vol] 91 mg/dL 74 - 99 [facility] Work Phone: Glucose [Mass/Vol] 73 mg/dL below low threshold 74 - 99 [facility] Work Phone: Glucose [Mass/Vol] 96 mg/dL 74 - 99 [facility] Work Phone: Coronavirus 2019 RNA by PCR, Screening Asymptomticon 01-18-2021 Coronavirus 2019 RNA by PCR, Screening Asymptomtic Not detected Normal See Below [facility] Work Phone: Comment on above: SOURCE: Nasal, Nasop haryngealReference Range: Not Detected.This assay is designed to detect the N, ORF1ab and/or S genes of SARS-CoV-2 via nucleic acid amplification. A Negative (NOT DETECTED) result does not preclude 2019-nCoV infection since the adequacy of sample collection and/or low viral burden may result in presence of viral nucleic acids below the clinical sensitivity of this test method. Negative (NOT DETECTED) result should not be used as the sole basis for treatment or other patient management decisions. Rather negative results should be combined with clinical observations, patient history, and epidemiological information to make patient management decisions.Fact sheet for providers: https://www.fda.gov/media/035111/downloadFact sheet for patients: https://www.fda.gov/media/603766/downloadThis test has received FDA Emergency Use Authorization (EUA) and has been verified by [facility] ([facility]). This test is only authorized for the duration of time that circumstances exist to justify the authorization of the emergency use of in vitro diagnostic tests for the detection of SARS-CoV-2 virus and/or diagnosis of COVID-19 infection under section 564(b)(1) of the Act, 21 U.S.C. 360bbb-3(b)(1), unless the authorization is terminated or revoked sooner. [facility] is certified under CLIA-88 as qualified to perform high complexity testing. Testing is performed in the [facility] laboratories located at [address] [place] [address]. Cult, Urineon 01-18-2021 Bacteria identified Cx Nom (U) [facility] Work Phone: Laboratory - Chemistry and C hemistry - challengeon 01-18-2021 Anion gap [Moles/Vol] 14 mmol/L 10 - 20 [facility] Work Phone: Calcium [Mass/Vol] 8.4 mg/dL below low threshold 8.6 - 10.6 [facility] Work Phone: Chloride [Moles/Vol] 109 mmol/L above high threshold 98 - 107 [facility] Work Phone: CO2 [Moles/Vol] 21 mmol/L 21 - 32 [facility] Work Phone: Creatinine [Mass/Vol] 2.97 mg/dL above high threshold See Below [facility] Work Phone: Comment on above: Reference Range: 0.5 0 - 1.30 Glucose [Mass/Vol] 80 mg/dL 74 - 99 [facility] Work Phone: Potassium [Moles/Vol] 5.3 mmol/L 3.5 - 5.3 -[facility] Work Phone: Sodium [Moles/Vol] 139 mmol/L 136 - 145 [facility] Work Phone: Urea nitrogen [Mass/Vol] 44 mg/dL above high threshold 6 - 23 [facility] Work Phone: Laboratory - Coagulationon 0 01-18-2021 aPTT Coag (PPP) [Time] 34 s 25 - 35 [facility] Work Phone: Comment on above: THE APTT IS NO LONGE R USED FOR MONITORING UNFRACTIONATED HEPARIN THERAPY. FOR MONITORING HEPARIN THERAPY, USE THE HEPARIN ASSAY. INR Coag (PPP) [Relative time] 1.3 {INR} above high threshold 0.9 - 1.1 [facility] Work Phone: PT Coag (PPP) [Time] 15.1 s above high threshold See Below [facility] Work Phone: Comment on above: Reference Range: 10. 1 - 13.3 Laboratory - Hematology and Cell countson 01-18-2021 Erythrocyte distribution width (RBC) [Ratio] 20.2 % above high threshold See Below [facility] Work Phone: Comment on above: Reference Range: 11. 5 - 14.5 Hematocrit (Bld) [Volume fraction] 33.8 % below low threshold See Below [facility] Work Phone: Comment on above: Reference Range: 41. 0 - 52.0 Hemoglobin (Bld) [Mass/Vol] 11.3 g/dL below low threshold See Below [facility] Work Phone: Comment on above: Reference Range: 13. 5 - 17.5 MCHC (RBC) [Mass/Vol] 33.4 g/dL See Below [facility] Work Phone: Comment on above: Reference Range: 32. 0 - 36.0 MCV (RBC) [Entitic vol] 87 fL 80 - 100 [facility] Work Phone: Platelets (Bld) [#/Vol] 222 10*3/uL 150 - 450 [facility] Work Phone: RBC (Bld) [#/Vol] 3.89 {x10E12/L} below low threshold See Below [facility] Work Phone: Comment on above: Reference Range: 4.5 0 - 5.90 WBC (Bld) [#/Vol] 6.9 10*3/uL 4.4 - 11.3 [facility] Work Phone: No Panel Informationon 01-18 27 {mL/min/1.73m2} Abnormal >60 [facility] Work Phone: Comment on above: CALCULATIONS OF FABIO MATED GFR ARE PERFORMED USING THE MDRD STUDY EQUATION FOR THE IDMS-TRACEABLE CREATININE METHODS. CLIN CHEM 2007;53:766-72 22 {mL/min/1.73m2} Abnormal >60 [facility] Work Phone: 0.0 {/100_WBC} 0.0-0.0 [facility] Work Phone: Urinalysison 01-18-2021 Color (U) YELLOW See Below [facility] Work Phone: Comment on above: Reference Range: STR AW,YELLOW Glucose Ql (U) Negative NEGATIVE [facility] Work Phone: Ketones Ql (U) Negative NEGATIVE [facility] Work Phone: Leukocyte esterase Test strip Ql (U) Negative NEGATIVE [facility] Work Phone: pH (U) 6.0 [pH] 5.0 - 8.0 [facility] Work Phone: Protein (U) [Mass/Vol] 100 (2+) Abnormal NEGATIVE [facility] Work Phone: RBC (U) [#/Vol] Negative NEGATIVE [facility] Work Phone: Specific gravity (U) [Rel density] 1.012 1 See Below [facility] Work Phone: Comment on above: Reference Range: 1.0 05 - 1.035 Urinalysis Negative NEGATIVE [facility] Work Phone: Urinalysis <2.0 0.0 - 1.9 [facility] Work Phone: Urinalysis CLEAR CLEAR [facility] Work Phone: Urinalysis, Microscopicon Urinalysis, Microscopic <1 MPRewalonRonen [facility] Work Phone: Urinalysis, Microscopic 1 {/HPF} 0-5 [facility] Work Phone: Tobacco Screening.on 021 Tobacco use status CPHS b) No [facility] Work Phone: Cult, Body Fluid, + smearon 07-02-2020 Bacteria identified Cx Nom (Body fld) PATIENT: HIEN JOHNSON LOCATION: [facility]#: [id number] : 64 AGE: SEX: M ORDERED BY: MARCO HARDWICK: FLUID COLLECTED: 07/02/20 15:29ANTIBIOTICS AT [place].: RECEIVED : SITE: PENIS R E S U L T S GRAM STAIN CANCELLED 07/02/20 18:09 FLUID CULTURE/SM.,BACTERIAL CANCELLED 07/02/20 18:09 [facility] Work Phone: Comment on above: TEST FLUID CULTURE/S M.,BACTERIAL WAS CANCELLED, 07/02/2020 18:09 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 REORDERED IT A MISC CULTURE. SEE#[id number] 07/02/2020 18:09. Cult, Fungus +smearon 2019 Fungus identified Cx Nom (Unsp spec) PATIENT: HIEN JOHNSON LOCATION: [facility]#: [id number] : 64 AGE: SEX: M ORDERED BY: MARCO HARDWICK: COLLECTED: 07/02/20 15:26ANTIBIOTICS AT [place].: RECEIVED : SITE: PENIS R E S U L T S FUNGAL SMEAR CANCELLED 07/03/20 05:45 FUNGAL CULTURE/SM, MISC CANCELLED 07/03/20 05:45 [facility] Work Phone: Comment on above: TEST FUNGAL CULTURE/ SM, MISC WAS CANCELLED, 07/03/2020 05:45 Cult, Misc + smearon 020 Bacteria identified Cx Nom (Unsp spec) PATIENT: HIEN JOHNSON LOCATION: [facility]#: [id number] : 64 AGE: SEX: M ORDERED BY: MARCO HARDWICK: MISC COLLECTED: 07/02/20 15:29ANTIBIOTICS AT [facility].: RECEIVED : 07/02/20 17:46SITE: PENIS R E S U L T S GRAM STAIN FINAL 07/02/20 23:42 2+ GRANULOCYTES. NO ORGANISMS SEEN. MISCELLANEOUS CULT./SM.BACT. PRELIM 07/03/20 09:34 NO GROWTH, CULTURE IN PROGRESS. [facility] Work Phone: Bacteria identified Cx Nom (Unsp spec) PATIENT: HIEN JOHNSON LOCATION: [facility]#: [id number] : 64 AGE: SEX: M ORDERED BY: MARCO HARDWICK: MISC COLLECTED: 07/02/20 15:29ANTIBIOTICS AT [place].: RECEIVED : 07/02/20 17:46SITE: PENIS R E S U L T S GRAM STAIN FINAL 07/02/20 23:42 2+ GRANULOCYTES. NO ORGANISMS SEEN. MISCELLANEOUS CULT./SM.BACT. FINAL 07/04/20 14:08 1+ AEROBIC MIXED BACTERIA ISOLATE1 : Staphylococcus aureus RARE METHICILLIN(OXACILLIN)ALVARADO CEPTIBLE STAPHYLOCOCCI ARE SUSCEPTIBLE TO SEMI-SYNTHETIC PENICILLINS (OXACILLIN,NAFCILLIN, ETC),BETA-LACTAM/BETA-LAC TAMASE INHIBITOR COMBINATIONS(INCLUDING AMPICILLIN/SULBACTAM, AMOXICILLIN/CLAVULANATE AND PIPERACILLIN/TAZOBACTAM), CARBAPENEMS AND CEPHALOSPORINS APPROVED FOR USE BY THE FDA FOR STAPHYLOCOCCAL INFECTIONS. Organi sm S aureus Antibiotic BP INTRP Clinda mycin S Ciprofloxacin S Erythromycin S Levofloxacin S Oxacillin S Trimeth/Sulfa S Tetracycline S Vancomycin S ___S=SUSCEPTIBLE I=INTERMEDIATE R=RESISTANT SDD=SUSCEPTIBLE DOSE DEPENDENT NS=NONSUSCEPTIBLEX=REPORT ED IN ERROR Abnormal [facility] Work Phone: Metabolic Panelon 07-02-2020 Glucose [Mass/Vol] 87 mg/dL 74 - 99 Marissa [facility] Work Phone: Otheron 07-02-2020 Name HIEN JOHNSON Pathologist: OREN LAROSE MD, PhDDate of Procedure: 07/02/2020Date Received: 07/02/2020Date Reported 07/10/2020Submitting Physician: LONNIE HARDWICK MDLocation: KT Farrah External # FINAL DIAGNOSISA. 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 Clinical History:Infeccted penile prothesisSpecimens Submitted As:A: SEMI RIGID PROTHESIS Gross Description:Received fresh, labeled with the patient's name and hospital number and A-penile prosthesis semirigid , is a penile implant consisting of two cylinders. The cylinders measure 21.2 cm in length and 1.0 cm in diameter. There are markings indicating [employer] [id number]. The one cylinder isreceived in multiple segments. Tissue is not received with the specimen. Aphotograph has been taken. The specimen is for gross examination only. LMPp/07/06/2020 [facility] [address] [place] [address] [facility] Work Phone: Coronavirus 2019 RNA by PCR, Symptomaticon 07-01-2020 Coronavirus 2019 RNA by PCR, Symptomatic NOT DETECTED See Below [facility] Work Phone: Comment on above: SOURCE: Nasal, Nasop haryngealReference Range: Not Detected.This assay is designed to detect the N, ORF1ab and/or S genes of SARS-CoV-2 via nucleic acid amplification. A Negative (NOT DETECTED) result does not preclude 2019-nCoV infection since the adequacy of sample collection and/or low viral burden may result in presence of viral nucleic acids below the clinical sensitivity of this test method. Negative (NOT DETECTED) result should not be used as the sole basis for treatment or other patient management decisions. Rather negative results should be combined with clinical observations, patient history, and epidemiological information to make patient management decisions.Fact sheet for providers: https://www.fda.gov/media/920621/downloadFact sheet for patients: https://www.fda.gov/media/725468/downloadThis test has received FDA Emergency Use Authorization (EUA) and has been verified by [facility] ([facility]). This test is only authorized for the duration of time that circumstances exist to justify the authorization of the emergency use of in vitro diagnostic tests for the detection of SARS-CoV-2 virus and/or diagnosis of COVID-19 infection under section 564(b)(1) of the Act, 21 U.S.C. 360bbb-3(b)(1), unless the authorization is terminated or revoked sooner. [facility] is certified under CLIA-88 as qualified to perform high complexity testing. Testing is performed in the [facility] laboratories located at [address] [place] [address]. Ordering Provider: Nisa RM MNAME [id number] Cult, Urineon 06-30-2020 Bacteria identified Cx Nom (U) PATIENT: HIEN JOHNSON LOCATION: [facility] BILL#: [id number] : 64 AGE: SEX: M ORDERED BY: SAMIR HARDWICKCE: URINE COLLECTED: 06/30/20 12:10ANTIBIOTICS AT [place].: RECEIVED : 06/30/20 20:59SITE: Unspecified R E S U L T S URINE CULTURE,BACTERIAL FINAL 07/01/20 14:02 NO SIGNIFICANT GROWTH. [facility] Work Phone: URINE CULTURE,BACTERIALon URINE CULTURE,BACTERIAL PATIENT: HIEN JOHNSON LOCATION: [facility] BILL#: [id number] : 64 AGE: SEX: M ORDERED BY: LONNIE HARDWICK SOURCE: URINE COLLECTED: 06/30/20 12:10 ANTIBIOTICS AT [place].: RECEIVED : 06/30/20 20:59 SITE: Unspecified R E S U L T S URINE CULTURE,BACTERIAL FINAL 07/01/20 14:02 NO SIGNIFICANT GROWTH. Normal [place] [facility] Comment on above: Performed By: #### [facility] #### [facility] [address] [place] [address] Metabolic Panelon 04-11-2020 Glucose [Mass/Vol] 119 mg/dL above high threshold 74 - 99 RP-Zgxgucf-CQ [facility] Work Phone: Anion gap [Moles/Vol] 14 mmol/L 10 - 20 YA-Mzeebvw-XF [facility] Work Phone: Calcium [Mass/Vol] 7.7 mg/dL below low threshold 8.6 - 10.6 SC-Dfccbgm-CQ [facility] Work Phone: Chloride [Moles/Vol] 107 mmol/L 98 - 107 MG-U rology-[facility] Work Phone: CO2 [Moles/Vol] 22 mmol/L 21 - 32 MG-Urolog y-[facility] Work Phone: Creatinine [Mass/Vol] 3.46 mg/dL above high threshold See Below JD-Jihhmqj-DQ [facility] Work Phone: Comment on above: Reference Range: 0.5 0 - 1.30 Glucose [Mass/Vol] 84 mg/dL 74 - 99 MG-Uro logy-[facility] Work Phone: Potassium [Moles/Vol] 5.3 mmol/L 3.5 - 5.3 PZ-Cdaoijq-SQ [facility] Work Phone: Sodium [Moles/Vol] 138 mmol/L 136 - 145 MG-Uro logy-[facility] Work Phone: Urea nitrogen [Mass/Vol] 39 mg/dL above high threshold 6 - 23 PA-Tbhczog-RW [facility] Work Phone: Otheron 04-11-2020 22 {mL/min/1.73m2} Abnormal >60 MG-Uro logy-[facility] Work Phone: Comment on above: CALCULATIONS OF FABIO MATED GFR ARE PERFORMED USING THE MDRD STUDY EQUATION FOR THE IDMS-TRACEABLE CREATININE METHODS. CLIN CHEM 2007;53:766-72 18 {mL/min/1.73m2} Abnormal >60 MG-Uro logy-[facility] Work Phone: Metabolic Panelon 04-10-2020 Glucose [Mass/Vol] 106 mg/dL above high threshold 74 - 99 QY-Nwfjlue-CG [facility] Work Phone: Anion gap [Moles/Vol] 14 mmol/L 10 - 20 AL-Dycocyn-FQ [facility] Work Phone: Calcium [Mass/Vol] 7.6 mg/dL below low threshold 8.6 - 10.6 PB-Zjxilde-TH [facility] Work Phone: Chloride [Moles/Vol] 105 mmol/L 98 - 107 MG-U rology-[facility] Work Phone: CO2 [Moles/Vol] 22 mmol/L 21 - 32 MG-Urolog y-[facility] Work Phone: Creatinine [Mass/Vol] 3.55 mg/dL above high threshold See Below EQ-Acqxnvk-DU [facility] Work Phone: Comment on above: Reference Range: 0.5 0 - 1.30 Glucose [Mass/Vol] 117 mg/dL above high threshold 74 - 99 XC-Bsdhhwz-JO [facility] Work Phone: Potassium [Moles/Vol] 5.5 mmol/L above high threshold 3.5 - 5.3 QA-Rdbxesa-GI [facility] Work Phone: Comment on above: MILD HEMOLYSIS DETEC ANISH. The result may be falsely elevated due tohemolysis or other interferents. Clinical correlation is recommended.Repeat testing may be considered. Sodium [Moles/Vol] 135 mmol/L below low threshold 136 - 145 QJ-Sjwvpux-DH [facility] Work Phone: Urea nitrogen [Mass/Vol] 41 mg/dL above high threshold 6 - 23 LS-Xfjuhxo-JC [facility] Work Phone: Glucose [Mass/Vol] 93 mg/dL 74 - 99 MG-Uro logy-[facility] Work Phone: Anion gap [Moles/Vol] 14 mmol/L 10 - 20 PX-Dqbpkcl-PY [facility] Work Phone: Calcium [Mass/Vol] 7.8 mg/dL below low threshold 8.6 - 10.6 IZ-Kusbujp-RS [facility] Work Phone: Chloride [Moles/Vol] 106 mmol/L 98 - 107 MG-U rology-[facility] Work Phone: CO2 [Moles/Vol] 23 mmol/L 21 - 32 MG-Urolog y-[facility] Work Phone: Creatinine [Mass/Vol] 3.63 mg/dL above high threshold See Below MQ-Edordbp-MF [facility] Work Phone: Comment on above: Reference Range: 0.5 0 - 1.30 Glucose [Mass/Vol] 98 mg/dL 74 - 99 MG-Uro logy-[facility] Work Phone: Potassium [Moles/Vol] 5.4 mmol/L above high threshold 3.5 - 5.3 BN-Betpmrd-UA [facility] Work Phone: Sodium [Moles/Vol] 138 mmol/L 136 - 145 MG-Uro logy-[facility] Work Phone: Urea nitrogen [Mass/Vol] 40 mg/dL above high threshold 6 - 23 XU-Uaeykup-EI [facility] Work Phone: Glucose [Mass/Vol] 112 mg/dL above high threshold 74 - 99 VU-Xiuypcy-LG [facility] Work Phone: Otheron 04-10-2020 22 {mL/min/1.73m2} Abnormal >60 MG-Uro logy-[facility] Work Phone: Comment on above: CALCULATIONS OF FABIO MATED GFR ARE PERFORMED USING THE MDRD STUDY EQUATION FOR THE IDMS-TRACEABLE CREATININE METHODS. CLIN CHEM 2007;53:766-72 18 {mL/min/1.73m2} Abnormal >60 MG-Uro logy-[facility] Work Phone: US Kidney - bilateral Interpreted by: JENIFFER DUMONT04/10/20 15:46MRN: [id number] Name: HIEN JOHNSON STUDY:US RENAL BILAT; 04/10/2020 3:30 pm INDICATION:JENNY. COMPARISON:09/29/2011 CT abdomen/pelvis ORDERING CLINICIAN:MICHELLE OVERTON TECHNIQUE:Grayscale and color Doppler sonographic images of the kidneys. FINDINGS: RIGHT KIDNEY: The right kidney measures 11.3 cm in length. Multiplesimple cysts (thin imperceptible wall, no flow, no solid components,increased through transmission) are noted measuring 1.9 cm (midpole),and 1.4 cm and 1.6 cm on (lower pole) in maximal dimension.No hydronephrosis. No renal calculus or perinephric fluid. Ahypoechoic nodule superior to the right kidney likely represents theknown adrenal adenoma seen on 09/29/2011 CT abdomen/pelvis. LEFT KIDNEY: The left kidney measures 11.2 cm in length.No hydronephrosis. No renal calculus or perinephric fluid. URINARY BLADDER: Partially distended; otherwise, no significantabnormality. IMPRESSION:No hydronephrosis or acute sonographic abnormality of the kidneys.Multiple simple right renal cysts.Electronically signed by: JENIFFER DUMNOT 04/10/20 15:46 Normal EM-Bgvptdm-QE [facility] Work Phone: Potassium/Creatinine (U) [Molar ratio] 21 {mmol/g_Creat} See Below HE-Byuzawm-S H [facility] Work Phone: Comment on above: Reference Range: Not Established Sodium/Creatinine (U) [Ratio] 208 {mmol/g_Creat} See Below ML-Djxrlxc-TK [facility] Work Phone: Comment on above: Reference Range: Not Established Urea/Creatinine (U) [Molar ratio] 4.9 {g/g_Creat} See Below JS-Yunhjdr-WB [facility] Work Phone: Comment on above: Reference Range: Not Established 185 {mmol/g_Creat} 23 - 275 [facility] Work Phone: 97 mmol/L See Below XD-Kzjygds-YC [facility] Work Phone: Comment on above: Reference Range: Not Established 17 {mL/min/1.73m2} Abnormal >60 MG-Uro logy-[facility] Work Phone: 21 {mL/min/1.73m2} Abnormal >60 MG-Uro logy-[facility] Work Phone: Comment on above: CALCULATIONS OF FABIO MATED GFR ARE PERFORMED USING THE MDRD STUDY EQUATION FOR THE IDMS-TRACEABLE CREATININE METHODS. CLIN CHEM 2007;53:766-72 Urinalysison 04-10-2020 Creatinine (U) [Mass/Vol] 52.3 mg/dL See Below JB-Dxywzaa-KX [facility] Work Phone: Comment on above: Reference Range: 20. 0 - 370.0 Osmolality (U) [Osmolality] 336 {mOsm/kg} 200 - 1200 SO-Xkwovsk-TZ [facility] Work Phone: Potassium (U) [Moles/Vol] 11 mmol/L See Below RO-Pdwojio-LF [facility] Work Phone: Comment on above: Reference Range: Not Established Sodium (U) [Moles/Vol] 109 mmol/L See Below TZ-Vdwnmwy-CO [facility] Work Phone: Comment on above: Reference Range: Not Established Urea nitrogen (U) [Mass/Vol] 256 mg/dL See Below XR-Mjwktys-NJ [facility] Work Phone: Comment on above: Reference Range: Not Established Metabolic Panelon 04-09-2020 Glucose [Mass/Vol] 130 mg/dL above high threshold 74 - 99 LX-Uptkwgp-IA [facility] Work Phone: Glucose [Mass/Vol] 91 mg/dL 74 - [address] MG-[address] [facility] Work Phone: Anion gap [Moles/Vol] 12 mmol/L 10 - 20 JS-Gojnnnc-WY [facility] Work Phone: Calcium [Mass/Vol] 7.2 mg/dL below low threshold 8.6 - 10.6 KJ-Scxrvjq-TG [facility] Work Phone: Chloride [Moles/Vol] 106 mmol/L 98 - 107 MG-U rology-[facility] Work Phone: CO2 [Moles/Vol] 24 mmol/L 21 - 32 MG-Urolog y-[facility] Work Phone: Creatinine [Mass/Vol] 3.59 mg/dL above high threshold See Below BA-Cecumgy-EN [facility] Work Phone: Comment on above: Reference Range: 0.5 0 - 1.30 Glucose [Mass/Vol] 109 mg/dL above high threshold 74 - 99 PA-Zccxpuh-HU [facility] Work Phone: Potassium [Moles/Vol] 5.1 mmol/L 3.5 - 5.3 DL-Vtvzraq-ON [facility] Work Phone: Sodium [Moles/Vol] 137 mmol/L 136 - 145 MG-Uro logy-[facility] Work Phone: Urea nitrogen [Mass/Vol] 41 mg/dL above high threshold 6 - 23 OA-Kqyxypq-VX [facility] Work Phone: Glucose [Mass/Vol] 117 mg/dL above high threshold 74 - 99 CE-Mxmblpf-WN [facility] Work Phone: Otheron 04-09-2020 18 {mL/min/1.73m2} Abnormal >60 MG-Uro logy-[facility] Work Phone: 22 {mL/min/1.73m2} Abnormal >60 MG-Uro logy-[facility] Work Phone: Comment on above: CALCULATIONS OF FABIO MATED GFR ARE PERFORMED USING THE MDRD STUDY EQUATION FOR THE IDMS-TRACEABLE CREATININE METHODS. CLIN CHEM 2007;53:766-72 Hematologyon 04-08-2020 Hematocrit (Bld) [Volume fraction] 29.4 % below low threshold See Below JS-Yxmgvwe-ZR [facility] Work Phone: Comment on above: Reference Range: 41. 0 - 52.0 Hemoglobin (Bld) [Mass/Vol] 9.6 g/dL below low threshold See Below GU-Dncfiqh-LK [facility] Work Phone: [phone] Comment on above: Reference Range: 13. 5 - 17.5 MCV (RBC) [Entitic vol] 79 fL below low threshold 80 - 100 KK-Hbpdtye-TC [facility] Work Phone: [phone] Platelets (Bld) [#/Vol] 323 {x10E9/L} 150 - 450 MW-Baydywh-OW [facility] Work Phone: [phone] RBC (Bld) [#/Vol] 3.71 {x10E12/L} below low threshold See Below QE-Gnbqcdq-BN [facility] Work Phone: [phone] Comment on above: Reference Range: 4.5 0 - 5.90 WBC (Bld) [#/Vol] 0.0 {/100_WBC} 0.0-0.0 MG- Urology-[facility] Work Phone: [phone] WBC (Bld) [#/Vol] 10.1 {x10E9/L} 4.4 - 11.3 MG- Urology-[facility] Work Phone: [phone] Metabolic Panelon 04-08-2020 Glucose [Mass/Vol] 103 mg/dL above high threshold 74 - 99 LJ-Mhzmqjk-XC [facility] Work Phone: [phone] Glucose [Mass/Vol] 102 mg/dL above high threshold 74 - 99 PY-Cqgxvlf-LZ [facility] Work Phone: [phone] Glucose [Mass/Vol] 119 mg/dL above high threshold 74 - 99 GM-Jmkrkmm-LQ [facility] Work Phone: Anion gap [Moles/Vol] 14 mmol/L 10 - 20 IH-Gphdado-ZM [facility] Work Phone: Calcium [Mass/Vol] 7.8 mg/dL below low threshold 8.6 - 10.6 CF-Swpiniw-NR [facility] Work Phone: Chloride [Moles/Vol] 104 mmol/L 98 - 107 MG-U rology-[facility] Work Phone: CO2 [Moles/Vol] 22 mmol/L 21 - 32 MG-Urolog y-[facility] Work Phone: Creatinine [Mass/Vol] 3.02 mg/dL above high threshold See Below CN-Fyxcfzl-BU [facility] Work Phone: Comment on above: Reference Range: 0.5 0 - 1.30 Glucose [Mass/Vol] 88 mg/dL 74 - 99 MG-Uro logy-[facility] Work Phone: Potassium [Moles/Vol] 5.5 mmol/L above high threshold 3.5 - 5.3 WW-Orwfhvx-PA [facility] Work Phone: Sodium [Moles/Vol] 134 mmol/L below low threshold 136 - 145 EW-Lphfrsu-IC [facility] Work Phone: Urea nitrogen [Mass/Vol] 38 mg/dL above high threshold 6 - 23 MH-Cnultcq-MN [facility] Work Phone: Otheron 04-08-2020 Erythrocyte distribution width (RBC) [Ratio] 19.7 % above high threshold See Below TW-Sebgusa-WK [facility] Work Phone: Comment on above: Reference Range: 11. 5 - 14.5 MCHC (RBC) [Mass/Vol] 32.7 g/dL See Below OZ-Rvtmtdq-UD [facility] Work Phone: Comment on above: Reference Range: 32. 0 - 36.0 21 {mL/min/1.73m2} Abnormal >60 MG-Uro logy-[facility] Work Phone: 25 {mL/min/1.73m2} Abnormal >60 MG-Uro logy-[facility] Work Phone: Comment on above: CALCULATIONS OF FABIO MATED GFR ARE PERFORMED USING THE MDRD STUDY EQUATION FOR THE IDMS-TRACEABLE CREATININE METHODS. CLIN CHEM 2007;53:766-72 CT Pelvis without Contraston 04-07-2020 CT Pelvis WO contrast Interpreted by: ANNMARIE GUSMAN MRMTBPKR94/17/20 11:22MRN: [id number] Name: HIEN JOHNSON STUDY:CT PELVIS W/O CONTRAST; 04/07/2020 9:54 am INDICATION:possible infected deep graft/wound site, Lie Flat: Yes. 37-wror-xsxiknp with hidradenitis status post split-thickness graft to the penisand mons flap on 03/26/2020, concern for wound infection. COMPARISON:CT abdomen pelvis dated 09/29/2011MRI pelvis dated 02/22/2016 ORDERING CLINICIAN:OSMAR BLUE TECHNIQUE:CT of the abdomen and pelvis was performed. Contiguous axial imageswere obtained at 3 mm slice thickness through the pelvis. Coronal andsagittal reconstructions at 3 mm slice thickness were performed. Nointravenous contrast was administered; positive oral contrast wasgiven. FINDINGS:PELVIS: BLADDER:The urinary bladder appears normal without abnormal wall thickening. REPRODUCTIVE ORGANS:Postoperative changes of scrotectomy, with testicles located in thesubcutaneous tissues near the gracilis muscles bilaterally. Penileimplant is in place in the bilateral corpora cavernosa. Postsurgicalchanges of skin grafting in the soft tissues overlying the penis andmons pubis. BOWEL:The small and large bowel are normal in caliber and demonstrate nowall thickening. There are hyperdense contents within the bowelswhich may relate to medication or prior contrast administration. Theappendix is not definitely visualized. There is however no pericecalstranding or fluid. VESSELS:There is severe atherosclerotic calcification of the arteries withinthe pelvis. There is no aneurysmal dilation lower abdominal aorta.IVC filter in place. PERITONEUM/RETROPERITONEU M/LYMPH NODES:No ascites or free air, no fluid collection. There are multipleenlarged para-aortic lymph nodes for example measuring 1.9 x 1.3 cm(axial image ). ABDOMINAL WALL:Postsurgical changes of skin grafting in the soft tissues overlyingthe mons pubis with diffuse fat stranding and edema. There is asubcutaneous fluid collection in the left inguinal region measuring5.4 x 1.2 cm which demonstrates no rim enhancement or gas. There is asmaller less well-defined collection on the right side underlying asurgical staple. BONES:No suspicious osseous lesions are identified. Degenerative discogenicdisease is noted in the lower lumbar spine. IMPRESSION:1. Postsurgical changes of skin grafting in the soft tissuesoverlying the mons pubis. Small subcutaneous fluid collections in thebilateral inguinal regions which demonstrate no rim enhancement orgas and likely represent postoperative seromas.2. Penile prosthesis in the bilateral corpora cavernosa.3. Stable postoperative changes of scrotectomy with testicles locatedin the subcutaneous tissues near the gracilis muscles bilaterally.4. Multiple enlarged paraaortic lymph nodes which are likely reactivein nature. I personally reviewed the images/study and I agree with the findingsas stated. This study was interpreted at [place], [place].Electronically signed by: ANNMARIE CARDONA 04/08/20 11:22 Normal [facility] Work Phone: Hematologyon 04-07-2020 Hematocrit (Bld) [Volume fraction] 31.9 % below low threshold See Below [facility] Work Phone: Comment on above: Reference Range: 41. 0 - 52.0 Hemoglobin (Bld) [Mass/Vol] 9.7 g/dL below low threshold See Below [facility] Work Phone: Comment on above: Reference Range: 13. 5 - 17.5 MCV (RBC) [Entitic vol] 85 fL 80 - 100 [facility] Work Phone: Platelets (Bld) [#/Vol] 309 {x10E9/L} 150 - 450 [facility] Work Phone: RBC (Bld) [#/Vol] 3.77 {x10E12/L} below low threshold See Below [facility] Work Phone: Comment on above: Reference Range: 4.5 0 - 5.90 WBC (Bld) [#/Vol] 0.0 {/100_WBC} 0.0-0.0 [facility] Work Phone: WBC (Bld) [#/Vol] 9.6 {x10E9/L} 4.4 - 11.3 MG-U rology-[facility] Work Phone: Metabolic Panelon 04-07-2020 Glucose [Mass/Vol] 107 mg/dL above high threshold 74 - 99 CW-Edukxuy-MZ [facility] Work Phone: [phone] Glucose [Mass/Vol] 202 mg/dL above high threshold 74 - 99 YV-Hghulnu-OK [facility] Work Phone: [phone] Glucose [Mass/Vol] 104 mg/dL above high threshold 74 - 99 SY-Htggmai-FS [facility] Work Phone: [phone] Anion gap [Moles/Vol] 14 mmol/L 10 - 20 ZL-Ffjryas-IM [facility] Work Phone: [phone] Calcium [Mass/Vol] 7.9 mg/dL below low threshold 8.6 - 10.6 FK-Vsjfnvi-AG [facility] Work Phone: [phone] Chloride [Moles/Vol] 107 mmol/L 98 - 107 MG-U rology-UH [facility] Work Phone: [phone] CO2 [Moles/Vol] 22 mmol/L 21 - 32 MG-Urolog y-[facility] Work Phone: [phone] Creatinine [Mass/Vol] 2.39 mg/dL above high threshold See Below QG-Kznpvtv-HA [facility] Work Phone: [phone] Comment on above: Reference Range: 0.5 0 - 1.30 Glucose [Mass/Vol] 94 mg/dL 74 - 99 MG-Uro logy-[facility] Work Phone: [phone] Potassium [Moles/Vol] 5.3 mmol/L 3.5 - 5.3 AD-Ocjpzwq-FM [facility] Work Phone: [phone] Sodium [Moles/Vol] 138 mmol/L 136 - 145 MG-Uro logy-[facility] Work Phone: [phone] Urea nitrogen [Mass/Vol] 31 mg/dL above high threshold 6 - 23 BR-Fchzlqy-JB [facility] Work Phone: Otheron 04-07-2020 Erythrocyte distribution width (RBC) [Ratio] 21.4 % above high threshold See Below TH-Nxbxrwn-DZ [facility] Work Phone: Comment on above: Reference Range: 11. 5 - 14.5 MCHC (RBC) [Mass/Vol] 30.4 g/dL below low threshold See Below IF-Vzpmrpz-NM [facility] Work Phone: Comment on above: Reference Range: 32. 0 - 36.0 34 {mL/min/1.73m2} Abnormal >60 MG-Uro logy-UH [facility] Work Phone: Comment on above: CALCULATIONS OF FABIO MATED GFR ARE PERFORMED USING THE MDRD STUDY EQUATION FOR THE IDMS-TRACEABLE CREATININE METHODS. CLIN CHEM 2007;53:766-72 28 {mL/min/1.73m2} Abnormal >60 MG-Uro logy-UH [facility] Work Phone: Metabolic Panelon 04-01-2020 Glucose [Mass/Vol] 116 mg/dL above high threshold 74 - 99 GA-Msbdfcr-RI [facility] Work Phone: Glucose [Mass/Vol] 138 mg/dL above high threshold 74 - 99 GU-Wthkfdb-DT [facility] Work Phone: Anion gap [Moles/Vol] 14 mmol/L 10 - 20 LY-Srheqtd-SZ [facility] Work Phone: Calcium [Mass/Vol] 7.5 mg/dL below low threshold 8.6 - 10.6 QT-Qourhky-TK [facility] Work Phone: Chloride [Moles/Vol] 104 mmol/L 98 - 107 MG-U rology-[facility] Work Phone: CO2 [Moles/Vol] 23 mmol/L 21 - 32 MG-Urolog y-UH [facility] Work Phone: Creatinine [Mass/Vol] 2.52 mg/dL above high threshold See Below OD-Nvqdqyu-IS [facility] Work Phone: Comment on above: Reference Range: 0.5 0 - 1.30 Glucose [Mass/Vol] 93 mg/dL 74 - 99 MG-Uro logy-[facility] Work Phone: Potassium [Moles/Vol] 4.2 mmol/L 3.5 - 5.3 AF-Yebhluk-RU [facility] Work Phone: Sodium [Moles/Vol] 137 mmol/L 136 - 145 MG-Uro logy-[facility] Work Phone: Urea nitrogen [Mass/Vol] 32 mg/dL above high threshold 6 - 23 SH-Emlmqlp-RR [facility] Work Phone: Otheron 04-01-2020 26 {mL/min/1.73m2} Abnormal >60 MG-Uro logy-[facility] Work Phone: 31 {mL/min/1.73m2} Abnormal >60 MG-Uro logy-[facility] Work Phone: Comment on above: CALCULATIONS OF FABIO MATED GFR ARE PERFORMED USING THE MDRD STUDY EQUATION FOR THE IDMS-TRACEABLE CREATININE METHODS. CLIN CHEM 2007;53:766-72 Metabolic Panelon 03-31-2020 Glucose [Mass/Vol] 140 mg/dL above high threshold 74 - 99 QV-Ledsobo-YT [facility] Work Phone: Glucose [Mass/Vol] 185 mg/dL above high threshold 74 - 99 XM-Hxlwinu-ZS [facility] Work Phone: Anion gap [Moles/Vol] 14 mmol/L 10 - 20 PC-Syctypf-MG [facility] Work Phone: Calcium [Mass/Vol] 7.6 mg/dL below low threshold 8.6 - 10.6 YM-Sxlbhcy-QG [facility] Work Phone: Chloride [Moles/Vol] 103 mmol/L 98 - 107 MG-U rology-[facility] Work Phone: CO2 [Moles/Vol] 24 mmol/L 21 - 32 MG-Urolog y-[facility] Work Phone: Creatinine [Mass/Vol] 2.46 mg/dL above high threshold See Below GJ-Oglhqlq-IB [facility] Work Phone: Comment on above: Reference Range: 0.5 0 - 1.30 Glucose [Mass/Vol] 104 mg/dL above high threshold 74 - 99 ZB-Hkwkfan-XH [facility] Work Phone: Potassium [Moles/Vol] 4.3 mmol/L 3.5 - 5.3 WP-Hiswlxw-CD [facility] Work Phone: Sodium [Moles/Vol] 137 mmol/L 136 - 145 MG-[facility]ro [facility] [place] Work Phone: Urea nitrogen [Mass/Vol] 30 mg/dL above high threshold 6 - 23 VS-Cunummu-WW [facility] Work Phone: Glucose [Mass/Vol] 87 mg/dL 74 - [address] MG-[address] [facility] Work Phone: Glucose [Mass/Vol] 104 mg/dL above high threshold 74 - 99 OH-Jpfnimr-CK [facility] Work Phone: Otheron 03-31-2020 33 {mL/min/1.73m2} Abnormal >[address] MG-U[address] [facility] Work Phone: Comment on above: CALCULATIONS OF FABIO MATED GFR ARE PERFORMED USING THE MDRD STUDY EQUATION FOR THE IDMS-TRACEABLE CREATININE METHODS. CLIN CHEM 2007;53:766-72 27 {mL/min/1.73m2} Abnormal >[address] MG-U[address] [facility] Work Phone: Calcium, Ionized Levelon Calcium, Ionized Level 1.09 mmol/L below low threshold See Below HL-Irlogmy-WE [facility] Work Phone: Comment on above: Reference Range: 1.1 0 - 1.33 The performance characteristics of ionized calcium tested in heparinized plasma or serum have been validated by the individual laboratory site where testing is performed. Testing on heparinized plasma or serum is not approved by the FDA; however, such approval is not necessary. Hematologyon 03-30-2020 Hematocrit (Bld) [Volume fraction] 31.7 % below low threshold See Below AI-Beabhjh-PZ [facility] Work Phone: Comment on above: Reference Range: 41. 0 - 52.0 Hemoglobin (Bld) [Mass/Vol] 10.3 g/dL below low threshold See Below GS-Bxmiesf-RQ [facility] Work Phone: Comment on above: Reference Range: 13. 5 - 17.5 MCV (RBC) [Entitic vol] 79 fL below low threshold 80 - 100 HA-Mztvxwa-NL [facility] Work Phone: Platelets (Bld) [#/Vol] 289 {x10E9/L} 150 - 450 BR-Wzyppqx-JH [facility] Work Phone: [phone] RBC (Bld) [#/Vol] 4.02 {x10E12/L} below low threshold See Below DF-Okpyxht-QX [facility] Work Phone: Comment on above: Reference Range: 4.5 0 - 5.90 WBC (Bld) [#/Vol] 0.2 {/100_WBC} 0.0-0.0 MG- Urology-[facility] Work Phone: WBC (Bld) [#/Vol] 11.8 {x10E9/L} above high threshold 4.4 - 11.3 QY-Xhyilqt-YV [facility] Work Phone: Metabolic Panelon 03-30-2020 Glucose [Mass/Vol] 86 mg/dL 74 - 99 MG-Uro logy-[facility] Work Phone: Anion gap [Moles/Vol] 17 mmol/L 10 - 20 HE-Tekdwqc-IT [facility] Work Phone: Calcium [Mass/Vol] 7.4 mg/dL below low threshold 8.6 - 10.6 WB-Ftoylxc-QK [facility] Work Phone: Chloride [Moles/Vol] 106 mmol/L 98 - 107 MG-U rology-[facility] Work Phone: CO2 [Moles/Vol] 19 mmol/L below low threshold 21 - 32 ET-Wbtzeyi-EW [facility] Work Phone: Creatinine [Mass/Vol] 2.64 mg/dL above high threshold See Below ZR-Tiktxpg-ZI [facility] Work Phone: Comment on above: Reference Range: 0.5 0 - 1.30 Glucose [Mass/Vol] 72 mg/dL below low threshold 74 - 99 AQ-Purdbtf-OL [facility] Work Phone: Potassium [Moles/Vol] 5.0 mmol/L 3.5 - 5.3 SS-Yvrmbam-YN [facility] Work Phone: Sodium [Moles/Vol] 137 mmol/L 136 - 145 MG-Uro logy-[facility] Work Phone: Urea nitrogen [Mass/Vol] 34 mg/dL above high threshold 6 - 23 CZ-Wqrqtzu-DK [facility] Work Phone: Otheron 03-30-2020 US Kidney - bilateral Interpreted by: JACI MORSE OJUEIRM22/08/20 14:25MRN: [id number] Name: HIEN JOHNSON STUDY:US RENAL BILAT; 03/30/2020 12:15 pm INDICATION:rising creatinine. COMPARISON:Renal ultrasound 12/19/2016, CT abdomen and pelvis 09/29/2011 ORDERING CLINICIAN:VIJAY RENAE TECHNIQUE:Multiple images of the kidneys were obtained. FINDINGS:RIGHT KIDNEY:The right kidney measures 9.4 cm in length. The renal corticalechogenicity and thickness are within normal limits. Nohydronephrosis is present; no evidence of nephrolithiasis. Multiplesimple renal cysts are noted in the right kidney including a 1.4 x1.2 x 1.4 cm cyst in the midpole, a smaller 0.8 x 0.7 x 0.7 cm inmidpole, and a 0.9 x 1.4 x 0.7 cm cyst in the lower pole.Adjacent to the right kidney, there is a 2.9 cm hypoechoic structurearising from the right adrenal gland which is stable in appearancefrom the prior CT abdomen and pelvis obtained in 2011, likely adenoma. LEFT KIDNEY:The left kidney measures 10.4 cm in length. The renal corticalechogenicity and thickness are within normal limits. Nohydronephrosis is present; no evidence of nephrolithiasis. BLADDER:The urinary bladder is not visualized secondary to overlying groinwound VAC. IMPRESSION:1. Multiple right-sided simple renal cyst measuring up to 1.4 cm. Nohydronephrosis bilaterally.2. A 2.9 cm hypoechoic focus arising from the right adrenal gland,stable in appearance from prior CT abdomen and pelvis obtained [id number], likely adrenal adenoma. I personally reviewed the images/study and I agree with the findingsas stated. This study was interpreted at [place], [place].Electronically signed by: JACI PRATT 03/30/20 14:25 Normal [facility] Work Phone: Erythrocyte distribution width (RBC) [Ratio] 20.5 % above high threshold See Below [facility] Work Phone: Comment on above: Reference Range: 11. 5 - 14.5 MCHC (RBC) [Mass/Vol] 32.5 g/dL See Below [facility] Work Phone: Comment on above: Reference Range: 32. 0 - 36.0 30 {mL/min/1.73m2} Abnormal >60 MG-[address] [facility] Work Phone: Comment on above: CALCULATIONS OF FABIO MATED GFR ARE PERFORMED USING THE MDRD STUDY EQUATION FOR THE IDMS-TRACEABLE CREATININE METHODS. CLIN CHEM 2007;53:766-72 25 {mL/min/1.73m2} Abnormal >[address] MG-[address] [facility] Work Phone: Phosphorus, Serumon 03-30-20 20 Phosphate [Mass/Vol] 3.0 mg/dL 2.5 - 4.9 MG-U [facility] Work Phone: Comment on above: The performance bren acteristics of phosphorus testing in heparinized plasma have been validated by the individual laboratory site where testing is performed. Testing on heparinized plasma is not approved by the FDA; however, such approval is not necessary. Hematologyon 03-29-2020 Hematocrit (Bld) [Volume fraction] 31.5 % below low threshold See Below RL-Wbutpqw-YO [facility] Work Phone: Comment on above: Reference Range: 41. 0 - 52.0 Hemoglobin (Bld) [Mass/Vol] 10.1 g/dL below low threshold See Below AN-Ugsxotp-QE [facility] Work Phone: Comment on above: Reference Range: 13. 5 - 17.5 MCV (RBC) [Entitic vol] 80 fL 80 - 100 JP-Ejyguya-MD [facility] Work Phone: Platelets (Bld) [#/Vol] 275 {x10E9/L} 150 - 450 GK-Fydjafk-XM [facility] Work Phone: RBC (Bld) [#/Vol] 3.94 {x10E12/L} below low threshold See Below WN-Gyyczgk-KV [facility] Work Phone: Comment on above: Reference Range: 4.5 0 - 5.90 WBC (Bld) [#/Vol] 0.5 {/100_WBC} 0.0-0.0 MG- Urology-[facility] Work Phone: WBC (Bld) [#/Vol] 10.1 {x10E9/L} 4.4 - 11.3 MG- Urology-[facility] Work Phone: Metabolic Panelon 03-29-2020 Potassium [Moles/Vol] 4.8 mmol/L 3.5 - 5.3 LI-Gnsnaiq-AV [facility] Work Phone: Anion gap [Moles/Vol] 17 mmol/L 10 - 20 EO-Zezhxif-RW [facility] Work Phone: Calcium [Mass/Vol] 7.6 mg/dL below low threshold 8.6 - 10.6 OL-Ltfxwqe-RT [facility] Work Phone: Chloride [Moles/Vol] 108 mmol/L above high threshold 98 - 107 GK-Hjbolkq-OB [facility] Work Phone: CO2 [Moles/Vol] 18 mmol/L below low threshold 21 - 32 BV-Zmcjnlr-CT [facility] Work Phone: Creatinine [Mass/Vol] 3.36 mg/dL above high threshold See Below XL-Szbxlii-SD [facility] Work Phone: Comment on above: Reference Range: 0.5 0 - 1.30 Glucose [Mass/Vol] 84 mg/dL 74 - 99 MG-Uro logy-[facility] Work Phone: Potassium [Moles/Vol] 5.0 mmol/L 3.5 - 5.3 GC-Eavgbzq-OI [facility] Work Phone: Sodium [Moles/Vol] 138 mmol/L 136 - 145 MG-Uro logy-[facility] Work Phone: Urea nitrogen [Mass/Vol] 43 mg/dL above high threshold 6 - 23 CV-Jpvnssn-HC [facility] Work Phone: Otheron 03-29-2020 Erythrocyte distribution width (RBC) [Ratio] 21.0 % above high threshold See Below BX-Quizmze-HV [facility] Work Phone: Comment on above: Reference Range: 11. 5 - 14.5 MCHC (RBC) [Mass/Vol] 32.1 g/dL See Below NR-Pymjqha-HA [facility] Work Phone: Comment on above: Reference Range: 32. 0 - 36.0 23 {mL/min/1.73m2} Abnormal >60 MG-Uro logy-[facility] Work Phone: Comment on above: CALCULATIONS OF FABIO MATED GFR ARE PERFORMED USING THE MDRD STUDY EQUATION FOR THE IDMS-TRACEABLE CREATININE METHODS. CLIN CHEM 2007;53:766-72 19 {mL/min/1.73m2} Abnormal >60 MG-Uro logy-[facility] Work Phone: Creatine Kinase, Levelon CK [Catalytic activity/Vol] 70 U/L 0 - 325 NA-Dktklon-FK [facility] Work Phone: Cult, Urineon 03-28-2020 Bacteria identified Cx Nom (U) MICRSLT [facility] Work Phone: Comment on above: PATIENT: NUBIA JOHNSON LOCATION: [facility] [id number]#: [id number] : 64 AGE: SEX: M ORDERED BY: SAYRA RENAE: URINE COLLECTED: 03/28/20 16:51ANTIBIOTICS AT [facility].: RECEIVED : 03/28/20 17:39SITE: R E S U L T S URINE CULTURE,BACTERIAL FINAL 03/29/20 15:01 NO GROWTH Hematologyon 03-28-2020 Hematocrit (Bld) [Volume fraction] 31.9 % below low threshold See Below [facility] Work Phone: Comment on above: Reference Range: 41. 0 - 52.0 Hemoglobin (Bld) [Mass/Vol] 10.4 g/dL below low threshold See Below [facility] Work Phone: Comment on above: Reference Range: 13. 5 - 17.5 MCV (RBC) [Entitic vol] 79 fL below low threshold 80 - 100 [facility] Work Phone: Platelets (Bld) [#/Vol] 277 {x10E9/L} 150 - 450 [facility] Work Phone: RBC (Bld) [#/Vol] 4.04 {x10E12/L} below low threshold See Below [facility] Work Phone: Comment on above: Reference Range: 4.5 0 - 5.90 WBC (Bld) [#/Vol] 0.2 {/100_WBC} 0.0-0.0 [facility] Work Phone: WBC (Bld) [#/Vol] 10.8 {x10E9/L} 4.4 - 11.3 [facility] Work Phone: Metabolic Panelon 03-28-2020 Anion gap [Moles/Vol] 16 mmol/L 10 - 20 JJ-Konwrll-KY [facility] Work Phone: Calcium [Mass/Vol] 7.8 mg/dL below low threshold 8.6 - 10.6 FA-Ugigmxe-WO [facility] Work Phone: Chloride [Moles/Vol] 108 mmol/L above high threshold 98 - 107 UR-Axaszjy-TY [facility] Work Phone: CO2 [Moles/Vol] 17 mmol/L below low threshold 21 - 32 MB-Ecznndp-JB [facility] Work Phone: Creatinine [Mass/Vol] 3.65 mg/dL above high threshold See Below CJ-Ahxgosx-BY [facility] Work Phone: Comment on above: Reference Range: 0.5 0 - 1.30 Glucose [Mass/Vol] 86 mg/dL 74 - 99 MG-Uro logy-[facility] Work Phone: Potassium [Moles/Vol] 5.7 mmol/L above high threshold 3.5 - 5.3 XT-Emijgxo-JR [facility] Work Phone: Sodium [Moles/Vol] 135 mmol/L below low threshold 136 - 145 XJ-Jodiyqp-ZC [facility] Work Phone: Urea nitrogen [Mass/Vol] 45 mg/dL above high threshold 6 - 23 XI-Gwwzfxz-RO [facility] Work Phone: Anion gap [Moles/Vol] 16 mmol/L 10 - 20 TP-Qadshrd-DH [facility] Work Phone: Comment on above: K CALLED RB TO NISHI SHARMA , 03/28/2020 08:26 Calcium [Mass/Vol] 7.8 mg/dL below low threshold 8.6 - 10.6 VH-Ugtpoud-EW [facility] Work Phone: Comment on above: K CALLED RB TO NISHI SHARMA , 03/28/2020 08:26 Chloride [Moles/Vol] 107 mmol/L 98 - 107 MG-U rology-[facility] Work Phone: Comment on above: K CALLED RB TO NISHI SHARMA , 03/28/2020 08:26 CO2 [Moles/Vol] 17 mmol/L below low threshold 21 - 32 EN-Ywyepgt-OK [facility] Work Phone: Comment on above: K CALLED RB TO NISHI SHARMA , 03/28/2020 08:26 Creatinine [Mass/Vol] 3.75 mg/dL above high threshold See Below VS-Jejwurw-ZY [facility] Work Phone: Comment on above: Reference Range: 0.5 0 - 1.30 K CALLED RB TO NISHI SHARMA , 03/28/2020 08:26 Glucose [Mass/Vol] 94 mg/dL 74 - 99 MG-Uro logy-[facility] Work Phone: Comment on above: K CALLED RB TO NISHI SHARMA , 03/28/2020 08:26 Potassium [Moles/Vol] 6.2 mmol/L Critically high 3.5 - 5.3 BE-Zrfdhhd-DD [facility] Work Phone: Comment on above: K CALLED RB TO NISHI SHARMA , 03/28/2020 08:26 K CALLED RB TO NISHI SHARMA , 03/28/2020 08:26 Sodium [Moles/Vol] 134 mmol/L below low threshold 136 - 145 WH-Pvlndjq-DO [facility] Work Phone: Comment on above: K CALLED RB TO NISHI SHARMA , 03/28/2020 08:26 Urea nitrogen [Mass/Vol] 50 mg/dL above high threshold 6 - 23 EY-Bvidkya-XM [facility] Work Phone: Comment on above: K CALLED RB TO NISHI SHARMA , 03/28/2020 08:26 Otheron 03-28-2020 17 {mL/min/1.73m2} Abnormal >60 MG-Uro logy-[facility] Work Phone: 21 {mL/min/1.73m2} Abnormal >60 MG-Uro logy-[facility] Work Phone: Comment on above: CALCULATIONS OF FABIO MATED GFR ARE PERFORMED USING THE MDRD STUDY EQUATION FOR THE IDMS-TRACEABLE CREATININE METHODS. CLIN CHEM 2007;53:766-72 Sodium/Creatinine (U) [Ratio] 300 {mmol/g_Creat} See Below [facility] Work Phone: Comment on above: Reference Range: Not Established Erythrocyte distribution width (RBC) [Ratio] 20.4 % above high threshold See Below [facility] Work Phone: Comment on above: Reference Range: 11. 5 - 14.5 MCHC (RBC) [Mass/Vol] 32.6 g/dL See Below [facility] Work Phone: Comment on above: Reference Range: 32. 0 - 36.0 21 {mL/min/1.73m2} Abnormal >[address] MG-[address] [facility] Work Phone: Comment on above: CALCULATIONS OF FABIO MATED GFR ARE PERFORMED USING THE MDRD STUDY EQUATION FOR THE IDMS-TRACEABLE CREATININE METHODS. CLIN CHEM 2007;53:766-72 K CALLED RB TO NISHI SHARMA , 03/28/2020 08:26 17 {mL/min/1.73m2} Abnormal >60 MG-[address] [facility] Work Phone: Comment on above: K CALLED RB TO NISHI SHARMA , 03/28/2020 08:26 URINALYSIS WITH CULTURE IF I NDICATEDon 03-28-2020 Appearance (U) CLEAR CLEAR [facility] Work Phone: Color (U) STRAW See Below [facility] Work Phone: Comment on above: SOURCE: Reference Ra nge: STRAW,YELLOW Glucose Ql (U) Negative NEGATIVE [facility] Work Phone: Ketones Ql (U) Negative NEGATIVE [facility] Work Phone: Leukocyte esterase Test strip Ql (U) SMALL (1+) Abnormal NEGATIVE [facility] Work Phone: pH (U) 5.0 [pH] 5.0 - 8.0 [facility] Work Phone: Protein (U) [Mass/Vol] Negative NEGATIVE [facility] Work Phone: [phone] RBC (U) [#/Vol] SMALL (1+) Abnormal NEGATIVE [facility] Work Phone: Specific gravity (U) [Rel density] 1.008 1 See Below [facility] Work Phone: Comment on above: Reference Range: 1.0 05 - 1.035 URINALYSIS WITH CULTURE IF INDICATED Negative NEGATIVE [facility] Work Phone: URINALYSIS WITH CULTURE IF INDICATED <2.0 0.0 - 1.9 [facility] Work Phone: Urinalysison 03-28-2020 Creatinine (U) [Mass/Vol] 34.7 mg/dL See Below [facility] Work Phone: Comment on above: Reference Range: 20. 0 - 370.0 Sodium (U) [Moles/Vol] 104 mmol/L See Below [facility] Work Phone: Comment on above: Reference Range: Not Established Urinalysis, Microscopicon Bacteria LM.HPF (Urine sed) [#/Area] 1+ Abnormal [facility] Work Phone: Urinalysis, Microscopic 1+ [facility] Work Phone: Urinalysis, Microscopic 11 {/HPF} Abnormal 0-5 [facility] Work Phone: Urinalysis, Microscopic 8 {/HPF} Abnormal 0-5 [facility] Work Phone: Comment on above: SOURCE: Hematologyon 03-27-2020 Hematocrit (Bld) [Volume fraction] 35.0 % below low threshold See Below TC-Johlvjb-VF [facility] Work Phone: Comment on above: Reference Range: 41. 0 - 52.0 Hemoglobin (Bld) [Mass/Vol] 11.3 g/dL below low threshold See Below ZE-Awsnpea-RZ [facility] Work Phone: Comment on above: Reference Range: 13. 5 - 17.5 MCV (RBC) [Entitic vol] 79 fL below low threshold 80 - 100 WM-Oberlqd-DW [facility] Work Phone: Platelets (Bld) [#/Vol] 318 {x10E9/L} 150 - 450 PY-Wzhlfap-DH [facility] Work Phone: [phone] RBC (Bld) [#/Vol] 4.43 {x10E12/L} below low threshold See Below JW-Lugblxm-ZR [facility] Work Phone: Comment on above: Reference Range: 4.5 0 - 5.90 WBC (Bld) [#/Vol] 0.0 {/100_WBC} 0.0-0.0 MG- Urology-[facility] Work Phone: WBC (Bld) [#/Vol] 14.5 {x10E9/L} above high threshold 4.4 - 11.3 YO-Okbuekp-QW [facility] Work Phone: Metabolic Panelon 03-27-2020 Glucose [Mass/Vol] 154 mg/dL above high threshold 74 - 99 AQ-Ftlqrzj-WW [facility] Work Phone: Potassium [Moles/Vol] 6.3 mmol/L Critically high 3.5 - 5.3 WI-Coehvsw-VT [facility] Work Phone: Comment on above: BERNABE Aleman CALLED RB TO VERONICA JUAREZ, 03/27/2020 18:32 BERNABE Aleman CALLED RB TO VERONICA JUAREZ, 03/27/2020 18:32 Glucose [Mass/Vol] 166 mg/dL above high threshold 74 - 99 FY-Fjgurdo-PK [facility] Work Phone: Glucose [Mass/Vol] 179 mg/dL above high threshold 74 - 99 GX-Lfstirx-II [facility] Work Phone: Glucose [Mass/Vol] 209 mg/dL above high threshold 74 - 99 FQ-Byuahwm-RJ [facility] Work Phone: Glucose [Mass/Vol] 76 mg/dL 74 - 99 MP-Madi b [facility] Work Phone: Anion gap [Moles/Vol] 15 mmol/L 10 - 20 ZF-Ghsjwnb-IF [facility] Work Phone: Comment on above: CRIT K CALLED RB TO JAE CASTELLANOSSOLO, 03/27/2020 08:44 Calcium [Mass/Vol] 8.1 mg/dL below low threshold 8.6 - 10.6 XK-Rvemzwt-XM [facility] Work Phone: Comment on above: CRIT K CALLED RB TO JAE CASTELLANOSSOLO, 03/27/2020 08:44 Chloride [Moles/Vol] 108 mmol/L above high threshold 98 - 107 BD-Osofrai-PD [facility] Work Phone: Comment on above: CRIT K CALLED RB TO JAE CASTELLANOSSOLO, 03/27/2020 08:44 CO2 [Moles/Vol] 19 mmol/L below low threshold 21 - 32 JF-Swvjgru-BF [facility] Work Phone: Comment on above: CRIT K CALLED RB TO JAE CASTELLANOSSOLO, 03/27/2020 08:44 Creatinine [Mass/Vol] 2.86 mg/dL above high threshold See Below HY-Idysmys-IM [facility] Work Phone: Comment on above: Reference Range: 0.5 0 - 1.30 CRIT K CALLED RB TO JAE CASTELLANOSSOLO, 03/27/2020 08:44 Glucose [Mass/Vol] 77 mg/dL 74 - 99 MG-Uro logy-UH [facility] Work Phone: Comment on above: CRIT K CALLED RB TO JAE CASTELLANOSSOLO, 03/27/2020 08:44 Potassium [Moles/Vol] 7.8 mmol/L Critically high 3.5 - 5.3 SL-Bzfvpkr-JK [facility] Work Phone: [phone] Comment on above: BERNABE Aleman CALLED RB TO JAE WILLIAMSON, 03/27/2020 08:44 BERNABE Aleman CALLED RB TO JAE WILLIAMSON, 03/27/2020 08:44 Sodium [Moles/Vol] 134 mmol/L below low threshold 136 - 145 YS-Lezpssa-JK [facility] Work Phone: [phone] Comment on above: BERNABE Aleman CALLED RB TO JAE WILLIAMSON, 03/27/2020 08:44 Urea nitrogen [Mass/Vol] 42 mg/dL above high threshold 6 - 23 UH-Rxjstnf-WC [facility] Work Phone: [phone] Comment on above: BERNABE Aleman CALLED RB TO JAE WILLIAMSON, 03/27/2020 08:44 Otheron 03-27-2020 70 1 JF-Cdagsmk-QP [facility] Work Phone: [phone] QN-Dbzwqym-UK [facility] Work Phone: [phone] [email or web address] ?RetrieveTestByDateTime?P rlcvwnYY=[id number]&Date=0 11-29-2019&Time=09%3a13%3a 21%3a00&TestType=ECG&Site =1&OutputType=PDF&Ext=PDF BK-Wfdejuf-AJ [facility] Work Phone: [phone] Normal sinus rhythm with sinus arrhythmia RJ-Yexooto-RF [facility] Work Phone: [phone] DG-Hpuihvl-LO [facility] Work Phone: [phone] KB-Daciawn-PC [facility] Work Phone: [phone] DB-Cwsxwqw-YU [facility] Work Phone: [phone] RT-Ulardxu-JW [facility] Work Phone: [phone] FR-Giaftvp-SI [facility] Work Phone: [phone] RQ-Ewiakds-VS [facility] Work Phone: [phone] ED-Bwbqptg-UT [facility] Work Phone: [phone] MA-Rfultrs-DX [facility] Work Phone: [phone] GJ-Ezvzxcu-FZ [facility] Work Phone: [phone] RV-Obdccsf-KN [facility] Work Phone: [phone] NF-Rahsflx-NT [facility] Work Phone: [phone] IS-Kiqtntn-BG [facility] Work Phone: Erythrocyte distribution width (RBC) [Ratio] 20.6 % above high threshold See Below CF-Reqowct-UZ [facility] Work Phone: Comment on above: Reference Range: 11. 5 - 14.5 MCHC (RBC) [Mass/Vol] 32.3 g/dL See Below VX-Ndmncxb-DP [facility] Work Phone: Comment on above: Reference Range: 32. 0 - 36.0 28 {mL/min/1.73m2} Abnormal >60 MG-Uro logy-[facility] Work Phone: Comment on above: CALCULATIONS OF FABIO MATED GFR ARE PERFORMED USING THE MDRD STUDY EQUATION FOR THE IDMS-TRACEABLE CREATININE METHODS. CLIN CHEM 2007;53:766-72 BERNABE Aleman CALLED RB TO JAE WILLIAMSON, 03/27/2020 08:44 23 {mL/min/1.73m2} Abnormal >60 MG-Uro logy-[facility] Work Phone: Comment on above: CRIT K CALLED RB TO JAE WILLIAMSON, 03/27/2020 08:44 Metabolic Panelon 03-26-2020 Glucose [Mass/Vol] 86 mg/dL 74 - 99 MP-Madi b [facility] Work Phone: Glucose [Mass/Vol] 74 mg/dL 74 - 99 MP-Madi b [facility] Work Phone: Otheron 03-26-2020 Name HIEN JOHNSON Pathologist: KRISTY LAZO, MDDate of Procedure: 03/26/2020Date Received: 03/26/2020Date Reported 04/05/2020Submitting Physician: LONNIE HARDWICK MDLocation: TOWER 9 Other External # FINAL DIAGNOSISA. SKIN, PENIS, EXCISION: -- SKIN AND SUBCUTANEOUS TISSUE WITH PATCHY EDEMA AND FIBROSIS AND FOCALFOREIGN BODY GIANT CELL REACTION WITH ASSOCIATED POLARIZABLE FOREIGN MATERIALB. SKIN, SUPRAPUBIC, EXCISION: -- SKIN AND SUBCUTANEOUS TISSUE WITH INFLAMMATORY CHANGES CONSISTENT WITHHIDRADENITIS SUPPURATIVAThe gross and/or microscopic findings were reviewed in conjunction withsurgical pathology fellow, Toma Francisco MD. Electronically Signed Out By KRISTY LAZO MD/[facility]FF[facility] HOSPITALBy the signature on this report, the individual or group listed as making theFinal Interpretation/Diagnosis certifies that they have reviewed this case. Clinical History:Hidradenitis, genital lymphedemaSpecimens Submitted As:A: PENIS SKIN B: SUPRAPUBIC SKIN Gross Description:A: Received in formalin, labeled with the patient's name and hospital numberand A. penis skin , is an un-oriented segment of skin and subcutaneous tissuemeasuring 9.3 x 6.5 x 2.5 cm. The skin surface is unremarkable. The deep andlateral margins are inked blue. The cut surface reveals bentley-white firm areas.[employer] sections are submitted in 2 cassettes.AXQ/TMSB: Received in formalin, labeled with the patient's name and hospital numberand B. suprapubic skin , is an un-oriented segment of skin and subcutaneoustissue measuring 17 x 8.7 x 2.8 cm. On the skin surface are multiple oval firmareas measuring up to 2 cm in greatest dimension abutting the lateral margin.The deep and lateral margins are inked blue. The cut surface reveals bentley-whitefirm areas. [employer] sections are submitted in 2 cassettes.AXQ/TMSaxq/2019 XE-Lpqveyo-OL [facility] Work Phone: BASIC METABOLIC PANELon 09-0 Anion gap [Moles/Vol] 12 mmol/L Normal 10 - 20 [place] [facility] Comment on above: Performed By: #### B MP #### [address] [id number] Calcium [Mass/Vol] 8.4 mg/dL Low 8.6 - 10.3 [facility] Comment on above: Performed By: #### B MP #### [address] [id number] Chloride [Moles/Vol] 106 mmol/L Normal 98 - 107 [facility] Comment on above: Performed By: #### B MP #### [address] [id number] Creatinine [Mass/Vol] 2.59 mg/dL High 0.50 - 1.30 [facility] Comment on above: Performed By: #### B MP #### [address] [id number] GFR- AM. 31 mL/min/1.73m2 Abnormal >60 [facility] Comment on above: Result Comment: CALC ULATIONS OF ESTIMATED GFR ARE PERFORMED USING THE MDRD STUDY EQUATION FOR THE IDMS-TRACEABLE CREATININE METHODS. CLIN CHEM 2007;53:766-72 Performed By: #### B MP #### [address] [id number] GFR-NON AM. 26 mL/min/1.73m2 Abnormal >60 [facility] Comment on above: Performed By: #### B MP #### [address] [id number] Glucose [Mass/Vol] 104 mg/dL High 74 - 99 [facility] Comment on above: Performed By: #### B MP #### [address] [id number] HCO3 (Bld) [Moles/Vol] 21 mmol/L Normal 21 - 32 [facility] Comment on above: Performed By: #### B MP #### [address] [id number] Potassium [Moles/Vol] 5.6 mmol/L High 3.5 - 5.3 [facility] Comment on above: Performed By: #### B MP #### [address] [id number] Sodium [Moles/Vol] 133 mmol/L Low 136 - 145 [facility] Comment on above: Performed By: #### B MP #### [address] [id number] Urea nitrogen [Mass/Vol] 42 mg/dL High 6 - 23 [facility] Comment on above: Performed By: #### B MP #### [address] [id number] COAGULATION SCREENon 020 aPTT Coag (Bld) [Time] 33 s Normal 25 - 35 [facility] Comment on above: Result Comment: THE APTT IS NO LONGER USED FOR MONITORING UNFRACTIONATED HEPARIN THERAPY. FOR MONITORING HEPARIN THERAPY, USE THE HEPARIN ASSAY. Performed By: #### C OAGS #### [address] [id number] INR Coag (PPP) [Relative time] 1.4 {INR} High 0.9 - 1.1 [facility] Comment on above: Performed By: #### C OAGS #### [address] [id number] PT Coag (PPP) [Time] 16.8 s High 10.1 - 13.3 [facility] Comment on above: Performed By: #### C OAGS #### [address] [id number] Hematologyon 03-25-2020 aPTT Coag (PPP) [Time] 33 {sec} 25 - 35 [facility] Work Phone: Comment on above: THE APTT IS NO LONGE R USED FOR MONITORING UNFRACTIONATED HEPARIN THERAPY. FOR MONITORING HEPARIN THERAPY, USE THE HEPARIN ASSAY. INR Coag (PPP) [Relative time] 1.4 {INR} above high threshold 0.9 - 1.1 [facility] Work Phone: PT Coag (PPP) [Time] 16.8 {sec} above high threshold See Below [facility] Work Phone: Comment on above: Reference Range: 10. 1 - 13.3 Metabolic Panelon 03-25-2020 Anion gap [Moles/Vol] 12 mmol/L 10 - 20 [facility] Work Phone: Calcium [Mass/Vol] 8.4 mg/dL below low threshold 8.6 - 10.3 [facility] Work Phone: Chloride [Moles/Vol] 106 mmol/L 98 - 107 [facility] Work Phone: CO2 [Moles/Vol] 21 mmol/L 21 - 32 [facility] Work Phone: Creatinine [Mass/Vol] 2.59 mg/dL above high threshold See Below [facility] Work Phone: Comment on above: Reference Range: 0.5 0 - 1.30 Glucose [Mass/Vol] 104 mg/dL above high threshold 74 - 99 [facility] Work Phone: Potassium [Moles/Vol] 5.6 mmol/L above high threshold 3.5 - 5.3 [facility] Work Phone: Sodium [Moles/Vol] 133 mmol/L below low threshold 136 - 145 [facility] Work Phone: Urea nitrogen [Mass/Vol] 42 mg/dL above high threshold 6 - 23 [facility] Work Phone: Otheron 03-25-2020 31 {mL/min/1.73m2} Abnormal >60 [facility] Work Phone: Comment on above: CALCULATIONS OF FABIO MATED GFR ARE PERFORMED USING THE MDRD STUDY EQUATION FOR THE IDMS-TRACEABLE CREATININE METHODS. CLIN CHEM 2007;53:766-72 26 {mL/min/1.73m2} Abnormal >60 [facility] Work Phone: Otheron 03-23-2020 NOT DETECTED See Below [facility] Work Phone: Comment on above: SOURCE: Nasal, Nasop haryngealReference Range: Not DetectedThis assay is designed to detect the N, ORF1ab and/or S genes of SARS-CoV-2 via nucleic acid amplification. A Negative (NOT DETECTED) result does not preclude 2019-nCoV infection since the adequacy of sample collection and/or low viral burden may result in presence of viral nucleic acids below the clinical sensitivity of this test method. Negative (NOT DETECTED) result should not be used as the sole basis for treatment or other patient management decisions. Rather negative results should be combined with clinical observations, patient history, and epidemiological information to make patient management decisions.Fact sheet for providers: https://www.fda.gov/media/033652/downloadFact sheet for patients: https://www.fda.gov/media/384869/downloadThis test has received FDA Emergency Use Authorization (EUA) and has been verified by [facility] ([facility]). This test is only authorized for the duration of time that circumstances exist to justify the authorization of the emergency use of in vitro diagnostic tests for the detection of SARS-CoV-2 virus and/or diagnosis of COVID-19 infection under section 564(b)(1) of the Act, 21 U.S.C. 360bbb-3(b)(1), unless the authorization is terminated or revoked sooner. [facility] is certified under CLIA-88 as qualified to perform high complexity testing. Testing is performed in the [facility] laboratories located at [address] [place] [address]. Otheron 03-18-2020 RFA Carotid artery - bilateral and Cerebral artery - bilateral Views W contrast IA Interpreted by: VANDANA RODRIGUEZ [id number]/28/20 06:41MRN: [id number] Name: HIEN JOHNSON STUDY:US CAROTID BILATERAL DUPLEX; 03/18/2020 3:58 pm INDICATION:PREOP . COMPARISON:None. ORDERING CLINICIAN:LOREN LUBIN TECHNIQUE:Grayscale, color and spectral Doppler ultrasound evaluation of thebilateral carotid system. FINDINGS:RIGHT:Grayscale ultrasound reveals minimal atherosclerotic plaque at theorigin of the right internal carotid artery extending from thecommon carotid artery. There is no narrowing by color Doppler. Thereare no significantly elevated velocities in the internal carotidartery. RIGHT SIDE PEAK SYSTOLIC VELOCITY:Peak proximal systolic ICA velocity on the right is 105 cm/s. Right common and external carotid waveforms are within normal limits. RIGHT VERTEBRAL ARTERY:The right vertebral artery demonstrates proximal normal anterogradeflow. LEFT:Grayscale ultrasound reveals minimal atherosclerotic plaque at theorigin of the left internal carotid artery extending from the commoncarotid artery. There is no narrowing by color Doppler. There are nosignificantly elevated velocities in the internal carotid artery. LEFT SIDE PEAK SYSTOLIC VELOCITY:Peak proximal systolic ICA velocity on the left is 62 cm/s. Left common and external carotid waveforms are within normal limits. LEFT VERTEBRAL ARTERY:The left vertebral artery demonstrates proximal normal anterogradeflow. IMPRESSION:Minimal bilateral carotid plaque; no stenosis greater than 50%. The velocity criteria are extrapolated from diameter data as definedby the Society of Radiologists in Ultrasound Consensus ConferenceRadiology 2003; 229;340-346.Electronicall y signed by: VANDANA BROOKS 03/19/20 06:[address] [facility] Work Phone: US CAROTID BILATERAL DUPLEXo n 03-18-2020 US CAROTID BILATERAL DUPLEX Patient Name: HIEN JOHNSON STUDY: US CAROTID BILATERAL DUPLEX; 03/18/2020 3:58 pm INDICATION: PREOP . COMPARISON: None. ACCESSION NUMBER(S): [id number] ORDERING CLINICIAN: LOREN LUBIN TECHNIQUE: Grayscale, color and spectral Doppler ultrasound evaluation of the bilateral carotid system. FINDINGS: RIGHT: Grayscale ultrasound reveals minimal atherosclerotic plaque at the origin of the right internal carotid artery extending from the common carotid artery. There is no narrowing by color Doppler. There are no significantly elevated velocities in the internal carotid artery. RIGHT SIDE PEAK SYSTOLIC VELOCITY: Peak proximal systolic ICA velocity on the right is 105 cm/s. Right common and external carotid waveforms are within normal limits. RIGHT VERTEBRAL ARTERY: The right vertebral artery demonstrates proximal normal anterograde flow. LEFT: Grayscale ultrasound reveals minimal atherosclerotic plaque at the origin of the left internal carotid artery extending from the common carotid artery. There is no narrowing by color Doppler. There are no significantly elevated velocities in the internal carotid artery. LEFT SIDE PEAK SYSTOLIC VELOCITY: Peak proximal systolic ICA velocity on the left is 62 cm/s. Left common and external carotid waveforms are within normal limits. LEFT VERTEBRAL ARTERY: The left vertebral artery demonstrates proximal normal anterograde flow. IMPRESSION: Minimal bilateral carotid plaque; no stenosis greater than 50%. The velocity criteria are extrapolated from diameter data as defined by the Society of Radiologists in Ultrasound Consensus Conference Radiology 2003; 229;340-346. Electronically signed by: VANDANA BROOKS MD [facility] Cult, Urineon 03-16-2020 Bacteria identified Cx Nom (U) PATIENT: HIEN JOHNSON LOCATION: [facility] RADHA#: [id number] : 64 AGE: SEX: M ORDERED BY: MARCO HARDWICK: URINE COLLECTED: 03/16/20 16:03ANTIBIOTICS AT MALIA.: RECEIVED : 03/16/20 18:58SITE: R E S U L T S URINE CULTURE,BACTERIAL FINAL 03/17/20 13:10 ISOLATE1 : Streptococcus viridans Group 20,000-80,000 CFU/ML Abnormal [facility] Work Phone: Hematologyon 03-16-2020 ABO group Nom (Bld) B [facility] Work Phone: aPTT Coag (PPP) [Time] 32 {sec} 25 - 35 [facility] Work Phone: Comment on above: Note new reference rambo banda as of 12/16/2019. THE APTT IS NO LONGER USED FOR MONITORING UNFRACTIONATED HEPARIN THERAPY. FOR MONITORING HEPARIN THERAPY, USE THE HEPARIN ASSAY. Blood group antibody screen Ql Negative [facility] Work Phone: Hematocrit (Bld) [Volume fraction] 35.0 % below low threshold See Below [facility] Work Phone: Comment on above: Reference Range: 41. 0 - 52.0 Hemoglobin (Bld) [Mass/Vol] 11.1 g/dL below low threshold See Below [employer] Work Phone: Comment on above: Reference Range: 13. 5 - 17.5 INR Coag (PPP) [Relative time] 1.6 {INR} above high threshold 0.9 - 1.1 [employer] [facility] Work Phone: MCV (RBC) [Entitic vol] 80 fL 80 - 100 [employer] [facility] Work Phone: Platelets (Bld) [#/Vol] 335 {x10E9/L} 150 - 450 [employer] Work Phone: PT Coag (PPP) [Time] 18.3 {sec} above high threshold See Below [employer] Work Phone: Comment on above: Reference Range: 10. 1 - 13.3 Note new reference range as of 12/16/2019. RBC (Bld) [#/Vol] 4.39 {x10E12/L} below low threshold See Below [employer] Work Phone: Comment on above: Reference Range: 4.5 0 - 5.90 Rh immune globulin screen (Bld) [Interp] Positive [facility] Work Phone: WBC (Bld) [#/Vol] 10.5 {x10E9/L} 4.4 - 11.3 [facility] Work Phone: WBC (Bld) [#/Vol] 0.2 {/100_WBC} 0.0-0.0 [facility] Work Phone: Metabolic Panelon 03-16-2020 Anion gap [Moles/Vol] 15 mmol/L 10 - 20 [employer] Work Phone: Calcium [Mass/Vol] 8.1 mg/dL below low threshold 8.6 - 10.6 [facility] Work Phone: Chloride [Moles/Vol] 109 mmol/L above high threshold 98 - 107 [facility] Work Phone: CO2 [Moles/Vol] 18 mmol/L below low threshold 21 - 32 [facility] Work Phone: Creatinine [Mass/Vol] 2.79 mg/dL above high threshold See Below [facility] Work Phone: Comment on above: Reference Range: 0.5 0 - 1.30 Glucose [Mass/Vol] 76 mg/dL 74 - 99 [facility] [employer] Work Phone: Potassium [Moles/Vol] 5.9 mmol/L above high threshold 3.5 - 5.3 [facility] Work Phone: Sodium [Moles/Vol] 136 mmol/L 136 - 145 [facility] [employer] Work Phone: Urea nitrogen [Mass/Vol] 47 mg/dL above high threshold 6 - 23 [facility] Work Phone: [facility] 03-16-2020 Erythrocyte distribution width (RBC) [Ratio] 20.5 % above high threshold See Below [facility] Work Phone: Comment on above: Reference Range: 11. 5 - 14.5 MCHC (RBC) [Mass/Vol] 31.7 g/dL below low threshold See Below [facility] Work Phone: Comment on above: Reference Range: 32. 0 - 36.0 29 {mL/min/1.73m2} Abnormal >60 [facility] Work Phone: Comment on above: CALCULATIONS OF FABIO MATED GFR ARE PERFORMED USING THE MDRD STUDY EQUATION FOR THE IDMS-TRACEABLE CREATININE METHODS. CLIN CHEM 2007;53:766-72 24 {mL/min/1.73m2} Abnormal >60 [facility] [employer] Work Phone: Urinalysison 03-16-2020 Appearance (U) CLEAR CLEAR [facility] Work Phone: Color (U) YELLOW See Below [facility] [employer] Work Phone: Comment on above: Reference Range: STR AW,YELLOW Glucose Ql (U) Negative NEGATIVE [employer] Work Phone: Ketones Ql (U) Negative NEGATIVE [facility] Work Phone: Leukocyte esterase Test strip Ql (U) Negative NEGATIVE [facility] Work Phone: pH (U) 5.0 [pH] 5.0 - 8.0 [facility] Work Phone: Protein (U) [Mass/Vol] 100 (2+) Abnormal NEGATIVE [facility] Work Phone: RBC (U) [#/Vol] SMALL (1+) Abnormal NEGATIVE [facility] [employer] Work Phone: Specific gravity (U) [Rel density] 1.014 1 See Below [facility] [employer] Work Phone: Comment on above: Reference Range: 1.0 05 - 1.035 Urinalysis Negative NEGATIVE [employer] Work Phone: Urinalysis <2.0 0.0 - 1.9 [employer] Work Phone: Urinalysis, Microscopicon Urinalysis, Microscopic 12 {/HPF} Abnormal 0-5 [facility] Work Phone: Urinalysis, Microscopic 1 {/HPF} [facility] Work Phone: Urinalysis, Microscopic 2 {/HPF} 0-5 [facility] Work Phone: Urinalysis, Microscopic OCC Abnormal [facility] Work Phone: Urinalysis, Microscopic 1+ [facility] Work Phone: Antinuclear Antibodyon 03-06 Antinuclear Antibody 0.5 U Normal <=1.0 (Negative) [facility] Comment on above: Result Comment: Test Performed by:[place] [address] Performed By: #### C BCDIF, SEDR, C-4, C-3, DNADS, MYPER, CH50, RITA, CCPAB, [id number], ANCA ####Unless otherwise noted, all testing performed by [address] [id number]: [id number] Director: Zechariah Mir M.D. C-3 Complementon 03-06-2018 C-3 Complement 148.7 mg/dL Normal 73.0-183.0 [facility] Comment on above: Result Comment: Test Performed by [facility] [address] [place] [address] Performed By: #### C BCDIF, SEDR, C-4, C-3, DNADS, MYPER, CH50, RITA, CCPAB, [id number], ANCA ####Unless otherwise noted, all testing performed by [address] [phone]: [id number] Director: Zechariah Clarke, M.D. C-4 Complementon 03-06-2018 C-4 Complement 44.3 mg/dL Normal 16.0-47.0 [facility] Comment on above: Result Comment: Test Performed by [facility] [address] [place] [address] Performed By: #### C BCDIF, SEDR, C-4, C-3, DNADS, MYPER, CH50, RITA, CCPAB, [id number], ANCA ####Unless otherwise noted, all testing performed by [address] [id number]: [id number] Director: Zechariah Mir M.D. CBC and Differentialon 03-06 Basophils Auto #/vol (Bld) 0.2 K/mcL Invalid Interpretation Code 0 - 0.2 [facility] Basophils/100 WBC Auto (Bld) 1.0 % Normal [facility] Comment on above: Performed By: #### C BCDIF, SEDR, C-4, C-3, DNADS, MYPER, CH50, RITA, CCPAB, [id number], ANCA ####Unless otherwise noted, all testing performed by [address] [id number]: [id number] Director: Zechariah Mir M.D. Eosinophils Auto #/vol (Bld) 0.1 K/mcL Invalid Interpretation Code 0 - 0.5 [facility] Eosinophils/100 WBC Auto (Bld) 0.9 % Normal [facility] Comment on above: Performed By: #### C BCDIF, SEDR, C-4, C-3, DNADS, MYPER, CH50, RITA, CCPAB, [id number], ANCA ####Unless otherwise noted, all testing performed by [address] [id number]: [id number] Director: Zechariah Mir M.D. Erythrocyte distribution width Auto Ratio (RBC) 15.3 % High 10-14.3 [facility] Comment on above: Performed By: #### C BCDIF, SEDR, C-4, C-3, DNADS, MYPER, CH50, RITA, CCPAB, [id number], ANCA ####Unless otherwise noted, all testing performed by [place] [phone]: [id number] Director: Zechariah Mir M.D. Hematocrit Auto Volume Fraction (Bld) 34.8 % Low 37.9-49.2 [facility] Comment on above: Performed By: #### C BCDIF, SEDR, C-4, C-3, DNADS, MYPER, CH50, RITA, CCPAB, [id number], ANCA ####Unless otherwise noted, all testing performed by [place] [phone]: [id number] Director: Zechariah Mir M.D. Hemoglobin mass conc (Bld) 11.1 g/dL Low 12.9-16.9 [facility] Comment on above: Performed By: #### C BCDIF, SEDR, C-4, C-3, DNADS, MYPER, CH50, RITA, CCPAB, [id number], ANCA ####Unless otherwise noted, all testing performed by [address] [id number]: [id number] Director: Zechariah Mir M.D. Lymphocytes Auto #/vol (Bld) 1.8 K/mcL Invalid Interpretation Code 0.9 - 3.6 [facility] Lymphocytes/100 WBC Auto (Bld) 11.3 % Normal [facility] Comment on above: Performed By: #### C BCDIF, SEDR, C-4, C-3, DNADS, MYPER, CH50, RITA, CCPAB, [id number], ANCA ####Unless otherwise noted, all testing performed by [address] [id number]: [id number] Director: Zechariah Mir M.D. MCH Auto Entitic mass (RBC) 26.7 pg Low 27.7-34.6 [facility] Comment on above: Performed By: #### C BCDIF, SEDR, C-4, C-3, DNADS, MYPER, CH50, RITA, CCPAB, [id number], ANCA ####Unless otherwise noted, all testing performed by [address] [id number]: [id number] Director: Zechariah Mir M.D. MCHC Auto mass conc (RBC) 32.0 g/dL Low 32.9-35.5 [facility] Comment on above: Performed By: #### C BCDIF, SEDR, C-4, C-3, DNADS, MYPER, CH50, RITA, CCPAB, [id number], ANCA ####Unless otherwise noted, all testing performed by [address] [phone]: [id number] Director: Zechariah Mir M.D. MCV Auto Entitic volume (RBC) 83.4 fL Normal 82.8-99.3 [facility] Comment on above: Performed By: #### C BCDIF, SEDR, C-4, C-3, DNADS, MYPER, CH50, RITA, CCPAB, [id number], ANCA ####Unless otherwise noted, all testing performed by [address] [phone]: [id number] Director: Zechariah Mir M.D. Monocytes Auto #/vol (Bld) 0.8 K/mcL High 0.2 - 0.6 [facility] Monocytes/100 WBC Auto (Bld) 4.9 % Normal [facility] Comment on above: Performed By: #### C BCDIF, SEDR, C-4, C-3, DNADS, MYPER, CH50, RITA, CCPAB, [id number], ANCA ####Unless otherwise noted, all testing performed by [address] [phone]: [id number] Director: Zechariah Mir M.D. Neutrophils Auto #/vol (Bld) 12.9 K/mcL High 1.4 - 6.8 [facility] Platelet mean volume Auto Entitic volume (Bld) 7.7 fL Normal 6.6-10.8 [facility] Comment on above: Performed By: #### C BCDIF, SEDR, C-4, C-3, DNADS, MYPER, CH50, RITA, CCPAB, [id number], ANCA ####Unless otherwise noted, all testing performed by [address] [phone]: [id number] Director: Zechariah Mir M.D. Platelets Auto #/vol (Bld) 321 K/mcL Invalid Interpretation Code 139 - 354 [facility] RBC Auto #/vol (Bld) 4.17 M/mcL Invalid Interpretation Code 4.0 - 5.5 [facility] Segmented Neut 81.9 % Invalid Interpretation Code [facility] WBC Auto #/vol (Bld) 15.7 K/mcL High 3.6 - 10.4 [facility] CBC with Diffon 03-06-2018 Basophils Auto #/vol (Bld) 0.2 K/mcL Normal 0-0.2 [facility] Comment on above: Performed By: #### C BCDIF, SEDR, C-4, C-3, DNADS, MYPER, CH50, RITA, CCPAB, [id number], ANCA ####Unless otherwise noted, all testing performed by [address] [id number]: [id number] Director: Zechariah Mir M.D. Eosinophils Auto #/vol (Bld) 0.1 K/mcL Normal 0-0.5 [facility] Comment on above: Performed By: #### C BCDIF, SEDR, C-4, C-3, DNADS, MYPER, CH50, RITA, CCPAB, [id number], ANCA ####Unless otherwise noted, all testing performed by [address]CLIA: [id number] Director: Zechariah Mir M.D. Lymphocytes Auto #/vol (Bld) 1.8 K/mcL Normal 0.9-3.6 [facility] Comment on above: Performed By: #### C BCDIF, SEDR, C-4, C-3, DNADS, MYPER, CH50, RITA, CCPAB, [id number], ANCA ####Unless otherwise noted, all testing performed by [address]8509CLIA: [id number] Director: Zechariah Mir M.D. Monocytes Auto #/vol (Bld) 0.8 K/mcL High 0.2-0.6 [facility] Comment on above: Performed By: #### C BCDIF, SEDR, C-4, C-3, DNADS, MYPER, CH50, RITA, CCPAB, [id number], ANCA ####Unless otherwise noted, all testing performed by [place] [id number]: [id number] Director: Zechariah Mir M.D. Neutrophils Auto #/vol (Bld) 12.9 K/mcL High 1.4-6.8 [facility] Comment on above: Performed By: #### C BCDIF, SEDR, C-4, C-3, DNADS, MYPER, CH50, RITA, CCPAB, [id number], ANCA ####Unless otherwise noted, all testing performed by [address] [phone]: [id number] Director: Zechariah Mir M.D. Platelets Auto #/vol (Bld) 321 K/mcL Normal 139-354 [facility] Comment on above: Performed By: #### C BCDIF, SEDR, C-4, C-3, DNADS, MYPER, CH50, RITA, CCPAB, [id number], ANCA ####Unless otherwise noted, all testing performed by [address] [id number]: [id number] Director: Zechariah Mir M.D. RBC Auto #/vol (Bld) 4.17 M/mcL Normal 4.0-5.5 [facility] Comment on above: Performed By: #### C BCDIF, SEDR, C-4, C-3, DNADS, MYPER, CH50, RITA, CCPAB, [id number], ANCA ####Unless otherwise noted, all testing performed by [address] [phone]: [id number] Director: Zechariah Mir M.D. Segmented Neut % 81.9 % Normal [facility] Comment on above: Performed By: #### C BCDIF, SEDR, C-4, C-3, DNADS, MYPER, CH50, RITA, CCPAB, [id number], ANCA ####Unless otherwise noted, all testing performed by [address] [id number]: [id number] Director: Zehcariah Mir M.D. WBC Auto #/vol (Bld) 15.7 K/mcL High 3.6-10.4 [facility] Comment on above: Performed By: #### C BCDIF, SEDR, C-4, C-3, DNADS, MYPER, CH50, RITA, CCPAB, [id number], ANCA ####Unless otherwise noted, all testing performed by [address] [id number]: [id number] Director: Zechariah Mir M.D. CCP Antibodieson 03-06-2018 CCP Antibodies 20.1 Unit High 0.0-20.0 [facility] Comment on above: Result Comment: Refe rence Ranges:<20Units [id number] Weakly [id number] Moderative Positive>=60Units Strong PositiveTest Performed by [facility] [id number] [place] [address] Performed By: #### C BCDIF, SEDR, C-4, C-3, DNADS, MYPER, CH50, RITA, CCPAB, [id number], ANCA ####Unless otherwise noted, all testing performed by [address] [id number]: [id number] Director: Zechariah Mir M.D. CH50 (Complement Total)on CH50 (Complement Total) 55 U/mL Normal 30 - 75 [facility] Comment on above: Result Comment: Test Performed by:[address] [address] Performed By: #### C BCDIF, SEDR, C-4, C-3, DNADS, MYPER, CH50, RITA, CCPAB, [id number], ANCA ####Unless otherwise noted, all testing performed by [address] [id number]: [id number] Director: Zechariah Mir M.D. Cytoplasmic Neut Abs (ANCA)o n 03-06-2018 C-ANCA Negative Normal Negative [facility] Comment on above: Performed By: #### C BCDIF, SEDR, C-4, C-3, DNADS, MYPER, CH50, RITA, CCPAB, [id number], ANCA ####Unless otherwise noted, all testing performed by [address] [id number]: [id number] Director: Zechariah Mir M.D. P-ANCA Negative Normal Negative [facility] Comment on above: Result Comment: Nega tive for cANCA and pANCA patterns by immunofluorescence. ADDITIONAL INFORMATION This test was developed and its performance characteristicsdetermined by [facility] in a manner consistent with CLIArequirements. This test has not been cleared or approved bythe U.S. Food and Drug Administration.Test Performed by:[place] [address] Performed By: #### C BCDIF, SEDR, C-4, C-3, DNADS, MYPER, CH50, RITA, CCPAB, [id number], ANCA ####Unless otherwise noted, all testing performed by [address] [id number]: [id number] Director: Zechariah Mir M.D. DNA Double Stranded(dsDNA)Ab on 03-06-2018 DNA Double Stranded(dsDNA)Ab < 10 Normal <10 [facility] Comment on above: Result Comment: [place] [address] Performed By: #### C BCDIF, SEDR, C-4, C-3, DNADS, MYPER, CH50, RITA, CCPAB, [id number], ANCA ####Unless otherwise noted, all testing performed by [address] [id number]: [id number] Director: Zechariah Mir M.D. JONO Antibodieson 03-06-2018 JONO Antibodies 4 Units Normal 0-19 [facility] Comment on above: Result Comment: THE JONO Screen tests for SSA,SSB,SM,SM/MAGISTERIAL DISTRICT JUDGE,SCL-70, AND JO1.Reference Ranges:<20 Units = [id number] Units = Borderline>25 Units = [place] [address] Performed By: #### C BCDIF, SEDR, C-4, C-3, DNADS, MYPER, CH50, RITA, CCPAB, [id number], ANCA ####Unless otherwise noted, all testing performed by [address] [id number]: [id number] Director: Zechariah Mir M.D. Myeloperoxidase Antibodieson 03-06-2018 Myeloperoxidase Antibodies < 0.2 Normal <0.4 (Negative) [facility] Comment on above: Result Comment: Test Performed by:[place] [address] Performed By: #### C BCDIF, SEDR, C-4, C-3, DNADS, MYPER, CH50, RITA, CCPAB, [id number], ANCA ####Unless otherwise noted, all testing performed by [address] [id number]: [id number] Director: Zechariah Mir M.D. Proteinase 3 Abson 8 Proteinase 3 Abs < 0.2 Normal <0.4 (Negative) [facility] Comment on above: Result Comment: Test Performed by:[place] [address] Performed By: #### C BCDIF, SEDR, C-4, C-3, DNADS, MYPER, CH50, RITA, CCPAB, [id number], ANCA ####Unless otherwise noted, all testing performed by [address] [id number]: [id number] Director: Zechariah Mir M.D. Rheumatoid Factoron 03-06-20 18 Rheumatoid Factor Negative Normal Negative [facility] Comment on above: Performed By: #### C BCDIF, SEDR, C-4, C-3, DNADS, MYPER, CH50, RITA, CCPAB, [id number], ANCA ####Unless otherwise noted, all testing performed by [address] [id number]: [id number] Director: Zechariah Mir M.D. Sed Rateon 03-06-2018 Sed Rate 109 MM/hr. High 0-15 [facility] Comment on above: Performed By: #### C BCDIF, SEDR, C-4, C-3, DNADS, MYPER, CH50, RITA, CCPAB, [id number], ANCA ####Unless otherwise noted, all testing performed by [address] [id number]: [id number] Director: Zechariah Mir M.D. Sedimentation Rateon 018 Interpretation and review of laboratory results Abnormal Invalid Interpretation Code [facility] Sed Rate 109 MM/hr. High 0 - 15 [facility] IOL BIOMETRY W/ IOL CALC OU (BOTH EYES) [facility] Vital Signs Date Time Vital Sign Value Performing Clinician Facility 12-31-2023 10:21-0400 Body height 182.9 cm Gunner Baez MD Work Phone: [facility] 12-31-2023 10:21-0400 Body mass index (BMI) [Ratio] 31.84 kg/m2 Gunner Baez MD Work Phone: [facility] 12-31-2023 10:21-0400 Body weight 106.5 kg Gunner Baez MD Work Phone: [facility] 12-31-2023 10:21-0400 Diastolic blood pressure 80 mm[Hg] Gunner Baez MD Work Phone: [facility] 12-31-2023 10:21-0400 Heart rate 88 /min Gunner Baez MD Work Phone: [facility] 12-31-2023 10:21-0400 Systolic blood pressure 138 mm[Hg] Gunner Baez MD Work Phone: [facility] 10-23-2023 11:18-0400 Body height 182.88 cm [facility] 10-23-2023 11:18-0400 Body mass index (BMI) [Ratio] 31.1 kg/m2 [facility] 10-23-2023 11:18-0400 Body weight 104.04 kg [facility] 10-23-2023 11:18-0400 Diastolic blood pressure 85 mm[Hg] [facility] 10-23-2023 11:18-0400 Heart rate 80 /min [facility] 10-23-2023 11:18-0400 Respiratory rate 12 /min [facility] 10-23-2023 11:18-0400 Systolic blood pressure 140 mm[Hg] [facility] 10-19-2023 12:06-0400 Hourly Rounding Mbanefo OJUKWU [facility] 10-19-2023 12:06-0400 Promise to Return Mbanefo OJUKWU [facility] 10-19-2023 11:34-0400 Hourly Rounding Mbanefo OJUKWU [facility] 10-19-2023 11:34-0400 Promise to Return Mbanefo OJUKWU [facility] 10-19-2023 10:34-0400 Hourly Rounding Mbanefo OJUKWU [facility] 10-19-2023 10:34-0400 Promise to Return Mbanefo OJUKWU [facility] 10-19-2023 10:07-0400 Heart rate 72 /min Mbanefo OJUKWU [facility] 10-19-2023 10:07-0400 SaO2% (BldA) [Mass fraction] 99 % Mbanefo OJUKWU [facility] 10-19-2023 10:07-0400 Diastolic blood pressure 72 mm[Hg] Mbanefo OJUKWU [facility] 10-19-2023 10:07-0400 Mean blood pressure 85 mm[Hg] Mbanefo OJUKWU [facility] 10-19-2023 10:07-0400 Systolic blood pressure 110 mm[Hg] Mbanefo OJUKWU [facility] 10-19-2023 10:07-0400 Body temperature 97.7 [degF] Mbanefo OJUKWU [facility] 10-19-2023 07:35-0400 Heart rate 70 /min Mbanefo OJUKWU [facility] 10-19-2023 07:35-0400 SaO2% (BldA) [Mass fraction] 98 % Mbanefo OJUKWU [facility] 10-19-2023 07:34-0400 Diastolic blood pressure 74 mm[Hg] Mbanefo OJUKWU [facility] 10-19-2023 07:34-0400 Mean blood pressure 86 mm[Hg] Mbanefo OJUKWU [facility] 10-19-2023 07:34-0400 Systolic blood pressure 112 mm[Hg] Mbanefo OJUKWU [facility] 10-19-2023 07:34-0400 Body temperature 97.7 [degF] Mbanefo OJUKWU [facility] 10-19-2023 04:22-0400 Heart rate 67 /min Mbanefo OJUKWU [facility] 10-19-2023 04:22-0400 SaO2% (BldA) [Mass fraction] 97 % Mbanefo OJUKWU [facility] 10-19-2023 04:22-0400 Respiratory rate 16 /min Mbanefo OJUKWU [facility] 10-19-2023 04:20-0400 Blood Pressure Location Mbanefo OJUKWU [facility] 10-19-2023 04:20-0400 BP/Pulse Patient Position Mbanefo OJUKWU [facility] 10-19-2023 04:20-0400 Diastolic blood pressure 81 mm[Hg] Mbanefo OJUKWU [facility] 10-19-2023 04:20-0400 Mean blood pressure 93 mm[Hg] Mbanefo OJUKWU [facility] 10-19-2023 04:20-0400 Systolic blood pressure 118 mm[Hg] Mbanefo OJUKWU [facility] 10-18-2023 23:49-0400 Respiratory rate 18 /min Mbanefo OJUKWU [facility] 10-18-2023 23:49-0400 Blood Pressure Location Mbanefo OJUKWU [facility] 10-18-2023 23:49-0400 BP/Pulse Patient Position Mbanefo OJUKWU [facility] 10-18-2023 23:00-0400 Body temperature 97.34 [degF] Mbanefo OJUKWU [facility] 10-18-2023 21:54-0400 Heart rate 73 /min Mbanefo OJUKWU [facility] 10-18-2023 19:28-0400 Body temperature 97.52 [degF] Mbanefo OJUKWU [facility] 10-18-2023 15:00-0400 Mean blood pressure 89 mm[Hg] Mbanefo OJUKWU [facility] 10-18-2023 09:23-0400 Heart rate 95 /min Mbanefo OJUKWU [facility] 10-18-2023 09:00-0400 Respiratory rate 15 /min Mbanefo OJUKWU [facility] 10-18-2023 08:15-0400 Mean blood pressure 111 mm[Hg] Mbanefo OJUKWU [facility] 10-18-2023 08:15-0400 Respiratory rate 18 /min Mbanefo OJUKWU [facility] 10-18-2023 07:10-0400 Mean blood pressure 121 mm[Hg] Mbanefo OJUKWU [facility] 10-18-2023 07:10-0400 Respiratory rate 18 /min Mbanefo OJUKWU [facility] 10-18-2023 06:28-0400 Body temperature 96.62 [degF] Mbanefo OJUKWU [facility] 10-18-2023 06:28-0400 Heart rate 90 /min Mbanefo OJUKWU [facility] 10-18-2023 06:28-0400 Respiratory rate 16 /min Mbanefo OJUKWU [facility] 10-05-2023 09:55-0400 Body temperature 97.7 [degF] [facility] 10-05-2023 09:55-0400 Diastolic blood pressure 109 mm[Hg] [facility] 10-05-2023 09:55-0400 Heart rate 95 /min [facility] 10-05-2023 09:55-0400 Respiratory rate 18 /min [facility] 10-05-2023 09:55-0400 SaO2% (BldA) [Mass fraction] 98 % [facility] 10-05-2023 09:55-0400 Systolic blood pressure 170 mm[Hg] [facility] 09-26-2023 18:06-0500 Diastolic blood pressure 106 mm[Hg] Shaneka Destiny PA-C Work Phone: [facility] 09-26-2023 18:06-0500 Systolic blood pressure 165 mm[Hg] Shaneka Destiny PA-C Work Phone: [facility] 09-26-2023 18:05-0500 Body temperature 97.81 [degF] Shaneka Destiny PA-C Work Phone: [facility] 09-26-2023 18:05-0500 Body weight 108.41 kg Shaneka Destiny PA-C Work Phone: [facility] 09-26-2023 18:05-0500 Heart rate 107 /min Shaneka Destiny PA-C Work Phone: [facility] 09-26-2023 18:05-0500 Respiratory rate 20 /min Shaneka Destiny PA-C Work Phone: [facility] 09-26-2023 18:05-0500 SaO2% (BldA) [Mass fraction] 97 % Shaneka Destiny PA-C Work Phone: [facility] 09-10-2023 16:00-0500 Hourly Rounding Ronobir ANGELES [facility] 09-10-2023 16:00-0500 Promise to Return Ronobir ANGELES [facility] 09-10-2023 15:45-0500 Respiratory rate 20 /min Ronobir ANGELES [facility] 09-10-2023 15:32-0500 Heart rate 64 /min Ronobir ANGELES [facility] 09-10-2023 15:32-0500 Respiratory rate 20 /min Ronobir ANGELES [facility] 09-10-2023 15:32-0500 SaO2% (BldA) [Mass fraction] 95 % Ronobir ANGELES [facility] 09-10-2023 15:00-0500 Hourly Rounding Ronobir ANGELES [facility] 09-10-2023 15:00-0500 Promise to Return Ronobir ANGELES [facility] 09-10-2023 14:00-0500 Body temperature 97.52 [degF] Ronobir ANGELES [facility] 09-10-2023 14:00-0500 Diastolic blood pressure 72 mm[Hg] Ronobir ANGELES [facility] 09-10-2023 14:00-0500 Hourly Rounding Ronobir ANGELES [facility] 09-10-2023 14:00-0500 Mean blood pressure 86 mm[Hg] Ronobir ANGELES [facility] 09-10-2023 14:00-0500 Promise to Return Ronobir ANGELES [facility] 09-10-2023 14:00-0500 Respiratory rate 17 /min Ronobir ANGELES [facility] 09-10-2023 14:00-0500 Systolic blood pressure 113 mm[Hg] Ronobir ANGELES [facility] 09-10-2023 12:00-0500 Body temperature 98.06 [degF] Ronobir ANGELES [facility] 09-10-2023 12:00-0500 Heart rate 61 /min Ronobir ANGELES [facility] 09-10-2023 12:00-0500 Mean blood pressure 96 mm[Hg] Ronobir ANGELES [facility] 09-10-2023 12:00-0500 SaO2% (BldA) [Mass fraction] 97 % Ronobir ANGELES [facility] 09-10-2023 12:00-0500 Systolic blood pressure 127 mm[Hg] Ronobir ANGELES [facility] 09-10-2023 11:14-0500 Body temperature 97.7 [degF] Ronobir ANGELES [facility] 09-10-2023 11:14-0500 Diastolic blood pressure 81 mm[Hg] Ronobir ANGELES [facility] 09-10-2023 11:14-0500 Mean blood pressure 97 mm[Hg] Ronobir ANGELES [facility] 09-10-2023 11:14-0500 Systolic blood pressure 129 mm[Hg] Ronobir ANGELES [facility] 09-10-2023 07:17-0500 Mean blood pressure 90 mm[Hg] Ronobir ANGELES [facility] 09-10-2023 04:10-0500 Blood Pressure Location Ronobir ANGELES [facility] 09-10-2023 04:10-0500 Mean blood pressure 87 mm[Hg] Ronobir ANGELES [facility] 09-09-2023 19:50-0500 Mean blood pressure 90 mm[Hg] Ronobir ANGELES [facility] 09-09-2023 03:31-0500 Heart rate 75 /min Ronobir ANEGLES [facility] 09-09-2023 00:46-0500 Heart rate 84 /min Ronobir ANGELES [facility] 09-09-2023 00:44-0500 Heart rate 83 /min Ronobir ANGELES [facility] 09-08-2023 22:30-0500 Respiratory rate 4 /min Ronobir ANGELES [facility] 09-08-2023 21:30-0500 Respiratory rate 11 /min Ronobir ANGELES [facility] 09-08-2023 21:00-0500 Respiratory rate 12 /min Ronobir ANGELES [facility] 09-03-2023 13:08-0500 Body height 182.9 cm Cole Banjac [employer] MACHINE OPERATOR Work Phone: [facility] 09-03-2023 13:08-0500 Body weight 113.9 kg Cole Banjac [employer].BEAN PICKER MACHINE OPERATOR Work Phone: [facility] 09-03-2023 13:08-0500 Diastolic blood pressure 87 mm[Hg] Cole Banjac [employer].BEAN PICKER MACHINE OPERATOR Work Phone: [facility] 09-03-2023 13:08-0500 Heart rate 84 /min Cole Banjac [employer].BEAN PICKER MACHINE OPERATOR Work Phone: [facility] 09-03-2023 13:08-0500 SaO2% (BldA) [Mass fraction] 95 % Cole Banjac [employer].BEAN PICKER MACHINE OPERATOR Work Phone: [facility] 09-03-2023 13:08-0500 Systolic blood pressure 136 mm[Hg] Cole Banjac [employer].BEAN PICKER MACHINE OPERATOR Work Phone: [facility] 08-31-2023 10:06-0500 Body height 182.9 cm Gunner Baez MD Work Phone: [facility] 08-31-2023 10:06-0500 Body mass index (BMI) [Ratio] 34.72 kg/m2 Gunner Baez MD Work Phone: [facility] 08-31-2023 10:06-0500 Body weight 116.12 kg Gunner Baez MD Work Phone: [facility] 08-31-2023 10:06-0500 Diastolic blood pressure 80 mm[Hg] Gunner Baez MD Work Phone: [facility] 08-31-2023 10:06-0500 Heart rate 94 /min Gunner Baez MD Work Phone: [facility] 08-31-2023 10:06-0500 Systolic blood pressure 136 mm[Hg] Gunner Baez MD Work Phone: [facility] 08-27-2023 09:17-0500 Body height 180.3 cm Chon Covingtonce DPM FACFAS Work Phone: [facility] 08-27-2023 09:17-0500 Body mass index (BMI) [Ratio] 39.75 kg/m2 Chon Dolce DPM FACFAS Work Phone: [facility] 08-27-2023 09:17-0500 Body weight 129.28 kg Chon Dolce DPM FACFAS Work Phone: [facility] 08-27-2023 09:17-0500 Diastolic blood pressure 75 mm[Hg] Chon Dolce DPM FACFAS Work Phone: [facility] 08-27-2023 09:17-0500 Heart rate 77 /min Chon Covingtonce DPM FACFAS Work Phone: [facility] 08-27-2023 09:17-0500 Systolic blood pressure 127 mm[Hg] Chon Dolce DPM FACFAS Work Phone: [facility] 08-13-2023 10:30-0500 Body height 182.88 cm Ricarda Ball Other [facility] 08-13-2023 10:30-0500 Body mass index (BMI) [Ratio] 32.76 kg/m2 Ricarda Ball Other [facility] [employer] Other 08-13-2023 10:30-0500 Body weight 109.59 kg Ricarda Ball Other [facility] [employer] Other 08-13-2023 10:30-0500 Body weight 109.58 kg [facility] 08-13-2023 10:30-0500 Diastolic blood pressure 77 mm[Hg] Ricarda Ball Other [facility] 08-13-2023 10:30-0500 Respiratory rate 12 /min Ricarda Ball Other [facility] [employer] Other 08-13-2023 10:30-0500 Systolic blood pressure 117 mm[Hg] Ricarda Ball Other [facility] 08-02-2023 09:30-0500 Body height 182.88 cm Ricarda Ball Other [facility] 08-02-2023 09:30-0500 Body mass index (BMI) [Ratio] 34.07 kg/m2 Ricarda Ball Other [facility] [employer] Other 08-02-2023 09:30-0500 Body weight 113.94 kg Ricarda Ball Other [facility] 08-02-2023 09:30-0500 Diastolic blood pressure 90 mm[Hg] Ricarda Ball Other [facility] 08-02-2023 09:30-0500 Respiratory rate 12 /min Ricarda Ball Other [facility] [employer] Other 08-02-2023 09:30-0500 Systolic blood pressure 131 mm[Hg] Ricarda Ball Other [facility] 05-07-2023 08:45-0400 Body height 182.88 cm Ricarda Ball Other [email or web address] Other 05-07-2023 08:45-0400 Body mass index (BMI) [Ratio] 33.58 kg/m2 Ricarda Ball Other [email or web address] Other 05-07-2023 08:45-0400 Body weight 112.31 kg Ricarda Ball Other [email or web address] Other 05-07-2023 08:45-0400 Diastolic blood pressure 89 mm[Hg] Ricarda Ball Other [email or web address] Other 05-07-2023 08:45-0400 Respiratory rate 12 /min Ricarda Ball Other [email or web address] Other 05-07-2023 08:45-0400 SaO2% (BldA) [Mass fraction] 96 % Ricarda Ball Other [email or web address] Other 05-07-2023 08:45-0400 Systolic blood pressure 141 mm[Hg] Ricarda Ball Other [email or web address] Other 04-21-2023 00:00-0400 Body temperature 97.16 [degF] Jose Iqbal [facility] 04-21-2023 00:00-0400 Diastolic blood pressure 103 mm[Hg] Jose Rasheed [facility] 04-21-2023 00:00-0400 Heart rate 90 /min Jose Rasheed [facility] 04-21-2023 00:00-0400 Mean blood pressure 127 mm[Hg] Jose Rasheed [facility] 04-21-2023 00:00-0400 Respiratory rate 18 /min Jose Rasheed [facility] 04-21-2023 00:00-0400 SaO2% (BldA) [Mass fraction] 93 % Jose Rasheed [facility] 04-21-2023 00:00-0400 Systolic blood pressure 175 mm[Hg] Jose Iqbal [facility] 04-20-2023 23:00-0400 Body temperature 96.98 [degF] Jose Rasheed [facility] 04-20-2023 23:00-0400 Diastolic blood pressure 109 mm[Hg] Jose Rasheed [facility] 04-20-2023 23:00-0400 Heart rate 87 /min Jose Rasheed [facility] 04-20-2023 23:00-0400 Systolic blood pressure 163 mm[Hg] Jose Rasheed [facility] 04-20-2023 22:52-0400 Heart rate 89 /min Jose Iqbal [facility] 04-20-2023 22:52-0400 Respiratory rate 16 /min Jose Rasheed [facility] 04-20-2023 22:52-0400 SaO2% (BldA) [Mass fraction] 100 % Jose Rasheed [facility] 04-20-2023 22:44-0400 Respiratory rate 16 /min Jose Rasheed [facility] 04-20-2023 22:07-0400 Respiratory rate 16 /min Jose Rasheed [facility] 04-20-2023 22:00-0400 Diastolic blood pressure 107 mm[Hg] Jose Rasheed [facility] 04-20-2023 22:00-0400 Mean blood pressure 125 mm[Hg] Jose Rasheed [facility] 04-20-2023 22:00-0400 Systolic blood pressure 160 mm[Hg] Jose Iqbal [facility] 04-20-2023 21:06-0400 Heart rate 101 /min Jose Iqbal [facility] 04-10-2023 13:09-0400 Diastolic blood pressure 94 mm[Hg] Peyton Arellano MD Work Phone: [facility] 04-10-2023 13:09-0400 Heart rate 83 /min Peyton Arellano MD Work Phone: [facility] 04-10-2023 13:09-0400 Systolic blood pressure 144 mm[Hg] Peyton Arellano MD Work Phone: [facility] 04-10-2023 13:07-0400 Body weight 108.09 kg Peyton Arellano MD Work Phone: [facility] 02-26-2023 15:00-0400 Body height 182.88 cm Ricarda Ball Other [employer] [facility] [employer] Other 02-26-2023 15:00-0400 Body mass index (BMI) [Ratio] 31.62 kg/m2 Ricarda Ball Other [employer] Other 02-26-2023 15:00-0400 Body weight 105.78 kg Ricarda Ball Other [employer] Other 02-26-2023 15:00-0400 Diastolic blood pressure 80 mm[Hg] Ricarda Ball Other [employer] Other 02-26-2023 15:00-0400 Respiratory rate 12 /min Ricarda Ball Other [employer] Other 02-26-2023 15:00-0400 Systolic blood pressure 130 mm[Hg] Ricarda Ball Other [facility] [employer] Other 11-20-2022 10:16-0400 Body height 182.88 cm Ricarda E Ball Work Phone: [facility] [employer] DO Work Phone: 11-20-2022 10:16-0400 Body mass index (BMI) [Ratio] 32.55 kg/m2 Ricarda E Ball Work Phone: [facility] [employer] [address] DO Work Phone: 11-20-2022 10:16-0400 Body surface area Derived from formula 2.3 m2 Ricarda E Ball Work Phone: [facility] [employer] 600 DO Work Phone: 11-20-2022 10:16-0400 Body weight 108.86 kg Ricarda E Ball Work Phone: [facility] [employer] [address] DO Work Phone: 11-20-2022 10:16-0400 Diastolic blood pressure 70 mm[Hg] Ricarda E Ball Work Phone: [facility] [employer] [address] DO Work Phone: 11-20-2022 10:16-0400 Heart rate 80 /min Ricarda E Ball Work Phone: [facility] [employer] [address] DO Work Phone: 11-20-2022 10:16-0400 Systolic blood pressure 118 mm[Hg] Ricarda E Ball Work Phone: [facility] [employer] [address] DO Work Phone: 10-16-2022 14:11-0400 Body height 182.88 cm Ricarda E Ball Work Phone: SS[facility]Kxxmzgi-Gtlbu [place] Work Phone: 10-16-2022 14:11-0400 Body mass index (BMI) [Ratio] 32.01 kg/m2 Ricarda E Ball Work Phone: [facility] [place] Work Phone: 10-16-2022 14:11-0400 Body surface area Derived from formula 2.29 m2 Ricarda Meyers Ball Work Phone: OF-Jnzofnw-Kddyh [place] Work Phone: 10-16-2022 14:11-0400 Body weight 107.05 kg Ricarda Meyers Ball Work Phone: AP-Qyimhvb-Mxkip [place] Work Phone: 10-16-2022 14:11-0400 Diastolic blood pressure 83 mm[Hg] Ricarda Meyers Ball Work Phone: PF-Rchsdhm-Ajfoi [place] Work Phone: 10-16-2022 14:11-0400 Heart rate 79 /min Ricarda Meyers Ball Work Phone: SZ-Oqareia-Atobc [place] Work Phone: 10-16-2022 14:11-0400 Respiratory rate 16 /min Ricarda Meyers Ball Work Phone: MR-Qjifecs-Aakrs [place] Work Phone: 10-16-2022 14:11-0400 Systolic blood pressure 136 mm[Hg] Ricarda Meyers Ball Work Phone: WI-Haqeexk-Amady [place] Work Phone: 09-26-2022 12:57-0500 Body height 182.88 cm Ricarda Meyers Ball Work Phone: PU-Gpthjfs-Ngffe [place] Work Phone: 09-26-2022 12:57-0500 Body mass index (BMI) [Ratio] 31.75 kg/m2 Ricarda Meyers Ball Work Phone: OG-Nebykqp-Bcmhh [place] Work Phone: 09-26-2022 12:57-0500 Body surface area Derived from formula 2.28 m2 Ricarda Meyers Ball Work Phone: FM-Lwpjrxt-Utmyt [place] Work Phone: 09-26-2022 12:57-0500 Body temperature 97.4 [degF] Ricarda E Ball Work Phone: GA-Gsbqwgq-Dhsmn [place] Work Phone: 09-26-2022 12:57-0500 Body weight 106.2 kg Ricarda E Ball Work Phone: QH-Sfzlpqu-Jxyzf [place] Work Phone: 09-13-2022 11:30-0500 Body height 182.88 cm Ricarda Ball Other [employer] Other 09-13-2022 11:30-0500 Body mass index (BMI) [Ratio] 31.73 kg/m2 Ricarda Ball Other [employer] Other 09-13-2022 11:30-0500 Body weight 106.14 kg Ricarda Ball Other [employer] Other 09-13-2022 11:30-0500 Diastolic blood pressure 70 mm[Hg] Ricarda Ball Other [employer] Other 09-13-2022 11:30-0500 Respiratory rate 12 /min Ricarda Ball Other [employer] Other 09-13-2022 11:30-0500 Systolic blood pressure 122 mm[Hg] Ricarda Ball Other [employer] Other 07-27-2022 10:00-0500 Body height 182.88 cm Ramona Petty Other [employer] Other 07-27-2022 10:00-0500 Body mass index (BMI) [Ratio] 27.8 kg/m2 Ramona Petty Other [employer] Other 07-27-2022 10:00-0500 Body temperature 97.8 [degF] Ramona David Other [employer] Other 07-27-2022 10:00-0500 Body weight 92.99 kg Ramona Petty Other [employer] Other 07-27-2022 10:00-0500 Diastolic blood pressure 78 mm[Hg] Ramona Petty Other [employer] Other 07-27-2022 10:00-0500 SaO2% (BldA) [Mass fraction] 98 % Ramona David Other [employer] Other 07-27-2022 10:00-0500 Systolic blood pressure 118 mm[Hg] Ramona Petty Other [employer] Other 06-29-2022 09:30-0500 Body height 182.88 cm Fifi Pitts Other [employer] Other 06-29-2022 09:30-0500 Body mass index (BMI) [Ratio] 27.8 kg/m2 Fifi Pitts Other [employer] Other 06-29-2022 09:30-0500 Body temperature 96.8 [degF] Fifi Pitts Other [employer] Other 06-29-2022 09:30-0500 Body weight 92.99 kg Fifi Pitts Other [employer] Other 06-29-2022 09:30-0500 Diastolic blood pressure 72 mm[Hg] Fifi Pitts Other [employer] Other 06-29-2022 09:30-0500 SaO2% (BldA) [Mass fraction] 97 % Fifi Pitts Other [employer] Other 06-29-2022 09:30-0500 Systolic blood pressure 118 mm[Hg] Fifi Pitts Other [employer] Other 06-08-2022 09:35-0500 Body height 182.88 cm Ricarda E Ball Work Phone: [employer] 600 DO Work Phone: 06-08-2022 09:35-0500 Body mass index (BMI) [Ratio] 28.21 kg/m2 Ricarda E Ball Work Phone: [employer] DO Work Phone: 06-08-2022 09:35-0500 Body surface area Derived from formula 2.17 m2 Ricarda E Ball Work Phone: [employer] DO Work Phone: 06-08-2022 09:35-0500 Body weight 94.35 kg Ricarda E Ball Work Phone: [employer] DO Work Phone: 06-08-2022 09:35-0500 Diastolic blood pressure 70 mm[Hg] Ricarda E Ball Work Phone: [employer] DO Work Phone: 06-08-2022 09:35-0500 Heart rate 80 /min Ricarda E Ball Work Phone: [employer] DO Work Phone: 06-08-2022 09:35-0500 Systolic blood pressure 110 mm[Hg] Ricarda E Ball Work Phone: [facility] 600 DO Work Phone: 05-22-2022 18:09-0400 Diastolic blood pressure 76 mm[Hg] Jose Rasheed [facility] 05-22-2022 18:09-0400 Heart rate 75 /min Jose Rasheed [facility] 05-22-2022 18:09-0400 Hourly Rounding Jose Rasheed [facility] 05-22-2022 18:09-0400 Mean blood pressure 95 mm[Hg] Jose Rasheed [facility] 05-22-2022 18:09-0400 Respiratory rate 18 /min Jose Rasheed [facility] 05-22-2022 18:09-0400 SaO2% (BldA) [Mass fraction] 100 % Jose Rasheed [facility] 05-22-2022 18:09-0400 Systolic blood pressure 134 mm[Hg] Jose Rasheed [facility] 05-22-2022 16:35-0400 Diastolic blood pressure 78 mm[Hg] Jose Rasheed [facility] 05-22-2022 16:35-0400 Heart rate 76 /min Jose Rasheed [facility] 05-22-2022 16:35-0400 Mean blood pressure 99 mm[Hg] Jose Rasheed [facility] 05-22-2022 16:35-0400 Respiratory rate 19 /min Jose Rasheed [facility] 05-22-2022 16:35-0400 SaO2% (BldA) [Mass fraction] 100 % Jose Rashede [facility] 05-22-2022 16:35-0400 Systolic blood pressure 140 mm[Hg] Jose Rasheed [facility] 05-22-2022 15:00-0400 Heart rate 74 /min Jose Rasheed [facility] 05-22-2022 14:30-0400 Diastolic blood pressure 78 mm[Hg] Jose Rasheed [facility] 05-22-2022 14:30-0400 Systolic blood pressure 133 mm[Hg] Jose Rasheed [facility] 05-22-2022 14:18-0400 Hourly Rounding Jose Rasheed [facility] 05-22-2022 13:32-0400 Mean blood pressure 87 mm[Hg] Jose Rasheed [facility] 05-22-2022 13:12-0400 Hourly Rounding Jose Rasheed [facility] 05-22-2022 13:12-0400 Promise to Return Jose Rasheed [facility] 05-22-2022 11:00-0400 Respiratory rate 16 /min Jose Rasheed [facility] 05-22-2022 10:23-0400 Body temperature 97.88 [degF] Jose Rasheed [facility] 05-22-2022 10:23-0400 Respiratory rate 18 /min Jose Rasheed [facility] 05-10-2022 11:30-0400 Body height 182.88 cm Ramona Petty Other [employer] Other 05-10-2022 11:30-0400 Body mass index (BMI) [Ratio] 32.55 kg/m2 Ramona Petty Other [employer] Other 05-10-2022 11:30-0400 Body temperature 98 [degF] Ramona David Other [employer] Other 05-10-2022 11:30-0400 Body weight 108.86 kg Ramona David Other [employer] Other 05-10-2022 11:30-0400 Diastolic blood pressure 6 mm[Hg] Ramona Petty Other [employer] Other 05-10-2022 11:30-0400 SaO2% (BldA) [Mass fraction] 94 % Ramona Petty Other [employer] Other 05-10-2022 11:30-0400 Systolic blood pressure 102 mm[Hg] Ramona Petty Other [employer] Other 04-28-2022 12:00-0400 Diastolic blood pressure 99 mm[Hg] Et3 [facility] [employer] 04-28-2022 12:00-0400 Heart rate 90 /min Et3 [facility] [employer] 04-28-2022 12:00-0400 Respiratory rate 16 /min Et3 [facility] [employer] 04-28-2022 12:00-0400 SaO2% (BldA) [Mass fraction] 100 % Et3 [facility] [employer] 04-28-2022 12:00-0400 Systolic blood pressure 159 mm[Hg] Et3 [facility] [employer] 03-09-2022 12:15-0400 Body height 182.88 cm Fifi Pitts Other [employer] Other 03-09-2022 12:15-0400 Body mass index (BMI) [Ratio] 36.61 kg/m2 Fifi Pitts Other [employer] Other 03-09-2022 12:15-0400 Body temperature 96.3 [degF] Fifi Pitts Other [employer] Other 03-09-2022 12:15-0400 Body weight 122.47 kg Fifi Pitts Other [employer] Other 03-09-2022 12:15-0400 Diastolic blood pressure 70 mm[Hg] Fifi Pitts Other [employer] Other 03-09-2022 12:15-0400 SaO2% (BldA) [Mass fraction] 98 % Fifi Pitts Other [employer] Other 03-09-2022 12:15-0400 Systolic blood pressure 120 mm[Hg] Fifi Pitts Other [employer] Other 03-06-2022 15:20-0400 Body height 182.88 cm Tristan Bmial Other [employer] Other 03-06-2022 15:20-0400 Body mass index (BMI) [Ratio] 36.67 kg/m2 Tristan Bimal Other [employer] Other 03-06-2022 15:20-0400 Body temperature 96.7 [degF] Tristan Bimal Other [employer] Other 03-06-2022 15:20-0400 Body weight 122.65 kg Tristan Bimal Other [employer] Other 03-06-2022 15:20-0400 Diastolic blood pressure 89 mm[Hg] Tristan Bimal Other [employer] Other 03-06-2022 15:20-0400 Respiratory rate 20 /min Tristan Bimal Other [employer] Other 03-06-2022 15:20-0400 SaO2% (BldA) [Mass fraction] 99 % Tristan Bimal Other [employer] Other 03-06-2022 15:20-0400 Systolic blood pressure 144 mm[Hg] Tristan Bimal Other [employer] Other 02-08-2022 22:21-0400 Body height 182.88 cm DO Ircarda Ball Work Phone: [facility] 02-08-2022 22:21-0400 Body temperature 98.2 [degF] DO Ricarda Ball Work Phone: [facility] 02-08-2022 22:21-0400 Body weight 118.6 kg DO Ricarda Ball Work Phone: [facility] 02-08-2022 22:21-0400 Diastolic blood pressure 86 mm[Hg] DO Ricarda Ball Work Phone: [facility] 02-08-2022 22:21-0400 Heart rate 105 /min DO Ricarda Ball Work Phone: [facility] 02-08-2022 22:21-0400 Respiratory rate 18 /min DO Ricarda Ball Work Phone: [facility] 02-08-2022 22:21-0400 SaO2% (BldA) [Mass fraction] 96 % DO Ricarda Ball Work Phone: [facility] 02-08-2022 22:21-0400 Systolic blood pressure 159 mm[Hg] DO Ricarda Ball Work Phone: [facility] 02-02-2022 11:00-0400 Body height 182.88 cm Ramona Petty Other [employer] Other 02-02-2022 11:00-0400 Body mass index (BMI) [Ratio] 34.44 kg/m2 Ramona Monrealnolberto Other [employer] Other 02-02-2022 11:00-0400 Body temperature 97.3 [degF] Ramona Monrealnolberto Other [employer] Other 02-02-2022 11:00-0400 Body weight 115.21 kg Ramona Monrealnolberto Other [employer] Other 02-02-2022 11:00-0400 Diastolic blood pressure 80 mm[Hg] Ramona Monrealnolberto Other [employer] Other 02-02-2022 11:00-0400 SaO2% (BldA) [Mass fraction] 98 % Ramona Monrealnolberto Other [employer] Other 02-02-2022 11:00-0400 Systolic blood pressure 142 mm[Hg] Ramona Monrealnloberto Other [employer] Other 01-18-2022 14:15-0400 Diastolic blood pressure 89 mm[Hg] DO Ricarda Ball Work Phone: [facility] 01-18-2022 14:15-0400 Heart rate 75 /min DO Ricarda Ball Work Phone: [facility] 01-18-2022 14:15-0400 Respiratory rate 18 /min DO Ricarda Ball Work Phone: [facility] 01-18-2022 14:15-0400 SaO2% (BldA) [Mass fraction] 100 % DO Ricarda Ball Work Phone: [facility] 01-18-2022 14:15-0400 Systolic blood pressure 157 mm[Hg] DO Ricarda Ball Work Phone: [facility] 01-18-2022 11:24-0400 Body height 182.88 cm DO Ricarda Ball Work Phone: [facility] 01-18-2022 11:24-0400 Body mass index (BMI) [Ratio] 34.4 kg/m2 DO Ricarda Ball Work Phone: [facility] 01-18-2022 11:24-0400 Body weight 115 kg DO Ricarda Ball Work Phone: [facility] 01-18-2022 11:04-0400 Body temperature 98.2 [degF] DO Ricarda Ball Work Phone: [facility] 01-16-2022 16:15-0400 Diastolic blood pressure 82 mm[Hg] DO Ricarda Ball Work Phone: [facility] 01-16-2022 16:15-0400 Heart rate 64 /min DO Ricarda Ball Work Phone: [facility] 01-16-2022 16:15-0400 Respiratory rate 16 /min DO Ricarda Ball Work Phone: [facility] 01-16-2022 16:15-0400 SaO2% (BldA) [Mass fraction] 98 % DO Ricarda Ball Work Phone: [facility] 01-16-2022 16:15-0400 Systolic blood pressure 119 mm[Hg] DO Ricarda Ball Work Phone: [facility] 01-16-2022 15:01-0400 Body temperature 97.9 [degF] DO Ricarda Ball Work Phone: [facility] 01-16-2022 15:01-0400 Inhaled oxygen flow rate 8 L/min DO Ricarda Ball Work Phone: [facility] 01-16-2022 12:50-0400 Body height 182.88 cm DO Ricarda Ball Work Phone: [facility] 01-16-2022 12:50-0400 Body mass index (BMI) [Ratio] 34.5 kg/m2 DO Ricarda Ball Work Phone: [facility] 01-16-2022 12:50-0400 Body weight 115.66 kg DO Ricarda Ball Work Phone: [facility] 01-09-2022 06:11-0400 Body height 182.88 cm DO Ricarda Ball Work Phone: [facility] 01-09-2022 06:11-0400 Body mass index (BMI) [Ratio] 34.2 kg/m2 DO Ricarda Ball Work Phone: [facility] 01-09-2022 06:11-0400 Body temperature 97.5 [degF] DO Ricarda Ball Work Phone: [facility] 01-09-2022 06:11-0400 Body weight 114.3 kg DO Ricarda Ball Work Phone: [facility] 01-09-2022 06:11-0400 Diastolic blood pressure 88 mm[Hg] DO Ricarda Ball Work Phone: [facility] 01-09-2022 06:11-0400 Heart rate 83 /min DO Ricarda Ball Work Phone: [facility] 01-09-2022 06:11-0400 Respiratory rate 16 /min DO Ricarda Ball Work Phone: [facility] 01-09-2022 06:11-0400 SaO2% (BldA) [Mass fraction] 99 % DO Ricarda Ball Work Phone: [facility] 01-09-2022 06:11-0400 Systolic blood pressure 140 mm[Hg] DO Ricarda Ball Work Phone: [facility] 01-05-2022 11:20-0400 Body height 182.88 cm Tristan Wallis Other [employer] Other 01-05-2022 11:20-0400 Body mass index (BMI) [Ratio] 34.44 kg/m2 Tristan Bimal Other [employer] Other 01-05-2022 11:20-0400 Body temperature 96.7 [degF] Tristan Bimal Other [employer] Other 01-05-2022 11:20-0400 Body weight 115.21 kg Tristan Bimal Other [employer] Other 01-05-2022 11:20-0400 Diastolic blood pressure 82 mm[Hg] Tristan Bimal Other [employer] Other 01-05-2022 11:20-0400 Respiratory rate 20 /min Tristan Bimal Other [employer] Other 01-05-2022 11:20-0400 SaO2% (BldA) [Mass fraction] 97 % Tristan Bimal Other [employer] Other 01-05-2022 11:20-0400 Systolic blood pressure 122 mm[Hg] Tristan Bimal Other [employer] Other 12-28-2021 11:30-0400 Body height 182.88 cm Ramona Petty Other [employer] Other 12-28-2021 11:30-0400 Body mass index (BMI) [Ratio] 34.04 kg/m2 Ramona Petty Other [employer] Other 12-28-2021 11:30-0400 Body temperature 96.5 [degF] Ramona Petty Other [employer] Other 12-28-2021 11:30-0400 Body weight 113.85 kg Ramona Monrealnolberto Other [employer] Other 12-28-2021 11:30-0400 Diastolic blood pressure 80 mm[Hg] Ramona Monrealnolberto Other [employer] Other 12-28-2021 11:30-0400 Respiratory rate 20 /min Ramona Monrealnolberto Other [employer] Other 12-28-2021 11:30-0400 SaO2% (BldA) [Mass fraction] 96 % Ramona Monrealnolberto Other [employer] Other 12-28-2021 11:30-0400 Systolic blood pressure 132 mm[Hg] Ramona Monrealnolberto Other [employer] Other 11-24-2021 12:55-0400 Body temperature 98.3 [degF] DO Ricarda Ball Work Phone: [facility] 11-24-2021 12:55-0400 Diastolic blood pressure 94 mm[Hg] DO Ricarda Ball Work Phone: [facility] 11-24-2021 12:55-0400 Heart rate 85 /min DO Ricarda Ball Work Phone: [facility] 11-24-2021 12:55-0400 Respiratory rate 18 /min DO Ricarda Ball Work Phone: [facility] 11-24-2021 12:55-0400 SaO2% (BldA) [Mass fraction] 95 % DO Ricarda Ball Work Phone: [facility] 11-24-2021 12:55-0400 Systolic blood pressure 163 mm[Hg] DO Ricarda Ball Work Phone: [facility] 11-24-2021 12:52-0400 Body height 182.88 cm DO Ricarda Ball Work Phone: [facility] 11-24-2021 12:52-0400 Body mass index (BMI) [Ratio] 35.9 kg/m2 DO Ricarda Ball Work Phone: [facility] 11-24-2021 12:52-0400 Body weight 120.2 kg DO Ricarda Ball Work Phone: [facility] 11-20-2021 12:57-0400 Heart rate 81 /min DO Ricarda Ball Work Phone: [facility] 11-20-2021 12:57-0400 Respiratory rate 18 /min DO Ricarda Ball Work Phone: [facility] 11-20-2021 12:00-0400 Body temperature 97.3 [degF] DO Ricarda Ball Work Phone: [facility] 11-20-2021 12:00-0400 Diastolic blood pressure 79 mm[Hg] DO Ricarda Ball Work Phone: [facility] 11-20-2021 12:00-0400 SaO2% (BldA) [Mass fraction] 100 % DO Ricarda Ball Work Phone: [facility] 11-20-2021 12:00-0400 Systolic blood pressure 145 mm[Hg] DO Ricarda Ball Work Phone: [facility] 11-20-2021 05:53-0400 Body weight 127.8 kg DO Ricarda Ball Work Phone: [facility] 11-19-2021 16:06-0400 Inhaled oxygen flow rate 98 L/min DO Ricarda Ball Work Phone: [facility] 11-17-2021 15:08-0400 Body height 182.88 cm DO Ricarda Ball Work Phone: [facility] 11-16-2021 16:33-0400 Body mass index (BMI) [Ratio] 35.6 kg/m2 DO Ricarda Ball Work Phone: [facility] 11-09-2021 10:20-0400 Body height 182.88 cm Tristan Bimal Other [employer] Other 11-09-2021 10:20-0400 Body mass index (BMI) [Ratio] 34.42 kg/m2 Tristan Bimal Other [employer] Other 11-09-2021 10:20-0400 Body temperature 97.5 [degF] Tristan Bimal Other [employer] Other 11-09-2021 10:20-0400 Body weight 115.12 kg Tristan Bimal Other [employer] Other 11-09-2021 10:20-0400 Diastolic blood pressure 71 mm[Hg] Tristan Bimal Other [employer] Other 11-09-2021 10:20-0400 Respiratory rate 20 /min Tristan Bimal Other [employer] Other 11-09-2021 10:20-0400 SaO2% (BldA) [Mass fraction] 99 % Tristan Bimal Other [employer] Other 11-09-2021 10:20-0400 Systolic blood pressure 111 mm[Hg] Tristan Bimal Other [employer] Other 05-24-2021 15:09-0400 Body height 182.88 cm Ricarda Al Work Phone: [facility] Work Phone: 05-24-2021 15:09-0400 Body mass index (BMI) [Ratio] 37.7 kg/m2 Ricarda Al Work Phone: [employer] [facility] Work Phone: 05-24-2021 15:09-0400 Body surface area Derived from formula 2.45 m2 Ricarda Al Work Phone: [facility] Work Phone: 05-24-2021 15:09-0400 Body temperature 97.7 [degF] Ricarda Al Work Phone: [facility] Work Phone: 05-24-2021 15:09-0400 Body weight 126.1 kg Ricarda Al Work Phone: [employer] [facility] Work Phone: 05-24-2021 15:09-0400 Diastolic blood pressure 94 mm[Hg] Ricarda Al Work Phone: [facility] Work Phone: 05-24-2021 15:09-0400 Heart rate 104 /min Ricarda Al Work Phone: [facility] Work Phone: 05-24-2021 15:09-0400 Systolic blood pressure 153 mm[Hg] Ricarda Al Work Phone: [facility] Work Phone: 05-17-2021 17:20-0400 Body height 182.88 cm Tristan Bimal Other [employer] Other 05-17-2021 17:20-0400 Body mass index (BMI) [Ratio] 33.71 kg/m2 Tristan Bimal Other [employer] Other 05-17-2021 17:20-0400 Body temperature 96.7 [degF] Tristan Bimal Other [employer] Other 05-17-2021 17:20-0400 Body weight 112.76 kg Tristan Bimal Other [employer] Other 05-17-2021 17:20-0400 Diastolic blood pressure 76 mm[Hg] Tristan Bimal Other [employer] Other 05-17-2021 17:20-0400 Respiratory rate 18 /min Tristan Bimal Other [employer] Other 05-17-2021 17:20-0400 SaO2% (BldA) [Mass fraction] 98 % Tristan Bimal Other [employer] Other 05-17-2021 17:20-0400 Systolic blood pressure 132 mm[Hg] Tristan Bimal Other [employer] Other 04-26-2021 13:59-0400 Body height 182.88 cm Ricarda Meyers [employer] Work Phone: [facility] Work Phone: 04-26-2021 13:59-0400 Body mass index (BMI) [Ratio] 37.7 kg/m2 Ricarda Meyers [employer] Work Phone: [facility] Work Phone: 04-26-2021 13:59-0400 Body surface area Derived from formula 2.45 m2 Ricarda Meyers [employer] Phone: [facility] Work Phone: 04-26-2021 13:59-0400 Body temperature 96 [degF] Ricarda Meyers [employer] Work Phone: [facility] Work Phone: 04-26-2021 13:59-0400 Body weight 126.1 kg Ricarda Meyers [employer] Work Phone: [facility] Work Phone: 04-26-2021 13:59-0400 Diastolic blood pressure 65 mm[Hg] Ricarda Meyers Ball Work Phone: [facility] Work Phone: 04-26-2021 13:59-0400 Heart rate 72 /min Ricarda Meyers Ball Work Phone: [facility] Work Phone: 04-26-2021 13:59-0400 Respiratory rate 18 /min Ricarda Meyers Ball Work Phone: [facility] Work Phone: 04-26-2021 13:59-0400 Systolic blood pressure 112 mm[Hg] Ricarda Meyers Ball Work Phone: [facility] Work Phone: 03-09-2021 14:13-0400 Body height 182.88 cm Ricarda Meyers Ball Work Phone: [facility] Work Phone: 03-09-2021 14:13-0400 Body mass index (BMI) [Ratio] 37.74 kg/m2 Ricarda Meyers [employer] Work Phone: [facility] Work Phone: 03-09-2021 14:13-0400 Body surface area Derived from formula 2.45 m2 Ricarda Meyers Ball Work Phone: [facility] Work Phone: 03-09-2021 14:13-0400 Body temperature 96.6 [degF] Ricarda Meyers Ball Work Phone: [facility] Work Phone: 03-09-2021 14:13-0400 Body weight 126.21 kg Ricarda E Ball Work Phone: [facility] Work Phone: 03-09-2021 14:13-0400 Diastolic blood pressure 74 mm[Hg] Ricarda E Ball Work Phone: [facility] Work Phone: 03-09-2021 14:13-0400 Heart rate 73 /min Ricarda E Ball Work Phone: [facility] Work Phone: 03-09-2021 14:13-0400 Systolic blood pressure 135 mm[Hg] Ricarda Meyers Ball Work Phone: [facility] Work Phone: 02-04-2021 14:27-0400 Body height 182.88 cm Ricarda E Ball Work Phone: [facility] Work Phone: 02-04-2021 14:27-0400 Body mass index (BMI) [Ratio] 35.74 kg/m2 Ricarda Meyers Ball Work Phone: [facility] Work Phone: 02-04-2021 14:27-0400 Body surface area Derived from formula 2.4 m2 Ricarda E Ball Work Phone: [facility] Work Phone: 02-04-2021 14:27-0400 Body temperature 96.4 [degF] Ricarda Meyers Ball Work Phone: [facility] Work Phone: 02-04-2021 14:27-0400 Body weight 119.52 kg Ricarda E Ball Work Phone: [facility] Work Phone: 02-04-2021 14:27-0400 Diastolic blood pressure 84 mm[Hg] Ricarda E Ball Work Phone: [facility] Work Phone: 02-04-2021 14:27-0400 Heart rate 71 /min Ricarda E Ball Work Phone: [facility] Work Phone: 02-04-2021 14:27-0400 Systolic blood pressure 139 mm[Hg] Ricarda E Ball Work Phone: [facility] Work Phone: 01-07-2021 14:06-0400 Body mass index (BMI) [Ratio] 35.4 kg/m2 Ricarda E Ball Work Phone: [facility] Work Phone: 01-07-2021 14:06-0400 Body surface area Derived from formula 2.39 m2 Ricarda E Ball Work Phone: [facility] Work Phone: 01-07-2021 14:06-0400 Body temperature 97.3 [degF] Ricarda E Ball Work Phone: [facility] Work Phone: 01-07-2021 14:06-0400 Body weight 118.39 kg Ricarda E Ball Work Phone: [facility] Work Phone: 01-07-2021 14:06-0400 Diastolic blood pressure 76 mm[Hg] Ricarda E Ball Work Phone: [facility] Work Phone: 01-07-2021 14:06-0400 Heart rate 69 /min Ricarda E Ball Work Phone: [facility] Work Phone: 01-07-2021 14:06-0400 Respiratory rate 18 /min Ricarda E Ball Work Phone: [facility] Work Phone: 01-07-2021 14:06-0400 Systolic blood pressure 129 mm[Hg] Ricarda E Ball Work Phone: [facility] Work Phone: 11-23-2020 15:23-0400 Body mass index (BMI) [Ratio] 34.62 kg/m2 [facility] Work Phone: 11-23-2020 15:23-0400 Body surface area Derived from formula 2.36 m2 Ricarda [facility] Work Phone: 11-23-2020 15:23-0400 Body temperature 96.8 [degF] Ricarda [facility] Work Phone: 11-23-2020 15:23-0400 Body weight 115.78 kg Ricarda [facility] Work Phone: 11-23-2020 15:23-0400 Diastolic blood pressure 82 mm[Hg] Ricarda [facility] Work Phone: 11-23-2020 15:23-0400 Heart rate 77 /min Ricarda [facility] Work Phone: 11-23-2020 15:23-0400 Respiratory rate 18 /min Ricarda [facility] Work Phone: 11-23-2020 15:23-0400 Systolic blood pressure 141 mm[Hg] Ricarda [facility] Work Phone: 07-12-2020 13:20-0500 BMI (Body Mass Index) 36.91 kg/m2 Lonnie Hardwick [facility] Work Phone: 07-12-2020 13:20-0500 Body Temperature 98.5 [degF] Lonnie Hardwick [facility] Work Phone: Comment on above: Method: Temporal 07-12-2020 13:20-0500 Body weight 123.44 kg Lonnie Hardwick [facility] Work Phone: 07-12-2020 13:20-0500 BP Diastolic 106 mm[Hg] Lonnie Ronen [facility] Work Phone: 07-12-2020 13:20-0500 BP Systolic 164 mm[Hg] Lonnie Ronen [facility] Work Phone: 07-12-2020 13:20-0500 BSA (Body Surface Area) 2.43 m2 Lonnie Ronen [facility] Work Phone: 07-12-2020 13:20-0500 Height 182.88 cm Lonnie Ronen [facility] Work Phone: 07-12-2020 13:20-0500 Pulse (Heart Rate) 106 /min Lonnie Ronen [facility] Work Phone: 06-30-2020 13:38-0500 BMI (Body Mass Index) 37.16 kg/m2 Hadley Scarday [facility] Work Phone: 06-30-2020 13:38-0500 Body weight 124.29 kg Hadley Scarday [facility] Work Phone: 06-30-2020 13:38-0500 BP Diastolic 90 mm[Hg] Hadley Scarberry [facility] Work Phone: 06-30-2020 13:38-0500 BP Systolic 160 mm[Hg] Hadley Scarberry [facility] Work Phone: 06-30-2020 13:38-0500 BSA (Body Surface Area) 2.44 m2 Hadley Scarberry [facility] Work Phone: 06-30-2020 13:38-0500 Height 182.88 cm Hadley Scarberry [facility] Work Phone: 06-30-2020 13:38-0500 Pulse (Heart Rate) 78 /min Hadley Gonzalez [facility] Work Phone: 06-04-2020 13:29-0500 BMI (Body Mass Index) 37.18 kg/m2 Hadleyshreya Gonzalez [facility] Work Phone: 06-04-2020 13:29-0500 Body Temperature 97.34 [degF] Hadleyshreya Gonzalez [facility] Work Phone: 06-04-2020 13:29-0500 Body weight 124.34 kg Hadleyshreya Gonzalez [facility] Work Phone: 06-04-2020 13:29-0500 BP Diastolic 70 mm[Hg] Hadleyshreya Gonzalez [facility] Work Phone: 06-04-2020 13:29-0500 BP Systolic 115 mm[Hg] Hadleyshreya Gonzalez [facility] Work Phone: 06-04-2020 13:29-0500 BSA (Body Surface Area) 2.44 m2 Hadley Gonzalez [facility] Work Phone: 06-04-2020 13:29-0500 Height 182.88 cm Hadley Gonzalez [facility] Work Phone: 06-04-2020 13:29-0500 Pulse (Heart Rate) 73 /min Hadleyshreya Gonzalez [facility] Work Phone: 06-04-2020 13:29-0500 Pulse Oximetry 97 % Hadley Gonzalez [facility] Work Phone: Comment on above: Source: 06-04-2020 13:29-0500 Respiratory Rate 16 /min Hadleyshreya Gonzalez [facility] Work Phone: 06-04-2020 13:29-0500 0 1 Hadley Scarberry [facility] Work Phone: Comment on above: Pain Scale 04-16-2020 14:30-0400 BMI (Body Mass Index) 33.91 kg/m2 Hadley Scarberry [facility] Work Phone: 04-16-2020 14:30-0400 Body weight 113.4 kg Hadley Scarberry TV-Hqdxcbz-AHUPC [facility] Work Phone: 04-16-2020 14:30-0400 BP Diastolic 67 mm[Hg] Hadley Scarberry RB-Xhpbzza-NCQQZ [facility] Work Phone: 04-16-2020 14:30-0400 BP Systolic 124 mm[Hg] Hadley Scarberry QQ-Xdxdsdr-TRZSL [facility] Work Phone: 04-16-2020 14:30-0400 BSA (Body Surface Area) 2.34 m2 Hadley Scarberry HA-Okikipp-EHJEC [facility] Work Phone: 04-16-2020 14:30-0400 Height 182.88 cm Hadley Scarberry LH-Tacpjrv-RKTEQ [facility] Work Phone: 04-16-2020 14:30-0400 Pulse (Heart Rate) 81 /min Hadley Scarberry DW-Okefped-[facility] Work Phone: 03-17-2020 12:44-0400 BMI (Body Mass Index) 33.69 kg/m2 Hadley Scarberry [facility] Work Phone: 03-17-2020 12:44-0400 Body Temperature 97.5 [degF] Hadley Scarberry [facility] Work Phone: 03-17-2020 12:44-0400 Body weight 112.66 kg Hadley Scarberry [facility] Work Phone: 03-17-2020 12:44-0400 BP Diastolic 88 mm[Hg] Hadley Scarberry [facility] Work Phone: 03-17-2020 12:44-0400 BP Systolic 147 mm[Hg] Hadley Gonzalez [facility] Work Phone: 03-17-2020 12:44-0400 BSA (Body Surface Area) 2.34 m2 Hadley Gonzalez [facility] Work Phone: 03-17-2020 12:44-0400 Height 182.88 cm Hadley Gonzalez [facility] Work Phone: 03-17-2020 12:44-0400 Pulse (Heart Rate) 77 /min Hadley Gonzalez [facility] Work Phone: 03-06-2018 13:00-0400 BMI (Body Mass Index) 35.95 kg/m2 [facility] 03-06-2018 13:00-0400 BP Diastolic 77 mm[Hg] [facility] 03-06-2018 13:00-0400 BP Systolic 110 mm[Hg] [facility] 03-06-2018 13:00-0400 Height 182.9 cm [facility] 03-06-2018 13:00-0400 Pulse (Heart Rate) 102 /min [facility] 03-06-2018 13:00-0400 Weight 120.25 kg [facility] Encounters Encounter Date Encounter Type Care Provider Facility Start: 03-17-2024 End: 03-17-2024 ambulatory Raymond Tang Facility[facility] Start: 03-17-2024 End: 03-17-2024 Patient encounter procedure Raymond Akevaristo [facility] Start: 12-31-2023 End: 12-31-2023 Office outpatient visit 40 minutes Gunner Baez MD Work Phone: [facility] Comment on above: Angina, class II (CM S-HCC) (Primary Dx); Dilated cardiomyopathy (Multi); Primary hypertension; Two-vessel coronary artery disease; Abnormal electrocardiogram; Mixed hyperlipidemia; Hypertensive heart and chronic kidney disease without heart failure, with stage 1 through stage 4 chronic kidney disease, or unspecified chronic kidney disease; Ischemic cardiomyopathy; Chronic deep vein thrombosis (DVT) of proximal vein of lower extremity, unspecified laterality (Multi); BMI 31.0-31.9,adult; Current every day smoker Start: 12-11-2023 End: 12-11-2023 ambulatory RICARDA AL Facility:[facility] Start: 12-11-2023 End: 12-11-2023 Patient encounter procedure Kathrine Cain MD Work Phone: Ophthalmology Comment on above: 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 (Primary Dx) Start: 12-03-2023 End: 12-03-2023 ambulatory Raymond Akkina Facility:[facility] Start: 12-03-2023 End: 12-03-2023 Patient encounter procedure Raymond Akkina [facility] Start: 11-12-2023 Telephone encounter Patrice Castañeda MD Work Phone: Ophthalmology Comment on above: Return To Work Lette r Start: 10-23-2023 End: 10-23-2023 ambulatory [facility] Work Phone: Start: 10-23-2023 End: 10-23-2023 Patient encounter procedure [facility] Work Phone: Start: 10-22-2023 End: 10-22-2023 ambulatory PATRICE CASTAÑEDA Facility:[facility] Start: 10-22-2023 End: 10-22-2023 Patient encounter procedure Patrice Castañeda MD Work Phone: Ophthalmology Comment on above: 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 (Primary Dx); Pseudophakia Start: 10-18-2023 End: 10-19-2023 ambulatory Mbanefo OJUKWU Facility:[facility] Start: 10-18-2023 End: 10-19-2023 Observation Mbanefo OJUKWU [facility] Start: 10-05-2023 End: 10-05-2023 Emergency department patient visit Chriss Oliver [facility] Start: 10-03-2023 End: 10-03-2023 ambulatory RICARDA AL Facility:[facility] Start: 10-03-2023 End: 10-03-2023 Patient encounter procedure Patrice Castañeda MD Work Phone: Ophthalmology Comment on above: Pseudophakia (Primar y Dx); Interstitial keratitis of both eyes; Epiretinal membrane (ERM) of both eyes Start: 09-26-2023 End: 09-26-2023 Emergency department patient visit ANTONIO BROWN Facility:[facility] Start: 09-26-2023 End: 09-26-2023 ambulatory RICARDA AL Facility:[facility] Start: 09-26-2023 End: 09-26-2023 Office outpatient new 45 minutes Shaneka Dixon PA-C Work Phone: [facility] Comment on above: Red eye (Primary Dx) ; Eye pain, right Start: 09-26-2023 Patient encounter procedure Karuna Amaya MD Work Phone: Ophthalmology Comment on above: Abrasion of left cor lester, initial encounter (Primary Dx) Start: 09-26-2023 Telephone encounter Karuna Amaya MD Work Phone: Ophthalmology Comment on above: Outside provider yvrose l Start: 09-12-2023 End: 09-12-2023 ambulatory RICARDA AL Facility:[facility] Start: 09-12-2023 End: 09-12-2023 Patient encounter procedure Patrice Castañeda MD Work Phone: Ophthalmology Comment on above: Pseudophakia (Primar y Dx) Start: 09-12-2023 End: 09-12-2023 ambulatory PATRICE CASTAÑEDA Facility:[facility] Start: 09-08-2023 End: 09-10-2023 Evaluation and management of inpatient Sloan Benites Facility:[facility] Start: 09-08-2023 End: 09-10-2023 Evaluation and management of inpatient Tanner REYNOSO [facility] Start: 09-03-2023 End: 09-03-2023 ambulatory COLEALTA POOLE Facility:[facility] Start: 09-03-2023 End: 09-03-2023 Preprocedural examination done Cole Leisa PATROL [facility] Work Phone: [facility] Work Phone: Start: 09-03-2023 End: 09-03-2023 Patient encounter procedure Ultrasound Opht Main Work Phone: Ophthalmology Comment on above: Nuclear sclerotic ca taract of both eyes (Primary Dx) Preop examination (P rimary Dx); Nuclear sclerosis, right; History of CVA (cerebrovascular accident) without residual deficits; History of TIA (transient ischemic attack); Ischemic cardiomyopathy; Chronic systolic (congestive) heart failure (HCC); Hypertension, unspecified type; Chronic atrial fibrillation, unspecified (HCC); Chronic obstructive pulmonary disease, unspecified COPD type (HCC); Portal hypertension (HCC); Non-insulin dependent type 2 diabetes mellitus (HCC); Personal history of nicotine dependence; Chronic renal failure, stage 4 (severe) (HCC) Start: 09-03-2023 Encounter for other preprocedural examination CO[facility]NMON[facility] Start: 08-31-2023 End: 08-31-2023 [facility] Start: 08-31-2023 End: 08-31-2023 Patient encounter procedure Raymond aTng [facility] Start: 08-31-2023 End: 08-31-2023 Office outpatient visit 25 minutes Gunner Baez MD Work Phone: [facility] Comment on above: Dilated cardiomyopat hy (CMS/HCC) (Primary Dx); Abnormal electrocardiogram; Primary hypertension; Mixed hyperlipidemia; Hypertensive heart and chronic kidney disease without heart failure, with stage 1 through stage 4 chronic kidney disease, or unspecified chronic kidney disease; Angina, class II (CMS/HCC); Two-vessel coronary artery disease; BMI 34.0-34.9,adult; History of TIA (transient ischemic attack); Dyspnea, unspecified type Start: 08-27-2023 Bamboo flowsheet Chon Gutiérrez DPM FACFAS Work Phone: [facility] Start: 08-27-2023 Bamboo flowsheet Chon Gutiérrez DPM FACFAS Work Phone: [facility] Start: 08-27-2023 End: 08-27-2023 ambulatory CHON GUTIÉRREZ Not Available Start: 08-27-2023 End: 08-27-2023 Patient encounter procedure Chon Gutiérrez DPM FACFAS Work Phone: [facility] Comment on above: 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) (Primary Dx); Onychomycosis; Pain in left toe(s); Pain in right toe(s) Start: 08-26-2023 Chart abstracting Chon Gutiérrez DPM FACFAS Work Phone: [facility] Start: 08-18-2023 End: 08-18-2023 ambulatory RICARDA AL Facility:[facility] Start: 08-18-2023 End: 08-18-2023 Patient encounter procedure RICARDA AL [facility] Start: 08-17-2023 End: 08-17-2023 ambulatory RICARDA AL Facility:[facility] Start: 08-13-2023 End: 08-13-2023 ambulatory Ricarda Al Other [email or web address] Other Start: 08-13-2023 Office outpatient vi sit 15 minutes Ricarda Al [facility] Start: 08-13-2023 End: 08-13-2023 Patient encounter procedure [facility] Start: 08-03-2023 End: 08-03-2023 ambulatory Ricarda Al Other [email or web address] Other Start: 08-03-2023 Telephone encounter Ricarda MUKHERJEE G [facility] Start: 08-02-2023 End: 08-02-2023 ambulatory Ricarda Al Other [email or web address] Other Start: 08-02-2023 Office outpatient vi sit 25 minutes Ricarda Al [facility] Start: 08-02-2023 Telephone encounter Ricarda MUKHERJEE [facility] Start: 08-02-2023 End: 08-02-2023 [facility] encounter [facility] Work Phone: Start: 06-18-2023 End: 06-18-2023 ambulatory Ricarda Al Other [email or web address] Other Start: 06-18-2023 Telephone encounter Ricarda Al [facility] Start: 05-22-2023 End: 05-22-2023 ambulatory RICARDA AL Facility:[facility] Start: 05-07-2023 End: 05-07-2023 ambulatory Ricarda Al Other [email or web address] Other Start: 05-07-2023 Transitional care saniya seymour srvc 14 day discharge Ricarda Al [facility] Start: 04-30-2023 End: 05-02-2023 ambulatory Rema SOLORZANO Facility:[facility] Start: 04-20-2023 End: 04-21-2023 Emergency department patient visit Jose Iqbal [facility] Start: 04-20-2023 End: 04-20-2023 ambulatory Ricarda Al Other [email or web address] Other Start: 04-20-2023 Office outpatient vi sit 15 minutes Ricarda Al [facility] Start: 04-10-2023 End: 04-11-2023 ambulatory RICARDA AL Facility:[facility] Start: 04-10-2023 End: 04-10-2023 Patient encounter procedure Peyton Arellano MD Work Phone: Urology Comment on above: 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 (Primary Dx); History of implantation of penile prosthesis; Type 2 diabetes mellitus with other specified complication, without long-term current use of insulin (HCC); Hidradenitis suppurativa; Tobacco abuse; Deep vein thrombosis (DVT) of right lower extremity, unspecified chronicity, unspecified vein (HCC); Primary hypertension; Ischemic cardiomyopathy; 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 600 DO Work Phone: Start: 11-20-[address] Ricarda Al Facility: Start: 10-16-2022 Office outpatient vi sit 25 minutes Ricarda Al Work Phone: [id number] Work Phone: Start: 10-16-2022 Patient encounter procedure Ricarda Al Work Phone: [facility] [place] Work Phone: Start: 10-16-[address] Ricarda Al Facility:[id number] Start: 09-26-2022 End: 09-26-2022 ambulatory Referral [email or web address] Other Start: 09-26-2022 Telephone encounter Ramona reeder [facility] Start: 09-18-2022 End: 09-18-2022 Patient encounter procedure Raymond Tang [facility] Start: 09-13-2022 End: 09-13-2022 ambulatory Ricarda Al Other [email or web address] Other Start: 09-13-2022 Office outpatient vi sit 25 minutes Ricarda Al [facility] Start: 09-04-2022 Patient encounter procedure Ricarda Meyers Mikaela Work Phone: [id number] Work Phone: Start: 09-04-[address] Ricarda Al Facility:[id number] Start: 08-25-[address] Ricarda Al Facility:[id number] Start: 08-18-2022 End: 08-19-[address] KHANG HEATH Facility:H1 Start: 08-11-2022 End: 03-19-2023 Recurring Renita Wolfe [facility] Start: 08-03-2022 ambulatory RICARDA AL [facility] Start: 07-30-2022 End: 07-30-2022 ambulatory Ricarda Al Other [email or web address] Other Start: 07-30-2022 Telephone encounter Ricarda lA G [facility] Start: 07-28-2022 End: 07-28-2022 Patient encounter procedure Raymond Tang [facility] Start: 07-27-2022 End: 07-27-2022 ambulatory Ramona Petty Other [email or web address] Other Start: 07-27-2022 Office outpatient vi sit 15 minutes Ramona Petty [facility] Vascular Surgery Start: 07-10-2022 End: 07-11-[address] RICARDA AL Facility:H1 Start: 06-29-2022 End: 06-29-2022 ambulatory Fifi Pitts Other [email or web address] Other Start: 06-29-2022 Follow-up encounter Fifi Vyas [facility] Start: 06-08-2022 Office outpatient vi sit 25 minutes Ricarda Al Work Phone: [facility] 600 DO Work Phone: Start: 06-08-2022 ambulatory Gunner Lala lity: Start: 05-22-2022 End: 05-22-2022 Emergency department patient visit Jose Iqbal [facility] Start: 05-10-2022 End: 05-10-2022 ambulatory Ramona Petty Other [email or web address] Other Start: 05-10-2022 Postop follow up vis it related to original px Ramona Petty [facility] Start: 05-04-2022 End: 08-02-2022 Recurring RICARDA AL [facility] Start: 04-28-2022 End: 05-01-2022 ambulatory UNKNOWN PROVIDER Facility:[facility] Start: 04-28-2022 End: 04-28-2022 Emergency department patient visit [facility] Emergency Triage, Treat and Transport Comment on above: Arrived Start: 04-17-[address] Ricarda Al Facility:[id number] Start: 04-16-[address] Ricarda Al Facility:[id number] Start: 04-15-[address] César Hickman II Facility:[id number] Start: 04-14-[address] César Hickman II Facility:[id number] Start: 04-13-2022 End: 04-24-2022 Evaluation and management of inpatient Ciarra Alves Facility:[facility] Start: 04-13-[address] César Hickman II Facility:[id number] Start: 04-12-2022 End: 04-13-[address] ANDRESSA FERRIS Facility:H1 Start: 03-09-2022 End: 03-09-2022 ambulatory Fifi Pitts Other [email or web address] Other Start: 03-09-2022 Follow-up encounter Fifi Gisselle Vyas [facility] Start: 03-06-2022 End: 03-06-2022 ambulatory Tristan Bimal Other [email or web address] Other Start: 03-06-2022 Office outpatient vi sit 25 minutes Tristan Bimal [facility] Start: 02-21-2022 End: 02-21-2022 ambulatory Tristan Bimal Facility:[facility] Start: 02-21-2022 End: 02-21-2022 Patient encounter procedure DO Ricarda Al Work Phone: [facility] [place] Start: 02-20-2022 End: 02-20-2022 ambulatory Tristan Bimal Other [email or web address] Other Start: 02-20-2022 Telephone encounter Tristan Bimal [facility] Start: 02-09-2022 End: 02-09-[address] ANDRESSA FERRIS Facility:H1 Start: 02-09-2022 End: 02-09-2022 Emergency department patient visit Ricarda Al Facility:[facility] Start: 02-08-2022 End: 02-09-2022 Emergency department patient visit DO Ricarda Al Work Phone: [facility] Start: 02-02-2022 End: 02-02-2022 ambulatory Ramona Petty Other [email or web address] Other Start: 02-02-2022 Postop follow up vis it related to original px Ramona Petty [facility] Start: 01-25-2022 End: 01-26-[address] RICARDA AL Facility:H1 Start: 01-20-[address] Alla Kumar Facility:[id number] Start: 01-18-2022 End: 01-18-2022 Emergency department patient visit Ricarda Al Facility:[facility] Start: 01-18-2022 End: 01-18-2022 Emergency department patient visit DO Ricarda Al Work Phone: [facility] Start: 01-16-2022 End: 01-16-2022 ambulatory Ramona Petty Facility:[facility] Start: 01-16-2022 End: 01-16-2022 Admission to same day surgery center DO Ricarda Al Work Phone: [facility] [place] Start: 01-11-2022 End: 04-12-2022 Recurring [facility] PETTY [facility] [facility] Start: 01-09-2022 End: 01-09-2022 ambulatory Ramona Petty Facility:[facility] Start: 01-09-2022 End: 01-09-2022 Admission to same day surgery center DO Ricarda Al Work Phone: [facility] [place] Start: 01-05-2022 End: 01-05-2022 ambulatory Tristan Bimal Other [facility] [employer] Other Start: 01-05-2022 Office outpatient vi sit 25 minutes Tristan Bimal [facility] Start: 01-05-2022 End: 04-05-2022 Recurring RAMONA PETTY [facility] Start: 01-03-2022 End: 01-03-2022 ambulatory Tristan Bimal Other [facility] [employer] Other Start: 01-03-2022 Telephone encounter Tristan Bimal [facility] Start: 12-30-2021 End: 12-30-2021 ambulatory Ramona Petty Facility:[facility] Start: 12-30-2021 End: 12-30-2021 Patient encounter procedure DO Ricarda Al Work Phone: [facility]Pre[facility] Start: 12-29-2021 End: 12-29-2021 ambulatory Ramona Petty Other [email or web address] Other Start: 12-29-2021 Telephone encounter Ramona reeder [facility] Start: 12-28-2021 End: 12-28-2021 ambulatory Ramona Petty Other [email or web address] Other Start: 12-28-2021 Office outpatient vi sit 25 minutes Ramona Petty [facility] Start: 12-28-2021 Telephone encounter Ramona reeder [facility] Start: 11-30-[address] Alla Kumar Facility:[id number] Start: 11-24-2021 End: 11-24-2021 Emergency department patient visit Ricarda Al Facility:[facility] Start: 11-24-2021 End: 11-24-2021 Emergency department patient visit DO Ricarda Mikaela Work Phone: [facility]Emergency Room Start: 11-23-2021 End: 11-23-2021 ambulatory Tristan Negreter Other [email or web address] Other Start: 11-23-2021 Telephone encounter Tristan Wallis [facility] Start: 11-20-2021 End: 11-20-2021 ambulatory Starla Larson Other [email or web address] Other Start: 11-20-2021 Telephone encounter Starla Larson [facility] (old) Start: 11-16-2021 End: 11-20-2021 ambulatory Ricarda Mikaela Facility:[facility] Start: 11-16-2021 End: 11-20-2021 Evaluation and management of inpatient DO Ricarda Al Work Phone: [facility] [place] [facility] Start: 11-15-2021 End: 11-16-2021 Evaluation and management of inpatient DR BRIANA LENZ . Facility: Start: 11-14-2021 End: 11-14-2021 ambulatory Tristan Negreter Other [email or web address] Other Start: 11-14-2021 Telephone encounter Tristan Bimal [facility] Start: 11-10-2021 Patient encounter procedure Ricarda Al Work Phone: [facility] Work Phone: Start: 11-09-2021 End: 11-09-2021 ambulatory Tristan Bimal Other [facility] [employer] Other Start: 11-09-2021 Office outpatient vi sit 25 minutes Tristan Bimal [facility] Start: 11-01-2021 End: 11-01-2021 ambulatory Ricarda Al Facility:[facility] Start: 07-26-2021 End: 04-11-2022 Recurring Renita Wolfe [facility] Start: 05-24-2021 Postop follow up vis it related to original px Ricarda Al Work Phone: [facility] Work Phone: Start: 05-18-2021 Telephone encounter Tristan Bimal [facility] Start: 05-17-2021 Office outpatient vi sit 25 minutes Tristan Bimal [facility] Start: 05-16-2021 Chart Update Ricarda arevalo Work Phone: [facility] [place] Work Phone: Start: 04-28-2021 Chart Update Ricarda arevalo Work Phone: [facility] Work Phone: Start: 04-27-2021 Chart Update Ricarda arevalo Work Phone: [facility] Work Phone: Start: 04-27-2021 Chart Update Ricarda arevalo Work Phone: [facility] Work Phone: Start: 04-26-2021 Office outpatient vi sit 25 minutes Ricarda Al Work Phone: [facility] Work Phone: Start: 04-22-2021 AUDIT Ricarda Mira Garcia l Work Phone: [facility] Work Phone: Start: 04-01-2021 AUDIT Ricarda Garcia l Work Phone: [facility] Work Phone: Start: 03-09-2021 Postop follow up vis it related to original px Ricarda Al Work Phone: [facility] Work Phone: Start: 02-04-2021 Postop follow up vis it related to original px Ricarda Meyers Mikaela Work Phone: [facility] Work Phone: Start: 01-21-2021 FUV, Provider: Hadley Gonzalez, Status: Pen, Time: 10:00 AM Ricarda Meyers Mikaela Work Phone: [facility] Work Phone: Start: 01-21-2021 Chart Update Ricarda Garcia l Work Phone: [facility] Work Phone: Start: 01-20-2021 Chart Update Ricarda Meyers Bal l Work Phone: [facility] Work Phone: Start: 01-07-2021 Office outpatient vi sit 25 minutes Ricarda Mira Mikaela Work Phone: [facility] Work Phone: Start: 11-23-2020 Patient encounter procedure Ricarda Mikaela [facility] Work Phone: Start: 09-29-2020 End: 09-29-2020 Orders Only Ely Wright Work Phone: [facility] Start: 07-12-2020 Patient encounter procedure Lonnie Hardwick [facility] Work Phone: Start: 06-30-2020 Patient encounter procedure Hadley Gonzalez [facility] Work Phone: Start: 06-04-2020 Patient encounter procedure Hadley Velizberry [facility] Work Phone: Start: 04-16-2020 Patient encounter procedure Hadley Velizberry [facility] Work Phone: Start: 03-31-2020 Patient encounter procedure Hadley Velizberry [facility] Work Phone: Start: 03-22-2020 Patient encounter procedure Hadley Velizberry [facility] Work Phone: Start: 03-17-2020 Patient encounter procedure Hadley Velizberry [facility] Work Phone: Start: 02-10-2020 Patient encounter procedure Hadley Velizberry [facility] Work Phone: Start: 10-15-2019 Patient encounter procedure Hadley Velizberry [facility] Work Phone: Start: 08-27-2019 Patient encounter procedure Hadley Velizberry [facility] Work Phone: Start: 11-04-2018 Patient encounter procedure Hadley Velizberry [facility] Work Phone: Start: 10-29-2018 Patient encounter procedure Hadley Velizberry [facility] Work Phone: Start: 09-18-2018 Patient encounter procedure Hadley Velizberry [facility] Work Phone: Start: 08-29-2018 Patient encounter procedure Hadley Velizberry [facility] Work Phone: Start: 08-27-2018 Patient encounter procedure Hadley Gonzalez [facility] Work Phone: Start: 07-01-2018 Patient encounter procedure BETTYE LOPES [facility] Start: 03-11-2018 Patient encounter procedure BETTYE LOPES [facility] Start: 03-06-2018 Patient encounter Bettye Vyas acility:[place] Start: 03-06-2018 End: 03-06-2018 Patient encounter Bettye Lopes Work Phone: [facility] Start: 03-06-2018 End: 03-06-2018 Office outpatient new 45 minutes Anaya Nunez Work Phone: [facility] Start: 10-11-2017 End: 10-12-2017 Ambulatory DEFAULT PHYSICIAN Facility:[facility] Patient encounter status Ricarda Al [facility] Work Phone: Procedures Date Procedure Procedure Detail Performing Clinician Start: 12-11-2023 Computerized ophthal mary imaging retina Kathrine Cain MD Work Phone: Start: 09-03-2023 IOL BIOMETRY W/ IOL CALC OU (BOTH EYES) Patrice Castañeda MD Work Phone: Start: 09-04-2022 Follow-up visit Start: 04-15-2022 Antibody screen Fariha Al Comment on above: Order Comment: Trans fuse now? Y Number of units to transfuse now? 2 Transfuse now? Y Number of units to transfuse now? 2 Result Comment: PERF ORMED BY:[facility] [place], [place] [id number] MEDICAL DIRECTORISRAEL CHAN M.D. Start: 01-16-2022 Arteriovenous fistulization DO Ricarda Al Work Phone: Start: 11-18-2021 US angiography DO Maxx Al Work Phone: Start: 11-17-2021 Diagnostic radiograp hy of abdomen DO Ricarda Al Work Phone: Start: 11-16-2021 Plain chest X-ray DO Be kadenbrunilda Al Work Phone: Start: 11-15-2021 Transfusion of Nonautologous Red Blood Cells into Peripheral Vein, Percutaneous Approach DR RICARDA AL Start: 06-30-2020 Culture bacterial quanttative colony count urine Hadley Gonzalez Start: 03-24-2020 Basic metabolic 1998 panel - Serum or Plasma Hadley Gonzalez Start: 03-24-2020 Coagulation Screen Hadley Gonzalez Start: 03-16-2020 Coagulation Screen Hadley Gonzalez Start: 03-16-2020 VASC LAB Carotid Art tyesha Duplex Ultrasound Hadley Gonzalez Start: 06-22-2013 Insertion of penile prosthesis RAMOANREANNA PETTY Start: 12-21-2012 Bilateral total scro leticia orchidectomy RAMONA PETTY Start: 07-23-2011 Appendectomy RAMONA DOLORES MARCIAL Start: 08-24-2002 Splenectomy RAMONAREANNA LOPES Appendectomy Hadley Gonzalez Bilateral orchidectomy Maxx suyapa E Ball Work Phone: Cholecystectomy Ricarda Mota all Work Phone: Creation of graft fi stula for dialysis Ricarda Al Work Phone: CYST LESION REMOVAL RAMONA PETTY Dialysis tunneled ca theter placement Ricarda Al Work Phone: foot surgery RAMONA CONTRERAS ERG Full thickness skin graft Be njamin E Ball Work Phone: Full thickness skin graft Be njamin E Ball Work Phone: gall bladder RAMONA CONTRERAS ERG figueroa Palacio (physical object) RAMONA PETTY H/O: surgery S/P insertion of penile implant Ricarda Al Work Phone: History of Gallbladd er Surgery Hadley Gonzalez History of Surgery O f The Spleen Hadley Gonzalez Insertion of inferio r vena caval filter Hadley Scarberry Insertion of penile prosthesis Ricarda Al Work Phone: Operation on fracture Benjam in Mira Al Work Phone: Operation on scrotum Hadley Sc arberry Operative procedure on foot Hadley Scarberry Procedure on penis Hadley Scar bernstein Prostatectomy Ricarda arevalo Work Phone: Skin graft recipient RAMONA PETTY Splenectomy Ricarda Al Work Phone: Tonsillectomy Hadley Scarberry Total colonoscopy Ricarda Al Work Phone: Plan of Treatment Date Care Activity Detail Author Start: 08-17-2024 Glaucoma screening Dilated Retinal E xam [facility] Start: 05-09-2024 End: 05-09-2024 Patient encounter procedure 05/09/2024 10:00 AM EDT Office Visit [address] [place] [address] Gunner Baez MD [address] [facility] [address] [place] [address] [facility] Start: 05-05-2024 End: 05-05-2024 Patient encounter procedure 05/05/2024 12:45 PM EDT Office Visit [facility] [address] [place], [place] [id number] Patrice Castañeda MD [address] [place] [address] 6 Month F/U Ophthalmology Comment on above: 6 Month F/U Start: 03-23-2024 Influenza vaccination Influenz a Vaccine (Season Ended) [facility] Start: 02-29-2024 End: 02-29-2024 Patient encounter procedure 02/29/2024 9:00 AM EDT Office Visit [address] [place] [address] Leora Camarena MD [address] [facility] [address] [place] [address] [facility] Start: 11-26-2023 End: 11-26-2023 Patient encounter procedure 11/26/2023 1:00 PM EDT Office Visit [facility] [address] [place] [address] Sajan Ramírez MD [address] [place] [address] *NEW PER SEE, ERM OU EVAL, DFE/OCT Ophthalmology Comment on above: *NEW PER SEE, ERM OU EVAL, DFE/OCT Start: 11-20-2023 End: 11-20-2023 Patient encounter procedure 11/20/2023 1:00 PM EDT Office Visit [facility] [address] [place] [address] Lani Rivera OD [address] [place] [address] 4-15 AM LVM advising his ins is OON for the CL exam can be self pay $150 or can go to Berta Zamudio @ ph. [phone] Ophthalmology Comment on above: 4-15 AM LVM advising his ins is OON for the CL exam can be self pay $150 or can go to Berta Zamudio @ ph. [phone] Start: 08-27-2023 End: 08-27-2023 Patient encounter procedure NOMS NMA POD Comment on above: Arrived Start: 07-23-2023 Behavioral Health Screening Behavioral Health Screening [facility] Start: 07-23-2023 Depression Assessment Depression Ass essment [facility] Start: 07-03-2023 FUV, Provider: Gunner Baez, Status: Pen, Time: 10:40 AM FUV, Provider: Gunner Baez, Status: Pen, Time: 10:40 AM -[facility] [address] DO Work Phone: Start: 04-13-2023 Echocardiography Echocardiogram [facility] Start: 03-23-2023 Covid-19 Vaccine ( season) Covid-19 Vaccine ( season) [facility] Start: 03-23-2023 Influenza vaccination Influenza Vacc ine (#1) [facility] Start: 01-20-2023 Glaucoma screening Diabetes: R etinopathy Screening [facility] Start: 12-19-2022 FUV, Provider: Gunner Baez, Status: Pen, Time: 10:00 AM FUV, Provider: Gunner Baez, Status: Pen, Time: 10:00 AM -[facility] [address] DO Work Phone: Start: 11-20-2022 FUV, Provider: Gunner Baez, Status: Pen, Time: 10:10 AM FUV, Provider: Gunner Baez, Status: Pen, Time: 10:10 AM LH-Jxutaqb-Wvyxj Leslie Work Phone: Start: 09-26-2022 NPV, Provider: Marta Harper, Status: Pen, Time: 1:00 PM NPV, Provider: Marta Harper, Status: Pen, Time: 1:00 PM XX-Qhfpaqh-Hagpxe [address] Work Phone: Start: 2022 Hepatitis B Vaccine (1 of 3 - Risk 3-dose series) Hepatitis B Vaccine (1 of 3 - Risk 3-dose series) [facility] Start: 2022 RSV patient s and/or patients aged 60+ years (1 - 1-dose 60+ series) RSV patients and/or patients aged 60+ years (1 - 1-dose 60+ series) [facility] Start: 2022 RSV Vaccine (1 - 1-d ose 60+ series) RSV Vaccine (1 - 1-dose 60+ series) [facility] Start: 07-23-2022 Depression Assessment Depression Ass essment [facility] Start: 05-03-2022 Complete blood count Hemoglobin/Bishop tocrit [facility] Start: 05-03-2022 Creatinine measurement [facility] Start: 05-03-2022 Potassium measurement Potassium Leve l [facility] Start: 04-22-2022 Influenza vaccination Influenza Vacc ine (#1) [facility] Start: 04-14-2022 FUV, Provider: Gunner Baez, Status: Pen, Time: 9:00 AM FUV, Provider: Gunner Baez, Status: Pen, Time: 9:00 AM UM-[id number]-Khd well [address] Work Phone: Start: 01-21-2022 Serum Creatinine Serum Creatinine Cl [facility] Start: 01-16-2022 End: 01-16-2022 [facility] Work Phone: Start: 01-09-2022 Arteriovenous fistulization OR AV Fistula Dialysis Graft (Right) [facility] Start: 01-09-2022 [facility] Work Phone: Start: 11-20-2021 [facility] Work Phone: Start: 11-18-2021 Referral to body fitter [facility] Work Phone: Start: 11-18-2021 Referral to vascular surgeon [facility] Work Phone: Start: 11-16-2021 Hospital admission [facility] Work Phone: Start: 11-16-2021 Referral to counseling psychologist [facility] Work Phone: Start: 11-04-2021 Hepatitis C antibody , confirmatory test Dilated Retinal Exam [facility] Start: 09-27-2021 FUV, Provider: Gunner Baez, Status: Pen, Time: 8:40 AM FUV, Provider: Gunner Baez, Status: Pen, Time: 8:40 [address]-Awpyipy-Hxmpr Leslie Work Phone: Start: 09-09-2021 FUV, Provider: Lonnie Hardwick, Status: Pen, Time: 1:30 PM FUV, Provider: Lonnie Hardwick, Status: Pen, Time: 1:30 PM [facility] Work Phone: Start: 05-24-2021 POV, Provider: Lonnie Hardwick, Status: Pen, Time: 3:10 PM POV, Provider: Lonnie Hardwick, Status: Pen, Time: 3:10 PM ML-Whkwyad-Woajh Leslie Work Phone: Start: 05-10-2021 FUV, Provider: Gunner Baez, Status: Pen, Time: 12:00 PM FUV, Provider: Gunner Baez, Status: Pen, Time: 12:00 PM [facility] Work Phone: Start: 04-26-2021 FUV, Provider: Lonnie Hardwick, Status: Pen, Time: 2:00 PM FUV, Provider: Lonnie Hardwick, Status: Pen, Time: 2:00 PM [facility] Work Phone: Start: 03-09-2021 FUV, Provider: Lonnie Hardwick, Status: Pen, Time: 2:30 PM FUV, Provider: Brenna Hardwickm, Status: Pen, Time: 2:30 PM [facility] Work Phone: Start: 02-04-2021 POV, Provider: Lonnie Hardwick, Status: Pen, Time: 1:50 PM POV, Provider: Lonnie Hardwick, Status: Pen, Time: 1:50 PM [facility] Work Phone: Start: 01-21-2021 FUV, Provider: Hadley Gonzalez, Status: Pen, Time: 10:00 AM FUV, Provider: Hadley Gonzalez, Status: Pen, Time: 10:00 AM [facility] Work Phone: Start: 03-23-2020 Influenza vaccinatio n given Sequential Influenza Vaccine (#1) [facility] Start: 03-23-2018 Influenza vaccination SEQUENTI AL INFLUENZA VACCINE (#1) [facility] Start: 2017 Prostate Cancer Scre ening Discussion Prostate Cancer Screening Discussion [facility] Start: 2017 Prostate specific an tigen measurement Prostate Cancer Screening Discussion [facility] Start: 03-08-2016 Hemoglobin/Hematocrit Hemoglobin/Hem atocrit [facility] Start: 03-05-2016 Hepatitis B screening Urine Albumin:Creatinine Ratio [facility] Start: 09-02-2015 Hemoglobin A1c measurement HbA1C [facility] Start: 09-02-2015 Hemoglobin A1c/Hemoglobin.total in Blood HbA1C [facility] Start: 11-18-2013 Hepatitis B screening Urine Albumin:Creatinine Ratio [facility] Start: 11-18-2013 Hepatitis B surface antibody level LDL Cholesterol [facility] Start: 10-07-2013 Pneumococcal vaccination [facility] Start: 10-07-2013 Pneumococcal Vaccine : Pediatrics (0 to 5 Years) and At-Risk Patients (6 to 64 Years) (2 of 2 - PCV) Pneumococcal Vaccine: Pediatrics (0 to 5 Years) and At-Risk Patients (6 to 64 Years) (2 of 2 - PCV) [facility] Start: 10-07-2013 Pneumococcal Vaccine : Pediatrics (0 to 5 Years) and At-Risk Patients (6 to 64 Years) (3 - PCV) Pneumococcal Vaccine: Pediatrics (0 to 5 Years) and At-Risk Patients (6 to 64 Years) (3 - PCV) [facility] Start: 07-23-2013 Pneumococcal vaccination Pneum ococcal Vaccine (2 - PCV) [facility] Start: 2012 Administration of he rpes zoster vaccine Zoster Vaccines (1 of 2) [facility] Start: 2012 Measurement of occul t blood in single stool specimen FIT [facility] Start: 2012 Screening for malign ant neoplasm of colon [facility] Start: 2012 Shingles (RZV) Vacci ne (1 of 2) Shingles (RZV) Vaccine (1 of 2) [facility] Start: 2012 Shingrix Vaccine (1 of 2) Simon grix Vaccine (1 of 2) [facility] Start: 2012 Zoster Vaccines (1 of 2) Zoste r Vaccines (1 of 2) [facility] Start: 2007 Cologuard (FIT-DNA) Cologuard (FIT-D NA) [facility] Start: 2007 Colonoscopy Colonoscopy [facility] Start: 2007 Colorectal Cancer Screening Colorectal Cancer Screening [facility] Start: [address] COLONOGRAPHY [facility] Start: 2007 Fecal Occult Blood Fecal Occult Bloo d [facility] Start: 2007 Screening for malign ant neoplasm of colon [facility] Start: 2007 SIGMOIDOSCOPY SIGMOIDOSCOPY [facility] Start: 1997 Lipid panel Cholesterol [facility] Start: 1992 Zoledronic acid therapy Alpha- 1 Antitrypsin Deficiency Screening [facility] Start: 1984 DTaP/Tdap/Td Vaccine s (1 - Tdap) DTaP/Tdap/Td Vaccines (1 - Tdap) [facility] Start: 1982 Hepatitis B Vaccine (1 of 3 - Risk Dialysis 4-dose series) Hepatitis B Vaccine (1 of 3 - Risk Dialysis 4-dose series) [facility] Start: 1981 Urine microalbumin profile DTaP,Tdap,Td Vaccine (1 - Tdap) [facility] Start: 1980 Annual PCP Team Final Expense Agent geo Disease Visit Annual PCP Team Chronic Disease Visit [facility] Start: 1980 BP Controlled (<130/80) BP Con trolled (<130/80) [facility] Start: 1980 Hepatitis C antibody , confirmatory test Hepatitis C Screening [facility] Start: 1980 [facility] Start: 1980 HIV Screening HIV Screening [facility] Start: 1980 HIV screening HIV Screening [facility] Start: 1980 Spirometry Spirometry [facility] Start: 1980 Tetanus + diphtheria + acellular pertussis vaccine (product) Tdap Booster [facility] Start: 1978 COVID-19 Vaccine (1 of 2) COVI D-19 Vaccine (1 of 2) [facility] Start: 1977 HIV screening [facility] Start: 1974 Adolescent depressio n screening assessment Depression Screening (PHQ9) [facility] Start: 1972 3 comp foot exam completed Diabetic Foot Exam [facility] Start: 1972 Diabetic foot examination [facility] Start: 1972 Meningococcal B Vacc ine: Consider Based On Risk (1 of 4 - Increased Risk) Meningococcal B Vaccine: Consider Based On Risk (1 of 4 - Increased Risk) [facility] Start: 1965 History and physical examination, annual for health maintenance Wellness Visit [facility] Start: 1964 Meningococcal Conjug ate Vaccine (1 - Risk 2-dose series) Meningococcal Conjugate Vaccine (1 - Risk 2-dose series) [facility] Start: 11-20-1963 Hib Vaccine (1 of 1 - Risk 1-dose series) Hib Vaccine (1 of 1 - Risk 1-dose series) [facility] Start: 1963 MMR Vaccines (1 of 1 - Standard series) MMR Vaccines (1 of 1 - Standard series) [facility] Start: 02-19-1963 COVID-19 Vaccine (#1) COVID-19 Vacci ne (#1) [facility] Start: 02-19-1963 Examination of skin Derm Melan fani Skin Check [facility] Start: 1962 Hemoglobin A1c measurement Diabetes: Hemoglobin A1C [facility] Start: 1962 HEPATITIS C SCREENING HEPATITIS C SC REENING [facility] Start: 1962 HIV screening HIV Screening [facility] Start: 1962 Lipid panel Lipid Panel [facility] Start: 1962 Medicare Annual Well ness Visit Medicare Annual Wellness Visit (AWV) [facility] Start: 1962 Prostate specific an tigen measurement PSA Level [facility] Start: 1962 [facility]: 1962 Screening for malign ant neoplasm of colon [facility] Start: 1962 Tetanus vaccination [facility] End: 03-06-2019 RITA [facility] End: 03-07-2019 Anti-DNA Double-Stranded Antibody Anti-DNA Double-Stranded Antibody Routine Corneal ulcer, unspecified laterality 1 Occurrences starting 03/06/2018 until 03/07/2019 [facility] End: 03-07-2019 Anti-Neutrophilic Cytoplasmic Antibody Anti-Neutrophilic Cytoplasmic Antibody Routine Corneal ulcer, unspecified laterality 1 Occurrences starting 03/06/2018 until 03/07/2019 [facility] End: 03-07-2019 C3 Complement C3 Complement Routine Corneal ulcer, unspecified laterality 1 Occurrences starting 03/06/2018 until 03/07/2019 [facility] End: 03-07-2019 C4 Complement C4 Complement Routine Corneal ulcer, unspecified laterality 1 Occurrences starting 03/06/2018 until 03/07/2019 [facility] End: 03-07-2019 CBC and Differential CBC and Differential Routine Corneal ulcer, unspecified laterality 1 Occurrences starting 03/06/2018 until 03/07/2019 [facility] End: 03-07-2019 Complement, Total Complement, Total Routine Corneal ulcer, unspecified laterality 1 Occurrences starting 03/06/2018 until 03/07/2019 [facility] End: 03-07-2019 Cyclic citrullinated peptide antibody CCP Antibody Routine Corneal ulcer, unspecified laterality 1 Occurrences starting 03/06/2018 until 03/07/2019 [facility] End: 03-07-2019 JONO Screen (SSA/B,SM,MAGISTERIAL DISTRICT JUDGE,SCL70,JO1) JONO Screen (SSA/B,SM,MAGISTERIAL DISTRICT JUDGE,SCL70,LAURIE 1) Routine Corneal ulcer, unspecified laterality 1 Occurrences starting 03/06/2018 until 03/07/2019 [facility] End: 03-07-2019 ESR Velocity (Bld) Sedimentation Rate Routine Corneal ulcer, unspecified laterality 1 Occurrences starting 03/06/2018 until 03/07/2019 [facility] End: 03-06-2019 Myeloperoxidase Antibody Myeloperoxidase Antibody Routine Corneal ulcer, unspecified laterality 1 Occurrences starting 03/06/2018 until 03/06/2019 [facility] Patient Education [facility] Work Phone: Patient referral [facility] Work Phone: End: 03-06-2019 Proteinase 3 Antibody Proteinase 3 Antibody Routine Corneal ulcer, unspecified laterality 1 Occurrences starting 03/06/2018 until 03/06/2019 [facility] End: 03-07-2019 Rheumatoid factor Rheumatoid factor Routine Corneal ulcer, unspecified laterality 1 Occurrences starting 03/06/2018 until 03/07/2019 [facility] Urinalysis Urinalysis Routi ne Corneal ulcer, unspecified laterality Ordered: 03/06/2018 [facility] Scales Clini c Scales Clini c Scales Clini c Scales Clini c Scales Clini c Scales Clini c NEGATED: Highlighted row has been ruled out! Planned Goals not documented [facility] Work Phone: Immunizations Immunization Date Immunization Notes Care Provider Emily flores 05-18-2017 influenza nasal, unspecified formulation Ultrasound Main Work Phone: [facility] Work Phone: 05-18-2017 influenza virus vaccine, split virus (incl. purified surface antigen) Ricarda Al Other [facility] Work Phone: 05-18-2017 influenza virus vaccine, unspecified formulation Peyton Arellano MD Work Phone: [facility] 10-07-2012 pneumococcal polysaccharide vaccine, 23 valent Ricarda Al Work Phone: [facility] 07-23-2012 pneumococcal polysaccharide vaccine, 23 valent Et3 [facility] 05-01-2003 pneumococcal polysaccharide vaccine, 23 valent Ricarda Al Work Phone: [facility] Work Phone: Comment on above: Series: 04-22-2003 pneumococcal polysaccharide vaccine, 23 valent Hadley Gonzalez [facility] Payers Date Payer Category Payer Medicare [id number] [address] [facility] D[facility] [id number] 2022-Present Nisa Armando [id number] [place] [address] [id number]. [id number] 2022 Medicare [id number] 2021 Self-pay [id number] 2020 Medicare [id number] 2018 Medicaid [id number]. 1.13.56.2.7 .[id number] 2015 Medicare [id number] 2015 Medicare MEDICARE MEDICAR E PART A & B [id number] 2015-Present [place] [id number]. [id number] 2015 Medicare HUMANA MANAGED Sy [employer]ER [employer] ADVANTAGE CHOICE PPO [id number] 2015-Present [id number] 1.2.840.636196.1.13.385.2. 7.3.103183.315 2015 Private Health Insurance [id number] 1962 Unknown [id number] 2.16.840.1.812209.3.579.2. 903 1962 Unknown [id number] 2.16.840.1.436594.3.579.2. 903 1962 Unknown [id number] 2.16.840.1.170590.3.579.2. 903 1962 Unknown [id number] 2.16.840.1.691684.3.579.2. 732 1962 Unknown [id number] 2.16.840.1.987353.3.579.2. 903 1962 Unknown [id number] 2.16.840.1.106695.3.579.2. 593 1962 Unknown [id number] 2.16.840.1.082734.3.579.2. 593 1962 Unknown [id number] 2.16.840.1.038699.3.579.2. 593 1962 Unknown [id number] 2.16.840.1.333137.3.579.2. 593 1962 Unknown [id number] 2.16.840.1.547775.3.579.2. 593 1962 Unknown [id number] 2.16.840.1.391382.3.579.2. 593 1962 Unknown [id number] 2.16.840.1.821228.3.579.2. 356 1962 Unknown [id number] 2.16.840.1.817300.3.579.2. 356 1962 Unknown [id number] 2.16.840.1.319799.3.579.2. 356 1962 Unknown [id number] 2.16.840.1.270638.3.579.2. 356 1962 Unknown [id number] 2.16.840.1.250648.3.579.2. 356 1962 Unknown [id number] 2.16.840.1.605455.3.579.2. 356 1962 Unknown [id number] 2.16.840.1.650496.3.579.2. 356 1962 Unknown [id number] 2.16.840.1.281612.3.579.2. 356 1962 Unknown [id number] 2.16.840.1.932037.3.579.2. 356 1962 Unknown [id number] 2.16.840.1.088141.3.579.2. 356 1962 Unknown [id number] 2.16.840.1.407290.3.579.2. 356 1962 Unknown [id number] 2.16.840.1.985238.3.579.2. 356 1962 Unknown [id number] 2.16.840.1.002486.3.579.2. 356 1962 Unknown [id number] 2.16.840.1.433727.3.579.2. 1259 1962 Unknown [id number] 2.16.840.1.250239.3.579.2. 1244 1962 Unknown [id number] 2.16.840.1.124618.3.579.2. 727 1962 Unknown [id number] 2.16.840.1.084269.3.579.2. 727 1962 Unknown [id number] 2.16.840.1.455337.3.579.2. 727 1962 Unknown [id number] 2.16.840.1.419760.3.579.2. 72 1962 Unknown [id number] 2.16.840.1.342677.3.579.2. 1962 Unknown [id number] 2.16.840.1.650800.3.579.2. 1962 Unknown [id number] 2.16.840.1.048944.3.579.2. 1962 Unknown [id number] 2.16.840.1.424197.3.579.2. 1962 Unknown [id number] 2.16.840.1.442315.3.579.2. 1962 Unknown [id number] 2.840.1.739020.3.579.2. 1959 Medicaid [id number] 2.840.1.642754. 1959 Medicare [id number] 2.16.840.1.243928. 1959 Medicare [id number] Medicaid [employer] [id number] [address] Health Insurance [facility] [id number] Unknown Unknown [id number] 2.16840.1.993768.3.579.2. 531 Unknown [id number] 2.16840.1.326796.3.579.2. 531 Unknown [id number] 2.16.840.1.280182.3.579.2. 531 Unknown [id number] 2.16.840.1.435016.3.579.2. 531 Unknown [id number] 2.16.840.1.315728.3.579.2. 531 Unknown [id number] 2.16.840.1.439447.3.579.2. 531 Unknown [id number] 2.16840.1.937764.3.579.2. 531 Unknown [id number] 2.16.840.1.602785.3.579.2. 531 Unknown [id number] 2.16.840.1.127783.3.579.2. 531 Unknown [id number] 2.16.840.1.239312.3.579.2. 531 Unknown Silverio NUÑEZ/MARCELA [id number] Social History Date Type Detail Facility Start: 07-23-1974 End: 04-10-2023 Tobacco smoking status INIS Current every day smoker [facility] Start: 03-06-2018 End: 08-31-2023 Cigarettes smoked current (pack per day) - Reported [facility] Comment on above: 2-3 times month; occasional soda; QUIT SMOKING 022; pack 1 every four da ys.; Start: 1960 Sex Assigned At Not on file [facility] Start: 03-06-2018 End: 12-31-2023 Tobacco use and exposure Never used [facility] Start: 03-06-2018 End: 12-11-2023 Alcohol intake Current drinker of alcohol (finding) [facility] Start: 03-06-2018 Alcohol Comment occassionaly [facility] Start: 05-14-2020 End: 08-31-2023 Sex Assigned At [email or web address] Other Start: 02-08-2022 End: 08-26-2023 Tobacco smoking status [facility] Ex-smoker (finding) [facility] Start: 1960 Sex Assigned At Male [facility] Tobacco [facility] Comment on above: denies Tobacco smoking status No Smoking Status Entered [facility] Start: 08-25-2020 End: 12-31-2023 Tobacco smoking status [facility] Occasional tobacco smoker [facility] Start: 07-23-1974 History of tobacco use Cigarette Smoker [facility] Start: 08-25-2020 Tobacco Comment pt smokes 3-4 cigarettes a day [facility] How often to you have a drink containing alcohol? 2-3 time sa week [facility] How many standard drinks containing alcohol do you have on a typical day? 3 or 4 [facility] How often do you have 6 or more drinks on 1 occasion? Never [facility] National Score (1-100), lower number is lower risk 64 [facility] Start: 04-10-2023 Tobacco Comment 1 pack over 5 days [facility] Start: 03-05-2020 Alcohol [facility] History of tobacco use Current smoker [facility] Start: 08-26-2023 End: 12-31-2023 Alcohol intake Ex-drinker (finding) [facility] Start: 08-26-2023 Tobacco Comment Last smoked: 3 -[address] [facility] Start: 08-26-2023 Alcohol Comment Caffeine: 4 cups/day [facility] Start: 08-21-2023 End: 12-31-2023 Exposure to SARS-CoV-2 (event) Not sure [facility] NEGATED: Highlighted row - - [facility] Work Phone: Medical Equipment Procedure Code Equipment Code Equipment Origin al Text Equipment Identifier Dates Fluoroscopic guidance for insertion of tunnelled dialysis catheter Double-lumen haemodialysis catheter, implantable [id number] FDA Start: 04-21-2022 Creation or revision of arteriovenous fistula Synthetic vascular graft ()[id number] FDA Start: 01-16-2022 Unknown Unknown 03/20/17 Unknown Penis FDA Start: 03-20-2017 Comment on above: Unable to get info.P t does not have card or info. Sx performed at [facility], by Dr. Chavis. Hospital sent all records they have. Op report does not specify name of implant. Dr. Chavis no longer at [facility] [place], he is in [place]. Left message for Dr. Chavis. No return call.RAD will need to ok if pt returns03/20/17, took out implant and place new one in. Implants name not specified. Unknown Unknown 03/20/17 Unknown Penis FDA Start: 03-20-2017 Comment on above: Unable to get info.P t does not have card or info. Sx performed at [facility], by Dr. Chavis. Hospital sent all records they have. Op report does not specify name of implant. Dr. Chavis no longer at [facility] [place], he is in [place]. Left message for Dr. Chavis. No return call.RAD will need to ok if pt returns03/20/17, took out implant and place new one in. Implants name not specified. Unknown Unknown 03/20/17 Unknown Penis FDA Start: 03-20-2017 Comment on above: Unable to get info.P t does not have card or info. Sx performed at [facility], by Dr. Chavis. Hospital sent all records they have. Op report does not specify name of implant. Dr. Chavis no longer at [facility] [place], he is in [place]. Left message for Dr. Chavis. No return call.RAD will need to ok if pt returns03/20/17, took out implant and place new one in. Implants name not specified. Unknown Unknown 03/20/17 Unknown Penis FDA Start: 03-20-2017 Comment on above: Unable to get info.P t does not have card or info. Sx performed at [facility], by Dr. Chavis. Hospital sent all records they have. Op report does not specify name of implant. Dr. Chavis no longer at [facility] [place], he is in [place]. Left message for Dr. Chavis. No return call.RAD will need to ok if pt returns03/20/17, took out implant and place new one in. Implants name not specified. Unknown Unknown 03/20/17 Unknown Penis FDA Start: 03-20-2017 Comment on above: Unable to get info.P t does not have card or info. Sx performed at [facility], by Dr. Chavis. Hospital sent all records they have. Op report does not specify name of implant. Dr. Chavis no longer at [facility] [place], he is in [place]. Left message for Dr. Chavis. No return call.RAD will need to ok if pt returns03/20/17, took out implant and place new one in. Implants name not specified. Unknown Unknown 03/20/17 Unknown Penis FDA Start: 03-20-2017 Comment on above: Unable to get info.P t does not have card or info. Sx performed at [facility], by Dr. Chavis. Hospital sent all records they have. Op report does not specify name of implant. Dr. Chavis no longer at [facility] [place], he is in [place]. Left message for Dr. Chavis. No return call.RAD will need to ok if pt returns03/20/17, took out implant and place new one in. Implants name not specified. Unknown Unknown 03/20/17 Unknown Penis FDA Start: 03-20-2017 Comment on above: Unable to get info.P t does not have card or info. Sx performed at [facility], by Dr. Chavis. Hospital sent all records they have. Op report does not specify name of implant. Dr. Chavis no longer at [facility] [place], he is in [place]. Left message for Dr. Chavis. No return call.RAD will need to ok if pt returns03/20/17, took out implant and place new one in. Implants name not specified. Unknown Unknown 03/20/17 Unknown Penis FDA Start: 03-20-2017 Comment on above: Unable to get info.P t does not have card or info. Sx performed at [facility], by Dr. Chavis. [facility] sent all records they have. Op report does not specify name of implant. Dr. Chavis no longer at [facility] [place], he is in [place]. Left message for Dr. Chavis. No return call.RAD will need to ok if pt returns03/20/17, took out implant and place new one in. Implants name not specified. Dou-Go-T-Kind Implant - [id number] Start: 07-10-2013 Comment on above: Description: AMS spe ctra concealable penile prosthesis D 14mm L 16cm C2622 AMS SPECTRA PENILE PROSTH Klw-Tq-W-Kind Implant - [id number] Start: 02-03-2014 Comment on above: Description: Spectra 9.5mm rear tip ice maker kit (0.5cm, 1cm, 1.5cm, 2cm, 3cm) Lens Iol 0d +12 Shukri Uv Abs - [id number] Start: 03-08-2020 Comment on above: Description: -1.19 Pros Penl 700cx 6cm Rear Tip - [id number] Start: 07-10-2013 Unknown Unknown 03/20/17 Unknown Penis FDA Start: 03-20-2017 Comment on above: Unable to get info.P t does not have card or info. Sx performed at [facility], by Dr. Chavis. Hospital sent all records they have. Op report does not specify name of implant. Dr. Chavis no longer at [facility] [place], he is in [place]. Left message for Dr. Chavis. No return call.RAD will need to ok if pt returns03/20/17, took out implant and place new one in. Implants name not specified. Unknown Unknown 03/20/17 Unknown Penis FDA Start: 03-20-2017 Comment on above: Unable to get info.P t does not have card or info. Sx performed at [facility], by Dr. Chavis. Hospital sent all records they have. Op report does not specify name of implant. Dr. Chavis no longer at [facility] [place], he is in [place]. Left message for Dr. Chavis. No return call.RAD will need to ok if pt returns03/20/17, took out implant and place new one in. Implants name not specified. Unknown Unknown 03/20/17 Unknown Penis FDA Start: 03-20-2017 Comment on above: Unable to get info.P t does not have card or info. Sx performed at [facility], by Dr. Chavis. Hospital sent all records they have. Op report does not specify name of implant. Dr. Chavis no longer at [facility] [place], he is in [place]. Left message for Dr. Chavis. No return call.RAD will need to ok if pt returns03/20/17, took out implant and place new one in. Implants name not specified. Prosthesis, Peni le, Spectra Cylinder, 9.5mm X 12cm Case [id number] Start: 03-20-2017 Comment on above: Description: Convert ed from [facility]. Please see archived information for full log information. Prosthesis Kit, 11mm Tactra, Malleable Case [id number] Start: 09-26-2019 Comment on above: Description: Convert ed from [facility]. Please see archived information for full log information. Retraction Mica Mayorga Deep Scrotal Case [id number] Start: 01-20-2021 Comment on above: Description: Convert ed from [facility]. Please see archived information for full log information. Prosthesis Kit, 9.5mm Tactra, Malleable Case [id number] Start: 01-20-2021 Comment on above: Description: Convert ed from [facility]. Please see archived information for full log information. Generic Supply 0 1 Case [id number] Start: 03-20-2017 Comment on above: Description: Convert ed from [facility]. Please see archived information for full log information. Additional Information:9.5mm rte kit per bill only jdrr 03/22/2017 1528pm Unknown Unknown 03/20/17 Unknown Penis FDA Start: 03-20-2017 Comment on above: Unable to get info.P t does not have card or info. Sx performed at [facility], by Dr. Chavis. Hospital sent all records they have. Op report does not specify name of implant. Dr. Chavis no longer at [facility] [place], he is in [place]. Left message for Dr. Chavis. No return call.RAD will need to ok if pt returns03/20/17, took out implant and place new one in. Implants name not specified. Zbi-Ty-T-Kind Implant - [id number] Start: 02-03-2014 Comment on above: Description: AMS spe ctra concealable penile prosthesis C2622 SPECTRA CONCEALABLE PENILE PROSTHESIS Unknown Unknown 03/20/17 Unknown Penis FDA Start: 03-20-2017 Comment on above: Unable to get info.P t does not have card or info. Sx performed at [facility], by Dr. Chavis. Hospital sent all records they have. Op report does not specify name of implant. Dr. Chavis no longer at [facility] [place], he is in [place]. Left message for Dr. Chavis. No return call.RAD will need to ok if pt returns03/20/17, took out implant and place new one in. Implants name not specified. [id number] [facility] - [id number] Start: 09-12-2023 Unknown Unknown 03/20/17 Unknown Penis FDA Start: 03-20-2017 Comment on above: Unable to get info.P t does not have card or info. Sx performed at [facility], by Dr. Chavis. Hospital sent all records they have. Op report does not specify name of implant. Dr. Chavis no longer at [facility] [place], he is in [place]. Left message for Dr. Chavis. No return call.RAD will need to ok if pt returns03/20/17, took out implant and place new one in. Implants name not specified. Unknown Unknown 03/20/17 Unknown Penis FDA Start: 03-20-2017 Comment on above: Unable to get info.P t does not have card or info. Sx performed at [facility], by Dr. Chavis. Hospital sent all records they have. Op report does not specify name of implant. Dr. Chavis no longer at [facility] [place], he is in [place]. Left message for Dr. Chavis. No return call.RAD will need to ok if pt returns03/20/17, took out implant and place new one in. Implants name not specified. Unknown Unknown 03/20/17 Unknown Penis FDA Start: 03-20-2017 Comment on above: Unable to get info.P t does not have card or info. Sx performed at [facility], by Dr. Chavis. Hospital sent all records they have. Op report does not specify name of implant. Dr. Chavis no longer at [facility] [place], he is in [place]. Left message for Dr. Chavis. No return call.RAD will need to ok if pt returns03/20/17, took out implant and place new one in. Implants name not specified. Unknown Unknown 03/20/17 Unknown Penis FDA Start: 03-20-2017 Comment on above: Unable to get info.P t does not have card or info. Sx performed at [facility], by Dr. Chavis. Hospital sent all records they have. Op report does not specify name of implant. Dr. Chavis no longer at [facility] [place], he is in [place]. Left message for Dr. Chavis. No return call.RAD will need to ok if pt returns03/20/17, took out implant and place new one in. Implants name not specified. Goals Date Patient Goal Desired Activity /State Functional Status Date Assessment Result Facility 10-18-2023 Functional Status N/A [facility] 10-18-2023 Functional Status [facility] 10-05-2023 Functional Status N/A [facility] 09-08-2023 Functional Status No [facility] 04-20-2023 Functional Status N/A [facility] 05-22-2022 Functional Status N/A [facility] 11-20-2021 Functional status Patient at Baseline [facility] Work Phone: NEGATED: Highlighted row Functional performance Functional status health issues are not documented Disease [facility] Work Phone: Mental Status Date Assessment Result Facility 11-20-2021 Cognitive function Cognitive Sta tus Patient at Baseline [facility] Work Phone: NEGATED: Highlighted row Cognitive function [Interpretation] Cognitive status health issues are not documented Disease [facility] Work Phone: Clinical Notes 03-20-2017 to 03-17-2024 Gunner Baez MD - 12/31/2023 9:50 AM EDTPatient InstructionsKathrine Fulton MD - 12/11/2023 11:40 AM EDTTelephone Encounter - Khushi Mc - 11/15/2023 10:19 AM EDT Note Date & Type Note Facility 03-17-2024 Evaluation + Plan note Diagnostic Tests [facility]ending[facility] Intact 03/17/24 [facility] 12-31-2023 History of Present illness Narrative Subjective Hien Johnson is a 63 y.o. male Chief Complaint Follow-up; Shortness of Breath HPI Patient is here for follow-up continue management for history of coronary artery disease, ischemic cardiomyopathy hyperlipidemia and hypertension. Since last time I saw him he report worsening shortness of breath. He has lost close to 20 pounds. He was briefly on dialysis but now he is being treated conservatively. His last creatinine 3.1 today in the office he describe class III shortness of breath. He does have +2 edema. Scheduled to have lab work done in the near future. For reason unclear to me the patient has not been taking his Coreg. He reported he ran out and did not renew it. Assessment 1. Symptoms of class III shortness of breath due to ischemic cardiomyopathy with total occlusion of the mid LAD which is chronic and moderate disease of the RCA based on previous cardiac catheterization previously his symptoms appears to be worsened. This is unclear to me whether it is related to progression of his coronary artery disease versus volume overload and renal disease. His creatinine is 3 he is at very high risk for contrast-induced nephropathy 2. Ischemic cardiomyopathy with LVEF around 30 to 35% compensated functional class II 3. Stage IV chronic kidney disease 1 on hemodialysis briefly but now he has been treated conservatively 4. History of DVT on Coumadin therapy 5. Obesity with recent 20 pound weight loss 6. History of hyperkalemia due to [place] 7. Hyperlipidemia on atorvastatin 8. Recent hospitalization for pneumonia 9. Advanced kidney disease was on dialysis for almost a year but now he said he had some kidney recovery Plan 1. Advised the patient to resume Coreg 3.125 twice daily 2. the patient has been seen closely by his counseling psychologist who has been monitoring his renal function and diuretics 3. Continue efforts to lose weight and exercise 4. Patient was counseled regarding smoking cessation 5. I discussed with patient prophylactic AICD multiple times in the past but the patient declined 6. We discussed invasive evaluation concerning worsening his symptoms. But I told him he will have very likelihood of developing renal failure requiring hemodialysis the patient is reluctant. I told the patient if symptoms does not improve in the near future he should go to the hospital where cardiology nephrology and primary care could make a shared decision to address his shortness of breath Review of Systems Respiratory: Positive for shortness of breath. All other systems reviewed and are negative. Vitals: 12/31/23 1021 BP: 138/80 BP Location: Right arm Patient Position: Sitting Pulse: 88 Weight: 107 kg (234 lb 12.8 oz) Height: 1.829 m (6') Objective Physical Exam Constitutional: Appearance: Normal appearance. HENT: Nose: Nose normal. Neck: Vascular: No carotid bruit. Cardiovascular: Rate and Rhythm: Normal rate. Pulses: Normal pulses. Heart sounds: Normal heart sounds. Pulmonary: Effort: Pulmonary effort is normal. Abdominal: General: Bowel sounds are normal. Palpations: Abdomen is soft. Musculoskeletal: General: Normal range of motion. Cervical back: Normal range of motion. Right lower le+ Pitting Edema present. Left lower le+ Pitting Edema present. Skin: General: Skin is warm and dry. Neurological: General: No focal deficit present. Mental Status: He is alert. Psychiatric: Mood and Affect: Mood normal. Behavior: Behavior normal. Thought Content: Thought content normal. Judgment: Judgment normal. Allergies [place] inhibitors, Fentanyl, and Piperacillin-tazobactam Current Medications Current Outpatient Medications: albuterol 2.5 mg /3 mL (0.083 %) nebulizer solution, USE 1 VIAL IN NEBULIZER 4 TIMES DAILY, Disp: , Rfl: albuterol 90 mcg/actuation inhaler, Inhale 2 puffs every 4 hours if needed for shortness of breath., Disp: , Rfl: Breztri Aerosphere 160-9-4.8 mcg/actuation HFA aerosol inhaler, INHALE 2 PUFFS TWICE DAILY RINSE AFTER USING, Disp: , Rfl: bumetanide (Bumex) 2 mg tablet, Take 1 tablet (2 mg) by mouth 2 times a day., Disp: , Rfl: cholecalciferol (Vitamin D-3) 125 MCG (5000 UT) capsule, Take 1 capsule (125 mcg) by mouth once daily., Disp: , Rfl: famotidine (Pepcid) 20 mg tablet, Oral for 30 Days, Disp: , Rfl: ferrous gluconate 324 (38 Fe) mg tablet, Take 1 tablet (324 mg) by mouth once daily., Disp: , Rfl: fluticasone propion-salmeteroL (AirDuo RespiClick) 113-14 mcg/actuation inhaler, Inhale every 12 hours., Disp: , Rfl: hydrALAZINE (Apresoline) 10 mg tablet, Take 1 tablet (10 mg) by mouth 3 times a day., Disp: , Rfl: isosorbide dinitrate (Isordil) 10 mg tablet, Take 1 tablet (10 mg) by mouth 3 times a day., Disp: 270 tablet, Rfl: 3 levalbuterol (Xopenex) 45 mcg/actuation inhaler, Inhale every 4 hours., Disp: , Rfl: omega-3 fatty acids (FISH OIL CONCENTRATE ORAL), Take by mouth., Disp: , Rfl: pantoprazole (ProtoNix) 20 mg EC tablet, Take by mouth., Disp: , Rfl: sodium zirconium cyclosilicate (Lokelma) 10 gram packet, Take 10 g by mouth once daily., Disp: , Rfl: warfarin (Coumadin) 2.5 mg tablet, Take 1 tablet (2.5 mg) by mouth once daily at bedtime. Managed by [facility], Disp: , Rfl: Assessment/Plan 1. Angina, class II (CMS-HCC) 2. Dilated cardiomyopathy (Multi) Follow Up In Cardiology 3. Primary hypertension Follow Up In Cardiology 4. Two-vessel coronary artery disease Follow Up In Cardiology 5. Abnormal electrocardiogram 6. Mixed hyperlipidemia 7. Hypertensive heart and chronic kidney disease without heart failure, with stage 1 through stage 4 chronic kidney disease, or unspecified chronic kidney disease 8. Ischemic cardiomyopathy 9. Chronic deep vein thrombosis (DVT) of proximal vein of lower extremity, unspecified laterality (Multi) 10. BMI 31.0-31.9,adult 11. Current every day smoker Scribe Attestation By signing my name below, I, Yaneth Amezquita LPN, , Scribe attest that this documentation has been prepared under the direction and in the presence of Gunner Baez MD. Provider Attestation - Scribe documentation All medical record entries made by the Scribe were at my direction and personally dictated by me. I have reviewed the chart and agree that the record accurately reflects my personal performance of the history, physical exam, discussion and plan. documented in this encounter [facility] Work Phone: 12-31-2023 Instructions Yaneth Franklin LPN - 12/31/2023 9:50 AM EDT Please bring all medicines, vitamins, and herbal supplements with you when you come to the office. Prescriptions will not be filled unless you are compliant with your follow up appointments or have a follow up appointment scheduled as per instruction of your physician. Refills should be requested at the time of your visit. BMI was above normal measurement. Current weight: 107 kg (234 lb 12.8 oz) Weight change since last visit (-) denotes wt loss -21.2 lbs Weight loss needed to achieve BMI 25: 50.9 Lbs Weight loss needed to achieve BMI 30: 14.1 Lbs Provided instructions on dietary changes. The following attachments cannot be sent through Care Everywhere.Mediterranean Diet (Surinamese)documented in this encounter [facility] Work Phone: 12-11-2023 Note HNO ID: [id number] Author: KATHRINE CAIN MD Service: ? Author Type: Physician Type: Progress Notes Filed: 12/11/2023 12:02 Note Text: Stable vision. LTFU since 01/2020. 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 Durham, recently seen by Dr. 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, with long-term current use of insulin (HCC) Hemoglobin A1C (%) Date Value 03/02/2015 7.0 Right eye: Oct without significant IRF Observe Left eye Macular thickening with trace IRF secondary to ERM See below Pseudophakia, both eyes - stable, observe Epiretinal membrane, left eye more than right eye OCT with worsening ERM left eye more than right eye Patient reports worsening vision over the past few years but denies metamorphopsia Unclear if visually significant Also patient with corneal thinning and scleral thinning which significantly increase risks of surgery Would recommend observation I have confirmed and edited as necessary the relevant ophthalmic history, ROS, and the neuro exam findings as obtained by others. I have seen and examined Hien Johnson. I have discussed the case and the management of this patient's care with the Resident/Fellow, if applicable. I also have reviewed and agree with the assessment and plan as stated above and agree with all of its relevant components. Kathrine Cain MD [facility] 12-11-2023 Note Date of Procedure 12/11/2023. 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 Interpretation Right Eye Findings include Intraretinal fluid. Left Eye Findings include Intraretinal fluid, Epiretinal membrane. Interval Change Right Eye Worse. Left Eye Worse. ZEISS 12-11-2023 History of Present illness Narrative Stable vision. LTFU since 01/2020. 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 Durham, recently seen by Dr. 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, with long-term current use of insulin (HCC) Hemoglobin A1C (%) Date Value 03/02/2015 7.0 Right eye: Oct without significant IRF Observe Left eye Macular thickening with trace IRF secondary to ERM See below Pseudophakia, both eyes - stable, observe Epiretinal membrane, left eye more than right eye OCT with worsening ERM left eye more than right eye Patient reports worsening vision over the past few years but denies metamorphopsia Unclear if visually significant Also patient with corneal thinning and scleral thinning which significantly increase risks of surgery Would recommend observation I have confirmed and edited as necessary the relevant ophthalmic history, ROS, and the neuro exam findings as obtained by others. I have seen and examined Hien Johnson. I have discussed the case and the management of this patient's care with the Resident/Fellow, if applicable. I also have reviewed and agree with the assessment and plan as stated above and agree with all of its relevant components. Kathrine Cain MD documented in this encounter [facility] 12-03-2023 Evaluation + Plan note [facility] 11-15-2023 Miscellaneous Notes Images from the original note were not included. Contacted Kalpana to verify the fax number for the last couple faxes did not go through. Kalpana gave me the correct number and faxed the letter to her office. Confirmation has been received and the original has been mailed to the patient. No other questions or concerns at this time. You See, MD Patrice 17 hours ago (4:45 PM) DJ Yes this was done, however, the number given to fax is not going through. I am trying to contact Kalpana again to see if there is another number to fax the letter to. See, MD Patrice You 23 hours ago (10:58 AM) Was this already addressed by the letter in the chart? Patient is calling stating he needs a letter when and why he was out of work, when he is able to return, and whether or not there are any restrictions. Patient needs the letter to be sent to the following fax number, attn: Kalpana, . Patient can be contacted at the following number, . 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 I have seen and examined Hien Johnson. I have discussed the case and the management of this patient's care with the Resident/Fellow, if applicable. I also have reviewed and agree with the assessment and plan as stated above and agree with all of its relevant components. Patrice Castañeda MD documented in this encounter [facility] 11-15-2023 Telephone encounter Note Images from the original note were not included. Contacted Kalpana to verify the fax number for the last couple faxes did not go through. Kalpana gave me the correct number and faxed the letter to her office. Confirmation has been received and the original has been mailed to the patient. No other questions or concerns at this time. You SeePatrice MD 17 hours ago (4:45 PM) DJ Yes this was done, however, the number given to fax is not going through. I am trying to contact Kalpana again to see if there is another number to fax the letter to. SeePatrice MD You 23 hours ago (10:58 AM) Was this already addressed by the letter in the chart? [facility] 11-12-2023 Telephone encounter Note Patient is calling stating he needs a letter when and why he was out of work, when he is able to return, and whether or not there are any restrictions. Patient needs the letter to be sent to the following fax number, attn: Kalpana [phone]. Patient can be contacted at the following number, . 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 I have seen and examined Hien Johnson. I have discussed the case and the management of this patient's care with the Resident/Fellow, if applicable. I also have reviewed and agree with the assessment and plan as stated above and agree with all of its relevant components. Patrice Castañeda MD [facility] 10-22-2023 Note HNO ID: [id number] Author: PATRICE CASTAÑEDA MD Service: ? 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 I have seen and examined Hien Johnson. I have discussed the case and the management of this patient's care with the Resident/Fellow, if applicable. I also have reviewed and agree with the assessment and plan as stated above and agree with all of its relevant components. Patrice Castañeda MD 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 I have seen and examined Hien Cardoza Jeison. I have discussed the case and the management of this patient's care with the Resident/Fellow, if applicable. I also have reviewed and agree with the assessment and plan as stated above and agree with all of its relevant components. Patrice Castañeda MD documented in this encounter [facility] 10-19-2023 Evaluation + Plan note Extrac anish from: Title:Discharge Note Author:EMILY RIVERA, Ankush Pickett ate:10/19/23 Stable Discharged to - Home with family residential Discharge Diet(s): Renal, Low Sodium- 2000 mg (10/19/23 10:09:00) Prescriptions albuterol 90 mcg/inh inhalation powder, 2 puff(s), Inhalation, q4hr, PRN, 3 refills Pepcid 20 mg Tab, 20 mg= 1 tab(s), Oral, BID Protonix 20 mg Tab-DR, 20 mg= 1 tab(s), Oral, Daily Home atorvastatin 20 mg Tab, 20 mg= 1 tab(s), Oral, Daily bumetanide 2 mg Tab, 2 mg= 1 tab(s), Oral, BID carvedilol 6.25 mg Tab, 6.25 mg= 1 tab(s), Oral, BID Coumadin 5 mg Tab, 2.5 mg= 0.5 tab(s), Oral, MonWedFri hydrALAZINE 10 mg Tab, 10 mg= 1 tab(s), Oral, TID isosorbide dinitrate 10 mg Tab, 10 mg= 1 tab(s), Oral, TID prednisoLONE acetate ophthalmic, BID With When Contact Information [place] Within 5 to 7 days [address] [id number] [facility] (1) Additional Instructions: Call for followup appointment Nonspecific Chest Pain, Adult, [id number] Extracted from: Title:SOAP Note: Simple Author:Ayad Hickman MD, am P Date:10/19/23 Impression and Plan NON CARDIAC CHEST PAIN NO SIGN OF INFLAMMATION RESPONDED TO GI RX SUSPECT THIS WAS GERD OR ESOPHAGEAL SPASM OK TO DISCHARGE NO CHANGE IN CV RX ADD PEPCID OR PROTONIX TO DISCHARGE MEDS Extracted from: Title:SOAP Note: Simple Author:Ayad Hickman MD, am P Date:10/18/23 Impression and Plan CONSULT DICTATED NON CARDIAC CHEST PAIN LASTED OVER 48 HOURS NO EKG CHANGES NORMAL TROPONIN DESPITE STAGE 4 RENAL FAILURE RULES OUT ISCHEMIA SUSPECT INFLAMMATION OR GI REC: SED RATE, CRP GREEN FROG PPI/H2 Extracted from: Title:Admission H & P Author:Cece COUCH MDfo Date:10/18/23 63-year-old male with histor y of chronic kidney disease stage IV, hypertension, coronary artery disease, history of cerebrovascular accident, obesity, wide- complex tachycardia refusing AICD, chronic systolic congestive heart failure, cigarette smoker presented with complaints of chest pain associated with shortness of breath and is being admitted with chest pain to rule out acute coronary syndrome. 1. Chest pain (R07.9: Chest pain, unspecified) Chest pain likely noncardiac. Admit to regular medical floor to rule out acute coronary syndrome. Cardiology consulted. Chest x-ray shows no acute pathology. EKG is nonischemic. Started patient on as needed pain medications. 2. CKD (chronic kidney disease), stage IV (N18.4: Chronic kidney disease, stage 4 (severe)) Secondary to hypertensive nephropathy. At baseline. Continue on home medications. 3. Coronary artery disease (I25.10: Atherosclerotic heart disease of [place] coronary artery without angina pectoris) Historical. Stable. Continue on Coreg and Lipitor. 4. History of DVT in adulthood (Z86.718: Personal history of other venous thrombosis and embolism) Chronic DVT of the leg. Continue on Coumadin. 5. Hyperlipidemia (E78.5: Hyperlipidemia, unspecified) On Lipitor. 6. Hypertension (I10: Essential (primary) hypertension) Blood pressure uncontrolled and contributing to above with chest pain. Started patient on IV hydralazine as needed. Continue on Bumex, Coreg, isosorbide and hydralazine. 7. Obesity (E66.9: Obesity, unspecified) Recommend therapeutic lifestyle modification changes. 8. Smoker (F17.200: Nicotine dependence, unspecified, uncomplicated) Nicotine. 9. History of CVA in adulthood (Z86.73: Personal history of transient ischemic attack (TIA), and cerebral infarction without residual deficits) On Coumadin and Lipitor. 10. On deep vein thrombosis (DVT) prophylaxis (Z79.899: Other skilled nursing (current) drug therapy) Coumadin. Disposition: The patient will be admitted under observation status with anticipation of staying less than 2 midnights for the treatment of above chest pain. I discussed the diagnosis and plan of care with the patient at the bedside. Moderate level of MDM based on addressing above issues. This documentation was transcribed using voice recognition software. Several attempts were made to ensure accuracy. However inadvertent computerized music manager errors may be present. Ankush Couch. Hospitalist. Orders: acetaminophen, 650 mg = 2 tab(s), Tab, Oral, q6hr PRN Pain, Routine, Start date 10/18/23 9:53:00 EDT, 10/18/23 9:53:00 EDT Al hydroxide/Mg hydroxide/simethicone, 30 mL, Susp-Oral, Oral, q6hr PRN Indigestion, Routine, Start date 10/18/23 9:53:00 EDT atorvastatin, 20 mg = 1 tab(s), Tab, Oral, Daily, Routine, Start date 10/19/23 9:00:00 EDT, 10/18/23 10:24:00 EDT bumetanide, 2 mg = 2 tab(s), Tab, Oral, BID, Routine, Start date 10/18/23 17:00:00 EDT, 10/18/23 10:24:00 EDT bumetanide, 2 mg = 2 tab(s), Tab, Oral, Once, Stop date 10/18/23 12:00:00 EDT, Routine, Start date 10/18/23 12:00:00 EDT, 10/18/23 11:51:00 EDT carvedilol, 6.25 mg = 1 tab(s), Tab, Oral, BID, Routine, Start date 10/18/23 21:00:00 EDT, 10/18/23 10:24:00 EDT carvedilol, 6.25 mg = 1 tab(s), Tab, Oral, Once, Stop date 10/18/23 12:00:00 EDT, Routine, Start date 10/18/23 12:00:00 EDT, 10/18/23 11:50:00 EDT diphenhydrAMINE, 25 mg = 1 cap(s), Cap, Oral, q6hr PRN Itching, Routine, Start date 10/18/23 9:53:00 EDT, 10/18/23 9:53:00 EDT hydrALAZINE, 10 mg = 0.5 mL, Injection, IV Push, q6hr PRN Other (see comment), Routine, Start date 10/18/23 9:53:00 EDT, 10/18/23 9:53:00 EDT hydrALAZINE, 10 mg = 1 tab(s), Tab, Oral, TID, Routine, Start date 10/18/23 14:00:00 EDT, 10/18/23 10:24:00 EDT isosorbide dinitrate, 10 mg = 1 tab(s), Tab, Oral, TID, Routine, Start date 10/18/23 14:00:00 EDT, 10/18/23 10:24:00 EDT magnesium hydroxide, 30 mL, Susp-Oral, Oral, q6hr PRN Constipation, Routine, Start date 10/18/23 9:53:00 EDT morphine, 2 mg = 1 mL, Injection, IV Push, q6hr PRN Pain for 5 day(s), Stop date 10/23/23 10:19:00 EDT, Routine, Start date 10/18/23 10:20:00 EDT, 10/18/23 10:20:00 EDT nitroglycerin, 1 in, Ointment, Topical, q6hr, STAT, Start date 10/18/23 10:21:00 EDT ondansetron, 4 mg = 2 mL, Injection, IV Push, q6hr PRN Nausea, Routine, Start date 10/18/23 9:53:00 EDT, 10/18/23 9:53:00 EDT prednisoLONE ophthalmic, 1 drop(s), Susp-Opth, Eye-Both, BID, Routine, Start date 10/18/23 21:00:00 EDT warfarin, 2.5 mg = 1 tab(s), Tab, Oral, Once, Stop date 10/18/23 12:00:00 EDT, Start date 10/18/23 12:00:00 EDT warfarin, Pharmacy to dose, Tab, Oral, As Directed for 100 day(s), Stop date 01/26/24 11:12:00 EDT, Routine, Start date 10/18/23 11:13:00 EDT zolpidem, 5 mg = 1 tab(s), Tab, Oral, Bedtime PRN Sleep, Routine, Start date 10/18/23 9:53:00 EDT, 10/18/23 9:53:00 EDT Basic Metabolic Panel Cardiac Monitoring CBC w/ Auto Diff Consult to Cardiology ECG 12 Lead Adult Oxygen Protocol Place in Status PT Pulse Oximetry Regular Diet Resuscitation Status - Full Up ad Franchesca Vital Signs Weight Addendum by EMILY RIVERA, Cece edwards on October 18, 2023 12:10:11 EDT Cardiology consult reviewed by me. I appreciate and agree with recommendations. Patient was started on pantoprazole, famotidine and GI cocktail. Extracted from: Title:ED Note Author:Sergei Nelson DO Date :10/18/23 Chest pain (R07.9: Chest holly n, unspecified) Orders: aspirin, 162 mg = 2 tab(s), Tab-Chew, Oral, Once, Stop date 10/18/23 6:32:00 EDT, STAT, Start date 10/18/23 6:32:00 EDT, 10/18/23 6:32:00 EDT Basic Metabolic Panel CBC w/ Auto Diff ECG 12 Lead Adult ED Cardiac Monitoring Oxygen Saturation PT & PTT Saline Lock Insert Troponin 0 Hr. Troponin 3 Hr. Troponin 6 Hr. Troponin 9 Hr. XR Chest Single View Addendum by Corky Heredia DO on October 18, 2023 07:53:44 EDT Chest x-ray without acute findings. Troponin intermediate. EKG with some subtle changes from previous. Case discussed with the hospitalist who agrees to admit this patient to his service. Corky Heredia DO, [facility] Heart Score for Major Cardiac Event History: Example factors for history - pattern of chest pain, onset, duration, relation with exercise, stress or cold, localization, concomitant symptoms. reaction to sublingual nitrates, [] Highly suspicious +2 [x] Moderately suspicious +1 [] Slightly suspicious 0 EKG: [] Significant ST-Depression +2 [x] Non specific repolarization disturbance +1 [] Normal 0 Age: [] >= 65 +2 [x] 45-65 + 1 [] <45 0 Risk Factors: (HLD, HTN, DM, Cigarette Smoking, Pos Family Hx, Obesity) [x] >3 risk factors or hx of atherosclerotic disease + 2 [] 1-2 risk factors + 1 [] No risk factors known 0 Troponin: [] >= 3X normal + 2 [] 1-3X normal + 1 [x] <= Normal 0 [] 0-3 Points 0.9 - 1.7% risk of major adverse cardiac event in 6 weeks [x] 4-6 Points 12-16.6% risk of major adverse cardiac event in 6 weeks [] 7-10 Points 50-65% risk of major adverse cardiac event in 6 weeks [] 0-3 Points with 2 sets of negative cardiac markers <1% risk of major adverse cardiac event in 30 days. [facility]03[facility]2024 Hospital Discharge instructions Patient Education 10/19/2023 10:11:17 Nonspecific Chest Pain, Adult, [id number] Nonspecific Chest Pain Chest pain can be caused by many different conditions. Some causes of chest pain can be life-threatening. These will require treatment right away. Serious causes of chest pain include: Heart attack. A tear in the body's main blood vessel. Redness and swelling (inflammation) around your heart. Blood clot in your lungs. Other causes of chest pain may not be so serious. These include: Heartburn. Anxiety or stress. Damage to bones or muscles in your chest. Lung infections. Chest pain can feel like: Pain or discomfort in your chest. Crushing, pressure, aching, or squeezing pain. Burning or tingling. Dull or sharp pain that is worse when you move, cough, or take a deep breath. Pain or discomfort that is also felt in your back, neck, jaw, shoulder, or arm, or pain that spreads to any of these areas. It is hard to know whether your pain is caused by something that is serious or something that is not so serious. So it is important to see your doctor right away if you have chest pain. Follow these instructions at home: Medicines Take tsfy-dzr-woeggln and prescription medicines only as told by your doctor. If you were prescribed an antibiotic medicine, take it as told by your doctor. Do not stop taking the antibiotic even if you start to feel better. Lifestyle Rest as told by your doctor. Do not use any products that contain nicotine or tobacco, such as cigarettes, e- cigarettes, and chewing tobacco. If you need help quitting, ask your doctor. Do not drink alcohol. Make lifestyle changes as told by your doctor. These may include: ?Getting regular exercise. Ask your doctor what activities are safe for you. ?Eating a heart-healthy diet. A diet and nutrition teacher (dietitian) can help you to learn healthy eating options. ?Staying at a healthy weight. ?Treating diabetes or high blood pressure, if needed. ?Lowering your stress. Activities such as yoga and relaxation techniques can help. General instructions Pay attention to any changes in your symptoms. Tell your doctor about them or any new symptoms. Avoid any activities that cause chest pain. Keep all follow-up visits as told by your doctor. This is important. You may need more testing if your chest pain does not go away. Contact a doctor if: Your chest pain does not go away. You feel depressed. You have a fever. Get help right away if: Your chest pain is worse. You have a cough that gets worse, or you cough up blood. You have very bad (severe) pain in your belly (abdomen). You pass out (faint). You have either of these for no clear reason: ?Sudden chest discomfort. ?Sudden discomfort in your arms, back, neck, or jaw. You have shortness of breath at any time. You suddenly start to sweat, or your skin gets clammy. You feel sick to your stomach (nauseous). You throw up (vomit). You suddenly feel lightheaded or dizzy. You feel very weak or tired. Your heart starts to beat fast, or it feels like it is skipping beats. These symptoms may be an emergency. Do not wait to see if the symptoms will go away. Get medical help right away. Call your local emergency services (911 in the [place] Do not drive yourself to the hospital. Summary Chest pain can be caused by many different conditions. The cause may be serious and need treatment right away. If you have chest pain, see your doctor right away. Follow your doctor's instructions for taking medicines and making lifestyle changes. Keep all follow-up visits as told by your doctor. This includes visits for any further testing if your chest pain does not go away. Be sure to know the signs that show that your condition has become worse. Get help right away if you have these symptoms. This information is not intended to replace advice given to you by your health care provider. Make sure you discuss any questions you have with your health care provider. Document Revised: 09/22/2021 Document Reviewed: 09/22/2021 [employer] Patient Education 2022 [employer]. Follow Up Care 10/18/2023 06:18:09 With:RICARDA AL Address: [address] [place] [address] [place] [address]- Business (1) When:10/23/2023 11:00:00 [facility]03[facility]29[facility]2024 [facility]Result Comment: Electronically Signed By: EMILY RIVERA, [employer]\.br\Date and Time Signed: 10/19/23 10:26 [id number] [facility] Comment on above:Result Comment: Electronically Signed By: Ankush COUCH MD\.br\Date and Time Signed: 10/18/23 12:10 [id number] Evaluation + Plan noteExtracted from: Title:ED Note Author:Donald Pollard PA-C te:10/05/23 Corneal abrasion (S05.00XA: Injury of conjunctiva and corneal abrasion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 based on your history, symptoms, and a physical examination. Additional tests for CHF may include: EKG. Chest X-ray. Blood tests. Stress test. Ultrasound evaluation of the heart (echocardiogram). Evaluation by a heart doctor (jig builder helper). Test of the heart arteries to look for blockages (angiogram). Check of blood oxygen. TREATMENT: The focus of treatment is to relieve the symptoms of CHF. It may include medications such as: Beta blockers block the effects of adrenalin or stress hormones in order to slow the heart and relax blood vessels. They may help the heart work better and lower blood pressure. [place] inhibitors block the effects of a special blood protein called angiotension- converting enzyme ([place]). [place] may cause blood vessels to narrow so that it is harder for blood to flow. Blocking this effect relaxes the vessels so blood flows easier. The heart does not have to work as hard. These medicines are believed to reduce the incidence of heart attacks and strokes. Calcium channel blockers slow calcium passing into the cells of the heart and blood vessels. Blood vessels are more relaxed and there is more blood flow. They may be used with other treatments after a heart attack to reduce the chance of another. Diuretics are also known as water pills. They reduce the amount of sodium and water held in the body so the kidneys make more urine. This helps lower blood pressure and helps the heart pump better. With CHF, diuretics help prevent fluid in the lungs so breathing is easier. Statins lower the level of cholesterol in the blood by blocking an enzyme in the liver. Statins reduce the buildup of plaque on the puente of arteries in the body (atherosclerosis). Over time, plaque makes an artery narrower and may break off and cause a clot. A clot may result in a heart attack or stroke. Statins may be taken for a long time to help prevent this buildup of plaque. Nitrates help relax arteries of the heart and veins around the body. This lowers blood pressure andimproves blood flow to the heart so it gets more oxygen. The heart does not have to work as hard. It may include measures to correct conditions such as: High blood pressure. Diabetes. Atherosclerosis. Excessive alcohol intake. Smoking. It may include: Procedures to open blocked arteries, repair damaged heart valves, or remove some of the damaged heart muscle. A pacemaker to help the heart pump with less effort. HOME CARE INSTRUCTIONS: Activity Level -- Your physician will help you determine what type of exercise program may be helpful. It is important to maintain strength and increase it if possible. Pace your activities to avoid shortness of breath or chest pain. Rest for at least 1 hour before and after meals. Cardiac rehabilitation programs are available in some locations. Diet -- Eat a heart healthy diet, low in salt, saturated fat, and cholesterol. Ask for help with choices. Weight Monitoring When you get home, weigh yourself and record your weight. Then, weigh yourself daily, first thing in the morning, and record the weights. Any change of more than 2-4 pounds over a few days should be discussed with your physician. Your medications may need to be adjusted. Blood pressure monitoring should be done as often as directed. You can get a home blood pressure cuff at your [facility]. Record these values and bring them with you for your follow up physician visits. Notify your physician if you become dizzy or lightheaded upon standing up. If you are currently a smoker, it is time to quit. Nicotine makes your heart work harder and is oneof the leading causes of heart (cardiac) deaths. Do not use nicotine gum or patches before talking to your physician. Be sure to schedule a follow-up visit with your caregiver. Keep your appointments! SEEK IMMEDIATE MEDICAL CARE ---Call 911--IF: You have severe chest pain. Especially if the pain is crushing or pressure-like and spreads to the arms, back, neck, or jaw, or if you have sweating, are feeling sick to your stomach (nausea), or youare experiencing shortness of breath. THIS IS AN EMERGENCY. DO NOT wait to see if the pain will go away. Get medical help at once. Call for local emergency medical help. DO NOT drive yourself to the hospital. Your weight increases by 2-4 pounds or more within three days. You notice increasing shortness of breath that is unusual for you. This may happen during rest, sleep or with activity. You develop chest pain (angina) or pain that is unusual for you. You develop sweating or nausea that is unusual for you. You notice more swelling in your hands, feet, ankles or abdomen. You notice lasting (persistent) dizziness, blurred vision, headache, or unsteadiness. You begin to cough up bloody mucus (sputum). You are unable to sleep because it is hard to breathe. You begin to feel a jumping or fluttering sensation (palpitations) in the chest that is unusual foryou. IMPORTANT: Make a list of every medicine, vitamin, or herbal supplement you are taking. Keep the list with youat all times. Show it to your physician at every visit and before starting a new medicine. Keep thelist up to date. Ask your physician or pharmacist to help you write a plan or schedule so that you know things abouteach medicine such as: Why you are taking it. The possible side effects. The best time of day to take it. Foods to take with it or avoid. When to stop taking it. Ask your physician for a copy of your latest heart tracing (EKG or ECG). Keep a copy with you at all times. Document Released: 07/09/2006 Document Re-Released: 10/15/2008 [employer] Patient Information 2009 [employer]. Scan below for Citizen Of [place] Heart Association instructions packet [place] 09/10/2023 15:20:09 Congestive Heart Failure [facility] [place] Congestive Heart Failure Congestive heart failure (CHF) is the inability of the heart to efficiently pump blood. This results in congestion of the lungs. This condition is commonly called fluid in the lungs. It may lead tocongestion of veins in other parts of the body. This may cause swelling (edema) in the ankles or legs. CAUSES: Coronary artery disease (blockages in the arteries of the heart) deprives the heart muscle of oxygen, and weakens the muscle. A heart attack is a form of coronary artery disease. High blood pressure causes the heart muscle to work harder than usual. Over time, the heart muscle may get stiff, and it starts to work less efficiently. It may also fatigue and weaken. Viral infection of the heart (myocarditis) may weaken the heart muscle. Metabolic conditions such as thyroid disease, excessive alcohol use, certain vitamin deficiencies, or diabetes, may also weaken the heart muscle. Leaky or stiff heart valves may impair normal heart function. Lung disease may strain the heart muscle. Excessive demands on the heart such as too much salt or fluid intake. Failure to take prescribed medicines. Disease of the heart muscle (cardiomyopathy) may occur for various reasons that are less common than those above. SYMPTOMS The symptoms of heart failure may be subtle and hard to detect. Symptoms may include: Shortness of breath with exertion (climbing stairs for example). Rapid heartbeat. Unexplained weight gain. Difficulty lying flat in bed because it is hard to breathe. Waking from sleep with shortness of breath and the need to sit up and get more air. New or worsened swelling of the ankles or abdomen. Fatigue and loss of energy. Feeling light-headed or close to fainting. DIAGNOSIS: Initial diagnosis may be based on your history, symptoms, and a physical examination. Additional tests for CHF may include: EKG. Chest X-ray. Blood tests. Stress test. Ultrasound evaluation of the heart (echocardiogram). Evaluation by a heart doctor (jig builder helper). Test of the heart arteries to look for blockages (angiogram). Check of blood oxygen. TREATMENT: The focus of treatment is to relieve the symptoms of CHF. It may include medications such as: Beta blockers block the effects of adrenalin or stress hormones in order to slow the heart and relax blood vessels. They may help the heart work better and lower blood pressure. [place] inhibitors block the effects of a special blood protein called angiotension- converting enzyme ([place]). [place] may cause blood vessels to narrow so that it is harder for blood to flow. Blocking this effect relaxes the vessels so blood flows easier. The heart does not have to work as hard. These medicines are believed to reduce the incidence of heart attacks and strokes. Calcium channel blockers slow calcium passing into the cells of the heart and blood vessels. Blood vessels are more relaxed and there is more blood flow. They may be used with other treatments after a heart attack to reduce the chance of another. Diuretics are also known as water pills. They reduce the amount of sodium and water held in the body so the kidneys make more urine. This helps lower blood pressure and helps the heart pump better. With CHF, diuretics help prevent fluid in the lungs so breathing is easier. Statins lower the level of cholesterol in the blood by blocking an enzyme in the liver. Statins reduce the buildup of plaque on the puente of arteries in the body (atherosclerosis). Over time, plaque makes an artery narrower and may break off and cause a clot. A clot may result in a heart attack or stroke. Statins may be taken for a long time to help prevent this buildup of plaque. Nitrates help relax arteries of the heart and veins around the body. This lowers blood pressure andimproves blood flow to the heart so it gets more oxygen. The heart does not have to work as hard. It may include measures to correct conditions such as: High blood pressure. Diabetes. Atherosclerosis. Excessive alcohol intake. Smoking. It may include: Procedures to open blocked arteries, repair damaged heart valves, or remove some of the damaged heart muscle. A pacemaker to help the heart pump with less effort. HOME CARE INSTRUCTIONS: Activity Level -- Your physician will help you determine what type of exercise program may be helpful. It is important to maintain strength and increase it if possible. Pace your activities to avoid shortness of breath or chest pain. Rest for at least 1 hour before and after meals. Cardiac rehabilitation programs are available in some locations. Diet -- Eat a heart healthy diet, low in salt, saturated fat, and cholesterol. Ask for help with choices. Weight Monitoring When you get home, weigh yourself and record your weight. Then, weigh yourself daily, first thing in the morning, and record the weights. Any change of more than 2-4 pounds over a few days should be discussed with your physician. Your medications may need to be adjusted. Blood pressure monitoring should be done as often as directed. You can get a home blood pressure cuff at your [facility]. Record these values and bring them with you for your follow up physician visits. Notify your physician if you become dizzy or lightheaded upon standing up. If you are currently a smoker, it is time to quit. Nicotine makes your heart work harder and is oneof the leading causes of heart (cardiac) deaths. Do not use nicotine gum or patches before talking to your physician. Be sure to schedule a follow-up visit with your caregiver. Keep your appointments! SEEK IMMEDIATE MEDICAL CARE ---Call 911--IF: You have severe chest pain. Especially if the pain is crushing or pressure-like and spreads to the arms, back, neck, or jaw, or if you have sweating, are feeling sick to your stomach (nausea), or youare experiencing shortness of breath. THIS IS AN EMERGENCY. DO NOT wait to see if the pain will go away. Get medical help at once. Call for local emergency medical help. DO NOT drive yourself to the hospital. Your weight increases by 2-4 pounds or more within three days. You notice increasing shortness of breath that is unusual for you. This may happen during rest, sleep or with activity. You develop chest pain (angina) or pain that is unusual for you. You develop sweating or nausea that is unusual for you. You notice more swelling in your hands, feet, ankles or abdomen. You notice lasting (persistent) dizziness, blurred vision, headache, or unsteadiness. You begin to cough up bloody mucus (sputum). You are unable to sleep because it is hard to breathe. You begin to feel a jumping or fluttering sensation (palpitations) in the chest that is unusual foryou. IMPORTANT: Make a list of every medicine, vitamin, or herbal supplement you are taking. Keep the list with youat all times. Show it to your physician at every visit and before starting a new medicine. Keep thelist up to date. Ask your physician or pharmacist to help you write a plan or schedule so that you know things abouteach medicine such as: Why you are taking it. The possible side effects. The best time of day to take it. Foods to take with it or avoid. When to stop taking it. Ask your physician for a copy of your latest heart tracing (EKG or ECG). Keep a copy with you at all times. Document Released: 07/09/2006 Document Re-Released: 10/15/2008 [employer] Patient Information 2009 Next 2 Greatness. Scan below for Citizen Of [place] Heart Association instructions packet [place] Follow Up Care 09/08/2023 20:47:14 With:Ethan RIVERA, LIBORIO Lopez Address: [facility] [address], [address] [place] [address]- When:11/08/2023 09:10:00 Comments:Will be seeing at this time With:Kitty RIVERA, AMOS Andrade Address: [facility] [place] [address] [place] [address]- When:09/19/2023 14:00:00 Comments:There are labs that need done before appointment. With:RICARDA AL DO Address: [address] [place] [id number]- When:09/13/2023 10:30:00 [facility]02-18-[facility]24 Evaluation + Plan noteExtracted from: Title:APSO Note Author:Ankush COUCH MD Date: 63-year-old male with histor y of chronic kidney disease stage IV, hypertension, coronary artery disease, history of cerebrovascular accident, obesity, wide- complex tachycardia refusing AICD, chronic systolic congestive heart failure, cigarette smoker presented with complaints of shortness of breath and was admitted with acute respiratory failure with hypoxia secondary to acute pulmonary edema and acute on chronic systolic congestive heart failure, pleural effusion secondary to medication noncompliance, acute urinary retention, medication noncompliance 1. Acute respiratory failure with hypoxia (J96.01: Acute respiratory failure with hypoxia) Acute respiratory failure with hypoxia secondary to acute on chronic systolic congestive heart failure, acute pulmonary edema. Slowly improving. Nebulizer treatments as needed. Wean down oxygen as tolerated. Oxygen desaturation study prior to discharge. Ordered: [facility] Care/Day Moderate 35 Minutes 97158 2. Acute on chronic systolic congestive heart failure (I50.23: Acute on chronic systolic (congestive) heart failure) Acute on chronic systolic congestive heart failure secondary to medication noncompliance. Started patient on IV Bumex. Give patient extra dose of metolazone. Monitor input and output. Ordered: [facility] Care/Day Moderate 35 Minutes [id number] 3. Pulmonary edema (J81.1: Chronic pulmonary edema) Secondary to above #2. Treating with IV Bumex and metolazone. [facility] 35 Minutes [id number] 4. Pleural effusion (J90: Pleural effusion, not elsewhere classified) Secondary to above. Treating with diuretics. 5. Noncompliance with medication regimen (Z91.148: Patient's other noncompliance with medication regimen for other reason) Contributing to above acute on chronic systolic congestive heart failure and acute pulmonary edema. Patient advised on importance of medication compliance. Ordered: [facility] Care/Day Moderate 35 Minutes [id number] 6. Acute urinary retention (R33.8: Other retention of urine) Acute urinary retention present during this admission. Suspect secondary to BPH. Status post Aponte catheter placement. Will do voiding trial prior to discharge. May need urology follow-up at discharge if unable to remove Aponte catheter after voiding trial. Ordered: [facility] Care/Day Moderate 35 Minutes [id number] 7. Chronic systolic congestive heart failure (I50.22: Chronic systolic (congestive) heart failure) Chronic systolic congestive heart failure with EF of about 25 to 30%. Patient has been refusing AICD. Continue on hydralazine, Coreg, isosorbide and Bumex. 8. CKD (chronic kidney disease), stage IV (N18.4: Chronic kidney disease, stage 4 (severe)) Secondary to hypertensive nephropathy. At baseline. 9. Epigastric pain (R10.13: Epigastric pain) Secondary to above #1 and 2. Supportive care. 10. Hypertension (I10: Essential (primary) hypertension) Blood pressure fairly controlled. Continue on Coreg, hydralazine, isosorbide and Bumex. 11. History of DVT in adulthood (Z86.718: Personal history of other venous thrombosis and embolism) On Coumadin. 12. Coronary artery disease (I25.10: Atherosclerotic heart disease of [place] coronary artery without angina pectoris) Supportive care. 13. History of CVA in adulthood (Z86.73: Personal history of transient ischemic attack (TIA), and cerebral infarction without residual deficits) Historical. Supportive care. 14. Obesity (E66.9: Obesity, unspecified) Recommend therapeutic lifestyle modification changes. 15. Smoker (F17.200: Nicotine dependence, unspecified, uncomplicated) Recommend cessation. Nicotine patch. 16. On deep vein thrombosis (DVT) prophylaxis (Z79.899: Other skilled nursing (current) drug therapy) Coumadin. Disposition: Continue current treatment in the hospital pending significant improvement and weaning down oxygen. I discussed the diagnosis and plan of care with the patient at the bedside. Moderate level of MDM based on addressing above issues. This documentation was transcribed using voice recognition software. Several attempts were made to ensure accuracy. However inadvertent computerized music manager errors may be present. Ankush Couch. Hospitalist. Orders: bumetanide, 2 mg = 8 mL, Injection, IV Push, BID, Routine, Start date 09/09/23 17:00:00 EST, 09/09/23 9:03:00 EST metolazone, 5 mg = 2 tab(s), Tab, Oral, Once, Stop date 09/09/23 10:00:00 EST, Routine, Start date 09/09/23 10:00:00 EST, 09/09/23 9:03:00 EST nicotine, 14 mg, 1 patch(es), Patch-ER, TransDermal, Daily, Routine, Start date 09/10/23 9:00:00 EST Basic Metabolic Panel Extracted from: Title:Admission H & P Author:Tanner REYNOSO DO Date:09/08/23 1. Acute respiratory failure with hypoxia (J96.01: Acute respiratory failure with hypoxia) Patient does have elevated beta natruretic peptide and portable chest x-ray consistent with bilateral pleural effusions. Suspect this is patient's cause of respiratory distress. Patient given Bumex 1 mg IV in the emergency department. Will resume patient on Bumex 2 mg p.o. twice daily. Patient states that he does forget his dose sometimes. Patient also states that he may have had increased salt intake recently. Will put patient on DuoNeb 4 times daily and albuterol neb as needed. Continue oxygen. Will check procalcitonin, influenza A/B rapid swab, COVID rapid swab and respiratory viral panel for possible infectious cause. 2. Pulmonary edema (J81.1: Chronic pulmonary edema) See #1 3. CKD (chronic kidney disease), stage IV (N18.4: Chronic kidney disease, stage 4 (severe)) Baseline GFR 20-30 mill per minute over the past 2 to 3 years. Will be cautious with nephrotoxic drugs. Recheck BMP with morning labs. 4. Epigastric pain (R10.13: Epigastric pain) Unclear cause of epigastric pain. CT scan abdomen pelvis without contrast preliminarily normal. Patient does have a mildly elevated total bilirubin. Will recheck LFTs with morning labs. Will order oxycodone and Tylenol as needed for pain control. 5. Hypertension (I10: Essential (primary) hypertension) Resume home medications once reconciled. Hydralazine iv prn. see orders. 6. History of DVT in adulthood (Z86.718: Personal history of other venous thrombosis and embolism) Continue Coumadin per pharmacy. Goal INR 2.0-3.0 7. Coronary artery disease (I25.10: Atherosclerotic heart disease of [place] coronary artery without angina pectoris) Unremarkable troponin. Will repeat with morning labs. Orders: acetaminophen, 650 mg = 2 tab(s), Tab, Oral, q6hr PRN Pain, Routine, Start date 09/09/23 0:30:00 EST, 09/09/23 0:30:00 EST albuterol, 2.5 mg, 3 mL, Soln-Inh, Inhalation, q2hr PRN Shortness of breath or wheezing, Routine, Start date 09/09/23 0:28:00 EST albuterol-ipratropium, 3 mL, Soln-Inh, Inhalation, QID, Routine, Start date 09/09/23 8:00:00 EST benzonatate, 100 mg = 1 cap(s), Cap, Oral, TID PRN Cough, Routine, Start date 09/09/23 0:28:00 EST, 09/09/23 0:28:00 EST bumetanide, 2 mg = 2 tab(s), Tab, Oral, BID, Routine, Start date 09/09/23 9:00:00 EST, 09/09/23 0:24:00 EST carvedilol, 6.25 mg = 1 tab(s), Tab, Oral, BID, NOW, Start date 09/09/23 0:24:00 EST, 09/09/23 0:24:00 EST diphenhydrAMINE, 25 mg = 1 cap(s), Cap, Oral, q6hr PRN Itching, Routine, Start date 09/09/23 0:30:00 EST, 09/09/23 0:30:00 EST hydrALAZINE, 10 mg = 0.5 mL, Injection, IV Push, q6hr PRN Other (see comment), Routine, Start date 09/09/23 0:30:00 EST, 09/09/23 0:30:00 EST hydrALAZINE, 10 mg = 1 tab(s), Tab, Oral, TID, NOW, Start date 09/09/23 0:24:00 EST, 09/09/23 0:24:00 EST isosorbide dinitrate, 10 mg = 1 tab(s), Tab, Oral, TIDWM, NOW, Start date 09/09/23 0:25:00 EST ondansetron, 4 mg = 2 mL, Injection, IV Push, q6hr PRN Nausea, Routine, Start date 09/09/23 0:30:00 EST, 09/09/23 0:30:00 EST oxycodone, 5 mg = 1 tab(s), Tab, Oral, q4hr PRN Pain 8-10 for 5 day(s), Stop date 09/14/23 0:28:00 EST, Routine, Start date 09/09/23 0:29:00 EST Ambulate with Assistance Basic Metabolic Panel Below the Knee Intermittent Pneumatic Compression Device Cardiac Diet Cardiac Monitoring Consult to Pharmacy Hepatic Function Panel Influenza A&B Ag Intake and Output Magnesium Level Notify Provider Vital Signs Notify Provider Vital Signs Oxygen Protocol Place in Status Precautions Procalcitonin Rapid COVID Antigen ([facility] Respiratory Panel by PCR Resuscitation Status - Full Saline Lock Convert From IV Troponin Vital Signs Weight Anticipated stay greater than 2 midnights due to above Extracted from: Title:ED Note Author:Lorraine Rose DO Date :09/08/23 Epigastric pain (R10.13: Epi gastric pain) Pleural effusion (J90: Pleural effusion, not elsewhere classified) Pulmonary edema (J81.1: Chronic pulmonary edema) Orders: bumetanide, 1 mg = 4 mL, Injection, IV Push, Once, Stop date 09/08/23 22:19:00 EST, STAT, Start date 09/08/23 22:19:00 EST, 09/08/23 22:19:00 EST HYDROmorphone, 0.5 mg = 0.5 mL, Injection, IV Push, Once, Stop date 09/08/23 21:59:00 EST, STAT, Start date 09/08/23 21:59:00 EST, 09/08/23 21:59:00 EST morphine, 4 mg = 1 mL, Injection, IV Push, Once, Stop date 09/08/23 21:10:00 EST, STAT, Start date 09/08/23 21:10:00 EST, 09/08/23 21:10:00 EST ondansetron, 4 mg = 2 mL, Injection, IV Push, Once, Stop date 09/08/23 21:10:00 EST, STAT, Start date 09/08/23 21:10:00 EST, 09/08/23 21:10:00 EST Sodium Chloride 0.9% intravenous solution 1,000 mL, 1,000 mL, IV, 20 mL/hr, STAT, Start date 09/08/23 21:04:00 EST, 50 hour(s), Total volume (mL): 1,000, 117.5 kg, 2.44, m2 Add on Test B-Type Natriuretic Peptide Basic Metabolic Panel CBC w/ Auto Diff CT Abdomen/Pelvis w/o Contrast ECG 12 Lead Adult ED Physician consult Hospitalist for continued care eGFR Extra Blue Tube Extra SST Tube Hepatic Function Panel Lipase Level Troponin 0 Hr. UA With Cult Reflex XR Chest Single View [facility]18[facility] HospitalComment on above:Result Comment: Electronically Signed By: Tanner REYNOSO DO.[email or web address]\Date and Time Signed: 09/09/23 00:47 [id number] History and physical note* Cole Mccray APRN.BEAN PICKER MACHINE OPERATOR - 09/03/2023 2:30 PM EST Images from the original note were not included. HISTORY AND PHYSICAL EXAMINATION (IMPACT) SERVICE DATE: 09/03/2023 SERVICE TIME: 9:36 AM PRIMARY CARE PHYSICIAN: Ricarda Al DO CHIEF COMPLAINT/HISTORY OF PRESENT ILLNESS: is a 63 year old male referred to me for preoperative evaluation. My final recommendations will be communicated back to the requesting physician/surgeon by the way of the shared medical record. Referring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 of life will improve, significantly. The risks, benefits, alternatives, personnel and complications of cataract surgery with lens implantation were discussed with Hien Johnson in detail. he appeared to understand and asked that I proceed with plans for surgery. CE/IOL right CC60 / -1.00 Pseudophakia OS T2DM w/o DR - well controlled Patrice Castañeda MD I have confirmed and edited as necessary the relevant ophthalmic history, ROS, and the neuro exam findings as obtained by others. I have seen and examined Hien Johnson. I have discussed the case and the management of this patient's care with the Resident/Fellow, if applicable. I also have reviewed and agree with the assessment and plan as stated above and agree with all of its relevant components. Patrice Castañeda [facility]01-22-2024 Evaluation note* Encounter Date Diagnosis Assessment Notes Treatment Notes Treatment Clinical Notes Jul, Ischemic cardiomyopathy (ICD-10 - I25.5) This patient is stable without activity related CP, dyspnea or lightheadedness. They are instructed to continue exercise and AHA diet plan. Continue secondary prevention measures. Jul, Chronic venous hypertension with ulcer and inflammation involving left side (ICD-10 - I87.332) Low salt diet, elevate LLE and compression of tolerable. Cleanse w/ soap and water daily. Apply Mupirocin daily. Notify office w/ increased tenderness, bleeding or purulent drainage Jul, Chronic HFrEF (heart failure with reduced ejection fraction) (ICD-10 - I50.22) Instructed on low salt diet, exercise and daily weights. Instructed to notify office for any unexpected weight gain > 3lbs and/or increased dyspnea, difficulty breathing during sleep, worsening lower extremity swelling, chest pain or lightheadedness. Reviewed GDMT w/ beta blockers, [place]/ARB/ARNI, MRA and SGLT-2 Jul, Type 2 diabetes mellitus with hyperglycemia, without long-term current use of insulin (ICD-10 - E11.65) This patient is following a comprehensive diabetic treatment plan. They are checking their feet daily for calluses and nonhealing ulcers. They are being seen for yearly dilated eye examinations. Goals: SBP less than 130, LDL less than 100, FBS less than 140, A1C less than 7%. They are checking their BS daily, will which are reviewed at the office visit. Continue regular routine monitoring of A1C,] Microalbumin, Dilated eye exam and Foot exam Increases risk for more serious infection w/ prolonged healing. Notify office if not improving as expected or develop pain, bleeding or drainage [email or web address] Other 01-11-2024 Evaluation note* Encounter Date Diagnosis Assessment Notes Treatment Notes Treatment Clinical Notes Jul, Stage 5 chronic kidney disease not on chronic dialysis (ICD-10 - N18.5) [email or web address] Other 01-11-2024 Evaluation note* Encounter Date Diagnosis Assessment Notes Treatment Notes Treatment Clinical Notes Jul, Ischemic cardiomyopathy (ICD-10 - I25.5) This patient is stable without activity related CP, dyspnea or lightheadedness. They are instructed to continue exercise and AHA diet plan. Continue secondary prevention measures. Jul, Acute on chronic HFrEF (heart failure with reduced ejection fraction) (ICD-10 - I50.23) Instructed on low salt diet, exercise and daily weights. Instructed to notify office for any unexpected weight gain > 3lbs and/or increased dyspnea, difficulty breathing during sleep, worsening lower extremity swelling, chest pain or lightheadedness. Reviewed GDMT w/ beta blockers, [place]/ARB/ARNI, MRA and SGLT-2 Increase bumex to bid for next 3 days w/ goal to reduce weight by 10lbs. Jul, Permanent atrial fibrillation (ICD-10 - I48.21) This patient is in NSR or rate controlled. This patient is anticoagulated to prevent thromboembolic events. They are maintaining regular scheduled appts with their jig builder helper. COntinue f/u Warfarin clinic w/ goal of INR 2-3 No bleeding complications Jul, Type 2 diabetes mellitus with hyperglycemia, without long-term current use of insulin (ICD-10 - E11.65) This patient is following a comprehensive diabetic treatment plan. They are checking their feet daily for calluses and nonhealing ulcers. They are being seen for yearly dilated eye examinations. Goals: SBP less than 130, LDL less than 100, FBS less than 140, A1C less than 7%. They are checking their BS daily, will which are reviewed at the office visit. Continue regular routine monitoring of A1C,] Microalbumin, Dilated eye exam and Foot exam Jul, Mucopurulent chronic bronchitis (ICD-10 - J41.1) Increase fluids and begin Mucolytics: Mucinex YOUNG as needed for SOB, wheezing and increased phlegm. Jul, Stage 5 chronic kidney disease not on chronic dialysis (ICD-10 - N18.5) The patient is instructed on adequate control of hypertension and diabetes, if appropriate. They are also educated on the associated risks of NSAIDs and PPI use with kidney disease. They were instructed on adequate fluid balance and to avoid dehydration. f/u Nephrology Jul, Elevated cholesterol (ICD-10 - E78.00) Jul, CHRISTEN (obstructive sleep apnea) (ICD-10 - G47.33) This patient is aware of the benefits associated with CHRISTEN: With continued use, the patient reduces the risk for NE, CVA, HTN, cardiac dysrhythmias and sudden cardiac deaths.The patient is also aware of the association between CHRISTEN and morning headaches, daytime somnolence, fatigue and obesity Noncompliant Jul, Chronic venous hypertension involving both sides (ICD-10 - I87.303) Avoid salt and elevate lower extremities, support stockings, inspect legs and feet daily for blisters and ulcerations. Blister opened to drain serous fluid Covered w/ gauze and instructed to keep protected Recheck next week Jul, Other Instructed on l ow salt diet, exercise and daily weights. Instructed to notify office for any unexpected weight gain > 3lbs and/or increased dyspnea, difficulty breathing during sleep, worsening lower extremity swelling, chest pain or lightheadedness. Reviewed GDMT w/ beta blockers, [place]/ARB/ARNI, MRA and SGLT-2 [email or web address] Other 10-31-2023 NoteHNO ID: [id number] Author: César Simons OD Service: ? 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 [facility]añ[facility] Encounter Date Diagnosis Assessment Notes Treatment Notes Treatment Clinical Notes Apr, Mucopurulent chronic bronchitis (ICD-10 - J41.1) Continue triple therapy w/ Breztri Not able to use YOUNG due to coordination and poor inspiratory effort Recommend HHN - thin secretions - improve mobilization of secretions - improve dyspnea - prevent recurrent infections Apr, Rhinovirus infection (ICD-10 - B34.8) Will result in productive cough Mucolytics and HHN to clear secretions Apr, HFrEF (heart failure with reduced ejection fraction) (ICD-10 - I50.20) Instructed on low salt diet, exercise and daily weights. Instructed to notify office for any unexpected weight gain > 3lbs and/or increased dyspnea, difficulty breathing during sleep, worsening lower extremity swelling, chest pain or lightheadedness. Reviewed GDMT w/ beta blockers, [place]/ARB/ARNI, MRA and SGLT-2 Apr, Ischemic cardiomyopathy (ICD-10 - I25.5) This patient is stable without activity related CP, dyspnea or lightheadedness. They are instructed to continue exercise and AHA diet plan. Continue secondary prevention measures. Apr, Permanent atrial fibrillation (ICD-10 - I48.21) This patient is in NSR or rate controlled. This patient is anticoagulated to prevent thromboembolic events. They are maintaining regular scheduled appts with their jig builder helper. Apr, Type 2 diabetes mellitus with hyperglycemia, without long-term current use of insulin (ICD-10 - E11.65) This patient is following a comprehensive diabetic treatment plan. They are checking their feet daily for calluses and nonhealing ulcers. They are being seen for yearly dilated eye examinations. Goals: SBP less than 130, LDL less than 100, FBS less than 140, A1C less than 7%. They are checking their BS daily, will which are reviewed at the office visit. Continue regular routine monitoring of A1C, Microalbumin, Dilated eye exam and Foot exam Apr, Stage 5 chronic kidney disease not on chronic dialysis (ICD-10 - N18.5) The patient is instructed on adequate control of hypertension and diabetes, if appropriate. They are also educated on the associated risks of NSAIDs and PPI use with kidney disease. They were instructed on adequate fluid balance and to avoid dehydration. Apr, Elevated cholesterol (ICD-10 - E78.00) Instructed on diet and exercise with continued statin therapy.Discussed the beneficial effects of lowering cholesterol in reducing the risk for cerebrovascular and cardiovascular disease. Apr, CHRISTEN (obstructive sleep apnea) (ICD-10 - G47.33) This patient is aware of the benefits associated with CHRISTEN: With continued use, the patient reduces the risk for NE, CVA, HTN, cardiac dysrhythmias and sudden cardiac deaths.The patient is also aware of the association between CHRISTEN and morning headaches, daytime somnolence, fatigue and obesity [email or web address] Other 10-15-2023 [facility]Result Comment: Electronically Signed By: Rema SOLORZANO MD\.br\Date and Time Signed: 05/06/23 11:30 [id number] [facility] HospitalComment on above:Result Comment: Electronically Signed By: Rema SOLORZANO MD\.br\Date and Time Signed: 04/30/23 16:09 [id number] Hospital Discharge instructions Patient Education 04/20/2023 23:53:38 Pulmonary Edema, Aubp-bi-Suxm Pulmonary Edema Pulmonary edema is when fluid collects in the air sacs of the lungs. This makes it hard for a person to breathe. The condition is an emergency. It needs to be treated right away. What are the causes? This condition is often caused by heart failure. Heart failure may be caused by: Coronary artery disease. High blood pressure. Infection of the heart from a virus (myocarditis). Leaky or stiff heart valves. Irregular heartbeat (arrhythmia). Fluid buildup caused by kidney problems. Other causes of pulmonary edema include: Infection in the lungs (pneumonia), blood, or other parts of the body. A very bad injury to the chest. Lung injury from heat or harmful substances, such as breathing in smoke or poisonous gas. Breathing in (inhaling) vomit or water. Certain medicines. High altitude. What are the signs or symptoms? Shortness of breath. Coughing with frothy or bloody mucus. Making high-pitched whistling sounds when you breathe, most often when you breathe out (wheezing). Feeling like you cannot get enough air. Shallow and fast breathing. Skin that is cool and damp, and has a pale or bluish color. How is this treated? Treatment depends on the cause and may include: Getting oxygen through tubes in your nose or through a face mask. In very bad cases, you may need abreathing tube hooked up to a breathing machine (ventilator). Medicines to: ?Help the body get rid of extra water. ?Help the heart pump blood well. ?Treat or prevent blood clots. If poor heart function is the cause, treatment may also include procedures to repair heart problemsor devices such as a pacemaker. If an infection is the cause, you may be given antibiotic medicine. Follow these instructions at home: Medicines Take [id number] and prescription medicines only as told by your doctor. If you were prescribed an antibiotic medicine, take it as told by your doctor. Do not stop taking it even if you start to feel better. Ask your doctor to help you write a plan with information about each medicine you take. This shouldinclude: ?Why you are taking it. ?Possible side effects. ?Best time of day to take it. ?Foods to take with it, or foods to avoid. ?When to call your doctor. Make a list of each medicine, vitamin, or herbal supplement you take. ?Keep the list with you at all times. ?Show the list to your doctor at each visit and before starting a new medicine. ?Keep the list up to date. Lifestyle Do regular exercise as told by your doctor. It is important to do it safely. You can do this by: ?Pacing your activities. This will help you avoid shortness of breath or chest pain. ?Resting for at least 1 hour before and after meals. ?Asking about cardiac rehabilitation programs. These may include: ?Education. ?Exercise plans. ?Counseling. Eat a heart-healthy diet that is low in salt, saturated fat, and cholesterol. Your doctor may suggest foods that are high in fiber, such as: ?Fresh fruits and vegetables. ?Whole grains. ?Beans. Do not smoke or use any products that contain nicotine or tobacco. If you need help quitting, ask your doctor. General instructions Stay at a healthy weight. Keep a record of your weight. ?Record your hospital or clinic weight. When you get home, compare it to your scale and record yourweight. ?Weigh yourself first thing in the morning each day, and record the weights. You should weigh yourself every morning after you pee and before you eat breakfast. Wear the same amount of clothing each time you weigh yourself. ?Share your weight record with your doctor. These can help your doctor see if your body is holding extra fluid. ?Tell your doctor right away if you gain weight quickly. Your medicines may need to be adjusted. Check your blood pressure as often as told by your doctor. Write down your blood pressure readings.Bring them with you for your clinic visits. Think about doing therapy or joining a support group. Keep all follow-up visits. Contact a doctor if: You have a dry, hacking cough. You are gaining weight slowly. Your shortness of breath gets worse when you do an activity. You have more swelling in your hands, feet, ankles, or belly (abdomen). You have trouble sleeping because it is hard to breathe. Your blood pressure is higher than 180/120. Get help right away if: You gain weight quickly. This means gaining more than 2 3 lb (1 1.4 kg) in 24 hours or more than 5 lb (2.3 kg) in a week. You have very bad chest pain, especially if the pain is crushing or pressure- like and spreads to the arms, back, neck, or jaw. You have unusual sweating. Your skin turns blue or pale. Your shortness of breath happens without any activity. You have new or worse dizziness, blurred vision, headache, or unsteadiness. You are coughing often or cough up bloody mucus (sputum). You feel a racing heartbeat (palpitations). You have anxiety or a feeling that you cannot get enough air. You cannot breathe when lying flat. Your blood pressure is higher than 180/120 and you have any of the above symptoms. These symptoms may be an emergency. Get help right away. Call your local emergency services (911 inthe [place] Do not wait to see if the symptoms will go away. Do not drive yourself to the hospital. Summary Pulmonary edema is when fluid collects in the air sacs of the lungs. This condition is an emergency. Keep a record of your weight. Get help right away if you gain weight quickly. This information is not intended to replace advice given to you by your health care provider. Make sure you discuss any questions you have with your health care provider. Document Revised: 05/31/2021 Document Reviewed: 05/31/2021 [employer] Patient Education 2022 [employer]. 04/20/2023 23:53:38 How to Use a Metered Dose Inhaler How to Use a Metered Dose Inhaler A metered dose inhaler (MDI) is a handheld device filled with medicine that must be breathed into the lungs (inhaled). The medicine is delivered by pushing down on a metal canister. This releases a preset amount of spray and mist through the mouth and into the lungs. Each MDI canister holds a certain number of doses (puffs). Using a spacer with a metered dose inhaler may be recommended to help get more medicine into the lungs. A spacer is a plastic tube that connects to the MDI on one end and has a mouthpiece on the other end. A spacer holds the medicine in the tube for a short time. This allows more medicine to be inhaled. The MDI can be used to deliver many kinds of inhaled medicines, including: Quick relief or rescue medicines, such as bronchodilators. Controller medicines, such as corticosteroids. What are the risks? If you do not use your inhaler correctly, medicine might not reach your lungs to help you breathe. If you do not have enough strength to push down the canister to make it spray, ask your health careprovider for ways to help. The medicine in the MDI may cause side effects, such as: ?Mouth sores (thrush). ?Cough. ?Hoarseness. ?Shakiness. ?Headache. Supplies needed: A metered dose inhaler. A spacer, if recommended. How to use a metered dose inhaler without a spacer 1.Remove the cap from the inhaler. 2.If you are using the inhaler for the first time, shake it for 5 seconds, turn it away from your face, then release 4 puffs into the air. This is called priming. 3.Shake the inhaler for 5 seconds. 4.Position the inhaler so the top of the canister faces up. 5.Put your index finger on the top of the medicine canister. Support the bottom of the inhaler withyour thumb. 6.Breathe out normally and as completely as possible, away from the inhaler. 7.Either place the inhaler between your teeth and close your lips tightly around the mouthpiece, orhold the inhaler 1 2 inches (2.5 5 cm) away from your open mouth. Keep your tongue down out of the way. If you are unsure which technique to use, ask your health care provider. 8.Press the canister down with your index finger to release the medicine. Inhale deeply and slowly through your mouth until your lungs are completely filled. Do not breathe in through your nose. Inhaling should take 4 6 seconds. 9.Hold the medicine in your lungs for 5 10 seconds (10 seconds is best). This helps the medicine get into the small airways of your lungs. 10.Remove the inhaler from your mouth, turn your head, and breathe out normally. 11.Wait about 1 minute between puffs or as directed. Then repeat steps 3 10 until you have taken the number of puffs that your health care provider directed. 12.Put the cap on the inhaler. 13.If you are using a steroid inhaler, rinse your mouth with water, gargle, and spit out the water.Do not swallow the water. How to use a metered dose inhaler with a spacer 1.Remove the cap from the inhaler. 2.If you are using the inhaler for the first time, shake it for 5 seconds, turn it away from your face, then release 4 puffs into the air. This is called priming. 3.Shake the inhaler for [address] the open end of the spacer onto the inhaler mouthpiece. 5.Position the inhaler so the top of the canister faces up and the spacer mouthpiece faces you. 6.Put your index finger on the top of the medicine canister. Support the bottom of the inhaler and the spacer with your thumb. 7.Breathe out normally and as completely as possible, away from the spacer. 8.Place the spacer between your teeth and close your lips tightly around it. Keep your tongue down out of the way. 9.Press the canister down with your index finger to release the medicine, then inhale deeply and slowly through your mouth until your lungs are completely filled. Do not breathe in through your nose.Inhaling should take 4 6 seconds. 10.Hold the medicine in your lungs for 5 10 seconds (10 seconds is best). This helps the medicine get into the small airways of your lungs. 11.Remove the spacer from your mouth, turn your head, and breathe out normally. 12.Wait about 1 minute between puffs or as directed. Then repeat steps 3 11 until you have taken the number of puffs that your health care provider directed. 13.Remove the spacer from the inhaler and put the cap on the inhaler. 14.If you are using a steroid inhaler, rinse your mouth with water, gargle, and spit out the water.Do not swallow the water. Follow these instructions at home: Caring for your MDI Store your inhaler at or near room temperature. A cold MDI will not work properly. Follow directions on the package insert for care and cleaning of your MDI and spacer. General instructions Take your inhaled medicine only as told by your health care provider. Do not use the inhaler more than directed by your health care provider. Refill your MDI with medicine before all the preset doses have been used. ?If your inhaler has a counter, check it to determine how full your MDI is. The number you see tells you how many doses are left. ?If your inhaler does not have a counter, ask your health care provider when you will need to refill it. Then write the refill date on a calendar or on your MDI canister. ?Keep in mind that you cannot tell when the medicine in an inhaler is empty by shaking it. You may feel or hear something in the canister even when the preset medicine doses have been used up. Keeping track of your dosages is important. Do not use any products that contain nicotine or tobacco, such as cigarettes, e- cigarettes, and chewing tobacco. If you need help quitting, ask your health care provider. Keep all follow-up visits as told by your health care provider. This is important. Where to find more information Centers for Disease Control and Prevention: www.cdc.gov [place] Lung Association: www.lung.org Contact a health care provider if: Symptoms are only partially relieved with your inhaler. You are having trouble using your inhaler. You have side effects from the medicine. You have chills or a fever. You have night sweats. There is blood in your thick saliva (phlegm). Get help right away if: You have dizziness. You have a fast heart rate. You have severe shortness of breath. You have difficulty breathing. These symptoms may represent a serious problem that is an emergency. Do not wait to see if the symptoms will go away. Get medical help right away. Call your local emergency services (911 in the [place] Do not drive yourself to the hospital. Summary A metered dose inhaler is a handheld device for taking medicine that must be breathed into the lungs (inhaled). Take your inhaled medicine only as told by your health care provider. Do not use the inhaler more than directed by your health care provider. You cannot tell when the medicine is gone in an inhaler by shaking it. Refill it with medicine before all the preset doses have been used. Follow directions on the package insert for care and cleaning of your MDI and spacer. This information is not intended to replace advice given to you by your health care provider. Make sure you discuss any questions you have with your health care provider. Document Revised: 08/24/2020 Document Reviewed: 08/24/2020 [employer] Patient Education 2022 [employer]. 04/20/2023 23:53:38 Asthma, Adult, Ozye-ll-[id number] Asthma, Adult Asthma is a condition that causes swelling and narrowing of the airways. These are the passages that lead from the nose and mouth down into the lungs. When asthma symptoms get worse it is called an asthma attack or flare. This can make it hard to breathe. Asthma flares can range from minor to life-threatening. There is no cure for asthma, but medicines and lifestyle changes can help to control it. What are the causes? It is not known exactly what causes asthma, but certain things can cause asthma symptoms to get worse (triggers). What can trigger an asthma attack? Cigarette smoke. Mold. Dust. Your pet's skin flakes (dander). Cockroaches. Pollen. Air pollution (like household pot holder binder, wood smoke, smog, or chemical odors). What are the signs or symptoms? Trouble breathing (shortness of breath). Coughing. Making high-pitched whistling sounds when you breathe, most often when you breathe out (wheezing). Chest tightness. Tiredness with little activity. Poor exercise tolerance. How is this treated? Controller medicines that help prevent asthma symptoms. Fast-acting reliever or rescue medicines. These give short-term relief of asthma symptoms. Allergy medicines if your attacks are brought on by allergens. Medicines to help control the body's defense (immune) system. Staying away from the things that cause asthma attacks. Follow these instructions at home: Avoiding triggers in your home Do not allow anyone to smoke in your home. Limit use of fireplaces and wood stoves. Get rid of pests (such as roaches and mice) and their droppings. Keep your home clean. ?Clean your floors. Dust regularly. Use cleaning products that do not smell. ?Wash bed sheets and blankets every week in hot water. Dry them in a dryer. ?Have someone vacuum when you are not home. ?Change your heating and air conditioning filters often. Use blankets that are made of polyester or cotton. General instructions Take kqnh-lul-fertebz and prescription medicines only as told by your doctor. Do not smoke or use any products that contain nicotine or tobacco. If you need help quitting, ask your doctor. ?Stay away from secondhand smoke. Avoid doing things outdoors when allergen counts are high and when air quality is low. Warm up before you exercise. Take time to cool down after exercise. Use a peak flow meter as told by your doctor. A peak flow meter is a tool that measures how well your lungs are working. ?Keep track of the peak flow meter's readings. Write them down. Follow your asthma action plan. This is a written plan for taking care of your asthma and treating your attacks. Make sure you get all the shots (vaccines) that your doctor recommends. Ask your doctor about a flushot and a pneumonia shot. Keep all follow-up visits. Contact a doctor if: You have wheezing, shortness of breath, or a cough even while taking medicine to prevent attacks. The mucus you cough up (sputum) is thicker than usual. The mucus you cough up changes from clear or white to yellow, green, falk, or is bloody. You have problems from the medicine you are taking, such as: ?A rash. ?Itching. ?Swelling. ?Trouble breathing. You need reliever medicines more than 2 3 times a week. Your peak flow reading is still at 50 79% of your personal best after following the action plan for1 hour. You have a fever. Get help right away if: You seem to be worse and are not responding to medicine during an asthma attack. You are short of breath even at rest. You get short of breath when doing very little activity. You have trouble eating, drinking, or talking. You have chest pain or tightness. You have a fast heartbeat. Your lips or fingernails start to turn blue. You are light-headed or dizzy, or you faint. Your peak flow is less than 50% of your personal best. You feel too tired to breathe normally. These symptoms may be an emergency. Get help right away. Call 911. Do not wait to see if the symptoms will go away. Do not drive yourself to the hospital. Summary Asthma is a long-term (chronic) condition in which the airways get tight and narrow. An asthma attack can make it hard to breathe. Asthma cannot be cured, but medicines and lifestyle changes can help control it. Make sure you understand how to avoid triggers and how and when to use your medicines. Avoid things that can cause allergy symptoms (allergens). These include animal skin flakes (dander)and pollen from trees or grass. Avoid things that pollute the air. These may include household pot holder binder, wood smoke, smog, or chemical odors. This information is not intended to replace advice given to you by your health care provider. Make sure you discuss any questions you have with your health care provider. Document Revised: 04/17/2022 Document Reviewed: 04/17/2022 [employer] Patient Education 2022 [employer]. Follow Up Care 04/20/2023 21:00:35 With:RICARDA AL Address: [address] [place] [address] [place] [address]- Business (1) When:04/23/2023 Comments:For repeat exam and laboratory studies. [facility]09-29-2023 Evaluation + Plan noteExtracted from: Title:ED Note Author:Jose Iqbal MD Date: 1. 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 Pulmonary edema (J81.1: Chronic pulmonary edema) 3. Renal insufficiency (N28.9: Disorder of kidney and ureter, unspecified) Orders: albuterol, 180 mcg, 2 puff(s), Aerosol, Inhalation, q6hr PRN Shortness of breath or wheezing, STAT, Start date 04/20/23 23:48:00 EDT, teach and treat only albuterol-ipratropium, 3 mL, Soln-Inh, Inhalation, Once, Stop date 04/20/23 21:45:00 EDT, STAT, Start date 04/20/23 21:45:00 EDT albuterol-ipratropium, 3 mL, Soln-Inh, Inhalation, Once, Stop date 04/20/23 22:28:00 EDT, STAT, Start date 04/20/23 22:28:00 EDT aspirin, 162 mg = 2 tab(s), Tab-Chew, Oral, Once, Stop date 04/20/23 21:45:00 EDT, STAT, Start date 04/20/23 21:45:00 EDT, 04/20/23 21:45:00 EDT bumetanide, 2 mg = 1 tab(s), Oral, TID, # 6 tab(s), Refills(s) 0, Pharmacy: [facility], 184, cm, 04/20/23 21:09:00 EDT, Height/Length Dosing, 107.9, kg, 04/20/23 21:09:00 EDT, Weight Dosing codeine-promethazine, 10 mL, Syrup, Oral, Once, Stop date 04/20/23 23:07:00 EDT, STAT, Start date 04/20/23 23:07:00 EDT predniSONE, 20 mg = 1 tab(s), Oral, As Directed, take two tabs daily for 5 days, then one tab daily for 5 days., # 15 tab(s), Refills(s) 0, Pharmacy: [facility], 184, cm, 04/20/23 21:09:00 EDT, Height/Length Dosing, 107.9, kg, 04/20/23 21:09:00 EDT, We... predniSONE, 60 mg = 3 tab(s), Tab, Oral, Once, Stop date 04/20/23 21:45:00 EDT, STAT, Start date 04/20/23 21:45:00 EDT, 04/20/23 21:45:00 EDT Automated Diff B-Type Natriuretic Peptide Basic Metabolic Panel CBC w/ Auto Diff Continuous Pulse Oximetry ECG 12 Lead Adult ED Cardiac Monitoring ED Cardiac Monitoring eGFR Oxygen Saturation Oxygen Therapy PT & PTT Saline Lock Insert Troponin 0 Hr. Troponin 3 Hr. Troponin 6 Hr. Troponin 9 Hr. XR Chest Single View [facility]09-29-2023 Evaluation note* Encounter Date Diagnosis Assessment Notes Treatment Notes Treatment Clinical Notes Mar, Acute bronchitis due to other specified organisms (ICD-10 - J20.8) Instructed to use Robitussin or Mucinex for cough, saline or Flonase NS for congestion, Tylenol for pain and fever. Begin antibiotics Recommend testing for COVID Mar, Chronic obstructive pulmonary disease with (acute) exacerbation (ICD-10 - J44.1) Increase use of rescue in haler to improve pulmonary toilet. Increase fluids Mar, Chronic obstructive pulmonary disease with (acute) lower respiratory infection (ICD-10 - J44.0) Instructed to use Robitussin or Mucinex for cough, saline or Flonase NS for congestion, Tylenol for pain and fever. Increase fluids [email or web address] Other 09-19-2023 NoteHNO ID: [id number] Author: Peyton Arellano MD Service: ? Author Type: Fellow Type: Progress Notes Filed: 04/10/2023 2:56 PM Note Text: Hien Johnson Referred by: No referring provider defined for this encounter. 04/10/2023 CC: Erectile Dysfunction HPI: 62 year old, male presents for evaluation of ED. History notable for hidradenitis suppurativa s/p debridement/penile skin graft/scrotectomy 01/07/2013 (thigh pouches), tobacco use (1 pack cigarettes / week, past 35y), DM2 controlled on diet (reports last A1c 6.2 in January 2023), HTN, CKD on dialysis, DVT on warfarin, ischemic cardiomyopathy. Penile prosthesis surgical history as follows: 2012: Spectra penile prosthesis, explanted for infection 10/2013: AMS malleable with Dr Rod Ortiz; d/t tunical loss, only able to place 1 cylinder. Pt unhappy with rigidity at follow up. Subsequently explanted for infection and was counselled that no further surgical options would be recommended. Unclear date: Malleable implant placed at OSH, records unavailable 03/20/2017: Explant for infection with washout and placement of AMS Spectra 9.5mm x 16cm with 2cm RTE. Unsatisfactory rigidity (unable to penetrate) per report and documentation 09/26/2019: Explant, replacement with AMS Tactra 11mm x 21cm (R and 21.5cm (L) and penoplasty for excess penile skin 03/26/2020: Excision of genital skin dartos flap advancement 07/02/2020: Explant for infection and erosion of cylinder into urethra requiring Aponte placement 01/20/2021: corporal excavation and placement of AMS Tactra 9.5mm at 05/01/2021: Removal of implant for infection He presents today to see if there are any other options for penetrative intercourse. Libido intact: Yes Energy level intact: Yes Orgasm/ejaculation intact: doesn't attempt to masturbate anymore Sensation intact: Yes Curvature: No Blood thinner: warfarin ROS: Urinary sx: none Hematuria: none Patient Entered Questionnaires PAST MEDICAL HISTORY Diagnosis Date Acute systolic (congestive) heart failure (HCC) 02/11/2020 Anemia of chronic renal failure 01/10/2017 Cataract Right Chronic obstructive pulmonary disease (HCC) 06/01/2017 COPD (chronic obstructive pulmonary disease) ([facility]) Current smoker Diabetes ([facility]) DVT (deep venous thrombosis) ([facility]) ~2001 [place] Ve[place] DVT, recurrent, lower extremity, acute ([facility]) 02/2015 Right SFA through Popliteal Vein Hidradenitis suppurativa 11/18/2012 HTN (hypertension) on lisinopril S/P IVC filter ~2001 [place] TIA (transient ischemic attack) multiple Unspecified sleep apnea Sleep apnea C-PAP PAST SURGICAL HISTORY Procedure Laterality Date APPENDECTOMY HX CHOLECYSTECTOMY HX LAPAROSCOPIC SPLENECTOMY PAST SURGICAL HISTORY OF 01/2014 Implantation of a single Spectra cylinder in the right corpora cavernosa via extended corporotomy with corporal excavation and attempted placement of a left Spectra cylinder without success. PAST SURGICAL HISTORY OF 10/2013 Penile exploration with explant of bilateral Spectra penile prosthesis cylinders PAST SURGICAL HISTORY OF 06/2013 Insertion of malleable Spectra penile prosthesis PAST SURGICAL HISTORY OF 01/2013 Split-thickness skin graft of perineum, 10 cm x 19 cm. 2. Wound bed preparation, 10 cm x 19 cm PAST SURGICAL HISTORY OF 12/2012 Debridement of perineal wounds, subcutaneous tissue. 2. Placement of wound VAC dressing (15 cm x 13 cm x 2 cm). PAST SURGICAL HISTORY OF 12/2012 Removal and re-application of VAC dressing in the perineum greater than 50 cm PAST SURGICAL HISTORY OF repair of muscle under left eye PICC LINE INSERT/CONSULT 03/02/2015 Current Outpatient Medications Medication Sig ANORO ELLIPTA 62.5-25 mcg/actuation inhaler INHALE 1 PUFF BY MOUTH ONCE DAILY hydrALAZINE (APRESOLINE) 25 mg tablet (Patient not taking: Reported on 04/10/2023) HYDROmorphone (DILAUDID) 2 mg tablet TAKE 1 TABLET BY MOUTH EVERY 12 HOURS FOR 4 DAYS NEEDED FOR SEVERE PAIN (Patient not taking: Reported on 04/10/2023) warfarin (COUMADIN) 2.5 mg tablet (Patient not taking: Reported on 04/10/2023) chlorhexidine (HIBICLENS) 4 % external liquid 118 mL. (Patient not taking: Reported on 04/10/2023) nicotine (NICODERM) 7 mg/24 hr Apply as directed q 24 HR. (Patient not taking: Reported on 04/10/2023) warfarin (COUMADIN) 5 mg tablet Warfarin Warfarin Active 5 MG Oral every Sunday, Sunday, and Sunday April 28, 2019 4:44pm as directed by [facility] 04-28[facility] ([id number]) (Patient not taking: Reported on 04/10/2023) cephALEXin (KEFLEX) 500 mg capsule Take 500 mg by mouth twice daily. (Patient not taking: Reported on 04/10/2023) oxyCODONE IR (ROXICODONE) 5 mg immediate release tablet Take 5 mg by mouth. (Patient not taking: Reported on 04/10/2023) isosorbide dinitrate (ISORDIL) 10 mg tablet Take 10 mg by mouth three times daily. (Patient not taking: Reported on 04/10/2023) carvedilol (CO (more content not included)...[facility] 04-10-2023 Instructions* Patient Instructions* Peyton Arellano MD - 04/10/2023 1:42 PM EDT External penile prostheses are devices that can allow you to have penetrative intercourse with yourpartner even if you have severe erectile dysfunction. If medications and internal penile prosthesisare not good options for you, then the external penile prosthesis may help you regain a satisfactory sexual life. There are multiple options and there is no particular device that is endorsed by [facility]. Please use this list as a suggestion for the types of devices that are available, and remember to follow the horticultural manager safety instructions for any device that you choose. Costs of each device will vary and may not be covered by insurance. Penile support device examples: Erektor, Elator Penile Sleeve examples: RX Sleeve, LoveHoney, CalExotics, [employer]Johnson OptiMALE, Doc Jeison Body extensions BE Ready [facility] History of Present illness Narrative* Peyton Arellano MD - 04/10/2023 1:28 PM EDT Hien Johnson Referred by: No referring provider defined for this encounter. 04/10/2023 CC: Erectile Dysfunction HPI: 62 year old, male presents for evaluation of ED. History notable for hidradenitis suppurativa s/p debridement/penile skin graft/scrotectomy 01/07/2013 (thigh pouches), tobacco use (1 pack cigarettes / week, past 35y), DM2 controlled on diet (reports last A1c 6.2 in January 2023), HTN, CKD on dialysis, DVT on warfarin, ischemic cardiomyopathy. Penile prosthesis surgical history as follows: 2012: Spectra penile prosthesis, explanted for infection 10/2013 2014: AMS malleable with Dr Rod Ortiz; d/t tunical loss, only able to place 1 cylinder. Pt unhappy with rigidity at follow up. Subsequently explanted for infection and was counselled that no further surgical options would be recommended. Unclear date: Malleable implant placed at OSH, records unavailable 03/20/2017: Explant for infection with washout and placement of AMS Spectra 9.5mm x 16cm with 2cm RTE. Unsatisfactory rigidity (unable to penetrate) per report and documentation 09/26/2019: Explant, replacement with AMS Tactra 11mm x 21cm (R and 21.5cm (L) and penoplasty for excess penile skin 03/26/2020: Excision of genital skin dartos flap advancement 07/02/2020: Explant for infection and erosion of cylinder into urethra requiring Aponte placement 01/20/2021: corporal excavation and placement of AMS Tactra 9.5mm at 05/01/2021: Removal of implant for infection He presents today to see if there are any other options for penetrative intercourse. Libido intact: Yes Energy level intact: Yes Orgasm/ejaculation intact: doesn't attempt to masturbate anymore Sensation intact: Yes Curvature: No Blood thinner: warfarin ROS: Urinary sx: none Hematuria: none Patient Entered Questionnaires PAST MEDICAL HISTORY Diagnosis Date Acute systolic (congestive) heart failure (HCC) 02/11/2020 Anemia of chronic renal failure 01/10/2017 Cataract Right Chronic obstructive pulmonary disease (HCC) 06/01/2017 COPD (chronic obstructive pulmonary disease) ([facility]) Current smoker Diabetes ([facility]) DVT (deep venous thrombosis) ([facility]) ~2001 [place] DVT, recurrent, lower extremity, acute (HCC) 02/2015 Right SFA through Popliteal Vein Hidradenitis suppurativa 11/18/2012 HTN (hypertension) on lisinopril S/P IVC filter ~2001 [place] TIA (transient ischemic attack) multiple Unspecified sleep apnea Sleep apnea C-PAP PAST SURGICAL HISTORY Procedure Laterality Date APPENDECTOMY HX CHOLECYSTECTOMY HX LAPAROSCOPIC SPLENECTOMY PAST SURGICAL HISTORY OF 01/2014 Implantation of a single Spectra cylinder in the right corpora cavernosa via extended corporotomy with corporal excavation and attempted placement of a left Spectra cylinder without success. PAST SURGICAL HISTORY OF 10/2013 Penile exploration with explant of bilateral Spectra penile prosthesis cylinders PAST SURGICAL HISTORY OF 06/2013 Insertion of malleable Spectra penile prosthesis PAST SURGICAL HISTORY OF 01/2013 Split-thickness skin graft of perineum, 10 cm x 19 cm. 2. Wound bed preparation, 10 cm x 19 cm PAST SURGICAL HISTORY OF 12/2012 Debridement of perineal wounds, subcutaneous tissue. 2. Placement of wound VAC dressing (15 cm x 13cm x 2 cm). PAST SURGICAL HISTORY OF 12/2012 Removal and re-application of VAC dressing in the perineum greater than 50 cm PAST SURGICAL HISTORY OF repair of muscle under left eye PICC LINE INSERT/CONSULT 03/02/2015 Current Outpatient Medications Medication Sig ANORO ELLIPTA 62.5-25 mcg/actuation inhaler INHALE 1 PUFF BY MOUTH ONCE DAILY hydrALAZINE (APRESOLINE) 25 mg tablet (Patient not taking: Reported on 04/10/2023) HYDROmorphone (DILAUDID) 2 mg tablet TAKE 1 TABLET BY MOUTH EVERY 12 HOURS FOR 4 DAYS NEEDED FORSEVERE PAIN (Patient not taking: Reported on 04/10/2023) warfarin (COUMADIN) 2.5 mg tablet (Patient not taking: Reported on 04/10/2023) chlorhexidine (HIBICLENS) 4 % external liquid 118 mL. (Patient not taking: Reported on 04/10/2023) nicotine (NICODERM) 7 mg/24 hr Apply as directed q 24 HR. (Patient not taking: Reported on 04/10/2023) warfarin (COUMADIN) 5 mg tablet Warfarin Warfarin Active 5 MG Oral every Sunday, Sunday, and Sunday April 28, 2019 4:44pm as directed by [facility] [place] ([id number]) (Patient not taking: Reported on 04/10/2023) cephALEXin (KEFLEX) 500 mg capsule Take 500 mg by mouth twice daily. (Patient not taking: Reported on 04/10/2023) oxyCODONE IR (ROXICODONE) 5 mg immediate release tablet Take 5 mg by mouth. (Patient not taking: Reported on 04/10/2023) isosorbide dinitrate (ISORDIL) 10 mg tablet Take 10 mg by mouth three times daily. (Patient not taking: Reported on 04/10/2023) carvedilol (COREG) 12.5 mg tablet Take 12.5 mg by mouth twice daily. (Patient not taking: Reported on 04/10/2023) warfarin (COUMADIN) 10 mg tablet Take 5 mg by mouth once daily. (Patient not taking: Reported on 04/10/2023) amLODIPine (NORVASC) 5 mg tablet Take 1 tablet by mouth once daily. (Patient not taking: Reported on 04/10/2023) No current facility-administered medications for this visit. Allergies: Duragesic [Fentanyl] and Zosyn [Piperacillin-Tazobactam] Social History Tobacco Use Smoking status: Every Day Years: 37 Types: Cigarettes Start date: 07/23/1974 Smokeless tobacco: Never Tobacco comments: 1 pack over 5 days Vaping Use Vaping Use: Never used Substance Use Topics Alcohol use: Yes Comment: beer Drug use: No Comment: denies tx for drug/alcohol abuse in the past. Review of Systems: All other systems reviewed and noncontributory VITALS: BP 144/94 (BP Site: Right Arm, BP Position: Sitting, BP Cuff Size: Large Adult) Pulse 83 Wt 108.1 kg (238 lb 4.8 oz) BMI 32.32 kg/m GENERAL: alert, no distress, normal affect CARDIAC: normal RESPIRATORY: normal effort ABDOMEN: soft, non-tender EXTREMITIES: normal SKIN: normal NEUROLOGIC: normal GENITAL: Phallus: severe scarring of the penile shaft; significant woody fibrosis of the corporal tissues throughout the entire shaft, reduced penile elasticity. + mild penile lymphedema Scrotum: absent. Testes in thigh pouches Assessment/Plan: 1. 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 dysfunction - ICD9: 607.84, ICD10: N52.03 (primary diagnosis) 2. History of implantation of penile prosthesis - ICD9: V45.89, ICD10: Z96.89 3. Type 2 diabetes mellitus with other specified complication, without long-term current use of insulin (HCC) - ICD9: 250.80, ICD10: E11.69 4. Hidradenitis suppurativa - ICD9: 705.83, ICD10: L73.2 5. Tobacco abuse - ICD9: 305.1, ICD10: Z72.0 6. Deep vein thrombosis (DVT) of right lower extremity, unspecified chronicity, unspecified vein (HCC) - ICD9: 453.40, ICD10: I82.401 7. Primary hypertension - ICD9: 401.9, ICD10: I10 8. Ischemic cardiomyopathy - ICD9: 414.8, ICD10: I25.5 We had a detailed discussion about his options for penetrative intercourse in light of complex surgical and medical history. In summary he has had 6 total penile prosthesis of which 5/6 been infectedand required explant. Some of these were 2 cylinder but he states he did not have adequate rigidityfor penetration with these. Most recent explant for infection was 2020. He has been counseled previously that further penile prosthesis would not be advised. I reviewed his prior results with him and explained that further malleable prosthesis implantation would not be advisable due to the degree of scarring/known tunical loss/multiple prior infections/continued tobacco use/diabetes, which would complicate the surgery, raise infection risk, risk damaging surrounding structures such as the urethra (which has already been eroded previously), risk poor wound healing and put him at risk of penile glans necrosis. Moreover, he was not able to have penetrative intercourse with his prior devices due to inadequate rigidity even when they were in place. Therefore the risks of this surgery would outweigh the benefit. I also explained that he would not be acandidate for inflatable penile prosthesis due to the prior reasons as well as higher infection risk and absence of a scrotum in which to place the pump mechanism. He was understandably disappointed to hear this however we did talk extensively about another option for penetrative intercourse- the use of external penile prosthesis. A handout with written information was provided on these devices. I explained they do not require a prescription and are not usually covered by insurance so he should explore all the options and choose according to his comfort level. He was encouraged to discuss options with his partner as well. Finally we discussed that there are other ways to be intimate that do not involve penetrative intercourse and if he was amenable, we could also provide a referral to sex therapy to work on this. All questions answered to best of my ability. PLAN External penile prosthesis- information provided Sex therapy Peyton Arellano MD Department of Urology [facility]* Sabine Toribio OCCA - 04/10/2023 1:08 PM EDT Patient BP was high will repeat. [facility] Evaluation note* Encounter Date Diagnosis Assessment Notes Treatment Notes Treatment Clinical Notes Feb, Ischemic cardiomyopathy (ICD-10 - I25.5) This patient is stable without activity related CP, dyspnea or lightheadedness. They are instructed to continue exercise and AHA diet plan. Feb, HFrEF (heart failure with reduced ejection fraction) (ICD-10 - I50.20) Instructed on low salt diet, exercise and daily weights. Instructed to notify office for any unexpected weight gain > 3lbs and/or increased dyspnea, difficulty breathing during sleep, worsening lower extremity swelling, chest pain or lightheadedness. Reviewed GDMT w/ beta blockers, [place]/ARB/ARNI, MRA and SGLT-2 Feb, Type 2 diabetes mellitus with hyperglycemia, without long-term current use of insulin (ICD-10 - E11.65) This patient is following a comprehensive diabetic treatment plan. They are checking their feet daily for calluses and nonhealing ulcers. They are being seen for yearly dilated eye examinations. Goals: SBP less than 130, LDL less than 100, FBS less than 140, AC and A1C less than 7%. They are checking their BS daily, will which are reviewed at the office visit. Continue regular routine monitoring of A1C,] Microalbumin, Dilated eye exam and Foot exam Feb, Permanent atrial fibrillation (ICD-10 - I48.21) This patient is in NSR or rate controlled. This patient is anticoagulated to prevent thromboembolic events. They are maintaining regular scheduled appts with their jig builder helper. No bleeding complications Feb, Simple chronic bronchitis (ICD-10 - J41.0) Avoid irritants, continue triple therapy Feb, Stage 4 chronic kidney disease (ICD-10 - N18.4) The patient is instructed on adequate control of hypertension and diabetes, if appropriate. They are also educated on the associated risks of NSAIDs and PPI use with kidney disease. They were instructed on adequate fluid balance and to avoid dehydration. Feb, CHRISTEN (obstructive sleep apnea) (ICD-10 - G47.33) This patient is aware of the benefits associated with CHRISTEN: With continued use, the patient reduces the risk for NE, CVA, HTN, cardiac dysrhythmias and sudden cardiac deaths.The patient is also aware of the association between CHRISTEN and morning headaches, daytime somnolence, fatigue and obesity Noncompliant [email or web address] Other 04-25-2023 Evaluation + Plan noteExtracted from: Title:- [facility] Author:Renita Miranda Date :11/14/22 Impression and Plan Patient is seen today for their interval coumadin assessment in the [facility]. He is on bilateral DVT's in his legs. He has a pmhx of DVT's, neuropathy, HTN, CVA, CHF, Anemia, Portal vein thrombosis-IVC filter placed, CKD stage 4, and currently receiving iron transfusions for anemia . Following with Nephrology for recent dx of CKD. Pt is followed by . He follows with Dr Baez for Cardiology. Denies any melena, hematochezia, hematuria, gingival bleeding, hematoma's or prolonged epistaxis. Ongoing ETOH use. Encouraged ETOH cessation. . We discussed the patient's coumadin therapy today. --Indication: DVT's --Current coumadin pill being used: as above --Current dose of coumadin: as above --Side effects / complications of coumadin: Denies any problems with the use of coumadin -- denies any gum bleeds, nose bleeds, easy bruising, or other sequelae of coumadin toxicity. --Medication changes since last visit: none --OTC meds / herbal meds used since the last visit: none --Any change in diet since last visits, including vitamin-K rich foods: none --Compliance: no missed doses We also reviewed the patient's risk factors for bleeding using the Outpatient Bleeding Risk Index: 1. 65yo or older: no 2. Hx of GI tract bleeding: no 3. Hx of stroke: yes 4. Serious co-morbid conditions (recent NE, anemia with Hct <30%, CRI with SCr > 1.5, DM): yes Score = 2/4 Risk (low = 0, mod = 1-2, high = 3-4) [facility]02-22-2023 Evaluation note* Encounter Date Diagnosis Assessment Notes Treatment Notes Treatment Clinical Notes Aug, HFrEF (heart failure with reduced ejection fraction) (ICD-10 - I50.20) Continue GDMT. Daily weights w/ extra diuretic if increased > 3lbs. Healthy low salt diet. Aug, Ischemic cardiomyopathy (ICD-10 - I25.5) This patient is stable without activity related CP, dyspnea or lightheadedness. They are instructed to continue exercise and AHA diet plan. Aug, Permanent atrial fibrillation (ICD-10 - I48.21) This patient is rate controlled. This patient is anticoagulated to prevent thromboembolic events. They are maintaining regular scheduled appts with their jig builder helper. Aug, Type 2 diabetes mellitus with hyperglycemia, without long-term current use of insulin (ICD-10 - E11.65) This patient is following a comprehensive diabetic treatment plan. They are checking their feet daily for calluses and nonhealing ulcers. They are being seen for yearly dilated eye examinations. Goals: SBP less than 130, LDL less than 100, FBS less than 140, AC and A1C less than 7%. They are checking their BS daily, will which are reviewed at the office visit. A1C: due Aug, Stage 5 chronic kidney disease not on chronic dialysis (ICD-10 - N18.5) Maintaining off dialysis. Monitor for fluid overload: orthopnea, PND, edema Monitor for uremic symptoms: N/V decreased appetite Aug, Simple chronic bronchitis (ICD-10 - J41.0) Continue triple therapy. Keep up w/ vaccination Aug, Elevated cholesterol (ICD-10 - E78.00) Diet and exercise with continued statin therapy. Aug, CHRISTEN (obstructive sleep apnea) (ICD-10 - G47.33) This patient is aware of the benefits associated with CHRISTEN: With continued use, the patient reduces the risk for NE, CVA, HTN, cardiac dysrhythmias and sudden cardiac deaths.The patient is also aware of the association between CHRISTEN and morning headaches, daytime somnolence, fatigue and obesity Noncompliant Aug, Obesity (BMI 30-39.9) (ICD-10 - E66.9) This patient has been instructed on a low-fat, high-fiber diet. They are instructed to reduce calories, portion sizes and snacks. It is recommended that they exercise for 30 minutes, 3-5 times weekly. [email or web address] Other 02-13-2023 Chief complaint Narrative - Reported* An interactive audio and video telecommunication system which permits real time communications between the patient (at the originating site) and provider (at the distant site) was utilized to providethis telehealth service. * Verbal consent was requested and obtained from HIEN JOHNSON on this date, 09/04/2022 01:30 PM , fora telehealth visit. * [id number] Work Phone: [phone] 494-236501-08-2023 Evaluation note* Encounter Date Diagnosis Assessment Notes Treatment Notes Treatment Clinical Notes Jul, Atrial fibrillation, unspecified type (ICD-10 - I48.91) [email or web address] Other 01-05-2023 Evaluation note* Encounter Date Diagnosis Assessment Notes Treatment Notes Treatment Clinical Notes Jul, Chronic kidney disease, stage IV (severe) (ICD-10 - N18.4) I congratulated this patient on being off dialysis. However I still am concerned that he is CKD 4. He may need to dialysis in the future. Therefore we may need to continue with access work-up. I will wait until after he sees a counseling psychologist and plug when blood work is complete to make this decision. He is still recovering from an infected graft removal of his right upper extremity. We will see patient back in 3 to 4 weeks to see where we are with his need for access. Patient understands agrees this plan all his questions were addressed. [email or web address] Other 12-08-2022 Evaluation note* Encounter Date Diagnosis Assessment Notes Treatment Notes Treatment Clinical Notes Jun, End stage renal disease (ICD-10 - N18.6) Jun, Dependence on renal dialysis (ICD-10 - Z99.2) This patient has recovered well after right arm graft removal. He remains with right IJ hemodialysis catheter which continues to function well. He shows no signs of systemic infection. He has been decreased to hemodialysis only twice a week and has upcoming appointment with his counseling psychologist next week and should find out at that time whether he will or will not require long-term hemodialysis. We will schedule him back in our office in a couple of weeks time to either discuss plans for access going forward or to remove the tunneled hemodialysis catheter if in fact he will not require further hemodialysis. Patient verbalizes standing of all discussion today, agrees this plan, and denies any questions. [email or web address] Other 10-31-2022 Hospital Discharge instructions Patient Education 05/22/2022 18:25:53 Pain Without a Known Cause Pain Without a Known Cause Pain can occur in any part of the body and can range from mild to severe. Sometimes no cause can befound for why you are having pain. Some types of pain that can occur without a known cause include: Headache. Back pain. Abdominal pain. Neck pain. Your health care provider will do tests to try to find the cause of your pain. If no cause is found, your health care provider may diagnose you with pain without a known cause. In some cases, your health care provider may repeat tests and look further for a possible cause. Follow these instructions at home: Managing pain, stiffness, and swelling Take fzku-htc-dkjocdw and prescription medicines only as told by your health care provider. Do not drive or use heavy machinery while taking prescription pain medicine. Stop any activities that cause pain. Rest during periods of severe pain. If directed, put ice on the painful area: ?Put ice in a plastic bag. ?Place a towel between your skin and the bag. ? Leave the ice on for 20 minutes, 2 3 times a day. If directed, apply heat to the affected area. Use the heat source that your health care provider recommends, such as a moist heat pack or a heating pad. ?Place a towel between your skin and the heat source. ?Leave the heat on for 20 30 minutes. ?Remove the heat if your skin turns bright red. This is especially important if you are unable to feel pain, heat, or cold. You may have a greater risk of getting burned. General instructions Reduce your stress with activities such as yoga or meditation. Talk with your health care provider about other ways to reduce stress. Exercise regularly. Ask your health care provider what activities are safe for you. Eat a balanced diet that includes fruits and vegetables, whole grains, lean meat, and low-fat dairy. Talk with your health care provider if you have any questions about your diet. If you are taking prescription pain medicine, take actions to prevent or treat constipation. Your health care provider may recommend that you: ? Drink enough fluid to keep your urine pale yellow. ?Eat foods that are high in fiber, such as fresh fruits and vegetables, whole grains, and beans. ?Limit foods that are high in fat and processed sugars, such as fried and sweet foods. ?Take an nxie-bmy-eykhbln or prescription medicine for constipation. Contact a health care provider if you: Have pain, and no reason can be found for it. Do not get better, even after treatment. Get help right away if: Your pain is making you want to harm yourself. If you ever feel like you may hurt yourself or others, or have thoughts about taking your own life,get help right away. You can go to your nearest emergency department or call: Your local emergency services (911 in the [place] A suicide crisis helpline, such as the National Suicide Prevention Lifeline at . Thisis open 24 hours a day. Summary Pain can occur in any part of the body and can range from mild to severe. Your health care provider will do tests to try to find the cause of your pain. If no cause is found, your health care provider may diagnose you with pain without a known cause. To help your pain, take medicines as told by your health care provider, apply ice or heat, exercise, reduce stress, and eat a healthy diet. This information is not intended to replace advice given to you by your health care provider. Make sure you discuss any questions you have with your health care provider. Document Released: 04/03/2002 Document Revised: 09/04/2019 Document Reviewed: 07/29/2018 [employer] Patient Education 2020 [employer]. 05/22/2022 18:25:53 Dialysis Dialysis Dialysis is a procedure that is done when the kidneys have stopped working properly (kidney failure). It may also be done earlier if it may help improve symptoms. During dialysis, wastes, salt, and extra water are removed from the blood, and the levels of certain minerals in the blood are maintained. Dialysis is done in sessions which are continued until the kidneys get better. If the kidneys cannot get better, such as in end-stage kidney disease, dialysis is continued for life or until you receive a new kidney from a donor (kidney transplant). There are two types of dialysis: hemodialysis and peritoneal dialysis. What is hemodialysis? Hemodialysis is when a machine called a dialyzer is used to filter the blood. Before starting hemodialysis, you will have surgery to create a site where blood can be removed from the body and returned to the body (vascular access). There are three types of vascular accesses: Arteriovenous fistula. This type of access is created when an artery and a vein (usually in the arm) are connected during surgery. The arteriovenous fistula usually takes 1 6 months to develop after surgery. It may last longer than the other types of vascular accesses and is less likely to become infected or cause blood clots. Arteriovenous graft. This type of access is created when an artery and a vein in the arm are connected during surgery with a tube. An arteriovenous graft can usually be used within 2 3 weeks of surgery. A venous catheter. To create this type of access, a thin tube (catheter) is placed in a large vein in your neck, chest, or groin. A venous catheter can be used right away. It is usually used as a temporary access when dialysis needs to begin immediately. During hemodialysis, blood leaves your body through your access site. It travels through a tube to the dialyzer, where it is filtered. The blood then returns to your body through another tube. Hemodialysis is usually done at a hospital or dialysis center three times a week. Visits last about3 5 hours. With special training, it may also be done at home with the help of another person. What is peritoneal dialysis? Peritoneal dialysis is when the thin lining of the abdomen (peritoneum) and a fluid called dialysate are used to filter the blood. Before starting peritoneal dialysis, you will have surgery to place a catheter in your abdomen. The catheter will be used to transfer dialysate to and from your abdomen. At the start of a session, your abdomen is filled with dialysate. During the session, wastes, salt,and extra water in the blood pass through the peritoneum and into the dialysate. The dialysate is drained from the body at the end of the session. The process of filling and draining the dialysate iscalled an exchange. Exchanges are repeated until you have used up all the dialysate for the day. You may do peritoneal dialysis at home or at almost any other location. It is done every day. You may need up to five exchanges a day. Each exchange takes about 30 40 minutes. The amount of time the dialysate is in your body between exchanges is called a dwell. The dwell usually lasts 1.5 3 hours and can vary with each person. You may choose to do exchanges at night while you sleep, using a machine called a cycler. Which type of dialysis should I choose? Both types of dialysis have advantages and disadvantages. Talk with your health care provider aboutwhich type of dialysis is best for you. Your lifestyle, preferences, and medical condition should be considered. In some cases, only one type of dialysis can be chosen. Advantages of hemodialysis It is done less often than peritoneal dialysis. Someone else can do the dialysis for you. If you go to a dialysis center: ?Your health care provider can recognize any problems you may be having. ?You can interact with others who are having dialysis. This can provide you with emotional support. Disadvantages of hemodialysis Hemodialysis may cause cramps and low blood pressure. It may leave you feeling tired on the days you have the treatment. If you go to a dialysis center, you will need to make weekly appointments and work around the center s schedule. You will need to take extra care when traveling. If you usually get treatment in a dialysis center,you will need to arrange to visit a dialysis center near your destination. If you are having treatments at home, you will need to take the dialyzer with you when traveling. There are more eating restrictions than with peritoneal dialysis. Advantages of peritoneal dialysis It is less likely than hemodialysis to cause cramps and low blood pressure. There are fewer eating restrictions than with hemodialysis. You may do exchanges on your own wherever you are, including when you travel. Disadvantages of peritoneal dialysis It is done more often than hemodialysis. Doing peritoneal dialysis requires you to have a good use (dexterity) of your hands. You must also be able to lift bags. You must learn how to make your equipment free of germs (sterilization techniques). You will need to use these techniques every day to prevent infection. What changes will I need to make to my diet during dialysis? Both types of dialysis require you to make some changes to your diet. For example, you will need tolimit your intake of foods that contain a lot of phosphorus and potassium. You will also need to limit your fluid intake. A diet and nutrition teacher (dietitian) can help you make a meal plan that can help improve your dialysis and your health. What should I expect when starting dialysis? Adjusting to the dialysis treatment, schedule, and diet can take some time. You may need to stop working and may not be able to do some of your normal activities. You may feel anxious or depressed when starting dialysis. Over time, many people feel better overall because of dialysis. You may be able to return to work after making some changes, such as reducing work intensity. Where to find more information National Kidney Foundation: www.kidney.org [place] Association of Kidney Patients: www.aakp.org [place] Kidney Fund: www.kidneyfund.org Summary During dialysis, wastes, salt, and extra water are removed from the blood, and the levels of certain minerals in the blood are maintained. There are two types of dialysis: hemodialysis and peritonealdialysis. Hemodialysis is when a machine called a dialyzer is used to filter the blood. Hemodialysis is usually done by a health care provider at a hospital or dialysis center three timesa week. Peritoneal dialysis is when the peritoneum is used as a filter. You may do peritoneal dialysis at home or at almost any other location. Both types of dialysis have advantages and disadvantages. Talk with your health care provider aboutwhich type of dialysis is best for you. This information is not intended to replace advice given to you by your health care provider. Make sure you discuss any questions you have with your health care provider. Document Released: 09/29/2003 Document Revised: 11/25/2019 Document Reviewed: 09/04/2017 [employer] Patient Education 2020 [employer]. Follow Up Care 05/22/2022 10:23:21 With:RICARDA AL Address: [address] [place] [id number] [facility] (1) When:1 to 2 days With:Call the dialysis center first thing in the morning as Dr. Julio wants dialysis done on Sunday. Address:Unknown When: Unknown [facility]10-31-2022 Evaluation + Plan noteExtracted from: Title:ED Note Author:Jose Iqbal MD Date:05/22 1. Right flank pain (R10.9: Unspecified abdominal pain) Orders: acetaminophen-oxycodone, 1 tab(s), Tab, Oral, Once, Stop date 05/22/22 17:16:00 EDT, STAT, Start date 05/22/22 17:16:00 EDT acetaminophen-oxycodone, 1 tab(s), Oral, q4hr as needed for pain, 15 tab(s), Refill(s) 0, Take one tab by mouth every four hours as needed for pain morphine, 2 mg = 1 mL, Injection, IV Push, Once, Stop date 05/22/22 14:37:00 EDT, STAT, Start date 05/22/22 14:37:00 EDT, 05/22/22 14:37:00 EDT morphine, 4 mg = 2 mL, Injection, IV Push, Once, Stop date 05/22/22 10:53:00 EDT, STAT, Start date 05/22/22 10:53:00 EDT, 05/22/22 10:53:00 EDT morphine, 2 mg = 1 mL, Injection, IV Push, Once, Stop date 05/22/22 11:40:00 EDT, STAT, Start date 05/22/22 11:40:00 EDT, 05/22/22 11:40:00 EDT morphine, Injection, Misc, Once, Stop date 05/22/22 11:49:50 EDT, Physician Stop, 05/22/22 11:49:50 EDT morphine, Injection, Misc, Once, Stop date 05/22/22 13:24:55 EDT, Physician Stop, 05/22/22 13:24:55 EDT ondansetron, 4 mg = 2 mL, Injection, IV Push, Once, Stop date 05/22/22 10:53:00 EDT, STAT, Start date 05/22/22 10:53:00 EDT, 05/22/22 10:53:00 EDT Sodium Chloride 0.9% intravenous solution 1,000 mL, 1,000 mL, IV, 20 mL/hr, STAT, Start date 05/22/22 10:53:00 EDT, 50 hour(s), Total volume (mL): 1,000, 95 kg, 2.2, m2 Automated Diff Basic Metabolic Panel Bladder Scan C-Reactive Protein CBC w/ Auto Diff CT Abdomen/Pelvis w/ Contrast CT Abdomen/Pelvis w/o Contrast eGFR Hepatic Function Panel Lipase Level Morphology UA With Cult Reflex Urinary Catheter Insertion Future Scheduled Tests Laboratory* PT 08/21/21 * PT 09/19/21 * PT 10/19/21 * PT 11/19/21 * PT 12/19/21 [facility]20[facility] Evaluation note* Encounter Date Diagnosis Assessment Notes Treatment Notes Treatment Clinical Notes Apr, Infection of AV graft for dialysis (ICD-10 - T82.7XXA) The patient is doing well after graft removal. Patient states that he might get off dialysis soon. Therefore at this time we will continue using the tunneled catheter. If the patient needs to remain on dialysis then we will need to consider alternative means of dialysis. The patient obviously does not do well with PTFE graft material we may need to consider bovine carotid for the next graft. I will see the patient back in 6 weeks and hopefully we will have a decision from his counseling psychologist with regards to the need for continued dialysis. Patient understands agrees the plan all his questions were addressed.Enoc removed from the right arm today as well as a stitch in the right neck. [email or web address] Other 10-07-2022 History of Present illness Narrative* Rasheed Zhang MD - 04/28/2022 1:49 PM EDT Images from the original note were not included. EMERGENCY TRIAGE, TREAT AND TRANSPORT (ET3) DOCUMENTATION OF TELEHEALTH VISIT Date / Time: 04/28/2022 / 1199 Name: Hien Johnson : 1960 SSN: [id number] EMS Agency: [facility] [x] Verbal consent obtained [] Implied consent - patient with potential emergency medical condition requiring assessment of capacity to refuse treatment and/or transport VITAL SIGNS: see flowsheet documentation Reason for Telehealth Visit: Chief Complaint Patient presents with Fall History of Present Ilness: Pleasant 61 year old male , walking in to dialysis, trip at door threshold , sliding down on his left hip area, slowing fall with using his cane. Denies hitting head. No LOC. Did not land on any outstretched hand. Denies pain or injury from fall. Otherwise in normal state of health today and feeling at his baseline. No other complaints. Additional pertinent PMHx, SocHx, FamHx: Pmhx: renal failure, on HD, CAD, DVT, on coumadin Review of Systems: Denies the following: Headache, neck pain, back pain, dizziness, lightheadedness, chest pain, cough, difficulty breathing, fever, nausea/vomiting, dysuria, leg pain or swelling, weakness. No recent falls or injury. Exam: General: Awake, no distress, able to ambulate without difficulty after fall. ENT: normocephalic, atraumatic Pulmonary: No respiratory distress Cardiovascular: Well perfused Neurologic: Oriented to person, place, time and events. Moving all extremities equally. Psychiatric: Appropriate. Good insight and judgement. Skin: EMS inspected left hip area and no abrasion/hematoma/ecchymosis noted. Medical Decision Making: Pleasant 61 year old male with fall. Does not appear to have any acute injury and is without complaints. Pt does not need any ED eval at this time. Pt cleared to continue HD today. Pt advised on tylenol prn pain, avoid asa/ibuprofen. Advised to use ice packs for discomfort. Advised to call back if any hematoma develops that is expanding or causing significant pain. No further questions or request from patient or ems crew. Disposition Supported by Telehealth Assessment: ET3 transport decisions: Treat in place EMS Disposition Reported: Same ET3 Encounter Completed by: Rasheed Zhang MD documented in this [id number] Evaluation note* Encounter Date Diagnosis Assessment Notes Treatment Notes Treatment Clinical Notes Feb, CKD (chronic kidney disease) stage 4, GFR 15-29 ml/min (ICD-10 - N18.4) This patient continues to do well after right arm AV graft placement. He is not currently on hemodialysis and follows closely with nephrology specialist Dr. Wallis every couple months. We will continue to follow him along and see him again in a couple of months with graft studies. He is encouraged to continue arm elevation and hand exercises as discussed. He tells me he gets plenty of that as he does go fishing all the time. He is encouraged on use of tennis ball or stress ball as well. We will see him back in a couple of months, he knows to call us in the meantime with any issues or questions. If he were to require hemodialysis prior to her next scheduled appointment, he knows to call us to return for evaluation prior to any attempts of cannulation. He verbalizes understanding of all discussion, agrees this plan, and denies any questions. [email or web address] Other 08-15-2022 Evaluation note* Encounter Date Diagnosis Assessment Notes Treatment Notes Treatment Clinical Notes Feb, CKD (chronic kidney disease) stage 4, GFR 15-29 ml/min (ICD-10 - N18.4) He has CKD due to longstanding diabetic nephropathy hypertensive nephrosclerosis. His baseline serum creatinine is 3.5-4 mg/dL. I discussed with the importance of good HTN and DM control to slow down progression of CKD. He is interested in hemodialysis. He has AVG and is maturing. I also provide information about the transplant center and advised him to contact them. I have advised him to take low potassium diet Feb, Diabetes mellitus wi th chronic kidney disease (ICD-10 - E11.22) He is currently on diet control. He is not on [place] or ARB due to the advanced CKD and hyperkalemia. 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 Continue Bumex. I have advised him to restrict her fluid intake 50 ounces a day. I have advised him to monitor his weight at home if he gains more than 2 pounds in 24 hours or 5 pounds in a week he should call our office. Continue current dose of Bumex Feb, Anemia of renal dise ase (ICD-10 - D63.1) His hemoglobin is within the goal. Continue oral iron Feb, Secondary hyperparathyroidism (ICD-10 - N25.81) He has a secondary hyperparathyroidism due to CKD and hypocalcemia. Continue oral calcitriol. I will advise him to comply with it. Feb, Kidney lesion (ICD-1 0 - N28.9) His renal ultrasound showed right kidney lesion possibly cyst and right adrenal nodule. Feb, Proteinuria (ICD-10 - R80.9) He has a proteinuria likely due to the diabetic nephropathy. Not on ALB[place] or ARB due to the advanced CKD. Feb, Adrenal nodule (ICD- 10 - E27.8) He possibly has a right adrenal nodule. I have advised him to continue to follow with Dr. Mulligan. Feb, Metabolic acidosis (ICD-10 - E87.2) He has a metabolic acidosis due to the advanced CKD. Continue oral sodium bicarbonate Feb, Hyperkalemia (ICD-10 - E87.5) He has hyperkalemia due to the advanced CKD and dietary noncompliance. Continue Lokelma and low potassium diet. I advised him to comply with the diet. [email or web address] Other 07-14-2022 Evaluation note* Encounter Date Diagnosis Assessment Notes Treatment Notes Treatment Clinical Notes Jan, Hemodialysis access, AV graft (ICD-10 - Z99.2) He the patient is doing well after surgery. I did reassure the patient that his discomfort should continue to improve over the next few weeks. I did suggest elevation and ice. Of also recommended washing the wound daily with warm soapy water and then applying bacitracin and a wound cover. We should see him back in 2 to 4 weeks for wound check. In the meantime I did call and ask him to call me if it were to get any worse. He agreed to do so. Once the wound is completely healed we will start using the graft for dialysis. All his questions were addressed he understands agrees the plan. [email or web address] Other 06-16-2022 Evaluation note* Encounter Date Diagnosis Assessment Notes Treatment Notes Treatment Clinical Notes Dec, CKD (chronic kidney disease) stage 4, GFR 15-29 ml/min (ICD-10 - N18.4) He has CKD due to longstanding diabetic nephropathy hypertensive nephrosclerosis. His baseline serum creatinine is 3.5-4 mg/dL. I discussed with the importance of good HTN and DM control to slow down progression of CKD.I explained to him the potential need of SUPERVISOR SAMPLE PREPARATION in the future. I discussed with him different options of SUPERVISOR SAMPLE PREPARATION including transplant, PD and HD. He is interested in hemodialysis. I have referred him to the vascular surgery for AV fistula creation. I also provide information about the transplant center and advised him to contact them. 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 He is not on [place] or ARB due to the advanced CKD and hyperkalemia. Dec, Carroll hy kid w cr kid I-IV (ICD-10 - I12.9) Blood pressure is controlled. He appears to be euvolemic. I have advised him to monitor his weight at home if he gains more than 2 pounds in 24 hours or 5 pounds in a week he should call our office. Continue current dose of Bumex Dec, Anemia of renal dise ase (ICD-10 - D63.1) His hemoglobin is within the goal. Continue oral iron Dec, Secondary hyperparathyroidism (ICD-10 - N25.81) He has a secondary hyperparathyroidism due to CKD and hypocalcemia. Continue oral calcitriol. I will advise him to comply with it. Dec, Kidney lesion (ICD-1 0 - N28.9) His renal ultrasound showed right kidney lesion possibly cyst and right adrenal nodule. Dec, Proteinuria (ICD-10 - R80.9) He has a proteinuria likely due to the diabetic nephropathy. Not on ALB[place] or ARB due to the advanced CKD. Dec, Adrenal nodule (ICD- 10 - E27.8) He possibly has a right adrenal nodule. I have advised him to continue to follow with Dr. Mulligan. Dec, Metabolic acidosis (ICD-10 - E87.2) He has a metabolic acidosis due to the advanced CKD. Continue oral sodium bicarbonate Dec, Hyperkalemia (ICD-10 - E87.5) He has hyperkalemia due to the advanced CKD and dietary noncompliance. Continue Lokelma and low potassium diet. I advised him to comply with the diet. [email or web address] Other 06-08-2022 Evaluation note* Encounter Date Diagnosis Assessment Notes Treatment Notes Treatment Clinical Notes Dec, Chronic renal disease, stage IV (ICD-10 - N18.4) I went over hemodialysis handout with this patient today. We discussed dialysis access and hemodialysis. He is right-handed. We reviewed the vein mapping results with the patient today in the office. Despite the fact that he is right-handed, I am recommending a right upper extremity brachiocephalic AV fistula. The cephalic vein is best in his right arm. I explained to the patient that we usually try and utilize the nondominant arm. However in this case I think it is more important to have a good well-functioning fistula. I explained the risks and benefits as well as medical surgical alternatives he understands and wishes to proceed all his questions were addressed. We will plan on using the right upper extremity despite this being his dominant arm. Hopefully we can have a regional block with MAC local anesthesia. [email or web address] Other 06-08-2022 Evaluation note* Encounter Date Diagnosis Assessment Notes Treatment Notes Treatment Clinical Notes Dec, CKD (chronic kidney disease) stage 4, GFR 15-29 ml/min (ICD-10 - N18.4) [email or web address] Other 04-25-2022 Evaluation note* Encounter Date Diagnosis Assessment Notes Treatment Notes Treatment Clinical Notes Oct, CKD (chronic kidney disease) stage 4, GFR 15-29 ml/min (ICD-10 - N18.4) Oct, Anemia of renal disease (ICD-10 - D63.1) [email or web address] Other 04-20-2022 Evaluation note* Encounter Date Diagnosis Assessment Notes Treatment Notes Treatment Clinical Notes Oct, CKD (chronic kidney disease) stage 4, GFR 15-29 ml/min (ICD-10 - N18.4) He has CKD due to longstanding diabetic nephropathy hypertensive nephrosclerosis. His baseline serum creatinine is 3.5-4 mg/dL. I discussed with the importance of good HTN and DM control to slow down progression of CKD.I explained to him the potential need of SUPERVISOR SAMPLE PREPARATION in the future. I discussed with him different options of SUPERVISOR SAMPLE PREPARATION including transplant, PD and HD. He is interested in hemodialysis. I have referred him to the vascular surgery for AV fistula creation. I also provide information about the transplant center and advised him to contact them. 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 He is not on [place] or ARB due to the advanced CKD and hyperkalemia. Oct, Carroll hy kid w cr kid I-IV (ICD-10 - I12.9) Blood pressure is controlled. He appears to be euvolemic. I have advised him to monitor his weight at home if he gains more than 2 pounds in 24 hours or 5 pounds in a week he should call our office. Continue current dose of Lasix 80 mg daily. Oct, Anemia of renal dise ase (ICD-10 - D63.1) His hemoglobin is below the goal. He has low iron stores. I have ordered the IV iron infusion. He has not been taking oral iron. Advised to comply with oral iron. Will refer to him to GI in future for work-up. Oct, Secondary hyperparathyroidism (ICD-10 - N25.81) He has a secondary hyperparathyroidism due to CKD and hypocalcemia. I will prescribe oral calcitriol. I will advise him to comply with it. Oct, Kidney lesion (ICD-1 0 - N28.9) His renal ultrasound showed right kidney lesion possibly cyst and right adrenal nodule. Oct, Proteinuria (ICD-10 - R80.9) He has a proteinuria likely due to the diabetic nephropathy. Not on ALBANIA or ARB due to the advanced CKD. Oct, Adrenal nodule (ICD- 10 - E27.8) He possibly has a right adrenal nodule. I have advised him to continue to follow with Dr. Mulligan. Oct, Metabolic acidosis (ICD-10 - E87.2) He has a metabolic acidosis due to the advanced CKD. Continue oral sodium bicarbonate Oct, Hyperkalemia (ICD-10 - E87.5) He has hyperkalemia due to the advanced CKD and dietary noncompliance. I I have refilled the prescription for [employer] Other 01-30-2022 Evaluation + Plan note Future Scheduled Tests Laboratory* PT 08/21/21 * PT 09/19/21 * PT 10/19/21 * PT 11/19/21 * PT 12/19/21 [facility]01-04-2022 Evaluation + Plan noteExtracted from: Title:- [facility] Author:Renita Miranda Date :07/26/21 Impression and Plan Patient is seen today for their interval coumadin assessment in the [facility]. He is on bilateral DVT's in his legs. He has a pmhx of DVT's, neuropathy, HTN, CVA, CHF, Anemia, Portal vein thrombosis-IVC filter placed, CKD stage 4, and currently receiving iron transfusions for anemia . Following with Nephrology for recent dx of CKD. Pt is followed by . He follows with Dr Baez for Cardiology. Denies any melena, hematochezia, hematuria, gingival bleeding, hematoma's or prolonged epistaxis. Ongoing ETOH use. Encouraged ETOH cessation. Is going [place] for the winter, given orders for lab draws for OSH. We discussed the patient's coumadin therapy today. --Indication: DVT's --Current coumadin pill being used: as above --Current dose of coumadin: as above --Side effects / complications of coumadin: Denies any problems with the use of coumadin -- denies any gum bleeds, nose bleeds, easy bruising, or other sequelae of coumadin toxicity. --Medication changes since last visit: none --OTC meds / herbal meds used since the last visit: none --Any change in diet since last visits, including vitamin-K rich foods: none --Compliance: no missed doses We also reviewed the patient's risk factors for bleeding using the Outpatient Bleeding Risk Index: 1. 65yo or older: no 2. Hx of GI tract bleeding: no 3. Hx of stroke: yes 4. Serious co-morbid conditions (recent NE, anemia with Hct <30%, CRI with SCr > 1.5, DM): yes Score = 2/4 Risk (low = 0, mod = 1-2, high = 3-4) Future Scheduled Tests Laboratory* PT 08/21/21 * PT 09/19/21 * PT 10/19/21 * PT 11/19/21 * PT 12/19/21 [facility] Evaluation note* Encounter Date Diagnosis Assessment Notes Treatment Notes Treatment Clinical Notes Apr, CKD (chronic kidney disease) stage 4, GFR 15-29 ml/min (ICD-10 - N18.4) He has CKD due to longstanding diabetic nephropathy hypertensive nephrosclerosis. His baseline serum creatinine is 4mg/dL. His renal function has declined due to the progression of CKD. I discussed with the importance of good HTN and DM control to slow down progression of CKD.I explained to him the potential need of SUPERVISOR SAMPLE PREPARATION in the future. I discussed with him different options of SUPERVISOR SAMPLE PREPARATION including transplant, PD and HD. He is interested in hemodialysis. He would like to discuss with his before vascular referral. I also provide information about the transplant center and advised him to contact them. 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 He is not on [place] or ARB due to the advanced CKD and hyperkalemia. Apr, Carroll hy kid w cr kid I-IV (ICD-10 - I12.9) Blood pressure is controlled. He appears to be euvolemic. I have advised him to monitor his weight at home if he gains more than 2 pounds in 24 hours or 5 pounds in a week he should call our office. Continue current dose of Lasix 80 mg daily. Apr, Anemia of renal dise ase (ICD-10 - D63.1) His hemoglobin is within the goal. He has low iron stores. No need for LAST. He has not been taking oral iron. Advised to comply with oral iron. Apr, Secondary hyperparathyroidism (ICD-10 - N25.81) He has a secondary hyperparathyroidism due to CKD and was prescribed calcitriol. He has not been taking it. Apr, Kidney lesion (ICD-1 0 - N28.9) His renal ultrasound showed right kidney lesion possibly cyst and right adrenal nodule. Apr, Proteinuria (ICD-10 - R80.9) He has a proteinuria likely due to the diabetic nephropathy. Not on ALB[place] or ARB due to the advanced CKD. Apr, Adrenal nodule (ICD- 10 - E27.8) He possibly has a right adrenal nodule. I discussed with him endocrine referral and he agrees for it. Will refer to Dr. Mulligan. Apr, Metabolic acidosis (ICD-10 - E87.2) He has a metabolic acidosis due to the advanced CKD. Continue oral sodium bicarbonate Apr, Hyperkalemia (ICD-10 - E87.5) He has hyperkalemia due to the advanced CKD and dietary noncompliance. I will prescribe oral Lokelma. [email or web address] Other 10-10-2021 History of Present illness Narrative* 60 year old male with complex prosthetic history, presenting for POV. Patient underwent removal of penile prosthesis, wound irrigation, Mar drain placement, and Aponte catheter placement on 05/01/2021, performed by Dr. Lonnie Hardwick. * In recap: * Pt with extensive urologic surgery. H/o hidradenitis s/p scrotal skin excision and bilateral scrotal thigh pouches. * Most recent implants included an explant of right SRPP, washout and placement of AMS spectra 9.5mm x 16cm with 2cm rear-tip on 03/20/17. Pt healed well but reports that he is unable to have penetrative intercourse due to lack of rigidity. Pt had removal of SRPP and replacement of AMS Tactra 11mm x 21cm (R) 21.5 (L) with standard rear tips as well as penoplasty due to excessive penile skin on 09.26.19. * Pt underwent excision of genital skin with Dartos Flap Advancement on 03/26/2020. * Pt found to have infection and taken to the OR on 07/02/20. Found to have erosion of left cylinder into the urethra and infection. Pt had explant of his implant and cystoscopy with Aponte placement. * Patient underwent a malleable penile implant placement and corporal excavation on 01/20/2021, performed by Dr. Lonnie Hardwick. Placed AMS Tacta 9.5mm cut to size with standard rear tip. * Patient was seen 04/26/2021. Reported that he had been experiencing significant pain and drainage associated with the implant. * Patient underwent removal of penile prosthesis, wound irrigation, Mar drain placement, and Aponte catheter placement on 05/01/2021, performed by Dr. Lonnie Hardwick. * Patient presents today for a POV and stitch removal. Been doing [facility] Work Phone: [phone]) 794-987707-01-2021 History of Present illness Narrative* 60 year old male with complex prosthetic history, presenting for follow up. Patient underwent a malleable penile implant placement and corporal excavation (22 modifier) on 01/20/2021, performed by Dr. Lonnie Hardwick. Placed AMS Tacta 9.5mm cut to size with standard rear tip. * In recap: * Pt with extensive urologic surgery. H/o hidradenitis s/p scrotal skin excision and bilateral scrotal thigh pouches. * Most recent implants included an explant of right SRPP, washout and placement of AMS spectra 9.5mm x 16cm with 2cm rear-tip on 03/20/17. Pt healed well but reports that he is unable to have penetrative intercourse due to lack of rigidity. Pt had removal of SRPP and replacement of AMS Tactra 11mm x 21cm (R) 21.5 (L) with standard rear tips as well as penoplasty due to excessive penile skin on 09.26.19. * Pt underwent excision of genital skin with Dartos Flap Advancement on 03/26/2020. * Pt found to have infection and taken to the OR on 07/02/20. Found to have erosion of left cylinder into the urethra and infection. Pt had explant of his implant and cystoscopy with Aponte placement. * Patient underwent a malleable penile implant placement and corporal excavation on 01/20/2021, performed by Dr. Lonnie Hardwick. Placed AMS Tacta 9.5mm cut to size with standard rear tip. * Patient was last seen 02/04/2021 for POV. Reported that he had been urinating well. He noted some pain around the stitches, but stated that it did not feel infected. Had been taking oxycodone for pain; stated that Tylenol does nothing . Denied fevers or chills. * The patient reports today that he has been doing well. Has not attempted to use his implant yet. [facility] Work Phone: [phone]) [phone] History of Past illness Narrative* Problem Noted Date Diagnosed Date Resolved Date Corneal thinning of both eyes 01/17/2018 01/14/2020 Overview: Related to Rheumatoid Arthritis, possibly PUK (Peripheral Ulcerative Keratitis) Post-op pain 03/04/2015 02/11/2020 Overview: A/P: c/o pain in right groin with movement. Discontinue morphine. Starting percocet 1-2 tablets [id number] PRN moderate to severe pain and dilaudid 0.3mg for [id number] PRN for breakthrough Pain controlled with oral meds prior to discharge documented as of this encounter (statuses as of 04/11/2023) [facility]06-[facility] History of Past illness Narrative* Problem Noted Date Diagnosed Date Resolved Date Corneal thinning of both eyes 01/17/2018 01/14/2020 Overview: Related to Rheumatoid Arthritis, possibly PUK (Peripheral Ulcerative Keratitis) Post-op pain 03/04/2015 02/11/2020 Overview: A/P: c/o pain in right groin with movement. Discontinue morphine. Starting percocet 1-2 tablets [id number] PRN moderate to severe pain and dilaudid 0.3mg for [id number] PRN for breakthrough Pain controlled with oral meds prior to discharge documented as of this encounter (statuses as of 09/03/2023) [facility]06[facility]2018 History of Past illness Narrative* Problem Noted Date Diagnosed Date Resolved Date Corneal thinning of both eyes 01/17/2018 01/14/2020 Overview: Related to Rheumatoid Arthritis, possibly PUK (Peripheral Ulcerative Keratitis) Post-op pain 03/04/2015 02/11/2020 Overview: A/P: c/o pain in right groin with movement. Discontinue morphine. Starting percocet 1-2 tablets [id number] PRN moderate to severe pain and dilaudid 0.3mg for [id number] PRN for breakthrough Pain controlled with oral meds prior to discharge documented as of this encounter (statuses as of 09/04/2023) [facility] History of Past illness Narrative* Problem Noted Date Diagnosed Date Resolved Date Corneal thinning of both eyes 01/17/2018 01/14/2020 Overview: Related to Rheumatoid Arthritis, possibly PUK (Peripheral Ulcerative Keratitis) Post-op pain 03/04/2015 02/11/2020 Overview: A/P: c/o pain in right groin with movement. Discontinue morphine. Starting percocet 1-2 tablets [id number] PRN moderate to severe pain and dilaudid 0.3mg for Q5oocpo PRN for breakthrough Pain controlled with oral meds prior to discharge documented as of this encounter (statuses as of 09/12/2023) [facility] History of Past illness Narrative* Problem Noted Date Diagnosed Date Resolved Date Corneal thinning of both eyes 01/17/2018 01/14/2020 Overview: Related to Rheumatoid Arthritis, possibly PUK (Peripheral Ulcerative Keratitis) Post-op pain 03/04/2015 02/11/2020 Overview: A/P: c/o pain in right groin with movement. Discontinue morphine. Starting percocet 1-2 tablets [id number] PRN moderate to severe pain and dilaudid 0.3mg for P3ntlni PRN for breakthrough Pain controlled with oral meds prior to discharge documented as of this encounter (statuses as of 09/27/2023) [facility] History of Past illness Narrative* Problem Noted Date Diagnosed Date Resolved Date Corneal thinning of both eyes 01/17/2018 01/14/2020 Overview: Related to Rheumatoid Arthritis, possibly PUK (Peripheral Ulcerative Keratitis) Post-op pain 03/04/2015 02/11/2020 Overview: A/P: c/o pain in right groin with movement. Discontinue morphine. Starting percocet 1-2 tablets [id number] PRN moderate to severe pain and dilaudid 0.3mg for Y9lcpqg PRN for breakthrough Pain controlled with oral meds prior to discharge documented as of this encounter (statuses as of 09/27/2023) [facility] History of Past illness Narrative* Problem Noted Date Diagnosed Date Resolved Date Corneal thinning of both eyes 01/17/2018 01/14/2020 Overview: Related to Rheumatoid Arthritis, possibly PUK (Peripheral Ulcerative Keratitis) Post-op pain 03/04/2015 02/11/2020 Overview: A/P: c/o pain in right groin with movement. Discontinue morphine. Starting percocet 1-2 tablets [id number] PRN moderate to severe pain and dilaudid 0.3mg for W8ltspq PRN for breakthrough Pain controlled with oral meds prior to discharge documented as of this encounter (statuses as of 09/27/2023) [facility] History of Past illness Narrative* Problem Noted Date Diagnosed Date Resolved Date Corneal thinning of both eyes 01/17/2018 01/14/2020 Overview: Related to Rheumatoid Arthritis, possibly PUK (Peripheral Ulcerative Keratitis) Post-op pain 03/04/2015 02/11/2020 Overview: A/P: c/o pain in right groin with movement. Discontinue morphine. Starting percocet 1-2 tablets [id number] PRN moderate to severe pain and dilaudid 0.3mg for D7zmykc PRN for breakthrough Pain controlled with oral meds prior to discharge documented as of this encounter (statuses as of 10/04/2023) [facility] History of Past illness Narrative* Problem Noted Date Diagnosed Date Resolved Date Corneal thinning of both eyes 01/17/2018 01/14/2020 Overview: Related to Rheumatoid Arthritis, possibly PUK (Peripheral Ulcerative Keratitis) Post-op pain 03/04/2015 02/11/2020 Overview: A/P: c/o pain in right groin with movement. Discontinue morphine. Starting percocet 1-2 tablets N3fhzfi PRN moderate to severe pain and dilaudid 0.3mg for V8pzgmo PRN for breakthrough Pain controlled with oral meds prior to discharge documented as of this encounter (statuses as of 10/23/2023) [facility] History of Present illness Narrative* 60 year old male with complex prosthetic history, presenting POV. * In recap: * Pt with extensive urologic surgery. H/o hidradenitis s/p scrotal skin excision and bilateral scrotal thigh pouches. * Most recent implants included an explant of right SRPP, washout and placement of AMS spectra 9.5mm x 16cm with 2cm rear-tip on 03/20/17. Pt healed well but reports that he is unable to have penetrative intercourse due to lack of rigidity. Pt had removal of SRPP and replacement of AMS Tactra 11mm x 21cm (R) 21.5 (L) with standard rear tips as well as penoplasty due to excessive penile skin on 09.26.19. * Pt had Excision of genital skin with [employer] on 03/26/2020. * Pt found to have infection and taken to the OR on 07/02/20. Found to have erosion of left cylinder into the urethra and infection. Pt had explant of his implant and cystoscopy with Aponte placement. * Patient underwent a malleable penile implant placement and corporal excavation on 01/20/2021, performed by Dr. Lonnie Hardwick. Placed AMS Tacta 9.5mm cut to size with standard rear tip * Patient reports today that he has been urinating well. He notes some pain around the stitches, but states that it does not feel infected. Has been taking oxycodone for pain; states that Tylelol doesnothing . Denies fevers or chills. [facility] Work Phone: Evaluation + Plan note Future Appointments Appointment Date:04/11/2022 10:45:00 AM Scheduled Provider: Location:.[facility] Appointment Type:Anticoagulation Follow Up 15 (FT) Future Scheduled Tests Laboratory* PT 08/21/21 * PT 09/19/21 * PT 10/19/21 * PT 11/19/21 * [facility] Future Appointments Appointment Date:09/22/2022 10:15:00 AM Scheduled Provider: Location:.[facility] Appointment Type:Anticoagulation Follow Up 15 (FT) Diagnostic Tests Pending * PTH Intact 09/18/22 Future Scheduled Tests Laboratory* PT 09/19/21 * PT 10/19/21 * PT 11/19/21 * PT 12/19/21 [facility] noteNo InformationNofre[facility] NoteWagon Other Evaluation note* Diagnosis Onset Date Resolution Status Acute kidney injury superimp osed on chronic kidney disease acute Acute on chronic systolic (congestive) heart failure acute Anemia of renal disease acut e CKD (chronic kidney disease) stage 4, GFR 15-29 ml/min acute [id number] acute Iron deficiency anemia acute Metabolic acidosis acute 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 [employer] [facility] Work Phone: Evaluation noteNo assessment information available [facility] Work Phone: Evaluation note* Diagnosis Fall (on) (from) other stairs and steps, initial encounter- Primary [facility] Diagnosis 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 dysfunction- Primary Impotence of organic origin History of implantation of penile prosthesis Type 2 diabetes mellitus with other specified complication, without long-term current use of insulin (HCC) Hidradenitis suppurativa Hidradenitis Tobacco abuse Tobacco use disorder Deep vein thrombosis (DVT) of right lower extremity, unspecified chronicity, unspecified vein (HCC) Primary hypertension Unspecified essential hypertension Ischemic cardiomyopathy Other specified forms of chronic ischemic heart disease Dependence on renal dialysis (HCC) Renal dialysis status Morbid obesity (HCC) Morbid obesity [facility] Diagnosis 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 Type II or unspecified type diabetes mellitus with neurological manifestations, not stated as uncontrolled Onychomycosis Dermatophytosis of nail Pain in left toe(s) Pain in right toe(s) [facility] Dilated cardiomyopathy (CMS/HCC)- Primary Other primary cardiomyopathies Abnormal electrocardiogram Nonspecific abnormal electrocardiogram (ECG) (EKG) Primary hypertension Unspecified essential hypertension Mixed hyperlipidemia Hypertensive heart and chronic kidney disease without heart failure, with stage 1 through stage 4 chronic kidney disease, or unspecified chronic kidney disease Angina, class II (CMS/HCC) Other and unspecified angina pectoris Two-vessel coronary artery disease BMI 34.0-34.9,adult History of TIA (transient ischemic attack) Dyspnea, unspecified type documented in this encounter [facility] Work Phone: Evaluation note* Diagnosis Nuclear sclerotic cataract of both eyes- Primary Senile nuclear sclerosis Nuclear sclerosis, right [facility] Diagnosis Preop examination- Primary Preoperative examination, unspecified Nuclear sclerosis, right History of CVA (cerebrovascular accident) without residual deficits Transient ischemic attack (TIA), and cerebral infarction without residual deficits History of TIA (transient ischemic attack) Transient ischemic attack (TIA), and cerebral infarction without residual deficits Ischemic cardiomyopathy Other specified forms of chronic ischemic heart disease Chronic systolic (congestive) heart failure (HCC) Hypertension, unspecified type Chronic atrial fibrillation, unspecified (HCC) Chronic obstructive pulmonary disease, unspecified COPD type (HCC) Portal hypertension (HCC) Portal hypertension Non-insulin dependent type 2 diabetes mellitus (HCC) Type II or unspecified type diabetes mellitus without mention of complication, not stated as uncontrolled Personal history of nicotine dependence Personal history of tobacco use, presenting hazards to health Chronic renal failure, stage 4 (severe) (HCC) Nuclear sclerosis, right [facility] Diagnosis Pseudophakia- Primary Lens replaced by other means [facility]* Diagnosis Red eye- Primary Redness or discharge of eye Eye pain, right documented in this encounter [facility]* Diagnosis Abrasion of left cornea, initial encounter- Primary documented in this encounter [facility]* Diagnosis Pseudophakia- Primary Lens replaced by other means Interstitial keratitis of both eyes Interstitial keratitis, unspecified Epiretinal membrane (ERM) of both eyes [facility]* Diagnosis Interstitial keratitis of both eyes- Primary Interstitial keratitis, unspecified Pseudophakia Lens replaced by other means documented in this encounter [facility]* Diagnosis Onset Date Resolution Status Chronic HFrEF (heart failure with reduced ejection fraction) acute Chronic venous insufficiency of lower extremity acute CKD (chronic kidney disease) acute Hypercoagulable state acute [id number] acute Ischemic cardiomyopathy [facility] Work Phone: Evaluation note* Diagnosis Interstitial keratitis of both eyes- Primary Interstitial keratitis, unspecified documented in this encounter [facility]* Diagnosis Angina, class II (CMS-HCC)- Primary Other and unspecified angina pectoris Dilated cardiomyopathy (Multi) Other primary cardiomyopathies Primary hypertension Unspecified essential hypertension Two-vessel coronary artery disease Abnormal electrocardiogram Nonspecific abnormal electrocardiogram (ECG) (EKG) Mixed hyperlipidemia Hypertensive heart and chronic kidney disease without heart failure, with stage 1 through stage 4 chronic kidney disease, or unspecified chronic kidney disease Ischemic cardiomyopathy Other specified forms of chronic ischemic heart disease Chronic deep vein thrombosis (DVT) of proximal vein of lower extremity, unspecified laterality (Multi) BMI 31.0-31.9,adult Current every day smoker documented in this encounter [facility] Work Phone: History general Narrative - Reported* Type Description Date Medical History DIABETIC Medical History HTN Medical History HYPERTENSIVE KIDNEY DISEASE WITH STAGE 4 CHRONIC KIDNEY DISEASE Medical History COPD W/ CHRONIC COUGH Medical History HYPERCOAGULABLE SYNDROME Medical History ISCHEMIC DILATED CARDIOMYOPATHY Medical History HISTORY OF TIA Medical History CHRONIC SYSTOMOLIC HEART FAILURE Medical History PORTAL VEIN THROMBOSIS Medical History VITAMIN D DEFICIENCY Medical History HYPOCALCEMIA Medical History OBSTRUCTIVE SLEEP APNEA Medical History HYPERLIPIDEMIA Medical History HIDRADENITIS SUPPURATIVA Medical History ASHD ARTERIOSCLEROTIC HEART DISE ASE Medical History HISTORY OF TIA Medical History ANEMIA OF CHRONIC KIDNEY FAILURE STAGE 4 Surgical History SPLEENECTOMY Surgical History CLAMP ON RT SIDE OF SKULL Surgical History FILTER LEG 2014 Surgical History APPENDECTOMY Surgical History CHOECYSTECTOMY Surgical History SCROTUM RESECTION W/ TESTES IMP LANTED IN THIGH Surgical History PENILE IMPLANT REMOVED 03/2021 Hospitalization History SEE ABOVE Hospitalization History CONGESTIVE HEART FAILURE Hospitalization History HEART ATTACK Hospitalization History CONGESTIVE HEART FAILURE 03/06/2021 [email or web address] Other [employer] general Narrative - Reported* Type Description Date Medical History DIABETIC Medical History HTN Medical History HYPERTENSIVE KIDNEY DISEASE WITH STAGE 4 CHRONIC KIDNEY DISEASE Medical History COPD W/ CHRONIC COUGH Medical History HYPERCOAGULABLE SYNDROME Medical History ISCHEMIC DILATED CARDIOMYOPATHY Medical History HISTORY OF TIA Medical History CHRONIC SYSTOMOLIC HEART FAILURE Medical History PORTAL VEIN THROMBOSIS Medical History VITAMIN D DEFICIENCY Medical History HYPOCALCEMIA Medical History OBSTRUCTIVE SLEEP APNEA Medical History HYPERLIPIDEMIA Medical History HIDRADENITIS SUPPURATIVA Medical History ASHD ARTERIOSCLEROTIC HEART DISE ASE Medical History HISTORY OF TIA Medical History ANEMIA OF CHRONIC KIDNEY FAILURE STAGE 4 Surgical History SPLEENECTOMY Surgical History CLAMP ON RT SIDE OF SKULL Surgical History FILTER LEG 2014 Surgical History APPENDECTOMY Surgical History CHOECYSTECTOMY Surgical History SCROTUM RESECTION W/ TESTES IMP LANTED IN THIGH Surgical History PENILE IMPLANT REMOVED 03/2021 Hospitalization History SEE ABOVE Hospitalization History CONGESTIVE HEART FAILURE Hospitalization History HEART ATTACK Hospitalization History CONGESTIVE HEART FAILURE 03/06/2021 Hospitalization History CHF 10/2021 [email or web address] Other [employer] general Narrative - Reported* Type Description Date Medical History DIABETIC Medical History HTN Medical History HYPERTENSIVE KIDNEY DISEASE WITH STAGE 4 CHRONIC KIDNEY DISEASE Medical History COPD W/ CHRONIC COUGH Medical History HYPERCOAGULABLE SYNDROME Medical History ISCHEMIC DILATED CARDIOMYOPATHY Medical History HISTORY OF TIA Medical History CHRONIC SYSTOMOLIC HEART FAILURE Medical History PORTAL VEIN THROMBOSIS Medical History VITAMIN D DEFICIENCY Medical History HYPOCALCEMIA Medical History OBSTRUCTIVE SLEEP APNEA Medical History HYPERLIPIDEMIA Medical History HIDRADENITIS SUPPURATIVA Medical History ASHD ARTERIOSCLEROTIC HEART DISE ASE Medical History HISTORY OF TIA Medical History ANEMIA OF CHRONIC KIDNEY FAILURE STAGE 4 Surgical History SPLEENECTOMY Surgical History CLAMP ON RT SIDE OF SKULL Surgical History FILTER LEG 2014 Surgical History APPENDECTOMY Surgical History CHOECYSTECTOMY Surgical History SCROTUM RESECTION W/ TESTES IMP LANTED IN THIGH Surgical History PENILE IMPLANT REMOVED 03/2021 Surgical History rt arm avf 2021 Hospitalization History SEE ABOVE Hospitalization History CONGESTIVE HEART FAILURE Hospitalization History HEART ATTACK Hospitalization History CONGESTIVE HEART FAILURE 03/06/2021 Hospitalization History CHF 10/2021 [email or web address] Other History of Present illness Narrative* 60 year old male with complex prosthetic history, presenting for cystoscopy * In recap: * Pt with extensive urologic surgery. H/o hidradenitis s/p scrotal skin excision and bilateral scrotal thigh pouches. * Most recent implants included an explant of right SRPP, washout and placement of AMS spectra 9.5mm x 16cm with 2cm rear-tip on 03/20/17. Pt healed well but reports that he is unable to have penetrative intercourse due to lack of rigidity. Pt had removal of SRPP and replacement of AMS Tactra 11mm x 21cm (R) 21.5 (L) with standard rear tips as well as penoplasty due to excessive penile skin on 09.26.19. * Pt had Excision of genital skin with [employer] on 03/26/2020. * Pt found to have infection and taken to the OR on 07/02/20. Found to have erosion of left cylinder into the urethra and infection. Pt had explant of his implant and cystoscopy with Aponte placement. * Patient was seen 07/12/2020. He reported that he had been doing ok, catheter rather uncomfortable. No f/c. * The patient was last seen 11/23/2020. He reported that he had been doing well, presents to discuss possibility of placement of new implant versus other options. * Patient presents today for cystoscopy due to concern of erosion of left cylinder of prior IPP into urethra. Tolerated well. -[facility] Work Phone: History of Present illness Narrative* 60 year old male with complex prosthetic history, presenting for follow up. * In recap: * Pt with extensive urologic surgery. H/o hidradenitis s/p scrotal skin excision and bilateral scrotal thigh pouches. * Most recent implants included an explant of right SRPP, washout and placement of AMS spectra 9.5mm x 16cm with 2cm rear-tip on 03/20/17. Pt healed well but reports that he is unable to have penetrative intercourse due to lack of rigidity. Pt had removal of SRPP and replacement of AMS Tactra 11mm x 21cm (R) 21.5 (L) with standard rear tips as well as penoplasty due to excessive penile skin on 09.26.19. * Pt underwent excision of genital skin with [employer] on 03/26/2020. * Pt found to have infection and taken to the OR on 07/02/20. Found to have erosion of left cylinder into the urethra and infection. Pt had explant of his implant and cystoscopy with Aponte placement. * Patient underwent a malleable penile implant placement and corporal excavation on 01/20/2021, performed by Dr. Lonnie Hardwick. Placed AMS Tacta 9.5mm cut to size with standard rear tip. * The patient reports today that he has been experiencing significant pain and drainage associated with the implant. [facility] Work Phone: History of Present illness Narrative* Patient is here for follow-up continue management for history of coronary artery disease with previous documentation of occlusion of his LAD. He was recently in the hospital for sepsis and bacteremiaattributed to infected arm shunt. He was treated with antibiotic. He underwent dialysis with markedimprovement of his volume status and symptoms. Return to our record he lost close to 70 pounds since initiating hemodialysis. He is following with the renal service and he indicated to me they may decide to stop dialysis temporarily to see what happens with his kidneys. During that hospitalization he had small non-Q wave myocardial infarction felt to be type II myocardial infarction due to sepsis and bacteremia. The patient reports he feels much better since all the fluid has been removed with dialysis. * Assessment * 1. Symptoms of class II breath due to ischemic cardiomyopathy with total occlusion of the mid LAD which is chronic and moderate disease of the RCA based on previous cardiac catheterization couple of years ago in addition the patient had evidence of significant volume overload due to chronic kidney d isease. Patient report marked improvement since hemodialysis and removing more than 70 pounds of fluid * 2. Ischemic cardiomyopathy with LVEF around 30 to 35% compensated functional class II * 3. Advanced chronic kidney had been on hemodialysis recently but he is telling me there may be a trial to stop dialysis in the near future * 4. History of DVT on Coumadin therapy * 5. Obesity with massive weight loss due to volume removal * 6. Hyperkalemia but by nephrology cannot be on an [place] inhibitor to do that * 7. Hyperlipidemia on atorvastatin * 8. Prior hospitalization for infected penile implant * Plan * 1. Advised the patient to add isosorbide 10 mg 3 times daily to optimize heart failure therapy and the addition of aspirin couple of times a week * 2. I reviewed with him the results of his recent hospitalization record and lab work * 3. Patient was advised to do continue his long-term follow-up with his counseling psychologist. In my opinion he approaching the need to start hemodialysis preparation * 4. Patient was counseled regarding losing weight, exercise and dietary modification * 5. I discussed with patient prophylactic AICD again today.. Following lengthy discussion recent elected to defer for now because of concern about infection based on recent experience with penile implant. He understand the risk of sudden cardiac . He continues to be reluctant to proceed * 6. I discussed with him repeat ischemic evaluation. Patient declined considering his clinical status markedly improved with volume removal and hemodialysis * 7. Risk, benefit and alternative of anticoagulation reviewed with patient he understood [facility] agreed [facility] Work Phone: History of Present illness Narrative* 62 y/o M with CKD on dialysis, ischemic cardiomyopathy, DVT on coumadin, hidradenitis s/p scrotal skin excision and bilateral scrotal thigh pouches referred by Dr. Hardwick for ED * Dr. Hardwick's note reviewed * #Erectile dysfunction * Pt had initial placement of malleable implant some years ago. Had an explant of right SRPP, washoutand placement of AMS spectra 9.5mm x 16cm with 2cm rear- tip on 03/20/17. Pt healed well but reports that he is unable to have penetrative intercourse due to lack of rigidity. Pt had removal of SRPP and replacement of AMS Tactra 11mm x 21cm (R) 21.5 (L) with standard rear tips as well as penoplasty due to excessive penile skin on 09.26.19. Pt underwent excision of genital skin with [employer] on 03/26/2020. Pt found to have infection and taken to the OR on 07/02/20. Found to have erosion of left cylinder into the urethra and infection. Pt had explant of his implant and cystoscopy with Aponte placement. * Patient underwent a malleable penile implant placement and corporal excavation on 01/20/2021, performed by Dr. Lonnie Hardwick. Placed AMS Tacta 9.5mm. This implant later got infected. Patient underwent removal of penile prosthesis, wound irrigation, Mar drain placement, and Aponte catheter placement on 05/01/2021, performed by Dr. Lonnie Hardwick. [id number] Work Phone: History of Present illness Narrative* 62 yo M with DM, HLD, CKD< DVT referred by Dr. West for ED * Dr. Hardwick's note and extensive previous hx reviewed * Dr West's note reviewed * Pt with extensive urologic surgery. Pt also with CKD on dialysis, ischemic cardiomyopathy, DVT on coumadin. H/o hidradenitis s/p scrotal skin excision and bilateral scrotal thigh pouches. * Pt had initial placement of malleable implant some years ago. Had an explant of right SRPP, washoutand placement of AMS spectra 9.5mm x 16cm with 2cm rear- tip on 03/20/17. Pt healed well but reports that he is unable to have penetrative intercourse due to lack of rigidity. Pt had removal of SRPP and replacement of AMS Tactra 11mm x 21cm (R) 21.5 (L) with standard rear tips as well as penoplasty due to excessive penile skin on 09.26.19. Pt underwent excision of genital skin with [employer] Fl[employer]ment on 03/26/2020. Pt found to have infection and taken to the OR on 07/02/20. Found to have erosion of left cylinder into the urethra and infection. Pt had explant of his implant and cystoscopy with Aponte placement. * Patient underwent a malleable penile implant placement and corporal excavation on 01/20/2021, performed by Dr. Lonnie Hardwick. Placed AMS Tacta 9.5mm. This implant later got infected. * Patient underwent removal of penile prosthesis, wound irrigation, [place] drain placement, and Aponte catheter placement on 05/01/2021, performed by Dr. Lonnie Hardwick. [id number] Work Phone: History of Present illness Narrative* Patient is here for follow-up to management for history of two-vessel coronary artery disease basedon heart cath back in 2019, ischemic cardiomyopathy, shortness of breath and hyperlipidemia. Since last time I saw him he denies any change in cardiac status or symptoms. Continues to have functionalclass II shortness of breath. He denies chest pain. He denies lightheadedness, dizziness or syncope. * Assessment * 1. Symptoms of class II breath due to ischemic cardiomyopathy with total occlusion of the mid LAD which is chronic and moderate disease of the RCA based on previous cardiac catheterization couple of years ago in addition the patient had evidence of significant volume overload due to chronic kidney d isease. Patient report marked improvement since hemodialysis * 2. Ischemic cardiomyopathy with LVEF around 30 to 35% compensated functional class II * 3. Advanced chronic kidney started on dialysis * 4. History of DVT on Coumadin therapy request to switch to the newer agent * 5. Obesity with massive weight loss due to volume removal * 6. Hyperkalemia but by nephrology cannot be on an [place] inhibitor to do that * 7. Hyperlipidemia on atorvastatin * 8. Prior hospitalization for infected penile implant * Plan * 1. Advised the patient to continue present medical therapy. I gave him the name of Eliquis 5 mg twice daily if the cost is reasonable we will switch his Coumadin to Eliquis * 2. I advised him to repeat his lab work as ordered * 3. Continue efforts to lose weight and exercise * 4. Patient was counseled regarding smoking cessation * 5. I discussed with patient prophylactic AICD again today.. Following lengthy discussion recent elected to defer for now because of concern about infection based on recent experience with penile implant. He understand the risk of sudden cardiac . He continues to be reluctant to proceed * 6. We will see him back in the office in 6 months and follow-up -[facility] DO Work Phone: Hospital course Narrative No data available for this section [facility] Work Phone: Hospital Discharge instructions No data available for this section [facility]* Name Dates Details Instructions not documented [facility] Work Phone: Progress note No data available for this section [facility] for [facility] (narrative)* Consultation (Routine) - Authorized Specialty Diagnoses / Procedures Referred By Contstevo t Referred To Contact Cardiology Diagnoses Dilated cardiomyopathy (CMS/HCC) Primary hypertension Two-vessel coronary artery disease Procedures Follow Up In Cardiology Gunner Baez MD [address], [place] [address] [place] [id number] Gunner Baez MD [address] [facility] 2, [address] [place] [address] Referral ID Status Reason Start Date Expiration Date V isits Requested Visits Authorized [id number] Authorized 08/31/2023 08/30/2024 1 1 [facility] Work Phone: Reason for referral (narrative)* Consultation (Routine) - Authorized Specialty Diagnoses / Procedures Referred By Tayler t Referred To Contact Cardiology Diagnoses Dilated cardiomyopathy (Multi) Procedures Follow Up In Cardiology Gunner Baez MD [address] [facility] 2, [facility] [address] [place] [address] Gunner Baez MD [address] [place] [address] [facility] 2, [address] [address] Referral ID Status Reason Start Date Expiration Date V isits Requested Visits Authorized [id number] Authorized 12/31/2023 12/30/2024 1 1 [facility] Work Phone: Summary Purpose Family History No Family History Records Found Mother Name Dates Details Family history of (7 99.9, R99) Status:Active Father Name Dates Details Family history of (7 99.9, R99) Status:Active Mother Name Dates Details Family history of (7 99.9, R99) Status:Active Father Name Dates Details Family history of (7 99.9, R99) Status:Active Mother Name Dates Details Family history of (7 99.9, R99) Status:Active Father Name Dates Details Family history of (7 99.9, R99) Status:Active Mother Name Dates Details Family history of (7 99.9, R99) Status:Active Father Name Dates Details Family history of (7 99.9, R99) Status:Active Mother Name Dates Details Family history of (7 99.9, R99) Status:Active Father Name Dates Details Family history of (7 99.9, R99) Status:Active Mother Name Dates Details Family history of (7 99.9, R99) Status:Active Father Name Dates Details Family history of (7 99.9, R99) Status:Active Mother Name Dates Details Family history of (7 99.9, R99) Status:Active Father Name Dates Details Family history of (7 99.9, R99) Status:Active Unknown Family Member Name Dates Details : Mother, Father Status:Active Unknown Family Member Name Dates Details : Mother, Father Status:Active Unknown Family Member Name Dates Details : Mother, Father Status:Active Unknown Family Member Name Dates Details : Mother, Father Status:Active Unknown Family Member Name Dates Details : Mother, Father Status:Active Unknown Family Member Name Dates Details : Mother, Father Status:Active Unknown Family Member Name Dates Details : Mother, Father Status:Active Unknown Family Member Name Dates Details : Mother, Father Status:Active Unknown Family Member Name Dates Details : Mother, Father Status:Active Unknown Family Member Name Dates Details : Mother, Father Status:Active Unknown Family Member Name Dates Details : Mother, Father Status:Active Unknown Family Member Name Dates Details : Mother, Father Status:Active Unknown Family Member Name Dates Details : Mother, Father Status:Active Family history of asthma: Si ster, Brother(V17.5, Z82.5) Status:Active Family history of leukemia: Father(V16.6, Z80.6) Status:Active Family history of cataracts: Father(V19.19, Z83.518) Status:Active Family history of hypertensi on: Mother(V17.49, Z82.49) Status:Active Family history of diabetes m ellitus: Mother(V18.0, Z83.3) Status:Active Unknown Family Member Name Dates Details : Mother, Father Status:Active Family history of asthma: Si ster, Brother(V17.5, Z82.5) Status:Active Family history of leukemia: Father(V16.6, Z80.6) Status:Active Family history of cataracts: Father(V19.19, Z83.518) Status:Active Family history of hypertensi on: Mother(V17.49, Z82.49) Status:Active Family history of diabetes m ellitus: Mother(V18.0, Z83.3) Status:Active Unknown Family Member Name Dates Details : Mother, Father Status:Active Family history of asthma: Si ster, Brother(V17.5, Z82.5) Status:Active Family history of leukemia: Father(V16.6, Z80.6) Status:Active Family history of cataracts: Father(V19.19, Z83.518) Status:Active Family history of hypertensi on: Mother(V17.49, Z82.49) Status:Active Family history of diabetes m ellitus: Mother(V18.0, Z83.3) Status:Active Relationship Condition Age at Onset Recorded Date/T archana father Leukemia Unknown Not Specified Diabetes mellitus Unknown Hypertension Unknown Cerebrovascular accident (CVA) Unknown Unknown Family Member Name Dates Details : Mother, Father Status:Active Family history of asthma: Si ster, Brother(V17.5, Z82.5) Status:Active Family history of leukemia: Father(V16.6, Z80.6) Status:Active Family history of cataracts: Father(V19.19, Z83.518) Status:Active Family history of hypertensi on: Mother(V17.49, Z82.49) Status:Active Family history of diabetes m ellitus: Mother(V18.0, Z83.3) Status:Active Unknown Family Member Name Dates Details : Mother, Father Status:Active Family history of asthma: Si ster, Brother(V17.5, Z82.5) Status:Active Family history of leukemia: Father(V16.6, Z80.6) Status:Active Family history of cataracts: Father(V19.19, Z83.518) Status:Active Family history of hypertensi on: Mother(V17.49, Z82.49) Status:Active Family history of diabetes m ellitus: Mother(V18.0, Z83.3) Status:Active Unknown Family Member Name Dates Details : Mother, Father Status:Active Family history of asthma: Si ster, Brother(V17.5, Z82.5) Status:Active Family history of leukemia: Father(V16.6, Z80.6) Status:Active Family history of cataracts: Father(V19.19, Z83.518) Status:Active Family history of hypertensi on: Mother(V17.49, Z82.49) Status:Active Family history of diabetes m ellitus: Mother(V18.0, Z83.3) Status:Active Unknown Family Member Name Dates Details : Mother, Father Status:Active Family history of asthma: Si ster, Brother(V17.5, Z82.5) Status:Active Family history of leukemia: Father(V16.6, Z80.6) Status:Active Family history of cataracts: Father(V19.19, Z83.518) Status:Active Family history of hypertensi on: Mother(V17.49, Z82.49) Status:Active Family history of diabetes m ellitus: Mother(V18.0, Z83.3) Status:Active Unknown Family Member Name Dates Details : Mother, Father Status:Active Family history of asthma: Si ster, Brother(V17.5, Z82.5) Status:Active Family history of leukemia: Father(V16.6, Z80.6) Status:Active Family history of cataracts: Father(V19.19, Z83.518) Status:Active Family history of hypertensi on: Mother(V17.49, Z82.49) Status:Active Family history of diabetes m ellitus: Mother(V18.0, Z83.3) Status:Active Relationship Condition Age at Onset Recorded Date/T archana father Leukemia Unknown Not Specified Diabetes mellitus Unknown Hypertension Unknown Cerebrovascular accident (CVA) Unknown father Unknown Malignant neoplasm Unknown History of stroke Unknown Unknown Advance Directives No Advanced Directives Records Found Advance Directive Response Recorded Date/ Time Advance Directives No March 11:54am Assessments Diagnosis Corneal ulcer, unspecified l aterality Chief Complaint CystoscopyS/P Malleable Penile ImplantS/P Penile ImplantFUV- post IPP painPost op visitHIEN JOHNSON is being seen for a 6 month follow-up of.* NPV * ED * NPV * ED HIEN JOHNSON is being seen for a 6 month follow-up of. Chief Complaint and Reason for Visit Chief Complaint heart failure abnormal labs, sent by dr CARDOSO ESRD ESRD R arm recent surgery,now burning abd pain Reason for Visit Acute kidney injury superimposed on chronic kidney disease Acute on chronic systolic (congestive) heart failure Anemia of renal disease CKD (chronic kidney disease) stage 4, GFR 15-29 ml/min [id number] Iron deficiency anemia Metabolic acidosis Anticoagulated Ischemic cardiomyopathy Chief Complaint ESRD ESRD ESRD R arm recent surgery,now burning abd pain N18.4 E11.22 I12.9 D63.1 N25.81 N28.9 Chief Complaint Check Up/ Medication s Check Up [facility] [place] [facility] [place] Reason for Visit Chronic HFrEF (heart failure with reduced ejection fraction) Chronic venous insufficiency of lower extremity CKD (chronic kidney disease) Hypercoagulable state [id number] Ischemic cardiomyopathy Additional Source Comments (unrecognized sect ion and content) No Status Records FoundNo Status Records FoundNo Status Records FoundNo Status Records FoundNo Status Records FoundNo Status Records FoundNo Status Records FoundNo Status Records FoundNo Status Records FoundNo Status Records FoundNo Status Records FoundNo Status Records FoundNo Status Records FoundNo Status Records FoundNo Status Records FoundNo Status Records FoundNo Status Records FoundNo Status Records FoundNo Status Records FoundNo Status Records FoundNo Status Records Found INFORMATION SOURCE (unrecogn ized section and content) DATE CREATED AUTHOR 01/11/2018 [facility] DATE CREATED AUTHOR AUTHOR'S ORGANIZ ATION 03/08/2018 [facility] DATE CREATED AUTHOR AUTHOR'S ORGANIZ ATION 07/03/2018 [facility] DATE CREATED AUTHOR AUTHOR'S ORGANIZ ATION 04/06/[address] [facility] DATE CREATED AUTHOR AUTHOR'S ORGANIZ ATION 05/08/2021 [facility] DATE CREATED AUTHOR AUTHOR'S ORGANIZ ATION 05/01/2022 [facility] DATE CREATED AUTHOR AUTHOR'S ORGANIZ ATION 08/03/2022 [facility] DATE CREATED AUTHOR AUTHOR'S ORGANIZ ATION 08/26/2022 [facility] DATE CREATED AUTHOR AUTHOR'S ORGANIZ ATION 10/18/2022 [facility] DATE CREATED AUTHOR AUTHOR'S ORGANIZ ATION 11/20/2022 [facility] DATE CREATED AUTHOR AUTHOR'S ORGANIZ ATION 12/29/2022 [facility] DATE CREATED AUTHOR AUTHOR'S ORGANIZ ATION 08/27/2023 [facility] DATE CREATED AUTHOR AUTHOR'S ORGANIZ ATION 09/03/2023 [facility] DATE CREATED AUTHOR AUTHOR'S ORGANIZ ATION 12/13/2023 [facility] DATE CREATED AUTHOR AUTHOR'S ORGANIZ ATION 03/18/2024 [facility] DATE CREATED AUTHOR AUTHOR'S ORGANIZ ATION 03/20/2024 [facility] REASON FOR VISIT (unrecogniz ed section and content) Reason Comments Fall Reason Comments Toenail Care Non dm nail care Pcp :08/2023 A1c:6.1 Reason Comments Follow-up 6mo Reason Comments Pre-Op Exam Reason Comments Post-op (Ophthalmology) Right Eye Specialty Diagnoses / Procedures Referred By Tayler west Referred To Contact OPHT MAIN Diagnoses Nuclear sclerosis, right Procedures XCAPSL CTRC RMVL INSJ IO LENS PROSTH W/O ECP PHACOEMULSIFICATION CATARACT IMPLANT INTRAOCULAR LENS W/O ENDOSCOPIC CYCLOPHOTOCOAGULATION [facility] [address] [place] [address] Referral ID Status Reason Start Date Expiration Date Visits Re quested Visits Authorized [id number] 1 1 Reason Comments Eye Problem Symptom both eyes bu rning can barely see had cataract surgery 2 weeks left eye feels like there is something in it headache for 3 days each day is getting worse sight is getting much worse Reason Comments Outside provider call Reason Comments bilateral eye pain Reason Comments Eye Pain OD Reason Comments 1 mo PO CE IOL OD, recent ab rasion OD. [place] improving. Denies pain OU. Taking Pred every day And genteal tears BID OD. Reason Comments Return To Work Letter Reason Comments Decreased Vision Both Eyes Reason Comments Follow-up Shortness of Breath Specialty Diagnoses / Procedures Referred By Tayler t Referred To Contact Cardiology Diagnoses Dilated cardiomyopathy (Multi) Primary hypertension Two-vessel coronary artery disease Procedures Follow Up In Cardiology Gunner Baez MD [address] [facility] 2, [address] [address] Gunner Baez MD [address] [facility] 2, [address] [address] Referral ID Status Reason Start Date Expiration Date V isits Requested Visits Authorized [id number] Authorized 08/31/2023 08/30/2024 1 1 Care Teams (unrecognized sec tion and content) Team Status: Inactive Member Role Status Dates Ricarda Al , DO Primary Care Provider Active Armond Hussein APRN Emergency Provider Active Team Status: Inactive Member Role Status Dates Ricarda Al , DO Primary Care Provider Active Ramona Petty MD Attending Provider Active Team Status: Inactive Member Role Status Dates Ricarda Al , DO Primary Care Provider Active Calderon Ferris MD Emergency Provider Active Team Status: Inactive Member Role Status Dates Ricarda Al , DO Primary Care Provider Active Julian Marrero MD Admit Provider, Attending Nisa benítez Active Tristan Wallis MD Other Provider Active Ramona Petty MD Other Provider Active Bettye Arellano , Other Provider Active Team Status: Inactive Member Role Status Dates Ricarda Al , Primary Care Provider Active Paco Silva , DO Emergency Provider Active Team Status: Active Member Role Status Dates Ricarda Al , Primary Care Provider Active Team Status: Inactive Member Role Status Dates Ricarda Al DO Primary Care Provider Active Tristan Wallis MD Attending Provider Active Deep Fat Fry Cook Relationship Specialty Start Date End Date Ricarda Al DO [address] [place] [address] PCP - General Internal Medicine 02/06/18 [employer] Cook Relationship Specialty Start Date End Date Ricarda Al MD [address] [place] [address] PCP - General Internal Medicine 08/27/23 Deep [employer] Fry Cook Relationship Specialty Start Date End Date Ricarda Al MD [address] [facility] [place] [address] PCP - General Internal Medicine 08/27/23 Deep Fat Fry Cook Relationship Specialty Start Date End Date Ricarda Al DO [address] [facility] [place] [address] PCP - General Internal Medicine 08/31/23 Deep Fat Fry Cook Relationship Specialty Start Date End Date Ricarda Al DO [address] [place] [facility] [place] [address] PCP - General Internal Medicine 02/06/18 Deep Fat Fry Cook Relationship Specialty Start Date End Date Ricarda Al DO [address] [place] [facility] [place] [address] PCP - General Internal Medicine 02/06/18 Deep Fat Fry Cook Relationship Specialty Start Date End Date Ricarda Al DO [address] [place] [facility] [place] [address] PCP - General Internal Medicine 02/06/18 Deep Fat Fry Cook Relationship Specialty Start Date End Date Ricarda Al DO [address] [place] [facility] [place] [address] PCP - General Internal Medicine 02/06/18 Deep Fat Fry Cook Relationship Specialty Start Date End Date Ricarda Al DO [address] [place] [facility] [place] [address] PCP - General Internal Medicine 02/06/18 Deep Fat Fry Cook Relationship Specialty Start Date End Date Ricarda Al DO [address] [place] [address] PCP - General Internal Medicine 02/06/18 Deep Fat Fry Cook Relationship Specialty Start Date End Date Ricarda Al DO [address] [place] [address] PCP - General Internal Medicine 02/06/18 Team Status: Inactive Member Role Status Dates Ricarda Al DO Attending Provider Active Sta rt: August 02, 2023 End: August 02, 2023 Team Status: Inactive Member Role Status Dates Ricarda Al DO Attending Provider Active Sta rt: August 13, 2023 End: August 13, 2023 Team Status: Inactive Member Role Status Dates Ricarda Al DO Primary Care Provide r, Attending Provider Active Start: October 23, 2023 End: October 23, 2023 Deep Fat Fry Cook Relationship Specialty Start Date End Date Ricarda Al DO [address] [place] [address] PCP - General Internal Medicine 02/06/18 Deep Fat Fry Cook Relationship Specialty Start Date End Date Ricarda Al DO PCP - General Internal Medicine 08/31/23 Source Comments (unrecognize d section and content) In the event this informatio n is protected by the Federal Confidentiality of Alcohol and Drug Abuse Patient Records regulations: The Federal rules restrict any use of the information to criminally investigate or prosecute any alcohol or drug abuse patient.[facility] the event this information is protected by the Federal Confidentiality of Alcohol and Drug Abuse Patient Records regulations: The Federal rules restrict any use of the information to criminally investigate or prosecute any alcohol or drug abuse patient.[facility] Center[facility] the event this information is protected by the Federal Confidentiality of Alcohol and Drug Abuse Patient Records regulations: The Federal rules restrict any use of the information to criminally investigate or prosecute any alcohol or drug abuse patient.[facility] Center[facility] the event this information is protected by the Federal Confidentiality of Alcohol and Drug Abuse Patient Records regulations: The Federal rules restrict any use of the information to criminally investigate or prosecute any alcohol or drug abuse patient.[facility] Center[facility] the event this information is protected by the Federal Confidentiality of Alcohol and Drug Abuse Patient Records regulations: The Federal rules restrict any use of the information to criminally investigate or prosecute any alcohol or drug abuse patient.[facility] Center[facility] the event this information is protected by the Federal Confidentiality of Alcohol and Drug Abuse Patient Records regulations: The Federal rules restrict any use of the information to criminally investigate or prosecute any alcohol or drug abuse patient.[facility] the event this information is protected by the Federal Confidentiality of Alcohol and Drug Abuse Patient Records regulations: The Federal rules restrict any use of the information to criminally investigate or prosecute any alcohol or drug abuse patient.[facility] Center[facility] the event this information is protected by the Federal Confidentiality of Alcohol and Drug Abuse Patient Records regulations: The Federal rules restrict any use of the information to criminally investigate or prosecute any alcohol or drug abuse patient.[facility] Center[facility] the event this information is protected by the Federal Confidentiality of Alcohol and Drug Abuse Patient Records regulations: The Federal rules restrict any use of the information to criminally investigate or prosecute any alcohol or drug abuse patient.[facility] the event this information is protected by the Federal Confidentiality of Alcohol and Drug Abuse Patient Records regulations: The Federal rules restrict any use of the information to criminally investigate or prosecute any alcohol or drug abuse patient.[facility] Center[facility] the event this information is protected by the Federal Confidentiality of Alcohol and Drug Abuse Patient Records regulations: The Federal rules restrict any use of the information to criminally investigate or prosecute any alcohol or drug abuse patient.[facility] Goals (unrecognized section and content) Goals may be documented in a n alternate section FOR RECORDS PERTAINING TO PATIENTS WHO ARE OR HAVE BEEN ENROLLED IN A CHEMICAL DEPENDENCY/SUBSTANCEABUSE PROGRAM, SOME INFORMATION MAY BE OMITTED. This clinical summary was aggregated from multiple sources. Caution should be exercised in using it in the provision of clinical care. This summary normalizes information from multiple sources, and as a consequence, information in this document may materially change the coding, format and clinical context of patient data. In addition, data may be omitted in some cases. CLINICAL DECISIONS SHOULD BE BASED ON THE PRIMARY CLINICAL RECORDS. [facility] [employer] [facility]. provides no warranty or guarantee of the accuracy or completeness of information in this document.
[2024-03-29] MEDS: HYDROMORPHONE HCL 0.5 MG/0.5 ML SYRINGE IV (07:38)
[2024-03-29 07:51] LABS: Hematocrit 36.4 % (42.0-54.0); Hemoglobin 12.6 g/dL (14.0-18.0); Mean Corpuscular HGB Conc 34.6 g/dL (29.9-35.2); Mean Corpuscular Hemoglobin 28.8 pg (25.9-34.0); Mean Corpuscular Volume 83.1 fL (80.0-94.0); Mean Platelet Volume 10.4 fL (9.5-13.5); Platelet Count 211 10^3/uL (150-450); Red Blood Count 4.38 10^6/uL (4.70-6.10); Red Cell Distribution Width 16.2 % (11.0-15.0); White Blood Count 7.7 10^3/uL (4.0-11.0)
[2024-03-29 08:01] LABS: INR 1.28; Prothrombin Time 13.2 sec (9.0-11.6)
[2024-03-29 08:06] LABS: Alanine Aminotransferase 14 U/L (16-63); Albumin Globulin Ratio 0.7; Alkaline Phosphatase 135 U/L (46-116); Anion Gap 17.7; Aspartate Amino Transferase 20 U/L (15-37); BUN Creatinine Ratio 14.6; Bilirubin Total 2.4 mg/dL (0.2-1.0); Calcium 8.4 mg/dL (8.5-10.1); Carbon Dioxide 21.8 mmol/L (21.0-32.0); Chloride 104 mmol/L (98-107); Estimated GFR (African America 18 (>=60); Estimated GFR (Non-African Ame 15 (>=60); Globulin 4.6 g/dL; Glucose 82 mg/dL (74-106); Potassium 4.5 mmol/L (3.5-5.1); Sodium 139 mmol/L (136-145); Total Protein 7.6 g/dL (6.4-8.2); Troponin I High Sensitivity 26.7 pg/mL (4.0-76.1)
--- NOTE | 2024-03-29 08:11 | CT_ITS ---
[address] [address] Patient Name: HIEN JOHNSON MRN: [id number] date: 1960 Sex: M Assigned Patient Location: ER Current Patient Location: ER Accession/Order Number: [id number] Exam Date: 03/29/2024 08:25 Report Date: 03/29/2024 09:07 At the request of: JIMBO BAEZ Procedure: CT abdomen pelvis wo con EXAMINATION: CT abdomen pelvis wo con HISTORY: abd pain upper hx of ckd and portal vein thrombosi COMPARISON: 05/22/2022 TECHNIQUE: Axial, Coronal, and Sagittal images were created without IV contrast. Dose reduction techniques were achieved by using automated exposure control and/or adjustment of mA and/or kV according to patient size and/or use of iterative reconstruction technique. FINDINGS: LUNG BASES: Pericardial effusion measuring up to 2.9 cm. Bilateral pleural effusions with basilar atelectasis LIVER: No enlargement, atrophy, abnormal density, or significant focal lesion. BILIARY: The gallbladder is nonvisualized PANCREAS: No lesion, fluid collection, ductal dilatation, or atrophy. SPLEEN: The spleen is absent ADRENALS: Suspected 2.8 cm right adrenal nodule. Normal left. KIDNEYS: No mass, obstruction, or calcification. BOWEL/MESENTERY: No visible mass, obstruction, or bowel wall thickening. AORTA/VASCULAR: No aortic aneurysm. Extensive small vessel atherosclerosis. IVC filter with diminutive appearance of the associated inferior vena cava. Moderate abdominal wall varices RETROPERITONEUM: No mass or adenopathy. LYMPH NODES: No adenopathy. URINARY BLADDER: No visible focal wall thickening, lesion, or calculus. PELVIC ORGANS: No visible mass. Pelvic organs appropriate for patient age. ABDOMINAL WALL: Moderate diffuse subcutaneous edema suggesting third spacing of fluid BONES: No bony lesion or fracture. OTHER: Limited exam with no IV or oral contrast CT/CT abdomen pelvis wo con IMPRESSION: Limited noncontrast exam. 2.9 cm pericardial effusion partially visualized Small bilateral pleural effusions with atelectasis Third spacing of fluid in the subcutaneous tissues Electronically authenticated by: BETTYE ADAME Date: 03/29/2024 09:07
[2024-03-29 09:25] LABS: Basophils Abs Manual 0.15 10^3/uL (0.00-0.10); Lymphocytes Absolute Manual 0.69 10^3/uL (1.20-3.80); Monocytes Absolute Manual 0.77 10^3/uL (0.30-0.80); Segmented Neut Absolute Manual 5.77 10^3/uL (1.4-6.5); Target Cells 1+
[2024-03-29 10:06] LABS: Troponin I High Sensitivity 27.1 pg/mL (4.0-76.1)
[2024-03-29 10:14] LABS: NT Pro B Type Natriuretic Pept >35000.0 pg/mL (<=900.0)
[2024-03-29] MEDS: HEPARIN SODIUM 25,000 UNIT/500 ML D5W IV.SOLN 20 UNIT IV (10:51)
[2024-03-29] MEDS: FUROSEMIDE 40 MG/4 ML VIAL 60 MG IVP (11:37)
== END 2024-03-29 13:12 | disposition short-term general hospital (02) ==
PROVIDERS: Emergency Provider Emergency Medicine; PCP Internal Medicine
DX: I50.21 Acute systolic (congestive) heart failure (principal); E87.70 Fluid overload, unspecified; I25.10 Atherosclerotic heart disease of native coronary artery without angina pectoris; N18.9 Chronic kidney disease, unspecified; Z79.01 Long term (current) use of anticoagulants; I81 Portal vein thrombosis; F17.200 Nicotine dependence, unspecified, uncomplicated
CPT/HCPCS: 36415; 71045; 74176; 80053; 83880; 84484; 85007; 85027; 85610; 93005; 96374; 96375; 99285; J1170; J1644; J1940